=== PATIENT | male | born 1955 | race Caucasian/White ===

== ENCOUNTER 2017-01-31 11:50 | Emergency (ER) | payer OTHER ==
[~2017-01-31] VITALS: Ht 188 cm; Wt 155.0 kg
[~2017-01-31 11:50] MED LIST: HYDR-3533 PO
[2017-01-31 11:52] VITALS: BP 132/73; PULSE 95; RESP 20; TEMP 97.9; O2SAT 92
--- NOTE | 2017-01-31 12:15 | PD ---
HPI Chief Complaint: Skin Problem Time Seen by Provider: 12:14 Travel History International Travel<30 days: No Contact w/Intl Traveler<30days: No Traveled to known affect area: No History of Present Illness HPI Is a 61-year-old male with history of peripheral vascular disease, hypertension , diabetes, coronary artery disease, venous stasis dermatitis who presents for evaluation of weeping from right lower extremity venous stasis changes. He reports chronic clear colored weeping from his right lower extremity. He has a wound care nurse come by his house 3 times a week to help with dressing changes. Most recently he had his dressings changed on Saturday. Yesterday when the dressings were taken off he noted some green and yellow discharge which to him indicates an early infection. [facility]. He does endorse mildly increased pain to the right lower extremity with past 3 days as well. Pain is aggravated by palpation, movement. No fevers or chills. No other complaints. PFSH Past Medical History Hx Anticoagulant Therapy: Yes (warfarin) Arthritis: Yes (OA) Asthma: No Atrial Fibrillation: Yes Autoimmune Disease: No Blood Disorders: Yes (PT. HAS HISTORY OF BLOOD CLOTS.) Anxiety: No Depression: No Heart Rhythm Problems: Yes Cardiac Catheterization: Yes Cardiomyopathy: Yes Cardiovascular Problems: Yes High Cholesterol: Yes Chemotherapy: No Chest Pain: Yes Congestive Heart Failure: Yes COPD: Yes Cerebrovascular Accident: Yes (copd) Coronary Artery Disease: Yes Diabetes: Yes Patient Takes Glucophage: Yes Diminished Hearing: No Deep Vein Thrombosis: Yes (MULTIPLE) Endocrine: Yes Gastrointestinal Disorders: No GERD: No Glaucoma: No Genitourinary: No Headaches: Yes Hepatitis: No Hiatal Hernia: No Hypertension: Yes Immune Disorder: No Implanted Vascular Access Dvce: Yes (PORT RIGHT CHEST WALL) Kidney Stones: No Medical other: Yes Musculoskeletal: Yes (DEGENERATIVE DISC DISEASE) Neurologic: Yes (BRAIN SURGERY, ANEURYSM CLIPPED IN 1990, ESSENTIAL TREMORS) Psychiatric: No Reproductive: No Respiratory: Yes Integumentary: Yes (CELLULITIS) Migraines: Yes Myocardial Infarction: Yes (X 2) Radiation Therapy: No Renal Failure: No Seizures: Yes (last seizure 1989) Sleep Apnea: Yes Thyroid Disease: No Ulcer: No Past Surgical History Abdominal Surgery: Yes (APPENDECTOMY) AICD: No Appendectomy: Yes Arteriovenous Shunt: No Body Medical Devices: BRAIN CLIPS, INFUSAPORT TO RIGHT CHEST Cardiac Surgery: No Cholecystectomy: No Ear Surgery: No Endocrine Surgery: No Eye Surgery: No Genitourinary Surgery: No Gynecologic Surgery: No Insulin Pump: No Joint Replacement: No Neurologic Surgery: Yes (BRAIN ANURYSIM CLIPPED IN 1990.) Oral Surgery: No Pacemaker: No Thoracic Surgery: Yes (TENSION PNEUMOTHORAX-CHEST TUBE --RIGHT) Tonsillectomy: Yes (1956) Other Surgery: Yes (RIGHT ULNAR NERVE TRANSPOSITION 1990, HEMORRHOIDECTOMY, INFUSAPORT R-CHEST) Social History Alcohol Use: Yes Tobacco Use: Yes (1 ppd) Substance Use: No (unknown) Allergies-Medications (Allergen,Severity, Reaction): Coded Allergies: Betadine (Verified Allergy, Severe, 06/25/16) Contrast Media (Verified Allergy, Severe, SHOCK, 06/25/16) Iodine (Verified Allergy, Severe, 06/25/16) MRI PRECAUTION (Verified Allergy, Severe, ANEURSYM CLIPPING, 06/25/16) Reported Meds & Prescriptions Reported Meds & Active Scripts Active Ciprofloxacin (Ciprofloxacin HCl) 500 Mg Tab 500 Mg PO BID 10 Days Clindamycin (Clindamycin HCl) 300 Mg Cap 300 Mg PO TID 10 Days Reported Glipizide 10 Mg Tab 20 Mg PO BID Take 30 minutes before a meal Venlafaxine ER 24 HR (Venlafaxine HCl) 150 Mg Tab 300 Mg PO DAILY Vitamin D3 (Cholecalciferol) 1,000 Unit Tab 1,000 Units PO DAILY Diltiazem CD 24 HR 240 Mg Caper 240 Mg PO DAILY Potassium Chloride ER (Potassium Chloride) 10 Meq Cap 10 Meq PO DAILY Primidone 50 Mg Tab 50 Mg PO TID Pravastatin 20 Mg Tab 20 Mg PO HS Warfarin 5 Mg Tab 7.5 Mg PO MOWEFR Take 1&1/2 tabs (7.5mg) on Saturday,Saturday and Saturday Warfarin 5 Mg Tab 5 Mg PO SUTUTHSA Take 1 tablet (5mg) on Saturday,Saturday, and Saturday Folate (Folic Acid) 1 Mg Tab 1 Mg PO DAILY Metformin (Metformin HCl) 500 Mg Tab 1,000 Mg PO DAILY IN THE PM Metformin (Metformin HCl) 500 Mg Tab 1,500 Mg PO DAILY IN THE AM Spironolactone 25 Mg Tab 25 Mg PO DAILY Gabapentin 100 Mg Cap 100 Mg PO Q6HR Baclofen 10 Mg Tab 10 Mg PO TID Review of Systems Except as stated in HPI: all other systems reviewed are Neg Physical Exam Narrative GENERAL: Obese male in no acute distress. SKIN: Warm and dry. See medication of the right lower extremity reveals venous stasis changes, generalized tenderness to palpation, some seeping of yellow fluid from the anterior right coates. Minimal erythematous changes are noted. HEAD: Atraumatic. Normocephalic. EYES: Pupils equal and round. No scleral icterus. No injection or drainage. ENT: No nasal bleeding or discharge. Mucous membranes pink and moist. NECK: Trachea midline. No JVD. CARDIOVASCULAR: Regular rate and rhythm. No murmur appreciated. RESPIRATORY: No accessory muscle use. Clear to auscultation. Breath sounds equal bilaterally. GASTROINTESTINAL: Abdomen soft, non-tender, nondistended. Hepatic and splenic margins not palpable. MUSCULOSKELETAL: No obvious deformities. Skin as noted above with 1+ lower extremity edema. NEUROLOGICAL: Awake and alert. No obvious cranial nerve deficits. Motor grossly within normal limits. Normal speech. Data Data Last Documented VS Vital Signs Date Time Temp Pulse Resp B/P Pulse Ox O2 Delivery O2 Flow Rate FiO2 01/31/17 12:09 16 01/31/17 11:52 97.9 95 132/73 92 Orders Complete Blood Count With Diff (01/31/17 12:13) Basic Metabolic Panel (Bmp) (01/31/17 12:13) Lactic Acid (01/31/17 12:13) Blood Culture (01/31/17 12:13) Wound Culture And Gram Stain (01/31/17 12:13) Iv Access Insert/Monitor (01/31/17 12:13) Prothrombin Time / Inr (Pt) (01/31/17 12:15) Vancomycin Inj (Vancomycin Inj) (01/31/17 13:30) Piperacil-Tazo 3.375 Gm Premix (Zosyn 3. (01/31/17 13:30) Labs Laboratory Tests Test 01/31/17 12:40 White Blood Count 15.5 TH/MM3 Red Blood Count 4.10 MIL/MM3 Hemoglobin 10.8 GM/DL Hematocrit 33.9 % Mean Corpuscular Volume 82.7 FL Mean Corpuscular Hemoglobin 26.4 PG Mean Corpuscular Hemoglobin 31.9 % Concent Red Cell Distribution Width 17.5 % Platelet Count 373 TH/MM3 Mean Platelet Volume 7.7 FL Neutrophils (%) (Auto) 74.7 % Lymphocytes (%) (Auto) 15.3 % Monocytes (%) (Auto) 6.5 % Eosinophils (%) (Auto) 2.6 % Basophils (%) (Auto) 0.9 % Neutrophils # (Auto) 11.6 TH/MM3 Lymphocytes # (Auto) 2.4 TH/MM3 Monocytes # (Auto) 1.0 TH/MM3 Eosinophils # (Auto) 0.4 TH/MM3 Basophils # (Auto) 0.1 TH/MM3 CBC Comment DIFF FINAL Differential Comment Prothrombin Time 25.4 SEC Prothromb Time International 2.2 RATIO Ratio Sodium Level 134 MEQ/L Potassium Level 4.5 MEQ/L Chloride Level 99 MEQ/L Carbon Dioxide Level 27.8 MEQ/L Anion Gap 7 MEQ/L Blood Urea Nitrogen 14 MG/DL Creatinine 0.84 MG/DL Estimat Glomerular Filtration 92 ML/MIN Rate Random Glucose 95 MG/DL Lactic Acid Level 2.0 mmol/L Calcium Level 9.6 MG/DL MDM Medical Decision Making Medical Screen Exam Complete: Yes Emergency Medical Condition: Yes Medical Record Reviewed: Yes Differential Diagnosis Venous stasis dermatitis, early cellulitis, abscess, erysipelas, necrotizing fasciitis, osteomyelitis Narrative Course Physical examination reveals primarily chronic he continues changes to the right lower extremity with some degree of mild superimposed infection. A wound culture was performed. Plans for basic lab work, blood cultures. He will be given vancomycin and Zosyn here. Lab work has been reviewed. He does have some leukocytosis with WBC count of 15.5, 74% neutrophils. He does appear stable for outpatient therapy with close follow-up. Per chart review he has had issues with polymicrobial infections on the right lower extremity so he will require broad-spectrum antibiotics empirically pending culture results. He will be given clindamycin as well as ciprofloxacin for gram-negative coverage. Recommended close monitoring of INR, outpatient follow-up with his primary care physician in 4 days. He understands to return for evidence of worsening infection. He is stable for discharge. Diagnosis Primary Impression: Venous stasis dermatitis of right lower extremity Additional Impression: Cellulitis Qualified Code: L03.115 - Cellulitis of right lower extremity Additional Instructions: Medication as prescribed. Monitor INR while on antibiotics. Follow-up with primary care physician in 3-4 days for recheck. Return for new or worsening symptoms. Med/Other Pt SpecificInfo: Prescription(s) given Scripts Ciprofloxacin 500 Mg [id number] Mg PO BID 10 Days Ref 0 Prov:Louis Cabello MD 01/31/17 Clindamycin 300 Mg [id number] Mg PO TID 10 Days Ref 0 Prov:Louis Cabello MD 01/31/17 Disposition: 01 DISCHARGE HOME Condition: Stable Jose C Hayes January 31, 2017 12:15
[2017-01-31] MEDS ORDERED: VENL150T PO (12:38)
[2017-01-31] MEDS ORDERED: VITA100018 PO (12:38)
[2017-01-31] MEDS ORDERED: GABA100C4 PO (12:38)
[2017-01-31] MEDS ORDERED: FOLI1TAB4 PO (12:38)
[2017-01-31] MEDS ORDERED: PRAV20TA2 PO (12:38)
[2017-01-31] MEDS ORDERED: PRIM50TA5 PO (12:38)
[2017-01-31] MEDS ORDERED: GLIP10TA6 PO (12:38)
[2017-01-31] MEDS ORDERED: BACL10TA PO ×2 (12:38→14:20)
[2017-01-31] MEDS ORDERED: METF500T PO ×2 (12:38)
[2017-01-31] MEDS ORDERED: POTA10CA PO (12:38)
[2017-01-31] MEDS ORDERED: DILT-64 PO (12:38)
[2017-01-31] MEDS ORDERED: WARF-23 PO ×2 (12:38)
[2017-01-31] MEDS ORDERED: SPIR25TA PO (12:38)
[2017-01-31 13:01] LABS: AUTOMATED NEUTROPHIL # 11.6 TH/MM3 (1.8-7.7); BASOPHIL # 0.1 TH/MM3 (0-0.2); BASOPHIL % 0.9 % (0.0-2.0); EOSINOPHIL # 0.4 TH/MM3 (0-0.4); EOSINOPHIL % 2.6 % (0.0-4.0); HEMATOCRIT 33.9 % (39.0-51.0); HEMO FLAGS DIFF FINAL; LYMPH % 15.3 % (9.0-44.0); LYMPHOCYTE # 2.4 TH/MM3 (1.0-4.8); MEAN CELL VOLUME 82.7 FL (80.0-100.0); MEAN CORPUSCULAR HEMOGLOBIN 26.4 PG (27.0-34.0); MEAN CORPUSCULAR HGB CONC 31.9 % (32.0-36.0); MONO % 6.5 % (0.0-8.0); NEUT % 74.7 % (16.0-70.0); PLATELET COUNT 373 TH/MM3 (150-450); RED CELL DISTRIBUTION WIDTH 17.5 % (11.6-17.2); WHITE BLOOD COUNT 15.5 TH/MM3 (4.0-11.0)
[2017-01-31 13:10] LABS: INTERNATIONAL NORMALIZED RATIO 2.2 RATIO; PROTHROMBIN TIME - PATIENT 25.4 SEC (9.8-11.6)
[2017-01-31 13:27] LABS: BICARBONATE 27.8 MEQ/L (21.0-32.0); POTASSIUM 4.5 MEQ/L (3.5-5.1)
[2017-01-31] MEDS ORDERED: PIPERACIL-TAZO 3.375 GM PREMIX 50 ML IV ONE (13:30)
[2017-01-31] MEDS ORDERED: VANCOMYCIN INJ 1,000 MG in SODIUM CHLOR 0.9% 250 ML INJ 250 ML IV ONE (13:30)
[2017-01-31] MEDS ORDERED: CIPR500T2 PO (13:31)
[2017-01-31] MEDS ORDERED: CLIN1CAP6 PO (13:31)
[2017-01-31] MEDS ORDERED: INSU100V2 SQ (14:20)
[2017-01-31] MEDS ORDERED: LYRI100C PO (14:20)
[2017-01-31] MEDS ORDERED: ACETAMINOPHEN/CODEINE 300 MG/30 MG TAB PO ONE (15:30)
[2017-01-31 15:46] VITALS: BP 142/74
== END 2017-01-31 15:48 | disposition home or self-care (01) ==
LOC: NEPE 11:50
DX: L03.115 Cellulitis of right lower limb (principal); I87.2 Venous insufficiency (chronic) (peripheral); I10 Essential (primary) hypertension; E11.9 Type 2 diabetes mellitus without complications; I25.10 Atherosclerotic heart disease of native coronary artery without angina pectoris; I73.9 Peripheral vascular disease, unspecified; I48.91 Unspecified atrial fibrillation; I42.9 Cardiomyopathy, unspecified; E78.00 Pure hypercholesterolemia, unspecified; I50.9 Heart failure, unspecified; J44.9 Chronic obstructive pulmonary disease, unspecified; I25.2 Old myocardial infarction; G47.30 Sleep apnea, unspecified; F17.210 Nicotine dependence, cigarettes, uncomplicated; Z86.718 Personal history of other venous thrombosis and embolism; Z79.01 Long term (current) use of anticoagulants; B96.5 Pseudomonas (aeruginosa) (mallei) (pseudomallei) as the cause of diseases classified elsewhere; B96.4 Proteus (mirabilis) (morganii) as the cause of diseases classified elsewhere; B95.61 Methicillin susceptible Staphylococcus aureus infection as the cause of diseases classified elsewhere
CPT/HCPCS: 80048; 83605; 85025; 85610; 87040; 87070; 87077; 87186; 87205; 96365; 96367; 99283; J1642; J2543; J3370; J7050

== ENCOUNTER 2017-02-05 13:40 | Inpatient (IN) | payer OTHER, MEDICARE ==
[~2017-02-05] VITALS: Ht 188 cm; Wt 156.1 kg
[~2017-02-05 13:40] MED LIST changes: +BACL10TA PO; +CIPR500T2 PO; +CLIN1CAP6 PO; +DILT-64 PO; +FOLI1TAB4 PO; +GABA100C4 PO; +GLIP10TA6 PO; -HYDR-3533 PO; +INSU100V2 SQ; +LYRI100C PO; +METF500T PO; +POTA10CA PO; +PRAV20TA2 PO; +PRIM50TA5 PO; +SPIR25TA PO; +VENL150T PO; +VITA100018 PO; +WARF-23 PO
[2017-02-05 13:48] VITALS: BP 135/77; PULSE 96; TEMP 98.4; O2SAT 96
--- NOTE | 2017-02-05 15:08 | PD ---
HPI Chief Complaint: Skin Problem Time Seen by Provider: 15:08 Travel History International Travel<30 days: No Contact w/Intl Traveler<30days: No Traveled to known affect area: No History of Present Illness HPI 61-year-old male presents to the emergency department sent by the [facility] for IV antibiotics. Patient was seen on Saturday, 3 days ago for infection to the right lower leg. Patient was discharged prescription for clindamycin and ciprofloxacin. He states he is taking these as prescribed, but symptoms are worsening. 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 Patient states his symptoms worsened on . He states that since then, the right lower extremity has become increasingly edematous, or are light drainage and more painful. He denies any fevers. He has no other complaints at this time. PFSH Past Medical History Hx Anticoagulant Therapy: Yes (COUMADIN) Arthritis: Yes (OA) Asthma: No Atrial Fibrillation: Yes Autoimmune Disease: No Blood Disorders: Yes (PT. HAS HISTORY OF BLOOD CLOTS.) Anxiety: No Depression: No Heart Rhythm Problems: Yes Cardiac Catheterization: Yes Cardiomyopathy: Yes Cardiovascular Problems: Yes ([place] X 2) High Cholesterol: Yes Chemotherapy: No Chest Pain: Yes Congestive Heart Failure: Yes COPD: Yes Cerebrovascular Accident: Yes Coronary Artery Disease: Yes Diabetes: Yes Diminished Hearing: No Deep Vein Thrombosis: Yes (MULTIPLE) Endocrine: Yes Gastrointestinal Disorders: No GERD: No Glaucoma: No Genitourinary: No Headaches: Yes Hepatitis: No Hiatal Hernia: No Hypertension: Yes Immune Disorder: No Implanted Vascular Access Dvce: Yes (PORT RIGHT CHEST WALL) Kidney Stones: No Musculoskeletal: Yes (DEGENERATIVE DISC DISEASE) Neurologic: Yes (BRAIN SURGERY, ANEURYSM CLIPPED IN 1990, ESSENTIAL TREMORS) Psychiatric: No Reproductive: No Respiratory: Yes (COPD) Integumentary: Yes (CELLULITIS) Migraines: Yes Myocardial Infarction: Yes (X 2) Radiation Therapy: No Renal Failure: No Seizures: Yes (last seizure 1989) Sleep Apnea: Yes Thyroid Disease: No Ulcer: No Past Surgical History Abdominal Surgery: Yes (APPENDECTOMY) AICD: No Appendectomy: Yes Arteriovenous Shunt: No Body Medical Devices: BRAIN CLIPS, INFUSAPORT TO RIGHT CHEST Cardiac Surgery: No Cholecystectomy: No Ear Surgery: No Endocrine Surgery: No Eye Surgery: No Genitourinary Surgery: No Gynecologic Surgery: No Insulin Pump: No Joint Replacement: No Neurologic Surgery: Yes (BRAIN ANURYSIM CLIPPED IN 1990.) Oral Surgery: No Pacemaker: No Thoracic Surgery: Yes (TENSION PNEUMOTHORAX-CHEST TUBE --RIGHT) Tonsillectomy: Yes (1956) Other Surgery: Yes (RIGHT ULNAR NERVE TRANSPOSITION 1990, HEMORRHOIDECTOMY, INFUSAPORT R-CHEST) Social History Alcohol Use: Yes Tobacco Use: Yes (1 ppd) Substance Use: No (unknown) Allergies-Medications (Allergen,Severity, Reaction): Coded Allergies: Betadine (Verified Allergy, Severe, 02/05/17) Contrast Media (Verified Allergy, Severe, SHOCK, 02/05/17) Iodine (Verified Allergy, Severe, 02/05/17) MRI PRECAUTION (Verified Allergy, Severe, ANEURSYM CLIPPING, 02/05/17) Reported Meds & Prescriptions Reported Meds & Active Scripts Active Ciprofloxacin (Ciprofloxacin HCl) 500 Mg Tab 500 Mg PO BID 10 Days Clindamycin (Clindamycin HCl) 300 Mg Cap 300 Mg PO TID 10 Days Reported Baclofen 10 Mg Tab 10 Mg PO QID PRN Lyrica (Pregabalin) 100 Mg Cap 100 Mg PO TID Humulin R Inj (Insulin Human Regular) 1,000 Unit/10 Ml Vial 40 Units SQ ACHS Max dose at bedtime:( )units; sugars < 70,(0)units; sugars 150-199,(5)units; sugars 200-249,(10)units; sugars 250-299,(15)units; sugars 300-349,(20)units; sugars more than 349,(25)units. Glipizide 10 Mg Tab 20 Mg PO BID Take 30 minutes before a meal Venlafaxine ER 24 HR (Venlafaxine HCl) 150 Mg Tab 300 Mg PO DAILY Vitamin D3 (Cholecalciferol) 1,000 Unit Tab 1,000 Units PO DAILY Diltiazem CD 24 HR 240 Mg Caper 240 Mg PO DAILY Potassium Chloride ER (Potassium Chloride) 10 Meq Cap 10 Meq PO DAILY Primidone 50 Mg Tab 50 Mg PO TID Pravastatin 20 Mg Tab 20 Mg PO HS Warfarin 5 Mg Tab 7.5 Mg PO MOWEFR Take 1&1/2 tabs (7.5mg) on Saturday,Saturday and Saturday Warfarin 5 Mg Tab 5 Mg PO SUTUTHSA Take 1 tablet (5mg) on Saturday,Saturday, and Saturday Folate (Folic Acid) 1 Mg Tab 1 Mg PO DAILY Metformin (Metformin HCl) 500 Mg Tab 1,000 Mg PO DAILY IN THE PM Metformin (Metformin HCl) 500 Mg Tab 1,500 Mg PO DAILY IN THE AM Spironolactone 25 Mg Tab 25 Mg PO DAILY Gabapentin 100 Mg Cap 100 Mg PO Q6HR Baclofen 10 Mg Tab 10 Mg PO TID Review of Systems Except as stated in HPI: all other systems reviewed are Neg Physical Exam Narrative GENERAL: Well-nourished, well-developed obese male patient, afebrile. SKIN: Focused skin assessment warm/dry. Patient has what appears to be chronic swelling of the right lower extremity with foul smelling odor and drainage with erythema that extends from the toes care home up the calf. HEAD: Normocephalic. Atraumatic EYES: No scleral icterus. No injection or drainage. NECK: Supple, trachea midline. No JVD or lymphadenopathy. CARDIOVASCULAR: Regular rate and rhythm without murmurs, gallops, or rubs. Right posterior tibial pulse was found with Doppler. Unable to locate right pedal pulse due to pain. RESPIRATORY: Breath sounds equal bilaterally. No accessory muscle use. Lungs sounds are clear to auscultation. GASTROINTESTINAL: Abdomen soft, non-tender, nondistended. MUSCULOSKELETAL: No cyanosis, or edema. Patient is status post amputation to the left lower extremity. BACK: Nontender without obvious deformity. No CVA tenderness. Data Data Last Documented VS Vital Signs Date Time Temp Pulse Resp B/P Pulse Ox O2 Delivery O2 Flow Rate FiO2 02/05/17 15:01 80 22 02/05/17 13:48 98.4 135/77 96 Orders Complete Blood Count With Diff (02/05/17 14:58) Basic Metabolic Panel (Bmp) (02/05/17 14:58) Prothrombin Time / Inr (Pt) (02/05/17 14:58) Act Partial Throm Time (Ptt) (02/05/17 14:58) Blood Culture (02/05/17 14:58) Foot, Complete (Bsh0ctd) (02/05/17 ) Tibia/Fibula (Ap/Lat) (02/05/17 ) Gentamicin Inj (Gentamicin Inj) (02/05/17 15:15) Lactic Acid Sepsis Protocol (02/05/17 15:23) Admit Order (Ed Use Only) (02/05/17 16:56) Admit To Inpatient (02/05/17 ) Vital Signs (Adult) Q4H (02/05/17 16:57) Activity Oob Ad Asiya (02/05/17 16:57) Diet 1800 Ada Cons Carb (02/05/17 Dinner) Sodium Chloride 0.9% Flush (Ns Flush) (02/05/17 17:00) Sodium Chloride 0.9% Flush (Ns Flush) (02/05/17 21:00) Acetaminophen (Tylenol) (02/05/17 17:00) Ondansetron Inj (Zofran Inj) (02/05/17 17:00) Basic Metabolic Panel (Bmp) (02/06/17 06:00) Complete Blood Count With Diff (02/06/17 06:00) Naloxone Inj (Narcan Inj) (02/05/17 17:00) Inpatient Certification (02/05/17 ) Bedside Glucose CURT.AC&HS (02/05/17 16:57) Blood Glucose Goal (Criteria) (02/05/17 16:57) Hypoglycemia 70 Mg/Dl Or < (02/05/17 16:57) Notify Dr: Other (02/05/17 16:57) Dextrose 50% In Luis Carlos (Vial) Inj (D50w (Vi (02/05/17 17:00) Glucagon Inj (Glucagon Inj) (02/05/17 17:00) Insulin Aspart Supplemtl Scale (Novolog (02/05/17 21:00) Consult Infectious Disease (02/05/17 ) Labs Laboratory Tests Test 02/05/17 15:46 White Blood Count 12.3 TH/MM3 Red Blood Count 3.89 MIL/MM3 Hemoglobin 10.2 GM/DL Hematocrit 31.9 % Mean Corpuscular Volume 81.8 FL Mean Corpuscular Hemoglobin 26.3 PG Mean Corpuscular Hemoglobin 32.1 % Concent Red Cell Distribution Width 17.8 % Platelet Count 343 TH/MM3 Mean Platelet Volume 8.0 FL Neutrophils (%) (Auto) 71.0 % Lymphocytes (%) (Auto) 18.5 % Monocytes (%) (Auto) 6.0 % Eosinophils (%) (Auto) 3.0 % Basophils (%) (Auto) 1.5 % Neutrophils # (Auto) 8.7 TH/MM3 Lymphocytes # (Auto) 2.3 TH/MM3 Monocytes # (Auto) 0.7 TH/MM3 Eosinophils # (Auto) 0.4 TH/MM3 Basophils # (Auto) 0.2 TH/MM3 CBC Comment DIFF FINAL Differential Comment Prothrombin Time 24.5 SEC Prothromb Time International 2.1 RATIO Ratio Activated Partial 68.2 SEC Thromboplast Time Sodium Level 135 MEQ/L Potassium Level 4.0 MEQ/L Chloride Level 99 MEQ/L Carbon Dioxide Level 30.6 MEQ/L Anion Gap 5 MEQ/L Blood Urea Nitrogen 12 MG/DL Creatinine 0.78 MG/DL Estimat Glomerular Filtration 101 ML/MIN Rate Random Glucose 123 MG/DL Lactic Acid Level 1.6 mmol/L Calcium Level 8.9 MG/DL [facility] Medical Decision Making Medical Screen Exam Complete: Yes Emergency Medical Condition: Yes Medical Record Reviewed: Yes Interpretation(s) Last Impressions Tibia/Fibula X-Ray 02/05/17 0000 Signed Impressions: Service Date/Time: Sunday, February 05, 2017 15:19 - CONCLUSION: Diffuse subcutaneous edema and soft tissue swelling. No acute osseous abnormality is identified. Jorge Alberto Bazzi MD Foot X-Ray 02/05/17 0000 Signed Impressions: Service Date/Time: Sunday, February 05, 2017 15:13 - CONCLUSION: Severe relatively diffuse soft tissue swelling of the foot similar to the prior study. No acute osseous abnormality is identified. Jorge Alberto Bazzi MD Differential Diagnosis Venous stasis dermatitis versus cellulitis versus abscess versus osteomyelitis Narrative Course 61-year-old male presents to the emergency department for worsening right lower leg infection, currently on clindamycin and ciprofloxacin with worsening symptoms. CBC, BMP, PTT, PTT/INR, lactic acid are ordered and pending. X-ray of the right foot and right tibia/fibula are ordered and pending. I reviewed the sensitivity of the culture results from the wound culture taken on Saturday which shows that it is sensitive to gentamicin. I contacted the pharmacy for dosing. Pharmacy states that ideal body weight should be used and the dosage is 330 mg. Order is placed. CBC shows leukocytosis 12.3, neutrophilia 71.0. BMP shows no acute abnormality. Lactic acid is 1.6. PTT is 68.2. PT/INR is 24.5/2.1. X-ray of the right foot shows no acute osseous abnormality. X-ray of the right tibia/ fibula shows no acute osseous abnormality. [facility] is paged for admission. Dr. Gonzalez accepted admission. Diagnosis Primary Impression: Cellulitis Qualified Code: L03.115 - Cellulitis of right lower extremity Additional Impression: Venous stasis dermatitis of right lower extremity Admitting Information Admitting Physician Requests: Admit Bernadette Cid February 05, 2017 15:08
[2017-02-05] MEDS ORDERED: SODIUM CHLORIDE 0.9% IV ONE (15:15)
[2017-02-05] MEDS ORDERED: GENTAMICIN IV ONE (15:15)
--- NOTE | 2017-02-05 15:38 | RADRPT ---
EXAM DATE/TIME: 02/05/2017 15:13 [facility] COMPARISON: FOOT RIGHT COMPLETE ([id number]), August 16, 2016, 21:27. INDICATIONS : Pain in right foot. MEDICAL HISTORY : Chronic obstructive pulmonary disease. Stroke. Diabetes SURGICAL HISTORY : Amputation of left lower leg ENCOUNTER: Initial ACUITY: 1 day PAIN SCORE: 0/10 LOCATION: Right foot FINDINGS: 4 views of the right foot demonstrate no fracture or dislocation. Lisfranc joint appears intact. Ther e is severe relatively diffuse soft tissue swelling of the foot. No radiopaque foreign body is seen. CONCLUSION: Severe relatively diffuse soft tissue swelling of the foot similar to the prior study. No acute osseo us abnormality is identified. Jorge Alberto Bazzi MD on February 05, 2017 at 15:35 Board Certified Radiologist. This report was verified electronically.
--- NOTE | 2017-02-05 15:39 | RADRPT ---
EXAM DATE/TIME: 02/05/2017 15:19 [facility] COMPARISON: TIBIA/FIBULA RIGHT (AP/LAT), May 12, 2016, 16:58. INDICATIONS : Lower right leg pain. MEDICAL HISTORY : Stroke. Chronic obstructive pulmonary disease. Diabetes. SURGICAL HISTORY : None. ENCOUNTER: Initial ACUITY: 1 day PAIN SCORE: 0/10 LOCATION: Right tib fib FINDINGS: 4 views of the right leg demonstrate no fracture or dislocation. Mineralization is normal. There is d iffuse soft tissue swelling and subcutaneous edema. Osteoarthritis is present at the knee joint. No r adiopaque foreign body is seen. CONCLUSION: Diffuse subcutaneous edema and soft tissue swelling. No acute osseous abnormality is identified. Jorge Alberto Bazzi MD on February 05, 2017 at 15:37 Board Certified Radiologist. This report was verified electronically.
[2017-02-05 16:15] LABS: AUTOMATED NEUTROPHIL # 8.7 TH/MM3 (1.8-7.7); BASOPHIL # 0.2 TH/MM3 (0-0.2); BASOPHIL % 1.5 % (0.0-2.0); EOSINOPHIL # 0.4 TH/MM3 (0-0.4); HEMATOCRIT 31.9 % (39.0-51.0); HEMO FLAGS DIFF FINAL; LYMPH % 18.5 % (9.0-44.0); LYMPHOCYTE # 2.3 TH/MM3 (1.0-4.8); MEAN CELL VOLUME 81.8 FL (80.0-100.0); MEAN CORPUSCULAR HEMOGLOBIN 26.3 PG (27.0-34.0); MEAN CORPUSCULAR HGB CONC 32.1 % (32.0-36.0); PLATELET COUNT 343 TH/MM3 (150-450); RED BLOOD COUNT 3.89 MIL/MM3 (4.50-5.90); RED CELL DISTRIBUTION WIDTH 17.8 % (11.6-17.2); WHITE BLOOD COUNT 12.3 TH/MM3 (4.0-11.0)
[2017-02-05 16:25] LABS: APTT (PATIENT) 68.2 SEC (24.3-30.1); INTERNATIONAL NORMALIZED RATIO 2.1 RATIO; PROTHROMBIN TIME - PATIENT 24.5 SEC (9.8-11.6)
[2017-02-05 16:36] LABS: BICARBONATE 30.6 MEQ/L (21.0-32.0)
[2017-02-05] MEDS ORDERED: DEXTROSE 50% IN WATER 50 ML VIAL(D50) IV PRN (17:00)
[2017-02-05] MEDS ORDERED: NALOXONE HCL 0.4 MG/ML AMP IV PRN (17:00)
[2017-02-05] MEDS ORDERED: ACETAMINOPHEN 325 MG TAB PO PRN (17:00)
[2017-02-05] MEDS ORDERED: GLUCAGON 1 MG/ML VIAL OTHER PRN (17:00)
[2017-02-05] MEDS ORDERED: ONDANSETRON HCL 4 MG/2 ML VIAL IV ONE (17:30)
[2017-02-05] MEDS ORDERED: MORPHINE SULFATE 4 MG/ML INJ IV PUSH ONE (17:30)
--- NOTE | 2017-02-05 18:29 | HHI.HP ---
[facility] Admission Diagnosis right lower extremity cellulitis, failed outpatient therapy Diagnoses: Chief Complaint: Right leg infection Travel History International Travel<30 Days: No Contact w/Intl Traveler <30 Da: No Traveled to Known Affected Are: No Sepsis Criteria SIRS Criteria (2 or more): Heart rate over 90, RR > 20 or PaCO2 < 32, WBC > 37075, < 4000 or > 10% bands Sepsis Criteria (SIRS+source): Infect source susp/known Criteria Outcome: Meets sepsis criteria History of Present Illness Written by Lawrence Velazco, acting as scribe for Dr. Gonzalez on 02/05/17 at 18:18. 61-year-old male with a past medical history of PAD, HTN, DM, HLD, CAD, CVA who presented for a right leg infection. Last the patient began having redness of his right lower leg. He went to the ED on Saturday and was prescribed antibiotics for clindamycin and ciprofloxacin. The patient reports that the infection has continued to worsen. He has skin sloughing and yellow drainage. He reports severe pain and swelling in his foot. He denies any fevers or chills. 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 He states that due to persistent right leg swelling, oral antibiotics usually do not work for him and he has had to be on home IV antibiotics in the past. He reports they checked his right leg pulses with the Doppler today. Review of Systems Except as stated in HPI: all other systems reviewed are Neg Past Family Social History Past Medical History History obtained from the patient in the EMR PAD Neuropathy Hypertension Hyperlipidemia Diabetes mellitus Heart attack 2 Stroke 3 History of brain aneurysm status post clipping History of DVT on chronic anticoagulation Agent [place] exposure Depression Past Surgical History Aneurysm clipping in 1990 Left AKA Cholecystectomy Appendectomy Tonsillectomy Hemorrhoidectomy Port placement Reported Medications Reported Meds & Active Scripts Active Ciprofloxacin (Ciprofloxacin HCl) 500 Mg Tab 500 Mg PO BID 10 Days Clindamycin (Clindamycin HCl) 300 Mg Cap 300 Mg PO TID 10 Days Reported Lyrica (Pregabalin) 100 Mg Cap 100 Mg PO TID Humulin R Inj (Insulin Human Regular) 1,000 Unit/10 Ml Vial 40 Units SQ HS Max dose at bedtime:( )units; sugars < 70,(0)units; sugars 150-199,(5)units; sugars 200-249,(10)units; sugars 250-299,(15)units; sugars 300-349,(20)units; sugars more than 349,(25)units. Glipizide 10 Mg Tab 20 Mg PO BID Take 30 minutes before a meal Venlafaxine ER 24 HR (Venlafaxine HCl) 150 Mg Tab 300 Mg PO DAILY Vitamin D3 (Cholecalciferol) 1,000 Unit Tab 1,000 Units PO DAILY Diltiazem CD 24 HR 240 Mg Caper 240 Mg PO DAILY Potassium Chloride ER (Potassium Chloride) 10 Meq Cap 10 Meq PO DAILY Primidone 50 Mg Tab 50 Mg PO TID Pravastatin 20 Mg Tab 20 Mg PO HS Warfarin 5 Mg Tab 7.5 Mg PO MOWEFR Take 1&1/2 tabs (7.5mg) on Saturday,Saturday and Saturday Warfarin 5 Mg Tab 5 Mg PO SUTUTHSA Take 1 tablet (5mg) on Saturday,Saturday, and Saturday Folate (Folic Acid) 1 Mg Tab 1 Mg PO DAILY Metformin (Metformin HCl) 500 Mg Tab 1,000 Mg PO DAILY IN THE PM Metformin (Metformin HCl) 500 Mg Tab 1,500 Mg PO DAILY IN THE AM Spironolactone 25 Mg Tab 25 Mg PO DAILY Gabapentin 100 Mg Cap 100 Mg PO Q6HR Baclofen 10 Mg Tab 10 Mg PO TID Allergies: Coded Allergies: Betadine (Verified Allergy, Severe, 02/05/17) Contrast Media (Verified Allergy, Severe, SHOCK, 02/05/17) Iodine (Verified Allergy, Severe, 02/05/17) MRI PRECAUTION (Verified Allergy, Severe, ANEURSYM CLIPPING, 02/05/17) Active Ordered Medications Current Medications Medications (Trade) Dose Ordered Sig/Carrie Route Start Time Stop Time Status Last Admin (NS Flush) 2 ml UNSCH PRN IV FLUSH 02/05/17 17:00 (NS Flush) 2 ml BID IV FLUSH 02/05/17 21:00 (Tylenol) 650 mg Q4H PRN PO 02/05/17 17:00 (Zofran Inj) 4 mg Q6H PRN IVP 02/05/17 17:00 (Narcan Inj) 0.4 mg UNSCH PRN IV 02/05/17 17:00 (D50w (Vial) Inj) 50 ml UNSCH PRN IV 02/05/17 17:00 (Glucagon Inj) 1 mg UNSCH PRN OTHER 02/05/17 17:00 Family History Adopted, family history unknown Social History Continues to smoke, currently less than one pack per day. Has smoked since age 11 Denies any alcohol or drug use Physical Exam Vital Signs Vital Signs Date Time Temp Pulse Resp B/P Pulse Ox O2 Delivery O2 Flow Rate FiO2 02/05/17 15:01 80 22 02/05/17 13:48 98.4 96 135/77 96 Physical Exam GENERAL: Well-developed well-nourished. Morbidly obese. In no acute distress. SKIN: Venous stasis skin changes of the right lower leg. Yellowish drainage and sloughing of the right lower leg. Maceration of the skin of the right lower leg. Swelling, tenderness, and erythema of the dorsum of the foot. HEENT: Normocephalic. Pupils equal and round. Mucous membranes pink and moist. CARDIOVASCULAR: Regular rate and rhythm. No murmur appreciated. RESPIRATORY: No accessory muscle use. Clear to auscultation. Breath sounds equal bilaterally. GASTROINTESTINAL: Abdomen soft, non-tender, nondistended. Bowel sounds x4. MUSCULOSKELETAL: Right lower extremity as above. Left AKA. NEUROLOGICAL: Awake and alert. No focal neurological deficits. Moves upper and lower extremities spontaneously. Normal speech. PSYCHIATRIC: Appropriate mood and affect; insight and judgment normal. Laboratory Laboratory Tests Test 02/05/17 15:46 White Blood Count 12.3 Red Blood Count 3.89 Hemoglobin 10.2 Hematocrit 31.9 Mean Corpuscular Volume 81.8 Mean Corpuscular Hemoglobin 26.3 Mean Corpuscular Hemoglobin 32.1 Concent Red Cell Distribution Width 17.8 Platelet Count 343 Mean Platelet Volume 8.0 Neutrophils (%) (Auto) 71.0 Lymphocytes (%) (Auto) 18.5 Monocytes (%) (Auto) 6.0 Eosinophils (%) (Auto) 3.0 Basophils (%) (Auto) 1.5 Neutrophils # (Auto) 8.7 Lymphocytes # (Auto) 2.3 Monocytes # (Auto) 0.7 Eosinophils # (Auto) 0.4 Basophils # (Auto) 0.2 CBC Comment DIFF FINAL Differential Comment Prothrombin Time 24.5 Prothromb Time International 2.1 Ratio Activated Partial 68.2 Thromboplast Time Sodium Level 135 Potassium Level 4.0 Chloride Level 99 Carbon Dioxide Level 30.6 Anion Gap 5 Blood Urea Nitrogen 12 Creatinine 0.78 Estimat Glomerular Filtration 101 Rate Random Glucose 123 Lactic Acid Level 1.6 Calcium Level 8.9 Date/Time Procedure Status Source Growth 02/05/17 17:50 Aerobic Blood Culture Received Blood Peripheral Pending 02/05/17 17:50 Anaerobic Blood Culture Received Blood Peripheral Pending Result Diagram: 02/05/17 1546 02/05/17 1546 Imaging Last Impressions Tibia/Fibula X-Ray 02/05/17 0000 Signed Impressions: Service Date/Time: Sunday, February 05, 2017 15:19 - CONCLUSION: Diffuse subcutaneous edema and soft tissue swelling. No acute osseous abnormality is identified. Jorge Alberto Bazzi MD Foot X-Ray 02/05/17 0000 Signed Impressions: Service Date/Time: Sunday, February 05, 2017 15:13 - CONCLUSION: Severe relatively diffuse soft tissue swelling of the foot similar to the prior study. No acute osseous abnormality is identified. Jorge Alberto Bazzi MD Assessment and Plan Assessment and Plan 61-year-old male with a past medical history of PAD, HTN, DM, HLD, CAD, CVA who presented for a right leg infection Right lower extremity acute cellulitis overlying chronic venous stasis. Sepsis. Failed outpatient antibiotic therapy. Reviewed: Heart rate 96. Respiratory rate 22. WBC 12.3. Afebrile. Lactic acid 1.6. Right lower extremity X-rays with edema and soft tissue swelling. Wound culture from 01/31 was polymicrobial with Pseudomonas, Proteus mirabilis, and MSSA. -Patient received IV gentamicin in the ED. Will start Vancomycin and Zosyn. -Follow up blood cultures -Consult ID -Doppler documented in the ED but may need further vascular workup. Diabetes mellitus: Monitor Accu-Cheks. Cover with SSI. History of DVT on chronic anticoagulation: On Coumadin with therapeutic INR. Continue Coumadin. Continue chronic medications per the med rec as indicated. This note was transcribed by saji [Juan A Bravo]. I, Dr. Joyce Gonzalez personally performed the history, physical exam, and medical decision making; and confirmed the accuracy of the information in the transcribed note. Authenticated by Dr. Joyce Gonzalez on 02/05/17 at 19:26. Discussed Condition With Patient, ED staff Lawrence Velazco February 05, 2017 18:28 Joyce Gonzalez MD February 05, 2017 19:26
[2017-02-05 19:06] VITALS: BP 141/74; PULSE 93; RESP 18; O2SAT 95
[2017-02-05] MEDS ORDERED: Vancomycin Consult Pharmacy 1 EA OTHER SCH (19:30)
[2017-02-05] MEDS ORDERED: VANCOMYCIN INJ 1,250 MG in SODIUM CHLOR 0.9% 250 ML INJ 250 ML IV SCH (19:30)
[2017-02-05] MEDS: INSULIN ASPART SUPPLEMENTAL SCALE SQ SCH (21:00)
[2017-02-05] MEDS: SODIUM CHLORIDE 0.9% FLUSH 10 ML FLUSH IV FLUSH SCH (21:00)
[2017-02-05] MEDS: PIPERACIL-TAZO 3.375 GM PREMIX 50 ML IV SCH ×2 (21:26→21:30)
[2017-02-05] MEDS: WARFARIN SOD 5 MG TAB PO SCH (21:26)
[2017-02-05 21:29] VITALS: BP 128/59; PULSE 80; RESP 16; O2SAT 94
[2017-02-05] MEDS: VANCOMYCIN INJ 2,000 MG in SODIUM CHLORID 0.9% 500 ML INJ 500 ML IV SCH (22:00)
[2017-02-05] MEDS: GABAPENTIN 100 MG CAP PO SCH (23:50)
[2017-02-05] MEDS: PRAVASTATIN SOD 20 MG TAB PO SCH (23:50)
[2017-02-05] MEDS: MORPHINE SULFATE 4 MG/ML INJ IV PUSH PRN (23:58)
[2017-02-06] VITALS: BP 131/61; PULSE 93; RESP 20; TEMP 96.3; O2SAT 95
[2017-02-06] MEDS: oxyCODONE/ACETAMINOPHEN 7.5 MG/325 MG TAB PO PRN ×3 (01:15→21:56)
[2017-02-06] MEDS: MORPHINE SULFATE 4 MG/ML INJ IV PUSH PRN ×4 (03:08→17:16)
[2017-02-06 04:00] VITALS: BP 141/73; PULSE 100; RESP 20; TEMP 96.9; O2SAT 92
[2017-02-06] MEDS: ONDANSETRON HCL 4 MG/2 ML VIAL IVP PRN ×2 (06:38)
[2017-02-06] MEDS: GABAPENTIN 100 MG CAP PO SCH ×3 (06:39→17:11)
[2017-02-06] MEDS: INSULIN ASPART SUPPLEMENTAL SCALE SQ SCH ×4 (06:47→21:00)
[2017-02-06 07:51] LABS: AUTOMATED NEUTROPHIL # 9.3 TH/MM3 (1.8-7.7); BASOPHIL # 0.1 TH/MM3 (0-0.2); BASOPHIL % 0.6 % (0.0-2.0); EOSINOPHIL # 0.3 TH/MM3 (0-0.4); EOSINOPHIL % 2.7 % (0.0-4.0); HEMATOCRIT 32.1 % (39.0-51.0); HEMO FLAGS DIFF FINAL; LYMPH % 16.3 % (9.0-44.0); MEAN CELL VOLUME 82.2 FL (80.0-100.0); MEAN CORPUSCULAR HEMOGLOBIN 26.4 PG (27.0-34.0); MEAN CORPUSCULAR HGB CONC 32.1 % (32.0-36.0); MONO % 6.9 % (0.0-8.0); NEUT % 73.5 % (16.0-70.0); PLATELET COUNT 320 TH/MM3 (150-450); RED BLOOD COUNT 3.91 MIL/MM3 (4.50-5.90); RED CELL DISTRIBUTION WIDTH 17.7 % (11.6-17.2); WHITE BLOOD COUNT 12.6 TH/MM3 (4.0-11.0)
[2017-02-06 07:56] LABS: BICARBONATE 32.8 MEQ/L (21.0-32.0); POTASSIUM 4.1 MEQ/L (3.5-5.1)
[2017-02-06 08:00] VITALS: BP 149/80; PULSE 105; RESP 16; TEMP 97.7; O2SAT 83
[2017-02-06] MEDS: VANCOMYCIN INJ 2,000 MG in SODIUM CHLORID 0.9% 500 ML INJ 500 ML IV SCH ×2 (09:03→22:00)
[2017-02-06] MEDS: DILTIAZEM-CD 240 MG CAP ER PO SCH (09:04)
[2017-02-06] MEDS: SPIRONOLACTONE 25 MG TAB PO SCH (09:04)
[2017-02-06] MEDS: FOLIC ACID 1 MG TAB PO SCH (09:04)
[2017-02-06] MEDS: CHOLECALCIFEROL (VIT D3) 1000 UNIT TAB PO SCH (09:04)
[2017-02-06] MEDS: POTASSIUM CHLORIDE 10 MEQ CAP PO SCH (09:04)
[2017-02-06] MEDS: VENLAFAXINE HCL XR 75 MG CAP PO SCH (09:04)
[2017-02-06] MEDS: BACLOFEN 10 MG TAB PO SCH ×3 (09:04→17:11)
[2017-02-06] MEDS: PRIMIDONE 50 MG TAB PO SCH ×3 (09:05→17:11)
[2017-02-06] MEDS: PREGABALIN 100 MG CAP PO SCH ×3 (09:05→17:11)
[2017-02-06] MEDS: SODIUM CHLORIDE 0.9% FLUSH 10 ML FLUSH IV FLUSH SCH ×2 (09:05→21:56)
[2017-02-06] MEDS: PIPERACIL-TAZO 3.375 GM PREMIX 50 ML IV SCH (11:59)
[2017-02-06] MEDS: SODIUM CHLORIDE 0.9% FLUSH 10 ML FLUSH IV FLUSH PRN (11:59)
[2017-02-06 12:00] VITALS: BP 125/64; PULSE 95; RESP 16; TEMP 96.5; O2SAT 93
--- NOTE | 2017-02-06 12:13 | PD.ID.CON ---
History of Present Illness Service ID Consult Requested By Dr Nina Reason for Consult LLE cellulitis Primary Care Physician [facility] Diagnoses: History of Present Illness 61 yo morbidly obese laura gamez with h/o contralateral AKA, wheel chair bound present with redns,, pain of his chronically swollen RLE. He was takin g oral abx for 1 week or so without improvement He denies fever, chills nightsweats On admission he has no fever, no leukocytosis and no lactic acidemia Review of Systems Cardiovascular: COMPLAINS OF: Lower Extremity Edema Neurologic: COMPLAINS OF: Abnormal gait, Poor Balance Except as stated in HPI: all other systems reviewed are Neg Past Family Social History Allergies: Coded Allergies: Betadine (Verified Allergy, Severe, 02/05/17) Contrast Media (Verified Allergy, Severe, SHOCK, 02/05/17) Iodine (Verified Allergy, Severe, 02/05/17) MRI PRECAUTION (Verified Allergy, Severe, ANEURSYM CLIPPING, 02/05/17) Past Medical History History obtained from the patient in the EMR PAD Neuropathy Hypertension Hyperlipidemia Diabetes mellitus Heart attack 2 Stroke 3 History of brain aneurysm status post clipping History of DVT on chronic anticoagulation Agent [place] exposure Depression Past Surgical History Aneurysm clipping in 1990 Left AKA Cholecystectomy Appendectomy Tonsillectomy Hemorrhoidectomy Port placement Active Ordered Medications Medications where reviewed in EMR Antibiotics Include: zosyn vancomycin Family History adopted Social History + Tobacco. 1 ppd since 11 yrs No ETOH. No Illicit Drugs. Physical Exam Vital Signs Vital Signs Date Time Temp Pulse Resp B/P Pulse Ox O2 Delivery O2 Flow Rate FiO2 02/06/17 08:00 97.7 105 16 149/80 83 02/06/17 06:51 18 02/06/17 04:00 96.9 100 20 141/73 92 02/06/17 03:19 18 02/06/17 00:00 96.3 93 20 131/61 95 02/05/17 22:15 80 98 02/05/17 21:29 80 16 128/59 94 Room Air 02/05/17 19:06 93 18 141/74 95 Room Air 02/05/17 18:56 18 02/05/17 15:01 80 22 02/05/17 13:48 98.4 96 135/77 96 Physical Exam CONSTITUTIONAL/GENERAL: This is an morbidly obese patient, in no apparent distress. TUBES/LINES/DRAINS: PORT in place R chest - no skin changes around SKIN: No jaundice, rashes, or lesions. Skin temperature appropriate. Not diaphoretic. HEAD: Atraumatic. Normocephalic. EYES: Pupils equal and round and reactive. Extraocular motions intact. No scleral icterus. No injection or drainage. Fundi not examined. ENT: Hearing grossly normal. Nose without bleeding or purulent drainage. Oral mucosae dry without visible erythema, exudates, masses, or lesions. Poor dentition NECK: Trachea midline. Supple, nontender. CARDIOVASCULAR: Regular rate and rhythm without murmurs, gallops, or rubs. No JVD. Peripheral pulses symmetric. RESPIRATORY/CHEST: Symmetric, unlabored respirations. Clear to auscultation. Breath sounds equal bilaterally. No wheezes, rales, or rhonchi. GASTROINTESTINAL: Abdomen soft, obese non-tender, moderately distended. No hepato-splenomegaly, or palpable masses. No guarding. Bowel sounds present. GENITOURINARY: Without palpable bladder distension. MUSCULOSKELETAL: Extremities without clubbing, cyanosis, L AKA - well healed, no edema RLE with 4+ edema from toes to the up to the knee Scaly dry skin + erythema, RLE very tender to palpation especially swollen, macerated toes warm to touch No ulcerations on heel of foot, the re is superficial maceration in [address] web NEUROLOGICAL: Awake and alert. Motor and sensory grossly within normal limits. Follows commands. Normal speech Moves all extremities. PSYCHIATRIC: No obvious anxiety/depression. no apparent hallucinations or other psychotic thought process. Laboratory Laboratory Tests Test 02/05/17 02/06/17 02/06/17 15:46 06:30 07:38 White Blood Count 12.3 12.6 Red Blood Count 3.89 3.91 Hemoglobin 10.2 10.3 Hematocrit 31.9 32.1 Mean Corpuscular Volume 81.8 82.2 Mean Corpuscular Hemoglobin 26.3 26.4 Mean Corpuscular Hemoglobin 32.1 32.1 Concent Red Cell Distribution Width 17.8 17.7 Platelet Count 343 320 Mean Platelet Volume 8.0 7.6 Neutrophils (%) (Auto) 71.0 73.5 Lymphocytes (%) (Auto) 18.5 16.3 Monocytes (%) (Auto) 6.0 6.9 Eosinophils (%) (Auto) 3.0 2.7 Basophils (%) (Auto) 1.5 0.6 Neutrophils # (Auto) 8.7 9.3 Lymphocytes # (Auto) 2.3 2.0 Monocytes # (Auto) 0.7 0.9 Eosinophils # (Auto) 0.4 0.3 Basophils # (Auto) 0.2 0.1 CBC Comment DIFF FINAL DIFF FINAL Differential Comment Prothrombin Time 24.5 Prothromb Time International 2.1 Ratio Activated Partial 68.2 Thromboplast Time Sodium Level 135 135 Potassium Level 4.0 4.1 Chloride Level 99 97 Carbon Dioxide Level 30.6 32.8 Anion Gap 5 5 Blood Urea Nitrogen 12 11 Creatinine 0.78 0.87 Estimat Glomerular Filtration 101 89 Rate Random Glucose 123 141 Lactic Acid Level 1.6 Calcium Level 8.9 8.6 Date/Time Procedure Status Source Growth 02/05/17 17:50 Aerobic Blood Culture - Preliminary Resulted Blood Peripheral NO GROWTH IN 1 DAY 02/05/17 17:50 Anaerobic Blood Culture - Preliminary Resulted Blood Peripheral NO GROWTH IN 1 DAY Result Diagram: 02/06/17 0738 02/06/17 0630 Imaging Last Impressions Tibia/Fibula X-Ray 02/05/17 0000 Signed Impressions: Service Date/Time: Sunday, February 05, 2017 15:19 - CONCLUSION: Diffuse subcutaneous edema and soft tissue swelling. No acute osseous abnormality is identified. Jorge Alberto Bazzi MD Foot X-Ray 02/05/17 0000 Signed Impressions: Service Date/Time: Sunday, February 05, 2017 15:13 - CONCLUSION: Severe relatively diffuse soft tissue swelling of the foot similar to the prior study. No acute osseous abnormality is identified. Jorge Alberto Bazzi MD Assessment and Plan Assessment and Plan Morbid obesity CHronic venostasis Cellulitis, recurrent RLE DM sp L AKA 2/2 diaberic complications - cont vancomycin - keep RLE evelated -dc zosyn - p need to be refirred to venostasis clinic upon dc Discussed Condition With RN pt Lavonne Robins MD February 06, 2017 12:13
--- NOTE | 2017-02-06 13:00 | HHI.PR ---
Subjective Remarks Patient seen in follow-up for right lower extremity cellulitis He reports is feeling okay. Has not noticed any change. Afebrile. Objective Vitals Vital Signs Date Time Temp Pulse Resp B/P Pulse Ox O2 Delivery O2 Flow Rate FiO2 02/06/17 12:00 96.5 95 16 125/64 93 02/06/17 08:00 97.7 105 16 149/80 83 02/06/17 06:51 18 02/06/17 04:00 96.9 100 20 141/73 92 02/06/17 03:19 18 02/06/17 00:00 96.3 93 20 131/61 95 02/05/17 22:15 80 98 02/05/17 21:29 80 16 128/59 94 Room Air 02/05/17 19:06 93 18 141/74 95 Room Air 02/05/17 18:56 18 02/05/17 15:01 80 22 02/05/17 13:48 98.4 96 135/77 96 I/O 02/05/17 02/05/17 02/05/17 02/06/17 02/06/17 02/06/17 07:00 15:00 23:00 07:00 15:00 23:00 Intake Total 360 ml Output Total 400 ml 200 ml Balance -400 ml 160 ml Intake Oral 360 ml Output Urine Total 400 ml 200 ml Result Diagram: 02/06/17 0738 02/06/17 0630 Imaging Last Impressions Tibia/Fibula X-Ray 02/05/17 0000 Signed Impressions: Service Date/Time: Sunday, February 05, 2017 15:19 - CONCLUSION: Diffuse subcutaneous edema and soft tissue swelling. No acute osseous abnormality is identified. Jorge Alberto Bazzi MD Foot X-Ray 02/05/17 0000 Signed Impressions: Service Date/Time: Sunday, February 05, 2017 15:13 - CONCLUSION: Severe relatively diffuse soft tissue swelling of the foot similar to the prior study. No acute osseous abnormality is identified. Jorge Alberto Bazzi MD Objective Remarks GENERAL: Morbidly obese male. Previous amputation of the left lower extremity CARDIOVASCULAR: Normal rate and regular rhythm without murmurs, gallops, or rubs. RESPIRATORY: Good respiratory efforts. Breath sounds equal and clear to auscultation bilaterally. GASTROINTESTINAL: Abdomen soft, non-tender, non-distended. Normal active bowel sounds MUSCULOSKELETAL: Right lower extremity from below the knee down to the top of the right foot, skin is macerated and there is extensive erythema and sloughing off with some drainage. The toes are sausagelike. NEURO: Alert & Oriented x4 to person, place, time, situation. PSYCH: Appropriate mood and affect. A/P Assessment and Plan 61-year-old male with a past medical history of PAD, HTN, DM, HLD, CAD, CVA who presented for a right leg infection Right lower extremity acute cellulitis overlying chronic venous stasis. Sepsis. Failed outpatient antibiotic therapy. Reviewed: Heart rate 96. Respiratory rate 22. WBC 12.3. Afebrile. Lactic acid 1.6. Right lower extremity X-rays with edema and soft tissue swelling. Wound culture from 01/31 was polymicrobial with Pseudomonas, Proteus mirabilis, and MSSA. -Infectious disease following. Zosyn discontinued. Continue vancomycin -Follow up blood cultures - Agree with ID, patient will need follow-up with wound care and venous stasis clinic. Consult wound care physician for assistance and outpatient follow-up recommendations.. Diabetes mellitus: Monitor Accu-Cheks. Cover with SSI. History of DVT on chronic anticoagulation: On Coumadin. Follow INR. Continue chronic medications per the med rec as indicated. Joyce Gonzalez MD February 06, 2017 13:00
[2017-02-06 16:00] VITALS: BP 116/70; PULSE 89; RESP 16; TEMP 95.4; O2SAT 91
[2017-02-06] MEDS: WARFARIN SOD 7.5 MG TAB PO SCH (16:02)
[2017-02-06 20:00] VITALS: BP 128/95; PULSE 75; RESP 18; TEMP 96.2; O2SAT 95
[2017-02-06] MEDS: PRAVASTATIN SOD 20 MG TAB PO SCH (21:55)
[2017-02-07] VITALS (7 sets, daily range): BP systolic 116–139; BP diastolic 58–88; PULSE 72–85; RESP 15–20; TEMP 95.2–97; O2SAT 86–99
[2017-02-07] MEDS: GABAPENTIN 100 MG CAP PO SCH ×4 (00:09→18:04)
[2017-02-07] MEDS: MORPHINE SULFATE 4 MG/ML INJ IV PUSH PRN ×4 (01:31→18:05)
[2017-02-07] MEDS ORDERED: RESP: ALBUTEROL 2.5 MG/IPRATROPIUM 0.5 MG NEB (PRN) NEB (02:45)
--- NOTE | 2017-02-07 02:58 | RADRPT ---
EXAM DATE/TIME: 02/07/2017 02:36 [facility] COMPARISON: CHEST SINGLE AP, June 29, 2016, 6:12. INDICATIONS : Shortness of breath. MEDICAL HISTORY : Chronic obstructive pulmonary disease. Diabetes mellitus type II. Stroke. SURGICAL HISTORY : None. ENCOUNTER: Initial ACUITY: 1 day PAIN SCORE: 0/10 LOCATION: Bilateral chest FINDINGS: A single view of the chest demonstrates the lungs to be symmetrically aerated without evidence of mas s, infiltrate or effusion. The cardiomediastinal contours are unremarkable. Osseous structures are intact. Right-sided [id number] catheter CONCLUSION: Normal examination with a right-sided [id number] catheter in good position. Rikki Corbin MD on February 07, 2017 at 2:56 Board Certified Radiologist. This report was verified electronically.
[2017-02-07] MEDS ORDERED: ACETAMIN 325 MG/BUTALBITAL 50 MG/CAFFEINE 40 MG TAB PO ONE (03:30)
[2017-02-07] MEDS: INSULIN ASPART SUPPLEMENTAL SCALE SQ SCH ×4 (06:50→20:41)
[2017-02-07] MEDS: FOLIC ACID 1 MG TAB PO SCH (08:13)
[2017-02-07] MEDS: PREGABALIN 100 MG CAP PO SCH ×3 (08:13→18:04)
[2017-02-07] MEDS: DILTIAZEM-CD 240 MG CAP ER PO SCH (08:13)
[2017-02-07] MEDS: SPIRONOLACTONE 25 MG TAB PO SCH (08:13)
[2017-02-07] MEDS: POTASSIUM CHLORIDE 10 MEQ CAP PO SCH (08:13)
[2017-02-07] MEDS: BACLOFEN 10 MG TAB PO SCH ×3 (08:13→18:05)
[2017-02-07] MEDS: CHOLECALCIFEROL (VIT D3) 1000 UNIT TAB PO SCH (08:13)
[2017-02-07] MEDS: PRIMIDONE 50 MG TAB PO SCH ×3 (08:13→18:05)
[2017-02-07] MEDS: VENLAFAXINE HCL XR 75 MG CAP PO SCH (08:13)
[2017-02-07] MEDS: SODIUM CHLORIDE 0.9% FLUSH 10 ML FLUSH IV FLUSH SCH ×2 (08:22→20:39)
[2017-02-07] MEDS: SODIUM CHLORIDE 0.9% FLUSH 10 ML FLUSH IV FLUSH PRN ×3 (08:47→18:05)
[2017-02-07] MEDS ORDERED: PHARMACY ORDERED LAB ONE (09:45)
[2017-02-07] MEDS: VANCOMYCIN INJ 2,000 MG in SODIUM CHLORID 0.9% 500 ML INJ 500 ML IV SCH (11:25)
--- NOTE | 2017-02-07 13:00 | PD.WOU.CON ---
Patient Intake Chief Complaint Right lower extremity venous insufficiency with ulceration Consult Requested by Dr. Gonzalez Reason for Consult Evaluation of edema and ulcerations and treatment [facility] of Present Illness Patient is a 61-year-old morbidly obese diabetic male with history of amputation of the left lower extremity. Patient smokes cigarettes daily. He has severe venous insufficiency of the right lower extremity with ulcerations and drainage. [facility] and states that they did not apply any dressings. He drinks large amounts of fluid per day. He sits with his leg in a dependent position most of the day. Coded Allergies: Betadine (Verified Allergy, Severe, 02/05/17) Contrast Media (Verified Allergy, Severe, SHOCK, 02/05/17) Iodine (Verified Allergy, Severe, 02/05/17) MRI PRECAUTION (Verified Allergy, Severe, ANEURSYM CLIPPING, 02/05/17) Preferred Language to Discuss: Sami Barriers to Learning: Physical Teaching Method: Discussion Vital Signs Date Time Temp Pulse Resp B/P Pulse Ox O2 Delivery O2 Flow Rate FiO2 02/07/17 12:00 95.7 72 15 122/60 96 02/07/17 11:37 96 Nasal Cannula 3.00 02/07/17 08:00 95.2 79 15 139/72 96 02/07/17 04:00 96.5 80 20 126/75 99 02/07/17 02:10 97 Simple Mask 6.00 02/07/17 02:05 86 02/07/17 00:00 96.3 76 20 119/62 95 02/06/17 20:00 96.2 75 18 128/95 95 02/06/17 16:00 95.4 89 16 116/70 91 Pain scale used: 0-10 numeric scale Pain score: 5 Medications Current Medications Gentamicin Sulfate/Sodium Chloride (Gentamicin Inj/ NS Inj) 108.25 ml @ 100 mls / hr ONCE ONCE IV Last administered on 02/05/17 17:31; Start 02/05/17 at 15: 15; Stop 02/05/17 at 16:19; Status DC Sodium Chloride (NS Flush) 2 ml UNSCH PRN IV FLUSH FLUSH AFTER USING IV ACCESS Last administered on 02/07/17 08:47; Start 02/05/17 at 17:00 Sodium Chloride (NS Flush) 2 ml BID IV FLUSH Last administered on 02/07/17 08: 22; Start 02/05/17 at 21:00 Acetaminophen (Tylenol) 650 mg Q4H PRN PO TEMP > 100.4, headache Last administered on 02/07/17 02:50; Start 02/05/17 at 17:00 Ondansetron HCl (Zofran Inj) 4 mg Q6H PRN IVP NAUSEA OR VOMITING Last administered on 02/06/17 06:38; Start 02/05/17 at 17:00 Naloxone HCl (Narcan Inj) 0.4 mg UNSCH PRN IV SEE LABEL COMMENTS; Start at 17:00 Dextrose (D50w (Vial) Inj) 50 ml UNSCH PRN IV HYPOGLYCEMIA-SEE COMMENTS; Start 02/05/17 at 17:00 Glucagon (Glucagon Inj) 1 mg UNSCH PRN OTHER HYPOGLYCEMIA-SEE COMMENTS; Start 02/05/17 at 17:00 Insulin Aspart (NovoLOG SUPPLEMENTAL SCALE) 1 ACHS SLIDING SCALE SQ ; Start at 21:00 Ondansetron HCl (Zofran Inj) 4 mg ONCE ONCE IV Last administered on 02/05/17 17:31; Start 02/05/17 at 17:30; Stop 02/05/17 at 17:31; Status DC Morphine Sulfate 4 mg 4 mg ONCE ONCE IV PUSH Last administered on 02/05/17 17 :30; Start 02/05/17 at 17:30; Stop 02/05/17 at 17:31; Status DC Vancomycin HCl 1250 mg/Sodium Chloride 262.5 ml @ 262.5 mls/ hr Q12H IV ; Start 02/05/17 at 19:30; Status UNV Piperacillin Sod/ Tazobactam Sod 50 ml @ 100 mls/hr Q8H IV Last administered on 02/06/17 11:59; Start 02/05/17 at 20:00; Stop 02/06/17 at 12:15; Status DC Pharmacy Profile Note (Vancomycin Consult Pharmacy) 0 ml @ 0 mls/hr UNSCH OTHER ; Start 02/05/17 at 19:30 Baclofen (Lioresal) 10 mg TID PO Last administered on 02/07/17 08:13; Start at 09:00 Cholecalciferol (Vitamin D3) 1,000 units DAILY PO Last administered on 08:13; Start 02/06/17 at 09:00 Diltiazem HCl (Cardizem Cd) 240 mg DAILY PO Last administered on 02/07/17 08: 13; Start 02/06/17 at 09:00 Folic Acid (Folate) 1 mg DAILY PO Last administered on 02/07/17 08:13; Start 02/06/17 at 09:00 Gabapentin (Neurontin) 100 mg Q6HR PO Last administered on 02/07/17 05:47; Start 02/06/17 at 00:00 Potassium Chloride (KCl) 10 meq DAILY PO Last administered on 02/07/17 08:13; Start 02/06/17 at 09:00 Pravastatin Sodium (Pravachol) 20 mg HS PO Last administered on 02/06/17 21:55 ; Start 02/05/17 at 21:00 Pregabalin (Lyrica) 100 mg TID PO Last administered on 02/07/17 08:13; Start 02/06/17 at 09:00 Primidone (Mysoline) 50 mg TID PO Last administered on 02/07/17 08:13; Start 02/06/17 at 09:00 Spironolactone (Aldactone) 25 mg DAILY PO Last administered on 02/07/17 08:13 ; Start 02/06/17 at 09:00 Venlafaxine HCl (Effexor Xr) 300 mg DAILY PO Last administered on 02/07/17 08: 13; Start 02/06/17 at 09:00 Warfarin Sodium (Coumadin) 5 mg SuTuThSa@16 PO Last administered on 02/05/17 21:26; Start 02/05/17 at 19:30 Warfarin Sodium (Coumadin) 7.5 mg MoWeFr@16 PO Last administered on 02/06/17 16:02; Start 02/06/17 at 16:00 Oxycodone/ Acetaminophen (Percocet 7.5-325 Mg) 1 tab Q6H PRN PO PAIN GREATER THAN 5 Last administered on 02/06/17 21:56; Start 02/05/17 at 19:30 Morphine Sulfate 2 mg 2 mg Q3H PRN IV PUSH BREAKTHROUGH PAIN Last administered on 02/07/17 08:47; Start 02/05/17 at 19:30 Vancomycin HCl/ Sodium Chloride (Vancomycin Inj/ NS 500 ml Inj) 520 ml @ 250 mls/hr Q12H IV Last administered on 02/07/17 11:25; Start 02/05/17 at 22:00; Stop 02/07/17 at 11:42; Status DC Miscellaneous Information SPECIFIC LAB TO BE DRAWN:[facility]... ONCE ONCE .XX Last administered on 02/07/17 10:20; Start 02/07/17 at 09:45; Stop 02/07/17 at 09:46 ; Status DC Albuterol/ Ipratropium (Duoneb Neb) 1 ampule Q4HR NEB PRN NEB SOB/WHEEZING Last administered on 02/07/17 02:54; Start 02/07/17 at 02:45 Acetaminophen/ Butalbital/ Caffeine 1 tab 1 tab ONCE ONCE PO Last administered on 02/07/17 03:57; Start 02/07/17 at 03:30; Stop 02/07/17 at 03:32 ; Status DC Vancomycin HCl/ Sodium Chloride (Vancomycin Inj/ NS 500 ml Inj) 520 ml @ 250 mls/hr Q24H IV ; Start 02/08/17 at 11:00 Miscellaneous Information SPECIFIC LAB TO BE DRAWN:VANCOMYCIN TROUGH DATE TO... ONCE ONCE .XX ; Start 02/10/17 at 10:45; Stop 02/10/17 at 10:46 Past, Family & Social History Past Medical History Endocrine: REPORTS HX OF: Diabetes mellitus Respiratory: REPORTS HX OF: COPD Cardiovascular: REPORTS HX OF: Heart failure, Hypertension Past Surgical History Musculoskeletal: REPORTS HX OF: Other musculoskeletal srg (above-knee amputation left lower extremity) Review of Systems Cardiovascular: COMPLAINS OF: Hx CHF / chest pain, Hx hypertension, Uses O2 use at home Integumentary: COMPLAINS OF: Rash Neurological: COMPLAINS OF: Numbness/tingling, Difficulty with balance Wound Assessment Vascular Assessment R Dorsails Pedis: Doppler R Posterior Tibial: Doppler Sensation of Left Extremity: Diminished Sensation of Right Extremity: Diminished Extremities Evaluation: Edema Right Wound Information - Wound One Wound Location: multiple open areas of the right lower extremity Wound Type: Venous Disease Classification: FT- full thickness Photo Taken: No Exudate: Moderate Exudate Type: Serosanguineous Debridement: No Fibrin Amount: Mild Granulation Tissue Color: Pale / Alonso Granulation Tissue Texture: Spongy Exposed: No exposed bone, muscle, tendon Eschar: No Odor: No Periwound Appearance: FINDINGS: Maceration Dressing Notes: Optifoam Gentle AG Lab and Radiology Results Laboratory Laboratory Tests Test 02/05/17 02/06/17 15:46 07:38 White Blood Count 12.3 TH/MM3 12.6 TH/MM3 Red Blood Count 3.89 MIL/MM3 3.91 MIL/MM3 Hemoglobin 10.2 GM/DL 10.3 GM/DL Hematocrit 31.9 % 32.1 % Mean Corpuscular Volume 81.8 FL 82.2 FL Mean Corpuscular Hemoglobin 26.3 PG 26.4 PG Mean Corpuscular Hemoglobin 32.1 % 32.1 % Concent Red Cell Distribution Width 17.8 % 17.7 % Platelet Count 343 TH/MM3 320 TH/MM3 Mean Platelet Volume 8.0 FL 7.6 FL Neutrophils (%) (Auto) 71.0 % 73.5 % Lymphocytes (%) (Auto) 18.5 % 16.3 % Monocytes (%) (Auto) 6.0 % 6.9 % Eosinophils (%) (Auto) 3.0 % 2.7 % Basophils (%) (Auto) 1.5 % 0.6 % Neutrophils # (Auto) 8.7 TH/MM3 9.3 TH/MM3 Lymphocytes # (Auto) 2.3 TH/MM3 2.0 TH/MM3 Monocytes # (Auto) 0.7 TH/MM3 0.9 TH/MM3 Eosinophils # (Auto) 0.4 TH/MM3 0.3 TH/MM3 Basophils # (Auto) 0.2 TH/MM3 0.1 TH/MM3 CBC Comment DIFF FINAL DIFF FINAL Differential Comment Laboratory Tests Test 02/05/17 02/06/17 15:46 06:30 Sodium Level 135 MEQ/L 135 MEQ/L Potassium Level 4.0 MEQ/L 4.1 MEQ/L Chloride Level 99 MEQ/L 97 MEQ/L Carbon Dioxide Level 30.6 MEQ/L 32.8 MEQ/L Anion Gap 5 MEQ/L 5 MEQ/L Blood Urea Nitrogen 12 MG/DL 11 MG/DL Creatinine 0.78 MG/DL 0.87 MG/DL Estimat Glomerular Filtration 101 ML/MIN 89 ML/MIN Rate Random Glucose 123 MG/DL 141 MG/DL Lactic Acid Level 1.6 mmol/L Calcium Level 8.9 MG/DL 8.6 MG/DL Microbiology Date/Time Procedure Status Source Growth 02/05/17 15:45 Aerobic Blood Culture - Preliminary Resulted Blood Peripheral NO GROWTH IN 2 DAYS 02/05/17 15:45 Anaerobic Blood Culture - Preliminary Resulted Blood Peripheral NO GROWTH IN 2 DAYS 02/05/17 17:50 Aerobic Blood Culture - Preliminary Resulted Blood Peripheral NO GROWTH IN 2 DAYS 02/05/17 17:50 Anaerobic Blood Culture - Preliminary Resulted Blood Peripheral NO GROWTH IN 2 DAYS Radiology Last Impressions Chest X-Ray 02/07/17 0000 Signed Impressions: Service Date/Time: January 02:36 - CONCLUSION: Normal examination with a right-sided Luaskt-f-Bhwe catheter in good position. Rikki Corbin MD Tibia/Fibula X-Ray 02/05/17 0000 Signed Impressions: Service Date/Time: Sunday, February 05, 2017 15:19 - CONCLUSION: Diffuse subcutaneous edema and soft tissue swelling. No acute osseous abnormality is identified. Jorge Alberto Bazzi MD Foot X-Ray 02/05/17 0000 Signed Impressions: Service Date/Time: Sunday, February 05, 2017 15:13 - CONCLUSION: Severe relatively diffuse soft tissue swelling of the foot similar to the prior study. No acute osseous abnormality is identified. Jorge Alberto Bazzi MD Assessment/Plan Problem List: (1) Acquired lymphedema Status: Chronic (2) Obesity (BMI 30-39.9) Status: Chronic (3) Tobacco abuse Status: Chronic (4) COPD (chronic obstructive pulmonary disease) Status: Chronic (5) Diabetes mellitus type 2, uncontrolled Status: Chronic (6) Morbidly obese Status: Chronic Additional Plans & Procedures PLAN: Discussed with patient that he needs to keep his leg elevated at all times. Patient needs to limit his fluid intake. Patient needs to stop smoking. Discussed risk of amputation if he does not do the above. Ordered Optifoam Gentle AG dressings to right leg wounds with Manuelito bandage for compression. We' ll follow as needed. Patient needs to go to a lymphedema clinic upon discharge Problem Qualifiers (1) COPD (chronic obstructive pulmonary disease): Qualified Code: J44.9 - Chronic obstructive pulmonary disease, unspecified COPD type (2) Diabetes mellitus type 2, uncontrolled: Qualified Code: E11.51 - Uncontrolled type 2 diabetes mellitus with diabetic peripheral angiopathy without gangrene, with long-term current use of insulin (3) Morbidly obese: Qualified Code: E66.01 - Morbid obesity due to excess calories Florin Zheng DPM February 07, 2017 13:00
--- NOTE | 2017-02-07 14:43 | HHI.PR ---
Subjective Remarks Patient reports he is feeling okay today. He believes the redness is slightly improved. There is less weeping of the right lower extremity. He is afebrile. No chills. Objective Vitals Vital Signs Date Time Temp Pulse Resp B/P Pulse Ox O2 Delivery O2 Flow Rate FiO2 02/07/17 12:00 95.7 72 15 122/60 96 02/07/17 11:37 96 Nasal Cannula 3.00 02/07/17 08:00 95.2 79 15 139/72 96 02/07/17 04:00 96.5 80 20 126/75 99 02/07/17 02:10 97 Simple Mask 6.00 02/07/17 02:05 86 02/07/17 00:00 96.3 76 20 119/62 95 02/06/17 20:00 96.2 75 18 128/95 95 02/06/17 16:00 95.4 89 16 116/70 91 I/O 02/06/17 02/06/17 02/06/17 02/07/17 02/07/17 02/07/17 07:00 15:00 23:00 07:00 15:00 23:00 Intake Total 360 ml 240 ml 60 ml Output Total 200 ml 650 ml 400 ml Balance 160 ml -650 ml -160 ml 60 ml Intake Oral 360 ml 240 ml 60 ml Output Urine Total 200 ml 650 ml 400 ml # Voids 3 1 0 # Bowel Movements 0 0 0 Result Diagram: 02/06/17 0738 02/06/17 0630 Objective Remarks GENERAL: Morbidly obese male. Previous amputation of the left lower extremity CARDIOVASCULAR: Normal rate and regular rhythm without murmurs, gallops, or rubs. RESPIRATORY: Good respiratory efforts. Breath sounds equal and clear to auscultation bilaterally. GASTROINTESTINAL: Abdomen soft, non-tender, non-distended. Normal active bowel sounds MUSCULOSKELETAL: Right lower extremity from below the knee down to the top of the right foot, skin is macerated and sloughing off with some drainage. The toes are sausagelike. NEURO: Alert & Oriented x4 to person, place, time, situation. PSYCH: Appropriate mood and affect. A/P Assessment and Plan 61-year-old male with a past medical history of PAD, HTN, DM, HLD, CAD, CVA who presented for a right leg infection Right lower extremity acute cellulitis overlying chronic venous stasis. Sepsis. Failed outpatient antibiotic therapy. On admission Heart rate 96. Respiratory rate 22. WBC 12.3. Afebrile. Lactic acid 1.6. Right lower extremity X-rays with edema and soft tissue swelling. Wound culture from 01/31 was polymicrobial with Pseudomonas, Proteus mirabilis, and MSSA. - Infectious disease following. Zosyn discontinued. Continue vancomycin - Follow up blood cultures - Agree with ID, patient will need follow-up with wound care and venous stasis clinic. Discussed with ID, plan to discharge on home IV antibiotics tomorrow. - Appreciate wound care physician, Dr. Zheng recommendations. Patient will need follow-up by the lymphedema clinic. [facility] I advised them to follow up on that after discharge. Diabetes mellitus: Monitor Accu-Cheks. Cover with SSI. History of DVT on chronic anticoagulation: On Coumadin. Follow INR. Continue chronic medications per the med rec as indicated. Discharge Planning Probable discharge tomorrow with home health and IV antibiotics if he continues to improve. Joyce Gonzalez MD February 07, 2017 14:43
[2017-02-07] MEDS: WARFARIN SOD 5 MG TAB PO SCH (18:04)
[2017-02-07] MEDS: PRAVASTATIN SOD 20 MG TAB PO SCH (20:38)
[2017-02-07] MEDS: oxyCODONE/ACETAMINOPHEN 7.5 MG/325 MG TAB PO PRN (20:38)
[2017-02-08] VITALS: BP 124/59; PULSE 88; RESP 20; TEMP 96.2; O2SAT 92
[2017-02-08] MEDS: GABAPENTIN 100 MG CAP PO SCH ×5 (00:22→23:37)
[2017-02-08 04:00] VITALS: BP 114/56; PULSE 84; RESP 20; TEMP 97.1; O2SAT 94
[2017-02-08 06:01] LABS: HEMATOCRIT 28.1 % (39.0-51.0); MEAN CELL VOLUME 83.3 FL (80.0-100.0); MEAN CORPUSCULAR HEMOGLOBIN 26.3 PG (27.0-34.0); MEAN CORPUSCULAR HGB CONC 31.6 % (32.0-36.0); PLATELET COUNT 270 TH/MM3 (150-450); RED BLOOD COUNT 3.37 MIL/MM3 (4.50-5.90); RED CELL DISTRIBUTION WIDTH 17.3 % (11.6-17.2); REVIEW FLAG FINAL; WHITE BLOOD COUNT 9.8 TH/MM3 (4.0-11.0)
[2017-02-08] MEDS: oxyCODONE/ACETAMINOPHEN 7.5 MG/325 MG TAB PO PRN ×2 (06:08→17:03)
[2017-02-08] MEDS: INSULIN ASPART SUPPLEMENTAL SCALE SQ SCH ×4 (06:10→21:00)
[2017-02-08 06:24] LABS: BICARBONATE 33.6 MEQ/L (21.0-32.0); POTASSIUM 4.2 MEQ/L (3.5-5.1)
[2017-02-08 08:28] VITALS: BP 142/63; PULSE 87; RESP 18; TEMP 97
[2017-02-08] MEDS: BACLOFEN 10 MG TAB PO SCH ×3 (09:00→17:04)
[2017-02-08] MEDS: POTASSIUM CHLORIDE 10 MEQ CAP PO SCH (09:03)
[2017-02-08] MEDS: FOLIC ACID 1 MG TAB PO SCH (09:03)
[2017-02-08] MEDS: SODIUM CHLORIDE 0.9% FLUSH 10 ML FLUSH IV FLUSH SCH ×2 (09:03→20:41)
[2017-02-08] MEDS: CHOLECALCIFEROL (VIT D3) 1000 UNIT TAB PO SCH (09:03)
[2017-02-08] MEDS: SPIRONOLACTONE 25 MG TAB PO SCH (09:03)
[2017-02-08] MEDS: VENLAFAXINE HCL XR 75 MG CAP PO SCH (09:03)
[2017-02-08] MEDS: PREGABALIN 100 MG CAP PO SCH ×3 (09:03→17:03)
[2017-02-08] MEDS: PRIMIDONE 50 MG TAB PO SCH ×3 (09:03→17:04)
[2017-02-08] MEDS: DILTIAZEM-CD 240 MG CAP ER PO SCH (09:03)
[2017-02-08] MEDS: MORPHINE SULFATE 4 MG/ML INJ IV PUSH PRN ×2 (09:31→20:39)
[2017-02-08] MEDS: VANCOMYCIN INJ 2,000 MG in SODIUM CHLORID 0.9% 500 ML INJ 500 ML IV SCH (11:00)
[2017-02-08 12:00] VITALS: BP 124/66; PULSE 86; RESP 18; TEMP 96.5; O2SAT 90
--- NOTE | 2017-02-08 13:30 | HHI.FF ---
Face to Face Verification Diagnosis: (1) Cellulitis (2) Venous stasis dermatitis of right lower extremity (3) Acquired lymphedema (4) Morbidly obese (5) Wound infection Physical Therapy Order: Evaluate and Treat, Improve ambulation, Strength and gait training Home Health Nursing Order: Medical education Wound care and dressing changes (Optifoam Gentle AG dressings to right leg wounds with Manuelito bandage for compression.) I have seen patient Jorge Alberto Contreras on 02/08/17. My clinical findings support the need for the requested home health care services because: Ltd mobility - disease progression Limited ability to care for self Need for psychosocial assistance Infection w/ risk of complications I certify that my clinical findings support that this patient is homebound because: Need for psychosocial assistance Joyce Gonzalez MD February 08, 2017 13:30
--- NOTE | 2017-02-08 13:35 | HHI.PR ---
Subjective Remarks Patient reports that he is doing OK. 09/19 blood cultures pos for gram pos cocci. No fevers or chills. Leg erythema and pain improved. Objective Vitals Vital Signs Date Time Temp Pulse Resp B/P Pulse Ox O2 Delivery O2 Flow Rate FiO2 02/08/17 13:26 02/08/17 12:00 96.5 86 18 124/66 90 02/08/17 10:04 02/08/17 08:28 97.0 87 18 142/63 02/08/17 07:36 Nasal Cannula 2.00 02/08/17 04:10 99 Nasal Cannula 2.00 02/08/17 04:00 97.1 84 20 114/56 94 02/08/17 00:00 96.2 88 20 124/59 92 02/07/17 20:41 98 Nasal Cannula 2.00 02/07/17 20:00 97.0 85 20 116/88 93 02/07/17 17:40 96.1 78 16 120/58 96 I/O 02/07/17 02/07/17 02/07/17 02/08/17 02/08/17 02/08/17 07:00 15:00 23:00 07:00 15:00 23:00 Intake Total 60 ml 480 ml 240 ml Output Total 325 ml 400 ml Balance 60 ml 155 ml -160 ml Intake Oral 60 ml 480 ml 240 ml Output Urine Total 325 ml 400 ml # Voids 0 0 1 # Bowel Movements 0 0 0 Result Diagram: 02/08/17 0540 02/08/17 0540 Objective Remarks GENERAL: Morbidly obese male. Previous amputation of the left lower extremity CARDIOVASCULAR: Normal rate and regular rhythm without murmurs, gallops, or rubs. RESPIRATORY: Good respiratory efforts. Breath sounds equal and clear to auscultation bilaterally. GASTROINTESTINAL: Abdomen soft, non-tender, non-distended. Normal active bowel sounds MUSCULOSKELETAL: Right lower extremity from below the knee down to the top of the right foot, skin is macerated and sloughing off with some drainage. The toes are sausagelike. NEURO: Alert & Oriented x4 to person, place, time, situation. PSYCH: Appropriate mood and affect. A/P Assessment and Plan 61-year-old male with a past medical history of PAD, HTN, DM, HLD, CAD, CVA who presented for a right leg infection Right lower extremity acute cellulitis overlying chronic venous stasis. Sepsis. Failed outpatient antibiotic therapy. On admission Heart rate 96. Respiratory rate 22. WBC 12.3. Afebrile. Lactic acid 1.6. Right lower extremity X-rays with edema and soft tissue swelling. Wound culture from 01/31 was polymicrobial with Pseudomonas, Proteus mirabilis, and MSSA. - Infectious disease following. Zosyn discontinued. Continue vancomycin - Follow up blood cultures. 09/19 so far pos. - Agree with ID, patient will need follow-up with wound care and venous stasis clinic. Discussed with ID, continue to follow cultures. - Appreciate wound care physician, Dr. Zheng recommendations. Patient will need follow-up by the lymphedema clinic. He [facility] I advised them to follow up on that after discharge. Diabetes mellitus: Monitor Accu-Cheks. Cover with SSI. History of DVT on chronic anticoagulation: On Coumadin. Follow INR. Continue chronic medications per the med rec as indicated. Discharge Planning Patient staying for more IV antibiotics. Blood cultures positive. Continue to follow cultures. Joyce Gonzalez MD February 08, 2017 13:35
--- NOTE | 2017-02-08 13:37 | HHI.IDPN ---
Subjective Subjective Remarks not feeling well afebrile blood clx growing GPC Antibiotics vancomycin Allergies: Coded Allergies: Betadine (Verified Allergy, Severe, 02/05/17) Contrast Media (Verified Allergy, Severe, SHOCK, 02/05/17) Iodine (Verified Allergy, Severe, 02/05/17) MRI PRECAUTION (Verified Allergy, Severe, ANEURSYM CLIPPING, 02/05/17) Objective . Vital Signs Date Time Temp Pulse Resp B/P Pulse Ox O2 Delivery O2 Flow Rate FiO2 02/08/17 13:26 02/08/17 12:00 96.5 86 18 124/66 90 02/08/17 10:04 02/08/17 08:28 97.0 87 18 142/63 02/08/17 07:36 Nasal Cannula 2.00 02/08/17 04:10 99 Nasal Cannula 2.00 02/08/17 04:00 97.1 84 20 114/56 94 02/08/17 00:00 96.2 88 20 124/59 92 02/07/17 20:41 98 Nasal Cannula 2.00 02/07/17 20:00 97.0 85 20 116/88 93 02/07/17 17:40 96.1 78 16 120/58 96 02/07/17 02/07/17 02/08/17 15:00 23:00 07:00 Intake Total 480 ml 240 ml Output Total 325 ml 400 ml Balance 155 ml -160 ml Intake Oral 480 ml 240 ml Output Urine Total 325 ml 400 ml # Voids 0 1 # Bowel Movements 0 0 . Laboratory Tests Test 02/08/17 05:40 White Blood Count 9.8 TH/MM3 Red Blood Count 3.37 MIL/MM3 Hemoglobin 8.9 GM/DL Hematocrit 28.1 % Mean Corpuscular Volume 83.3 FL Mean Corpuscular Hemoglobin 26.3 PG Mean Corpuscular Hemoglobin 31.6 % Concent Red Cell Distribution Width 17.3 % Platelet Count 270 TH/MM3 Mean Platelet Volume 7.7 FL Laboratory Tests Test 02/08/17 05:40 Sodium Level 137 MEQ/L Potassium Level 4.2 MEQ/L Chloride Level 100 MEQ/L Carbon Dioxide Level 33.6 MEQ/L Anion Gap 3 MEQ/L Blood Urea Nitrogen 11 MG/DL Creatinine 0.65 MG/DL Estimat Glomerular Filtration 124 ML/MIN Rate Random Glucose 151 MG/DL Calcium Level 8.0 MG/DL Microbiology Date/Time Procedure Status Source Growth 02/05/17 15:45 Aerobic Blood Culture - Preliminary Resulted Blood Peripheral NO GROWTH IN 3 DAYS 02/05/17 15:45 Anaerobic Blood Culture - Preliminary Resulted Gram Positive Cocci 02/05/17 17:50 Aerobic Blood Culture - Preliminary Resulted Blood Peripheral NO GROWTH IN 3 DAYS 02/05/17 17:50 Anaerobic Blood Culture - Preliminary Resulted Blood Peripheral NO GROWTH IN 3 DAYS Imaging Last Impressions Chest X-Ray 02/07/17 0000 Signed Impressions: Service Date/Time: January 02:36 - CONCLUSION: Normal examination with a right-sided Ffyxak-[id number]-Pkfp catheter in good position. Rikki Corbin MD Tibia/Fibula X-Ray 02/05/17 0000 Signed Impressions: Service Date/Time: Sunday, February 05, 2017 15:19 - CONCLUSION: Diffuse subcutaneous edema and soft tissue swelling. No acute osseous abnormality is identified. Jorge Alberto Bazzi MD Foot X-Ray 02/05/17 0000 Signed Impressions: Service Date/Time: Sunday, February 05, 2017 15:13 - CONCLUSION: Severe relatively diffuse soft tissue swelling of the foot similar to the prior study. No acute osseous abnormality is identified. Jorge Alberto Bazzi MD Physical Exam CONSTITUTIONAL/GENERAL: This is an morbidly obese patient, in no apparent distress. PORT in place R chest - no skin changes around SKIN: No jaundice, rashes, or lesions. Skin temperature appropriate. Not diaphoretic. HEAD: Atraumatic. Normocephalic. EYES: Pupils equal and round and reactive. Extraocular motions intact. No scleral icterus. No injection or drainage. Fundi not examined. ENT: Hearing grossly normal. Nose without bleeding or purulent drainage. Oral mucosae dry without visible erythema, exudates, masses, or lesions. Poor dentition CARDIOVASCULAR: Regular rate and rhythm without murmurs, gallops, or rubs. No JVD. Peripheral pulses symmetric. RESPIRATORY/CHEST: Symmetric, unlabored respirations. Clear to auscultation. Breath sounds equal bilaterally. No wheezes, rales, or rhonchi. GASTROINTESTINAL: Abdomen soft, obese non-tender, moderately distended. No hepato-splenomegaly, or palpable masses. No guarding. Bowel sounds present. GENITOURINARY: Without palpable bladder distension. MUSCULOSKELETAL: Extremities without clubbing, cyanosis, L AKA RLE with dressing in place, visualised skin less edematous and less erythematous warm to touch less tender to touch NEUROLOGICAL: Awake and alert. 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
[2017-02-08] MEDS: WARFARIN SOD 7.5 MG TAB PO SCH (16:00)
[2017-02-08 16:17] VITALS: BP 134/63; PULSE 85; RESP 18; TEMP 96.4; O2SAT 94
[2017-02-08 20:30] VITALS: BP 137/68; PULSE 73; RESP 21; TEMP 97.9; O2SAT 96
[2017-02-08] MEDS: PRAVASTATIN SOD 20 MG TAB PO SCH (20:37)
[2017-02-09 00:30] VITALS: BP 130/62; PULSE 75; RESP 20; TEMP 98.8; O2SAT 95
[2017-02-09] MEDS: oxyCODONE/ACETAMINOPHEN 7.5 MG/325 MG TAB PO PRN ×3 (03:35→17:46)
[2017-02-09 05:00] VITALS: BP 149/70; PULSE 88; RESP 24; TEMP 97.3; O2SAT 94
[2017-02-09] MEDS: GABAPENTIN 100 MG CAP PO SCH ×4 (06:09→23:31)
[2017-02-09] MEDS: MORPHINE SULFATE 4 MG/ML INJ IV PUSH PRN ×4 (06:10→19:55)
[2017-02-09] MEDS: INSULIN ASPART SUPPLEMENTAL SCALE SQ SCH ×4 (07:00→21:00)
[2017-02-09 07:04] LABS: HEMATOCRIT 29.5 % (39.0-51.0); MEAN CELL VOLUME 82.8 FL (80.0-100.0); MEAN CORPUSCULAR HEMOGLOBIN 26.2 PG (27.0-34.0); MEAN CORPUSCULAR HGB CONC 31.7 % (32.0-36.0); PLATELET COUNT 288 TH/MM3 (150-450); RED BLOOD COUNT 3.56 MIL/MM3 (4.50-5.90); RED CELL DISTRIBUTION WIDTH 17.6 % (11.6-17.2); REVIEW FLAG FINAL; WHITE BLOOD COUNT 10.2 TH/MM3 (4.0-11.0)
[2017-02-09 07:50] LABS: BICARBONATE 33.7 MEQ/L (21.0-32.0); POTASSIUM 4.1 MEQ/L (3.5-5.1)
[2017-02-09 08:49] VITALS: BP 179/106; PULSE 97; RESP 20; TEMP 96.4; O2SAT 93
[2017-02-09] MEDS: POTASSIUM CHLORIDE 10 MEQ CAP PO SCH (09:38)
[2017-02-09] MEDS: SPIRONOLACTONE 25 MG TAB PO SCH (09:38)
[2017-02-09] MEDS: VENLAFAXINE HCL XR 75 MG CAP PO SCH (09:38)
[2017-02-09] MEDS: BACLOFEN 10 MG TAB PO SCH ×3 (09:38→17:45)
[2017-02-09] MEDS: PRIMIDONE 50 MG TAB PO SCH ×3 (09:38→17:45)
[2017-02-09] MEDS: FOLIC ACID 1 MG TAB PO SCH (09:38)
[2017-02-09] MEDS: PREGABALIN 100 MG CAP PO SCH ×3 (09:38→17:45)
[2017-02-09] MEDS: DILTIAZEM-CD 240 MG CAP ER PO SCH (09:38)
[2017-02-09] MEDS: CHOLECALCIFEROL (VIT D3) 1000 UNIT TAB PO SCH (09:38)
[2017-02-09] MEDS: SODIUM CHLORIDE 0.9% FLUSH 10 ML FLUSH IV FLUSH SCH ×2 (09:40→19:58)
[2017-02-09] MEDS: VANCOMYCIN INJ 2,000 MG in SODIUM CHLORID 0.9% 500 ML INJ 500 ML IV SCH (11:33)
[2017-02-09 12:08] VITALS: BP 119/59; PULSE 101; RESP 20; TEMP 97.8; O2SAT 92
--- NOTE | 2017-02-09 13:19 | HHI.PR ---
Subjective Remarks Patient reports is feeling okay today. No fevers or chills. He reports significant pain with dressing changes. Reports that right lower extremity erythema has significantly improved. There is still some drainage in the whole leg is painful. Objective Vitals Vital Signs Date Time Temp Pulse Resp B/P Pulse Ox O2 Delivery O2 Flow Rate FiO2 02/09/17 12:08 97.8 101 20 119/59 92 02/09/17 08:49 96.4 97 20 179/106 93 02/09/17 08:15 Nasal Cannula 2.00 02/09/17 05:00 97.3 88 24 149/70 94 02/09/17 00:30 98.8 75 20 130/62 95 02/08/17 21:30 Nasal Cannula 2.00 02/08/17 20:30 97.9 73 21 137/68 96 02/08/17 17:32 02/08/17 16:17 96.4 85 18 134/63 94 02/08/17 13:26 I/O 02/08/17 02/08/17 02/08/17 02/09/17 02/09/17 02/09/17 07:00 15:00 23:00 07:00 15:00 23:00 Intake Total 240 ml 360 ml 1000 ml 950 ml Output Total 400 ml 400 ml 500 ml 1500 ml 250 ml Balance -160 ml -40 ml 500 ml -550 ml -250 ml Intake Oral 240 ml 360 ml 1000 ml 950 ml Output Urine Total 400 ml 400 ml 500 ml 1500 ml 250 ml # Voids 1 # Bowel Movements 0 1 0 0 Result Diagram: 02/09/1762902/09/17629 Objective Remarks GENERAL: Morbidly obese male. Previous amputation of the left lower extremity CARDIOVASCULAR: Normal rate and regular rhythm without murmurs, gallops, or rubs. RESPIRATORY: Good respiratory efforts. Breath sounds equal and clear to auscultation bilaterally. GASTROINTESTINAL: Abdomen soft, non-tender, non-distended. Normal active bowel sounds MUSCULOSKELETAL: Right lower extremity from below the knee down to the top of the right foot is wrapped with a pressure dressing. The toes are sausagelike. NEURO: Alert & Oriented x4 to person, place, time, situation. PSYCH: Appropriate mood and affect. A/P Assessment and Plan 61-year-old male with a past medical history of PAD, HTN, DM, HLD, CAD, CVA who presented for a right leg infection Right lower extremity acute cellulitis overlying chronic venous stasis. Sepsis. Failed outpatient antibiotic therapy. On admission Heart rate 96. Respiratory rate 22. WBC 12.3. Afebrile. Lactic acid 1.6. Right lower extremity X-rays with edema and soft tissue swelling. Wound culture from 01/31 was polymicrobial with Pseudomonas, Proteus mirabilis, and MSSA. - Infectious disease following. Zosyn discontinued. Continue vancomycin - Follow up blood cultures. 09/19 so far pos. repeat blood cultures obtained. - Agree with ID, patient will need follow-up with wound care and venous stasis clinic. - Appreciate wound care physician, Dr. Zheng recommendations. Patient will need follow-up by the lymphedema clinic. [facility] I advised him to follow up on that after discharge. Diabetes mellitus: Monitor Accu-Cheks. Cover with SSI. History of DVT on chronic anticoagulation: On Coumadin. Follow INR. Continue chronic medications per the med rec as indicated. Discharge Planning Patient staying for more IV antibiotics. Blood cultures positive. Continue to follow cultures. Joyce Gonzalez MD February 09, 2017 13:19
[2017-02-09] MEDS: WARFARIN SOD 5 MG TAB PO SCH (15:54)
[2017-02-09 16:09] VITALS: BP 120/56; PULSE 77; RESP 19; TEMP 96.2; O2SAT 92
[2017-02-09] MEDS: PRAVASTATIN SOD 20 MG TAB PO SCH (19:54)
[2017-02-09 20:00] VITALS: BP_SYST 98; PULSE 74; RESP 24; TEMP 95.6; O2SAT 98
[2017-02-10] VITALS: BP 121/68; PULSE 86; RESP 28; TEMP 98.7; O2SAT 92
[2017-02-10] MEDS: oxyCODONE/ACETAMINOPHEN 7.5 MG/325 MG TAB PO PRN ×4 (01:39→21:33)
[2017-02-10] MEDS: MORPHINE SULFATE 4 MG/ML INJ IV PUSH PRN ×3 (02:40→11:50)
[2017-02-10 04:00] VITALS: BP 120/57; PULSE 72; RESP 26; TEMP 96.2; O2SAT 90
[2017-02-10] MEDS: GABAPENTIN 100 MG CAP PO SCH ×3 (06:05→17:39)
[2017-02-10] MEDS: INSULIN ASPART SUPPLEMENTAL SCALE SQ SCH ×4 (06:23→21:00)
[2017-02-10 06:38] LABS: HEMATOCRIT 30.3 % (39.0-51.0); MEAN CELL VOLUME 83.7 FL (80.0-100.0); MEAN CORPUSCULAR HEMOGLOBIN 25.9 PG (27.0-34.0); PLATELET COUNT 288 TH/MM3 (150-450); RED BLOOD COUNT 3.62 MIL/MM3 (4.50-5.90); RED CELL DISTRIBUTION WIDTH 17.3 % (11.6-17.2); REVIEW FLAG FINAL; WHITE BLOOD COUNT 11.2 TH/MM3 (4.0-11.0)
[2017-02-10 06:42] LABS: INTERNATIONAL NORMALIZED RATIO 4.7 RATIO; PROTHROMBIN TIME - PATIENT 55.4 SEC (9.8-11.6)
[2017-02-10 07:04] LABS: BICARBONATE 32.2 MEQ/L (21.0-32.0); POTASSIUM 4.2 MEQ/L (3.5-5.1)
[2017-02-10 08:07] VITALS: BP 150/70; PULSE 73; RESP 19; TEMP 95.8; O2SAT 93
[2017-02-10] MEDS: DILTIAZEM-CD 240 MG CAP ER PO SCH (08:41)
[2017-02-10] MEDS: BACLOFEN 10 MG TAB PO SCH ×3 (08:42→17:39)
[2017-02-10] MEDS: SODIUM CHLORIDE 0.9% FLUSH 10 ML FLUSH IV FLUSH SCH ×2 (08:42→21:33)
[2017-02-10] MEDS: VENLAFAXINE HCL XR 75 MG CAP PO SCH (08:42)
[2017-02-10] MEDS: PRIMIDONE 50 MG TAB PO SCH ×3 (08:42→17:39)
[2017-02-10] MEDS: CHOLECALCIFEROL (VIT D3) 1000 UNIT TAB PO SCH (08:42)
[2017-02-10] MEDS: POTASSIUM CHLORIDE 10 MEQ CAP PO SCH (08:42)
[2017-02-10] MEDS: SPIRONOLACTONE 25 MG TAB PO SCH (08:42)
[2017-02-10] MEDS: FOLIC ACID 1 MG TAB PO SCH (08:42)
[2017-02-10] MEDS: PREGABALIN 100 MG CAP PO SCH ×3 (08:42→17:39)
[2017-02-10] MEDS ORDERED: PHARMACY ORDERED LAB ONE (10:45)
--- NOTE | 2017-02-10 11:38 | HHI.PR ---
Subjective Remarks No acute events overnight. Afebrile, vital signs stable. Patient reports lower extremity pain, worse with dressing changes partially relieved by morphine. Patient denies nausea/vomiting/diarrhea. Denies constipation. INR today was 4.7, goal 2.5. Objective Vitals Vital Signs Date Time Temp Pulse Resp B/P Pulse Ox O2 Delivery O2 Flow Rate FiO2 02/10/17 08:55 93 Nasal Cannula 3.00 02/10/17 08:07 95.8 73 19 150/70 93 02/10/17 04:24 90 Nasal Cannula 3.00 02/10/17 04:00 96.2 72 26 120/57 90 02/10/17 03:00 Nasal Cannula 3.00 02/10/17 00:00 98.7 86 28 121/68 92 02/09/17 20:00 95.6 74 24 98/ 98 02/09/17 16:09 96.2 77 19 120/56 92 02/09/17 12:08 97.8 101 20 119/59 92 I/O 02/09/17 02/09/17 02/09/17 02/10/17 02/10/17 02/10/17 07:00 15:00 23:00 07:00 15:00 23:00 Intake Total 950 ml Output Total 1500 ml 250 ml 550 ml 200 ml Balance -550 ml -250 ml -550 ml -200 ml Intake Oral 950 ml Output Urine Total 1500 ml 250 ml 550 ml 200 ml # Bowel Movements 0 Result Diagram: 02/10/1761902/10/17 0620 Objective Remarks GENERAL: Morbidly obese male. Previous amputation of the left lower extremity CARDIOVASCULAR: Normal rate and regular rhythm without murmurs, gallops, or rubs. RESPIRATORY: Good respiratory efforts. Breath sounds equal and clear to auscultation bilaterally. GASTROINTESTINAL: Abdomen soft, non-tender, non-distended. Normal active bowel sounds MUSCULOSKELETAL: Right lower extremity from below the knee down to the top of the right foot is wrapped with a pressure dressing. The toes are sausagelike. NEURO: Alert & Oriented x4 to person, place, time, situation. PSYCH: Appropriate mood and affect. A/P Assessment and Plan 61-year-old male with a past medical history of PAD, HTN, DM, HLD, CAD, CVA who presented for a right leg infection Right lower extremity acute cellulitis overlying chronic venous stasis. Sepsis. Failed outpatient antibiotic therapy. On admission Heart rate 96. Respiratory rate 22. WBC 12.3. Afebrile. Lactic acid 1.6. Right lower extremity X-rays with edema and soft tissue swelling. Wound culture from 01/31 was polymicrobial with Pseudomonas, Proteus mirabilis, and MSSA. - Infectious disease following. Zosyn discontinued. Continue vancomycin - Follow up blood cultures. 09/19 so far pos. repeat blood cultures obtained, no growth 1 day. - Agree with ID, patient will need follow-up with wound care and venous stasis clinic. - Appreciate wound care physician, Dr. Zheng recommendations. Patient will need follow-up by the lymphedema clinic. He tells [facility] I advised him to follow up on that after discharge. Diabetes mellitus: Monitor Accu-Cheks. Cover with SSI. History of DVT on chronic anticoagulation: On Coumadin. INR today 4.7. Currently holding Coumadin. Repeat INR in the morning. Continue chronic medications per the med rec as indicated. Discharge Planning Patient staying for more IV antibiotics. Blood cultures positive. Continue to follow cultures. Samantha Raygoza MD R3 February 10, 2017 11:37
[2017-02-10] MEDS: VANCOMYCIN INJ 2,000 MG in SODIUM CHLORID 0.9% 500 ML INJ 500 ML IV SCH (11:51)
[2017-02-10 11:57] VITALS: BP 103/57; PULSE 93; RESP 20; TEMP 96.5; O2SAT 92
[2017-02-10 16:21] VITALS: BP 118/64; PULSE 77; RESP 20; TEMP 96.2; O2SAT 97
[2017-02-10 20:00] VITALS: BP 142/69; PULSE 87; RESP 24; TEMP 96.2; O2SAT 94
[2017-02-10] MEDS: PRAVASTATIN SOD 20 MG TAB PO SCH (21:33)
[2017-02-11] VITALS (7 sets, daily range): BP systolic 111–149; BP diastolic 45–74; PULSE 66–90; RESP 18–20; TEMP 95.2–96.8; O2SAT 60–97
[2017-02-11] MEDS: GABAPENTIN 100 MG CAP PO SCH ×4 (01:10→17:52)
[2017-02-11] MEDS: MORPHINE SULFATE 4 MG/ML INJ IV PUSH PRN ×3 (01:14→16:35)
[2017-02-11] MEDS: oxyCODONE/ACETAMINOPHEN 7.5 MG/325 MG TAB PO PRN ×3 (03:28→16:02)
[2017-02-11] MEDS: ONDANSETRON HCL 4 MG/2 ML VIAL IVP PRN (06:11)
[2017-02-11] MEDS: INSULIN ASPART SUPPLEMENTAL SCALE SQ SCH ×4 (07:00→20:19)
[2017-02-11] MEDS: PREGABALIN 100 MG CAP PO SCH ×3 (08:39→17:51)
[2017-02-11] MEDS: CHOLECALCIFEROL (VIT D3) 1000 UNIT TAB PO SCH (08:39)
[2017-02-11] MEDS: POTASSIUM CHLORIDE 10 MEQ CAP PO SCH (08:39)
[2017-02-11] MEDS: BACLOFEN 10 MG TAB PO SCH ×3 (08:39→17:51)
[2017-02-11] MEDS: VENLAFAXINE HCL XR 75 MG CAP PO SCH (08:39)
[2017-02-11] MEDS: DILTIAZEM-CD 240 MG CAP ER PO SCH (08:39)
[2017-02-11] MEDS: PRIMIDONE 50 MG TAB PO SCH ×3 (08:39→17:52)
[2017-02-11] MEDS: SODIUM CHLORIDE 0.9% FLUSH 10 ML FLUSH IV FLUSH SCH ×2 (08:39→20:19)
[2017-02-11] MEDS: SPIRONOLACTONE 25 MG TAB PO SCH (08:39)
[2017-02-11] MEDS: FOLIC ACID 1 MG TAB PO SCH (08:39)
[2017-02-11 08:46] LABS: AUTOMATED NEUTROPHIL # 7.4 TH/MM3 (1.8-7.7); BASOPHIL # 0.1 TH/MM3 (0-0.2); BASOPHIL % 0.8 % (0.0-2.0); EOSINOPHIL # 0.5 TH/MM3 (0-0.4); EOSINOPHIL % 4.3 % (0.0-4.0); HEMATOCRIT 30.6 % (39.0-51.0); HEMO FLAGS DIFF FINAL; LYMPHOCYTE # 2.5 TH/MM3 (1.0-4.8); MEAN CELL VOLUME 83.7 FL (80.0-100.0); MEAN CORPUSCULAR HEMOGLOBIN 26.3 PG (27.0-34.0); MEAN CORPUSCULAR HGB CONC 31.4 % (32.0-36.0); NEUT % 64.9 % (16.0-70.0); PLATELET COUNT 292 TH/MM3 (150-450); RED BLOOD COUNT 3.65 MIL/MM3 (4.50-5.90); RED CELL DISTRIBUTION WIDTH 17.9 % (11.6-17.2); WHITE BLOOD COUNT 11.4 TH/MM3 (4.0-11.0)
[2017-02-11 09:09] LABS: BICARBONATE 29.1 MEQ/L (21.0-32.0); POTASSIUM 3.9 MEQ/L (3.5-5.1)
[2017-02-11 10:11] LABS: PROTHROMBIN TIME - PATIENT 34.5 SEC (9.8-11.6)
[2017-02-11] MEDS: VANCOMYCIN INJ 1,800 MG in SODIUM CHLORID 0.9% 500 ML INJ 500 ML IV SCH (12:40)
--- NOTE | 2017-02-11 12:48 | HHI.PR ---
Subjective Remarks Follow-up for cellulitis Patient stated that he continues have pain but that's been the same. Patient had his wound dressing change in the morning today. He gets it changed daily. Patient stated that he wants to go home tomorrow. He remains afebrile he has no other complaints. Objective Vitals Vital Signs Date Time Temp Pulse Resp B/P Pulse Ox O2 Delivery O2 Flow Rate FiO2 02/11/17 08:52 Nasal Cannula 3.00 02/11/17 08:44 96.7 90 18 149/74 94 02/11/17 08:42 96.7 90 18 149/74 94 02/11/17 04:00 96.4 66 20 111/67 97 02/11/17 00:58 Nasal Cannula 3.00 02/11/17 00:00 96.8 84 18 111/45 96 02/10/17 20:00 96.2 87 24 142/69 94 02/10/17 16:21 96.2 77 20 118/64 97 I/O 02/10/17 02/10/17 02/10/17 02/11/17 02/11/17 02/11/17 07:00 15:00 23:00 07:00 15:00 23:00 Output Total 200 ml 600 ml 500 ml Balance -200 ml -600 ml -500 ml Output Urine Total 200 ml 600 ml 500 ml # Voids 2 # Bowel Movements 1 Result Diagram: 02/11/17 0645 02/11/17 0645 Objective Remarks GENERAL: Morbidly obese male. Previous amputation of the left lower extremity CARDIOVASCULAR: Normal rate and regular rhythm without murmurs, gallops, or rubs. RESPIRATORY: Good respiratory efforts. Breath sounds equal and clear to auscultation bilaterally. GASTROINTESTINAL: Abdomen soft, non-tender, non-distended. Normal active bowel sounds MUSCULOSKELETAL: Right lower extremity from below the knee down to the top of the right foot is wrapped with a pressure dressing. Positive for edema. NEURO: Alert & Oriented x4 to person, place, time, situation. PSYCH: Appropriate mood and affect. Medications and IVs Current Medications Gentamicin Sulfate/Sodium Chloride (Gentamicin Inj/ NS Inj) 108.25 ml @ 100 mls / hr ONCE ONCE IV Last administered on 02/05/17t 17:31; Start 02/05/17 at 15: 15; Stop 02/05/17 at 16:19; Status DC Sodium Chloride (NS Flush) 2 ml UNSCH PRN IV FLUSH FLUSH AFTER USING IV ACCESS Last administered on 02/07/17 18:05; Start 02/05/17 at 17:00 Sodium Chloride (NS Flush) 2 ml BID IV FLUSH Last administered on 02/11/17 08: 39; Start 02/05/17 at 21:00 Acetaminophen (Tylenol) 650 mg Q4H PRN PO TEMP > 100.4, headache Last administered on 02/07/17 02:50; Start 02/05/17 at 17:00 Ondansetron HCl (Zofran Inj) 4 mg Q6H PRN IVP NAUSEA OR VOMITING Last administered on 02/11/17 06:11; Start 02/05/17 at 17:00 Naloxone HCl (Narcan Inj) 0.4 mg UNSCH PRN IV SEE LABEL COMMENTS; Start at 17:00 Dextrose (D50w (Vial) Inj) 50 ml UNSCH PRN IV HYPOGLYCEMIA-SEE COMMENTS; Start 02/05/17 at 17:00 Glucagon (Glucagon Inj) 1 mg UNSCH PRN OTHER HYPOGLYCEMIA-SEE COMMENTS; Start 02/05/17 at 17:00 Insulin Aspart (NovoLOG SUPPLEMENTAL SCALE) 1 ACHS SLIDING SCALE SQ Last administered on 02/08/17 11:00; Start 02/05/17 at 21:00 Ondansetron HCl (Zofran Inj) 4 mg ONCE ONCE IV Last administered on 02/05/17 17:31; Start 02/05/17 at 17:30; Stop 02/05/17 at 17:31; Status DC Morphine Sulfate 4 mg 4 mg ONCE ONCE IV PUSH Last administered on 02/05/17 17 :30; Start 02/05/17 at 17:30; Stop 02/05/17 at 17:31; Status DC Vancomycin HCl 1250 mg/Sodium Chloride 262.5 ml @ 262.5 mls/ hr Q12H IV ; Start 02/05/17 at 19:30; Status UNV Piperacillin Sod/ Tazobactam Sod 50 ml @ 100 mls/hr Q8H IV Last administered on 02/06/17 11:59; Start 02/05/17 at 20:00; Stop 02/06/17 at 12:15; Status DC Pharmacy Profile Note (Vancomycin Consult Pharmacy) 0 ml @ 0 mls/hr UNSCH OTHER ; Start 02/05/17 at 19:30 Baclofen (Lioresal) 10 mg TID PO Last administered on 02/11/17 12:40; Start at 09:00 Cholecalciferol (Vitamin D3) 1,000 units DAILY PO Last administered on 08:39; Start 02/06/17 at 09:00 Diltiazem HCl (Cardizem Cd) 240 mg DAILY PO Last administered on 02/11/17 08: 39; Start 02/06/17 at 09:00 Folic Acid (Folate) 1 mg DAILY PO Last administered on 02/11/17 08:39; Start 02/06/17 at 09:00 Gabapentin (Neurontin) 100 mg Q6HR PO Last administered on 02/11/17 12:40; Start 02/06/17 at 00:00 Potassium Chloride (KCl) 10 meq DAILY PO Last administered on 02/11/17 08:39; Start 02/06/17 at 09:00 Pravastatin Sodium (Pravachol) 20 mg HS PO Last administered on 02/10/17 21:33 ; Start 02/05/17 at 21:00 Pregabalin (Lyrica) 100 mg TID PO Last administered on 02/11/17 12:40; Start 02/06/17 at 09:00 Primidone (Mysoline) 50 mg TID PO Last administered on 02/11/17 12:39; Start 02/06/17 at 09:00 Spironolactone (Aldactone) 25 mg DAILY PO Last administered on 02/11/17 08:39 ; Start 02/06/17 at 09:00 Venlafaxine HCl (Effexor Xr) 300 mg DAILY PO Last administered on 02/11/17 08: 39; Start 02/06/17 at 09:00 Warfarin Sodium (Coumadin) 5 mg SuTuThSa@16 PO Last administered on 02/09/17 15:54; Start 02/05/17 at 19:30; Status Hold Warfarin Sodium (Coumadin) 7.5 mg MoWeFr@16 PO Last administered on 02/08/17 16:00; Start 02/06/17 at 16:00; Status Hold Oxycodone/ Acetaminophen (Percocet 7.5-325 Mg) 1 tab Q6H PRN PO PAIN GREATER THAN 5 Last administered on 02/11/17 08:40; Start 02/05/17 at 19:30 Morphine Sulfate 2 mg 2 mg Q3H PRN IV PUSH BREAKTHROUGH PAIN Last administered on 02/11/17 01:14; Start 02/05/17 at 19:30 Vancomycin HCl/ Sodium Chloride (Vancomycin Inj/ NS 500 ml Inj) 520 ml @ 250 mls/hr Q12H IV Last administered on 02/07/17 11:25; Start 02/05/17 at 22:00; Stop 02/07/17 at 11:42; Status DC Miscellaneous Information SPECIFIC LAB TO BE DRAWN:[facility]... ONCE ONCE .XX Last administered on 02/07/17 10:20; Start 02/07/17 at 09:45; Stop 02/07/17 at 09:46 ; Status DC Albuterol/ Ipratropium (Duoneb Neb) 1 ampule Q4HR NEB PRN NEB SOB/WHEEZING Last administered on 02/07/17 02:54; Start 02/07/17 at 02:45 Acetaminophen/ Butalbital/ Caffeine 1 tab 1 tab ONCE ONCE PO Last administered on 02/07/17 03:57; Start 02/07/17 at 03:30; Stop 02/07/17 at 03:32 ; Status DC Vancomycin HCl/ Sodium Chloride (Vancomycin Inj/ NS 500 ml Inj) 520 ml @ 250 mls/hr Q24H IV Last administered on 02/10/17 11:51; Start 02/08/17 at 11:00; Stop 02/10/17 at 12:03; Status DC Miscellaneous Information SPECIFIC LAB TO BE DRAWN:VANCOMYCIN TROUGH DATE TO... ONCE ONCE .XX Last administered on 02/10/17 10:45; Start 02/10/17 at 10:45; Stop 02/10/17 at 10:46; Status DC Morphine Sulfate 4 mg 4 mg DAILY PRN IV PUSH DRESSING CHANGE Last administered on 02/11/17 06:39; Start 02/09/17 at 13:30 Vancomycin HCl/ Sodium Chloride (Vancomycin Inj/ NS 500 ml Inj) 518 ml @ 250 mls/hr Q24H IV Last administered on 5/29/17at 12:40; Start 02/11/17 at 12:00 A/P Assessment and Plan 61-year-old male with a past medical history of PAD, HTN, DM, HLD, CAD, CVA who presented for a right leg infection Right lower extremity acute cellulitis overlying chronic venous stasis. Sepsis. Failed outpatient antibiotic therapy. On admission Heart rate 96. Respiratory rate 22. WBC 12.3. Afebrile. Lactic acid 1.6. Right lower extremity X-rays with edema and soft tissue swelling. Wound culture from 01/31 was polymicrobial with Pseudomonas, Proteus mirabilis, and MSSA. - Infectious disease following. Zosyn discontinued. Continue vancomycin - Follow up blood cultures. 09/19 so far pos. repeat blood cultures obtained, no growth 1 day. - Agree with ID, patient will need follow-up with wound care and venous stasis clinic. - Appreciate wound care physician, Dr. Zheng recommendations. Patient will need follow-up by the lymphedema clinic. He tells [facility] patient stated he was follow-up after discharge. Diabetes mellitus: Monitor Accu-Cheks. Cover with SSI. History of DVT on chronic anticoagulation: On Coumadin. INR today 3.0. Most likely secondary to antibiotic and diet change. Patient stated that his INR usually control with his current regimen. Will restart Coumadin at 5 mg. Continue chronic medications per the med rec as indicated. Akanksha Person MD February 11, 2017 12:48
[2017-02-11] MEDS ORDERED: WARFARIN SOD 5 MG TAB PO ONE (16:00)
[2017-02-11] MEDS: SODIUM CHLORIDE 0.9% FLUSH 10 ML FLUSH IV FLUSH PRN (16:35)
[2017-02-11] MEDS: PRAVASTATIN SOD 20 MG TAB PO SCH (20:15)
[2017-02-12] VITALS: BP 143/74; PULSE 82; RESP 22; TEMP 98.7; O2SAT 93
[2017-02-12] MEDS: GABAPENTIN 100 MG CAP PO SCH ×4 (00:28→17:17)
[2017-02-12] MEDS: oxyCODONE/ACETAMINOPHEN 7.5 MG/325 MG TAB PO PRN ×3 (00:29→12:24)
[2017-02-12] MEDS: MORPHINE SULFATE 4 MG/ML INJ IV PUSH PRN ×3 (00:30→08:31)
[2017-02-12 04:00] VITALS: BP 100/56; PULSE 72; RESP 18; TEMP 97.6; O2SAT 93
[2017-02-12] MEDS: INSULIN ASPART SUPPLEMENTAL SCALE SQ SCH ×3 (06:26→17:20)
[2017-02-12 07:06] LABS: BICARBONATE 29.5 MEQ/L (21.0-32.0); POTASSIUM 4.4 MEQ/L (3.5-5.1)
[2017-02-12 08:00] VITALS: BP 120/64; PULSE 84; RESP 17; TEMP 97.1; O2SAT 89
[2017-02-12] MEDS: SODIUM CHLORIDE 0.9% FLUSH 10 ML FLUSH IV FLUSH SCH (09:00)
[2017-02-12] MEDS ORDERED: ALTEPLASE RECOMBINANT 2 MG VIAL INTRACATH ONE (09:00)
[2017-02-12] MEDS: VENLAFAXINE HCL XR 75 MG CAP PO SCH (09:16)
[2017-02-12] MEDS: SPIRONOLACTONE 25 MG TAB PO SCH (09:18)
[2017-02-12] MEDS: POTASSIUM CHLORIDE 10 MEQ CAP PO SCH (09:18)
[2017-02-12] MEDS: PREGABALIN 100 MG CAP PO SCH ×3 (09:18→17:16)
[2017-02-12] MEDS: DILTIAZEM-CD 240 MG CAP ER PO SCH (09:19)
[2017-02-12] MEDS: FOLIC ACID 1 MG TAB PO SCH (09:19)
[2017-02-12] MEDS: BACLOFEN 10 MG TAB PO SCH ×3 (09:19→17:17)
[2017-02-12] MEDS: PRIMIDONE 50 MG TAB PO SCH ×3 (09:19→17:17)
[2017-02-12] MEDS: CHOLECALCIFEROL (VIT D3) 1000 UNIT TAB PO SCH (09:20)
[2017-02-12] MEDS ORDERED: PERC5TAB12 PO (09:57)
[2017-02-12 12:00] VITALS: BP 145/62; PULSE 90; RESP 18; TEMP 98.3; O2SAT 90
[2017-02-12] MEDS: VANCOMYCIN INJ 1,800 MG in SODIUM CHLORID 0.9% 500 ML INJ 500 ML IV SCH (12:35)
[2017-02-12 13:23] LABS: INTERNATIONAL NORMALIZED RATIO 2.6 RATIO; PROTHROMBIN TIME - PATIENT 30.3 SEC (9.8-11.6)
--- NOTE | 2017-02-12 13:41 | HHI.IDPN ---
Subjective Subjective Remarks doing good afebrile blood clx growing Staph simulans 1/4 wants to go home RLE pain, swelling redness improving Antibiotics vancomycin Allergies: Coded Allergies: Betadine (Verified Allergy, Severe, 02/05/17) Contrast Media (Verified Allergy, Severe, SHOCK, 02/05/17) Iodine (Verified Allergy, Severe, 02/05/17) MRI PRECAUTION (Verified Allergy, Severe, ANEURSYM CLIPPING, 02/05/17) Objective . Vital Signs Date Time Temp Pulse Resp B/P Pulse Ox O2 Delivery O2 Flow Rate FiO2 02/12/17 12:00 98.3 90 18 145/62 90 02/12/17 08:00 97.1 84 17 120/64 89 02/12/17 04:00 97.6 72 18 100/56 93 02/12/17 00:00 98.7 82 22 143/74 93 02/11/17 20:20 Nasal Cannula 3.00 02/11/17 20:00 96.6 75 18 120/67 93 02/11/17 16:22 95.2 73 18 115/58 94 02/11/17 02/11/17 02/12/17 14:59 22:59 06:59 Output Total 500 ml 200 ml 200 ml Balance -500 ml -200 ml -200 ml Output Urine Total 500 ml 200 ml 200 ml # Bowel Movements 1 . Laboratory Tests Test 02/11/17 06:45 White Blood Count 11.4 TH/MM3 Red Blood Count 3.65 MIL/MM3 Hemoglobin 9.6 GM/DL Hematocrit 30.6 % Mean Corpuscular Volume 83.7 FL Mean Corpuscular Hemoglobin 26.3 PG Mean Corpuscular Hemoglobin 31.4 % Concent Red Cell Distribution Width 17.9 % Platelet Count 292 TH/MM3 Mean Platelet Volume 8.0 FL Neutrophils (%) (Auto) 64.9 % Lymphocytes (%) (Auto) 22.0 % Monocytes (%) (Auto) 8.0 % Eosinophils (%) (Auto) 4.3 % Basophils (%) (Auto) 0.8 % Neutrophils # (Auto) 7.4 TH/MM3 Lymphocytes # (Auto) 2.5 TH/MM3 Monocytes # (Auto) 0.9 TH/MM3 Eosinophils # (Auto) 0.5 TH/MM3 Basophils # (Auto) 0.1 TH/MM3 CBC Comment DIFF FINAL Differential Comment Laboratory Tests Test 02/11/17 02/12/17 06:45 06:18 Sodium Level 136 MEQ/L 137 MEQ/L Potassium Level 3.9 MEQ/L 4.4 MEQ/L Chloride Level 99 MEQ/L 101 MEQ/L Carbon Dioxide Level 29.1 MEQ/L 29.5 MEQ/L Anion Gap 8 MEQ/L 7 MEQ/L Blood Urea Nitrogen 10 MG/DL 11 MG/DL Creatinine 0.76 MG/DL 0.70 MG/DL Estimat Glomerular Filtration 104 ML/MIN 114 ML/MIN Rate Random Glucose 99 MG/DL 107 MG/DL Calcium Level 8.2 MG/DL 8.2 MG/DL Imaging Last Impressions Chest X-Ray 02/07/17 0000 Signed Impressions: Service Date/Time: January 02:36 - CONCLUSION: Normal examination with a right-sided [id number] catheter in good position. Rikki Corbin MD Tibia/Fibula X-Ray 02/05/17 0000 Signed Impressions: Service Date/Time: Sunday, February 05, 2017 15:19 - CONCLUSION: Diffuse subcutaneous edema and soft tissue swelling. No acute osseous abnormality is identified. Jorge Alberto Bazzi MD Foot X-Ray 02/05/17 0000 Signed Impressions: Service Date/Time: Sunday, February 05, 2017 15:13 - CONCLUSION: Severe relatively diffuse soft tissue swelling of the foot similar to the prior study. No acute osseous abnormality is identified. Jorge Alberto Bazzi MD Physical Exam CONSTITUTIONAL/GENERAL: This is an morbidly obese patient, in no apparent distress. PORT in place R chest - no skin changes around SKIN: No jaundice, rashes, or lesions. Skin temperature appropriate. Not diaphoretic. CARDIOVASCULAR: Regular rate and rhythm without murmurs, gallops, or rubs. No JVD. Peripheral pulses symmetric. RESPIRATORY/CHEST: Symmetric, unlabored respirations. Clear to auscultation. Breath sounds equal bilaterally. No wheezes, rales, or rhonchi. GASTROINTESTINAL: Abdomen soft, obese non-tender, moderately distended. Bowel sounds present. MUSCULOSKELETAL: Extremities without clubbing, cyanosis, L AKA RLE with much less edema and erythema discoloration is now brown rather than red not warm to touch minimally tender to touch NEUROLOGICAL: Awake and alert. 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
[2017-02-12] MEDS ORDERED: DOXY100C PO (14:01)
[2017-02-12] MEDS ORDERED: WARF-23 PO (14:01)
[2017-02-12] MEDS ORDERED: CEPH-459 PO (14:01)
--- NOTE | 2017-02-12 14:02 | HHI.DCPOC ---
Discharge Care Plan Diagnosis: (1) Venous stasis dermatitis of right lower extremity (2) Wound infection (3) Cellulitis (4) Diabetes mellitus type 2, uncontrolled Goals to Promote Your Health * To prevent worsening of your condition and complications * To maintain your health at the optimal level Directions to Meet Your Goals Take your medications as prescribed Follow your dietary instruction Follow activity as directed Keep your appointments as scheduled Take your immunizations and boosters as scheduled If your symptoms worsen call your PCP, if no PCP go to Urgent Care Center or Emergency Room Smoking is Dangerous to Your Health. Avoid second hand smoke Call the 24-hour hour crisis hotline for domestic abuse at Akanksha Person MD February 12, 2017 14:02
--- NOTE | 2017-02-12 14:06 | HHI.DS ---
Discharge Summary Admission Date February 05, 2017 at 16:58 Discharge Date: February 12, 2017 Admitting Diagnosis right lower extremity cellulitis, failed outpatient therapy (1) Cellulitis ICD Code: L03.90 Diagnosis: Principal (2) Venous stasis dermatitis of right lower extremity ICD Code: I87.2 Diagnosis: Principal Procedures See hospital course Brief History - From Admission 61-year-old male with a past medical history of PAD, HTN, DM, HLD, CAD, CVA who presented for a right leg infection. Last the patient began having redness of his right lower leg. He went to the ED on Saturday and was prescribed antibiotics for clindamycin and ciprofloxacin. The patient reports that the infection has continued to worsen. He has skin sloughing and yellow drainage. He reports severe pain and swelling in his foot. He denies any fevers or chills. 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 He states that due to persistent right leg swelling, oral antibiotics usually do not work for him and he has had to be on home IV antibiotics in the past. He reports they checked his right leg pulses with the Doppler today. CBC/BMP: 02/11/17 0645 02/12/17 0618 Significant Findings Laboratory Tests Test 02/10/17 02/10/17 02/11/17 02/11/17 06:20 11:05 06:45 09:30 White Blood Count 11.2 TH/MM3 11.4 TH/MM3 (4.0-11.0) (4.0-11.0) Red Blood Count 3.62 MIL/MM3 3.65 MIL/MM3 (4.50-5.90) (4.50-5.90) Hemoglobin 9.4 GM/DL 9.6 GM/DL (13.0-17.0) (13.0-17.0) Hematocrit 30.3 % 30.6 % (39.0-51.0) (39.0-51.0) Mean Corpuscular Hemoglobin 25.9 PG 26.3 PG (27.0-34.0) (27.0-34.0) Mean Corpuscular Hemoglobin 31.0 % 31.4 % Concent (32.0-36.0) (32.0-36.0) Red Cell Distribution Width 17.3 % 17.9 % (11.6-17.2) (11.6-17.2) Prothrombin Time 55.4 SEC 34.5 SEC (9.8-11.6) (9.8-11.6) Carbon Dioxide Level 32.2 MEQ/L (21.0-32.0) Random Glucose 107 MG/DL (74-106) Vancomycin Level Trough 15.7 MCG/ML (5.0-10.0) Eosinophils (%) (Auto) 4.3 % (0.0-4.0) Eosinophils # (Auto) 0.5 TH/MM3 (0-0.4) Calcium Level 8.2 MG/DL (8.5-10.1) Test 02/12/17 02/12/17 06:18 12:40 Random Glucose 107 MG/DL (74-106) Calcium Level 8.2 MG/DL (8.5-10.1) Prothrombin Time 30.3 SEC (9.8-11.6) Imaging Last Impressions Chest X-Ray 02/07/17 0000 Signed Impressions: Service Date/Time: January 02:36 - CONCLUSION: Normal examination with a right-sided Zlkiga-o-Psgk catheter in good position. Rikki Corbin MD Tibia/Fibula X-Ray 02/05/17 0000 Signed Impressions: Service Date/Time: Sunday, February 05, 2017 15:19 - CONCLUSION: Diffuse subcutaneous edema and soft tissue swelling. No acute osseous abnormality is identified. Jorge Alberto Bazzi MD Foot X-Ray 02/05/17 0000 Signed Impressions: Service Date/Time: Sunday, February 05, 2017 15:13 - CONCLUSION: Severe relatively diffuse soft tissue swelling of the foot similar to the prior study. No acute osseous abnormality is identified. Jorge Alberto Bazzi MD PE at Discharge GENERAL: Morbidly obese male. Previous amputation of the left lower extremity CARDIOVASCULAR: Normal rate and regular rhythm without murmurs, gallops, or rubs. RESPIRATORY: Good respiratory efforts. Breath sounds equal and clear to auscultation bilaterally. GASTROINTESTINAL: Abdomen soft, non-tender, non-distended. Normal active bowel sounds MUSCULOSKELETAL: Right lower extremity very edematous with erythema that has improved drastically per patient. No warmth to palpation. NEURO: Alert & Oriented x4 to person, place, time, situation. PSYCH: Appropriate mood and affect. Pt update on day of discharge Follow-up for cellulitis and lymphedema Patient stated that cellulitis has improved drastically. He stated that pain is better controlled. Patient is asking to go home. He remains afebrile. He has no other complaints. Patient stated that he can follow-up with the lymphedema clinic and has no concerns regards to that. He stated that he also has good follow-up in regards to his INR check. Hospital Course 61-year-old male with a past medical history of PAD, HTN, DM, HLD, CAD, CVA who presented for a right leg infection Right lower extremity acute cellulitis overlying chronic venous stasis. Sepsis. Failed outpatient antibiotic therapy. On admission Heart rate 96. Respiratory rate 22. WBC 12.3. Afebrile. Lactic acid 1.6. Right lower extremity X-rays with edema and soft tissue swelling. Wound culture from 01/31 was polymicrobial with Pseudomonas, Proteus mirabilis, and MSSA. - Infectious disease following. He was initially put on Zosyn and vancomycin but then Zosyn was discontinued. Continue vancomycin. - Follow up blood cultures. 09/19 so far pos. repeat blood cultures obtained, no growth. - Per ID, patient will need follow-up with wound care and venous stasis clinic. - Appreciate wound care physician, Dr. Zheng recommendations. Patient will need follow-up by the lymphedema clinic. -On the day of discharge patient was put on doxycycline and Keflex. Diabetes mellitus: Monitor Accu-Cheks. Cover with SSI. History of DVT on chronic anticoagulation: On Coumadin. INR was labile during hospital course. Per patient he was put on too much Coumadin in the hospital. Patient stated that he usually on 5 mg. On the day of discharge INR was 2.6. Patient follows at the [facility] regards to INR. Pt Condition on Discharge: Stable Discharge Disposition: Disch w/ Home Health Serv Discharge Time: > 30 minutes Discharge Instructions DIET: Follow Instructions for: Heart Healthy Diet, Diabetic Diet, Coumadin ( Warfarin) Diet Activities you can perform: Regular-No Restrictions Follow up Referrals: PCP Follow-up - 1 Week New Medications: Cephalexin (Keflex) 250 Mg Cap 500 MG PO Q6H Infection Days 7 Ref 0 CAP Doxycycline Hyclate (Doxycycline Hyclate) 100 Mg Cap 100 MG PO BID Infection Days 7 Ref 0 CAP Oxycodone-Acetaminophen (Percocet) 5-325 mg Tab 1-2 TAB PO Q6H PRN PAIN #30 Ref 0 TAB Warfarin (Warfarin) 5 Mg Tab 5 MG PO DAILY repeat INR in 1-2 days. Your doctor will adjust it accordingly. Blood Clot Prevention #30 Ref 0 TAB Continued Medications: Baclofen (Baclofen) 10 Mg Tab 10 MG PO TID Muscle Spasm Ref 0 TAB Cholecalciferol (Vitamin D3) 1,000 Unit Tab 1000 UNITS PO DAILY Nutritional Supplement #1 Ref 0 BOTTLE Diltiazem CD 24 HR (Diltiazem CD 24 HR) 240 Mg Caper 240 MG PO DAILY #30 Ref 0 CAP Folic Acid (Folate) 1 Mg Tab 1 MG PO DAILY Nutritional Supplement Ref 0 TAB Gabapentin (Gabapentin) 100 Mg Cap 100 MG PO Q6HR #90 Ref 0 CAP Glipizide (Glipizide) 10 Mg Tab 20 MG PO BID Take 30 minutes before a meal Blood Sugar Management #60 Ref 0 TAB Metformin (Metformin) 500 Mg Tab 1500 MG PO DAILY IN THE AM Blood Sugar Management #30 Ref 0 TAB Metformin (Metformin) 500 Mg Tab 1000 MG PO DAILY IN THE PM Blood Sugar Management #60 Ref 0 TAB Potassium Chloride ER (Potassium Chloride ER) 10 Meq Cap 10 MEQ PO DAILY Electrolyte Replacement #30 Ref 0 CAP Pravastatin (Pravastatin) 20 Mg Tab 20 MG PO HS Cholesterol Management #30 Ref 0 TAB Pregabalin (Lyrica) 100 Mg Cap 100 MG PO TID #90 Ref 0 CAP Primidone (Primidone) 50 Mg Tab 50 MG PO TID Control Seizures #60 Ref 0 TAB Spironolactone (Spironolactone) 25 Mg Tab 25 MG PO DAILY #30 Ref 0 TAB Venlafaxine ER 24 HR (Venlafaxine ER 24 HR) 150 Mg Tab 300 MG PO DAILY #30 Ref 0 TAB Discontinued Medications: Ciprofloxacin (Ciprofloxacin) 500 Mg Tab 500 MG PO BID Infection Days 10 Ref 0 TAB Clindamycin (Clindamycin) 300 Mg Cap 300 MG PO TID Infection Days 10 Ref 0 CAP Insulin Human Regular Inj (Humulin R Inj) 1,000 Unit/10 Ml Vial 40 UNITS SQ HS Max dose at bedtime:( )units; sugars < 70,(0)units; sugars 150- 199,(5)units; sugars 200-249,(10)units; sugars 250-299,(15)units; sugars 300-349 ,(20)units; sugars more than 349,(25)units. Blood Sugar Management #10 Ref 0 ML Warfarin (Warfarin) 5 Mg Tab 5 MG PO SUTUTHSA Take 1 tablet (5mg) on Saturday,Saturday, and Saturday Blood Clot Prevention #30 Ref 0 TAB Warfarin (Warfarin) 5 Mg Tab 7.5 MG PO MOWEFR Take 1&1/2 tabs (7.5mg) on Saturday,Saturday and Saturday Blood Clot Prevention #30 Ref 0 TAB Akanksha Person MD February 12, 2017 14:06
[2017-02-12 16:00] VITALS: BP 96/41; PULSE 80; RESP 18; TEMP 97.4; O2SAT 90
[2017-02-14] MEDS ORDERED: PHARMACY ORDERED LAB ONE (11:45)
== END 2017-02-12 19:21 | disposition home health service (06) | DRG 603 ==
LOC: NEPC 13:40 → NEDA 16:58 → N05A 22:23
PROVIDERS: ADMIT Family Medicine; ATTEND Family Medicine
DX: L03.115 Cellulitis of right lower limb (principal); I42.9 Cardiomyopathy, unspecified; I48.91 Unspecified atrial fibrillation; E66.01 Morbid (severe) obesity due to excess calories; I11.0 Hypertensive heart disease with heart failure; I50.9 Heart failure, unspecified; G25.0 Essential tremor; J44.9 Chronic obstructive pulmonary disease, unspecified; E11.9 Type 2 diabetes mellitus without complications; E78.5 Hyperlipidemia, unspecified; G47.30 Sleep apnea, unspecified; I25.10 Atherosclerotic heart disease of native coronary artery without angina pectoris; I25.2 Old myocardial infarction; I87.2 Venous insufficiency (chronic) (peripheral); I87.8 Other specified disorders of veins; L03.116 Cellulitis of left lower limb; F17.200 Nicotine dependence, unspecified, uncomplicated; Z79.01 Long term (current) use of anticoagulants; Z86.14 Personal history of Methicillin resistant Staphylococcus aureus infection; Z86.73 Personal history of transient ischemic attack (TIA), and cerebral infarction without residual deficits; Z89.612 Acquired absence of left leg above knee; Z99.3 Dependence on wheelchair
CPT/HCPCS: 71010; 73590; 73630; 80048; 80202; 82948; 83605; 85025; 85027; 85610; 85730; 86403; 87040; 87077; 87186; 87205; 94664; 99285; J1580; J1642; J1815; J2270; J2405; J2543; J2997; J3370; J7040

== ENCOUNTER 2017-03-26 22:44 | Inpatient (IN) | payer OTHER, MEDICARE ==
[~2017-03-26] VITALS: Ht 188 cm; Wt 157.3 kg
[~2017-03-26 22:44] MED LIST changes: +CEPH-459 PO; -CIPR500T2 PO; -CLIN1CAP6 PO; +DOXY100C PO; -INSU100V2 SQ; +PERC5TAB12 PO
[2017-03-26 22:46] VITALS: BP 141/78; PULSE 106; RESP 16; TEMP 98.7; O2SAT 97
--- NOTE | 2017-03-26 22:49 | PD ---
Physical Exam Date Seen by Provider: Mar 26, 2017 Time Seen by Provider: 22:48 Narrative 62 yo male here for right foot pain. per patient here for infection. Been worst for two days. Nothing makes it better. Foot and leg is swollen in triage. has gracie wrap on it. Pain is 6/10. No injuries. History of diabetes. No other complaints. Vitals are stable in triage. Awaiting Bed placement. Data Data Last Documented VS Vital Signs Date Time Temp Pulse Resp B/P Pulse Ox O2 Delivery O2 Flow Rate FiO2 03/26/17 22:46 98.7 106 16 141/78 97 Room Air [facility] Medical Record Reviewed: Yes Supervised Visit with HARRIET: No Shade Gayle Mar 26, 2017 22:49
--- NOTE | 2017-03-26 23:35 | PD ---
HPI Chief Complaint: Edema Time Seen by Provider: 23:27 Travel History International Travel<30 days: No Contact w/Intl Traveler<30days: No Traveled to known affect area: No History of Present Illness HPI The patient is a 62 year old male who presents to the [facility] emergency department with a history of right lower extremity pain, drainage, increased swelling and redness that began a few days ago. The patient reports that he has a history of recurrent cellulitis of the right leg related to edema and valvular abnormalities of the leg from prior DVTs. The patient additionally has a history of MRSA wound infections and is status post xtwbs-dut-lczv amputation of the left leg. The patient is followed by a wound care nurse at home. He reports that they come out daily to change his dressing. His dressing was last changed yesterday. He last completed a course of cephalexin and doxycycline as an outpatient 5 days ago. The patient is followed through the [facility] for his primary care. He denies going to a wound clinic. The patient denies having any fevers. He denies having any chills. Otherwise on review of systems, the patient denies any recent cough, congestion , neck pain, chest pain, shortness of breath, abdominal pain, vomiting, diarrhea , urinary symptoms, or neurologic symptoms. PFSH Past Medical History Narrative Medical The patient has a past medical history significant for venous insufficiency, peripheral arterial disease, hypertension, diabetes mellitus, hyperlipidemia, coronary artery disease, cerebrovascular accident, history of myocardial infarction 2, history of brain aneurysm status post clipping, history of a DVT , chronically on anticoagulation, agent orange exposure, depression, and history of MRSA infection of the left lower extremity status post amputation. The patient has recurrent cellulitis of the right lower extremity. The patient was most recently admitted with cellulitis in January 2017. The patient was evaluated by Dr. Garcia of the wound care center who recommended that he follow-up with the lymphedema clinic when he was discharged. Hx Anticoagulant Therapy: Yes (COUMADIN) Arthritis: Yes (OA) Asthma: No Atrial Fibrillation: Yes Autoimmune Disease: No Blood Disorders: Yes (PT. HAS HISTORY OF BLOOD CLOTS.) Anxiety: No Depression: No Heart Rhythm Problems: Yes Cancer: No ( ) Cardiac Catheterization: Yes Cardiomyopathy: Yes Cardiovascular Problems: Yes (LA X 2) High Cholesterol: Yes Chemotherapy: No Chest Pain: Yes (hx of on nitroglycerin tabs average two tabsx2 monthly) Congestive Heart Failure: Yes COPD: Yes Cerebrovascular Accident: Yes (TIA X3) Coronary Artery Disease: Yes Diabetes: Yes Diminished Hearing: No Deep Vein Thrombosis: Yes Endocrine: Yes Gastrointestinal Disorders: No GERD: No Glaucoma: No Genitourinary: No Headaches: Yes Hepatitis: No Hiatal Hernia: No Hypertension: Yes Immune Disorder: No Implanted Vascular Access Dvce: Yes (PORT RIGHT CHEST WALL) Kidney Stones: No Musculoskeletal: Yes (back and AKA left leg) Neurologic: Yes (BRAIN SURGERY, ANEURYSM CLIPPED IN 1990, ESSENTIAL TREMORS) Psychiatric: No Reproductive: No Respiratory: Yes (COPD) Integumentary: Yes (CELLULITIS) Migraines: Yes Myocardial Infarction: Yes (X 2) Radiation Therapy: No Renal Failure: No Seizures: No (use seizure meds for hand tremors) Sickle Cell Disease: No Sleep Apnea: Yes Thyroid Disease: No Ulcer: No Past Surgical History Narrative Surgical The patient's past surgical history is significant for an aneurysm clipping in 1990, left orpmi-poc-fcxe amputation, cholecystectomy, appendectomy, tonsillectomy, hemorrhoidectomy, Xgjkji-n-Hvpm placement. Abdominal Surgery: Yes (APPENDECTOMY 1954) AICD: No Appendectomy: Yes Arteriovenous Shunt: No Body Medical Devices: BRAIN CLIPS, INFUSAPORT TO RIGHT CHEST Cardiac Surgery: No Cholecystectomy: No Ear Surgery: No Endocrine Surgery: No Eye Surgery: No Genitourinary Surgery: No Gynecologic Surgery: No Insulin Pump: No Joint Replacement: No Neurologic Surgery: Yes (BRAIN ANURYSIM CLIPPED IN 1990.) Oral Surgery: No Pacemaker: No Thoracic Surgery: Yes (TENSION PNEUMOTHORAX-CHEST TUBE --RIGHT 71) Tonsillectomy: Yes (1956) Other Surgery: Yes (brain and back sx) Social History Alcohol Use: No Tobacco Use: Yes (1 ppd 3 hrs ago) Substance Use: No Allergies-Medications (Allergen,Severity, Reaction): Coded Allergies: Betadine (Verified Allergy, Severe, 03/26/17) Contrast Media (Verified Allergy, Severe, SHOCK, 03/26/17) Iodine (Verified Allergy, Severe, 03/26/17) MRI PRECAUTION (Verified Allergy, Severe, ANEURSYM CLIPPING, 03/26/17) Reported Meds & Prescriptions Reported Meds & Active Scripts Active Warfarin 5 Mg Tab 5 Mg PO DAILY repeat INR in 1-2 days. Your doctor will adjust it accordingly. Reported Lyrica (Pregabalin) 100 Mg Cap 100 Mg PO TID Glipizide 10 Mg Tab 20 Mg PO BID Take 30 minutes before a meal Venlafaxine ER 24 HR (Venlafaxine HCl) 150 Mg Tab 300 Mg PO DAILY Diltiazem CD 24 HR 240 Mg Caper 240 Mg PO DAILY Potassium Chloride ER (Potassium Chloride) 10 Meq Cap 10 Meq PO DAILY Primidone 50 Mg Tab 50 Mg PO TID Pravastatin 20 Mg Tab 20 Mg PO HS Metformin (Metformin HCl) 500 Mg Tab 1,000 Mg PO DAILY IN THE PM Metformin (Metformin HCl) 500 Mg Tab 1,500 Mg PO DAILY IN THE AM Spironolactone 25 Mg Tab 25 Mg PO DAILY Gabapentin 100 Mg Cap 100 Mg PO Q6HR Baclofen 10 Mg Tab 10 Mg PO TID Review of Systems Except as stated in HPI: all other systems reviewed are Neg General / Constitutional: No: Fever Eyes: No: Visual changes HENT: No: Headaches Cardiovascular: No: Chest Pain or Discomfort Respiratory: No: Shortness of Breath Gastrointestinal: No: Abdominal Pain Genitourinary: No: Dysuria Musculoskeletal: Positive: Myalgias, Limited ROM, Edema, Pain Skin: Positive Rash Neurologic: No: Weakness, Focal Abnormalities, Change in Mentation, Slurred Speech, Sensory Disturbance Psychiatric: No: Depression Endocrine: No: Polydipsia Hematologic/Lymphatic: No: Easy Bruising Physical Exam Narrative General: The patient is a well-developed well-nourished male in no acute distress. Head and Neck exam: Head is normocephalic atraumatic. Eyes: EOMI, pupils are equal round and reactive to light. Nose: Midline septum with pink mucous membranes Mouth: Dentition unremarkable. Moist mucus membranes. Posterior oropharynx is not erythematous. No tonsillar hypertrophy. Uvula midline. Airway patent. Neck: No palpable lymphadenopathy. No nuchal rigidity. No thyromegaly. Cardiovascular: Regular rate and rhythm without murmurs, gallops, or rubs. Lungs: Clear to auscultation bilaterally. No wheezes, rhonchi, or rales. Abdomen: Soft, with abdominal distention related to central obesity, without tenderness to palpation in all 4 quadrants of the abdomen. No guarding, rebound, or rigidity. Normal bowel sounds are audible. No tenderness on palpation of McBurney's point. Negative Rosalie sign. Extremities: The patient has a left lpvnx-jtw-arzq amputation that appears to have healed well. The patient's right lower extremity has a bandage in place. The patient' s toes are protruding from the bandage and they are erythematous and edematous with a yellow drainage noted. The patient's dressing was removed. The patient' s dressing will be replaced. The patient is noted to have skin ulceration involving the skin overlying the entire tib-fib area and dorsum of the foot. The patient reports tenderness on palpation. There is no palpable pulse, however his cap refill is less than 4 seconds. The patient has intact sensation over his foot. Back: No costovertebral angle tenderness to palpation. Neurologic Exam: Grossly nonfocal and at baseline. Skin Exam: No rash noted. Intact skin that is warm and dry. Data Data Last Documented VS Vital Signs Date Time Temp Pulse Resp B/P Pulse Ox O2 Delivery O2 Flow Rate FiO2 03/27/17 01:18 18 03/27/17 01:00 94 121/64 94 Nasal Cannula 2 03/26/17 22:46 98.7 Orders Electrocardiogram (03/27/17:14) Complete Blood Count With Diff (03/27/17:) Comprehensive Metabolic Panel (03/27/17:) Creatine Kinase (Cpk) (03/27/17:14) Ckmb (Isoenzyme) Profile (03/27/17:14) Troponin I (03/27/17:) B-Type Natriuretic Peptide (03/27/17:14) Prothrombin Time / Inr (Pt) (03/27/17:14) Act Partial Throm Time (Ptt) (03/27/17:14) Blood Culture (03/27/17:14) C-Reactive Protein (Crp) (03/27/17:14) Urinalysis - C+S If Indicated (03/27/17:) Magnesium (Mg) (03/27/17:14) Wound Culture And Gram Stain (03/27/17:) Chest, Single Ap (03/27/17:14) Iv Access Insert/Monitor (03/27/17:14) Ecg Monitoring (7/12/17 00:14) Oximetry (03/27/17 00:14) Lactic Acid Sepsis Protocol (03/27/17 00:14) Foot, Complete (Sto3xjf) (03/27/17 00:14) Piperacil-Tazo 3.375 Gm Premix (Zosyn 3. (03/27/17 00:30) Vancomycin Inj (Vancomycin Inj) (03/27/17 00:30) Morphine Inj (Morphine Inj) (03/27/17 00:30) Ondansetron Inj (Zofran Inj) (03/27/17 00:30) Morphine Inj (Morphine Inj) (03/27/17 00:22) Sodium Chlorid 0.9% 500 Ml Inj (Ns 500 M (03/27/17 01:30) Admit Order (Ed Use Only) (03/27/17 01:30) Labs Laboratory Tests Test 03/27/17 00:07 White Blood Count 12.4 TH/MM3 Red Blood Count 4.24 MIL/MM3 Hemoglobin 10.3 GM/DL Hematocrit 33.2 % Mean Corpuscular Volume 78.3 FL Mean Corpuscular Hemoglobin 24.4 PG Mean Corpuscular Hemoglobin 31.2 % Concent Red Cell Distribution Width 17.9 % Platelet Count 357 TH/MM3 Mean Platelet Volume 8.2 FL Neutrophils (%) (Auto) 70.4 % Lymphocytes (%) (Auto) 21.1 % Monocytes (%) (Auto) 5.3 % Eosinophils (%) (Auto) 2.3 % Basophils (%) (Auto) 0.9 % Neutrophils # (Auto) 8.7 TH/MM3 Lymphocytes # (Auto) 2.6 TH/MM3 Monocytes # (Auto) 0.7 TH/MM3 Eosinophils # (Auto) 0.3 TH/MM3 Basophils # (Auto) 0.1 TH/MM3 CBC Comment DIFF FINAL Differential Comment Prothrombin Time 33.5 SEC Prothromb Time International 2.9 RATIO Ratio Activated Partial 49.3 SEC Thromboplast Time Sodium Level 138 MEQ/L Potassium Level 3.6 MEQ/L Chloride Level 99 MEQ/L Carbon Dioxide Level 29.1 MEQ/L Anion Gap 10 MEQ/L Blood Urea Nitrogen 9 MG/DL Creatinine 0.86 MG/DL Estimat Glomerular Filtration 90 ML/MIN Rate Random Glucose 170 MG/DL Lactic Acid Level 2.6 mmol/L Calcium Level 8.8 MG/DL Magnesium Level 1.9 MG/DL Total Bilirubin 0.3 MG/DL Aspartate Amino Transf 12 U/L (AST/SGOT) Alanine Aminotransferase 10 U/L (ALT/SGPT) Alkaline Phosphatase 50 U/L Total Creatine Kinase 34 U/L Troponin I LESS THAN 0.02 NG/ML C-Reactive Protein 8.40 MG/DL B-Type Natriuretic Peptide 37 PG/ML Total Protein 8.4 GM/DL Albumin 2.3 GM/DL MDM Medical Decision Making Medical Screen Exam Complete: Yes Emergency Medical Condition: Yes Medical Record Reviewed: Yes Interpretation(s) Last Impressions Foot X-Ray 03/27/1713 Signed Impressions: Service Date/Time: Monday, March 27, 2017 00:12 - CONCLUSION: Nonspecific severe soft tissue swelling. No acute bony abnormality demonstrated. Jorge Alberto Richard MD Chest X-Ray 03/27/1713 Signed Impressions: Service Date/Time: Monday, March 27, 2017 00:20 - CONCLUSION: Trace consolidation and pleural fluid at each lung base. Jorge Alebrto Richard MD Differential Diagnosis Cellulitis, versus osteomyelitis, versus recurrent lymphedema, versus recurrent DVT Narrative Course During the course of the patients emergency department visit, the patients history, examination, and differential diagnosis were reviewed with the patient. The patient had IV access obtained and blood work sent for analysis. The patient was placed on a head of precision targeting with oximetry and blood pressure monitoring. An ECG will be done. The patient reports that he is on Coumadin and has been taking it regularly. He last had his INR checked 2 weeks ago and it was reportedly 2.6. The patient had an ECG done on arrival that shows a sinus rhythm heart rate of 94, nonspecific T-wave abnormalities, QRS duration is 95 ms, QTC [address] segment elevation. The patient was initially provided vancomycin 1 g IV, Zosyn 3.375 g IV, morphine 4 mg IV for pain, Zofran for mild grams IV for nausea. The patients laboratory studies were reviewed and remarkable for a white count of 12.4, hemoglobin 10.3, platelets 357 with neutrophils 70.4, CMP is remarkable for glucose of 178, AST 12, ALT 10, CPK 34, troponin I less than 0.02 , C-reactive protein 8.40, BNP 37, albumin 2.3, PTT 33.5, INR 2.9, PTT 49.3 Radiology studies were reviewed and remarkable for for a chest x-ray that showed a trace consolidation or pleural fluid at each lung base. Right foot x- ray reveals nonspecific severe soft tissue swelling, no acute bony abnormality demonstrated. The patient will be admitted to the hospital for failed outpatient management of right foot and leg infection. The patients results were discussed with the patient, including the plan of care. I explained that further testing and/ or monitoring is indicated based on the patients history, examination, and/ or laboratory findings. Therefore, I recommended admission for additional evaluation. The patient expressed understanding and was agreeable with this plan. The patient was admitted to the hospital in stable condition and sent to a bed under the care of [facility] Hospitalist service. Physician Communication Physician Communication The patient's case was discussed with Dr. Ruiz who did agree to admit the patient for further evaluation and treatment at this time. Diagnosis Primary Impression: Cellulitis of right leg Additional Impressions: Cellulitis of right foot Failure of outpatient treatment Admitting Information Admitting Physician Requests: it Farideh Tsai MD Mar 26, 2017 23:35
[2017-03-26 23:41] VITALS: BP 132/73; PULSE 99; RESP 20; O2SAT 96
[2017-03-27] VITALS (11 sets, daily range): BP systolic 120–147; BP diastolic 56–74; PULSE 89–99; RESP 18–23; TEMP 95.8–97.8; O2SAT 92–96
[2017-03-27] MEDS ORDERED: MORPHINE SULFATE 8 MG/ML INJ ONE ×2 (00:22→11:20)
[2017-03-27] MEDS ORDERED: PIPERACIL-TAZO 3.375 GM PREMIX 50 ML IV ONE (00:30)
[2017-03-27] MEDS ORDERED: MORPHINE SULFATE 4 MG/ML INJ IV PUSH ONE (00:30)
[2017-03-27] MEDS ORDERED: VANCOMYCIN INJ 1,000 MG in SODIUM CHLOR 0.9% 250 ML INJ 250 ML IV ONE (00:30)
[2017-03-27] MEDS ORDERED: ONDANSETRON HCL 4 MG/2 ML VIAL IV PUSH ONE (00:30)
--- NOTE | 2017-03-27 00:42 | RADRPT ---
EXAM DATE/TIME: 03/27/2017 00:20 [facility] COMPARISON: CHEST SINGLE AP, February 07, 2017, 2:36. INDICATIONS : Short of breath. MEDICAL HISTORY : Chronic obstructive pulmonary disease. Diabetes mellitus type II. Stroke. SURGICAL HISTORY : None. ENCOUNTER: Initial ACUITY: 1 day PAIN SCORE: 0/10 LOCATION: Bilateral chest FINDINGS: Mild consolidation and small effusions seen at each lung base. No pneumothorax. Heart size stable, wi thin normal limits. Right internal jugular Dysocl-t-Ezxx catheter are again seen, tip in the superior vena cava. CONCLUSION: Trace consolidation and pleural fluid at each lung base. Jorge Alberto Richard MD on March 27, 2017 at 0:39 Board Certified Radiologist. This report was verified electronically.
[2017-03-27 00:48] LABS: AUTOMATED NEUTROPHIL # 8.7 TH/MM3 (1.8-7.7); BASOPHIL # 0.1 TH/MM3 (0-0.2); BASOPHIL % 0.9 % (0.0-2.0); EOSINOPHIL # 0.3 TH/MM3 (0-0.4); EOSINOPHIL % 2.3 % (0.0-4.0); HEMATOCRIT 33.2 % (39.0-51.0); HEMO FLAGS DIFF FINAL; LYMPH % 21.1 % (9.0-44.0); LYMPHOCYTE # 2.6 TH/MM3 (1.0-4.8); MEAN CELL VOLUME 78.3 FL (80.0-100.0); MEAN CORPUSCULAR HEMOGLOBIN 24.4 PG (27.0-34.0); MEAN CORPUSCULAR HGB CONC 31.2 % (32.0-36.0); MONO % 5.3 % (0.0-8.0); NEUT % 70.4 % (16.0-70.0); PLATELET COUNT 357 TH/MM3 (150-450); RED BLOOD COUNT 4.24 MIL/MM3 (4.50-5.90); RED CELL DISTRIBUTION WIDTH 17.9 % (11.6-17.2); WHITE BLOOD COUNT 12.4 TH/MM3 (4.0-11.0)
--- NOTE | 2017-03-27 00:54 | RADRPT ---
EXAM DATE/TIME: 03/27/2017 00:12 [facility] COMPARISON: FOOT RIGHT COMPLETE ([id number]), February 05, 2017, 15:13. INDICATIONS : Right foot swelling, Possible infection. MEDICAL HISTORY : Diabetes mellitus type II. SURGICAL HISTORY : Right leg amputation ENCOUNTER: Initial ACUITY: 1 day PAIN SCORE: 10/10 LOCATION: Left foot FINDINGS: Diffuse soft tissue swelling again noted. No fracture, subluxation or bone destruction demonstrated. Incidentally seen is an os peroneum and there is also an enthesophyte of the Achilles insertion. CONCLUSION: Nonspecific severe soft tissue swelling. No acute bony abnormality demonstrated. Jorge Alberto Richard MD on March 27, 2017 at 0:51 Board Certified Radiologist. This report was verified electronically.
[2017-03-27 00:58] LABS: APTT (PATIENT) 49.3 SEC (24.3-30.1); INTERNATIONAL NORMALIZED RATIO 2.9 RATIO; PROTHROMBIN TIME - PATIENT 33.5 SEC (9.8-11.6)
[2017-03-27 01:15] LABS: ANION GAP 10 MEQ/L (5-15); AST (GOT) 12 U/L (15-37); BICARBONATE 29.1 MEQ/L (21.0-32.0); BLOOD UREA NITROGEN 9 MG/DL (7-18); CHLORIDE 99 MEQ/L (98-107); GLOMERULAR FILTRATION RATE 90 ML/MIN (>89); MAGNESIUM 1.9 MG/DL (1.5-2.5); POTASSIUM 3.6 MEQ/L (3.5-5.1); SODIUM (NA) 138 MEQ/L (136-145)
[2017-03-27 01:16] LABS: ALT (GPT) 10 U/L (12-78)
[2017-03-27 01:18] LABS: ALKALINE PHOSPHATASE 50 U/L (45-117); TOTAL BILIRUBIN ADULT 0.3 MG/DL (0.2-1.0)
[2017-03-27 01:20] LABS: CREATINE KINASE 34 U/L (39-308)
[2017-03-27] MEDS ORDERED: SODIUM CHLORID 0.9% 500 ML INJ 500 ML IV ONE (01:30)
[2017-03-27] MEDS ORDERED: DEXTROSE 50% IN WATER 50 ML VIAL(D50) IV PRN ×2 (01:45→08:15)
[2017-03-27] MEDS ORDERED: GLUCAGON 1 MG/ML VIAL OTHER PRN ×2 (01:45→08:15)
[2017-03-27] MEDS ORDERED: NALOXONE HCL 0.4 MG/ML AMP IV PRN (01:45)
[2017-03-27] MEDS ORDERED: SODIUM CHLORIDE 0.9% FLUSH 10 ML FLUSH IV FLUSH PRN (01:45)
[2017-03-27 02:40] LABS: LACTIC ACID GHOST NOT REPORTABLE
[2017-03-27] MEDS: MORPHINE SULFATE 8 MG/ML INJ IV PUSH PRN ×3 (02:48→11:24)
[2017-03-27] MEDS ORDERED: INSULIN ASPART SUPPLEMENTAL SCALE SQ SCH (07:00)
[2017-03-27] MEDS: SODIUM CHLORIDE 0.9% FLUSH 10 ML FLUSH IV FLUSH SCH ×2 (08:55→21:04)
[2017-03-27] MEDS: DILTIAZEM-CD 240 MG CAP ER PO SCH (09:38)
[2017-03-27] MEDS: POTASSIUM CHLORIDE 10 MEQ CAP PO SCH (09:38)
[2017-03-27] MEDS: VENLAFAXINE HCL XR 75 MG CAP PO SCH (10:00)
[2017-03-27] MEDS: SPIRONOLACTONE 25 MG TAB PO SCH (10:00)
[2017-03-27] MEDS: BACLOFEN 10 MG TAB PO SCH ×3 (10:01→18:49)
[2017-03-27] MEDS: PRIMIDONE 50 MG TAB PO SCH ×3 (10:01→18:50)
[2017-03-27] MEDS ORDERED: Vancomycin Consult Pharmacy 1 EA OTHER SCH (10:30)
--- NOTE | 2017-03-27 10:31 | HHI.HP ---
[facility] Admission Diagnosis Cellulitis right leg Diagnoses: Travel History International Travel<30 Days: No Contact w/Intl Traveler <30 Da: No Traveled to Known Affected Are: No Sepsis Criteria SIRS Criteria (2 or more): Heart rate over 90, WBC > 51392, < 4000 or > 10% bands Sepsis Criteria (SIRS+source): Infect source susp/known Severe Sepsis (+one): Lactate >2 History of Present Illness Mr. Aguero is a 62-year-old male. He has right lower extremity lymphedema. Left lower extremity has been amputated in the past secondary to osteomyelitis. Peripheral artery disease is present and places him at increased risk for infections in addition to his lymphedema. He says for the past 3 days he has had an acute worsening and increased redness and pain of his right lower extremity below the knee. She denies any fevers. Labs reveal leukocytosis and tachycardia is present; a lactic acid level of 2.6 on admit and obvious source of infection disqualifies him for severe sepsis criteria. No septic shock. No other complaints. Patient has no chest pain. At baseline he is wheelchair dependent. Review of Systems Constitutional: COMPLAINS OF: Fatigue, DENIES: Fever, Chills Endocrine: DENIES: Heat/cold intolerance, Polydipsia, Polyuria Eyes: DENIES: Blurred vision, Diplopia, Eye pain Ears, nose, mouth, throat: DENIES: Hearing loss, Vertigo, Throat pain Respiratory: DENIES: Cough, Wheezing, Sputum production Cardiovascular: DENIES: Chest pain, Palpitations, Syncope Gastrointestinal: DENIES: Abdominal pain, Black stools, Bloody stools Musculoskeletal: DENIES: Joint pain, Muscle aches, Stiffness Integumentary: COMPLAINS OF: Abnormal pigmentation Hematologic/lymphatic: DENIES: Bruising Immunologic/allergic: DENIES: Eczema Neurologic: DENIES: Abnormal gait, Headache Psychiatric: DENIES: Anxiety, Confusion Past Family Social History Past Medical History Peripheral artery disease Neuropathy Hypertension Hyperlipidemia Diabetes mellitus type 2 Old myocardial infarction 2 History of CVA 3 History of brain aneurysm History of DVT Agent [place] exposure Depression Past Surgical History Brain aneurysm clipping in 1990 Left AKA secondary to also mellitus Cholecystectomy Appendectomy Tonsillectomy Hemorrhoidectomy Port placement Reported Medications Reported Meds & Active Scripts Active Warfarin 5 Mg Tab 5 Mg PO DAILY repeat INR in 1-2 days. Your doctor will adjust it accordingly. Reported Lyrica (Pregabalin) 100 Mg Cap 100 Mg PO TID Glipizide 10 Mg Tab 20 Mg PO BID Take 30 minutes before a meal Venlafaxine ER 24 HR (Venlafaxine HCl) 150 Mg Tab 300 Mg PO DAILY Diltiazem CD 24 HR 240 Mg Caper 240 Mg PO DAILY Potassium Chloride ER (Potassium Chloride) 10 Meq Cap 10 Meq PO DAILY Primidone 50 Mg Tab 50 Mg PO TID Pravastatin 20 Mg Tab 20 Mg PO HS Metformin (Metformin HCl) 500 Mg Tab 1,000 Mg PO DAILY IN THE PM Metformin (Metformin HCl) 500 Mg Tab 1,500 Mg PO DAILY IN THE AM Spironolactone 25 Mg Tab 25 Mg PO DAILY Gabapentin 100 Mg Cap 100 Mg PO Q6HR Baclofen 10 Mg Tab 10 Mg PO TID Allergies: Coded Allergies: Betadine (Verified Allergy, Severe, 03/26/17) Contrast Media (Verified Allergy, Severe, SHOCK, 03/26/17) Iodine (Verified Allergy, Severe, 03/26/17) MRI PRECAUTION (Verified Allergy, Severe, ANEURSYM CLIPPING, 03/26/17) Active Ordered Medications Administered Medications Medications (Trade) Dose Ordered Sig/Carrie Route PRN Reason Start Time Stop Time Status Last Admin Dose Admin Morphine Sulfate (Morphine Inj) 2 mg Q3H PRN IV PUSH paiFLUSH AFTER USING IV ACn >5 03/27/17 01:45 03/27/17 05:01 Baclofen (Lioresal) 10 mg TID PO 03/27/17 10:00 03/27/17 10:01 Diltiazem HCl (Cardizem Cd) 240 mg DAILY PO 03/27/17 09:30 03/27/17 09:38 Potassium Chloride (KCl) 10 meq DAILY PO 03/27/17 09:30 03/27/17 09:38 Primidone (Mysoline) 50 mg TID PO 03/27/17 10:00 03/27/17 10:01 Spironolactone (Aldactone) 25 mg DAILY PO 03/27/17 10:00 03/27/17 10:00 Venlafaxine HCl (Effexor Xr) 300 mg DAILY PO 03/27/17 10:00 03/27/17 10:00 Family History Patient was adopted so no family history of present Social History No alcohol abuse No drug abuse Patient smokes less than half a pack per day for last 51 years Physical Exam Vital Signs Vital Signs Date Time Temp Pulse Resp B/P Pulse Ox O2 Delivery O2 Flow Rate FiO2 03/27/17 08:31 98 20 147/74 94 03/27/17 07:05 98 143/62 96 03/27/17 05:36 20 03/27/17 05:00 99 22 145/70 95 Nasal Cannula 2 03/27/17 01:48 95 Nasal Cannula 2 03/27/17 01:18 18 03/27/17 01:00 94 20 121/64 94 Nasal Cannula 2 03/27/17 00:40 23 92 Room Air 03/26/17 23:41 99 20 132/73 96 Room Air 03/26/17 22:46 98.7 106 16 141/78 97 Room Air Physical Exam GENERAL: NAD, A&Ox3, severe obesity HEAD: Normocephalic. NECK: Supple, trachea midline. No lymphadenopathy. EYES: No scleral icterus. No injection or drainage. CARDIOVASCULAR: Regular rate and rhythm without murmurs, gallops, or rubs. RESPIRATORY: Breath sounds equal bilaterally. No accessory muscle use. GASTROINTESTINAL: Abdomen soft, non-tender, nondistended. MUSCULOSKELETAL: No cyanosis, or edema. Left BKA (chronic). Right lower extremity lymphedema with erythema and warmth below the knee. SKIN: Warm and dry. NEURO: No focal neurological deficitis. Laboratory Laboratory Tests Test 03/27/17 03/27/17 00:07 02:43 White Blood Count 12.4 Red Blood Count 4.24 Hemoglobin 10.3 Hematocrit 33.2 Mean Corpuscular Volume 78.3 Mean Corpuscular Hemoglobin 24.4 Mean Corpuscular Hemoglobin 31.2 Concent Red Cell Distribution Width 17.9 Platelet Count 357 Mean Platelet Volume 8.2 Neutrophils (%) (Auto) 70.4 Lymphocytes (%) (Auto) 21.1 Monocytes (%) (Auto) 5.3 Eosinophils (%) (Auto) 2.3 Basophils (%) (Auto) 0.9 Neutrophils # (Auto) 8.7 Lymphocytes # (Auto) 2.6 Monocytes # (Auto) 0.7 Eosinophils # (Auto) 0.3 Basophils # (Auto) 0.1 CBC Comment DIFF FINAL Differential Comment Prothrombin Time 33.5 Prothromb Time International 2.9 Ratio Activated Partial 49.3 Thromboplast Time Sodium Level 138 Potassium Level 3.6 Chloride Level 99 Carbon Dioxide Level 29.1 Anion Gap 10 Blood Urea Nitrogen 9 Creatinine 0.86 Estimat Glomerular Filtration 90 Rate Random Glucose 170 Lactic Acid Level 2.6 1.4 Calcium Level 8.8 Magnesium Level 1.9 Total Bilirubin 0.3 Aspartate Amino Transf 12 (AST/SGOT) Alanine Aminotransferase 10 (ALT/SGPT) Alkaline Phosphatase 50 Total Creatine Kinase 34 Troponin I LESS THAN 0.02 C-Reactive Protein 8.40 B-Type Natriuretic Peptide 37 Total Protein 8.4 Albumin 2.3 Date/Time Procedure Status Source Growth 03/27/17 00:15 Aerobic Blood Culture Received Blood Peripheral Pending 03/27/17 00:15 Anaerobic Blood Culture Received Blood Peripheral Pending 03/27/17 00:07 Gram Stain Received Wound Foot Pending 03/27/17 00:07 Wound Culture Received Wound Foot Pending Result Diagram: 03/27/177 03/27/176 Imaging Last Impressions Foot X-Ray 03/27/1713 Signed Impressions: Service Date/Time: Monday, March 27, 2017 00:12 - CONCLUSION: Nonspecific severe soft tissue swelling. No acute bony abnormality demonstrated. Jorge Alberto Richard MD Chest X-Ray 03/27/1713 Signed Impressions: Service Date/Time: Monday, March 27, 2017 00:20 - CONCLUSION: Trace consolidation and pleural fluid at each lung base. Jorge Alberto Richard MD Septic Shock Reassessment Heart: Regular rate and rhythm Lungs: Clear Skin: Warm Peripheral Pulses: Bounding Right Radial Bounding Left Radial Capillary Refill: Sluggish Assessment and Plan Problem List: (1) Cellulitis of right leg ICD Code: L03.115 Status: Acute (2) Cellulitis of right foot ICD Code: L03.115 Status: Acute (3) Failure of outpatient treatment ICD Code: Z78.9 Status: Acute Assessment and Plan Assessment and plan 62-year-old male admitted secondary to cellulitis with outpatient treatment failure and chronic lymphedema Severe sepsis Clinically resolving based on most recent labs and vital signs No further IV hydration at this time as patient is at risk for fluid overload Follow clinically for any recurrence Continue to treat infection Cellulitis, right lower extremity Outpatient treatment failure Increased risk given peripheral artery disease and right lower extremity lymphedema Consult wound care Consult infectious disease Zosyn and vancomycin continued for now When necessary pain treatments When necessary IV Dilaudid with dressing changes Probiotics while on antibiotics Peripheral artery disease Right lower extremity lymphedema Contributory Continue dressing changes Monitor clinically Wound care nurse Neuropathy Continue gabapentin Hypertension Continue baseline treatments Follow blood pressure Currently stable Hyperlipidemia Continue statin Follow as an outpatient Diabetes mellitus type 2 Insulin sliding scale Diabetic diet Follow blood sugars History of Old myocardial infarction 2 History of CVA 3 History of brain aneurysm History of DVT History of Agent [place] exposure Depression No change in baseline treatments Physician Certification 2 Midnight Certification Type: Admission for Inpatient Services Order for Inpatient Services The services are ordered in accordance with Medicare regulations or non- Medicare payer requirements, as applicable. In the case of services not specified as inpatient-only, they are appropriately provided as inpatient services in accordance with the 2-midnight benchmark. Estimated LOS (days): 4 days is the estimated time the patient will need to remain in the hospital, assuming treatment plan goals are met and no additional complications. Post-Hospital Plan: Home Health Foster Johns MD Mar 27, 2017 10:31
--- NOTE | 2017-03-27 10:57 | EKG ---
Date Performed: 03/27/2017 Time Performed: 00:38:40 PTAGE: 62 years EKG: Sinus rhythm NONSPECIFIC T-WAVE ABNORMALITY BORDERLINE ECG PREVIOUS TRACING : 06/26/2016 04.04 Compared to prior tracing no significant change DOCTOR: Nuris Benoit Interpretating Date/Time 03/27/2017 10:55:53
[2017-03-27] MEDS: INSULIN ASPART SUPPLEMENTAL SCALE SQ SCH ×3 (11:03→21:00)
[2017-03-27] MEDS ORDERED: VANCOMYCIN INJ 1,000 MG in SODIUM CHLOR 0.9% 250 ML INJ 250 ML IV SCH (12:00)
[2017-03-27] MEDS ORDERED: PIPERACIL-TAZO 3.375 GM PREMIX 50 ML IV SCH (12:00)
--- NOTE | 2017-03-27 13:02 | PD.CONS ---
History of Present Illness Service Infectious disease Consult Requested By Dr. Johns Reason for Consult Evaluate patient with right lower extremity cellulitis [facility] Diagnoses: History of Present Illness Patient seen and examined. Records reviewed. Patient is a 62-year-old morbidly obese CM, presented to the hospital for further evaluation of increased drainage from his right lower extremity wounds, increasing pain and redness. Patient has chronic right lower extremity wounds, and has had problem with recurrent cellulitis. He was last here in January and at that time he was discharge on oral Keflex. Patient states that he goes to the wound care center at the [facility] at least every other week, and he has nurses coming to his house, and changing the dressing on his right lower extremity. He recently completed a course of Cipro from the [place] clinic for his right lower extremity wounds. Over the last 2-3 days, he has noted increase in drainage from his wounds, and he started noticing increased redness as well as increased pain. Patient is wheelchair bound, and does not really put any weight on his right lower extremity. He is status post left [id number] amputation. He denies any fever or chills. He has not had any complaints no cough or any sore throat. No GI or any urinary complaints. On presentation his white count was 12,000. He is afebrile. He had some mild tachycardia. Lactic acid is mildly elevated. He was admitted for possible sepsis with right lower extremity cellulitis. Infectious disease consultation has been requested to evaluate the patient. Review of Systems Constitutional: DENIES: Fever, Chills, Night Sweats Eyes: DENIES: Eye pain Ears, nose, mouth, throat: DENIES: Nasal discharge, Throat pain, Ear Pain, Running Nose Respiratory: COMPLAINS OF: Shortness of breath, DENIES: Cough, Sputum production Cardiovascular: COMPLAINS OF: Dyspnea on Exertion, Lower Extremity Edema, DENIES: Chest pain, Palpitations, Syncope Gastrointestinal: DENIES: Abdominal pain, Constipation, Diarrhea, Nausea, Vomiting, Difficulty Swallowing Genitourinary: DENIES: Hematuria, Dysuria Musculoskeletal: COMPLAINS OF: Joint Swelling Integumentary: DENIES: Rash Neurologic: DENIES: Headache, Seizures Psychiatric: DENIES: Confusion, Hallucinations Past Family Social History Allergies: Coded Allergies: Betadine (Verified Allergy, Severe, 03/26/17) Contrast Media (Verified Allergy, Severe, SHOCK, 03/26/17) Iodine (Verified Allergy, Severe, 03/26/17) MRI PRECAUTION (Verified Allergy, Severe, ANEURSYM CLIPPING, 03/26/17) Past Medical History PVD Neuropathy Morbid obesity Hypertension Hyperlipidemia Diabetes Previous [place] There is mention of previous stroke History of brain aneurysm status post clipping DVT Agent orange exposure Depression Past Surgical History Aneurysm clipping in 1990 Left AKA Cholecystectomy Appendectomy Tonsillectomy Hemorrhoidectomy Port placement Active Ordered Medications Baclofen Cardizem Neurontin Dilaudid Insulin Lactinex Percocet Zosyn Potassium Pravachol Mysoline Aldactone Vancomycin Fracture or Warfarin Family History Patient is adopted Social History Patient is , lives at home Smoker since age 11, 1 PPD Denies alcohol abuse No illicit drugs Physical Exam Vital Signs Vital Signs Date Time Temp Pulse Resp B/P Pulse Ox O2 Delivery O2 Flow Rate FiO2 03/27/17 11:58 99 18 137/60 93 Nasal Cannula 3 03/27/17 10:42 96 20 128/62 03/27/17 08:31 98 20 147/74 94 03/27/17 07:05 98 143/62 96 03/27/17 05:36 20 03/27/17 05:00 99 22 145/70 95 Nasal Cannula 2 03/27/17 01:48 95 Nasal Cannula 2 03/27/17 01:18 18 03/27/17 01:00 94 20 121/64 94 Nasal Cannula 2 03/27/17 00:40 23 92 Room Air 03/26/17 23:41 99 20 132/73 96 Room Air 03/26/17 22:46 98.7 106 16 141/78 97 Room Air Physical Exam GENERAL: Patient is a morbidly obese, well-developed CM, awake and alert, not in respiratory distress. SKIN: Warm and dry. No generalized rash, no ecchymoses and no evidence of embolic lesions. HEAD: Atraumatic. Normocephalic. No temporal wasting, or tenderness. EYES: Time conjunctiva. No petechia or hemorrhage. Pupils equal, round and reactive to light. Extraocular movements full and intact. No scleral icterus. No injection or drainage. EARS, NOSE AND THROAT: Nose without bleeding or purulent nasal discharge. No sinus tenderness. Mucous membranes pink and moist. No oral lesions noted. NECK: Trachea midline. Supple and not tender, no meningeal signs CARDIOVASCULAR: Regular rate and rhythm. No murmurs, rubs or gallops heard RESPIRATORY: Clear to auscultation. Breath sounds equal bilaterally. No rales , wheezing or rhonchi. Decreased BS at the bases. Port in R upper chest currently accessed, with no evidence of infection ABDOMEN: Soft, obese, non-tender, nondistended. Bowel sounds present and normoactive. No guarding. No rebound. No organomegaly. EXTREMITIES: He is SA/P L AKA, well healed stump. RLE: swollen, with ulcers anterior leg, and dorsum of foot, with some yellow slough, and redness around the wounds. Very swollen R foot, with yellow slough on his toes. No foul odor noted. Very tender to touch Warm, no cyanosis on toes NEUROLOGICAL: Awake and alert. Cranial nerves grossly intact. Motor grossly within normal limits. PSYCHIATRIC: Normal affect, calm and cooperative. LINE: No evidence of infection Laboratory Laboratory Tests Test 03/27/17 03/27/17 00:07 02:43 White Blood Count 12.4 Red Blood Count 4.24 Hemoglobin 10.3 Hematocrit 33.2 Mean Corpuscular Volume 78.3 Mean Corpuscular Hemoglobin 24.4 Mean Corpuscular Hemoglobin 31.2 Concent Red Cell Distribution Width 17.9 Platelet Count 357 Mean Platelet Volume 8.2 Neutrophils (%) (Auto) 70.4 Lymphocytes (%) (Auto) 21.1 Monocytes (%) (Auto) 5.3 Eosinophils (%) (Auto) 2.3 Basophils (%) (Auto) 0.9 Neutrophils # (Auto) 8.7 Lymphocytes # (Auto) 2.6 Monocytes # (Auto) 0.7 Eosinophils # (Auto) 0.3 Basophils # (Auto) 0.1 CBC Comment DIFF FINAL Differential Comment Prothrombin Time 33.5 Prothromb Time International 2.9 Ratio Activated Partial 49.3 Thromboplast Time Sodium Level 138 Potassium Level 3.6 Chloride Level 99 Carbon Dioxide Level 29.1 Anion Gap 10 Blood Urea Nitrogen 9 Creatinine 0.86 Estimat Glomerular Filtration 90 Rate Random Glucose 170 Lactic Acid Level 2.6 1.4 Calcium Level 8.8 Magnesium Level 1.9 Total Bilirubin 0.3 Aspartate Amino Transf 12 (AST/SGOT) Alanine Aminotransferase 10 (ALT/SGPT) Alkaline Phosphatase 50 Total Creatine Kinase 34 Troponin I LESS THAN 0.02 C-Reactive Protein 8.40 B-Type Natriuretic Peptide 37 Total Protein 8.4 Albumin 2.3 Date/Time Procedure Status Source Growth 03/27/17 00:15 Aerobic Blood Culture Received Blood Peripheral Pending 03/27/17 00:15 Anaerobic Blood Culture Received Blood Peripheral Pending 03/27/17 00:07 Gram Stain - Final Resulted Wound Foot 03/27/17 00:07 Wound Culture Resulted Wound Foot Pending Result Diagram: 03/27/17603/27/176 Imaging RADIOLOGY STUDIES/FILMS REVIEWED Foot X-Ray 03/27/1713 Signed Impressions: Service Date/Time: Monday, March 27, 2017 00:12 - CONCLUSION: Nonspecific severe soft tissue swelling. No acute bony abnormality demonstrated. Jorge Alberto Richard MD Chest X-Ray 03/27/1713 Signed Impressions: Service Date/Time: Monday, March 27, 2017 00:20 - CONCLUSION: Trace consolidation and pleural fluid at each lung base. Jorge Alberto Richard MD Assessment and Plan Assessment and Plan IMPRESSION Recurrent cellulitis RLE, patient with chronic LE edema, and stasis ulcers Obesity Known PVD Previous [place] RECOMMENDATION Wound care Will ask Matias Zheng to evaluate, ?debridement Change Zosyn to Cefepime - stasis ulcers can gave problem with PSAE = Cefepime has less salt load than Zosyn Continue vancomycin for GPC coverage Follow C/S and adjust Abx I will follow along with you Thank you for this consultation Discussed Condition With Discussed plan with patient Pippa Calloway MD Mar 27, 2017 13:02
[2017-03-27] MEDS: GABAPENTIN 100 MG CAP PO SCH ×2 (13:12→18:49)
[2017-03-27] MEDS: oxyCODONE/ACETAMINOPHEN 7.5 MG/325 MG TAB PO PRN ×2 (13:19→18:50)
[2017-03-27] MEDS: LACTOBACILLUS ACIDOPHILUS TAB PO SCH ×2 (13:38→18:49)
[2017-03-27] MEDS: VANCOMYCIN INJ 2,000 MG in SODIUM CHLORID 0.9% 500 ML INJ 500 ML IV SCH (13:40)
[2017-03-27] MEDS ORDERED: WARFARIN SOD 5 MG TAB PO SCH (16:00)
[2017-03-27] MEDS: CEFEPIME INJ 2,000 MG in SODIUM CHLORIDE 0.9% INJ 100 ML IV SCH (16:29)
[2017-03-27 21:02] LABS: MEAN CORPUSCULAR HGB CONC 29.8 % (32.0-36.0)
[2017-03-27] MEDS: PRAVASTATIN SOD 20 MG TAB PO SCH (21:04)
[2017-03-28] VITALS (9 sets, daily range): BP systolic 128–150; BP diastolic 63–81; PULSE 70–130; RESP 18–20; TEMP 95.6–98.4; O2SAT 89–96
[2017-03-28] MEDS: GABAPENTIN 100 MG CAP PO SCH ×4 (00:56→18:44)
[2017-03-28] MEDS: oxyCODONE/ACETAMINOPHEN 7.5 MG/325 MG TAB PO PRN ×3 (00:56→08:53)
[2017-03-28] MEDS: CEFEPIME INJ 2,000 MG in SODIUM CHLORIDE 0.9% INJ 100 ML IV SCH ×2 (00:57→13:22)
[2017-03-28] MEDS ORDERED: ONDANSETRON HCL 4 MG/2 ML VIAL IV PUSH PRN (01:30)
[2017-03-28 05:59] LABS: AUTOMATED NEUTROPHIL # 9.5 TH/MM3 (1.8-7.7); BASOPHIL # 0.2 TH/MM3 (0-0.2); BASOPHIL % 1.3 % (0.0-2.0); EOSINOPHIL # 0.2 TH/MM3 (0-0.4); HEMATOCRIT 31.3 % (39.0-51.0); HEMO FLAGS DIFF FINAL; LYMPH % 13.6 % (9.0-44.0); LYMPHOCYTE # 1.7 TH/MM3 (1.0-4.8); MEAN CORPUSCULAR HEMOGLOBIN 24.1 PG (27.0-34.0); MONO % 5.5 % (0.0-8.0); NEUT % 77.6 % (16.0-70.0); PLATELET COUNT 314 TH/MM3 (150-450); RED BLOOD COUNT 3.87 MIL/MM3 (4.50-5.90); RED CELL DISTRIBUTION WIDTH 18.3 % (11.6-17.2); WHITE BLOOD COUNT 12.2 TH/MM3 (4.0-11.0)
[2017-03-28 06:05] LABS: INTERNATIONAL NORMALIZED RATIO 3.9 RATIO; PROTHROMBIN TIME - PATIENT 46.2 SEC (9.8-11.6)
[2017-03-28] MEDS: INSULIN ASPART SUPPLEMENTAL SCALE SQ SCH ×4 (06:21→21:00)
[2017-03-28 06:27] LABS: BICARBONATE 31.2 MEQ/L (21.0-32.0); POTASSIUM 4.4 MEQ/L (3.5-5.1)
[2017-03-28] MEDS: PRIMIDONE 50 MG TAB PO SCH ×3 (08:51→18:43)
[2017-03-28] MEDS: BACLOFEN 10 MG TAB PO SCH ×3 (08:52→18:44)
[2017-03-28] MEDS: LACTOBACILLUS ACIDOPHILUS TAB PO SCH ×3 (08:52→18:43)
[2017-03-28] MEDS: VENLAFAXINE HCL XR 75 MG CAP PO SCH (08:52)
[2017-03-28] MEDS: POTASSIUM CHLORIDE 10 MEQ CAP PO SCH (08:52)
[2017-03-28] MEDS: SPIRONOLACTONE 25 MG TAB PO SCH (08:52)
[2017-03-28] MEDS: DILTIAZEM-CD 240 MG CAP ER PO SCH (08:52)
[2017-03-28] MEDS: SODIUM CHLORIDE 0.9% FLUSH 10 ML FLUSH IV FLUSH SCH ×2 (08:57→22:31)
[2017-03-28] MEDS ORDERED: ENOXAPARIN SODIUM 40 MG/0.4 ML SYRINGE SQ SCH (11:30)
--- NOTE | 2017-03-28 11:36 | HHI.PR ---
Subjective Remarks Slight improvement overnight. Patient has no new complaints. Current pain treatment is not holding his pain. Objective Vital Signs Date Time Temp Pulse Resp B/P Pulse Ox O2 Delivery O2 Flow Rate FiO2 03/28/17 08:00 96.6 95 19 128/63 93 03/28/17 04:00 95.6 89 20 146/73 90 03/28/17 02:39 91 03/28/17 00:00 97.0 130 18 132/81 95 03/27/17 20:00 97.7 92 20 134/73 93 03/27/17 16:07 95.8 89 20 120/63 95 03/27/17 13:14 97.8 98 18 133/56 96 Nasal Cannula 2 03/27/17 11:58 99 18 137/60 93 Nasal Cannula 3 I/O 03/27/17 03/27/17 03/27/17 03/28/17 03/28/17 03/28/17 07:00 15:00 23:00 07:00 15:00 23:00 Output Total 300 ml 650 ml Balance -300 ml -650 ml Output Urine Total 300 ml 650 ml Result Diagram: 03/28/17 0500 03/28/17 0500 Objective Remarks GENERAL: NAD, A&Ox3 HEAD: Normocephalic. NECK: Supple, trachea midline. No lymphadenopathy. EYES: No scleral icterus. No injection or drainage. CARDIOVASCULAR: Regular rate and rhythm without murmurs, gallops, or rubs. RESPIRATORY: Breath sounds equal bilaterally. No accessory muscle use. GASTROINTESTINAL: Abdomen soft, non-tender, nondistended. MUSCULOSKELETAL: No cyanosis, or edema. Left BKA (chronic). Right lower extremity is erythematous and bandaged with a missing nail on the first digit. SKIN: Warm and dry. NEURO: No focal neurological deficitis. A/P Problem List: (1) Failure of outpatient treatment ICD Code: Z78.9 (2) Cellulitis of right foot ICD Code: L03.115 (3) Cellulitis of right leg ICD Code: L03.115 (4) Venous stasis dermatitis of right lower extremity ICD Code: I87.2 (5) Cellulitis ICD Code: L03.90 (6) Wound infection ICD Code: T14.8 (7) Diabetes mellitus type 2, uncontrolled ICD Code: E11.9 (8) Morbidly obese ICD Code: E66.01 (9) Obesity (BMI 30-39.9) ICD Code: E66.9 (10) Tobacco abuse ICD Code: Z72.0 (11) Acquired lymphedema ICD Code: I89.0 (12) COPD (chronic obstructive pulmonary disease) ICD Code: J44.9 Assessment and Plan Assessment and plan 62-year-old male admitted secondary to cellulitis with outpatient treatment failure and chronic lymphedema. Slight improvement overnight. Antibiotics will need to be continued. Severe sepsis Sepsis resolved Follow clinically for any recurrence Continue to treat infection Cellulitis, right lower extremity Outpatient treatment failure Increased risk given peripheral artery disease and right lower extremity lymphedema Consult wound care Consult infectious disease Zosyn changed to cefepime Continue cefepime and vancomycin continued for now When necessary pain treatments When necessary IV Dilaudid with dressing changes Probiotics while on antibiotics Peripheral artery disease Right lower extremity lymphedema Contributory Continue dressing changes Monitor clinically Wound care nurse Neuropathy Continue gabapentin Hypertension Continue baseline treatments Follow blood pressure Currently stable Hyperlipidemia Continue statin Follow as an outpatient Diabetes mellitus type 2 Insulin sliding scale Diabetic diet Follow blood sugars History of Old myocardial infarction 2 History of CVA 3 History of brain aneurysm History of DVT History of Agent [place] exposure Depression No change in baseline treatments DVT prophylaxis Lovenox Discharge planning Infection must be under control prior to consideration of discharge Foster Johns MD Mar 28, 2017 11:36
--- NOTE | 2017-03-28 12:34 | PD.WOU.CON ---
Patient Intake Chief Complaint Right lower extremity ulcerations Consult Requested by Dr. Cano Reason for Consult Evaluation and treatment of right venous stasis wounds [facility] History of Present Illness Patient is a 62-year-old male who I know from prior admission. 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 He presents with venous insufficiency and venous stasis ulcerations and cellulitis of the right lower extremity. Patient drinks a large amounts of fluid. He continues to smoke. He has been seen at the wound center at the [facility] but has home nursing coming out to do his dressing changes. Coded Allergies: Betadine (Verified Allergy, Severe, 03/26/17) Contrast Media (Verified Allergy, Severe, SHOCK, 03/26/17) Iodine (Verified Allergy, Severe, 03/26/17) MRI PRECAUTION (Verified Allergy, Severe, ANEURSYM CLIPPING, 03/26/17) Preferred Language to Discuss: Occitan Barriers to Learning: None Teaching Method: Discussion Vital Signs Date Time Temp Pulse Resp B/P Pulse Ox O2 Delivery O2 Flow Rate FiO2 03/28/17 08:00 96.6 95 19 128/63 93 03/28/17 04:00 95.6 89 20 146/73 90 03/28/17 02:39 91 03/28/17 00:00 97.0 130 18 132/81 95 03/27/17 20:00 97.7 92 20 134/73 93 03/27/17 16:07 95.8 89 20 120/63 95 03/27/17 13:14 97.8 98 18 133/56 96 Nasal Cannula 2 Pain scale used: 0-10 numeric scale Pain score: 5 Medications Current Medications Piperacillin Sod/ Tazobactam Sod 50 ml @ 100 mls/hr ONCE ONCE IV Last administered on 03/27/17 00:39; Start 03/27/17 at 00:30; Stop 03/27/17 at 00:59 ; Status DC Vancomycin HCl/ Sodium Chloride (Vancomycin Inj/ NS 250 ml Inj) 250 ml @ 250 mls/hr ONCE ONCE IV Last administered on 03/27/17 01:18; Start 03/27/17 at 00 :30; Stop 03/27/17 at 01:29; Status DC Morphine Sulfate (Morphine Inj) 4 mg ONCE ONCE IV PUSH Last administered on 00:39; Start 03/27/17 at 00:30; Stop 03/27/17 at 00:31; Status DC Ondansetron HCl (Zofran Inj) 4 mg ONCE ONCE IV PUSH Last administered on 00:38; Start 03/27/17 at 00:30; Stop 03/27/17 at 00:31; Status DC Morphine Sulfate 8 mg 8 mg STK-MED ONCE .ROUTE ; Start 03/27/17 at 00:22; Stop 03/27/17 at 00:23; Status DC Sodium Chloride (NS 500 ml Inj) 500 ml @ 500 mls/hr BOLUS ONCE IV Last administered on 03/27/17 01:53; Start 03/27/17 at 01:30; Stop 03/27/17 at 02:29 ; Status DC Sodium Chloride (NS Flush) 2 ml UNSCH PRN IV FLUSH FLUSH AFTER USING IV ACCESS ; Start 03/27/17 at 01:45 Sodium Chloride (NS Flush) 2 ml BID IV FLUSH Last administered on 03/28/17 08: 57; Start 03/27/17 at 09:00 Naloxone HCl (Narcan Inj) 0.4 mg UNSCH PRN IV SEE LABEL COMMENTS; Start at 01:45 Morphine Sulfate (Morphine Inj) 2 mg Q3H PRN IV PUSH paiFLUSH AFTER USING IV ACn >5 Last administered on 03/27/17 05:01; Start 03/27/17 at 01:45; Stop 03/27 at 10:29; Status DC Dextrose (D50w (Vial) Inj) 50 ml UNSCH PRN IV HYPOGLYCEMIA-SEE COMMENTS; Start 03/27/17 at 01:45 Glucagon (Glucagon Inj) 1 mg UNSCH PRN OTHER HYPOGLYCEMIA-SEE COMMENTS; Start 03/27/17 at 01:45 Insulin Aspart (NovoLOG SUPPLEMENTAL SCALE) 1 ACHS SLIDING SCALE SQ ; Start 09/01 at 07:00; Stop 03/27/17 at 09:21; Status DC Baclofen (Lioresal) 10 mg TID PO Last administered on 03/28/17 08:52; Start at 10:00 Diltiazem HCl (Cardizem Cd) 240 mg DAILY PO Last administered on 03/28/17 08: 52; Start 03/27/17 at 09:30 Gabapentin (Neurontin) 100 mg Q6HR PO Last administered on 03/28/17 05:13; Start 03/27/17 at 12:00 Potassium Chloride (KCl) 10 meq DAILY PO Last administered on 03/28/17 08:52; Start 03/27/17 at 09:30 Pravastatin Sodium (Pravachol) 20 mg HS PO Last administered on 03/27/17 21:04 ; Start 03/27/17 at 21:00 Primidone (Mysoline) 50 mg TID PO Last administered on 03/28/17 08:51; Start 03/27/17 at 10:00 Spironolactone (Aldactone) 25 mg DAILY PO Last administered on 03/28/17 08:52 ; Start 03/27/17 at 10:00 Venlafaxine HCl (Effexor Xr) 300 mg DAILY PO Last administered on 03/28/17 08: 52; Start 03/27/17 at 10:00 Warfarin Sodium (Coumadin) 5 mg DAILY@1600 PO Last administered on 03/27/17 16 :36; Start 03/27/17 at 16:00; Status Hold Dextrose (D50w (Vial) Inj) 50 ml UNSCH PRN IV HYPOGLYCEMIA-SEE COMMENTS; Start 03/27/17 at 08:15; Status Cancel Glucagon (Glucagon Inj) 1 mg UNSCH PRN OTHER HYPOGLYCEMIA-SEE COMMENTS; Start 03/27/17 at 08:15; Status UNV Insulin Aspart (NovoLOG SUPPLEMENTAL SCALE) 1 ACHS SLIDING SCALE SQ ; Start 09/01 at 11:00 Oxycodone/ Acetaminophen (Percocet 7.5-325 Mg) 1 tab Q4H PRN PO Pain 4 to 10 Last administered on 03/28/17 08:53; Start 03/27/17 at 10:30; Stop 03/28/17 at 11:31; Status DC Hydromorphone HCl (Dilaudid Pf Inj) 1 mg DAILY PRN IV PUSH Prior to Dressing Change; Start 03/27/17 at 10:30 Lactobacillus Acidophilus 1 tab 1 tab TID PO Last administered on 03/28/17 08: 52; Start 03/27/17 at 13:00 Piperacillin Sod/ Tazobactam Sod 50 ml @ 100 mls/hr Q8H IV ; Start 03/27/17 at 12:00; Stop 03/27/17 at 12:47; Status DC Vancomycin HCl 1000 mg/Sodium Chloride 250 ml @ 250 mls/hr Q12H IV ; Start 09/01 at 12:00; Status UNV Pharmacy Profile Note (Vancomycin Consult Pharmacy) 0 ml @ 0 mls/hr UNSCH OTHER ; Start 03/27/17 at 10:30 Morphine Sulfate 8 mg 8 mg STK-MED ONCE .ROUTE ; Start 03/27/17 at 11:20; Stop 03/27/17 at 11:21; Status DC Vancomycin HCl/ Sodium Chloride (Vancomycin Inj/ NS 500 ml Inj) 520 ml @ 250 mls/hr Q24H IV Last administered on 03/27/17 13:40; Start 03/27/17 at 14:00 Miscellaneous Information SPECIFIC LAB TO BE DRAWN:VANCOMYCIN TROUGH DATE TO... ONCE ONCE .XX ; Start 03/30/17 at 13:45; Stop 03/30/17 at 13:46 Cefepime HCl/ Sodium Chloride (Maxipime Inj/NS Inj) 100 ml @ 200 mls/hr Q12H IV Last administered on 03/28/17 00:57; Start 03/27/17 at 14:00 Ondansetron HCl (Zofran Inj) 4 mg Q6H PRN IV PUSH nasuea Last administered on 01:42; Start 03/28/17 at 01:30 Oxycodone/ Acetaminophen (Percocet 10-325 Mg) 1 tab Q4H PRN PO Pain 4 to 10; Start 03/28/17 at 11:30 Enoxaparin Sodium (Lovenox Inj) 40 mg Q24H SQ ; Start 03/28/17 at 11:30; Status UNV Past, Family & Social History Past Medical History Endocrine: REPORTS HX OF: Diabetes mellitus Respiratory: REPORTS HX OF: COPD Cardiovascular: REPORTS HX OF: Heart failure, Hypertension Past Surgical History Musculoskeletal: REPORTS HX OF: Other musculoskeletal srg (above-knee amputation left lower extremity) Review of Systems Notes No changes since his previous visit Cardiovascular: COMPLAINS OF: Uses O2 use at home, Swelling legs / ankles Wound Assessment Vascular Assessment R Dorsails Pedis: Doppler R Posterior Tibial: Doppler Extremities Evaluation: Edema Right Wound Information - Wound One Wound Location: multiple open areas of the right lower extremity Wound Type: Venous Disease Classification: FT- full thickness Exudate: High Exudate Type: Yellow Debridement: No Fibrin Amount: Mild Granulation Tissue Color: None Granulation Tissue Texture: N/A Periwound Appearance: FINDINGS: Cellulitis Dressing Notes: Optifoam Gentle AG plus Manuelito bandage Lab and Radiology Results Laboratory Laboratory Tests Test 03/27/17 03/28/17 00:07 05:00 White Blood Count 12.4 TH/MM3 12.2 TH/MM3 Red Blood Count 4.24 MIL/MM3 3.87 MIL/MM3 Hemoglobin 10.3 GM/DL 9.3 GM/DL Hematocrit 33.2 % 31.3 % Mean Corpuscular Volume 78.3 FL 81.0 FL Mean Corpuscular Hemoglobin 24.4 PG 24.1 PG Mean Corpuscular Hemoglobin 31.2 % 29.8 % Concent Red Cell Distribution Width 17.9 % 18.3 % Platelet Count 357 TH/MM3 314 TH/MM3 Mean Platelet Volume 8.2 FL 7.8 FL Neutrophils (%) (Auto) 70.4 % 77.6 % Lymphocytes (%) (Auto) 21.1 % 13.6 % Monocytes (%) (Auto) 5.3 % 5.5 % Eosinophils (%) (Auto) 2.3 % 2.0 % Basophils (%) (Auto) 0.9 % 1.3 % Neutrophils # (Auto) 8.7 TH/MM3 9.5 TH/MM3 Lymphocytes # (Auto) 2.6 TH/MM3 1.7 TH/MM3 Monocytes # (Auto) 0.7 TH/MM3 0.7 TH/MM3 Eosinophils # (Auto) 0.3 TH/MM3 0.2 TH/MM3 Basophils # (Auto) 0.1 TH/MM3 0.2 TH/MM3 CBC Comment DIFF FINAL DIFF FINAL Differential Comment Laboratory Tests Test 03/27/17 03/27/17 03/28/17 00:07 02:43 05:00 Sodium Level 138 MEQ/L 137 MEQ/L Potassium Level 3.6 MEQ/L 4.4 MEQ/L Chloride Level 99 MEQ/L 102 MEQ/L Carbon Dioxide Level 29.1 MEQ/L 31.2 MEQ/L Anion Gap 10 MEQ/L 4 MEQ/L Blood Urea Nitrogen 9 MG/DL 10 MG/DL Creatinine 0.86 MG/DL 0.60 MG/DL Estimat Glomerular Filtration 90 ML/MIN 136 ML/MIN Rate Random Glucose 170 MG/DL 118 MG/DL Lactic Acid Level 2.6 mmol/L 1.4 mmol/L Calcium Level 8.8 MG/DL 8.3 MG/DL Magnesium Level 1.9 MG/DL Total Bilirubin 0.3 MG/DL Aspartate Amino Transf 12 U/L (AST/SGOT) Alanine Aminotransferase 10 U/L (ALT/SGPT) Alkaline Phosphatase 50 U/L Total Creatine Kinase 34 U/L Troponin I LESS THAN 0.02 NG/ML C-Reactive Protein 8.40 MG/DL B-Type Natriuretic Peptide 37 PG/ML Total Protein 8.4 GM/DL Albumin 2.3 GM/DL Microbiology Date/Time Procedure Status Source Growth 03/27/17 00:07 Aerobic Blood Culture - Preliminary Resulted Blood Peripheral NO GROWTH IN 1 DAY 03/27/17 00:07 Anaerobic Blood Culture - Preliminary Resulted Blood Peripheral NO GROWTH IN 1 DAY 03/27/17 00:07 Gram Stain - Final Resulted Wound Foot 03/27/17 00:07 Wound Culture - Preliminary Resulted Gram Negative Devan 03/27/17 00:15 Aerobic Blood Culture - Preliminary Resulted Blood Peripheral Staph Sp Coagulase Negative 03/27/17 00:15 Anaerobic Blood Culture - Preliminary Resulted Blood Peripheral NO GROWTH IN 1 DAY Radiology Last Impressions Foot X-Ray 03/27/1713 Signed Impressions: Service Date/Time: Monday, March 27, 2017 00:12 - CONCLUSION: Nonspecific severe soft tissue swelling. No acute bony abnormality demonstrated. Jorge Alberto Richard MD Chest X-Ray 03/27/1713 Signed Impressions: Service Date/Time: Monday, March 27, 2017 00:20 - CONCLUSION: Trace consolidation and pleural fluid at each lung base. Jorge Alberto Richard MD Assessment/Plan Problem List: (1) Infection associated with lymphedema Status: Acute (2) Cellulitis of right leg Status: Acute (3) Acquired lymphedema Status: Chronic (4) Tobacco abuse Status: Chronic (5) Morbidly obese Status: Chronic (6) Diabetes mellitus type 2, uncontrolled Status: Chronic Additional Plans & Procedures PLAN: Change his dressings to Optifoam gentle AG and Manuelito bandages daily. Discussed fluid management with the patient. He refuses to reduce his fluid intake. He really refuses to stop smoking. He refuses to get his blood sugars under good control. Patient can follow-up at the [place] [facility]. Problem Qualifiers (1) Diabetes mellitus type 2, uncontrolled: Qualified Code: E11.8 - Uncontrolled type 2 diabetes mellitus with complication , without long-term current use of insulin Florin Zheng DPM Mar 28, 2017 12:34
--- NOTE | 2017-03-28 12:48 | HHI.IDPN ---
Subjective Subjective Allergies: Coded Allergies: Betadine (Verified Allergy, Severe, 03/26/17) Contrast Media (Verified Allergy, Severe, SHOCK, 03/26/17) Iodine (Verified Allergy, Severe, 03/26/17) MRI PRECAUTION (Verified Allergy, Severe, ANEURSYM CLIPPING, 03/26/17) Objective . Pippa Calloway MD Mar 28, 2017 12:48 denies any fever or chills. He has not had any complaints no cough or any sore throat. No GI or any urinary complaints. Antibiotics PVD Neuropathy Morbid obesity Hypertension Hyperlipidemia Diabetes Previous [place] There is mention of previous stroke History of brain aneurysm status post clipping DVT Agent orange exposure Depression Past Surgical History Aneurysm clipping in 1990 Left AKA Cholecystectomy Appendectomy Tonsillectomy Hemorrhoidectomy Port placement Allergies: Coded Allergies: Betadine (Verified Allergy, Severe, 03/26/17) Contrast Media (Verified Allergy, Severe, SHOCK, 03/26/17) Iodine (Verified Allergy, Severe, 03/26/17) MRI PRECAUTION (Verified Allergy, Severe, ANEURSYM CLIPPING, 03/26/17) Objective . Vital Signs Date Time Temp Pulse Resp B/P Pulse Ox O2 Delivery O2 Flow Rate FiO2 03/28/17 08:00 96.6 95 19 128/63 93 03/28/17 04:00 95.6 89 20 146/73 90 03/28/17 02:39 91 03/28/17 00:00 97.0 130 18 132/81 95 03/27/17 20:00 97.7 92 20 134/73 93 03/27/17 16:07 95.8 89 20 120/63 95 03/27/17 13:14 97.8 98 18 133/56 96 Nasal Cannula 2 03/27/17 03/27/17 03/28/17 15:00 23:00 07:00 Output Total 300 ml 650 ml Balance -300 ml -650 ml Output Urine Total 300 ml 650 ml . Laboratory Tests Test 03/27/17 03/28/17 00:07 05:00 White Blood Count 12.4 TH/MM3 12.2 TH/MM3 Red Blood Count 4.24 MIL/MM3 3.87 MIL/MM3 Hemoglobin 10.3 GM/DL 9.3 GM/DL Hematocrit 33.2 % 31.3 % Mean Corpuscular Volume 78.3 FL 81.0 FL Mean Corpuscular Hemoglobin 24.4 PG 24.1 PG Mean Corpuscular Hemoglobin 31.2 % 29.8 % Concent Red Cell Distribution Width 17.9 % 18.3 % Platelet Count 357 TH/MM3 314 TH/MM3 Mean Platelet Volume 8.2 FL 7.8 FL Neutrophils (%) (Auto) 70.4 % 77.6 % Lymphocytes (%) (Auto) 21.1 % 13.6 % Monocytes (%) (Auto) 5.3 % 5.5 % Eosinophils (%) (Auto) 2.3 % 2.0 % Basophils (%) (Auto) 0.9 % 1.3 % Neutrophils # (Auto) 8.7 TH/MM3 9.5 TH/MM3 Lymphocytes # (Auto) 2.6 TH/MM3 1.7 TH/MM3 Monocytes # (Auto) 0.7 TH/MM3 0.7 TH/MM3 Eosinophils # (Auto) 0.3 TH/MM3 0.2 TH/MM3 Basophils # (Auto) 0.1 TH/MM3 0.2 TH/MM3 CBC Comment DIFF FINAL DIFF FINAL Differential Comment Laboratory Tests Test 03/27/17 03/27/17 03/28/17 00:07 02:43 05:00 Sodium Level 138 MEQ/L 137 MEQ/L Potassium Level 3.6 MEQ/L 4.4 MEQ/L Chloride Level 99 MEQ/L 102 MEQ/L Carbon Dioxide Level 29.1 MEQ/L 31.2 MEQ/L Anion Gap 10 MEQ/L 4 MEQ/L Blood Urea Nitrogen 9 MG/DL 10 MG/DL Creatinine 0.86 MG/DL 0.60 MG/DL Estimat Glomerular Filtration 90 ML/MIN 136 ML/MIN Rate Random Glucose 170 MG/DL 118 MG/DL Lactic Acid Level 2.6 mmol/L 1.4 mmol/L Calcium Level 8.8 MG/DL 8.3 MG/DL Magnesium Level 1.9 MG/DL Total Bilirubin 0.3 MG/DL Aspartate Amino Transf 12 U/L (AST/SGOT) Alanine Aminotransferase 10 U/L (ALT/SGPT) Alkaline Phosphatase 50 U/L Total Creatine Kinase 34 U/L Troponin I LESS THAN 0.02 NG/ML C-Reactive Protein 8.40 MG/DL B-Type Natriuretic Peptide 37 PG/ML Total Protein 8.4 GM/DL Albumin 2.3 GM/DL Microbiology Date/Time Procedure Status Source Growth 03/27/17 00:07 Aerobic Blood Culture - Preliminary Resulted Blood Peripheral NO GROWTH IN 1 DAY 03/27/17 00:07 Anaerobic Blood Culture - Preliminary Resulted Blood Peripheral NO GROWTH IN 1 DAY 03/27/17 00:07 Gram Stain - Final Resulted Wound Foot 03/27/17 00:07 Wound Culture - Preliminary Resulted Gram Negative Devan 03/27/17 00:15 Aerobic Blood Culture - Preliminary Resulted Blood Peripheral Staph Sp Coagulase Negative 03/27/17 00:15 Anaerobic Blood Culture - Preliminary Resulted Blood Peripheral NO GROWTH IN 1 DAY Pippa Calloway MD Mar 28, 2017 12:48
--- NOTE | 2017-03-28 12:59 | HHI.IDPN ---
Subjective Subjective Remarks Patient is a 62-year-old morbidly obese CM, presented to the hospital for further evaluation of increased drainage from his right lower extremity wounds, increasing pain and redness. Patient has chronic right lower extremity wounds, and has had problem with recurrent cellulitis. He was last here in January and at that time he was discharge on oral Keflex. Patient states that he goes to the wound care center at the [facility] at least every other week, and he has nurses coming to his house, and changing the dressing on his right lower extremity. He recently completed a course of Cipro from the [place] clinic for his right lower extremity wounds. Over the last 2-3 days, he has noted increase in drainage from his wounds, and he started noticing increased redness as well as increased pain. Patient is wheelchair bound, and does not really put any weight on his right lower extremity. He is status post left [id number] amputation. He denies any fever or chills. He has not had any complaints no cough or any sore throat. No GI or any urinary complaints. Notes reviewed D/W Dr Norm Montoya ok One with Coag Neg Staph Wound C/S with GNR Not very compliant with edema control, fluid intake, diet Antibiotics Cefepime Vancomycin Lines PIV Past Medical History PVD Neuropathy Morbid obesity Hypertension Hyperlipidemia Diabetes Previous [place] There is mention of previous stroke History of brain aneurysm status post clipping DVT Agent orange exposure Depression Past Surgical History Aneurysm clipping in 1990 Left AKA Cholecystectomy Appendectomy Tonsillectomy Hemorrhoidectomy Port placement Allergies: Coded Allergies: Betadine (Verified Allergy, Severe, 03/26/17) Contrast Media (Verified Allergy, Severe, SHOCK, 03/26/17) Iodine (Verified Allergy, Severe, 03/26/17) MRI PRECAUTION (Verified Allergy, Severe, ANEURSYM CLIPPING, 03/26/17) Objective . Vital Signs Date Time Temp Pulse Resp B/P Pulse Ox O2 Delivery O2 Flow Rate FiO2 03/28/17 08:00 96.6 95 19 128/63 93 03/28/17 04:00 95.6 89 20 146/73 90 03/28/17 02:39 91 03/28/17 00:00 97.0 130 18 132/81 95 03/27/17 20:00 97.7 92 20 134/73 93 03/27/17 16:07 95.8 89 20 120/63 95 7/12/17 13:14 97.8 98 18 133/56 96 Nasal Cannula 2 03/27/17 03/27/17 03/28/17 15:00 23:00 07:00 Output Total 300 ml 650 ml Balance -300 ml -650 ml Output Urine Total 300 ml 650 ml . Laboratory Tests Test 03/27/17 03/28/17 00:07 05:00 White Blood Count 12.4 TH/MM3 12.2 TH/MM3 Red Blood Count 4.24 MIL/MM3 3.87 MIL/MM3 Hemoglobin 10.3 GM/DL 9.3 GM/DL Hematocrit 33.2 % 31.3 % Mean Corpuscular Volume 78.3 FL 81.0 FL Mean Corpuscular Hemoglobin 24.4 PG 24.1 PG Mean Corpuscular Hemoglobin 31.2 % 29.8 % Concent Red Cell Distribution Width 17.9 % 18.3 % Platelet Count 357 TH/MM3 314 TH/MM3 Mean Platelet Volume 8.2 FL 7.8 FL Neutrophils (%) (Auto) 70.4 % 77.6 % Lymphocytes (%) (Auto) 21.1 % 13.6 % Monocytes (%) (Auto) 5.3 % 5.5 % Eosinophils (%) (Auto) 2.3 % 2.0 % Basophils (%) (Auto) 0.9 % 1.3 % Neutrophils # (Auto) 8.7 TH/MM3 9.5 TH/MM3 Lymphocytes # (Auto) 2.6 TH/MM3 1.7 TH/MM3 Monocytes # (Auto) 0.7 TH/MM3 0.7 TH/MM3 Eosinophils # (Auto) 0.3 TH/MM3 0.2 TH/MM3 Basophils # (Auto) 0.1 TH/MM3 0.2 TH/MM3 CBC Comment DIFF FINAL DIFF FINAL Differential Comment Laboratory Tests Test 03/27/17 03/27/17 03/28/17 00:07 02:43 05:00 Sodium Level 138 MEQ/L 137 MEQ/L Potassium Level 3.6 MEQ/L 4.4 MEQ/L Chloride Level 99 MEQ/L 102 MEQ/L Carbon Dioxide Level 29.1 MEQ/L 31.2 MEQ/L Anion Gap 10 MEQ/L 4 MEQ/L Blood Urea Nitrogen 9 MG/DL 10 MG/DL Creatinine 0.86 MG/DL 0.60 MG/DL Estimat Glomerular Filtration 90 ML/MIN 136 ML/MIN Rate Random Glucose 170 MG/DL 118 MG/DL Lactic Acid Level 2.6 mmol/L 1.4 mmol/L Calcium Level 8.8 MG/DL 8.3 MG/DL Magnesium Level 1.9 MG/DL Total Bilirubin 0.3 MG/DL Aspartate Amino Transf 12 U/L (AST/SGOT) Alanine Aminotransferase 10 U/L (ALT/SGPT) Alkaline Phosphatase 50 U/L Total Creatine Kinase 34 U/L Troponin I LESS THAN 0.02 NG/ML C-Reactive Protein 8.40 MG/DL B-Type Natriuretic Peptide 37 PG/ML Total Protein 8.4 GM/DL Albumin 2.3 GM/DL Microbiology Date/Time Procedure Status Source Growth 03/27/17 00:07 Aerobic Blood Culture - Preliminary Resulted Blood Peripheral NO GROWTH IN 1 DAY 03/27/17 00:07 Anaerobic Blood Culture - Preliminary Resulted Blood Peripheral NO GROWTH IN 1 DAY 03/27/17 00:07 Gram Stain - Final Resulted Wound Foot 03/27/17 00:07 Wound Culture - Preliminary Resulted Gram Negative Devan 03/27/17 00:15 Aerobic Blood Culture - Preliminary Resulted Blood Peripheral Staph Sp Coagulase Negative 03/27/17 00:15 Anaerobic Blood Culture - Preliminary Resulted Blood Peripheral NO GROWTH IN 1 DAY Imaging Last Impressions Foot X-Ray 03/27/1713 Signed Impressions: Service Date/Time: Monday, March 27, 2017 00:12 - CONCLUSION: Nonspecific severe soft tissue swelling. No acute bony abnormality demonstrated. Jorge Alberto Richard MD Chest X-Ray 03/27/1713 Signed Impressions: Service Date/Time: Monday, March 27, 2017 00:20 - CONCLUSION: Trace consolidation and pleural fluid at each lung base. Jorge Alberto Richard MD Physical Exam GENERAL: Patient is a morbidly obese, well-developed CM, awake and alert, not in respiratory distress. SKIN: Warm and dry. No generalized rash, no ecchymoses and no evidence of embolic lesions. HEAD: Atraumatic. Normocephalic. No temporal wasting, or tenderness. EYES: Brimley conjunctiva. No petechia or hemorrhage. Pupils equal, round and reactive to light. Extraocular movements full and intact. No scleral icterus. No injection or drainage. EARS, NOSE AND THROAT: Nose without bleeding or purulent nasal discharge. No sinus tenderness. Mucous membranes pink and moist. No oral lesions noted. NECK: Trachea midline. Supple and not tender, no meningeal signs CARDIOVASCULAR: Regular rate and rhythm. No murmurs, rubs or gallops heard RESPIRATORY: Clear to auscultation. Breath sounds equal bilaterally. No rales , wheezing or rhonchi. Decreased BS at the bases. Port in R upper chest currently accessed, with no evidence of infection ABDOMEN: Soft, obese, non-tender, nondistended. Bowel sounds present and normoactive. No guarding. No rebound. No organomegaly. EXTREMITIES: He is SA/P L AKA, well healed stump. RLE: swollen, with ulcers anterior leg, and dorsum of foot, with some yellow slough, and redness around the wounds. swollen R foot, with yellow slough on his toes. No foul odor noted. Very tender to touch. Warm, no cyanosis on toes NEUROLOGICAL: Non-focal. PSYCHIATRIC: Normal affect, calm and cooperative. LINE: No evidence of infection Assessment & Plan Remarks IMPRESSION Recurrent cellulitis RLE, patient with chronic LE edema, and stasis ulcers Obesity Known PVD Previous [place] One (+) BC with Coag Negg Staph, likely contaminant RECOMMENDATION Wound care Continue Cefepime Continue Vancomycin Follow C/S, and should be able to switch to oral Abx Edema control is a major problem with this patient I will follow along with you D/W Pippa Caicedo MD Mar 28, 2017 12:59
[2017-03-28] MEDS: HYDROmorphone HCL PF 1 MG/ML VIAL IV PUSH PRN (13:25)
[2017-03-28] MEDS: oxyCODONE/ACETAMINOPHEN 10 MG/325 MG TAB PO PRN ×2 (15:42→22:36)
[2017-03-28] MEDS: VANCOMYCIN INJ 2,000 MG in SODIUM CHLORID 0.9% 500 ML INJ 500 ML IV SCH (15:42)
[2017-03-28 21:08] LABS: MEAN CORPUSCULAR HGB CONC 29.4 % (32.0-36.0)
[2017-03-28] MEDS: PRAVASTATIN SOD 20 MG TAB PO SCH (22:30)
[2017-03-29] VITALS (8 sets, daily range): BP systolic 117–151; BP diastolic 53–78; PULSE 71–87; RESP 16–20; TEMP 95.4–96.5; O2SAT 90–96
[2017-03-29] MEDS: GABAPENTIN 100 MG CAP PO SCH ×4 (01:12→18:32)
[2017-03-29] MEDS: CEFEPIME INJ 2,000 MG in SODIUM CHLORIDE 0.9% INJ 100 ML IV SCH ×2 (01:13→16:11)
[2017-03-29] MEDS: oxyCODONE/ACETAMINOPHEN 10 MG/325 MG TAB PO PRN ×3 (02:18→20:41)
[2017-03-29] MEDS: INSULIN ASPART SUPPLEMENTAL SCALE SQ SCH ×4 (06:16→21:00)
[2017-03-29] MEDS: HYDROmorphone HCL PF 1 MG/ML VIAL IV PUSH PRN (06:20)
[2017-03-29] MEDS: SODIUM CHLORIDE 0.9% FLUSH 10 ML FLUSH IV FLUSH SCH ×2 (10:10→20:48)
[2017-03-29] MEDS: VENLAFAXINE HCL XR 75 MG CAP PO SCH (10:11)
[2017-03-29] MEDS: PRIMIDONE 50 MG TAB PO SCH ×3 (10:11→18:32)
[2017-03-29] MEDS: LACTOBACILLUS ACIDOPHILUS TAB PO SCH ×3 (10:11→18:32)
[2017-03-29] MEDS: BACLOFEN 10 MG TAB PO SCH ×3 (10:11→18:32)
[2017-03-29] MEDS: DILTIAZEM-CD 240 MG CAP ER PO SCH (10:11)
[2017-03-29] MEDS: POTASSIUM CHLORIDE 10 MEQ CAP PO SCH (10:12)
[2017-03-29] MEDS: SPIRONOLACTONE 25 MG TAB PO SCH (10:12)
[2017-03-29 12:57] LABS: HEMATOCRIT 31.1 % (39.0-51.0); MEAN CELL VOLUME 81.7 FL (80.0-100.0); PLATELET COUNT 309 TH/MM3 (150-450); RED CELL DISTRIBUTION WIDTH 18.5 % (11.6-17.2); REVIEW FLAG FINAL; WHITE BLOOD COUNT 11.5 TH/MM3 (4.0-11.0)
[2017-03-29 13:19] LABS: POTASSIUM 4.1 MEQ/L (3.5-5.1)
[2017-03-29] MEDS: VANCOMYCIN INJ 2,000 MG in SODIUM CHLORID 0.9% 500 ML INJ 500 ML IV SCH (14:00)
--- NOTE | 2017-03-29 14:11 | HHI.PR ---
Subjective Remarks Gradual improvement in cellulitis. Coumadin continues to be held due to hyper therapeutic INR. Patient has no new complaints today. He has been constipated. Objective Vital Signs Date Time Temp Pulse Resp B/P Pulse Ox O2 Delivery O2 Flow Rate FiO2 03/29/17 10:20 75 03/29/17 08:00 95.4 87 16 121/53 90 03/29/17 06:50 18 03/29/17 04:00 96.1 82 20 144/72 95 03/29/17 03:18 19 03/29/17 00:00 96.5 86 20 138/63 96 03/28/17 20:00 96.0 92 20 144/67 92 03/28/17 17:48 89 Nasal Cannula 4.00 03/28/17 16:00 96.8 86 20 143/72 89 I/O 03/28/17 03/28/17 03/28/17 03/29/17 03/29/17 03/29/17 06:59 14:59 22:59 06:59 14:59 22:59 Intake Total 360 ml 360 ml 120 ml Output Total 650 ml 200 ml 200 ml 200 ml Balance -650 ml 160 ml 160 ml -80 ml Intake Oral 360 ml 360 ml 120 ml Output Urine Total 650 ml 200 ml 200 ml 200 ml # Bowel Movements 0 0 Result Diagram: 03/29/17 1217 03/29/17 1217 Objective Remarks GENERAL: NAD, A&Ox3 HEAD: Normocephalic. NECK: Supple, trachea midline. No lymphadenopathy. EYES: No scleral icterus. No injection or drainage. CARDIOVASCULAR: Regular rate and rhythm without murmurs, gallops, or rubs. RESPIRATORY: Breath sounds equal bilaterally. No accessory muscle use. GASTROINTESTINAL: Abdomen soft, non-tender, nondistended. MUSCULOSKELETAL: No cyanosis, or edema. Left BKA (chronic). Right lower extremity is erythematous and bandaged with a missing nail on the first digit. SKIN: Warm and dry. NEURO: No focal neurological deficitis. A/P Problem List: (1) Failure of outpatient treatment ICD Code: Z78.9 (2) Cellulitis of right foot ICD Code: L03.115 (3) Cellulitis of right leg ICD Code: L03.115 (4) Venous stasis dermatitis of right lower extremity ICD Code: I87.2 (5) Cellulitis ICD Code: L03.90 (6) Wound infection ICD Code: T14.8 (7) Diabetes mellitus type 2, uncontrolled ICD Code: E11.9 (8) Morbidly obese ICD Code: E66.01 (9) Obesity (BMI 30-39.9) ICD Code: E66.9 (10) Tobacco abuse ICD Code: Z72.0 (11) Acquired lymphedema ICD Code: I89.0 (12) COPD (chronic obstructive pulmonary disease) ICD Code: J44.9 Assessment and Plan Assessment and plan 62-year-old male admitted secondary to cellulitis with outpatient treatment failure and chronic lymphedema. Continued improvement. Continue antibiotics. Follow INR and resume Coumadin at a lower dose when INR is in therapeutic range. Colace and milk of magnesia started for constipation. Severe sepsis Sepsis resolved Follow clinically for any recurrence Continue to treat infection Cellulitis, right lower extremity Outpatient treatment failure Increased risk given peripheral artery disease and right lower extremity lymphedema Consult wound care Consult infectious disease Zosyn changed to cefepime Continue cefepime and vancomycin continued for now When necessary pain treatments When necessary IV Dilaudid with dressing changes Probiotics while on antibiotics Constipation Colace Milk of magnesia Peripheral artery disease Right lower extremity lymphedema Contributory Continue dressing changes Monitor clinically Wound care nurse Neuropathy Continue gabapentin Hypertension Continue baseline treatments Follow blood pressure Currently stable Hyperlipidemia Continue statin Follow as an outpatient Diabetes mellitus type 2 Insulin sliding scale Diabetic diet Follow blood sugars History of Old myocardial infarction 2 History of CVA 3 History of brain aneurysm History of DVT History of Agent [place] exposure Depression No change in baseline treatments DVT prophylaxis Lovenox Discharge planning Infection must be under control prior to consideration of discharge Problem Qualifiers (1) Diabetes mellitus type 2, uncontrolled: Qualified Code: E11.8 - Uncontrolled type 2 diabetes mellitus with complication , without long-term current use of insulin Foster Johns MD Mar 29, 2017 14:11
[2017-03-29] MEDS ORDERED: MAGNESIUM HYDROXIDE SUSP 30 ML CUP PO PRN (14:30)
[2017-03-29 15:28] LABS: INTERNATIONAL NORMALIZED RATIO 4.8 RATIO; PROTHROMBIN TIME - PATIENT 57.3 SEC (9.8-11.6)
--- NOTE | 2017-03-29 16:09 | HHI.IDPN ---
Subjective Subjective Remarks Patient is a 62-year-old morbidly obese CM, presented to the hospital for further evaluation of increased drainage from his right lower extremity wounds, increasing pain and redness. Patient has chronic right lower extremity wounds, and has had problem with recurrent cellulitis. He was last here in January and at that time he was discharge on oral Keflex. Patient states that he goes to the wound care center at the [facility] at least every other week, and he has nurses coming to his house, and changing the dressing on his right lower extremity. He recently completed a course of Cipro from the [facility] for his right lower extremity wounds. Over the last 2-3 days, he has noted increase in drainage from his wounds, and he started noticing increased redness as well as increased pain. Patient is wheelchair bound, and does not really put any weight on his right lower extremity. He is status post left [id number] amputation. He denies any fever or chills. He has not had any complaints no cough or any sore throat. No GI or any urinary complaints. Notes reviewed Temps ok One BC with Coag Neg Staph Wound C/S with GNR and skin cadence Not very compliant with edema control, fluid intake, diet Antibiotics Cefepime Vancomycin Lines PIV Past Medical History PVD Neuropathy Morbid obesity Hypertension Hyperlipidemia Diabetes Previous DC There is mention of previous stroke History of brain aneurysm status post clipping DVT Agent orange exposure Depression Past Surgical History Aneurysm clipping in 1990 Left AKA Cholecystectomy Appendectomy Tonsillectomy Hemorrhoidectomy Port placement Allergies: Coded Allergies: Betadine (Verified Allergy, Severe, 03/26/17) Contrast Media (Verified Allergy, Severe, SHOCK, 03/26/17) Iodine (Verified Allergy, Severe, 03/26/17) MRI PRECAUTION (Verified Allergy, Severe, ANEURSYM CLIPPING, 03/26/17) Objective . Vital Signs Date Time Temp Pulse Resp B/P Pulse Ox O2 Delivery O2 Flow Rate FiO2 03/29/17 12:00 95.7 85 17 151/78 96 03/29/17 10:20 75 03/29/17 08:00 95.4 87 16 121/53 90 03/29/17 06:50 18 03/29/17 04:00 96.1 82 20 144/72 95 03/29/17 03:18 19 03/29/17 00:00 96.5 86 20 138/63 96 03/28/17 20:00 96.0 92 20 144/67 92 03/28/17 17:48 89 Nasal Cannula 4.00 03/28/17 03/28/17 03/29/17 14:59 22:59 06:59 Intake Total 360 ml 360 ml 120 ml Output Total 200 ml 200 ml 200 ml Balance 160 ml 160 ml -80 ml Intake Oral 360 ml 360 ml 120 ml Output Urine Total 200 ml 200 ml 200 ml # Bowel Movements 0 0 . Laboratory Tests Test 03/28/17 03/29/17 05:00 12:17 White Blood Count 12.2 TH/MM3 11.5 TH/MM3 Red Blood Count 3.87 MIL/MM3 3.80 MIL/MM3 Hemoglobin 9.3 GM/DL 9.1 GM/DL Hematocrit 31.3 % 31.1 % Mean Corpuscular Volume 81.0 FL 81.7 FL Mean Corpuscular Hemoglobin 24.1 PG 24.0 PG Mean Corpuscular Hemoglobin 29.8 % 29.4 % Concent Red Cell Distribution Width 18.3 % 18.5 % Platelet Count 314 TH/MM3 309 TH/MM3 Mean Platelet Volume 7.8 FL 7.9 FL Neutrophils (%) (Auto) 77.6 % Lymphocytes (%) (Auto) 13.6 % Monocytes (%) (Auto) 5.5 % Eosinophils (%) (Auto) 2.0 % Basophils (%) (Auto) 1.3 % Neutrophils # (Auto) 9.5 TH/MM3 Lymphocytes # (Auto) 1.7 TH/MM3 Monocytes # (Auto) 0.7 TH/MM3 Eosinophils # (Auto) 0.2 TH/MM3 Basophils # (Auto) 0.2 TH/MM3 CBC Comment DIFF FINAL Differential Comment Laboratory Tests Test 03/28/17 03/29/17 05:00 12:17 Sodium Level 137 MEQ/L 139 MEQ/L Potassium Level 4.4 MEQ/L 4.1 MEQ/L Chloride Level 102 MEQ/L 102 MEQ/L Carbon Dioxide Level 31.2 MEQ/L 31.0 MEQ/L Anion Gap 4 MEQ/L 6 MEQ/L Blood Urea Nitrogen 10 MG/DL 9 MG/DL Creatinine 0.60 MG/DL 0.53 MG/DL Estimat Glomerular Filtration 136 ML/MIN 157 ML/MIN Rate Random Glucose 118 MG/DL 105 MG/DL Calcium Level 8.3 MG/DL 8.7 MG/DL Microbiology Date/Time Procedure Status Source Growth 03/27/17 00:07 Aerobic Blood Culture - Preliminary Resulted Blood Peripheral NO GROWTH IN 2 DAYS 03/27/17 00:07 Anaerobic Blood Culture - Preliminary Resulted Blood Peripheral NO GROWTH IN 2 DAYS 03/27/17 00:07 Gram Stain - Final Resulted Wound Foot 03/27/17 00:07 Wound Culture - Preliminary Resulted Gram Negative Devan 03/27/17 00:15 Aerobic Blood Culture - Preliminary Resulted Blood Peripheral Staph Sp Coagulase Negative 03/27/17 00:15 Anaerobic Blood Culture - Preliminary Resulted Blood Peripheral NO GROWTH IN 2 DAYS Imaging Last Impressions Foot X-Ray 03/27/1713 Signed Impressions: Service Date/Time: Saturday, March 27, 2017 00:12 - CONCLUSION: Nonspecific severe soft tissue swelling. No acute bony abnormality demonstrated. Jorge Alberto Richard MD Chest X-Ray 03/27/1713 Signed Impressions: Service Date/Time: Saturday, March 27, 2017 00:20 - CONCLUSION: Trace consolidation and pleural fluid at each lung base. Jorge Alberto Richard MD Physical Exam GENERAL: awake and alert, not in respiratory distress. SKIN: Warm and dry. No generalized rash HEAD: Atraumatic. Normocephalic. No temporal wasting, or tenderness. EYES: [place] conjunctiva. No petechia or hemorrhage. Pupils equal, round and reactive to light. No scleral icterus. No injection or drainage. EARS, NOSE AND THROAT: Nose without bleeding or purulent nasal discharge. No sinus tenderness. Mucous membranes pink and moist. No oral lesions noted. NECK: Trachea midline. Supple and not tender, no meningeal signs CARDIOVASCULAR: Regular rate and rhythm. No murmurs, rubs or gallops heard RESPIRATORY: Clear to auscultation. Breath sounds equal bilaterally. No rales , wheezing or rhonchi. Decreased BS at the bases. Port in R upper chest currently accessed, with no evidence of infection ABDOMEN: Soft, obese, non-tender, nondistended. Bowel sounds present and normoactive. No guarding. No rebound. No organomegaly. EXTREMITIES: He is SA/P L AKA, well healed stump. RLE: with dry dressing. Redness looks better but still very swollen NEUROLOGICAL: Non-focal. PSYCHIATRIC: Normal affect, calm and cooperative. LINE: No evidence of infection Assessment & Plan Remarks IMPRESSION Recurrent cellulitis RLE, patient with chronic LE edema, and stasis ulcers Obesity Known PVD Previous [place] One (+) BC with Coag Negg Staph, likely contaminant RECOMMENDATION Wound care Continue Cefepime Stop Vancomycin Start Augmentin Follow C/S and decide on second Abx for the GNR If GNR sensitive to Augmentin, Keflex or Ceftin - then no need to give Clindamycin and just use either one of those 3 Abx on D/C Once C/S finalized, should be able to D/C this weekend 10 days oral Abx in D/C Edema control Wound care as per podiatry I will off this weekend Dr Robins available if with any question regarding the C/S results HEPAS can check culture and decide on oral Abx for D/C Pippa Calloway MD Mar 29, 2017 16:09
[2017-03-29] MEDS ORDERED: CLINDAMYCIN 150 MG CAP PO SCH (18:00)
[2017-03-29] MEDS: AMOXICILLIN/CLAVULANATE K 500 MG TAB PO SCH (18:32)
[2017-03-29] MEDS: DOCUSATE SODIUM 100 MG CAP PO SCH (20:40)
[2017-03-29] MEDS: PRAVASTATIN SOD 20 MG TAB PO SCH (20:41)
[2017-03-30] VITALS (7 sets, daily range): BP systolic 127–159; BP diastolic 59–74; PULSE 75–93; RESP 18–20; TEMP 95–97.7; O2SAT 92–97
[2017-03-30] MEDS: GABAPENTIN 100 MG CAP PO SCH ×4 (00:26→16:14)
[2017-03-30] MEDS: AMOXICILLIN/CLAVULANATE K 500 MG TAB PO SCH ×3 (00:26→16:14)
[2017-03-30] MEDS: CEFEPIME INJ 2,000 MG in SODIUM CHLORIDE 0.9% INJ 100 ML IV SCH ×2 (02:55→13:34)
[2017-03-30] MEDS: oxyCODONE/ACETAMINOPHEN 10 MG/325 MG TAB PO PRN ×2 (02:55→09:44)
[2017-03-30] MEDS: INSULIN ASPART SUPPLEMENTAL SCALE SQ SCH ×4 (07:00→21:00)
[2017-03-30 07:08] LABS: HEMATOCRIT 29.1 % (39.0-51.0); MEAN CELL VOLUME 80.5 FL (80.0-100.0); MEAN CORPUSCULAR HEMOGLOBIN 25.2 PG (27.0-34.0); MEAN CORPUSCULAR HGB CONC 31.3 % (32.0-36.0); PLATELET COUNT 300 TH/MM3 (150-450); RED BLOOD COUNT 3.61 MIL/MM3 (4.50-5.90); RED CELL DISTRIBUTION WIDTH 18.1 % (11.6-17.2); REVIEW FLAG FINAL
[2017-03-30 07:11] LABS: INTERNATIONAL NORMALIZED RATIO 4.6 RATIO; PROTHROMBIN TIME - PATIENT 54.2 SEC (9.8-11.6)
[2017-03-30 07:31] LABS: BICARBONATE 32.8 MEQ/L (21.0-32.0); POTASSIUM 3.9 MEQ/L (3.5-5.1)
[2017-03-30] MEDS: LACTOBACILLUS ACIDOPHILUS TAB PO SCH ×3 (09:35→16:14)
[2017-03-30] MEDS: DOCUSATE SODIUM 100 MG CAP PO SCH ×2 (09:35→21:00)
[2017-03-30] MEDS: POTASSIUM CHLORIDE 10 MEQ CAP PO SCH (09:35)
[2017-03-30] MEDS: SPIRONOLACTONE 25 MG TAB PO SCH (09:35)
[2017-03-30] MEDS: VENLAFAXINE HCL XR 75 MG CAP PO SCH (09:35)
[2017-03-30] MEDS: PRIMIDONE 50 MG TAB PO SCH ×3 (09:35→16:14)
[2017-03-30] MEDS: DILTIAZEM-CD 240 MG CAP ER PO SCH (09:35)
[2017-03-30] MEDS: SODIUM CHLORIDE 0.9% FLUSH 10 ML FLUSH IV FLUSH SCH ×2 (09:36→22:41)
[2017-03-30] MEDS: BACLOFEN 10 MG TAB PO SCH ×3 (09:36→16:14)
[2017-03-30] MEDS ORDERED: NYSTATIN 100,000 U/GM OINT 15 GM TUBE TOPICAL ONE (13:15)
[2017-03-30] MEDS ORDERED: PHARMACY ORDERED LAB ONE (13:45)
[2017-03-30] MEDS: HYDROmorphone HCL PF 1 MG/ML VIAL IV PUSH PRN (15:42)
--- NOTE | 2017-03-30 17:10 | HHI.PR ---
Subjective Remarks Pain remains at right lower extremity. She does have chronic pain in this extremity and foot, but present pain is worsened secondary to infection. Overall he is improving in regards to infection and has no new complaints today. Objective Vital Signs Date Time Temp Pulse Resp B/P Pulse Ox O2 Delivery O2 Flow Rate FiO2 03/30/17 16:00 96.6 75 19 137/60 95 03/30/17 12:00 97.7 93 18 127/59 94 03/30/17 11:00 89 03/30/17 08:00 97.7 91 18 141/69 92 03/30/17 04:00 95.0 89 20 159/74 95 03/30/17 00:00 95.1 76 20 129/74 93 03/29/17 22:14 72 03/29/17 20:00 95.4 80 20 124/77 92 I/O 03/29/17 03/29/17 03/29/17 03/30/17 03/30/17 03/30/17 07:00 15:00 23:00 07:00 15:00 23:00 Intake Total 120 ml 240 ml 120 ml 480 ml Output Total 200 ml 400 ml 200 ml 500 ml Balance -80 ml -160 ml -80 ml -20 ml Intake Oral 120 ml 240 ml 120 ml 480 ml Output Urine Total 200 ml 400 ml 200 ml 500 ml # Voids 2 # Bowel Movements 0 0 0 0 Result Diagram: 03/30/17 0600 03/30/17 0600 Objective Remarks GENERAL: NAD, A&Ox3 HEAD: Normocephalic. NECK: Supple, trachea midline. No lymphadenopathy. EYES: No scleral icterus. No injection or drainage. CARDIOVASCULAR: Regular rate and rhythm without murmurs, gallops, or rubs. RESPIRATORY: Breath sounds equal bilaterally. No accessory muscle use. GASTROINTESTINAL: Abdomen soft, non-tender, nondistended. MUSCULOSKELETAL: No cyanosis, or edema. Left BKA (chronic). Right lower extremity is erythematous and bandaged with a missing nail on the first digit. SKIN: Warm and dry. Erythema with Candidiasis present at inguinal folds and pectoral folds. NEURO: No focal neurological deficitis. A/P Problem List: (1) Failure of outpatient treatment ICD Code: Z78.9 (2) Cellulitis of right foot ICD Code: L03.115 (3) Cellulitis of right leg ICD Code: L03.115 (4) Venous stasis dermatitis of right lower extremity ICD Code: I87.2 (5) Cellulitis ICD Code: L03.90 (6) Wound infection ICD Code: T14.8 (7) Diabetes mellitus type 2, uncontrolled ICD Code: E11.9 (8) Morbidly obese ICD Code: E66.01 (9) Obesity (BMI 30-39.9) ICD Code: E66.9 (10) Tobacco abuse ICD Code: Z72.0 (11) Acquired lymphedema ICD Code: I89.0 (12) COPD (chronic obstructive pulmonary disease) ICD Code: J44.9 Assessment and Plan Assessment and plan 62-year-old male admitted secondary to cellulitis with outpatient treatment failure and chronic lymphedema. Improvement continues. INR has a slight downward trend. Coagulopathy related to infection, which is evidence that patient may have been trending toward sepsis, was a likely cause, but improvement is seen now. Follow CBC. Follow vital signs. Continue to treat infection. Nystatin started for candidiasis of fat folds chest and groin. Severe sepsis Sepsis resolved Follow clinically for any recurrence Continue to treat infection Cellulitis, right lower extremity Outpatient treatment failure Increased risk given peripheral artery disease and right lower extremity lymphedema Consult wound care Consult infectious disease Zosyn changed to cefepime Continue cefepime and vancomycin continued for now When necessary pain treatments When necessary IV Dilaudid with dressing changes Probiotics while on antibiotics Constipation Colace Milk of magnesia Peripheral artery disease Right lower extremity lymphedema Contributory Continue dressing changes Monitor clinically Wound care nurse Neuropathy Continue gabapentin Hypertension Continue baseline treatments Follow blood pressure Currently stable Hyperlipidemia Continue statin Follow as an outpatient Diabetes mellitus type 2 Insulin sliding scale Diabetic diet Follow blood sugars History of Old myocardial infarction 2 History of CVA 3 History of brain aneurysm History of DVT History of Agent [place] exposure Depression No change in baseline treatments DVT prophylaxis Lovenox Discharge planning Infection must be under control prior to consideration of discharge Problem Qualifiers (1) Diabetes mellitus type 2, uncontrolled: Qualified Code: E11.8 - Uncontrolled type 2 diabetes mellitus with complication , without long-term current use of insulin Foster Johns MD Mar 30, 2017 17:10
[2017-03-30] MEDS: PRAVASTATIN SOD 20 MG TAB PO SCH (22:40)
[2017-03-31] VITALS (7 sets, daily range): BP systolic 125–177; BP diastolic 65–85; PULSE 76–92; RESP 16–20; TEMP 96.1–97.8; O2SAT 91–97
[2017-03-31] MEDS: AMOXICILLIN/CLAVULANATE K 500 MG TAB PO SCH ×3 (00:59→16:59)
[2017-03-31] MEDS: NYSTATIN 100,000 U/GM OINT 15 GM TUBE TOPICAL SCH ×3 (00:59→20:58)
[2017-03-31] MEDS: CEFEPIME INJ 2,000 MG in SODIUM CHLORIDE 0.9% INJ 100 ML IV SCH ×2 (01:00→13:20)
[2017-03-31] MEDS: oxyCODONE/ACETAMINOPHEN 10 MG/325 MG TAB PO PRN ×4 (01:07→20:55)
[2017-03-31] MEDS: GABAPENTIN 100 MG CAP PO SCH ×4 (01:49→17:00)
[2017-03-31] MEDS: INSULIN ASPART SUPPLEMENTAL SCALE SQ SCH ×4 (06:31→20:56)
[2017-03-31 07:15] LABS: INTERNATIONAL NORMALIZED RATIO 4.1 RATIO; PROTHROMBIN TIME - PATIENT 47.9 SEC (9.8-11.6)
[2017-03-31] MEDS: POTASSIUM CHLORIDE 10 MEQ CAP PO SCH (08:03)
[2017-03-31] MEDS: DILTIAZEM-CD 240 MG CAP ER PO SCH (08:03)
[2017-03-31] MEDS: DOCUSATE SODIUM 100 MG CAP PO SCH ×2 (08:04→20:55)
[2017-03-31] MEDS: VENLAFAXINE HCL XR 75 MG CAP PO SCH (08:04)
[2017-03-31] MEDS: PRIMIDONE 50 MG TAB PO SCH ×3 (08:04→16:59)
[2017-03-31] MEDS: BACLOFEN 10 MG TAB PO SCH ×3 (08:04→17:00)
[2017-03-31] MEDS: LACTOBACILLUS ACIDOPHILUS TAB PO SCH ×3 (08:04→16:59)
[2017-03-31] MEDS: SPIRONOLACTONE 25 MG TAB PO SCH (08:04)
[2017-03-31] MEDS: SODIUM CHLORIDE 0.9% FLUSH 10 ML FLUSH IV FLUSH SCH ×2 (08:04→20:56)
--- NOTE | 2017-03-31 09:57 | HHI.PR ---
Subjective Remarks Infection continues to improve. Need to ensure patient's physical abilities are back to baseline prior to discharge. Wound cultures have finally resulted and will select one of recommendations of Augmentin, Keflex or Ceftin; by mouth at discharge. Based on physical therapy evaluation patient may be discharged in 1-2 days, evaluation pending. Goal is to have patient able to slide using a sliding board which was his prior baseline. Objective Vital Signs Date Time Temp Pulse Resp B/P Pulse Ox O2 Delivery O2 Flow Rate FiO2 03/31/17 08:00 96.7 81 18 145/85 96 03/31/17 07:00 76 03/31/17 04:00 96.1 82 18 177/83 96 03/31/17 00:00 97.8 92 20 158/71 97 03/30/17 20:00 95.8 87 20 138/71 97 03/30/17 16:00 96.6 75 19 137/60 95 03/30/17 12:00 97.7 93 18 127/59 94 03/30/17 11:00 89 I/O 03/30/17 03/30/17 03/30/17 03/31/17 03/31/17 03/31/17 07:00 15:00 23:00 07:00 15:00 23:00 Intake Total 120 ml 480 ml Output Total 200 ml 500 ml Balance -80 ml -20 ml Intake Oral 120 ml 480 ml Output Urine Total 200 ml 500 ml # Voids 5 # Bowel Movements 0 0 Result Diagram: 03/30/17 0600 03/30/17 0600 Objective Remarks GENERAL: NAD, A&Ox3 HEAD: Normocephalic. NECK: Supple, trachea midline. No lymphadenopathy. EYES: No scleral icterus. No injection or drainage. CARDIOVASCULAR: Regular rate and rhythm without murmurs, gallops, or rubs. RESPIRATORY: Breath sounds equal bilaterally. No accessory muscle use. GASTROINTESTINAL: Abdomen soft, non-tender, nondistended. MUSCULOSKELETAL: No cyanosis, or edema. Left BKA (chronic). Right lower extremity is erythematous and bandaged with a missing nail on the first digit. SKIN: Warm and dry. Erythema with Candidiasis present at inguinal folds and pectoral folds. NEURO: No focal neurological deficitis. A/P Problem List: (1) Failure of outpatient treatment ICD Code: Z78.9 (2) Cellulitis of right foot ICD Code: L03.115 (3) Cellulitis of right leg ICD Code: L03.115 (4) Venous stasis dermatitis of right lower extremity ICD Code: I87.2 (5) Cellulitis ICD Code: L03.90 (6) Wound infection ICD Code: T14.8 (7) Diabetes mellitus type 2, uncontrolled ICD Code: E11.9 (8) Morbidly obese ICD Code: E66.01 (9) Obesity (BMI 30-39.9) ICD Code: E66.9 (10) Tobacco abuse ICD Code: Z72.0 (11) Acquired lymphedema ICD Code: I89.0 (12) COPD (chronic obstructive pulmonary disease) ICD Code: J44.9 Assessment and Plan Assessment and plan 62-year-old male admitted secondary to cellulitis with outpatient treatment failure and chronic lymphedema. Wounds are improving. INR is decreasing. Physical ability must reach functional baseline to discharge. Continue cefepime and Augmentin. Severe sepsis Sepsis resolved Follow clinically for any recurrence Continue to treat infection Cellulitis, right lower extremity Outpatient treatment failure Increased risk given peripheral artery disease and right lower extremity lymphedema Consult wound care Infectious disease following. Continue cefepime and Augmentin Vancomycin discontinued yesterday. When necessary pain treatments When necessary IV Dilaudid with dressing changes Probiotics while on antibiotics Constipation Colace Milk of magnesia Peripheral artery disease Right lower extremity lymphedema Contributory Continue dressing changes Monitor clinically Wound care nurse Neuropathy Continue gabapentin Hypertension Continue baseline treatments Follow blood pressure Currently stable Hyperlipidemia Continue statin Follow as an outpatient Diabetes mellitus type 2 Insulin sliding scale Diabetic diet Follow blood sugars History of Old myocardial infarction 2 History of CVA 3 History of brain aneurysm History of DVT History of Agent [place] exposure Depression No change in baseline treatments DVT prophylaxis Lovenox Discharge planning Plan to discharge on by mouth antibiotics. Physical therapy evaluation and she is demonstrating ability to use sliding board is necessary prior to discharge. Problem Qualifiers (1) Diabetes mellitus type 2, uncontrolled: Qualified Code: E11.8 - Uncontrolled type 2 diabetes mellitus with complication , without long-term current use of insulin Foster Johns MD Mar 31, 2017 09:57
[2017-03-31] MEDS: HYDROmorphone HCL PF 1 MG/ML VIAL IV PUSH PRN (16:31)
[2017-03-31] MEDS: PRAVASTATIN SOD 20 MG TAB PO SCH (20:54)
[2017-04-01] VITALS: BP 122/70; PULSE 77; RESP 18; TEMP 96.3; O2SAT 93
[2017-04-01] MEDS: AMOXICILLIN/CLAVULANATE K 500 MG TAB PO SCH ×2 (00:50→10:01)
[2017-04-01] MEDS: GABAPENTIN 100 MG CAP PO SCH ×3 (00:51→11:18)
[2017-04-01] MEDS: CEFEPIME INJ 2,000 MG in SODIUM CHLORIDE 0.9% INJ 100 ML IV SCH ×2 (00:51→12:38)
[2017-04-01] MEDS: oxyCODONE/ACETAMINOPHEN 10 MG/325 MG TAB PO PRN ×3 (00:59→10:03)
[2017-04-01 04:00] VITALS: BP 149/75; PULSE 76; RESP 20; TEMP 96.6; O2SAT 93
[2017-04-01] MEDS: INSULIN ASPART SUPPLEMENTAL SCALE SQ SCH ×2 (05:39→11:00)
[2017-04-01 06:05] VITALS: PULSE 78
[2017-04-01 06:10] LABS: HEMATOCRIT 30.8 % (39.0-51.0); REVIEW FLAG FINAL
[2017-04-01 06:21] LABS: PROTHROMBIN TIME - PATIENT 35.3 SEC (9.8-11.6)
[2017-04-01 08:03] VITALS: BP 144/92; PULSE 74; RESP 20; TEMP 96.2; O2SAT 94
[2017-04-01] MEDS: DOCUSATE SODIUM 100 MG CAP PO SCH (09:00)
[2017-04-01] MEDS: NYSTATIN 100,000 U/GM OINT 15 GM TUBE TOPICAL SCH (09:00)
[2017-04-01] MEDS: VENLAFAXINE HCL XR 75 MG CAP PO SCH (10:00)
[2017-04-01] MEDS: DILTIAZEM-CD 240 MG CAP ER PO SCH (10:01)
[2017-04-01] MEDS: LACTOBACILLUS ACIDOPHILUS TAB PO SCH ×2 (10:01→12:38)
[2017-04-01] MEDS: BACLOFEN 10 MG TAB PO SCH ×2 (10:02→12:38)
[2017-04-01] MEDS: PRIMIDONE 50 MG TAB PO SCH ×2 (10:02→12:38)
[2017-04-01] MEDS: POTASSIUM CHLORIDE 10 MEQ CAP PO SCH (10:02)
[2017-04-01] MEDS: SPIRONOLACTONE 25 MG TAB PO SCH (10:03)
[2017-04-01] MEDS: SODIUM CHLORIDE 0.9% FLUSH 10 ML FLUSH IV FLUSH SCH (10:03)
[2017-04-01] MEDS ORDERED: COUM2TAB PO (11:20)
[2017-04-01] MEDS ORDERED: DILA2TAB2 PO (11:20)
[2017-04-01] MEDS ORDERED: AUGM875T3 PO (11:20)
[2017-04-01] MEDS ORDERED: NORC5TAB PO (11:20)
[2017-04-01] MEDS ORDERED: LACTTAB8 PO (11:20)
[2017-04-01] MEDS ORDERED: NYST100084 TOPICAL (11:20)
--- NOTE | 2017-04-01 11:22 | HHI.DS ---
Discharge Summary Admission Date Mar 27, 2017 at 01:36 Discharge Date: Apr 01, 2017 Admitting Diagnosis Cellulitis right leg (1) Cellulitis of right leg ICD Code: L03.115 (2) Cellulitis of right foot ICD Code: L03.115 Diagnosis: Principal (3) Failure of outpatient treatment ICD Code: Z78.9 Diagnosis: Principal Procedures None Brief History - From Admission Mr. Aguero is a 62-year-old male. He has right lower extremity lymphedema. Left lower extremity has been amputated in the past secondary to osteomyelitis. Peripheral artery disease is present and places him at increased risk for infections in addition to his lymphedema. He says for the past 3 days he has had an acute worsening and increased redness and pain of his right lower extremity below the knee. She denies any fevers. Labs reveal leukocytosis and tachycardia is present; a lactic acid level of 2.6 on admit and obvious source of infection disqualifies him for severe sepsis criteria. No septic shock. No other complaints. Patient has no chest pain. At baseline he is wheelchair dependent. CBC/BMP: 04/01/17 0540 03/30/17 0600 Significant Findings Laboratory Tests Test 03/29/17 03/29/17 03/30/17 03/31/17 12:06 12:17 06:00 06:50 Prothrombin Time 57.3 SEC 54.2 SEC 47.9 SEC (9.8-11.6) (9.8-11.6) (9.8-11.6) White Blood Count 11.5 TH/MM3 (4.0-11.0) Red Blood Count 3.80 MIL/MM3 3.61 MIL/MM3 (4.50-5.90) (4.50-5.90) Hemoglobin 9.1 GM/DL 9.1 GM/DL (13.0-17.0) (13.0-17.0) Hematocrit 31.1 % 29.1 % (39.0-51.0) (39.0-51.0) Mean Corpuscular Hemoglobin 24.0 PG 25.2 PG (27.0-34.0) (27.0-34.0) Mean Corpuscular Hemoglobin 29.4 % 31.3 % Concent (32.0-36.0) (32.0-36.0) Red Cell Distribution Width 18.5 % 18.1 % (11.6-17.2) (11.6-17.2) Creatinine 0.53 MG/DL 0.51 MG/DL (0.60-1.30) (0.60-1.30) Carbon Dioxide Level 32.8 MEQ/L (21.0-32.0) Calcium Level 8.2 MG/DL (8.5-10.1) Test 04/01/17 05:40 Hemoglobin 9.7 GM/DL (13.0-17.0) Hematocrit 30.8 % (39.0-51.0) Prothrombin Time 35.3 SEC (9.8-11.6) Hospital Course Mr. Schroeder is a 62-year-old male. He was admitted secondary to right leg cellulitis. He has a problem with lymphedema in his right leg and has problems with recurrent cellulitis at that leg. Outpatient measures failed to improve his condition so he came to the hospital for IV antibiotics. He was treated with IV vancomycin initially but this was converted to cefepime with good response to time. She has improvement in erythema and drainage at his first digit nail bed. Leg is approaching his baseline. No further signs of infection on blood work. Medically stable for discharge today. Cultures show that he sensitive to penicillin treatment so he is discharged on Augmentin for 10 more days. He will have home health with dressing changes daily. Pt Condition on Discharge: Stable Discharge Disposition: Disch w/ Home Health Serv Discharge Time: > 30 minutes Discharge Instructions DIET: Follow Instructions for: As Tolerated, No Restrictions Activities you can perform: Regular-No Restrictions, Partial Weight Bearing Follow up Referrals: PCP Follow-up - 1 Week New Medications: Amoxicillin-Clavulanate (Augmentin) 875-125 Mg Tab 1 TAB PO BID Infection #20 Ref 0 TAB Hydrocodone-Acetaminophen ([place]) 5-325 mg Tab 1 TAB PO Q6H PRN PAIN #40 Ref 0 TAB Hydromorphone (Dilaudid) 2 Mg Tab 2 MG PO DAILY PRN Dressing Change #20 Ref 0 TAB Lactobacillus Acidophilus (Lactobacillus Acidophilus) 1 Tab Tab 1 TAB PO TIDAC Nutritional Supplement #30 Ref 0 TAB Warfarin (Coumadin) 2 Mg Tab 2 MG PO DAILY Prevent Blood Clot #15 Ref 0 TAB Nystatin Topical (Nystatin Topical) 100,000 unit/gm Oint 1 APPLIC TOPICAL Q12HR Fungal Infection #1 TUBE Foster Johns MD Apr 01, 2017 11:22
--- NOTE | 2017-04-01 11:23 | HHI.FF ---
Face to Face Verification Diagnosis: (1) Venous stasis dermatitis of right lower extremity (2) Cellulitis Home Health Nursing Order: Wound care and dressing changes I have seen patient Jorge Alberto Contreras on 04/01/17. My clinical findings support the need for the requested home health care services because: Ltd mobility - disease progression Patient has SOB Deconditioned w/ increased weakness Limited ability to care for self High risk of falls Infection w/ risk of complications I certify that my clinical findings support that this patient is homebound because: Unsteady gait/balance Unsafe to leave home unassisted Rit-[id number]-[id number] bed/chair Unable to use public transportation Poor cardiac reserve Foster Johns MD Apr 01, 2017 11:23
[2017-04-01 11:54] VITALS: BP 157/88; PULSE 76; RESP 20; TEMP 97; O2SAT 93
== END 2017-04-01 14:59 | disposition home health service (06) | DRG 872 ==
LOC: NEPE 22:44 → NEDA 03-27 01:36 → NEDH 03-27 05:36 → N05A 03-27 14:10
PROVIDERS: ADMIT Hospitalist; ATTEND Hospitalist
DX: A41.9 Sepsis, unspecified organism (principal); E11.42 Type 2 diabetes mellitus with diabetic polyneuropathy; E11.65 Type 2 diabetes mellitus with hyperglycemia; L03.115 Cellulitis of right lower limb; B37.2 Candidiasis of skin and nail; Z89.612 Acquired absence of left leg above knee; I48.91 Unspecified atrial fibrillation; F17.210 Nicotine dependence, cigarettes, uncomplicated; Z68.41 Body mass index [BMI] 40.0-44.9, adult; G25.0 Essential tremor; R65.20 Severe sepsis without septic shock; J44.9 Chronic obstructive pulmonary disease, unspecified; E78.5 Hyperlipidemia, unspecified; G43.909 Migraine, unspecified, not intractable, without status migrainosus; L98.499 Non-pressure chronic ulcer of skin of other sites with unspecified severity; I73.9 Peripheral vascular disease, unspecified; I25.10 Atherosclerotic heart disease of native coronary artery without angina pectoris; E66.01 Morbid (severe) obesity due to excess calories; I89.0 Lymphedema, not elsewhere classified; I87.2 Venous insufficiency (chronic) (peripheral); K59.00 Constipation, unspecified; F32.9 Major depressive disorder, single episode, unspecified; I25.2 Old myocardial infarction; Z86.14 Personal history of Methicillin resistant Staphylococcus aureus infection; Z86.718 Personal history of other venous thrombosis and embolism; Z79.01 Long term (current) use of anticoagulants; Z79.84 Long term (current) use of oral hypoglycemic drugs; Z99.3 Dependence on wheelchair; Z86.73 Personal history of transient ischemic attack (TIA), and cerebral infarction without residual deficits
CPT/HCPCS: 71010; 73630; 80048; 80053; 82550; 82948; 83605; 83735; 83880; 84484; 85014; 85018; 85025; 85027; 85610; 85730; 86140; 87040; 87070; 87077; 87186; 87205; 93005; 96365; 96367; 96375; J0692; J1170; J2270; J2405; J2543; J3370; J7040; J7050

== ENCOUNTER 2017-04-29 07:06 | Inpatient (IN) | payer OTHER, MEDICARE ==
[~2017-04-29] VITALS: Ht 190.5 cm; Wt 142.1 kg
[2017-04-29] VITALS (9 sets, daily range): BP systolic 131–174; BP diastolic 59–83; PULSE 80–103; RESP 16–22; TEMP 97.4–98.3; O2SAT 96–100
[~2017-04-29 07:06] MED LIST changes: +AUGM875T3 PO; -CEPH-459 PO; +COUM2TAB PO; +DILA2TAB2 PO; -DOXY100C PO; -FOLI1TAB4 PO; +LACTTAB8 PO; +NORC5TAB PO; +NYST100084 TOPICAL; -PERC5TAB12 PO; -VITA100018 PO
--- NOTE | 2017-04-29 07:14 | PD ---
HPI Chief Complaint: near syncope Time Seen by Provider: 07:13 Travel History International Travel<30 days: No Contact w/Intl Traveler<30days: No Traveled to known affect area: No History of Present Illness HPI 62-year-old male was brought in by EMS after he got dizzy and slid out of his wheelchair. Patient is morbidly obese and left BKA and wheelchair-bound. He could not get back to the wheelchair and called the fire department. They found him debilitated and somewhat altered mental status. Blood sugar was stable on route and so was the vital signs except for his oxygen saturation. Upon arrival he was 88% on room air. As per my understanding patient does not require oxygen at home. He was not giving a good history and I had to ask questions repeatedly to get some answers. He did tell me that he was having some headache and his right leg was hurting. I did not get any history of him hitting his head when he fell. Patient is on Coumadin but the reason for that is unclear. He denied any previous history of DVT or PE. Patient denies of any chest pain. He has history of brain aneurysm that required clipping. Patient has multiple comorbidities. Patient also denies of being on any pain medication. However his home medication list shows Dilaudid 3 times a day. I' m unclear at this present time whether he is truly confused or not forthcoming with accurate history. [facility] Past Medical History Narrative Medical List of his past medical, surgical, social and family history is reviewed from the nursing note. Hx Anticoagulant Therapy: Yes (COUMADIN) Arthritis: Yes (OA) Asthma: No Atrial Fibrillation: Yes Autoimmune Disease: No Blood Disorders: Yes (PT. HAS HISTORY OF BLOOD CLOTS.) Anxiety: No Depression: No Heart Rhythm Problems: Yes Cardiac Catheterization: Yes Cardiomyopathy: Yes Cardiovascular Problems: Yes (DE X 2) High Cholesterol: Yes Chemotherapy: No Chest Pain: Yes (hx of on nitroglycerin tabs average two tabsx2 monthly) Congestive Heart Failure: Yes COPD: Yes Cerebrovascular Accident: Yes (TIA X3) Coronary Artery Disease: Yes Diabetes: Yes Diminished Hearing: No Deep Vein Thrombosis: Yes Endocrine: Yes Gastrointestinal Disorders: No GERD: No Glaucoma: No Genitourinary: No Headaches: Yes Hepatitis: No Hiatal Hernia: No Hypertension: Yes Immune Disorder: No Implanted Vascular Access Dvce: Yes (PORT RIGHT CHEST WALL) Kidney Stones: No Musculoskeletal: Yes (back and AKA left leg) Neurologic: Yes (BRAIN SURGERY, ANEURYSM CLIPPED IN 1990, ESSENTIAL TREMORS) Psychiatric: No Reproductive: No Respiratory: Yes (COPD) Integumentary: Yes (CELLULITIS, WOUND RN DAILY ) Migraines: Yes Myocardial Infarction: Yes (X 2) Radiation Therapy: No Renal Failure: No Sickle Cell Disease: No Sleep Apnea: Yes Thyroid Disease: No Ulcer: No Past Surgical History Abdominal Surgery: Yes (APPENDECTOMY 1954) AICD: No Appendectomy: Yes Arteriovenous Shunt: No Body Medical Devices: BRAIN CLIPS, INFUSAPORT TO RIGHT CHEST Cardiac Surgery: No Cholecystectomy: No Ear Surgery: No Endocrine Surgery: No Eye Surgery: No Genitourinary Surgery: No Gynecologic Surgery: No Insulin Pump: No Joint Replacement: No Neurologic Surgery: Yes (BRAIN ANURYSIM CLIPPED IN 1990.) Oral Surgery: No Pacemaker: No Thoracic Surgery: Yes (TENSION PNEUMOTHORAX-CHEST TUBE --RIGHT 71) Tonsillectomy: Yes (1956) Other Surgery: Yes (brain and back sx) Social History Alcohol Use: No Tobacco Use: Yes (1 ppd 3 hrs ago) Substance Use: No Allergies-Medications (Allergen,Severity, Reaction): Coded Allergies: MRI PRECAUTION (Verified Allergy, Severe, ANEURSYM CLIPPING, 03/26/17) diatrizoate meglumine (Unverified Allergy, Severe, SHOCK, 04/30/17) gadobenic acid (Unverified Allergy, Severe, SHOCK, 04/30/17) gadodiamide (Unverified Allergy, Severe, SHOCK, 04/30/17) gadoteridol (Unverified Allergy, Severe, SHOCK, 04/30/17) iodine (Unverified Allergy, Severe, 04/30/17) iodixanol (Unverified Allergy, Severe, SHOCK, 04/30/17) iohexol (Unverified Allergy, Severe, SHOCK, 04/30/17) potassium iodide (Unverified Allergy, Severe, 04/30/17) povidone-iodine (Unverified Allergy, Severe, 04/30/17) sodium iodide (Unverified Allergy, Severe, 04/30/17) sodium iodide (Unverified Allergy, Severe, 04/30/17) Comments List of his allergies reviewed from the nursing note. Reported Meds & Prescriptions Reported Meds & Active Scripts Active Nystatin Topical 100,000 unit/gm Oint 1 Applic TOPICAL Q12HR Dilaudid (Hydromorphone HCl) 2 Mg Tab 2 Mg PO DAILY PRN Gratis (Hydrocodone-Acetaminophen) 5-325 mg Tab 1 Tab PO Q6H PRN Coumadin (Warfarin) 2 Mg Tab 2 Mg PO DAILY Lactobacillus Acidophilus 1 Tab Tab 1 Tab PO TIDAC Augmentin (Amoxicillin-Clavulanate) 875-125 Mg Tab 1 Tab PO BID Warfarin 5 Mg Tab 5 Mg PO DAILY repeat INR in 1-2 days. Your doctor will adjust it accordingly. Reported Lyrica (Pregabalin) 100 Mg Cap 100 Mg PO TID Glipizide 10 Mg Tab 20 Mg PO BID Take 30 minutes before a meal Venlafaxine ER 24 HR (Venlafaxine HCl) 150 Mg Tab 300 Mg PO DAILY Potassium Chloride ER (Potassium Chloride) 10 Meq Cap 10 Meq PO DAILY Primidone 50 Mg Tab 50 Mg PO TID Pravastatin 20 Mg Tab 20 Mg PO HS Metformin (Metformin HCl) 500 Mg Tab 1,000 Mg PO DAILY IN THE PM Metformin (Metformin HCl) 500 Mg Tab 1,500 Mg PO DAILY IN THE AM Spironolactone 25 Mg Tab 25 Mg PO DAILY Gabapentin 100 Mg Cap 100 Mg PO Q6HR Baclofen 10 Mg Tab 10 Mg PO TID Narrative Medication List of his home medications reviewed from the nursing note. Review of Systems Except as stated in HPI: all other systems reviewed are Neg Physical Exam Narrative GENERAL: Confused, morbidly obese, moderate distress, disheveled and poor skin hygiene SKIN: Focused skin assessment warm/dry. Significant candidal infection underneath both breasts as well as groin area, extremely poor skin hygiene HEAD: Atraumatic. Normocephalic. EYES: Pupils equal and round. No scleral icterus. No injection or drainage. ENT: No nasal bleeding or discharge. Mucous membranes pink and moist. NECK: Trachea midline. No JVD. CARDIOVASCULAR: Regular rate and rhythm. No murmur appreciated. RESPIRATORY: No accessory muscle use. Clear to auscultation. Breath sounds equal bilaterally. GASTROINTESTINAL: Abdomen soft, non-tender, nondistended. Hepatic and splenic margins not palpable. MUSCULOSKELETAL: No obvious deformities. No clubbing. No cyanosis. No edema. Left leg BKA, right leg significantly edematous and wrapped in bandage. Significant lymphedema. NEUROLOGICAL: Awake and possibly confused. No obvious cranial nerve deficits. Motor grossly within normal limits. Normal speech. PSYCHIATRIC: Appropriate mood and affect; insight and judgment normal. Data Data Last Documented VS Vital Signs Date Time Temp Pulse Resp B/P Pulse Ox O2 Delivery O2 Flow Rate FiO2 04/29/17 09:36 93 16 138/71 100 Venturi Mask 6 04/29/17 07:24 98.3 Orders Electrocardiogram (04/29/17 07:21) Ammonia (04/29/17 07:21) Complete Blood Count With Diff (04/29/17 07:21) Comprehensive Metabolic Panel (04/29/17 07:21) Creatine Kinase (Cpk) (04/29/17 07:21) Prothrombin Time / Inr (Pt) (04/29/17 07:21) Troponin I (04/29/17 07:21) Thyroid Stimulating Hormone (04/29/17 07:21) Urinalysis - C+S If Indicated (04/29/17 07:21) Lactic Acid Sepsis Protocol (04/29/17 07:21) Arterial Blood Gas (Abg) (04/29/17 07:21) Blood Culture (04/29/17 07:21) Chest, Single Ap (04/29/17 07:21) Ct Brain W/O Iv Contrast(Rout) (04/29/17 07:21) Blood Glucose (04/29/17 07:21) Ecg Monitoring (04/29/17 07:21) Iv Access Insert/Monitor (04/29/17 07:21) Oximetry (04/29/17 07:21) Sodium Chloride 0.9% Flush (Ns Flush) (04/29/17 07:30) Drug Screen, Random Urine (04/29/17 07:21) Alcohol (Ethanol) (04/29/17 07:21) Tylenol (Acetaminophen) (04/29/17 07:21) Salicylates (Aspirin) (04/29/17 07:21) Vascular Access Team Consult/P PRN (04/29/17 08:00) Vascular Poc Ultrasound (04/29/17 ) Urinary Catheter Insert/Apply (04/29/17 08:01) Arterial Blood Gas (Abg) (04/29/17 ) Furosemide Inj (Lasix Inj) (04/29/17 09:00) Urine Culture (04/29/17 09:45) Admit Order (Ed Use Only) (04/29/17 10:26) Heparin Infusion CURT.Q1H (04/29/17 10:26) Heparin Inj (Heparin Inj) (04/29/17 10:30) Heparin Inj (Heparin Inj) (04/29/17 16:30) Heparin Inj (Heparin Inj) (04/29/17 16:30) Heparin-D5w Inj (Heparin-D5w Inj) (04/29/17 10:30) Act Partial Throm Time (Ptt) (04/29/17 10:26) Cbc No Diff, Includes Plts (05/02/17 06:00) Act Partial Throm Time (Ptt) (04/29/17 17:26) Occult Blood (Hemoccult) Stool (04/29/17 10:26) Labs Laboratory Tests Test 04/29/17 04/29/17 04/29/17 04/29/17 07:32 07:50 09:09 09:10 Sodium Level 138 MEQ/L Potassium Level 4.9 MEQ/L Chloride Level 104 MEQ/L Carbon Dioxide Level 24.9 MEQ/L Anion Gap 9 MEQ/L Blood Urea Nitrogen 12 MG/DL Creatinine 0.85 MG/DL Estimat Glomerular Filtration 91 ML/MIN Rate Random Glucose 174 MG/DL Calcium Level 8.3 MG/DL Total Bilirubin 0.4 MG/DL Aspartate Amino Transf 32 U/L (AST/SGOT) Alanine Aminotransferase 9 U/L (ALT/SGPT) Alkaline Phosphatase 51 U/L Total Creatine Kinase 84 U/L Troponin I LESS THAN 0.02 NG/ML Total Protein 8.4 GM/DL Albumin 2.3 GM/DL Thyroid Stimulating Hormone 2.840 uIU/ML 3rd Gen Acetaminophen Level LESS THAN 2.0 MCG/ML Ethyl Alcohol Level LESS THAN 3 MG/DL White Blood Count 13.4 TH/MM3 Red Blood Count 4.08 MIL/MM3 Hemoglobin 10.5 GM/DL Hematocrit 33.3 % Mean Corpuscular Volume 81.6 FL Mean Corpuscular Hemoglobin 25.8 PG Mean Corpuscular Hemoglobin 31.6 % Concent Red Cell Distribution Width 19.3 % Platelet Count 298 TH/MM3 Mean Platelet Volume 8.2 FL Neutrophils (%) (Auto) 72.8 % Lymphocytes (%) (Auto) 15.9 % Monocytes (%) (Auto) 5.6 % Eosinophils (%) (Auto) 4.9 % Basophils (%) (Auto) 0.8 % Neutrophils # (Auto) 9.8 TH/MM3 Lymphocytes # (Auto) 2.1 TH/MM3 Monocytes # (Auto) 0.7 TH/MM3 Eosinophils # (Auto) 0.7 TH/MM3 Basophils # (Auto) 0.1 TH/MM3 CBC Comment DIFF FINAL Differential Comment Blood Gas Puncture Site LT BRACHIAL LT BRACHIAL Blood Gas Patient Temperature 98.6 98.6 Blood Gas HCO3 28 mmol/L 29 mmol/L Blood Gas Base Excess 3.1 mmol/L 4.3 mmol/L Blood Gas Oxygen Saturation 89 % 93 % Arterial Blood pH 7.35 7.37 Arterial Blood Partial 53 mmHg 52 mmHg Pressure CO2 Arterial Blood Partial 76 mmHg 114 mmHG Pressure O2 Arterial Blood Oxygen Content 12.6 Vol % 13.1 Vol % Arterial Blood 5.9 % 4.9 % Carboxyhemoglobin Arterial Blood Methemoglobin 0.8 % 0.4 % Blood Gas Hemoglobin 10.0 G/DL 9.9 G/DL Oxygen Delivery Device NASAL CANNULA VENTI MASK Blood Gas Liter Flow 3 L/M 6 L/M Blood Gas Inspired Oxygen 32 % 50 % Prothrombin Time 13.7 SEC Prothromb Time International 1.2 RATIO Ratio Activated Partial 33.7 SEC Thromboplast Time Lactic Acid Level 1.7 mmol/L Ammonia 15 MCMOL/L Test 04/29/17 04/29/17 09:45 10:05 Urine Opiates Screen NEG Urine Barbiturates Screen POS Urine Amphetamines Screen NEG Urine Benzodiazepines Screen NEG Urine Cocaine Screen NEG Urine Cannabinoids Screen NEG Urine Color YELLOW Urine Turbidity CLEAR Urine pH 5.5 Urine Specific [place] 1.011 Urine Protein TRACE mg/dL Urine Glucose (UA) NEG mg/dL Urine Ketones NEG mg/dL Urine Occult Blood NEG Urine Nitrite NEG Urine Bilirubin NEG Urine Urobilinogen LESS THAN 2.0 MG/DL Urine Leukocyte Esterase MOD Urine RBC 1 /hpf Urine WBC 10 /hpf Urine Squamous Epithelial <1 /hpf Cells Urine Transitional Epithelial <1 /hpf Cells Urine Calcium Oxalate Crystals RARE /hpf Urine Bacteria OCC /hpf Urine Mucus FEW /lpf Microscopic Urinalysis Comment CATH-CULTURE IND Salicylates Level 3.1 MG/DL MDM Medical Decision Making Medical Screen Exam Complete: Yes Emergency Medical Condition: Yes Medical Record Reviewed: Yes Interpretation(s) Twelve-lead EKG was reviewed by me. Normal sinus rhythm, normal axis, tachycardia, nonspecific ST-T wave changes. Heart rate of 102 bpm. Differential Diagnosis Intracranial hemorrhage, pneumonia, congestive heart failure, COPD exacerbation , metabolic encephalopathy Narrative Course 9:25 AM chest x-ray suggestive of increased interstitial edema. Patient was given Lasix. Most of the blood test result is back. Patient has some leukocytosis. He is anemic. ABG suggestive of carboxyhemoglobinemia. Patient is a heavy smoker. However his symptoms do correlate with carboxyhemoglobinemia as well. I asked the respiratory therapist put him on high flow oxygen and a repeat blood gas was done. The repeat carboxyhemoglobin was little bit improved. Awaiting for the INR. If the INR is therapeutic chances of this being PE would be extremely unlikely. Patient unfortunately is allergic to the IV contrast. I have decided to admit him. CT of the head was within normal limits. Awaiting for the residents to call back. Critical Care Narrative Aggregate critical care time was 45 minutes. Time to perform other separately billable procedures was not included in the critical care time. My time did not include minutes spent treating any other patients simultaneously or on activities that did not directly contribute to the patient's treatment. The services I provided to this patient were to treat and/or prevent clinically significant deterioration that could result in: Altered mental status, hypoxia, carboxy hemoglobinemia I provided critical care services requiring my management, as noted below: Chart data review, documentation time, medication orders and management, vital sign assessments/reviewing monitor data, ordering and reviewing lab tests, ordering and interpreting/reviewing x-rays and diagnostic studies, care of the patient and discussion of the patient with the admitting physicians. 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
[2017-04-29] MEDS ORDERED: SODIUM CHLORIDE 0.9% FLUSH 5 ML FLUSH IV FLUSH PRN (07:30)
[2017-04-29 07:52] LABS: AUTOMATED NEUTROPHIL # 9.8 TH/MM3 (1.8-7.7); BASOPHIL # 0.1 TH/MM3 (0-0.2); BASOPHIL % 0.8 % (0.0-2.0); EOSINOPHIL # 0.7 TH/MM3 (0-0.4); EOSINOPHIL % 4.9 % (0.0-4.0); HEMATOCRIT 33.3 % (39.0-51.0); HEMO FLAGS DIFF FINAL; LYMPH % 15.9 % (9.0-44.0); LYMPHOCYTE # 2.1 TH/MM3 (1.0-4.8); MEAN CELL VOLUME 81.6 FL (80.0-100.0); MEAN CORPUSCULAR HEMOGLOBIN 25.8 PG (27.0-34.0); MEAN CORPUSCULAR HGB CONC 31.6 % (32.0-36.0); MONO % 5.6 % (0.0-8.0); NEUT % 72.8 % (16.0-70.0); PLATELET COUNT 298 TH/MM3 (150-450); RED BLOOD COUNT 4.08 MIL/MM3 (4.50-5.90); RED CELL DISTRIBUTION WIDTH 19.3 % (11.6-17.2); WHITE BLOOD COUNT 13.4 TH/MM3 (4.0-11.0)
[2017-04-29 08:09] LABS: BLOOD GAS BASE EXCESS 3.1 mmol/L (-2-2); BLOOD GAS CARBOXYHEMOGLOBIN 5.9 % (0-4); BLOOD GAS HCO3 28 mmol/L (22-26); BLOOD GAS METHEMOGLOBIN 0.8 % (0-2); BLOOD GAS O2 HGB SATURATION 89 % (90-100); BLOOD GAS OXYGEN CONTENT 12.6 Vol % (12.0-20.0); BLOOD GAS PCO2 53 mmHg (38-42); BLOOD GAS PO2 76 mmHg (61-120); CRITICAL VALUE YES; DRAW SITE LT BRACHIAL; FIO2 32 %; LITER FLOW 3 L/M; NUMBER OF ARTERIAL PUNCTURES 2; OXYGEN DEVICE NASAL CANNULA; STAT YES; TEMP CORR TO 98.6
[2017-04-29 08:10] LABS: ANION GAP 9 MEQ/L (5-15)
[2017-04-29 08:14] LABS: ALKALINE PHOSPHATASE 51 U/L (45-117); ALT (GPT) 9 U/L (12-78); AST (GOT) 32 U/L (15-37); BICARBONATE 24.9 MEQ/L (21.0-32.0); BLOOD UREA NITROGEN 12 MG/DL (7-18); CHLORIDE 104 MEQ/L (98-107); GLOMERULAR FILTRATION RATE 91 ML/MIN (>89); SODIUM (NA) 138 MEQ/L (136-145); TOTAL BILIRUBIN ADULT 0.4 MG/DL (0.2-1.0)
[2017-04-29 08:24] LABS: ACETAMINOPHEN LESS THAN 2.0 MCG/ML (10.0-30.0); ALCOHOL LESS THAN 3 MG/DL (0-5); CREATINE KINASE 84 U/L (39-308); POTASSIUM 4.9 MEQ/L (3.5-5.1)
--- NOTE | 2017-04-29 08:37 | RADRPT ---
EXAM DATE/TIME: 04/29/2017 07:55 [facility] COMPARISON: CT BRAIN W/O CONTRAST, June 26, 2016, 14:02. INDICATIONS : Altered mental status RADIATION DOSE: 55.69 CTDIvol (mGy) ; Patient motion MEDICAL HISTORY : Cardiovascular disease. Diabetes mellitus type 1. Chronic obstructive pulmonary disease. SURGICAL HISTORY : Appendectomy. ENCOUNTER: Initial ACUITY: 1 day PAIN SCALE: Non-responsive LOCATION: cranial TECHNIQUE: Multiple contiguous axial images were obtained of the head. Using automated exposure control and adj ustment of the mA and/or kV according to patient size, radiation dose was kept as low as reasonably a chievable to obtain optimal diagnostic quality images. DICOM format image data is available electro nically for review and comparison. FINDINGS: CEREBRUM: Evidence for previous aneurysm clipping and surgery is noted. The ventricles are normal for age. No evidence of midline shift, mass lesion, hemorrhage or acute infarction. No extra-axial fluid collec tions are seen. POSTERIOR FOSSA: The cerebellum and brainstem are intact. The 4th ventricle is midline. The cerebellopontine angle i s unremarkable. EXTRACRANIAL: The visualized portion of the orbits is intact. SKULL: The calvaria is intact. No evidence of skull fracture. CONCLUSION: Negative for an acute process. Abdulkadir Whitaker MD FACR on April 29, 2017 at 8:33 Board Certified Radiologist. This report was verified electronically.
--- NOTE | 2017-04-29 08:39 | RADRPT ---
EXAM DATE/TIME: 04/29/2017 08:07 [facility] COMPARISON: CHEST SINGLE AP, March 27, 2017, 0:20. INDICATIONS : Dyspnea. MEDICAL HISTORY : None. SURGICAL HISTORY : None. ENCOUNTER: Initial ACUITY: 1 day PAIN SCORE: Non-responsive. LOCATION: Bilateral chest FINDINGS: [id number] in good position. The heart is enlarged. Mild interstitial edema is present. There i s no consolidation, pleural effusion or pneumothorax. CONCLUSION: Mild interstitial edema. Abdulkadir Whitaker MD FACR on April 29, 2017 at 8:37 Board Certified Radiologist. This report was verified electronically.
[2017-04-29] MEDS ORDERED: FUROSEMIDE 40 MG/4 ML VIAL IV PUSH ONE (09:00)
[2017-04-29 09:31] LABS: BLOOD GAS BASE EXCESS 4.3 mmol/L (-2-2); BLOOD GAS CARBOXYHEMOGLOBIN 4.9 % (0-4); BLOOD GAS HCO3 29 mmol/L (22-26); BLOOD GAS METHEMOGLOBIN 0.4 % (0-2); BLOOD GAS O2 HGB SATURATION 93 % (90-100); BLOOD GAS OXYGEN CONTENT 13.1 Vol % (12.0-20.0); BLOOD GAS PCO2 52 mmHg (38-42); BLOOD GAS PO2 114 mmHG (61-120); BLOOD GAS TOTAL HGB 9.9 G/DL (12.0-16.0); CRITICAL VALUE YES; DRAW SITE LT BRACHIAL; FIO2 50 %; LITER FLOW 6 L/M; NUMBER OF ARTERIAL PUNCTURES 1; OXYGEN DEVICE VENTI MASK; STAT YES; TEMP CORR TO 98.6
[2017-04-29 09:40] LABS: INTERNATIONAL NORMALIZED RATIO 1.2 RATIO; PROTHROMBIN TIME - PATIENT 13.7 SEC (9.8-11.6)
[2017-04-29 10:12] LABS: BACTERIA, URINE OCC /hpf; BLOOD, URINE NEG (NEG); CALCIUM OXALATE CRYSTALS,URINE RARE /hpf; GLUCOSE,URINE NEG (NEG); KETONE, URINE NEG (NEG); MUCUS URINE FEW /lpf (OCC); NITRITE,URINE NEG (NEG); PH, URINE 5.5 (5.0-8.5); SQUAMOUS EPITHELIAL CELL URINE <1 /hpf (0-5); TRANSITIONAL EPI CELLS, URINE <1 /hpf; URINE COLOR YELLOW (YELLW/STRAW)
[2017-04-29 10:15] LABS: COMMENT (UR) CATH-CULTURE IND; CULTURE IF INDICATED CATH CULTURE IND
[2017-04-29] MEDS ORDERED: HEPARIN SODIUM - IV 10,000 UNITS/10 ML VIAL IV ONE (10:30)
[2017-04-29] MEDS ORDERED: LACTULOSE SYRUP 20 GM/30 ML CUP PO PRN (11:00)
[2017-04-29] MEDS ORDERED: BISACODYL 10 MG SUPP RECTAL PRN (11:00)
[2017-04-29] MEDS ORDERED: NALOXONE HCL 0.4 MG/ML AMP IV PRN (11:00)
[2017-04-29] MEDS ORDERED: ACETAMINOPHEN 325 MG TAB PO PRN (11:00)
[2017-04-29] MEDS ORDERED: SODIUM CHLORIDE 0.9% FLUSH 10 ML FLUSH IV FLUSH PRN (11:00)
[2017-04-29] MEDS ORDERED: SENNOSIDES 8.6 MG TAB PO PRN (11:00)
[2017-04-29] MEDS ORDERED: MAGNESIUM HYDROXIDE SUSP 30 ML CUP PO PRN (11:00)
[2017-04-29 11:36] LABS: APTT (PATIENT) 33.7 SEC (24.3-30.1)
[2017-04-29] MEDS ORDERED: DEXTROSE 50% IN WATER 50 ML VIAL(D50) IV PRN (11:45)
[2017-04-29] MEDS ORDERED: GLUCAGON 1 MG/ML VIAL OTHER PRN (11:45)
[2017-04-29] MEDS ORDERED: ACETAMINOPHEN/HYDROcodone 325 MG/5 MG TAB PO PRN (12:00)
[2017-04-29] MEDS ORDERED: LEVOFLOXACIN 750 MG PREMIX INJ 150 ML IV SCH (12:00)
--- NOTE | 2017-04-29 12:06 | HHI.HP ---
cc: [facility] HPI Service [facility] Hospitalists Primary Care Physician [facility] Admission Diagnosis hypoxia, CHF, carboxyhemoglobinemia, AMS Diagnoses: (1) Altered mental status Diagnosis: Principal (2) Hypoxia Diagnosis: Principal (3) Congestive heart failure Diagnosis: Secondary (4) Infection associated with lymphedema Diagnosis: Secondary (5) Venous stasis dermatitis of right lower extremity Diagnosis: Secondary (6) Obesity (BMI 30-39.9) Diagnosis: Principal (7) Diabetes mellitus type 2, uncontrolled Diagnosis: Principal (8) Wound infection Diagnosis: Principal (9) Tobacco abuse (10) Cellulitis Diagnosis: Principal (11) Cellulitis of right leg Diagnosis: Principal (12) Atrial fibrillation Diagnosis: Principal Chief Complaint: Dizziness AMS Travel History International Travel<30 Days: No Contact w/Intl Traveler <30 Da: No Traveled to Known Affected Are: No History of Present Illness This is a 62-year-old male with a past medical history significant for HTN, DM, HLD, CAD s/p previous ME, CVA, PAD, h/o DVT on chronic anticoagulation, history of brain aneurysm status post clipping and chronic RLE lymphedema with recurrent cellulitic infection who presents to [facility] ED after being brought in by EMS due to patient becoming dizzy, sliding out of his wheelchair and being unable to get himself back into the wheelchair. Patient appears sedated at present. He does arouse to voice but appears to fall back asleep easily and will only respond to some questions. Therefore history is obtained from discussion with the patient directly as well as review of the computerized medical record. Patient reports a sudden onset of dizziness causing him to slide out of his wheelchair. He denies hitting his head or losing consciousness. He contacted the fire department after he was unable to get himself back into the wheelchair. Patient is morbidly obese and has a history of a left AKA as well as chronic lymphedema in the right lower extremity. Patient denies any associated complaints of recent illness, cough, chest pain, palpitations, shortness of breath, nausea, vomiting or abdominal pain. Patient denies any complaints of hematuria, dysuria, hematochezia or diarrhea. Patient states that he felt fine yesterday without any complaints. Patient was just hospitalized in our facility last month for treatment for recurrent right leg cellulitis. Patient is unclear on the medications he takes home and does not know dosages. Per the ED note, patient's blood sugar was stable while on route with EMS. He was noted to have a oxygen saturation of 88 % on room air upon his arrival. Patient does not require the use of oxygen at home. In the ED, chest x-ray was suggestive of increased interstitial edema. Patient was given Lasix. He was also noted to have some leukocytosis. ABG was suggestive of carboxyhemoglobinemia. Patient was placed on a Ventimask and repeat ABG was somewhat improved. CT of the head was obtained and was within normal limits. INR was subtherapeutic at 1.2. VQ scan is pending. PATIENT IS CONFUSED AND NOT A GOOD HISTORIAN. HISTORY FROM ER, SOME FROM PATIENT , AND MOST FROM OLD RECORDS. [facility] Review of Systems Constitutional: COMPLAINS OF: Fatigue, Dizziness, DENIES: Diaphoretic episodes , Fever, Weight gain, Weight loss, Chills Endocrine: DENIES: Heat/cold intolerance, Polydipsia Eyes: DENIES: Blurred vision, Diplopia, Eye inflammation, Eye pain Ears, nose, mouth, throat: DENIES: Tinnitus, Hearing loss, Vertigo Respiratory: COMPLAINS OF: Cough, DENIES: Apneas, Snoring, Wheezing Cardiovascular: COMPLAINS OF: Syncope, DENIES: Chest pain, Palpitations, Dyspnea on Exertion Gastrointestinal: DENIES: Abdominal pain Musculoskeletal: DENIES: Joint pain, Muscle aches Neurologic: COMPLAINS OF: Abnormal gait, DENIES: Headache, Localized weakness , Paresthesias Psychiatric: COMPLAINS OF: Confusion Except as stated in HPI: all other systems reviewed are Neg Past Family Social History Past Medical History OA h/o osteomyelitis DM type 2 CAD h/o ME x 2 brain aneurysm CVA x 3 h/o DVT on chronic anticoagulation h/o MRSA infection chronic RLE lymphedema Recurrent cellulitis right lower extremity PAD s/p left leg amputation Depression Neuropathy History of agent orange exposure Past Surgical History brain aneurysm clipping 1990 Left AKA Cholecystectomy Appendectomy Tonsillectomy Hemorrhoidectomy Port placement Reported Medications Nystatin Topical 100,000 unit/gm Oint 1 Applic TOPICAL Q12HR Dilaudid (Hydromorphone HCl) 2 Mg Tab 2 Mg PO DAILY PRN Marion (Hydrocodone-Acetaminophen) 5-325 mg Tab 1 Tab PO Q6H PRN Coumadin (Warfarin) 2 Mg Tab 2 Mg PO DAILY Lactobacillus Acidophilus 1 Tab Tab 1 Tab PO TIDAC Augmentin (Amoxicillin-Clavulanate) 875-125 Mg Tab 1 Tab PO BID Warfarin 5 Mg Tab 5 Mg PO DAILY repeat INR in 1-2 days. Your doctor will adjust it accordingly. Lyrica (Pregabalin) 100 Mg Cap 100 Mg PO TID Glipizide 10 Mg Tab 20 Mg PO BID Take 30 minutes before a meal Venlafaxine ER 24 HR (Venlafaxine HCl) 150 Mg Tab 300 Mg PO DAILY Diltiazem CD 24 HR 240 Mg Caper 240 Mg PO DAILY Potassium Chloride ER (Potassium Chloride) 10 Meq Cap 10 Meq PO DAILY Primidone 50 Mg Tab 50 Mg PO TID Pravastatin 20 Mg Tab 20 Mg PO HS Metformin (Metformin HCl) 500 Mg Tab 1,000 Mg PO DAILY IN THE PM Metformin (Metformin HCl) 500 Mg Tab 1,500 Mg PO DAILY IN THE AM Spironolactone 25 Mg Tab 25 Mg PO DAILY Gabapentin 100 Mg Cap 100 Mg PO Q6HR Baclofen 10 Mg Tab 10 Mg PO TID Allergies: Coded Allergies: Betadine (Verified Allergy, Severe, 03/26/17) Contrast Media (Verified Allergy, Severe, SHOCK, 03/26/17) Iodine (Verified Allergy, Severe, 03/26/17) MRI PRECAUTION (Verified Allergy, Severe, ANEURSYM CLIPPING, 03/26/17) Active Ordered Medications Current Medications Medications (Trade) Dose Ordered Sig/Carrie Route Start Time Stop Time Status Last Admin (NS Flush) 2 ml UNSCH PRN IV FLUSH 04/29/17 07:30 (Heparin Inj) 5,000 units UNSCH PRN IV 04/29/17 16:30 Heparin Sodium (Porcine) 2500 units 2,500 units UNSCH PRN IV 04/29/17 16:30 (Heparin-D5W Inj) 250 ml @ 0 mls/hr TITRATE IV 04/29/17 10:30 (NS Flush) 2 ml UNSCH PRN IV FLUSH 04/29/17 11:00 (NS Flush) 2 ml BID IV FLUSH 04/29/17 21:00 (Tylenol) 650 mg Q4H PRN PO 04/29/17 11:00 (Zofran Inj) 4 mg Q6H PRN IVP 04/29/17 11:00 (Narcan Inj) 0.4 mg UNSCH PRN IV 04/29/17 11:00 (Albertina-Colace) 1 tab BID PO 04/29/17 21:00 (Milk Of Magnesia Liq) 30 ml Q12H PRN PO 04/29/17 11:00 UNV (Senokot) 17.2 mg Q12H PRN PO 04/29/17 11:00 UNV (Dulcolax Supp) 10 mg DAILY PRN RECTAL 04/29/17 11:00 UNV (Lactulose Liq) 30 ml DAILY PRN PO 04/29/17 11:00 UNV Family History Patient is adopted and does not know his biological family history Social History Patient has a history of tobacco use of half pack per day for the past 51 years. Denies any alcohol use or illicit drug use. Physical Exam Vital Signs Vital Signs Date Time Temp Pulse Resp B/P Pulse Ox O2 Delivery O2 Flow Rate FiO2 04/29/17 09:36 93 16 138/71 100 Venturi Mask 6 04/29/17 08:59 94 18 167/67 96 Nasal Cannula 2 04/29/17 07:24 98.3 99 Nasal Cannula 2 04/29/17 07:24 90 04/29/17 07:18 103 18 142/67 97 Physical Exam GENERAL: This is a well-nourished, well-developed morbidly obese patient. Sedated. Awakens to voice. SKIN: No rashes, ecchymoses or lesions. Cool and dry. HEAD: Atraumatic. Normocephalic. No temporal or scalp tenderness. EYES: Pupils equal round and reactive. Extraocular motions intact. No scleral icterus. No injection or drainage. ENT: Nose without bleeding or purulent drainage. Throat without erythema, tonsillar hypertrophy or exudate. Uvula midline. Airway patent. NECK: Trachea midline. No JVD or lymphadenopathy. Supple, nontender, no meningeal signs. CARDIOVASCULAR: Regular rate and rhythm without murmurs, gallops, or rubs. RESPIRATORY: Clear to auscultation but poor effort. Breath sounds equal bilaterally. No wheezes, rales, or rhonchi. GASTROINTESTINAL: Abdomen soft, non-tender, nondistended. No hepato-splenomegaly , or palpable masses. No guarding. MUSCULOSKELETAL: (+)lymphedema RLE. s/p left AKA. NEUROLOGICAL: Lethargic. Will follow some commands. Able to move all extremities. Normal speech. Laboratory Laboratory Tests Test 04/29/17 04/29/17 04/29/17 04/29/17 07:32 07:50 09:09 09:10 White Blood Count 13.4 Red Blood Count 4.08 Hemoglobin 10.5 Hematocrit 33.3 Mean Corpuscular Volume 81.6 Mean Corpuscular Hemoglobin 25.8 Mean Corpuscular Hemoglobin 31.6 Concent Red Cell Distribution Width 19.3 Platelet Count 298 Mean Platelet Volume 8.2 Neutrophils (%) (Auto) 72.8 Lymphocytes (%) (Auto) 15.9 Monocytes (%) (Auto) 5.6 Eosinophils (%) (Auto) 4.9 Basophils (%) (Auto) 0.8 Neutrophils # (Auto) 9.8 Lymphocytes # (Auto) 2.1 Monocytes # (Auto) 0.7 Eosinophils # (Auto) 0.7 Basophils # (Auto) 0.1 CBC Comment DIFF FINAL Differential Comment Sodium Level 138 Potassium Level 4.9 Chloride Level 104 Carbon Dioxide Level 24.9 Anion Gap 9 Blood Urea Nitrogen 12 Creatinine 0.85 Estimat Glomerular Filtration 91 Rate Random Glucose 174 Calcium Level 8.3 Total Bilirubin 0.4 Aspartate Amino Transf 32 (AST/SGOT) Alanine Aminotransferase 9 (ALT/SGPT) Alkaline Phosphatase 51 Total Creatine Kinase 84 Troponin I LESS THAN 0.02 Total Protein 8.4 Albumin 2.3 Thyroid Stimulating Hormone 2.840 3rd Gen Acetaminophen Level LESS THAN 2.0 Ethyl Alcohol Level LESS THAN 3 Blood Gas Puncture Site LT BRACHIAL LT BRACHIAL Blood Gas Patient Temperature 98.6 98.6 Blood Gas HCO3 28 29 Blood Gas Base Excess 3.1 4.3 Blood Gas Oxygen Saturation 89 93 Arterial Blood pH 7.35 7.37 Arterial Blood Partial 53 52 Pressure CO2 Arterial Blood Partial 76 114 Pressure O2 Arterial Blood Oxygen Content 12.6 13.1 Arterial Blood 5.9 4.9 Carboxyhemoglobin Arterial Blood Methemoglobin 0.8 0.4 Blood Gas Hemoglobin 10.0 9.9 Oxygen Delivery Device NASAL CANNULA VENTI MASK Blood Gas Liter Flow 3 6 Blood Gas Inspired Oxygen 32 50 Prothrombin Time 13.7 Prothromb Time International 1.2 Ratio Lactic Acid Level 1.7 Ammonia 15 Test 04/29/17 04/29/17 09:45 10:05 Urine Color YELLOW Urine Turbidity CLEAR Urine pH 5.5 Urine Specific [place] 1.011 Urine Protein TRACE Urine Glucose (UA) NEG Urine Ketones NEG Urine Occult Blood NEG Urine Nitrite NEG Urine Bilirubin NEG Urine Urobilinogen LESS THAN 2.0 Urine Leukocyte Esterase MOD Urine RBC 1 Urine WBC 10 Urine Squamous Epithelial <1 Cells Urine Transitional Epithelial <1 Cells Urine Calcium Oxalate Crystals RARE Urine Bacteria OCC Urine Mucus FEW Microscopic Urinalysis Comment CATH-CULTURE IND Urine Opiates Screen NEG Urine Barbiturates Screen POS Urine Amphetamines Screen NEG Urine Benzodiazepines Screen NEG Urine Cocaine Screen NEG Urine Cannabinoids Screen NEG Salicylates Level 3.1 Date/Time Procedure Status Source Growth 04/29/17 09:45 Urine Culture Received Urine Catheterized Urine Pending 04/29/17 09:20 Aerobic Blood Culture Received Blood Peripheral Pending 04/29/17 09:20 Anaerobic Blood Culture Received Blood Peripheral Pending Result Diagram: 04/29/17 0732 04/29/17731 Imaging Last Impressions Head CT 04/29/17720 Signed Impressions: Service Date/Time: Saturday, April 29, 2017 07:55 - CONCLUSION: Negative for an acute process. Abdulkadir Whitaker MD FACR Chest X-Ray 04/29/17720 Signed Impressions: Service Date/Time: Saturday, April 29, 2017 08:07 - CONCLUSION: Mild interstitial edema. Abdulkadir Whitaker MD FACR Assessment and Plan Problem List: (1) Noncompliance ICD Code: Z91.19 Status: Acute (2) Altered mental status ICD Code: R41.82 Status: Acute (3) Hypoxia ICD Code: R09.02 Status: Acute (4) Congestive heart failure ICD Code: I50.9 Status: Acute (5) Infection associated with lymphedema ICD Code: B99.9 Status: Acute (6) Obesity (BMI 30-39.9) ICD Code: E66.9 Status: Chronic (7) Venous stasis dermatitis of right lower extremity ICD Code: I87.2 Status: Acute (8) Diabetes mellitus type 2, uncontrolled ICD Code: E11.9 Status: Chronic (9) Wound infection ICD Code: T14.8 Status: Acute (10) Tobacco abuse ICD Code: Z72.0 Status: Chronic (11) Cellulitis ICD Code: L03.90 Status: Acute (12) Cellulitis of right leg ICD Code: L03.115 Status: Acute (13) COPD (chronic obstructive pulmonary disease) ICD Code: J44.9 Status: Chronic (14) History of MRSA infection ICD Code: Z86.14 Assessment and Plan 62-year-old male with a past medical history significant for HTN, DM , HLD, CAD s/p previous ME, CVA, PAD, h/o DVT on chronic anticoagulation, history of brain aneurysm status post clipping and chronic RLE lymphedema with recurrent cellulitic infection who presents to [facility] ED after being brought in by EMS due to patient becoming dizzy, sliding out of his wheelchair and being unable to get himself back into the wheelchair. He was noted to be hypoxic with a oxygen saturation of 88% on room air and ABGs showing carboxyhemoglobinemia. Acute hypoxic respiratory failure AMS/Hypoxic encephalopathy Carboxyhemoglobinemia ABG personally reviewed CT head personally reviewed and negative for acute process hold home opiates and baclofen Continue respiratory support with supplemental oxygen Suspect CHF exacerbation Chest x-ray personally reviewed shows interstitial edema Patient was given Lasix in the ED continue on home dose of Spironolactone 25mg daily Last echocardiogram in the system dated 06/26/16 shows a normal systolic function with EF of 55-60% and no WMA Will repeat echocardiogram obtain BNP level strict I&Os H/O DVT on chronic anticoagulation Subtherapeutic INR probable medication noncompliance INR 1.2. Patient placed on Heparin drip. Resume Coumadin 10MG PO DAILY NOW. Monitor INR. Pharmacy to dose. V/Q scan pending Leukocytosis UTI patient with indwelling rose catheter UA positive for moderate leukocytes, 10 WBCs, occ bacteria, culture indicated IV Zosyn and Vancomycin follow up on urine cx results monitor white count CAD h/o ME x 2 HTN HLD resume home dose of Diltiazem CD 240mg daily resume home dose of statin therapy monitor VS H/O CVA H/O brain aneurysm status post clipping Continue on home dose of primidone 50mg TID monitor for any seizure activity DM obtain HgbA1c level last A1c in the system 6.2 on 05/14/16 resume home dose of Metformin and Glipizide accuchek ISS diabetic diet COPD Ongoing tobaccoism Patient denies any recent illness or increased cough or sputum production smoking cessation/counseling Itzel monitor respiratory status Chronic RLE lymphedema Recent hospitalization for recurrent RLE cellulitis wound care consulted IV abx as stated above gracie wraps DVT prophylaxis patient is on Heparin drip Discussed with patient, nursing staff and Dr. Tarango The exam, history, and the medical decision-making described in the above note were completed with the assistance of the mid-level provider. I reviewed and agree with the findings presented. I attest that I had a [id number] encounter with the patient on the same day, and personally performed and documented my assessment and findings in the medical record. Code Status FULL CODE Discussed Condition With Case discussed with the patient, RN, ER physician, and PA Physician Certification 2 Midnight Certification Type: Admission for Inpatient Services Order for Inpatient Services The services are ordered in accordance with Medicare regulations or non- Medicare payer requirements, as applicable. In the case of services not specified as inpatient-only, they are appropriately provided as inpatient services in accordance with the 2-midnight benchmark. Estimated LOS (days): 5 5 days is the estimated time the patient will need to remain in the hospital, assuming treatment plan goals are met and no additional complications. Post-Hospital Plan: Not yet determined Problem Qualifiers (1) Altered mental status: Qualified Code: R41.0 - Disorientation (2) Congestive heart failure: Qualified Code: I50.9 - Congestive heart failure, unspecified congestive heart failure chronicity, unspecified congestive heart failure type Rachel Michaud Apr 29, 2017 12:06 Abdulkadir Tarango DO Apr 29, 2017 13:30 Rachel Michaud Apr 29, 2017 12:06 Abdulkadir Tarango DO Apr 29, 2017 13:30
[2017-04-29] MEDS: HEPARIN-D5W 25,000 U/250 ML 250 ML IV SCH (12:24)
[2017-04-29] MEDS: RESP: ALBUTEROL 2.5 MG/IPRATROPIUM 0.5 MG NEB (SCH) NEB (12:36)
[2017-04-29] MEDS: PREGABALIN 100 MG CAP PO SCH ×2 (13:12→21:38)
[2017-04-29] MEDS: GABAPENTIN 100 MG CAP PO SCH ×3 (13:12→23:55)
[2017-04-29] MEDS: PRIMIDONE 50 MG TAB PO SCH ×2 (13:12→18:00)
[2017-04-29] MEDS: DILTIAZEM-CD 240 MG CAP ER PO SCH (13:13)
[2017-04-29] MEDS: LACTOBACILLUS ACIDOPHILUS TAB PO SCH ×2 (13:13→17:17)
[2017-04-29] MEDS ORDERED: NS 1000P @30 MLS/HR (KVO) IV SCH (13:30)
[2017-04-29] MEDS ORDERED: VANCOMYCIN INJ 1,000 MG in SODIUM CHLOR 0.9% 250 ML INJ 250 ML IV SCH (13:45)
[2017-04-29] MEDS ORDERED: Vancomycin Consult Pharmacy 1 EA OTHER SCH (13:45)
[2017-04-29] MEDS: PIPERACIL-TAZO 4.5 GM PREMIX 100 ML IV SCH ×2 (13:57→21:39)
[2017-04-29] MEDS: VANCOMYCIN INJ 2,000 MG in SODIUM CHLORID 0.9% 500 ML INJ 500 ML IV SCH (14:44)
[2017-04-29] MEDS ORDERED: INSULIN ASPART SUPPLEMENTAL SCALE SQ SCH (16:00)
[2017-04-29] MEDS: INSULIN ASPART SUPPLEMENTAL SCALE SQ SCH ×2 (16:00→20:40)
[2017-04-29] MEDS ORDERED: HEPARIN SODIUM - IV 10,000 UNITS/10 ML VIAL IV PRN ×2 (16:30)
--- NOTE | 2017-04-29 16:45 | EKG ---
Date Performed: 04/29/2017 Time Performed: 07:26:45 PTAGE: 62 years EKG: SINUS TACHYCARDIA NONSPECIFIC T-WAVE ABNORMALITY ABNORMAL RHYTHM ECG PREVIOUS TRACING : 03/27/2017 00.38 Since previous tracing, no significant change noted DOCTOR: Jorge L Loera Interpretating Date/Time 04/29/2017 16:43:51
[2017-04-29] MEDS: WARFARIN SOD 10 MG TAB PO SCH (17:17)
[2017-04-29] MEDS: NYSTATIN 100,000 U/GM OINT 15 GM TUBE TOPICAL SCH (21:00)
[2017-04-29] MEDS: DOCUSATE SODIUM 50 MG/SENNA 8.6 MG TAB PO SCH (21:00)
[2017-04-29] MEDS: glipiZIDE 10 MG TAB PO SCH (21:37)
[2017-04-29] MEDS: SODIUM CHLORIDE 0.9% FLUSH 10 ML FLUSH IV FLUSH SCH (21:38)
[2017-04-29] MEDS: PRAVASTATIN SOD 20 MG TAB PO SCH (21:38)
[2017-04-29 22:51] LABS: APTT (PATIENT) 33.8 SEC (24.3-30.1)
[2017-04-30] VITALS (8 sets, daily range): BP systolic 112–139; BP diastolic 54–63; PULSE 87–102; RESP 18–20; TEMP 98–99.4; O2SAT 91–98
[2017-04-30] MEDS: VANCOMYCIN INJ 2,000 MG in SODIUM CHLORID 0.9% 500 ML INJ 500 ML IV SCH ×2 (03:00→15:00)
[2017-04-30 03:34] LABS: APTT (PATIENT) 61.9 SEC (24.3-30.1); INTERNATIONAL NORMALIZED RATIO 1.3 RATIO; PROTHROMBIN TIME - PATIENT 14.9 SEC (9.8-11.6)
[2017-04-30] MEDS: HEPARIN-D5W 25,000 U/250 ML 250 ML IV SCH ×2 (03:44→18:09)
[2017-04-30] MEDS: INSULIN ASPART SUPPLEMENTAL SCALE SQ SCH ×4 (06:06→21:00)
[2017-04-30] MEDS: PIPERACIL-TAZO 4.5 GM PREMIX 100 ML IV SCH ×3 (06:09→21:41)
[2017-04-30] MEDS: GABAPENTIN 100 MG CAP PO SCH ×3 (06:09→18:00)
[2017-04-30 07:52] LABS: AUTOMATED NEUTROPHIL # 9.5 TH/MM3 (1.8-7.7); BASOPHIL # 0.1 TH/MM3 (0-0.2); BASOPHIL % 0.9 % (0.0-2.0); EOSINOPHIL # 0.6 TH/MM3 (0-0.4); EOSINOPHIL % 4.6 % (0.0-4.0); HEMATOCRIT 28.6 % (39.0-51.0); HEMO FLAGS DIFF FINAL; LYMPH % 18.6 % (9.0-44.0); LYMPHOCYTE # 2.5 TH/MM3 (1.0-4.8); MEAN CELL VOLUME 79.6 FL (80.0-100.0); MEAN CORPUSCULAR HEMOGLOBIN 24.3 PG (27.0-34.0); MEAN CORPUSCULAR HGB CONC 30.5 % (32.0-36.0); MONO % 5.4 % (0.0-8.0); NEUT % 70.5 % (16.0-70.0); PLATELET COUNT 322 TH/MM3 (150-450); RED BLOOD COUNT 3.59 MIL/MM3 (4.50-5.90); RED CELL DISTRIBUTION WIDTH 19.1 % (11.6-17.2); WHITE BLOOD COUNT 13.5 TH/MM3 (4.0-11.0)
[2017-04-30] MEDS: LACTOBACILLUS ACIDOPHILUS TAB PO SCH ×3 (08:00→17:00)
[2017-04-30] MEDS: RESP: ALBUTEROL 2.5 MG/IPRATROPIUM 0.5 MG NEB (SCH) NEB ×3 (08:04→19:54)
[2017-04-30 08:08] LABS: ANION GAP 5 MEQ/L (5-15); AST (GOT) 9 U/L (15-37); BICARBONATE 32.3 MEQ/L (21.0-32.0); BLOOD UREA NITROGEN 10 MG/DL (7-18); CHLORIDE 102 MEQ/L (98-107); GLOMERULAR FILTRATION RATE 115 ML/MIN (>89); POTASSIUM 3.4 MEQ/L (3.5-5.1); SODIUM (NA) 139 MEQ/L (136-145)
[2017-04-30 08:14] LABS: ALKALINE PHOSPHATASE 43 U/L (45-117); ALT (GPT) 7 U/L (12-78); FREE T4 0.99 NG/DL (0.76-1.46); TOTAL BILIRUBIN ADULT 0.3 MG/DL (0.2-1.0)
[2017-04-30] MEDS: PREGABALIN 100 MG CAP PO SCH ×3 (08:44→18:00)
[2017-04-30] MEDS: DOCUSATE SODIUM 50 MG/SENNA 8.6 MG TAB PO SCH ×2 (08:44→21:39)
[2017-04-30] MEDS: glipiZIDE 10 MG TAB PO SCH ×2 (08:44→21:39)
[2017-04-30] MEDS: PRIMIDONE 50 MG TAB PO SCH ×3 (08:45→18:00)
[2017-04-30] MEDS: DILTIAZEM-CD 240 MG CAP ER PO SCH (08:45)
[2017-04-30] MEDS: VENLAFAXINE HCL XR 75 MG CAP PO SCH (08:45)
[2017-04-30] MEDS: SPIRONOLACTONE 25 MG TAB PO SCH (08:45)
[2017-04-30] MEDS: SODIUM CHLORIDE 0.9% FLUSH 10 ML FLUSH IV FLUSH SCH ×2 (08:53→21:47)
[2017-04-30] MEDS: NYSTATIN 100,000 U/GM OINT 15 GM TUBE TOPICAL SCH ×2 (09:00→21:00)
[2017-04-30 10:09] LABS: APTT (PATIENT) 80.2 SEC (24.3-30.1)
--- NOTE | 2017-04-30 10:57 | HHI.PR ---
Subjective Remarks Follow up respiratory failure, COPD. the patient reports significant pain in his right leg. Feels that his breathing is a little better than yesterday. Still with shortness of breath and cough. Objective Vitals Vital Signs Date Time Temp Pulse Resp B/P Pulse Ox O2 Delivery O2 Flow Rate FiO2 04/30/17 08:09 95 Nasal Cannula 4.00 04/30/17 08:00 99.4 94 18 114/58 95 04/30/17 04:00 Venturi Mask 6.00 04/30/17 04:00 98.7 101 20 136/63 95 04/30/17 00:00 Venturi Mask 6.00 04/30/17 00:00 98.0 95 18 139/60 92 04/29/17 20:00 Venturi Mask 6.00 04/29/17 20:00 80 04/29/17 20:00 97.8 83 20 131/59 100 04/29/17 16:00 97.4 100 22 156/80 100 04/29/17 14:21 92 16 134/64 99 Venturi Mask 04/29/17 12:10 97 16 174/83 100 Venturi Mask 6 04/29/17 11:36 86 16 141/63 100 Venturi Mask I/O 04/29/17 04/29/17 04/29/17 04/30/17 04/30/17 04/30/17 07:00 15:00 23:00 07:00 15:00 23:00 Intake Total 975 ml 513 ml Output Total 2750 ml 450 ml Balance -1775 ml 63 ml Intake Oral 240 ml 240 ml IV Total 735 ml 273 ml Output Urine Total 2750 ml 450 ml # Bowel Movements 0 0 Result Diagram: 04/30/1771604/30/17716 Imaging Last Impressions Head CT 04/29/17720 Signed Impressions: Service Date/Time: Saturday, April 29, 2017 07:55 - CONCLUSION: Negative for an acute process. Abdulkadir Whitaker MD FACR Chest X-Ray 04/29/17720 Signed Impressions: Service Date/Time: Saturday, April 29, 2017 08:07 - CONCLUSION: Mild interstitial edema. Abdulkadir Whitaker MD FACR Objective Remarks General: Morbidly obese male in no acute distress. Heart: Regular rate and rhythm. No murmur. Lungs: Mild scattered wheeze. Breathing is nonlabored. Abdomen: Soft, nontender, nondistended. Extremities: Status post left AKA. Right lower extremity with lymphedema, bandaged. Psych: Alert and oriented. Procedures None Urinary Catheter: Yes Assessment to: Remove Vascular Central Line Catheter: No A/P Problem List: (1) Noncompliance ICD Code: Z91.19 Status: Acute (2) Altered mental status ICD Code: R41.82 Status: Acute (3) Hypoxia ICD Code: R09.02 Status: Acute (4) Congestive heart failure ICD Code: I50.9 Status: Acute (5) Infection associated with lymphedema ICD Code: B99.9 Status: Acute (6) Obesity (BMI 30-39.9) ICD Code: E66.9 Status: Chronic (7) Venous stasis dermatitis of right lower extremity ICD Code: I87.2 Status: Acute (8) Diabetes mellitus type 2, uncontrolled ICD Code: E11.9 Status: Chronic (9) Wound infection ICD Code: T14.8 Status: Acute (10) Tobacco abuse ICD Code: Z72.0 Status: Chronic (11) Cellulitis ICD Code: L03.90 Status: Acute (12) Cellulitis of right leg ICD Code: L03.115 Status: Acute (13) COPD (chronic obstructive pulmonary disease) ICD Code: J44.9 Status: Chronic (14) History of MRSA infection ICD Code: Z86.14 Assessment and Plan 1. Acute hypoxic respiratory failure: Continue supplemental oxygen, bronchodilators. Weaned off mask to nasal cannula. 2. Hypoxic encephalopathy: Secondary to above. 3. Possible CHF: Echocardiogram pending. Monitor strict intake/output. CXR shows mild interstitial edema. Patient received Lasix in the ER. 4. DVT on chronic anticoagulation: INR subtherapeutic, likely secondary to medication noncompliance. Continue heparin drip. Continue Coumadin. 5. UTI: Continue antibiotics. Follow urine culture. 6. Coronary artery disease, hypertension, hyperlipidemia: Continue diltiazem, statin. 7. Diabetes mellitus: Hemoglobin A1c pending. Continue metformin, glipizide. Monitor Accu-Cheks and cover with sliding scale insulin. Diabetic diet. 8. COPD: Continue bronchodilators, supplemental oxygen. Add prednisone. 9. Chronic right lower extremity lymphedema: Wound care consult. 10. Recurrent right lower extremity cellulitis: Continue antibiotics (vancomycin , Zosyn). 11. Tobacco abuse: Patient has been counseled to quit smoking. Problem Qualifiers (1) Altered mental status: Qualified Code: R41.0 - Disorientation (2) Congestive heart failure: Qualified Code: I50.9 - Congestive heart failure, unspecified congestive heart failure chronicity, unspecified congestive heart failure type Brandon Sheth MD Apr 30, 2017 10:57
[2017-04-30 11:24] LABS: HEMOGLOBIN A1a 1.2 %; HEMOGLOBIN Ao 84.1 %; HEMOGLOBIN LA1C 1.8 %; HEMOGLOBIN P3 3.9 %
--- NOTE | 2017-04-30 11:43 | PD.WCN.NOT ---
Wound Consult Description: R lower leg and R dorsal foot wound Communicated with: RN Nelly [address] [place] [address] and Doctor Domenic Recommendation: Please cleanse RLE with normal saline and gauze pads and gently pat dry. Leave leg open to air and apply ultrasorb pad under RLE to absorb drainage and change as needed. Please elevate RLE with pillow to reduce edema Additional Information: Patient seen on for evaluation of RLE wound management. Removed Coban wrap, rolled gauze, ABD pads and mccarty gentle adhesive foam dressing in place to reveal Large partial thickness wound to R lower leg that measures ~20 cm x ~20 cm x ~<0.1cm. Wound bed is moist with areas of weeping macerated skin noted to periwound.Wound margins are poorly defined and jagged.Dorsal foot wound appears with macerated, peeling periwound skin and and small partial thickness skin loss in center Area measures ~5cm x ~5cm x<~0.1. Wound drainage is thin yellow and serous with mild odor. Entire RLE presents with hard non pitting edema and with dry scaly erythematous skin. Cleansed entire leg with normal saline and attemped to apply oil emulsion gauze, maxorb extra AG, and ABD pads in place. Patient complained of discomfort and burning with dressings application. Patient states, "It felt better just leaving it open to air." Left RLE open to air elevated on pillows and applied new ultrasorb pad under RLE for drainage. [facility] and weeping. L[facility] Burrell [facility] Apr 30, 2017 11:43
[2017-04-30] MEDS: oxyCODONE/ACETAMINOPHEN 5 MG/325 MG TAB PO PRN ×2 (12:48→19:13)
[2017-04-30] MEDS: predniSONE 10 MG TAB PO SCH ×2 (14:11→21:39)
[2017-04-30] MEDS: WARFARIN SOD 10 MG TAB PO SCH (17:08)
[2017-04-30] MEDS ORDERED: MORPHINE SULFATE 4 MG/ML INJ IV ONE (18:00)
[2017-04-30] MEDS: ONDANSETRON HCL 4 MG/2 ML VIAL IVP PRN (18:02)
--- NOTE | 2017-04-30 18:03 | ECHRPT ---
Indication: SHORTNESS OF BREATH CONCLUSIONS Very technically difficult study In limited views, ejection fraction appears relatively normal, appears to be around 55-60%. Doppler parameters are consistent with impaired left ventricular relaxtion (grade 1 diastolic dysfun ction). Trace mitral valve regurgitation. There is trace tricuspid valve regurgitation. BP: 141 / 63 HR: 86 Rhythm: Sinus MEASUREMENTS (Male / Female) Normal Values Technical Quality:Very technically difficult study 2D ECHO LV Diastolic Diameter PLAX 4.5 cm 4.2 - 5.9 / 3.9 - 5.3 cm LV Systolic Diameter PLAX 3.0 cm IVS Diastolic Thickness 1.0 cm 0.6 - 1.0 / 0.6 - 0.9 cm LVPW Diastolic Thickness 1.0 cm 0.6 - 1.0 / 0.6 - 0.9 cm LV Relative Wall Thickness 0.4 LVOT Diameter 2.0 cm Aortic Root Diameter 2.5 cm LA Systolic Diameter LX 2.9 cm 3.0 - 4.0 / 2.7 - 3.8 cm DOPPLER AV Peak Velocity 152.0 cm/s AV Peak Gradient 9.2 mmHg AV Mean Gradient 4.0 mmHg AV Velocity Time Integral 21.4 cm LVOT Peak Velocity 80.5 cm/s LVOT Peak Gradient 2.6 mmHg LVOT Velocity Time Integral 10.5 cm LVOT Cardiac Index 978.0 cm/minm AV Area Cont Eq vti 1.5 cm AV Area Cont Eq pk 1.7 cm Mitral E Point Velocity 80.5 cm/s Mitral A Point Velocity 103.0 cm/s Mitral E to A Ratio 0.8 LV E' Lateral Velocity 16.8 cm/s Mitral E to LV E' Lateral Ratio 4.8 LV E' Septal Velocity 11.3 cm/s Mitral E to LV E' Septal Ratio 7.1 PV Peak Velocity 58.7 cm/s PV Peak Gradient 1.4 mmHg FINDINGS LEFT VENTRICLE Normal left ventricular size. Wall thickness is normal. In limited views, ejection fraction appears relatively normal, appears to be around 55-60% No regional wall motion abnormalities are present. Doppler parameters are consistent with impaired left ventricular relaxtion (grade 1 diastolic dysfun ction). RIGHT VENTRICLE The right ventricular size is normal. LEFT ATRIUM The left atrial size is mildly dilated. RIGHT ATRIUM The right atrial size is mildly dilated. ATRIAL SEPTUM The interatrial septum not well visualized. AORTA The aortic root and proximal ascending aorta are normal in size on limited imaging. MITRAL VALVE Structurally normal mitral valve. Trace mitral valve regurgitation. No mitral valve stenosis. AORTIC VALVE The aortic valve is not well visualized, however, there is good movement seen from the valve. No aortic valve regurgitation. No aortic valve stenosis. TRICUSPID VALVE Structurally normal tricuspid valve. There is trace tricuspid valve regurgitation. Normal estimated pulmonary pressures. PULMONARY VALVE The pulmonary valve is not well visualized. VESSELS There is less than 50% respiratory change in dimension of the inferior vena cava (abnormal). The inferior vena cava (IVC) is normal in size. PERICARDIUM No pericardial effusion. Jairo Vargas DO (Electronically Signed) Final Date:30 April 2017 18:01
[2017-04-30 18:11] LABS: APTT (PATIENT) 86.5 SEC (24.3-30.1)
[2017-04-30] MEDS: PRAVASTATIN SOD 20 MG TAB PO SCH (21:39)
[2017-05-01] VITALS (10 sets, daily range): BP systolic 106–121; BP diastolic 54–65; PULSE 75–94; RESP 20; TEMP 97.5–97.7; O2SAT 93–97
[2017-05-01] MEDS: GABAPENTIN 100 MG CAP PO SCH ×4 (01:13→17:47)
[2017-05-01] MEDS: oxyCODONE/ACETAMINOPHEN 5 MG/325 MG TAB PO PRN ×2 (01:13→08:52)
[2017-05-01] MEDS ORDERED: PHARMACY ORDERED LAB ONE (02:45)
[2017-05-01] MEDS: VANCOMYCIN INJ 2,000 MG in SODIUM CHLORID 0.9% 500 ML INJ 500 ML IV SCH ×2 (03:00→15:00)
[2017-05-01] MEDS: PIPERACIL-TAZO 4.5 GM PREMIX 100 ML IV SCH ×3 (05:43→22:19)
[2017-05-01 06:15] LABS: BASOPHIL # 0.1 TH/MM3 (0-0.2); BASOPHIL % 0.7 % (0.0-2.0); EOSINOPHIL % 0.2 % (0.0-4.0); HEMATOCRIT 27.8 % (39.0-51.0); HEMO FLAGS DIFF FINAL; LYMPH % 12.2 % (9.0-44.0); LYMPHOCYTE # 1.5 TH/MM3 (1.0-4.8); MEAN CELL VOLUME 80.2 FL (80.0-100.0); MEAN CORPUSCULAR HEMOGLOBIN 24.1 PG (27.0-34.0); MEAN CORPUSCULAR HGB CONC 30.1 % (32.0-36.0); MONO % 5.1 % (0.0-8.0); NEUT % 81.8 % (16.0-70.0); PLATELET COUNT 319 TH/MM3 (150-450); RED BLOOD COUNT 3.46 MIL/MM3 (4.50-5.90); RED CELL DISTRIBUTION WIDTH 18.8 % (11.6-17.2); WHITE BLOOD COUNT 12.3 TH/MM3 (4.0-11.0)
[2017-05-01 06:24] LABS: PROTHROMBIN TIME - PATIENT 22.2 SEC (9.8-11.6)
[2017-05-01 06:30] LABS: BICARBONATE 33.3 MEQ/L (21.0-32.0)
[2017-05-01] MEDS: INSULIN ASPART SUPPLEMENTAL SCALE SQ SCH ×4 (07:00→21:00)
[2017-05-01] MEDS: RESP: ALBUTEROL 2.5 MG/IPRATROPIUM 0.5 MG NEB (SCH) NEB ×3 (08:44→19:22)
[2017-05-01] MEDS: VENLAFAXINE HCL XR 75 MG CAP PO SCH (08:52)
[2017-05-01] MEDS: glipiZIDE 10 MG TAB PO SCH ×2 (08:52→22:19)
[2017-05-01] MEDS: predniSONE 10 MG TAB PO SCH ×2 (08:52→22:19)
[2017-05-01] MEDS: LACTOBACILLUS ACIDOPHILUS TAB PO SCH ×3 (08:52→17:47)
[2017-05-01] MEDS: SPIRONOLACTONE 25 MG TAB PO SCH (08:52)
[2017-05-01] MEDS: PREGABALIN 100 MG CAP PO SCH ×3 (08:53→17:47)
[2017-05-01] MEDS: DILTIAZEM-CD 240 MG CAP ER PO SCH (08:53)
[2017-05-01] MEDS: PRIMIDONE 50 MG TAB PO SCH ×3 (08:53→17:47)
[2017-05-01] MEDS: SODIUM CHLORIDE 0.9% FLUSH 10 ML FLUSH IV FLUSH SCH ×2 (09:00→21:00)
[2017-05-01] MEDS: DOCUSATE SODIUM 50 MG/SENNA 8.6 MG TAB PO SCH ×2 (09:00→21:00)
[2017-05-01] MEDS: NYSTATIN 100,000 U/GM OINT 15 GM TUBE TOPICAL SCH ×2 (09:00→21:00)
[2017-05-01 10:11] LABS: APTT (PATIENT) 87.5 SEC (24.3-30.1)
[2017-05-01] MEDS: HEPARIN-D5W 25,000 U/250 ML 250 ML IV SCH (11:13)
--- NOTE | 2017-05-01 12:42 | PD.POD.CON ---
Patient Intake Chief Complaint Venous stasis ulceration right leg Consult Requested by Dr. Sheth. Reason for Consult Evaluation and treatment of venous stasis ulceration right leg Primary Care Physician [facility] History of Present Illness Patient is a 62-year-old morbidly obese diabetic male who has previously had a left above-knee amputation presented with shortness of breath and hypoxia secondary to CHF. Patient has an ulceration of the right lateral leg due to severe lymphedema. Patient is on a diuretic but drinks large amounts of fluid per day. Coded Allergies: MRI PRECAUTION (Verified Allergy, Severe, ANEURSYM CLIPPING, 03/26/17) diatrizoate meglumine (Unverified Allergy, Severe, SHOCK, 04/30/17) gadobenic acid (Unverified Allergy, Severe, SHOCK, 04/30/17) gadodiamide (Unverified Allergy, Severe, SHOCK, 04/30/17) gadoteridol (Unverified Allergy, Severe, SHOCK, 04/30/17) iodine (Unverified Allergy, Severe, 04/30/17) iodixanol (Unverified Allergy, Severe, SHOCK, 04/30/17) iohexol (Unverified Allergy, Severe, SHOCK, 04/30/17) potassium iodide (Unverified Allergy, Severe, 04/30/17) povidone-iodine (Unverified Allergy, Severe, 04/30/17) sodium iodide (Unverified Allergy, Severe, 04/30/17) sodium iodide (Unverified Allergy, Severe, 04/30/17) Preferred Language to Discuss: Macedonian Barriers to Learning: None Teaching Method: Discussion Vital Signs Date Time Temp Pulse Resp B/P Pulse Ox O2 Delivery O2 Flow Rate FiO2 05/01/17 08:48 94 Nasal Cannula 4.00 05/01/17 08:30 Nasal Cannula 4.00 Humidified 05/01/17 08:30 80 05/01/17 08:00 97.7 75 20 116/65 95 05/01/17 04:00 97.5 94 20 111/57 94 05/01/17 04:00 Nasal Cannula 4.00 05/01/17 00:00 97.7 80 20 121/60 93 05/01/17 00:00 Nasal Cannula 4.00 04/30/17 20:00 98.4 96 20 112/54 92 04/30/17 20:00 Nasal Cannula 4.00 04/30/17 19:54 97 Nasal Cannula 4.00 04/30/17 16:00 98.2 87 18 112/55 98 Pain scale used: 0-10 numeric scale Pain score: 8 Past, Family & Social History Past Medical History Endocrine: REPORTS HX OF: Diabetes mellitus Respiratory: REPORTS HX OF: COPD Cardiovascular: REPORTS HX OF: Coronary artery disease, Deep venous thrombosis , Heart failure, Hypertension, Myocardial infarction, Peripheral vascular dz Neurologic: REPORTS HX OF: Seizures, Stroke, Other neurologic history Past Surgical History Musculoskeletal: REPORTS HX OF: Other musculoskeletal srg (above-knee amputation left lower extremity) Review of Systems Cardiovascular: COMPLAINS OF: Hx CHF / chest pain, Uses O2 use at home, Swelling legs / ankles Respiratory: COMPLAINS OF: Difficulty breathing Integumentary: COMPLAINS OF: Rash Neurological: COMPLAINS OF: Numbness/tingling, Changes in sensation Psychiatric: COMPLAINS OF: Change in memory Exam-Podiatry Constitutional General appearance: comfortable Nutritional status: overweight (morbidly obese) Orientation: alert and oriented x3 Dermatological Exam Skin Temp - Right: Hot Skin Texture - Right: Thin, Shiny Skin Elasticity - Right: Abnormal Skin Tugor - Right: Abnormal Hair Growth - Right: Absent Pigmentation - Right: Within Normal Limits Present on right: Stasis Pigmentation Ulcers: Location/Measurements Serous draining ulceration right lateral leg Vascular/Lymphatic Exam R Dorsails Pedis: Doppler R Posterior Tibial: Doppler Present on right: Edema Neurologic Exam Details Deferred exam Muscle Strength Dorsiflexion (Right): Normal Plantarflexion (Right): Normal Inversion (Right): Normal Eversion (Right): Normal Digital (Right): Normal Foot Range of Motion Dorsiflexion (Right): Pain Plantarflexion (Right): Pain Inversion (Right): Pain Eversion (Right): Pain Digital (Right): Pain Wound Assessment Wound Information - Wound One Wound Location: multiple open areas of the right lower extremity Lab and Radiology Results Laboratory Laboratory Tests Test 04/30/17 05/01/17 07:17 05:50 White Blood Count 13.5 TH/MM3 12.3 TH/MM3 Red Blood Count 3.59 MIL/MM3 3.46 MIL/MM3 Hemoglobin 8.7 GM/DL 8.3 GM/DL Hematocrit 28.6 % 27.8 % Mean Corpuscular Volume 79.6 FL 80.2 FL Mean Corpuscular Hemoglobin 24.3 PG 24.1 PG Mean Corpuscular Hemoglobin 30.5 % 30.1 % Concent Red Cell Distribution Width 19.1 % 18.8 % Platelet Count 322 TH/MM3 319 TH/MM3 Mean Platelet Volume 7.7 FL 8.0 FL Neutrophils (%) (Auto) 70.5 % 81.8 % Lymphocytes (%) (Auto) 18.6 % 12.2 % Monocytes (%) (Auto) 5.4 % 5.1 % Eosinophils (%) (Auto) 4.6 % 0.2 % Basophils (%) (Auto) 0.9 % 0.7 % Neutrophils # (Auto) 9.5 TH/MM3 10.0 TH/MM3 Lymphocytes # (Auto) 2.5 TH/MM3 1.5 TH/MM3 Monocytes # (Auto) 0.7 TH/MM3 0.6 TH/MM3 Eosinophils # (Auto) 0.6 TH/MM3 0.0 TH/MM3 Basophils # (Auto) 0.1 TH/MM3 0.1 TH/MM3 CBC Comment DIFF FINAL DIFF FINAL Differential Comment Laboratory Tests Test 04/29/17 04/30/17 05/01/17 17:26 07:17 05:50 B-Type Natriuretic Peptide 62 PG/ML Sodium Level 139 MEQ/L 136 MEQ/L Potassium Level 3.4 MEQ/L 4.0 MEQ/L Chloride Level 102 MEQ/L 99 MEQ/L Carbon Dioxide Level 32.3 MEQ/L 33.3 MEQ/L Anion Gap 5 MEQ/L 4 MEQ/L Blood Urea Nitrogen 10 MG/DL 11 MG/DL Creatinine 0.69 MG/DL 0.74 MG/DL Estimat Glomerular Filtration 115 ML/MIN 106 ML/MIN Rate Random Glucose 93 MG/DL 135 MG/DL Hemoglobin A1c 6.4 % Calcium Level 7.7 MG/DL 8.0 MG/DL Phosphorus Level 2.8 MG/DL Magnesium Level 2.0 MG/DL Total Bilirubin 0.3 MG/DL Aspartate Amino Transf 9 U/L (AST/SGOT) Alanine Aminotransferase 7 U/L (ALT/SGPT) Alkaline Phosphatase 43 U/L Total Protein 6.9 GM/DL Albumin 1.9 GM/DL Free Thyroxine 0.99 NG/DL Thyroid Stimulating Hormone 0.437 uIU/ML 3rd Gen Microbiology Date/Time Procedure Status Source Growth 04/29/17 09:10 Aerobic Blood Culture - Preliminary Resulted Blood Peripheral NO GROWTH IN 2 DAYS 04/29/17 09:10 Anaerobic Blood Culture - Preliminary Resulted Blood Peripheral NO GROWTH IN 2 DAYS 04/29/17 09:20 Aerobic Blood Culture - Preliminary Resulted Blood Peripheral NO GROWTH IN 2 DAYS 04/29/17 09:20 Anaerobic Blood Culture - Preliminary Resulted Blood Peripheral NO GROWTH IN 2 DAYS 04/29/17 09:45 Urine Culture - Preliminary Resulted Urine Catheterized Urine Radiology Last Impressions Head CT 04/29/17720 Signed Impressions: Service Date/Time: Saturday, April 29, 2017 07:55 - CONCLUSION: Negative for an acute process. Abdulkadir Whitaker MD FACR Chest X-Ray 04/29/17720 Signed Impressions: Service Date/Time: Saturday, April 29, 2017 08:07 - CONCLUSION: Mild interstitial edema. Abdulkadir Whitaker MD FACR Assessment/Plan Problem List: (1) Mood disorder Status: Chronic (2) History of TIA (transient ischemic attack) Status: Chronic (3) Coronary artery disease Status: Chronic (4) Acquired lymphedema Status: Chronic (5) Morbidly obese Status: Chronic (6) Congestive heart failure Status: Acute (7) Wound infection Status: Acute (8) Diabetes mellitus type 2, uncontrolled Status: Chronic (9) Cellulitis of right leg Status: Acute (10) Obesity (BMI 30-39.9) Status: Chronic (11) Venous stasis dermatitis of right lower extremity Status: Acute (12) Infection associated with lymphedema Status: Acute Additional Plans & Procedures PLAN: Ordered Optiva gentle AG and light compression to the right lower extremity. Suggest limiting his fluid intake because of his lymphedema. Patient can follow -up at the [place] upon discharge. Problem Qualifiers (1) Coronary artery disease: Qualified Code: I25.119 - Coronary artery disease involving [place] heart with angina pectoris, unspecified vessel or lesion type (2) Congestive heart failure: Qualified Code: I50.9 - Congestive heart failure, unspecified congestive heart failure chronicity, unspecified congestive heart failure type (3) Diabetes mellitus type 2, uncontrolled: Qualified Code: E11.51 - Uncontrolled type 2 diabetes mellitus with diabetic peripheral angiopathy without gangrene, with long-term current use of insulin Florin Zheng DPM May 01, 2017 12:41
[2017-05-01] MEDS ORDERED: oxyCODONE/ACETAMINOPHEN 5 MG/325 MG TAB PO PRN (13:43)
--- NOTE | 2017-05-01 13:54 | HHI.PR ---
Subjective Remarks Follow up leg wound, dyspnea. Patient still with pain in the right lower leg. Was evaluated by podiatry. Pain medication not helping. Denies chest pain, dyspnea. Objective Vitals Vital Signs Date Time Temp Pulse Resp B/P Pulse Ox O2 Delivery O2 Flow Rate FiO2 05/01/17 08:48 94 Nasal Cannula 4.00 05/01/17 08:30 Nasal Cannula 4.00 Humidified 05/01/17 08:30 80 05/01/17 08:00 97.7 75 20 116/65 95 05/01/17 04:00 97.5 94 20 111/57 94 05/01/17 04:00 Nasal Cannula 4.00 05/01/17 00:00 97.7 80 20 121/60 93 05/01/17 00:00 Nasal Cannula 4.00 04/30/17 20:00 98.4 96 20 112/54 92 04/30/17 20:00 Nasal Cannula 4.00 04/30/17 19:54 97 Nasal Cannula 4.00 04/30/17 16:00 98.2 87 18 112/55 98 I/O 04/30/17 04/30/17 04/30/17 05/01/17 05/01/17 05/01/17 07:00 15:00 23:00 07:00 15:00 23:00 Intake Total 513 ml 960 ml 3463 ml 240 ml Output Total 450 ml 650 ml 300 ml 0 ml Balance 63 ml 310 ml 3163 ml 240 ml Intake Oral 240 ml 960 ml 360 ml 240 ml IV Total 273 ml 3103 ml Output Urine Total 450 ml 650 ml 300 ml 0 ml # Bowel Movements 0 0 0 0 Result Diagram: 05/01/17 0550 05/01/17 0550 Imaging Last Impressions Head CT 04/29/17720 Signed Impressions: Service Date/Time: Saturday, April 29, 2017 07:55 - CONCLUSION: Negative for an acute process. Abdulkadir Whitaker MD FACR Chest X-Ray 04/29/17720 Signed Impressions: Service Date/Time: Saturday, April 29, 2017 08:07 - CONCLUSION: Mild interstitial edema. Abdulkadir Whitaker MD FACR Objective Remarks General: Morbidly obese male in no acute distress. Heart: Regular rate and rhythm. No murmur. Lungs: Mild scattered wheeze. Breathing is nonlabored. Abdomen: Soft, nontender, nondistended. Extremities: Status post left AKA. Right lower extremity with lymphedema. Large ulcerated wound on right lower leg with serous drainage. Psych: Alert and oriented. Procedures None Urinary Catheter: No Vascular Central Line Catheter: No A/P Problem List: (1) Noncompliance ICD Code: Z91.19 Status: Acute (2) Altered mental status ICD Code: R41.82 Status: Acute (3) Hypoxia ICD Code: R09.02 Status: Acute (4) Congestive heart failure ICD Code: I50.9 Status: Acute (5) Infection associated with lymphedema ICD Code: B99.9 Status: Acute (6) Obesity (BMI 30-39.9) ICD Code: E66.9 Status: Chronic (7) Venous stasis dermatitis of right lower extremity ICD Code: I87.2 Status: Acute (8) Diabetes mellitus type 2, uncontrolled ICD Code: E11.9 Status: Chronic (9) Wound infection ICD Code: T14.8 Status: Acute (10) Tobacco abuse ICD Code: Z72.0 Status: Chronic (11) Cellulitis ICD Code: L03.90 Status: Acute (12) Cellulitis of right leg ICD Code: L03.115 Status: Acute (13) COPD (chronic obstructive pulmonary disease) ICD Code: J44.9 Status: Chronic (14) History of MRSA infection ICD Code: Z86.14 Assessment and Plan 1. Acute hypoxic respiratory failure: Continue supplemental oxygen, bronchodilators. Continue oxygen per nasal cannula. 2. Hypoxic encephalopathy: Secondary to above. Improved. 3. Possible CHF: Echocardiogram shows grade 1 diastolic dysfunction. Monitor strict intake/output. CXR shows mild interstitial edema. Continue lasix. 4. DVT on chronic anticoagulation: INR subtherapeutic, likely secondary to medication noncompliance. Continue heparin drip. Continue Coumadin. 5. UTI: Continue antibiotics. Follow urine culture. 6. Coronary artery disease, hypertension, hyperlipidemia: Continue diltiazem, statin. 7. Diabetes mellitus: Hemoglobin A1c pending. Continue metformin, glipizide. Monitor Accu-Cheks and cover with sliding scale insulin. Diabetic diet. 8. COPD: Continue bronchodilators, supplemental oxygen, prednisone. 9. Chronic right lower extremity lymphedema: Wound care consult. 10. Recurrent right lower extremity cellulitis: Continue antibiotics (vancomycin , Zosyn). 11. Tobacco abuse: Patient has been counseled to quit smoking. Problem Qualifiers (1) Altered mental status: Qualified Code: R41.0 - Disorientation (2) Congestive heart failure: Qualified Code: I50.9 - Congestive heart failure, unspecified congestive heart failure chronicity, unspecified congestive heart failure type (3) Diabetes mellitus type 2, uncontrolled: Qualified Code: E11.51 - Uncontrolled type 2 diabetes mellitus with diabetic peripheral angiopathy without gangrene, with long-term current use of insulin Brandon Sheth MD May 01, 2017 13:54
[2017-05-01] MEDS: oxyCODONE/ACETAMINOPHEN 10 MG/325 MG TAB PO PRN ×2 (14:59→18:59)
[2017-05-01] MEDS: FUROSEMIDE 20 MG/2 ML VIAL IV PUSH SCH (15:27)
[2017-05-01 16:40] LABS: APTT (PATIENT) 50.5 SEC (24.3-30.1)
[2017-05-01] MEDS: PRAVASTATIN SOD 20 MG TAB PO SCH (22:19)
[2017-05-01] MEDS: HYDROmorphone HCL PF 1 MG/ML VIAL IV PUSH PRN (23:31)
[2017-05-02] VITALS (9 sets, daily range): BP systolic 107–139; BP diastolic 55–65; PULSE 73–95; RESP 20–22; TEMP 97.4–97.8; O2SAT 93–96
[2017-05-02] MEDS: oxyCODONE/ACETAMINOPHEN 10 MG/325 MG TAB PO PRN ×6 (00:10→22:22)
[2017-05-02] MEDS: GABAPENTIN 100 MG CAP PO SCH ×5 (00:10→23:33)
[2017-05-02] MEDS: VANCOMYCIN INJ 2,000 MG in SODIUM CHLORID 0.9% 500 ML INJ 500 ML IV SCH ×2 (03:00→14:54)
[2017-05-02] MEDS: PIPERACIL-TAZO 4.5 GM PREMIX 100 ML IV SCH ×3 (06:00→22:21)
[2017-05-02 06:35] LABS: AUTOMATED NEUTROPHIL # 10.4 TH/MM3 (1.8-7.7); BASOPHIL # 0.2 TH/MM3 (0-0.2); BASOPHIL % 1.2 % (0.0-2.0); EOSINOPHIL # 0.3 TH/MM3 (0-0.4); HEMATOCRIT 28.7 % (39.0-51.0); HEMO FLAGS DIFF FINAL; LYMPH % 11.1 % (9.0-44.0); LYMPHOCYTE # 1.5 TH/MM3 (1.0-4.8); MEAN CELL VOLUME 81.4 FL (80.0-100.0); MEAN CORPUSCULAR HEMOGLOBIN 24.6 PG (27.0-34.0); MEAN CORPUSCULAR HGB CONC 30.2 % (32.0-36.0); MONO % 5.9 % (0.0-8.0); NEUT % 79.8 % (16.0-70.0); PLATELET COUNT 328 TH/MM3 (150-450); RED BLOOD COUNT 3.53 MIL/MM3 (4.50-5.90); RED CELL DISTRIBUTION WIDTH 18.9 % (11.6-17.2); WHITE BLOOD COUNT 13.1 TH/MM3 (4.0-11.0)
[2017-05-02 06:37] LABS: INTERNATIONAL NORMALIZED RATIO 2.2 RATIO; PROTHROMBIN TIME - PATIENT 25.6 SEC (9.8-11.6)
[2017-05-02 06:52] LABS: BICARBONATE 34.7 MEQ/L (21.0-32.0); POTASSIUM 4.3 MEQ/L (3.5-5.1)
[2017-05-02] MEDS: INSULIN ASPART SUPPLEMENTAL SCALE SQ SCH ×4 (07:00→21:00)
[2017-05-02] MEDS: RESP: ALBUTEROL 2.5 MG/IPRATROPIUM 0.5 MG NEB (SCH) NEB ×3 (08:57→20:27)
[2017-05-02] MEDS: DOCUSATE SODIUM 50 MG/SENNA 8.6 MG TAB PO SCH ×2 (09:00→20:25)
[2017-05-02] MEDS: NYSTATIN 100,000 U/GM OINT 15 GM TUBE TOPICAL SCH ×2 (09:00→21:00)
[2017-05-02] MEDS: FUROSEMIDE 20 MG/2 ML VIAL IV PUSH SCH (09:00)
[2017-05-02] MEDS: PREGABALIN 100 MG CAP PO SCH ×3 (09:32→17:00)
[2017-05-02] MEDS: SPIRONOLACTONE 25 MG TAB PO SCH (09:32)
[2017-05-02] MEDS: POTASSIUM CHLORIDE 10 MEQ CONTROLLED RELEASE TAB PO SCH (09:32)
[2017-05-02] MEDS: DILTIAZEM-CD 240 MG CAP ER PO SCH (09:32)
[2017-05-02] MEDS: LACTOBACILLUS ACIDOPHILUS TAB PO SCH ×3 (09:33→16:33)
[2017-05-02] MEDS: SODIUM CHLORIDE 0.9% FLUSH 10 ML FLUSH IV FLUSH SCH ×2 (09:33→21:00)
[2017-05-02] MEDS: VENLAFAXINE HCL XR 75 MG CAP PO SCH (09:34)
[2017-05-02] MEDS: predniSONE 10 MG TAB PO SCH ×2 (09:34→22:22)
[2017-05-02] MEDS: glipiZIDE 10 MG TAB PO SCH ×2 (09:35→22:21)
[2017-05-02] MEDS: PRIMIDONE 50 MG TAB PO SCH ×3 (09:35→17:00)
[2017-05-02] MEDS ORDERED: diphenhydrAMINE HCL 25 MG CAP PO PRN (16:15)
--- NOTE | 2017-05-02 16:17 | HHI.PR ---
Subjective Remarks Follow-up dyspnea/hypoxia, right lower extremity cellulitis. Patient still reporting pain in the leg. Feels that his breathing is improving. Still requiring supplemental oxygen. No chest pain. Objective Vitals Vital Signs Date Time Temp Pulse Resp B/P Pulse Ox O2 Delivery O2 Flow Rate FiO2 05/02/17 12:00 97.4 83 20 107/55 94 05/02/17 11:00 94 Nasal Cannula 4.00 Humidified 05/02/17 09:49 86 05/02/17 08:59 94 Nasal Cannula 4.00 05/02/17 08:00 97.4 94 20 112/64 94 05/02/17 04:00 97.8 95 20 126/60 93 05/02/17 00:00 97.8 93 20 139/65 95 05/01/17 22:30 Nasal Cannula 4.00 Humidified 05/01/17 20:01 84 05/01/17 20:00 97.7 85 20 106/54 96 05/01/17 19:28 97 Nasal Cannula 4.00 I/O 05/01/17 05/01/17 05/01/17 05/02/17 05/02/17 05/02/17 07:00 15:00 23:00 07:00 15:00 23:00 Intake Total 240 ml 480 ml 240 ml 240 ml Output Total 0 ml 500 ml 200 ml 1100 ml 575 ml Balance 240 ml -20 ml 40 ml -860 ml -575 ml Intake Oral 240 ml 480 ml 240 ml 240 ml Output Urine Total 0 ml 500 ml 200 ml 1100 ml 575 ml # Bowel Movements 0 0 Result Diagram: 05/02/1761605/02/17616 Imaging Last Impressions Head CT 04/29/17720 Signed Impressions: Service Date/Time: Saturday, April 29, 2017 07:55 - CONCLUSION: Negative for an acute process. Abdulkadir Whitaker MD FACR Chest X-Ray 04/29/17720 Signed Impressions: Service Date/Time: Saturday, April 29, 2017 08:07 - CONCLUSION: Mild interstitial edema. Abdulkadir Whitaker MD FACR Objective Remarks General: Morbidly obese male in no acute distress. Heart: Regular rate and rhythm. No murmur. Lungs: Mild scattered wheeze. Breathing is nonlabored. Abdomen: Soft, nontender, nondistended. Extremities: Status post left AKA. Right lower extremity with lymphedema. Manuelito bandage in place. Psych: Alert and oriented. Procedures None Urinary Catheter: No Vascular Central Line Catheter: No A/P Problem List: (1) Noncompliance ICD Code: Z91.19 Status: Acute (2) Altered mental status ICD Code: R41.82 Status: Acute (3) Hypoxia ICD Code: R09.02 Status: Acute (4) Congestive heart failure ICD Code: I50.9 Status: Acute (5) Infection associated with lymphedema ICD Code: B99.9 Status: Acute (6) Obesity (BMI 30-39.9) ICD Code: E66.9 Status: Chronic (7) Venous stasis dermatitis of right lower extremity ICD Code: I87.2 Status: Acute (8) Diabetes mellitus type 2, uncontrolled ICD Code: E11.9 Status: Chronic (9) Wound infection ICD Code: T14.8 Status: Acute (10) Tobacco abuse ICD Code: Z72.0 Status: Chronic (11) Cellulitis ICD Code: L03.90 Status: Acute (12) Cellulitis of right leg ICD Code: L03.115 Status: Acute (13) COPD (chronic obstructive pulmonary disease) ICD Code: J44.9 Status: Chronic (14) History of MRSA infection ICD Code: Z86.14 Assessment and Plan 1. Acute hypoxic respiratory failure: Continue supplemental oxygen, bronchodilators. Continue oxygen per nasal cannula. 2. Hypoxic encephalopathy: Secondary to above. Improved. 3. Possible CHF: Echocardiogram shows grade 1 diastolic dysfunction. Monitor strict intake/output. CXR shows mild interstitial edema. Continue lasix. 4. DVT on chronic anticoagulation: INR is now therapeutic. Discontinue heparin drip. Continue Coumadin. 5. UTI: Continue antibiotics. Follow urine culture. 6. Coronary artery disease, hypertension, hyperlipidemia: Continue diltiazem, statin. 7. Diabetes mellitus: Hemoglobin A1c is 6.4. Continue metformin, glipizide. Monitor Accu-Cheks and cover with sliding scale insulin. Diabetic diet. 8. COPD: Continue bronchodilators, supplemental oxygen, prednisone. 9. Chronic right lower extremity lymphedema: Continue wound care. Appreciate podiatry recommendations. 10. Recurrent right lower extremity cellulitis: Continue antibiotics (vancomycin , Zosyn). 11. Tobacco abuse: Patient has been counseled to quit smoking. Problem Qualifiers (1) Altered mental status: Qualified Code: R41.0 - Disorientation (2) Congestive heart failure: Qualified Code: I50.9 - Congestive heart failure, unspecified congestive heart failure chronicity, unspecified congestive heart failure type (3) Diabetes mellitus type 2, uncontrolled: Qualified Code: E11.51 - Uncontrolled type 2 diabetes mellitus with diabetic peripheral angiopathy without gangrene, with long-term current use of insulin Brandon Sheth MD May 02, 2017 16:17
[2017-05-02] MEDS: WARFARIN SOD 10 MG TAB PO SCH (16:33)
[2017-05-02] MEDS: PRAVASTATIN SOD 20 MG TAB PO SCH (22:21)
[2017-05-03] VITALS (8 sets, daily range): BP systolic 108–143; BP diastolic 58–95; PULSE 71–94; RESP 16–22; TEMP 97.5–97.8; O2SAT 92–95
[2017-05-03] MEDS: oxyCODONE/ACETAMINOPHEN 10 MG/325 MG TAB PO PRN ×4 (02:46→20:50)
[2017-05-03] MEDS: VANCOMYCIN INJ 2,000 MG in SODIUM CHLORID 0.9% 500 ML INJ 500 ML IV SCH ×2 (02:46→16:03)
[2017-05-03] MEDS: GABAPENTIN 100 MG CAP PO SCH ×4 (04:57→22:14)
[2017-05-03] MEDS: PIPERACIL-TAZO 4.5 GM PREMIX 100 ML IV SCH ×3 (04:58→20:51)
[2017-05-03 06:00] LABS: AUTOMATED NEUTROPHIL # 10.9 TH/MM3 (1.8-7.7); BASOPHIL # 0.1 TH/MM3 (0-0.2); BASOPHIL % 0.9 % (0.0-2.0); EOSINOPHIL # 0.3 TH/MM3 (0-0.4); HEMATOCRIT 28.6 % (39.0-51.0); HEMO FLAGS DIFF FINAL; LYMPH % 8.9 % (9.0-44.0); LYMPHOCYTE # 1.2 TH/MM3 (1.0-4.8); MEAN CELL VOLUME 81.2 FL (80.0-100.0); MEAN CORPUSCULAR HEMOGLOBIN 24.6 PG (27.0-34.0); MEAN CORPUSCULAR HGB CONC 30.3 % (32.0-36.0); NEUT % 81.2 % (16.0-70.0); PLATELET COUNT 307 TH/MM3 (150-450); RED BLOOD COUNT 3.52 MIL/MM3 (4.50-5.90); RED CELL DISTRIBUTION WIDTH 19.3 % (11.6-17.2); WHITE BLOOD COUNT 13.4 TH/MM3 (4.0-11.0)
[2017-05-03 06:07] LABS: APTT (PATIENT) 40.6 SEC (24.3-30.1)
[2017-05-03] MEDS: INSULIN ASPART SUPPLEMENTAL SCALE SQ SCH ×4 (06:28→20:54)
[2017-05-03] MEDS: RESP: ALBUTEROL 2.5 MG/IPRATROPIUM 0.5 MG NEB (SCH) NEB ×2 (07:30→13:33)
[2017-05-03] MEDS: NYSTATIN 100,000 U/GM OINT 15 GM TUBE TOPICAL SCH ×2 (09:00→20:56)
--- NOTE | 2017-05-03 09:04 | HHI.PR ---
Subjective Remarks Follow up hypoxia, cellulitis. Patient states that he wants to go home today. Denies dyspnea, chest pain. Leg is still painful, but not as severe today. Objective Vitals Vital Signs Date Time Temp Pulse Resp B/P Pulse Ox O2 Delivery O2 Flow Rate FiO2 05/03/17 07:33 93 Nasal Cannula 4.00 05/03/17 04:00 97.8 89 20 120/74 92 05/03/17 00:00 97.6 85 22 132/62 93 05/02/17 20:42 Nasal Cannula 4.00 Humidified 05/02/17 20:00 97.5 81 22 119/57 93 05/02/17 20:00 76 05/02/17 17:40 96 Nasal Cannula 4.00 05/02/17 16:00 97.7 73 20 107/55 95 05/02/17 12:00 97.4 83 20 107/55 94 05/02/17 11:00 94 Nasal Cannula 4.00 Humidified 05/02/17 09:49 86 05/02/17 08:59 94 Nasal Cannula 4.00 I/O 05/02/17 05/02/17 05/02/17 05/03/17 05/03/17 05/03/17 07:00 15:00 23:00 07:00 15:00 23:00 Intake Total 240 ml 480 ml 1500 ml 240 ml Output Total 1100 ml 1775 ml 800 ml 400 ml Balance -860 ml -1295 ml 700 ml -160 ml Intake Oral 240 ml 480 ml 950 ml 240 ml IV Total 550 ml Output Urine Total 1100 ml 1775 ml 800 ml 400 ml # Bowel Movements 0 0 Result Diagram: 05/03/17 0546 05/02/1717 Imaging Last Impressions Head CT 04/29/17720 Signed Impressions: Service Date/Time: Saturday, April 29, 2017 07:55 - CONCLUSION: Negative for an acute process. Abdulkadir Whitaker MD FACR Chest X-Ray 04/29/17720 Signed Impressions: Service Date/Time: Saturday, April 29, 2017 08:07 - CONCLUSION: Mild interstitial edema. Abdulkadir Whitaker MD FACR Objective Remarks General: Morbidly obese male in no acute distress. Heart: Regular rate and rhythm. No murmur. Lungs: Clear to auscultation bilaterally. Breathing is nonlabored. Abdomen: Soft, nontender, nondistended. Extremities: Status post left AKA. Right lower extremity with lymphedema. Manuelito bandage in place. Psych: Alert and oriented. Procedures None Urinary Catheter: No Vascular Central Line Catheter: No A/P Problem List: (1) Noncompliance ICD Code: Z91.19 Status: Acute (2) Altered mental status ICD Code: R41.82 Status: Acute (3) Hypoxia ICD Code: R09.02 Status: Acute (4) Congestive heart failure ICD Code: I50.9 Status: Acute (5) Infection associated with lymphedema ICD Code: B99.9 Status: Acute (6) Obesity (BMI 30-39.9) ICD Code: E66.9 Status: Chronic (7) Venous stasis dermatitis of right lower extremity ICD Code: I87.2 Status: Acute (8) Diabetes mellitus type 2, uncontrolled ICD Code: E11.9 Status: Chronic (9) Wound infection ICD Code: T14.8 Status: Acute (10) Tobacco abuse ICD Code: Z72.0 Status: Chronic (11) Cellulitis ICD Code: L03.90 Status: Acute (12) Cellulitis of right leg ICD Code: L03.115 Status: Acute (13) COPD (chronic obstructive pulmonary disease) ICD Code: J44.9 Status: Chronic (14) History of MRSA infection ICD Code: Z86.14 Assessment and Plan 1. Acute hypoxic respiratory failure: Continue supplemental oxygen, bronchodilators. Continue oxygen per nasal cannula. May need home oxygen. 2. Hypoxic encephalopathy: Secondary to above. Improved. 3. Possible CHF: Echocardiogram shows grade 1 diastolic dysfunction. Monitor strict intake/output. CXR shows mild interstitial edema. Continue lasix. 4. DVT on chronic anticoagulation: INR is now therapeutic. Continue Coumadin. 5. UTI: Continue antibiotics. Urine culture growing enterococcus. 6. Coronary artery disease, hypertension, hyperlipidemia: Continue diltiazem, statin. 7. Diabetes mellitus: Hemoglobin A1c is 6.4. Continue metformin, glipizide. Monitor Accu-Cheks and cover with sliding scale insulin. Diabetic diet. 8. COPD: Continue bronchodilators, supplemental oxygen, prednisone. 9. Chronic right lower extremity lymphedema: Continue wound care. Appreciate podiatry recommendations. 10. Recurrent right lower extremity cellulitis: Continue antibiotics (vancomycin , Zosyn). 11. Tobacco abuse: Patient has been counseled to quit smoking. Discharge Planning The patient wants to be discharged home. He is still requiring 4L of oxygen. Will try to wean oxygen as tolerated. Check home oxygen test. PT to evaluate. Patient needs to be able to transfer from bed to wheelchair prior to discharge. Problem Qualifiers (1) Altered mental status: Qualified Code: R41.0 - Disorientation (2) Congestive heart failure: Qualified Code: I50.9 - Congestive heart failure, unspecified congestive heart failure chronicity, unspecified congestive heart failure type (3) Diabetes mellitus type 2, uncontrolled: Qualified Code: E11.51 - Uncontrolled type 2 diabetes mellitus with diabetic peripheral angiopathy without gangrene, with long-term current use of insulin Brandon Sheth MD May 03, 2017 09:04
[2017-05-03] MEDS: DILTIAZEM-CD 240 MG CAP ER PO SCH (09:47)
[2017-05-03] MEDS: PREGABALIN 100 MG CAP PO SCH ×3 (09:47→16:03)
[2017-05-03] MEDS: LACTOBACILLUS ACIDOPHILUS TAB PO SCH ×3 (09:47→16:03)
[2017-05-03] MEDS: glipiZIDE 10 MG TAB PO SCH ×2 (09:47→20:49)
[2017-05-03] MEDS: POTASSIUM CHLORIDE 10 MEQ CONTROLLED RELEASE TAB PO SCH (09:47)
[2017-05-03] MEDS: predniSONE 10 MG TAB PO SCH ×2 (09:48→20:50)
[2017-05-03] MEDS: FUROSEMIDE 20 MG/2 ML VIAL IV PUSH SCH (09:48)
[2017-05-03] MEDS: SPIRONOLACTONE 25 MG TAB PO SCH (09:48)
[2017-05-03] MEDS: DOCUSATE SODIUM 50 MG/SENNA 8.6 MG TAB PO SCH ×2 (09:48→20:50)
[2017-05-03] MEDS: VENLAFAXINE HCL XR 75 MG CAP PO SCH (09:48)
[2017-05-03] MEDS: SODIUM CHLORIDE 0.9% FLUSH 10 ML FLUSH IV FLUSH SCH ×2 (09:49→20:55)
[2017-05-03] MEDS: PRIMIDONE 50 MG TAB PO SCH ×3 (09:49→16:03)
[2017-05-03] MEDS: WARFARIN SOD 10 MG TAB PO SCH (16:03)
[2017-05-03] MEDS: HYDROmorphone HCL PF 1 MG/ML VIAL IV PUSH PRN (17:00)
[2017-05-03] MEDS: PRAVASTATIN SOD 20 MG TAB PO SCH (20:50)
[2017-05-03] MEDS: ONDANSETRON HCL 4 MG/2 ML VIAL IVP PRN (22:13)
[2017-05-04] VITALS (10 sets, daily range): BP systolic 110–134; BP diastolic 58–65; PULSE 88–103; RESP 16–20; TEMP 97.3–98.5; O2SAT 91–96
[2017-05-04] MEDS: oxyCODONE/ACETAMINOPHEN 10 MG/325 MG TAB PO PRN ×6 (01:17→22:49)
[2017-05-04] MEDS ORDERED: PHARMACY ORDERED LAB ONE (02:45)
[2017-05-04] MEDS: VANCOMYCIN INJ 2,000 MG in SODIUM CHLORID 0.9% 500 ML INJ 500 ML IV SCH ×2 (03:00→03:17)
[2017-05-04 03:47] LABS: INTERNATIONAL NORMALIZED RATIO 2.4 RATIO
[2017-05-04 03:57] LABS: VANCOMYCIN TROUGH 29.3 MCG/ML (5.0-10.0)
[2017-05-04] MEDS: PIPERACIL-TAZO 4.5 GM PREMIX 100 ML IV SCH ×3 (05:25→20:38)
[2017-05-04] MEDS: GABAPENTIN 100 MG CAP PO SCH ×4 (05:28→23:25)
[2017-05-04] MEDS: INSULIN ASPART SUPPLEMENTAL SCALE SQ SCH ×4 (07:00→20:38)
--- NOTE | 2017-05-04 07:41 | RADRPT ---
EXAM DATE/TIME: 05/04/2017 07:05 [place] COMPARISON: CHEST SINGLE AP, April 29, 2017, 8:07. INDICATIONS : Hypoxia MEDICAL HISTORY : Chronic obstructive pulmonary disease. Diabetes mellitus type II. Stroke SURGICAL HISTORY : Above left knee amputation ENCOUNTER: Subsequent ACUITY: 1 week PAIN SCORE: 0/10 LOCATION: Bilateral chest FINDINGS: A single view of the chest demonstrates minimal interstitial prominence. without evidence of mass, in filtrate or effusion. Gthrfi-m-Wddn in good position and unchanged. The cardiomediastinal contours ar e unremark Right Mediport catheter unchanged.able. Osseous structures are intact. CONCLUSION: Minimal interstitial disease, slightly improved, otherwise normal chest. Florin Castro MD on May 04, 2017 at 7:38 Board Certified Radiologist. This report was verified electronically.
[2017-05-04 07:48] LABS: BLOOD GAS BASE EXCESS 10.8 mmol/L (-2-2); BLOOD GAS CARBOXYHEMOGLOBIN 1.6 % (0-4); BLOOD GAS HCO3 37 mmol/L (22-26); BLOOD GAS METHEMOGLOBIN 0.7 % (0-2); BLOOD GAS O2 HGB SATURATION 92 % (90-100); BLOOD GAS OXYGEN CONTENT 11.4 Vol % (12.0-20.0); BLOOD GAS PCO2 75 mmHg (38-42); BLOOD GAS PO2 75 mmHg (61-120); BLOOD GAS TOTAL HGB 8.8 G/DL (12.0-16.0); TEMP CORR TO 98.6
[2017-05-04 07:49] LABS: CRITICAL VALUE YES; DRAW SITE RT RADIAL; FIO2 35 %; LITER FLOW 6 L/M; NUMBER OF ARTERIAL PUNCTURES 1; OXYGEN DEVICE MASK; STAT YES; ULNAR PULSE PRESENT
[2017-05-04] MEDS: RESP: ALBUTEROL 2.5 MG/IPRATROPIUM 0.5 MG NEB (SCH) NEB ×4 (07:53→19:31)
--- NOTE | 2017-05-04 08:19 | HHI.PR ---
Subjective Remarks Patient with acute desaturation this morning. He was found sleeping with an oxygen saturation of 78%. He had removed his oxygen while sleeping. Respiratory was paged and placed a Ventimask with 6 L on the patient with improvement of his oxygen saturation to 94%. Patient has been afebrile. Seen and examined this morning, denies any shortness of breath or difficulty breathing. Chest x-ray within normal limits. ABG significant for a pH of 7.31 and a CO2 of 75. Oxygen saturation 92% on 6 L Ventimask. Objective Vitals Vital Signs Date Time Temp Pulse Resp B/P Pulse Ox O2 Delivery O2 Flow Rate FiO2 05/04/17 07:55 94 Venturi Mask 6.00 35 05/04/17 05:28 97.3 88 18 134/64 91 05/04/17 00:04 97.3 90 16 133/65 92 05/03/17 20:00 Nasal Cannula 4.00 05/03/17 19:54 97.5 83 16 117/58 93 05/03/17 16:00 97.8 71 20 108/58 93 05/03/17 12:00 97.6 94 18 110/67 92 05/03/17 12:00 Nasal Cannula 4.00 05/03/17 09:00 89 I/O 05/03/17 05/03/17 05/03/17 05/04/17 05/04/17 05/04/17 07:00 15:00 23:00 07:00 15:00 23:00 Intake Total 240 ml 820 ml 1200 ml 480 ml Output Total 400 ml 1750 ml 250 ml 2600 ml Balance -160 ml -930 ml 950 ml -2120 ml Intake Oral 240 ml 720 ml 1200 ml 480 ml IV Total 100 ml Output Urine Total 400 ml 1750 ml 250 ml 2600 ml # Bowel Movements 0 0 0 Result Diagram: 05/03/17 0546 05/04/17 0320 Objective Remarks General: Morbidly obese male in no acute distress. Heart: Regular rate and rhythm. No murmur. Lungs: Breathing is nonlabored. Bilateral expiratory wheezes. Fine crackles in the bases. Abdomen: Soft, nontender, nondistended. Extremities: Status post left AKA. Right lower extremity with lymphedema. Manuelito bandage in place. Psych: Alert and oriented. Procedures None A/P Problem List: (1) Noncompliance ICD Code: Z91.19 Status: Acute (2) Altered mental status ICD Code: R41.82 Status: Acute (3) Hypoxia ICD Code: R09.02 Status: Acute (4) Congestive heart failure ICD Code: I50.9 Status: Acute (5) Infection associated with lymphedema ICD Code: B99.9 Status: Acute (6) Obesity (BMI 30-39.9) ICD Code: E66.9 Status: Chronic (7) Venous stasis dermatitis of right lower extremity ICD Code: I87.2 Status: Acute (8) Diabetes mellitus type 2, uncontrolled ICD Code: E11.9 Status: Chronic (9) Wound infection ICD Code: T14.8 Status: Acute (10) Tobacco abuse ICD Code: Z72.0 Status: Chronic (11) Cellulitis ICD Code: L03.90 Status: Acute (12) Cellulitis of right leg ICD Code: L03.115 Status: Acute (13) COPD (chronic obstructive pulmonary disease) ICD Code: J44.9 Status: Chronic (14) History of MRSA infection ICD Code: Z86.14 Assessment and Plan 1. Acute hypoxic respiratory failure: Patient with repeat episode of hypoxia this am. CXR wnl. ABG significant for pH of 7.31 and CO2 of 75. Satting well on Ventimask. Start Duonebs as patient with significant wheezing. Continue O2. Patient will likely need O2 at home, walk test ordered. 2. Hypoxic encephalopathy: Secondary to above. Improved. 3. Possible CHF: Echocardiogram shows grade 1 diastolic dysfunction. Monitor strict intake/output. CXR shows mild interstitial edema. Continue lasix. 4. DVT on chronic anticoagulation: INR is now therapeutic. Continue Coumadin. 5. UTI: Continue antibiotics. Urine culture growing enterococcus. 6. Coronary artery disease, hypertension, hyperlipidemia: Continue diltiazem, statin. 7. Diabetes mellitus: Hemoglobin A1c is 6.4. Continue metformin, glipizide. Monitor Accu-Cheks and cover with sliding scale insulin. Diabetic diet. 8. COPD: Continue bronchodilators, supplemental oxygen, prednisone. 9. Chronic right lower extremity lymphedema: Continue wound care. Appreciate podiatry recommendations. 10. Recurrent right lower extremity cellulitis: Continue antibiotics (vancomycin , Zosyn). 11. Tobacco abuse: Patient has been counseled to quit smoking. Discharge Planning Pending improvement in respiratory status and transition to PO antibiotics. Unclear at this time. Problem Qualifiers (1) Altered mental status: Qualified Code: R41.0 - Disorientation (2) Congestive heart failure: Qualified Code: I50.9 - Congestive heart failure, unspecified congestive heart failure chronicity, unspecified congestive heart failure type (3) Diabetes mellitus type 2, uncontrolled: Qualified Code: E11.51 - Uncontrolled type 2 diabetes mellitus with diabetic peripheral angiopathy without gangrene, with long-term current use of insulin Samantha Raygoza MD R3 May 04, 2017 08:19
[2017-05-04] MEDS: VENLAFAXINE HCL XR 75 MG CAP PO SCH (08:30)
[2017-05-04] MEDS: glipiZIDE 10 MG TAB PO SCH ×2 (08:30→20:37)
[2017-05-04] MEDS: POTASSIUM CHLORIDE 10 MEQ CONTROLLED RELEASE TAB PO SCH (08:30)
[2017-05-04] MEDS: PREGABALIN 100 MG CAP PO SCH ×3 (08:30→17:30)
[2017-05-04] MEDS: SPIRONOLACTONE 25 MG TAB PO SCH (08:30)
[2017-05-04] MEDS: PRIMIDONE 50 MG TAB PO SCH ×3 (08:30→17:30)
[2017-05-04] MEDS: FUROSEMIDE 20 MG/2 ML VIAL IV PUSH SCH (08:30)
[2017-05-04] MEDS: DILTIAZEM-CD 240 MG CAP ER PO SCH (08:30)
[2017-05-04] MEDS: predniSONE 10 MG TAB PO SCH ×2 (08:30→20:38)
[2017-05-04] MEDS: SODIUM CHLORIDE 0.9% FLUSH 10 ML FLUSH IV FLUSH SCH ×2 (08:32→20:38)
[2017-05-04] MEDS: DOCUSATE SODIUM 50 MG/SENNA 8.6 MG TAB PO SCH ×2 (09:00→20:37)
[2017-05-04] MEDS: NYSTATIN 100,000 U/GM OINT 15 GM TUBE TOPICAL SCH ×2 (09:00→20:38)
[2017-05-04] MEDS: LACTOBACILLUS ACIDOPHILUS TAB PO SCH ×3 (09:23→16:07)
[2017-05-04] MEDS ORDERED: WARFARIN SOD 5 MG TAB PO SCH (16:00)
[2017-05-04] MEDS: HYDROmorphone HCL PF 1 MG/ML VIAL IV PUSH PRN (16:42)
[2017-05-04] MEDS: PRAVASTATIN SOD 20 MG TAB PO SCH (20:37)
[2017-05-05] VITALS (8 sets, daily range): BP systolic 107–134; BP diastolic 53–87; PULSE 74–94; RESP 18–19; TEMP 97.4–98.1; O2SAT 92–97
[2017-05-05] MEDS: LACTOBACILLUS ACIDOPHILUS TAB PO SCH ×3 (05:20→16:09)
[2017-05-05] MEDS: GABAPENTIN 100 MG CAP PO SCH ×3 (05:20→17:00)
[2017-05-05] MEDS: oxyCODONE/ACETAMINOPHEN 10 MG/325 MG TAB PO PRN ×5 (05:20→21:27)
[2017-05-05] MEDS: PIPERACIL-TAZO 4.5 GM PREMIX 100 ML IV SCH ×3 (05:29→21:32)
[2017-05-05 05:46] LABS: AUTOMATED NEUTROPHIL # 10.5 TH/MM3 (1.8-7.7); BASOPHIL # 0.1 TH/MM3 (0-0.2); BASOPHIL % 0.7 % (0.0-2.0); EOSINOPHIL # 0.1 TH/MM3 (0-0.4); EOSINOPHIL % 0.9 % (0.0-4.0); HEMATOCRIT 28.8 % (39.0-51.0); HEMO FLAGS DIFF FINAL; LYMPH % 13.9 % (9.0-44.0); LYMPHOCYTE # 1.9 TH/MM3 (1.0-4.8); MEAN CELL VOLUME 80.5 FL (80.0-100.0); MEAN CORPUSCULAR HEMOGLOBIN 24.3 PG (27.0-34.0); MEAN CORPUSCULAR HGB CONC 30.2 % (32.0-36.0); MONO % 5.6 % (0.0-8.0); NEUT % 78.9 % (16.0-70.0); PLATELET COUNT 316 TH/MM3 (150-450); RED BLOOD COUNT 3.58 MIL/MM3 (4.50-5.90); RED CELL DISTRIBUTION WIDTH 19.1 % (11.6-17.2); WHITE BLOOD COUNT 13.4 TH/MM3 (4.0-11.0)
[2017-05-05 05:53] LABS: PROTHROMBIN TIME - PATIENT 34.7 SEC (9.8-11.6)
[2017-05-05 06:21] LABS: BICARBONATE 40.6 MEQ/L (21.0-32.0); POTASSIUM 4.3 MEQ/L (3.5-5.1)
[2017-05-05] MEDS: INSULIN ASPART SUPPLEMENTAL SCALE SQ SCH ×4 (06:21→21:00)
[2017-05-05] MEDS: RESP: ALBUTEROL 2.5 MG/IPRATROPIUM 0.5 MG NEB (SCH) NEB ×4 (08:05→21:47)
[2017-05-05] MEDS: NYSTATIN 100,000 U/GM OINT 15 GM TUBE TOPICAL SCH ×2 (09:00→21:00)
[2017-05-05] MEDS: PREGABALIN 100 MG CAP PO SCH ×3 (09:30→17:00)
[2017-05-05] MEDS: VENLAFAXINE HCL XR 75 MG CAP PO SCH (09:30)
[2017-05-05] MEDS: POTASSIUM CHLORIDE 10 MEQ CONTROLLED RELEASE TAB PO SCH (09:30)
[2017-05-05] MEDS: DILTIAZEM-CD 240 MG CAP ER PO SCH (09:30)
[2017-05-05] MEDS: glipiZIDE 10 MG TAB PO SCH ×2 (09:30→21:29)
[2017-05-05] MEDS: SODIUM CHLORIDE 0.9% FLUSH 10 ML FLUSH IV FLUSH SCH ×2 (09:30→21:29)
[2017-05-05] MEDS: FUROSEMIDE 20 MG/2 ML VIAL IV PUSH SCH (09:30)
[2017-05-05] MEDS: predniSONE 10 MG TAB PO SCH ×2 (09:30→21:28)
[2017-05-05] MEDS: DOCUSATE SODIUM 50 MG/SENNA 8.6 MG TAB PO SCH ×2 (09:30→21:00)
[2017-05-05] MEDS: SPIRONOLACTONE 25 MG TAB PO SCH (09:30)
[2017-05-05] MEDS: PRIMIDONE 50 MG TAB PO SCH ×3 (09:30→16:59)
--- NOTE | 2017-05-05 13:11 | HHI.PR ---
Subjective Remarks No acute events overnight. Afebrile, vital signs stable. Patient continues to require 6 L via Venturi mask. He denies shortness of breath. Complains of persistent wheezing despite breathing treatments. Denies fever/chills. Objective Vitals Vital Signs Date Time Temp Pulse Resp B/P (MAP) Pulse Ox O2 Delivery O2 Flow Rate FiO2 05/05/17 07:25 Venturi Mask 6.00 35 05/05/17 04:00 98.0 78 18 134/68 (90) 92 05/05/17 04:00 Venturi Mask 6.00 35 05/05/17 00:00 97.8 84 18 124/87 (99) 94 05/05/17 00:00 Venturi Mask 6.00 35 05/04/17 20:06 103 05/04/17 20:00 Venturi Mask 6.00 35 05/04/17 20:00 98.5 94 20 121/58 (79) 93 05/04/17 19:34 93 Venturi Mask 6.00 35 05/04/17 16:00 97.7 91 20 125/61 (82) 96 I/O 05/04/17 05/04/17 05/04/17 05/05/17 05/05/17 05/05/17 07:00 15:00 23:00 07:00 15:00 23:00 Intake Total 480 ml 960 ml 460 ml 340 ml Output Total 2600 ml 2150 ml 1100 ml 300 ml Balance -2120 ml -1190 ml -640 ml 40 ml Intake Oral 480 ml 960 ml 360 ml 240 ml IV Total 100 ml 100 ml Output Urine Total 2600 ml 2150 ml 1100 ml 300 ml # Bowel Movements 0 0 0 0 Result Diagram: 05/05/1751905/05/17519 Objective Remarks General: Morbidly obese male in no acute distress. Heart: Regular rate and rhythm. No murmur. Lungs: Breathing is nonlabored. Bilateral expiratory wheezes. Fine crackles in the bases. Abdomen: Soft, nontender, nondistended. Extremities: Status post left AKA. Right lower extremity with lymphedema. Manuelito bandage in place. Psych: Alert and oriented. Procedures None A/P Problem List: (1) Noncompliance ICD Code: Z91.19 - Patient's noncompliance with other medical treatment and regimen Status: Acute (2) Altered mental status ICD Code: R41.82 - Altered mental status, unspecified Status: Acute (3) Hypoxia ICD Code: R09.02 - Hypoxemia Status: Acute (4) Congestive heart failure ICD Code: I50.9 - Heart failure, unspecified Status: Acute (5) Infection associated with lymphedema ICD Code: B99.9 - Infection associated with lymphedema; I89.0 - Lymphedema, not elsewhere classified Status: Acute (6) Obesity (BMI 30-39.9) ICD Code: E66.9 - Obesity (BMI 30-39.9) Status: Chronic (7) Venous stasis dermatitis of right lower extremity ICD Code: I87.2 - Venous stasis dermatitis of right lower extremity Status: Acute (8) Diabetes mellitus type 2, uncontrolled ICD Code: E11.9 - Diabetes mellitus type 2, uncontrolled Status: Chronic (9) Wound infection ICD Code: T14.8 - Other injury of unspecified body region; L08.9 - Local infection of the skin and subcutaneous tissue, unspecified Status: Acute (10) Tobacco abuse ICD Code: Z72.0 - Tobacco abuse Status: Chronic (11) Cellulitis ICD Code: L03.90 - Cellulitis Status: Acute (12) Cellulitis of right leg ICD Code: L03.115 - Cellulitis of right lower limb Status: Acute (13) COPD (chronic obstructive pulmonary disease) ICD Code: J44.9 - Chronic obstructive pulmonary disease, unspecified Status: Chronic (14) History of MRSA infection ICD Code: Z86.14 - Personal history of Methicillin resistant Staphylococcus aureus infection Assessment and Plan 1. Acute hypoxic respiratory failure: Patient with repeat episode of hypoxia yesterday. CXR wnl. ABG significant for pH of 7.31 and CO2 of 75. Satting well on Venturi mask 6 L. Continue Duonebs as patient with significant wheezing. Continue O2. Patient will need home O2 at time of discharge, walk test completed. Pulmonary consulted as patient's respiratory status is not improving. 2. Hypoxic encephalopathy: Secondary to above. Improved. 3. Possible CHF: Echocardiogram shows grade 1 diastolic dysfunction. Monitor strict intake/output. CXR shows mild interstitial edema. Continue lasix. 4. DVT on chronic anticoagulation: INR is now therapeutic. Continue Coumadin. 5. UTI: Continue antibiotics. Urine culture growing enterococcus. 6. Coronary artery disease, hypertension, hyperlipidemia: Continue diltiazem, statin. 7. Diabetes mellitus: Hemoglobin A1c is 6.4. Continue metformin, glipizide. Monitor Accu-Cheks and cover with sliding scale insulin. Diabetic diet. 8. COPD: Continue bronchodilators, supplemental oxygen, prednisone. 9. Chronic right lower extremity lymphedema: Continue wound care. Appreciate podiatry recommendations. 10. Recurrent right lower extremity cellulitis: Continue antibiotics (vancomycin , Zosyn). 11. Tobacco abuse: Patient has been counseled to quit smoking. Discharge Planning Pending improvement in respiratory status and transition to PO antibiotics. Unclear at this time. Problem Qualifiers (1) Altered mental status: (2) Congestive heart failure: (3) Diabetes mellitus type 2, uncontrolled: Samantha Raygoza MD R3 May 05, 2017 13:11
--- NOTE | 2017-05-05 15:52 | MB ---
cc: [place] [facility] M.D. DATE OF CONSULTATION: 05/05/2017. HISTORY OF PRESENT ILLNESS: Mr. Contreras is a 62-year-old white male with extensive prior medical history with multiple comorbidities including diabetes, hypertension, hyperlipidemia, coronary artery disease, previous RI and a stroke last June associated with respiratory failure, peripheral arterial disease and history of recurrent thromboembolism for which he is on chronic anticoagulation. He has also had an [id number] amputation on the left he says for infection, probably a combination of infection and peripheral artery disease and very severe chronic cellulitis and lymphedema on the right as well. He presented after being after falling when trying to get into his wheelchair at home. He was confused. Initially on presentation to the emergency room, his O2 sat was in the 80s. He was having difficulty breathing. He was confused. He was diuresed and now several days later things have improved. However, yesterday an arterial blood gas was performed as a follow-up since he presented with carboxyhemoglobinemia of 6% with a pO2 of 75 with a somewhat compensated pH at 7.3. Wheezing persisted and pulmonary is consulted for further evaluation. 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 [facility] He has had a sleep study within the last 3 years that he was told did not warrant him being on C-PAP but apparently was not normal. At home, he has an inhaler but he has not been on oxygen therapy previously. He denies purulent sputum or hemoptysis. He says he is feeling absolutely comfortable now, although he says he always gets worse when he is not up and about in his electric wheelchair and he is confined to bed basically here because of his size and the amputation. Additional studies during this hospitalization: White count was initially elevated at 13.58 and it is still 13.4, hemoglobin 8.7, platelet counts been in the 300,000 range. Blood gases as noted above. INR is 3. He is on chronic Coumadin. BUN is 19, creatinine of 0.7, blood sugars have been in the 130 range. His bicarb is 40. MEDICATIONS: Medications are reviewed. He is on: 1. Coumadin. 2. Albuterol and Atrovent nebulization. 3. Potassium. 4. Percocet. 5. PRN Dilaudid. 6. 10 milligrams of Prednisone twice a day. 7. Aldactone. 8. Effexor. 9. Glipizide. 10. Pravachol. 11. Sliding scale insulin. 12. Zosyn. 13. Lyrica. 14. Mysoline. 15. Cardizem. 16. Neurontin. 17. Lactinex. 18. PRN Tylenol. 19. Dulcolax. SOCIAL HISTORY He is and living with his who also has disability due to amputation. They currently live alone and manage their own affairs but his son and [id number] are planning on moving in soon because their problems have been more difficult to manage. ALLERGIES Multiple reviewed in the EMR. PAST SURGICAL HISTORY: Additional past surgical history: 1. He had an aneurysm clipping in 1990. 2. The left above-knee amputation. 3. Cholecystectomy. 4. Appendectomy. 5. Hemorrhoidectomy. 6. A previous port placement. 7. He has had several strokes in the past including the one last June associated with respiratory failure. 8. He has a history of MRSA skin infections with his cellulitis. PHYSICAL EXAMINATION: GENERAL: An obese white male lying in bed very comfortable on 4 liters of oxygen. VITAL SIGNS: Saturations are in the range of 90-94%. He is afebrile. His pulse is 98 and regular. Blood pressure is 120/60. HEAD, EYES, EARS, NOSE, THROAT: Sclerae anicteric. Mucous membranes are moist. NECK: Neck veins are not distended. CHEST: Currently no wheezing audible. No congestion. No rales. HEART: Soft systolic murmur. No audible S3. ABDOMEN: A very obese abdomen. EXTREMITIES: Above-knee amputation on the left. The right leg is wrapped but the foot is visible and there is extreme edema and dermatitis without erythema. Nail beds are pink. IMAGING STUDIES: Followup chest x-ray on 05/04 reveals minimal interstitial edema. DISCUSSION: Mr. Contreras has very significant comorbidities including heart disease, cerebrovascular disease, probable significant COPD. I suspect he has obstructive sleep apnea, although he has had testing several years ago which apparently did not warrant C-PAP and now has chronic respiratory failure. The blood gases on May 04 were poor but he actually looks very stable. I will repeat this again tomorrow on nasal cannula to see if these stabilized. Here in the hospital, I would suggest continuing his bronchodilators and oxygen and we might be able to reduce the prednisone dose a bit before he gets discharge but I suspect he is going to need oxygen indefinitely until we can get appropriate [facility] with the [facility]. I have also discussed with him the possibility that he needs a follow-up sleep study which he will discuss with the [facility] as well. I will follow him with you here in the hospital since he is stable but marginally compensated. Further diagnostic and/or therapeutic intervention will depend on his ongoing clinical course. R. MD TIARRA Lopez/GERALD /2:45 PM /3:38 PM
[2017-05-05 18:11] LABS: BLOOD GAS BASE EXCESS 14.6 mmol/L (-2-2); BLOOD GAS CARBOXYHEMOGLOBIN 1.6 % (0-4); BLOOD GAS HCO3 41 mmol/L (22-26); BLOOD GAS METHEMOGLOBIN 0.5 % (0-2); BLOOD GAS O2 HGB SATURATION 90 % (90-100); BLOOD GAS OXYGEN CONTENT 11.4 Vol % (12.0-20.0); BLOOD GAS PCO2 70 mmHg (38-42); BLOOD GAS PO2 66 mmHg (61-120); BLOOD GAS TOTAL HGB 8.9 G/DL (12.0-16.0); TEMP CORR TO 98.6
[2017-05-05 18:14] LABS: CRITICAL VALUE YES; DRAW SITE RT RADIAL; LITER FLOW 3 L/M; NUMBER OF ARTERIAL PUNCTURES 1; OXYGEN DEVICE NASAL CANNULA; STAT NO; ULNAR PULSE PRESENT
[2017-05-05] MEDS: PRAVASTATIN SOD 20 MG TAB PO SCH (21:27)
[2017-05-06] VITALS (9 sets, daily range): BP systolic 116–127; BP diastolic 56–66; PULSE 74–99; RESP 17–22; TEMP 97.2–98; O2SAT 93–95
[2017-05-06] MEDS: GABAPENTIN 100 MG CAP PO SCH ×4 (01:35→18:16)
[2017-05-06] MEDS: INSULIN ASPART SUPPLEMENTAL SCALE SQ SCH ×4 (06:17→21:00)
[2017-05-06] MEDS: PIPERACIL-TAZO 4.5 GM PREMIX 100 ML IV SCH ×3 (06:17→21:59)
[2017-05-06] MEDS: oxyCODONE/ACETAMINOPHEN 10 MG/325 MG TAB PO PRN ×4 (06:21→22:08)
[2017-05-06 07:14] LABS: AUTOMATED NEUTROPHIL # 9.6 TH/MM3 (1.8-7.7); BASOPHIL # 0.1 TH/MM3 (0-0.2); BASOPHIL % 0.7 % (0.0-2.0); EOSINOPHIL # 0.1 TH/MM3 (0-0.4); EOSINOPHIL % 0.9 % (0.0-4.0); HEMATOCRIT 29.2 % (39.0-51.0); HEMO FLAGS DIFF FINAL; LYMPH % 13.8 % (9.0-44.0); LYMPHOCYTE # 1.7 TH/MM3 (1.0-4.8); MEAN CELL VOLUME 80.1 FL (80.0-100.0); MEAN CORPUSCULAR HEMOGLOBIN 24.4 PG (27.0-34.0); MEAN CORPUSCULAR HGB CONC 30.5 % (32.0-36.0); MONO % 5.7 % (0.0-8.0); NEUT % 78.9 % (16.0-70.0); PLATELET COUNT 322 TH/MM3 (150-450); RED BLOOD COUNT 3.64 MIL/MM3 (4.50-5.90); RED CELL DISTRIBUTION WIDTH 19.2 % (11.6-17.2); WHITE BLOOD COUNT 12.2 TH/MM3 (4.0-11.0)
[2017-05-06 07:16] LABS: INTERNATIONAL NORMALIZED RATIO 2.4 RATIO; PROTHROMBIN TIME - PATIENT 27.4 SEC (9.8-11.6)
[2017-05-06 07:29] LABS: BICARBONATE 38.9 MEQ/L (21.0-32.0); POTASSIUM 4.1 MEQ/L (3.5-5.1)
[2017-05-06] MEDS: RESP: ALBUTEROL 2.5 MG/IPRATROPIUM 0.5 MG NEB (SCH) NEB ×4 (08:36→19:38)
[2017-05-06] MEDS: SPIRONOLACTONE 25 MG TAB PO SCH (08:50)
[2017-05-06] MEDS: VENLAFAXINE HCL XR 75 MG CAP PO SCH (08:50)
[2017-05-06] MEDS: predniSONE 10 MG TAB PO SCH ×2 (08:50→21:57)
[2017-05-06] MEDS: DOCUSATE SODIUM 50 MG/SENNA 8.6 MG TAB PO SCH ×2 (08:50→21:00)
[2017-05-06] MEDS: POTASSIUM CHLORIDE 10 MEQ CONTROLLED RELEASE TAB PO SCH (08:51)
[2017-05-06] MEDS: FUROSEMIDE 20 MG/2 ML VIAL IV PUSH SCH (08:51)
[2017-05-06] MEDS: glipiZIDE 10 MG TAB PO SCH ×2 (08:51→21:58)
[2017-05-06] MEDS: DILTIAZEM-CD 240 MG CAP ER PO SCH (08:51)
[2017-05-06] MEDS: SODIUM CHLORIDE 0.9% FLUSH 10 ML FLUSH IV FLUSH SCH ×2 (09:00→21:59)
[2017-05-06] MEDS: PREGABALIN 100 MG CAP PO SCH ×3 (09:08→18:16)
[2017-05-06] MEDS: LACTOBACILLUS ACIDOPHILUS TAB PO SCH ×3 (09:08→16:25)
[2017-05-06] MEDS: PRIMIDONE 50 MG TAB PO SCH ×3 (09:09→18:16)
[2017-05-06] MEDS: NYSTATIN 100,000 U/GM OINT 15 GM TUBE TOPICAL SCH ×2 (12:34→21:00)
[2017-05-06] MEDS: HYDROmorphone HCL PF 1 MG/ML VIAL IV PUSH PRN (12:39)
--- NOTE | 2017-05-06 15:10 | HHI.PR ---
Subjective Remarks Mr. Reyes is feeling better. He feels he is approaching baseline. He still oxygen dependent but would like to try to discharge home with oxygen if needed. Objective Vital Signs Date Time Temp Pulse Resp B/P (MAP) Pulse Ox O2 Delivery O2 Flow Rate FiO2 05/06/17 13:31 3.00 05/06/17 12:00 97.4 78 17 121/59 (79) 93 05/06/17 08:37 95 Nasal Cannula 3.00 05/06/17 08:00 98.0 74 17 126/60 (82) 94 05/06/17 07:50 99 05/06/17 04:00 97.2 88 22 116/56 (76) 94 05/06/17 00:00 97.3 88 18 123/59 (80) 95 05/05/17 21:49 92 Nasal Cannula 3.00 05/05/17 20:00 97.4 80 18 112/53 (72) 97 05/05/17 20:00 74 05/05/17 20:00 Nasal Cannula 3.00 05/05/17 16:04 98.1 89 19 116/55 (75) 94 I/O 05/05/17 05/05/17 05/05/17 05/06/17 05/06/17 05/06/17 07:00 15:00 23:00 07:00 15:00 23:00 Intake Total 340 ml 100 ml 960 ml 640 ml 100 ml Output Total 300 ml 850 ml 1650 ml Balance 40 ml 100 ml 110 ml -1010 ml 100 ml Intake Oral 240 ml 960 ml 640 ml IV Total 100 ml 100 ml 100 ml Output Urine Total 300 ml 850 ml 1650 ml # Bowel Movements 0 1 0 Result Diagram: 05/06/17 0650 05/06/17 0650 Objective Remarks GENERAL: NAD, A&Ox3 HEAD: Normocephalic. NECK: Supple, trachea midline. No lymphadenopathy. EYES: No scleral icterus. No injection or drainage. CARDIOVASCULAR: Regular rate and rhythm without murmurs, gallops, or rubs. RESPIRATORY: Breath sounds equal bilaterally. No accessory muscle use. GASTROINTESTINAL: Abdomen soft, non-tender, nondistended. MUSCULOSKELETAL: No cyanosis. Lymphedema at right leg. Left leg is amputated. SKIN: Warm and dry. NEURO: No focal neurological deficitis. A/P Problem List: (1) Smoker in home ICD Code: Z77.29 - Contact with and (suspected ) exposure to other hazardous substances Status: Acute (2) Congestive heart failure ICD Code: I50.9 - Heart failure, unspecified Status: Acute (3) History of TIA (transient ischemic attack) ICD Code: Z86.73 - History of TIA (transient ischemic attack) Status: Chronic (4) Morbidly obese ICD Code: E66.01 - Morbid (severe) obesity due to excess calories Status: Chronic (5) Mood disorder ICD Code: F39 - Mood disorder Status: Chronic (6) Acquired lymphedema ICD Code: I89.0 - Acquired lymphedema Status: Chronic (7) Coronary artery disease ICD Code: I25.10 - Coronary artery disease Status: Chronic (8) Venous stasis dermatitis of right lower extremity ICD Code: I87.2 - Venous stasis dermatitis of right lower extremity Status: Acute (9) Infection associated with lymphedema ICD Code: B99.9 - Infection associated with lymphedema; I89.0 - Lymphedema, not elsewhere classified Status: Acute (10) Obesity (BMI 30-39.9) ICD Code: E66.9 - Obesity (BMI 30-39.9) Status: Chronic (11) History of MRSA infection ICD Code: Z86.14 - Personal history of Methicillin resistant Staphylococcus aureus infection Assessment and Plan Assessment and Plan 62-year-old male admitted secondary to acute respiratory failure and CHF. Presently he is improving. He is hoping to discharge home. He will need to discharge with oxygen if he fails a walk test which has been ordered. Acute hypoxia Respiratory failure Chronic COPD Continue oxygen supplementation Plan for oxygen at home Pulmonology following Patient counseled to quit smoking Hypoxic encephalopathy Resolved Grade 1 diastolic heart failure Coronary artery disease Continue Lasix Presently stable Continue statin Hypertension Continue Cardizem Follow blood pressures Hyperlipidemia Continue statin UTI Continue antibiotics Diabetes mellitus type 2 Continue metformin and glipizide Diabetic diet Follow blood sugars Right lower extremity cellulitis Right lower extremity lymphedema Continue vancomycin Continue Zosyn DVT prophylaxis Coumadin Follow INR Problem Qualifiers (1) Congestive heart failure: (2) Coronary artery disease: Foster Johns MD May 06, 2017 15:09
[2017-05-06] MEDS ORDERED: OXYGENDME NAS.CANULA (15:59)
[2017-05-06] MEDS: WARFARIN SOD 4 MG TAB PO SCH (16:25)
[2017-05-06] MEDS: PRAVASTATIN SOD 20 MG TAB PO SCH (21:58)
[2017-05-07] VITALS: BP 122/58; PULSE 91; RESP 20; TEMP 98; O2SAT 94
[2017-05-07] MEDS: GABAPENTIN 100 MG CAP PO SCH ×3 (00:04→12:13)
[2017-05-07] MEDS: oxyCODONE/ACETAMINOPHEN 10 MG/325 MG TAB PO PRN ×4 (02:31→16:37)
[2017-05-07 04:00] VITALS: BP 125/57; PULSE 70; RESP 20; TEMP 97.4; O2SAT 94
[2017-05-07] MEDS: PIPERACIL-TAZO 4.5 GM PREMIX 100 ML IV SCH ×2 (06:00→14:17)
[2017-05-07] MEDS: INSULIN ASPART SUPPLEMENTAL SCALE SQ SCH ×2 (06:02→11:00)
[2017-05-07 06:22] LABS: HEMATOCRIT 29.1 % (39.0-51.0); MEAN CORPUSCULAR HEMOGLOBIN 24.4 PG (27.0-34.0); MEAN CORPUSCULAR HGB CONC 30.5 % (32.0-36.0); PLATELET COUNT 328 TH/MM3 (150-450); RED BLOOD COUNT 3.63 MIL/MM3 (4.50-5.90); RED CELL DISTRIBUTION WIDTH 19.3 % (11.6-17.2); REVIEW FLAG FINAL; WHITE BLOOD COUNT 12.7 TH/MM3 (4.0-11.0)
[2017-05-07 07:14] LABS: INTERNATIONAL NORMALIZED RATIO 1.5 RATIO; PROTHROMBIN TIME - PATIENT 16.7 SEC (9.8-11.6)
[2017-05-07 07:25] LABS: BICARBONATE 38.4 MEQ/L (21.0-32.0); POTASSIUM 4.2 MEQ/L (3.5-5.1)
[2017-05-07 08:00] VITALS: BP 123/58; PULSE 66; RESP 18; TEMP 97.6; O2SAT 98
[2017-05-07] MEDS: SODIUM CHLORIDE 0.9% FLUSH 10 ML FLUSH IV FLUSH SCH (08:06)
[2017-05-07] MEDS: NYSTATIN 100,000 U/GM OINT 15 GM TUBE TOPICAL SCH (09:00)
[2017-05-07] MEDS: predniSONE 10 MG TAB PO SCH (09:07)
[2017-05-07] MEDS: DILTIAZEM-CD 240 MG CAP ER PO SCH (09:07)
[2017-05-07] MEDS: VENLAFAXINE HCL XR 75 MG CAP PO SCH (09:07)
[2017-05-07] MEDS: DOCUSATE SODIUM 50 MG/SENNA 8.6 MG TAB PO SCH (09:07)
[2017-05-07] MEDS: SPIRONOLACTONE 25 MG TAB PO SCH (09:07)
[2017-05-07] MEDS: POTASSIUM CHLORIDE 10 MEQ CONTROLLED RELEASE TAB PO SCH (09:07)
[2017-05-07] MEDS: LACTOBACILLUS ACIDOPHILUS TAB PO SCH ×3 (09:07→16:37)
[2017-05-07] MEDS: PREGABALIN 100 MG CAP PO SCH ×2 (09:07→12:13)
[2017-05-07] MEDS: PRIMIDONE 50 MG TAB PO SCH ×2 (09:07→12:13)
[2017-05-07] MEDS: glipiZIDE 10 MG TAB PO SCH (09:07)
[2017-05-07] MEDS: FUROSEMIDE 20 MG/2 ML VIAL IV PUSH SCH (09:08)
[2017-05-07] MEDS ORDERED: VANCOMYCIN INJ 2,000 MG in SODIUM CHLORID 0.9% 500 ML INJ 500 ML IV SCH (10:00)
[2017-05-07 11:53] VITALS: BP 132/61; PULSE 69; RESP 18; TEMP 97.5; O2SAT 94
[2017-05-07] MEDS: RESP: ALBUTEROL 2.5 MG/IPRATROPIUM 0.5 MG NEB (SCH) NEB ×2 (12:15→16:00)
--- NOTE | 2017-05-07 12:21 | HHI.FF ---
Face to Face Verification Diagnosis: (1) Hypoxia (2) Congestive heart failure (3) History of TIA (transient ischemic attack) (4) Morbidly obese (5) Acquired lymphedema (6) Coronary artery disease (7) Venous stasis dermatitis of right lower extremity (8) Obesity (BMI 30-39.9) (9) COPD (chronic obstructive pulmonary disease) Physical Therapy Order: Evaluate and Treat Occupational Therapy Order: Evaluate and Treat Home Health Nursing Order: Signs/symptoms of disease process Oxygen administration education Wound care and dressing changes I have seen patient Jorge Alberto Contreras on 05/07/17. My clinical findings support the need for the requested home health care services because: Patient has SOB Deconditioned w/ increased weakness Limited ability to care for self High risk of falls I certify that my clinical findings support that this patient is homebound because: Hx COPD- exertion dyspnea/weakness Unsteady gait/balance Unsafe to leave home unassisted Qdd-bryxrcypsm-kngdyqrl bed/chair Unable to use public transportation Poor cardiac reserve Foster Johns MD May 07, 2017 12:21
[2017-05-07] MEDS ORDERED: COUM4TAB PO (12:26)
[2017-05-07] MEDS ORDERED: PRED10 PO (12:26)
[2017-05-07] MEDS ORDERED: FURO1TAB62 PO (12:28)
[2017-05-07 14:10] VITALS: O2SAT 96
--- NOTE | 2017-05-07 14:51 | HHI.DS ---
Discharge Summary Admission Date Apr 29, 2017 at 10:35 Discharge Date: May 07, 2017 Admitting Diagnosis hypoxia, CHF, carboxyhemoglobinemia, AMS (1) Noncompliance ICD Code: Z91.19 - Patient's noncompliance with other medical treatment and regimen Diagnosis: Secondary Status: Acute (2) Altered mental status ICD Code: R41.82 - Altered mental status, unspecified Diagnosis: Principal Status: Acute (3) Hypoxia ICD Code: R09.02 - Hypoxemia Diagnosis: Principal Status: Acute (4) Congestive heart failure ICD Code: I50.9 - Heart failure, unspecified Diagnosis: Principal Status: Acute (5) Infection associated with lymphedema ICD Code: B99.9 - Infection associated with lymphedema; I89.0 - Lymphedema, not elsewhere classified Diagnosis: Secondary Status: Acute (6) Obesity (BMI 30-39.9) ICD Code: E66.9 - Obesity (BMI 30-39.9) Diagnosis: Secondary Status: Chronic (7) Venous stasis dermatitis of right lower extremity ICD Code: I87.2 - Venous stasis dermatitis of right lower extremity Diagnosis: Secondary Status: Acute (8) Diabetes mellitus type 2, uncontrolled ICD Code: E11.9 - Diabetes mellitus type 2, uncontrolled Diagnosis: Secondary Status: Chronic (9) Wound infection ICD Code: T14.8 - Other injury of unspecified body region; L08.9 - Local infection of the skin and subcutaneous tissue, unspecified Diagnosis: Principal Status: Acute (10) Tobacco abuse ICD Code: Z72.0 - Tobacco abuse Status: Chronic (11) Cellulitis ICD Code: L03.90 - Cellulitis Diagnosis: Principal Status: Acute (12) Cellulitis of right leg ICD Code: L03.115 - Cellulitis of right lower limb Diagnosis: Principal Status: Acute (13) COPD (chronic obstructive pulmonary disease) ICD Code: J44.9 - Chronic obstructive pulmonary disease, unspecified Diagnosis: Principal Status: Chronic (14) History of MRSA infection ICD Code: Z86.14 - Personal history of Methicillin resistant Staphylococcus aureus infection Diagnosis: Secondary Procedures None Brief History - From Admission This is a 62-year-old male with a past medical history significant for HTN, DM, HLD, CAD s/p previous MT, CVA, PAD, h/o DVT on chronic anticoagulation, history of brain aneurysm status post clipping and chronic RLE lymphedema with recurrent cellulitic infection who presents to [facility] ED after being brought in by EMS due to patient becoming dizzy, sliding out of his wheelchair and being unable to get himself back into the wheelchair. Patient appears sedated at present. He does arouse to voice but appears to fall back asleep easily and will only respond to some questions. Therefore history is obtained from discussion with the patient directly as well as review of the computerized medical record. Patient reports a sudden onset of dizziness causing him to slide out of his wheelchair. He denies hitting his head or losing consciousness. He contacted the fire department after he was unable to get himself back into the wheelchair. Patient is morbidly obese and has a history of a left AKA as well as chronic lymphedema in the right lower extremity. Patient denies any associated complaints of recent illness, cough, chest pain, palpitations, shortness of breath, nausea, vomiting or abdominal pain. Patient denies any complaints of hematuria, dysuria, hematochezia or diarrhea. Patient states that he felt fine yesterday without any complaints. Patient was just hospitalized in our facility last month for treatment for recurrent right leg cellulitis. Patient is unclear on the medications he takes home and does not know dosages. Per the ED note, patient's blood sugar was stable while on route with EMS. He was noted to have a oxygen saturation of 88 % on room air upon his arrival. Patient does not require the use of oxygen at home. In the ED, chest x-ray was suggestive of increased interstitial edema. Patient was given Lasix. He was also noted to have some leukocytosis. ABG was suggestive of carboxyhemoglobinemia. Patient was placed on a Ventimask and repeat ABG was somewhat improved. CT of the head was obtained and was within normal limits. INR was subtherapeutic at 1.2. VQ scan is pending. PATIENT IS CONFUSED AND NOT A GOOD HISTORIAN. HISTORY FROM ER, SOME FROM PATIENT , AND MOST FROM OLD RECORDS. [facility] ER AND [facility] CBC/BMP: 05/07/17 0600 05/07/17 0600 Significant Findings Laboratory Tests Test 05/04/17 16:11 05/05/17 05:20 05/05/17 17:45 05/06/17 06:50 White Blood Count 13.4 TH/MM3 (4.0-11.0) 12.2 TH/MM3 (4.0-11.0) Red Blood Count 3.58 MIL/MM3 (4.50-5.90) 3.64 MIL/MM3 (4.50-5.90) Hemoglobin 8.7 GM/DL (13.0-17.0) 8.9 GM/DL (13.0-17.0) Hematocrit 28.8 % (39.0-51.0) 29.2 % (39.0-51.0) Mean Corpuscular Hemoglobin 24.3 PG (27.0-34.0) 24.4 PG (27.0-34.0) Mean Corpuscular Hemoglobin Concent 30.2 % (32.0-36.0) 30.5 % (32.0-36.0) Red Cell Distribution Width 19.1 % (11.6-17.2) 19.2 % (11.6-17.2) Neutrophils (%) (Auto) 78.9 % (16.0-70.0) 78.9 % (16.0-70.0) Neutrophils # (Auto) 10.5 TH/MM3 (1.8-7.7) 9.6 TH/MM3 (1.8-7.7) Prothrombin Time 34.7 SEC (9.8-11.6) 27.4 SEC (9.8-11.6) Blood Urea Nitrogen 19 MG/DL (7-18) Random Glucose 120 MG/DL (74-106) 131 MG/DL (74-106) Chloride Level 96 MEQ/L (98-107) 95 MEQ/L (98-107) Carbon Dioxide Level 40.6 MEQ/L (21.0-32.0) 38.9 MEQ/L (21.0-32.0) Anion Gap 2 MEQ/L (5-15) Blood Gas HCO3 41 mmol/L (22-26) Blood Gas Base Excess 14.6 mmol/L (-2-2) Arterial Blood Partial Pressure CO2 70 mmHg (38-42) Arterial Blood Oxygen Content 11.4 Vol % (12.0-20.0) Blood Gas Hemoglobin 8.9 G/DL (12.0-16.0) Test 05/07/17 06:00 White Blood Count 12.7 TH/MM3 (4.0-11.0) Red Blood Count 3.63 MIL/MM3 (4.50-5.90) Hemoglobin 8.9 GM/DL (13.0-17.0) Hematocrit 29.1 % (39.0-51.0) Mean Corpuscular Hemoglobin 24.4 PG (27.0-34.0) Mean Corpuscular Hemoglobin Concent 30.5 % (32.0-36.0) Red Cell Distribution Width 19.3 % (11.6-17.2) Prothrombin Time 16.7 SEC (9.8-11.6) Blood Urea Nitrogen 21 MG/DL (7-18) Random Glucose 117 MG/DL (74-106) Chloride Level 96 MEQ/L (98-107) Carbon Dioxide Level 38.4 MEQ/L (21.0-32.0) PE at Discharge General: Morbidly obese male in no acute distress. Heart: Regular rate and rhythm. No murmur. Lungs: Breathing is nonlabored. Bilateral expiratory wheezes. Fine crackles in the bases. Abdomen: Soft, nontender, nondistended. Extremities: Status post left AKA. Right lower extremity with lymphedema. Manuelito bandage in place. Psych: Alert and oriented. Hospital Course Mr. Contreras is a 62 old male. He was admitted secondary to hypoxia. He has CHF with COPD at baseline and both of these conditions were contributory to his global status. He was positive for UTI and cellulitis also. Antibiotics were provided and have been given for greater than one week now. Further antibiotic treatments not necessary at this point. His hypoxia improved somewhat but has not resolved. It appears he has chronic hypoxia and will need oxygen at discharge. His baseline status is bedbound with abilities to move within bed and scoot into his mobile wheelchair. His left leg amputation and chronic lymphedema of his right leg. Medically stable for return home today with home health care. She will discharge home with oxygen. Other medication changes are addition of 20 mg per day of Lasix and completion of a prednisone taper with 5 days of 5 mg by mouth daily prednisone. Pt Condition on Discharge: Stable Discharge Disposition: Disch w/ Home Health Serv Discharge Time: > 30 minutes Discharge Instructions DIET: Follow Instructions for: Heart Healthy Diet Activities you can perform: Regular-No Restrictions Follow up Referrals: PCP Follow-up - 2 Weeks New Medications: Furosemide (Lasix) 20 Mg Tab 20 MG PO DAILY for edema, #30 TAB 0 Refills Oxygen (O2) (Oxygen (O2)) Device LITER TI.CANULA CONTINUOUS for Prevent Hypoxemia, #2 Oxygen Concentrator Portable Gaseous 2 L/min via Nasal Canula Continuous For 99 months Prednisone (Prednisone) 10 Mg Tab 5 MG PO DAILY for Inflammation, #5 TAB Warfarin (Coumadin) 4 Mg Tab 4 MG PO DAILY@1600 for Blood Clot Prevention, #30 TAB Continued Medications: Amoxicillin-Clavulanate (Augmentin) 875-125 Mg Tab 1 TAB PO BID for Infection, #20 TAB 0 Refills Baclofen (Baclofen) 10 Mg Tab 10 MG PO TID for Muscle Spasm, TAB 0 Refills Diltiazem CD 24 HR (Diltiazem CD 24 HR) 240 Mg Caper 240 MG PO DAILY, #30 CAP 0 Refills Gabapentin (Gabapentin) 100 Mg Cap 100 MG PO Q6HR, #90 CAP 0 Refills Glipizide (Glipizide) 10 Mg Tab 20 MG PO BID for Blood Sugar Management, #60 TAB 0 Refills Take 30 minutes before a meal Hydrocodone-Acetaminophen (Sterling) 5-325 mg Tab 1 TAB PO Q6H PRN for PAIN, #40 TAB 0 Refills Hydromorphone (Dilaudid) 2 Mg Tab 2 MG PO DAILY PRN for Dressing Change, #20 TAB 0 Refills Lactobacillus Acidophilus (Lactobacillus Acidophilus) 1 Tab Tab 1 TAB PO TIDAC for Nutritional Supplement, #30 TAB 0 Refills Metformin (Metformin) 500 Mg Tab 1500 MG PO DAILY IN THE AM for Blood Sugar Management, #30 TAB 0 Refills Metformin (Metformin) 500 Mg Tab 1000 MG PO DAILY IN THE PM for Blood Sugar Management, #60 TAB 0 Refills Nystatin Topical (Nystatin Topical) 100,000 unit/gm Oint 1 APPLIC TOPICAL Q12HR for Fungal Infection, #1 TUBE Potassium Chloride ER (Potassium Chloride ER) 10 Meq Cap 10 MEQ PO DAILY for Electrolyte Replacement, #30 CAP 0 Refills Pravastatin (Pravastatin) 20 Mg Tab 20 MG PO HS for Cholesterol Management, #30 TAB 0 Refills Pregabalin (Lyrica) 100 Mg Cap 100 MG PO TID, #90 CAP 0 Refills Primidone (Primidone) 50 Mg Tab 50 MG PO TID for Control Seizures, #60 TAB 0 Refills Spironolactone (Spironolactone) 25 Mg Tab 25 MG PO DAILY, #30 TAB 0 Refills Venlafaxine ER 24 HR (Venlafaxine ER 24 HR) 150 Mg Tab 300 MG PO DAILY, #30 TAB 0 Refills Discontinued Medications: Warfarin (Warfarin) 5 Mg Tab 5 MG PO DAILY for Blood Clot Prevention, #30 TAB 0 Refills repeat INR in 1-2 days. Your doctor will adjust it accordingly. Warfarin (Coumadin) 2 Mg Tab 2 MG PO DAILY for Prevent Blood Clot, #15 TAB 0 Refills Foster Johns MD May 07, 2017 14:51
[2017-05-07] MEDS: WARFARIN SOD 4 MG TAB PO SCH (16:37)
[2017-05-09] MEDS ORDERED: PHARMACY ORDERED LAB ONE (09:45)
== END 2017-05-07 16:55 | disposition home health service (06) | DRG 189 ==
LOC: NEPC 07:06 → NEDA 10:35 → N04A 15:46
PROVIDERS: ADMIT Hospitalist; ATTEND Hospitalist
DX: J96.21 Acute and chronic respiratory failure with hypoxia (principal); G93.1 Anoxic brain damage, not elsewhere classified; I67.1 Cerebral aneurysm, nonruptured; E11.40 Type 2 diabetes mellitus with diabetic neuropathy, unspecified; I11.0 Hypertensive heart disease with heart failure; E11.51 Type 2 diabetes mellitus with diabetic peripheral angiopathy without gangrene; E66.01 Morbid (severe) obesity due to excess calories; L03.115 Cellulitis of right lower limb; I50.32 Chronic diastolic (congestive) heart failure; I48.91 Unspecified atrial fibrillation; G25.0 Essential tremor; N39.0 Urinary tract infection, site not specified; T83.511A Infection and inflammatory reaction due to indwelling urethral catheter, initial encounter; E11.65 Type 2 diabetes mellitus with hyperglycemia; F17.210 Nicotine dependence, cigarettes, uncomplicated; G47.30 Sleep apnea, unspecified; I25.2 Old myocardial infarction; J44.9 Chronic obstructive pulmonary disease, unspecified; I25.10 Atherosclerotic heart disease of native coronary artery without angina pectoris; M19.90 Unspecified osteoarthritis, unspecified site; B95.2 Enterococcus as the cause of diseases classified elsewhere; I87.2 Venous insufficiency (chronic) (peripheral); E78.5 Hyperlipidemia, unspecified; I89.0 Lymphedema, not elsewhere classified; Y84.6 Urinary catheterization as the cause of abnormal reaction of the patient, or of later complication, without mention of misadventure at the time of the procedure; D64.9 Anemia, unspecified; F39 Unspecified mood [affective] disorder; G44.209 Tension-type headache, unspecified, not intractable; W05.0XXA Fall from non-moving wheelchair, initial encounter; Z91.14 Patient's other noncompliance with medication regimen; Z86.14 Personal history of Methicillin resistant Staphylococcus aureus infection; Z91.19 Patient's noncompliance with other medical treatment and regimen; Z99.3 Dependence on wheelchair; Z86.73 Personal history of transient ischemic attack (TIA), and cerebral infarction without residual deficits; Z79.84 Long term (current) use of oral hypoglycemic drugs; Z86.718 Personal history of other venous thrombosis and embolism; Z89.612 Acquired absence of left leg above knee; Z79.01 Long term (current) use of anticoagulants
CPT/HCPCS: 36600; 51702; 70450; 71010; 76937; 80048; 80053; 80202; 80307; 81001; 82140; 82550; 82565; 82805; 82948; 83036; 83605; 83735; 83880; 84100; 84439; 84443; 84484; 85025; 85027; 85379; 85610; 85730; 87040; 87077; 87086; 87186; 93005; 93306; 94150; 94620; 94640; 94664; 96374; J1170; J1644; J1815; J1940; J1956; J2270; J2405; J2543; J3370; J7030; J7040; J7512

== ENCOUNTER 2017-05-29 13:19 | Emergency (ER) | payer OTHER ==
[~2017-05-29] VITALS: Ht 188 cm; Wt 145.0 kg
[~2017-05-29 13:19] MED LIST changes: -COUM2TAB PO; +COUM4TAB PO; +FURO1TAB62 PO; +OXYGENDME NAS.CANULA; +PRED10 PO; -WARF-23 PO
[2017-05-29 13:23] VITALS: BP 133/69; PULSE 100; RESP 20; TEMP 98.3; O2SAT 95
--- NOTE | 2017-05-29 14:24 | PD ---
HPI Chief Complaint: Skin Problem Time Seen by Provider: 14:24 Travel History International Travel<30 days: No Contact w/Intl Traveler<30days: No Traveled to known affect area: No History of Present Illness HPI 62 YO M with PMH of DM, COPD, chronic wound RLE presents to the ED for evaluation of wound of RLE. The patient states that his home health nurse noted "a dark, foul smelling area" of the leg when changing the dressing today and recommended that he be evaluated at the ED. The patient denies fever, chills, N/ V. He states that he is in his normal state of health. He is followed by the [facility]. He states that he has follow up on Saturday. PFSH Past Medical History Hx Anticoagulant Therapy: Yes (warfarin) Arthritis: Yes (OA) Asthma: No Atrial Fibrillation: Yes Autoimmune Disease: No Blood Disorders: Yes (PT. HAS HISTORY OF BLOOD CLOTS.) Anxiety: No Depression: No Heart Rhythm Problems: Yes Cancer: No ( ) Cardiac Catheterization: Yes Cardiomyopathy: Yes Cardiovascular Problems: Yes High Cholesterol: Yes Chemotherapy: No Chest Pain: Yes (hx of on nitroglycerin tabs average two tabsx2 monthly) Congestive Heart Failure: Yes COPD: Yes Cerebrovascular Accident: Yes (TIA X3) Coronary Artery Disease: Yes Diabetes: Yes Diminished Hearing: No Deep Vein Thrombosis: Yes Endocrine: Yes Gastrointestinal Disorders: No GERD: No Glaucoma: No Genitourinary: No Headaches: Yes Hepatitis: No Hiatal Hernia: No Hypertension: Yes Immune Disorder: No Implanted Vascular Access Dvce: Yes (PORT RIGHT CHEST WALL) Kidney Stones: No Musculoskeletal: Yes (back and AKA left leg) Neurologic: Yes (BRAIN SURGERY, ANEURYSM CLIPPED IN 1990, ESSENTIAL TREMORS) Psychiatric: No Reproductive: No Respiratory: Yes (COPD) Integumentary: Yes (CELLULITIS, WOUND RN DAILY ) Migraines: Yes Myocardial Infarction: Yes (X 2) Radiation Therapy: No Renal Failure: No Sickle Cell Disease: No Sleep Apnea: Yes Thyroid Disease: No Ulcer: No Past Surgical History Abdominal Surgery: Yes (APPENDECTOMY 1954) AICD: No Appendectomy: Yes Arteriovenous Shunt: No Body Medical Devices: BRAIN CLIPS, INFUSAPORT TO RIGHT CHEST Cardiac Surgery: No Cholecystectomy: No Ear Surgery: No Endocrine Surgery: No Eye Surgery: No Genitourinary Surgery: No Gynecologic Surgery: No Insulin Pump: No Joint Replacement: No Neurologic Surgery: Yes (BRAIN ANURYSIM CLIPPED IN 1990.) Oral Surgery: No Pacemaker: No Thoracic Surgery: Yes (TENSION PNEUMOTHORAX-CHEST TUBE --RIGHT 71) Tonsillectomy: Yes (1956) Other Surgery: Yes (brain and back sx) Social History Alcohol Use: No Tobacco Use: Yes Substance Use: No Allergies-Medications (Allergen,Severity, Reaction): Coded Allergies: MRI PRECAUTION (Verified Allergy, Severe, ANEURSYM CLIPPING, 05/29/17) diatrizoate meglumine (Unverified Allergy, Severe, SHOCK, 05/29/17) gadobenic acid (Unverified Allergy, Severe, SHOCK, 05/29/17) gadodiamide (Unverified Allergy, Severe, SHOCK, 05/29/17) gadoteridol (Unverified Allergy, Severe, SHOCK, 05/29/17) iodine (Unverified Allergy, Severe, 05/29/17) iodixanol (Unverified Allergy, Severe, SHOCK, 05/29/17) iohexol (Unverified Allergy, Severe, SHOCK, 05/29/17) potassium iodide (Unverified Allergy, Severe, 05/29/17) povidone-iodine (Unverified Allergy, Severe, 05/29/17) sodium iodide (Unverified Allergy, Severe, 05/29/17) sodium iodide (Unverified Allergy, Severe, 05/29/17) Reported Meds & Prescriptions Reported Meds & Active Scripts Active Keflex (Cephalexin) 500 Mg Capsule 500 Mg PO QID 14 Days Lasix (Furosemide) 20 Mg Tab 20 Mg PO DAILY Oxygen (O2) Device Liter TI.CANULA CONTINUOUS Oxygen Concentrator Portable Gaseous 2 L/min via Nasal Canula Continuous For 99 months Nystatin Topical 100,000 unit/gm Oint 1 Applic TOPICAL Q12HR Reported Warfarin 5 Mg Tab 5 Mg PO DAILY Lyrica (Pregabalin) 100 Mg Cap 100 Mg PO TID Glipizide 10 Mg Tab 20 Mg PO BID Take 30 minutes before a meal Venlafaxine ER 24 HR (Venlafaxine HCl) 150 Mg Tab 300 Mg PO DAILY Diltiazem CD 24 HR 240 Mg Caper 240 Mg PO DAILY Potassium Chloride ER (Potassium Chloride) 10 Meq Cap 10 Meq PO DAILY Primidone 50 Mg Tab 50 Mg PO TID Pravastatin 20 Mg Tab 20 Mg PO HS Metformin (Metformin HCl) 500 Mg Tab 1,000 Mg PO DAILY IN THE PM Spironolactone 25 Mg Tab 25 Mg PO DAILY Gabapentin 100 Mg Cap 100 Mg PO Q6HR Baclofen 10 Mg Tab 10 Mg PO TID Review of Systems Except as stated in HPI: all other systems reviewed are Neg Physical Exam Narrative GENERAL: Well-nourished, well-developed obese, pleasant white male in no acute distress. SKIN: Focused skin assessment warm/dry. There is chronic wound that encompasses the entire circumferential area of the right lower extremity below the knee. There is a small area on the anterior aspect in the midline that is slightly darkened but overall the entire wound is well granulated and without bleeding, warmth, drainage. There is a palpable DP pulse and the patient is able to wiggle the toes. HEAD: Normocephalic. EYES: No scleral icterus. No injection or drainage. NECK: Supple, trachea midline. No JVD or lymphadenopathy. CARDIOVASCULAR: Regular rate and rhythm without murmurs, gallops, or rubs. RESPIRATORY: Breath sounds equal bilaterally. No accessory muscle use. GASTROINTESTINAL: Abdomen soft, non-tender, nondistended. MUSCULOSKELETAL: No cyanosis, or edema. Left AKA. BACK: Nontender without obvious deformity. No CVA tenderness. Data Data Last Documented VS Vital Signs Date Time Temp Pulse Resp B/P (MAP) Pulse Ox O2 Delivery O2 Flow Rate FiO2 05/29/17 16:00 92 20 147/57 (87) 93 Nasal Cannula 2.00 05/29/17 13:23 98.3 Orders Orders Complete Blood Count With Diff (05/29/17 14:40) Wound Care (05/29/17 14:40) Wound Culture And Gram Stain (05/29/17 14:48) Pad, Foam Basic, Optifoam 4x5 (05/29/17 14:48) Acetamin-Hydrocod 325-5 Mg (Nash 5-325 (05/29/17 15:15) Heparin Central Flush (Heparin Central F (05/29/17 16:30) Sodium Chloride 0.9% Flush (Ns Flush) (05/29/17 16:30) Heparin Central Flush (Heparin Central F (05/29/17 16:30) Labs Laboratory Tests Test 05/29/17 15:10 White Blood Count 12.3 TH/MM3 Red Blood Count 4.11 MIL/MM3 Hemoglobin 9.7 GM/DL Hematocrit 32.4 % Mean Corpuscular Volume 78.7 FL Mean Corpuscular Hemoglobin 23.6 PG Mean Corpuscular Hemoglobin Concent 30.0 % Red Cell Distribution Width 19.3 % Platelet Count 409 TH/MM3 Mean Platelet Volume 7.3 FL Neutrophils (%) (Auto) 66.4 % Lymphocytes (%) (Auto) 21.7 % Monocytes (%) (Auto) 6.3 % Eosinophils (%) (Auto) 4.8 % Basophils (%) (Auto) 0.8 % Neutrophils # (Auto) 8.2 TH/MM3 Lymphocytes # (Auto) 2.7 TH/MM3 Monocytes # (Auto) 0.8 TH/MM3 Eosinophils # (Auto) 0.6 TH/MM3 Basophils # (Auto) 0.1 TH/MM3 CBC Comment DIFF FINAL Differential Comment MDM Medical Decision Making Medical Screen Exam Complete: Yes Emergency Medical Condition: Yes Differential Diagnosis diabetic ulcer versus chronic wound versus wound check versus cellulitis versus less likely sepsis versus other Narrative Course 62 YO M with PMH of DM, COPD, chronic wound RLE presents to the ED for evaluation of wound of RLE. The patient states that his home health nurse noted "a dark, foul smelling area" of the leg when changing the dressing today and recommended that he be evaluated at the ED. The patient denies fever, chills, N/ V. He states that he is in his normal state of health. [facility] Vitals reviewed. Physical exam reveals a chronic appearing wound that encompasses the entire circumferential surface of the right lower extremity. This is all well granulated and without signs of infection. There is a 1 cm area on the anterior aspect that is little darker in color but there is definitely no warmth, discharge, bleeding. The patient has great palpable DP pulses. Lab work reveals a leukocytosis of 12 which is the patient's baseline according to chart review. We'll re-dress the wound, provide him with a prescription for Keflex, a single dose of pain medication in the ED and have [facility]. The patient is agreeable to this care plan. He is stable and discharged home. Diagnosis Primary Impression: Visit for wound check Referrals: Primary Care Physician [facility] Patient Instructions: Chronic Wound Care (DC), General Instructions Additional Instructions: Rest, hydrate. Return to normal, gentle activities as tolerated. Begin Keflex today, take all antibiotics as prescribed, even if symptoms resolve. [facility]. Return to the ED for any urgent or emergent medical condition. Scripts Cephalexin (Keflex) 500 Mg Capsule 500 MG PO QID for Infection for 14 Days, CAP 0 Refills Prov: Brea Reddy MD 05/29/17 Disposition: 01 DISCHARGE HOME Condition: Stable Neha López May 29, 2017 14:24
[2017-05-29] MEDS ORDERED: WARF-23 PO (14:48)
[2017-05-29 15:00] VITALS: O2SAT 98
[2017-05-29] MEDS ORDERED: ACETAMINOPHEN/HYDROcodone 325 MG/5 MG TAB PO ONE (15:15)
[2017-05-29 15:28] LABS: AUTOMATED NEUTROPHIL # 8.2 TH/MM3 (1.8-7.7); BASOPHIL # 0.1 TH/MM3 (0-0.2); BASOPHIL % 0.8 % (0.0-2.0); EOSINOPHIL # 0.6 TH/MM3 (0-0.4); EOSINOPHIL % 4.8 % (0.0-4.0); HEMATOCRIT 32.4 % (39.0-51.0); HEMO FLAGS DIFF FINAL; LYMPH % 21.7 % (9.0-44.0); LYMPHOCYTE # 2.7 TH/MM3 (1.0-4.8); MEAN CELL VOLUME 78.7 FL (80.0-100.0); MEAN CORPUSCULAR HEMOGLOBIN 23.6 PG (27.0-34.0); MONO % 6.3 % (0.0-8.0); NEUT % 66.4 % (16.0-70.0); PLATELET COUNT 409 TH/MM3 (150-450); RED BLOOD COUNT 4.11 MIL/MM3 (4.50-5.90); RED CELL DISTRIBUTION WIDTH 19.3 % (11.6-17.2); WHITE BLOOD COUNT 12.3 TH/MM3 (4.0-11.0)
[2017-05-29] MEDS ORDERED: CEPH-460 PO (15:34)
[2017-05-29 16:00] VITALS: BP 147/57; PULSE 92; RESP 20; O2SAT 93
[2017-05-29] MEDS ORDERED: SODIUM CHLORIDE 0.9% FLUSH 10 ML FLUSH IVF PRN (16:30)
== END 2017-05-29 17:17 | disposition home or self-care (01) ==
LOC: NEPC 13:19
DX: S81.801D Unspecified open wound, right lower leg, subsequent encounter (principal); B95.62 Methicillin resistant Staphylococcus aureus infection as the cause of diseases classified elsewhere; B96.5 Pseudomonas (aeruginosa) (mallei) (pseudomallei) as the cause of diseases classified elsewhere; B95.1 Streptococcus, group B, as the cause of diseases classified elsewhere; E11.9 Type 2 diabetes mellitus without complications; I10 Essential (primary) hypertension; E78.00 Pure hypercholesterolemia, unspecified; G47.30 Sleep apnea, unspecified; I25.2 Old myocardial infarction; X58.XXXD Exposure to other specified factors, subsequent encounter; Z72.0 Tobacco use; Z79.84 Long term (current) use of oral hypoglycemic drugs; Z79.01 Long term (current) use of anticoagulants; Z87.39 Personal history of other diseases of the musculoskeletal system and connective tissue; Z86.79 Personal history of other diseases of the circulatory system; Z87.09 Personal history of other diseases of the respiratory system; Z86.718 Personal history of other venous thrombosis and embolism; Z86.69 Personal history of other diseases of the nervous system and sense organs; Z87.2 Personal history of diseases of the skin and subcutaneous tissue
CPT/HCPCS: 85025; 86403; 87070; 87077; 87186; 87205; 99283; J1642

== ENCOUNTER 2017-06-02 17:07 | Emergency (ER) | payer OTHER ==
[~2017-06-02] VITALS: Ht 188 cm; Wt 150.0 kg
[~2017-06-02 17:07] MED LIST changes: -AUGM875T3 PO; +CEPH-460 PO; -COUM4TAB PO; -DILA2TAB2 PO; -LACTTAB8 PO; -NORC5TAB PO; -PRED10 PO; +WARF-23 PO
[2017-06-02 17:08] VITALS: BP 138/79; PULSE 104; RESP 15; TEMP 98.1; O2SAT 95
[2017-06-03] MEDS ORDERED: LEVA500T20 PO (12:16)
== END 2017-06-02 19:10 | disposition left against medical advice (07) ==
LOC: NED 17:07
DX: Z53.21 Procedure and treatment not carried out due to patient leaving prior to being seen by health care provider (principal)
CPT/HCPCS: 99281

== ENCOUNTER 2017-06-03 11:25 | Emergency (ER) | payer OTHER ==
[~2017-06-03] VITALS: Ht 188 cm; Wt 160.0 kg
[2017-06-03 11:27] VITALS: BP 139/66; PULSE 100; RESP 20; TEMP 98.5; O2SAT 95
[2017-06-03] MEDS ORDERED: DALBAVANCIN INJ 1,500 MG in DEXTROSE 5% IN WATE 500 ML INJ 500 ML IV STA ×2 (12:03)
--- NOTE | 2017-06-03 12:14 | PD ---
HPI Chief Complaint: Skin Problem Time Seen by Provider: 11:46 Travel History International Travel<30 days: No Contact w/Intl Traveler<30days: No Traveled to known affect area: No History of Present Illness HPI This is a 62-year-old male with history of lymphedema, chronic venous stasis dermatitis of the right lower extremity, atrial fibrillation, diabetes, COPD, presents for wound recheck. The patient was seen here on May 29 for evaluation of his right lower extremity chronic wounds. At that time the complaint was that there was a dark foul-smelling area that was draining. He was started on Keflex and wound culture was performed. Wound cultures grow out staph aureus MRSA, pseudomonas, group B beta strep. He was advised to return. The patient reports that the area in his right leg is been increasingly painful over the past few weeks, seems to be somewhat worse than when he was seen on May 29. No fevers or chills. he has an appt with wound care physician in 3 days and regular visits by wound care nurses at home. Deneis fevers, chills. he has been seen here several times in the past for evaluation of his RLE. No other complaints. PFSH Past Medical History Hx Anticoagulant Therapy: Yes Arthritis: Yes (OA) Asthma: No Atrial Fibrillation: Yes Autoimmune Disease: No Blood Disorders: Yes (PT. HAS HISTORY OF BLOOD CLOTS.) Anxiety: No Depression: No Heart Rhythm Problems: Yes Cardiac Catheterization: Yes Cardiomyopathy: Yes Cardiovascular Problems: Yes High Cholesterol: Yes Chemotherapy: No Chest Pain: Yes Congestive Heart Failure: Yes COPD: Yes Cerebrovascular Accident: Yes Coronary Artery Disease: Yes Diabetes: Yes Diminished Hearing: No Deep Vein Thrombosis: Yes Endocrine: Yes Gastrointestinal Disorders: No GERD: No Glaucoma: No Genitourinary: No Headaches: Yes Hepatitis: No Hiatal Hernia: No Hypertension: Yes Immune Disorder: No Implanted Vascular Access Dvce: Yes (PORT RIGHT CHEST WALL) Kidney Stones: No Musculoskeletal: Yes (back and AKA left leg) Neurologic: Yes (BRAIN SURGERY, ANEURYSM CLIPPED IN 1990, ESSENTIAL TREMORS) Psychiatric: No Reproductive: No Respiratory: Yes Integumentary: Yes (CELLULITIS, WOUND RN DAILY ) Migraines: Yes Myocardial Infarction: Yes (X 2) Radiation Therapy: No Renal Failure: No Sickle Cell Disease: No Sleep Apnea: Yes Thyroid Disease: No Ulcer: No Past Surgical History Abdominal Surgery: Yes (APPENDECTOMY 1955) AICD: No Appendectomy: Yes Arteriovenous Shunt: No Body Medical Devices: BRAIN CLIPS, INFUSAPORT TO RIGHT CHEST Cardiac Surgery: No Cholecystectomy: No Ear Surgery: No Endocrine Surgery: No Eye Surgery: No Genitourinary Surgery: No Gynecologic Surgery: No Insulin Pump: No Joint Replacement: No Neurologic Surgery: Yes (BRAIN ANURYSIM CLIPPED IN 1990.) Oral Surgery: No Pacemaker: No Thoracic Surgery: Yes (TENSION PNEUMOTHORAX-CHEST TUBE --RIGHT 71) Tonsillectomy: Yes (1956) Other Surgery: Yes (brain and back sx) Social History Alcohol Use: No Tobacco Use: Yes (4 cig a day) Substance Use: No Allergies-Medications (Allergen,Severity, Reaction): Coded Allergies: MRI PRECAUTION (Verified Allergy, Severe, ANEURSYM CLIPPING, 05/29/17) diatrizoate meglumine (Unverified Allergy, Severe, SHOCK, 05/29/17) gadobenic acid (Unverified Allergy, Severe, SHOCK, 05/29/17) gadodiamide (Unverified Allergy, Severe, SHOCK, 05/29/17) gadoteridol (Unverified Allergy, Severe, SHOCK, 05/29/17) iodine (Unverified Allergy, Severe, 05/29/17) iodixanol (Unverified Allergy, Severe, SHOCK, 05/29/17) iohexol (Unverified Allergy, Severe, SHOCK, 05/29/17) potassium iodide (Unverified Allergy, Severe, 05/29/17) povidone-iodine (Unverified Allergy, Severe, 05/29/17) sodium iodide (Unverified Allergy, Severe, 05/29/17) sodium iodide (Unverified Allergy, Severe, 05/29/17) Reported Meds & Prescriptions Reported Meds & Active Scripts Active Levaquin (Levofloxacin) 500 Mg Tablet 500 Mg PO DAILY 10 Days Keflex (Cephalexin) 500 Mg Capsule 500 Mg PO QID 14 Days Lasix (Furosemide) 20 Mg Tab 20 Mg PO DAILY Oxygen (O2) Device Liter TI.CANULA CONTINUOUS Oxygen Concentrator Portable Gaseous 2 L/min via Nasal Canula Continuous For 99 months Nystatin Topical 100,000 unit/gm Oint 1 Applic TOPICAL Q12HR Reported Warfarin 5 Mg Tab 5 Mg PO DAILY Lyrica (Pregabalin) 100 Mg Cap 100 Mg PO TID Glipizide 10 Mg Tab 20 Mg PO BID Take 30 minutes before a meal Venlafaxine ER 24 HR (Venlafaxine HCl) 150 Mg Tab 300 Mg PO DAILY Diltiazem CD 24 HR 240 Mg Caper 240 Mg PO DAILY Potassium Chloride ER (Potassium Chloride) 10 Meq Cap 10 Meq PO DAILY Primidone 50 Mg Tab 50 Mg PO TID Pravastatin 20 Mg Tab 20 Mg PO HS Metformin (Metformin HCl) 500 Mg Tab 1,000 Mg PO DAILY IN THE PM Spironolactone 25 Mg Tab 25 Mg PO DAILY Gabapentin 100 Mg Cap 100 Mg PO Q6HR Baclofen 10 Mg Tab 10 Mg PO TID Review of Systems Except as stated in HPI: all other systems reviewed are Neg Physical Exam Narrative GENERAL: Chronically ill-appearing male who is in no acute distress. SKIN: Warm and dry. Examination of the right leg reveals large area of chronic hypertrophic skin changes with some anterior skin excoriation, erythema, edema without induration, fluctuance or abnormal drainage. HEAD: Atraumatic. Normocephalic. EYES: Pupils equal and round. No scleral icterus. No injection or drainage. ENT: No nasal bleeding or discharge. Mucous membranes pink and moist. NECK: Trachea midline. No JVD. CARDIOVASCULAR: Regular rate and rhythm. No murmur appreciated. RESPIRATORY: No accessory muscle use. Clear to auscultation. Breath sounds equal bilaterally. GASTROINTESTINAL: Abdomen soft, non-tender, nondistended. Hepatic and splenic margins not palpable. MUSCULOSKELETAL: Right lower extremity edema as noted above. Left leg amputation noted. NEUROLOGICAL: Awake and alert. No obvious cranial nerve deficits. Motor grossly within normal limits. Normal speech. Data Data Last Documented VS Vital Signs Date Time Temp Pulse Resp B/P (MAP) Pulse Ox O2 Delivery O2 Flow Rate FiO2 06/03/17 11:27 98.5 100 20 139/66 (90) 95 Room Air Orders Orders Asp:No Reaction To [facility]/Vanc (Asp Crit (06/03/17 12:15) Asp: Does Not Meet Inpt Admit (Asp Crit: (06/03/17 12:15) Asp: Iv Antibiotics Admit Only (Asp Crit (06/03/17 12:15) Asp: Location Of [facility] Admin (Asp Crit: (06/03/17 12:15) [facility] Information ([facility] (06/03/17 12:15) Dal[facility]avancin Inj (Dalvance Inj) (06/03/17 12:03) [facility] Medical Decision Making Medical Screen Exam Complete: Yes Emergency Medical Condition: Yes Medical Record Reviewed: Yes Differential Diagnosis Venous stasis dermatitis, cellulitis, cellulitis failed outpatient therapy, sepsis, intertrigo, erysipelas, necrotizing fasciitis Narrative Course 62-year-old male with history of lymphedema, venous stasis dermatitis right lower extremity with frequent cellulitic infections presents for wound recheck after being called in regards to positive wound cultures for MRSA, pseudomonas, group B strep. He appears well and his right lower extremity examination is very similar to the appearance during his previous visits. The plan at this time would be to give the patient a dose of IV Dalvance for long-acting MRSA coverage and to discharge the patient with oral Levaquin for pseudomonas coverage. he will follow up with his wound care physician 3 days as scheduled. He is agreeable to this plan. He understands to return for evidence of worsening infection. The patient is also encouraged to monitor his INR very closely. He is getting his INR checked tomorrow and it was recommended that he have it checked again on Saturday of this week. Diagnosis Primary Impression: Cellulitis of right leg Additional Impression: Venous stasis dermatitis of right lower extremity Additional Instructions: Medications prescribed. As discussed, you received Dalvance, Which is a long acting antibiotic, in the emergency room. Monitor INR very closely as antibiotics can affect your INR drastically. Follow up close with primary care physician, wound care physician, return for any new or worsening symptoms. Med/Other Pt SpecificInfo: Prescription(s) given Scripts Levofloxacin (Levaquin) 500 Mg Tablet 500 MG PO DAILY for Infection for 10 Days, #10 TAB 0 Refills Prov: Lisa Cali MD 06/03/17 Disposition: 01 DISCHARGE HOME Condition: Stable Jose C Hayes Jun 03, 2017 12:08
[2017-06-03] MEDS ORDERED: MISCELLANEOUS PHARMACY INFORMATION XX ONE (12:15)
[2017-06-03] MEDS ORDERED: ASP: No known hypersensitivity to Vanco, Telavancin, Dalbavancin OTHER ONE (12:15)
[2017-06-03] MEDS ORDERED: ASP: Location of Dalbavancin administration OTHER ONE (12:15)
[2017-06-03] MEDS ORDERED: ASP: Only reason for admit - IV antibiotics OTHER ONE (12:15)
[2017-06-03] MEDS ORDERED: ASP: Does not meet inpatient admission criteria OTHER ONE (12:15)
[2017-06-03] MEDS ORDERED: LEVA500T20 PO (12:16)
[2017-06-03 15:02] VITALS: BP 142/71
== END 2017-06-03 15:09 | disposition home or self-care (01) ==
LOC: NEPC 11:25
DX: L03.115 Cellulitis of right lower limb (principal); I87.2 Venous insufficiency (chronic) (peripheral); B95.62 Methicillin resistant Staphylococcus aureus infection as the cause of diseases classified elsewhere; B96.5 Pseudomonas (aeruginosa) (mallei) (pseudomallei) as the cause of diseases classified elsewhere; B95.1 Streptococcus, group B, as the cause of diseases classified elsewhere; E11.9 Type 2 diabetes mellitus without complications; I10 Essential (primary) hypertension; E78.00 Pure hypercholesterolemia, unspecified; Z72.0 Tobacco use; Z79.01 Long term (current) use of anticoagulants; Z79.84 Long term (current) use of oral hypoglycemic drugs; Z89.612 Acquired absence of left leg above knee; Z86.79 Personal history of other diseases of the circulatory system; Z87.39 Personal history of other diseases of the musculoskeletal system and connective tissue; Z87.09 Personal history of other diseases of the respiratory system; Z86.718 Personal history of other venous thrombosis and embolism; Z86.69 Personal history of other diseases of the nervous system and sense organs
CPT/HCPCS: 96374; 99284; J0875; J1642; J7060

== ENCOUNTER 2017-06-19 22:18 | Inpatient (IN) | payer OTHER, MEDICARE ==
[~2017-06-19 22:18] MED LIST changes: +LEVA500T20 PO
[2017-06-19 22:20] VITALS: BP 152/65; PULSE 112; RESP 16; TEMP 98.1; O2SAT 96
[2017-06-19] MEDS ORDERED: SODIUM CHLOR 0.9% 1000 ML INJ 1,000 ML IV SCH (23:04)
[2017-06-19] MEDS ORDERED: SODIUM CHLORIDE 0.9% FLUSH 10 ML FLUSH IV FLUSH PRN (23:15)
[2017-06-19] MEDS ORDERED: ONDANSETRON HCL 4 MG/2 ML VIAL IVP ONE (23:15)
--- NOTE | 2017-06-19 23:15 | PD ---
HPI Chief Complaint: Pain: Acute or Chronic Time Seen by Provider: 22:56 Travel History International Travel<30 days: No Contact w/Intl Traveler<30days: No Traveled to known affect area: No History of Present Illness HPI Patient is a 62-year-old male with history of morbid obesity, diabetes, CHF, left-sided [id number] amputation, right lower extremity ulcerations with severe lymphedema, presents to emergency room for wound check. Patient reports that he was seen by his home health nurse today, reports that today, he was noted to have new ulcerations to the anterior right coates. Patient reports that he was treated for MRSA on June 03, 2017 previously, he was given IV Delvance on 06/03/17 as well as was sent home with levaquin on that day. Patient had cultures which were positive for MRSA as well as for pseudomonas on May 29, 2017, patient was given Dalvance for treatment of the MRSA and levaquin for treatment of pseudomonas aeruginosa. Patient reports that his leg ulcerations are getting worse today. Patient denies any fevers or chills, patient with no other complaints at this time. PFSH Past Medical History Hx Anticoagulant Therapy: Yes Arthritis: Yes (OA) Asthma: No Atrial Fibrillation: Yes Autoimmune Disease: No Blood Disorders: Yes (PT. HAS HISTORY OF BLOOD CLOTS.) Anxiety: No Depression: No Heart Rhythm Problems: Yes Cardiac Catheterization: Yes Cardiomyopathy: Yes Cardiovascular Problems: Yes High Cholesterol: Yes Chemotherapy: No Chest Pain: Yes Congestive Heart Failure: Yes COPD: Yes Cerebrovascular Accident: Yes Coronary Artery Disease: Yes Diabetes: Yes Patient Takes Glucophage: No Diminished Hearing: No Deep Vein Thrombosis: Yes Endocrine: Yes Gastrointestinal Disorders: No GERD: No Glaucoma: No Genitourinary: No Headaches: Yes Hepatitis: No Hiatal Hernia: No Heparin Induced Thrombocytopen: No Hypertension: Yes Immune Disorder: No Implanted Vascular Access Dvce: Yes (PORT RIGHT CHEST WALL) Kidney Stones: No Medical other: Yes Neurologic: Yes (BRAIN SURGERY, ANEURYSM CLIPPED IN 1990, ESSENTIAL TREMORS) Psychiatric: No Reproductive: No Respiratory: Yes Integumentary: Yes (CELLULITIS, WOUND RN DAILY ) Migraines: Yes Myocardial Infarction: Yes (X 2) Radiation Therapy: No Renal Failure: No Sickle Cell Disease: No Sleep Apnea: Yes Thyroid Disease: No Ulcer: No ?: Not Past Surgical History Abdominal Surgery: Yes (APPENDECTOMY 1954) AICD: No Appendectomy: Yes Arteriovenous Shunt: No Body Medical Devices: BRAIN CLIPS, INFUSAPORT TO RIGHT CHEST Cardiac Surgery: No Cholecystectomy: No Ear Surgery: No Endocrine Surgery: No Eye Surgery: No Genitourinary Surgery: No Gynecologic Surgery: No Insulin Pump: No Joint Replacement: No Neurologic Surgery: Yes (BRAIN ANURYSIM CLIPPED IN 1990.) Oral Surgery: No Pacemaker: No Thoracic Surgery: Yes (TENSION PNEUMOTHORAX-CHEST TUBE --RIGHT 71) Tonsillectomy: Yes (1956) Other Surgery: Yes (brain and back sx) Social History Alcohol Use: No Tobacco Use: Yes (4 cig a day) Substance Use: No Allergies-Medications (Allergen,Severity, Reaction): Coded Allergies: MRI PRECAUTION (Verified Allergy, Severe, ANEURSYM CLIPPING, 06/19/17) diatrizoate meglumine (Unverified Allergy, Severe, SHOCK, 06/19/17) gadobenic acid (Unverified Allergy, Severe, SHOCK, 06/19/17) gadodiamide (Unverified Allergy, Severe, SHOCK, 06/19/17) gadoteridol (Unverified Allergy, Severe, SHOCK, 06/19/17) iodine (Unverified Allergy, Severe, 06/19/17) iodixanol (Unverified Allergy, Severe, SHOCK, 06/19/17) iohexol (Unverified Allergy, Severe, SHOCK, 06/19/17) potassium iodide (Unverified Allergy, Severe, 06/19/17) povidone-iodine (Unverified Allergy, Severe, 06/19/17) sodium iodide (Unverified Allergy, Severe, 06/19/17) sodium iodide (Unverified Allergy, Severe, 06/19/17) Reported Meds & Prescriptions Reported Meds & Active Scripts Active Lasix (Furosemide) 20 Mg Tab 20 Mg PO DAILY Oxygen (O2) Device Liter TI.CANULA CONTINUOUS Oxygen Concentrator Portable Gaseous 2 L/min via Nasal Canula Continuous For 99 months Nystatin Topical 100,000 unit/gm Oint 1 Applic TOPICAL Q12HR Reported Warfarin 5 Mg Tab 5 Mg PO DAILY Lyrica (Pregabalin) 100 Mg Cap 100 Mg PO TID Glipizide 10 Mg Tab 20 Mg PO BID Take 30 minutes before a meal Venlafaxine ER 24 HR (Venlafaxine HCl) 150 Mg Tab 300 Mg PO DAILY Diltiazem CD 24 HR 240 Mg Caper 240 Mg PO DAILY Potassium Chloride ER (Potassium Chloride) 10 Meq Cap 10 Meq PO DAILY Primidone 50 Mg Tab 50 Mg PO TID Pravastatin 20 Mg Tab 20 Mg PO HS Metformin (Metformin HCl) 500 Mg Tab 1,000 Mg PO DAILY IN THE PM Spironolactone 25 Mg Tab 25 Mg PO DAILY Gabapentin 100 Mg Cap 100 Mg PO Q6HR Baclofen 10 Mg Tab 10 Mg PO TID Review of Systems General / Constitutional: No: Fever, Chills Eyes: No: Visual changes HENT: No: Headaches Cardiovascular: No: Chest Pain or Discomfort Respiratory: No: Shortness of Breath Gastrointestinal: No: Abdominal Pain Genitourinary: No: Dysuria Musculoskeletal: No: Pain Skin: No Rash Neurologic: No: Weakness Psychiatric: No: Depression Endocrine: No: Polydipsia Hematologic/Lymphatic: No: Easy Bruising Physical Exam Narrative GENERAL: mild distress SKIN: Focused skin assessment warm/dry. HEAD: Atraumatic. Normocephalic. EYES: Pupils equal and round. No scleral icterus. No injection or drainage. ENT: No nasal bleeding or discharge. Mucous membranes pink and moist. NECK: Trachea midline. No JVD. CARDIOVASCULAR: Tachycardia. No murmur appreciated. RESPIRATORY: No accessory muscle use. Clear to auscultation. Breath sounds equal bilaterally. GASTROINTESTINAL: Abdomen soft, non-tender, nondistended. Hepatic and splenic margins not palpable. MUSCULOSKELETAL: No obvious deformities. No clubbing. No cyanosis. left sided aka, right lower extremity +3 lymphedema with clear drainage NEUROLOGICAL: Awake and alert. No obvious cranial nerve deficits. Motor grossly within normal limits. Normal speech. PSYCHIATRIC: Appropriate mood and affect; insight and judgment normal. Data Data Last Documented VS Vital Signs Date Time Temp Pulse Resp B/P (MAP) Pulse Ox O2 Delivery O2 Flow Rate FiO2 06/20/17 00:07 99 18 158/72 (100) 99 Nasal Cannula 3.00 06/19/17 22:20 98.1 Orders Orders Basic Metabolic Panel (Bmp) (06/19/17 23:04) Complete Blood Count With Diff (06/19/17 23:04) Lactic Acid (06/19/17 23:04) Iv Access Insert/Monitor (06/19/17 23:04) Ecg Monitoring (06/19/17 23:04) Oximetry (06/19/17 23:04) Ondansetron Inj (Zofran Inj) (06/19/17 23:15) Sodium Chlor 0.9% 1000 Ml Inj (Ns 1000 M (06/19/17 23:04) Sodium Chloride 0.9% Flush (Ns Flush) (06/19/17 23:15) Blood Culture (06/19/17 23:09) Sodium Chlor 0.9% 1000 Ml Inj (Ns 1000 M (06/20/17 00:30) Vancomycin Inj (Vancomycin Inj) (06/20/17 00:30) Piperacil-Tazo 3.375 Gm Premix (Zosyn 3. (06/20/17 00:30) Morphine Inj (Morphine Inj) (06/20/17 01:15) Admit Order (Ed Use Only) (06/20/17 01:19) Labs Laboratory Tests Test 06/19/17 23:35 White Blood Count 14.1 TH/MM3 Red Blood Count 4.09 MIL/MM3 Hemoglobin 9.6 GM/DL Hematocrit 31.6 % Mean Corpuscular Volume 77.2 FL Mean Corpuscular Hemoglobin 23.5 PG Mean Corpuscular Hemoglobin Concent 30.4 % Red Cell Distribution Width 18.7 % Platelet Count 396 TH/MM3 Mean Platelet Volume 7.6 FL Neutrophils (%) (Auto) 70.5 % Lymphocytes (%) (Auto) 19.4 % Monocytes (%) (Auto) 5.3 % Eosinophils (%) (Auto) 3.5 % Basophils (%) (Auto) 1.3 % Neutrophils # (Auto) 9.9 TH/MM3 Lymphocytes # (Auto) 2.7 TH/MM3 Monocytes # (Auto) 0.7 TH/MM3 Eosinophils # (Auto) 0.5 TH/MM3 Basophils # (Auto) 0.2 TH/MM3 CBC Comment DIFF FINAL Differential Comment Blood Urea Nitrogen 12 MG/DL Creatinine 1.02 MG/DL Random Glucose 138 MG/DL Calcium Level 8.6 MG/DL Sodium Level 138 MEQ/L Potassium Level 3.8 MEQ/L Chloride Level 99 MEQ/L Carbon Dioxide Level 29.7 MEQ/L Anion Gap 9 MEQ/L Estimat Glomerular Filtration Rate 74 ML/MIN Lactic Acid Level 3.3 mmol/L MDM Medical Decision Making Medical Screen Exam Complete: Yes Emergency Medical Condition: Yes Medical Record Reviewed: Yes Interpretation(s) Vital Signs Date Time Temp Pulse Resp B/P (MAP) Pulse Ox O2 Delivery O2 Flow Rate FiO2 06/19/17 22:20 98.1 112 16 152/65 (94) 96 Room Air Differential Diagnosis Differential includes lymphedema, cellulitis, wound infection, acute on chronic ulcerations Narrative Course 62-year-old male who presents to emergency room with complaints of acute on chronic lymphedema to right lower extremity with infection. He is been on a course of treatment for MRSA as well as pseudomonas with Levaquin as well as Dalvance, reports that he has noticed new ulcerations to his anterior coates today and his home health care nurse became concerned. There is no obvious streaking on exam or drainage. Plan to obtain lab work including blood cultures. Will administer IVF and monitor patient Vital Signs Date Time Temp Pulse Resp B/P (MAP) Pulse Ox O2 Delivery O2 Flow Rate FiO2 06/19/17 23:37 18 06/19/17 22:20 98.1 112 16 152/65 (94) 96 Room Air CBC & BMP Diagram 06/19/17 23:35 Calcium Level 8.6 lactic acid 3.3 Patient has been pancultured, he has been given Zosyn as well as vancomycin. Will admit to medicine service Case reviewed with Dr. Ruiz who accepts pt to service Diagnosis Primary Impression: Cellulitis of right leg Admitting Information Admitting Physician Requests: Admit Samantha Patrick DO Jun 19, 2017 23:15
[2017-06-19 23:37] VITALS: RESP 18
[2017-06-19 23:45] LABS: AUTOMATED NEUTROPHIL # 9.9 TH/MM3 (1.8-7.7); BASOPHIL # 0.2 TH/MM3 (0-0.2); BASOPHIL % 1.3 % (0.0-2.0); EOSINOPHIL # 0.5 TH/MM3 (0-0.4); EOSINOPHIL % 3.5 % (0.0-4.0); HEMATOCRIT 31.6 % (39.0-51.0); HEMO FLAGS DIFF FINAL; LYMPH % 19.4 % (9.0-44.0); LYMPHOCYTE # 2.7 TH/MM3 (1.0-4.8); MEAN CELL VOLUME 77.2 FL (80.0-100.0); MEAN CORPUSCULAR HEMOGLOBIN 23.5 PG (27.0-34.0); MEAN CORPUSCULAR HGB CONC 30.4 % (32.0-36.0); MONO % 5.3 % (0.0-8.0); NEUT % 70.5 % (16.0-70.0); PLATELET COUNT 396 TH/MM3 (150-450); RED BLOOD COUNT 4.09 MIL/MM3 (4.50-5.90); RED CELL DISTRIBUTION WIDTH 18.7 % (11.6-17.2); WHITE BLOOD COUNT 14.1 TH/MM3 (4.0-11.0)
[2017-06-20] VITALS (22 sets, daily range): BP systolic 110–159; BP diastolic 65–76; PULSE 72–110; RESP 18–20; TEMP 97.1–97.9; O2SAT 93–99
[2017-06-20 00:12] LABS: BICARBONATE 29.7 MEQ/L (21.0-32.0); POTASSIUM 3.8 MEQ/L (3.5-5.1)
[2017-06-20] MEDS ORDERED: SODIUM CHLOR 0.9% 1000 ML INJ 1,000 ML IV ONE (00:30)
[2017-06-20] MEDS ORDERED: PIPERACIL-TAZO 3.375 GM PREMIX 50 ML IV ONE (00:30)
[2017-06-20] MEDS ORDERED: VANCOMYCIN INJ 2,250 MG in SODIUM CHLORID 0.9% 500 ML INJ 500 ML IV ONE (00:30)
[2017-06-20] MEDS ORDERED: MORPHINE SULFATE 2 MG/ML INJ IV PUSH ONE (01:15)
[2017-06-20] MEDS ORDERED: Vancomycin Consult Pharmacy 1 EA OTHER SCH (01:30)
[2017-06-20] MEDS ORDERED: NALOXONE HCL 0.4 MG/ML AMP IV PUSH PRN (01:30)
[2017-06-20] MEDS ORDERED: SODIUM CHLORIDE 0.9% FLUSH 10 ML FLUSH IV FLUSH PRN (01:30)
--- NOTE | 2017-06-20 03:39 | HHI.HP ---
[facility] Admission Diagnosis Cellulitis Diagnoses: (1) Cellulitis of right leg (2) Venous stasis dermatitis of right lower extremity Chief Complaint: Wound on right coates worsening Travel History International Travel<30 Days: No Contact w/Intl Traveler <30 Da: No Traveled to Known Affected Are: No History of Present Illness Written by Julissa Fernandes, acting as scribe for Dr. Ruiz on 06/20/17 at 03:39. "That black spot is starting to eat into the skin" Treated with Dalvance in ED 2 weeks ago Not taking any antibiotics currently. Progressively worsening right coates pain accompanied by nausea not relieved with Morphine 2 mg IV The patient states that he is concerned that he will lose right leg and he does not want to Denies chest pain, shortness of breath, dizziness, or vomiting Review of Systems Except as stated in HPI: all other systems reviewed are Neg Past Family Social History Past Medical History Diabetes Mellitus Chronic right leg lymphedema Recurrent cellulitis Recurrent DVTs Hyperlipidemia Atrial fibrillation Cardiomyopathy Congestive heart failure Coronary artery disease Multiple CVAs and TIAs Endocarditis Hypertension COPD Migraines Essential tremors Osteoarthritis Degenerative disc disease Denies PVD, seizures, thyroid problems, cancers . Past Surgical History Right subclavian port placement Left leg amputation Brain surgery with aneurysm clipping Fibrous tumor removed from back Knee surgery Elbow surgery Tonsillectomy Appendectomy . Reported Medications Reported Meds & Active Scripts Active Lasix (Furosemide) 20 Mg Tab 20 Mg PO DAILY Oxygen (O2) Device Liter TI.CANULA CONTINUOUS Oxygen Concentrator Portable Gaseous 2 L/min via Nasal Canula Continuous For 99 months Nystatin Topical 100,000 unit/gm Oint 1 Applic TOPICAL Q12HR Reported Warfarin 5 Mg Tab 5 Mg PO DAILY Lyrica (Pregabalin) 100 Mg Cap 100 Mg PO TID Glipizide 10 Mg Tab 20 Mg PO BID Take 30 minutes before a meal Venlafaxine ER 24 HR (Venlafaxine HCl) 150 Mg Tab 300 Mg PO DAILY Diltiazem CD 24 HR 240 Mg Caper 240 Mg PO DAILY Potassium Chloride ER (Potassium Chloride) 10 Meq Cap 10 Meq PO DAILY Primidone 50 Mg Tab 50 Mg PO TID Pravastatin 20 Mg Tab 20 Mg PO HS Metformin (Metformin HCl) 500 Mg Tab 1,000 Mg PO DAILY IN THE PM Spironolactone 25 Mg Tab 25 Mg PO DAILY Gabapentin 100 Mg Cap 100 Mg PO Q6HR Baclofen 10 Mg Tab 10 Mg PO TID . Allergies: Coded Allergies: MRI PRECAUTION (Verified Allergy, Severe, ANEURSYM CLIPPING, 06/19/17) diatrizoate meglumine (Unverified Allergy, Severe, SHOCK, 06/19/17) gadobenic acid (Unverified Allergy, Severe, SHOCK, 06/19/17) gadodiamide (Unverified Allergy, Severe, SHOCK, 06/19/17) gadoteridol (Unverified Allergy, Severe, SHOCK, 06/19/17) iodine (Unverified Allergy, Severe, 06/19/17) iodixanol (Unverified Allergy, Severe, SHOCK, 06/19/17) iohexol (Unverified Allergy, Severe, SHOCK, 06/19/17) potassium iodide (Unverified Allergy, Severe, 06/19/17) povidone-iodine (Unverified Allergy, Severe, 06/19/17) sodium iodide (Unverified Allergy, Severe, 06/19/17) sodium iodide (Unverified Allergy, Severe, 06/19/17) Active Ordered Medications Current Medications Ondansetron HCl (Zofran Inj) 4 mg ONCE ONCE IVP Last administered on 23:57; Start 06/19/17 at 23:15; Stop 06/19/17 at 23:16; Status DC Sodium Chloride 1,000 ml @ 1,000 mls/hr Q1H IV Last administered on 06/19/17 23:56; Start 06/19/17 at 23:04; Stop 06/20/17 at 00:03; Status DC Sodium Chloride (NS Flush) 2 ml UNSCH PRN IV FLUSH FLUSH AFTER USING IV ACCESS ; Start 06/19/17 at 23:15; Stop 06/20/17 at 01:27; Status DC Sodium Chloride 1,000 ml @ 999 mls/hr BOLUS ONCE IV Last administered on 06/20 01:03; Start 06/20/17 at 00:30; Stop 06/20/17 at 01:30; Status DC Vancomycin HCl 2250 mg/Sodium Chloride 522.5 ml @ 250 mls/hr ONCE ONCE IV Last administered on 06/20/17 01:54; Start 06/20/17 at 00:30; Stop 06/20/17 at 02:35; Status DC Piperacillin Sod/ Tazobactam Sod 50 ml @ 100 mls/hr ONCE ONCE IV Last administered on 06/20/17 01:03; Start 06/20/17 at 00:30; Stop 06/20/17 at 00:59 ; Status DC Morphine Sulfate (Morphine Inj) 2 mg ONCE ONCE IV PUSH Last administered on 01:28; Start 06/20/17 at 01:15; Stop 06/20/17 at 01:16; Status DC Sodium Chloride (NS Flush) 2 ml UNSCH PRN IV FLUSH FLUSH AFTER USING IV ACCESS ; Start 06/20/17 at 01:30 Sodium Chloride (NS Flush) 2 ml BID IV FLUSH ; Start 06/20/17 at 09:00 Naloxone HCl (Narcan Inj) 0.4 mg UNSCH PRN IV PUSH SEE LABEL COMMENTS; Start 06/20/17 at 01:30 Pharmacy Profile Note 0 ml @ 0 mls/hr UNSCH OTHER ; Start 06/20/17 at 01:30 Piperacillin Sod/ Tazobactam Sod 100 ml @ 200 mls/hr Q6H IV ; Start 06/20/17 at 08:00 . Family History Patient is adopted and does not know family history from ; his son has had multiple aneurysms treated by Dr. Sepulveda . Social History Tobacco: Smokes 4 cigarettes per day Alcohol: denies Illicit Drugs: denies . Physical Exam Vital Signs Vital Signs Date Time Temp Pulse Resp B/P (MAP) Pulse Ox O2 Delivery O2 Flow Rate FiO2 06/20/17 01:55 18 06/20/17 00:07 99 18 158/72 (100) 99 Nasal Cannula 3.00 06/19/17 23:37 18 06/19/17 22:20 98.1 112 16 152/65 (94) 96 Room Air Physical Exam GENERAL: This is an obese older male patient, in no apparent distress. SKIN: No rashes. Cool and dry. Right coates with wound draining clear, warm and red surrounding skin. Right leg with elephantiasis. HEAD: Atraumatic. Normocephalic. EYES: No scleral icterus. No injection or drainage. ENT: Nose without bleeding, purulent drainage. Airway patent. NECK: Trachea midline. No JVD. CARDIOVASCULAR: Regular rate and rhythm without murmurs, gallops, or rubs. Left AKA. RESPIRATORY: Clear to auscultation. Breath sounds equal bilaterally. No wheezes , rales, or rhonchi. GASTROINTESTINAL: Abdomen soft, non-tender, nondistended. No hepato-splenomegaly , or palpable masses. No guarding. MUSCULOSKELETAL: Extremities without clubbing, cyanosis. Right leg with elephantiasis. NEUROLOGICAL: Awake and alert. Motor and sensory grossly within normal limits. Normal speech. . Laboratory Laboratory Tests Test 06/19/17 23:35 White Blood Count 14.1 Red Blood Count 4.09 Hemoglobin 9.6 Hematocrit 31.6 Mean Corpuscular Volume 77.2 Mean Corpuscular Hemoglobin 23.5 Mean Corpuscular Hemoglobin Concent 30.4 Red Cell Distribution Width 18.7 Platelet Count 396 Mean Platelet Volume 7.6 Neutrophils (%) (Auto) 70.5 Lymphocytes (%) (Auto) 19.4 Monocytes (%) (Auto) 5.3 Eosinophils (%) (Auto) 3.5 Basophils (%) (Auto) 1.3 Neutrophils # (Auto) 9.9 Lymphocytes # (Auto) 2.7 Monocytes # (Auto) 0.7 Eosinophils # (Auto) 0.5 Basophils # (Auto) 0.2 CBC Comment DIFF FINAL Differential Comment Blood Urea Nitrogen 12 Creatinine 1.02 Random Glucose 138 Calcium Level 8.6 Sodium Level 138 Potassium Level 3.8 Chloride Level 99 Carbon Dioxide Level 29.7 Anion Gap 9 Estimat Glomerular Filtration Rate 74 Lactic Acid Level 3.3 Date/Time Source Procedure Growth Status 06/19/17 23:35 Blood Peripheral Aerobic Blood Culture Pending Received 06/19/17 23:35 Blood Peripheral Anaerobic Blood Culture Pending Received Result Diagram: 06/19/175 06/19/172334 Caprini VTE Risk Assessment Caprini VTE Risk Assessment: Mod/High Risk (score >= 2) Caprini Risk Assessment Model Point Value = 1 Point Value = 2 Point Value = 3 Point Value = 5 Age 41-60 Minor surgery BMI > 25 kg/m2 Swollen legs Varicose veins or History of unexplained or recurrent spontaneous Oral contraceptives or hormone replacement Sepsis (< 1 month) Serious lung disease, including pneumonia (< 1 month) Abnormal pulmonary function Acute myocardial infarction Congestive heart failure (< 1 month) History of inflammatory bowel disease Medical patient at bed rest Age 61-74 Arthroscopic surgery Major open surgery (> 45 min) Laparoscopic surgery (> 45 min) Malignancy Confined to bed (> 72 hours) Immobilizing plaster cast Central venous access Age >= 75 History of VTE Family history of VTE Factor V Leiden Prothrombin [id number] Lupus anticoagulant Anticardiolipin antibodies Elevated serum homocysteine Heparin-induced thrombocytopenia Other congenital or acquired thrombophilia Stroke (< 1 month) Elective arthroplasty Hip, pelvis, or leg fracture Acute spinal cord injury (< 1 month) Prophylaxis Regimen Total Risk Factor Score Risk Level Prophylaxis Regimen 0-1 Low Early ambulation 2 Moderate Order ONE of the following: *Sequential Compression Device (SCD) *Heparin 5000 units SQ BID 3-4 Higher Order ONE of the following medications: *Heparin 5000 units SQ TID *Enoxaparin/Lovenox 40 mg SQ daily (WT < 150 kg, CrCl > 30 mL/min) *Enoxaparin/Lovenox 30 mg SQ daily (WT < 150 kg, CrCl > 10-29 mL/min) *Enoxaparin/Lovenox 30 mg SQ BID (WT < 150 kg, CrCl > 30 mL/min) AND/OR *Sequential Compression Device (SCD) 5 or more Highest Order ONE of the following medications: *Heparin 5000 units SQ TID (Preferred with Epidurals) *Enoxaparin/Lovenox 40 mg SQ daily (WT < 150 kg, CrCl > 30 mL/min) *Enoxaparin/Lovenox 30 mg SQ daily (WT < 150 kg, CrCl > 10-29 mL/min) *Enoxaparin/Lovenox 30 mg SQ BID (WT < 150 kg, CrCl > 30 mL/min) AND *Sequential Compression Device (SCD) Assessment and Plan Problem List: (1) Cellulitis of right leg ICD Code: L03.115 - Cellulitis of right lower limb Status: Acute (2) Venous stasis dermatitis of right lower extremity ICD Code: I87.2 - Venous stasis dermatitis of right lower extremity Status: Acute (3) Type 2 diabetes mellitus ICD Code: E11.9 - Type 2 diabetes mellitus without complications Status: Chronic (4) History of DVT (deep vein thrombosis) ICD Code: Z86.718 - History of DVT (deep vein thrombosis) Status: Chronic (5) Coronary artery disease ICD Code: I25.10 - Coronary artery disease Status: Chronic (6) COPD (chronic obstructive pulmonary disease) ICD Code: J44.9 - Chronic obstructive pulmonary disease, unspecified Status: Chronic (7) Atrial fibrillation ICD Code: I48.91 - Atrial fibrillation Status: Chronic (8) Seizure disorder ICD Code: G40.909 - Seizure disorder Status: Chronic (9) Hyperlipidemia ICD Code: E78.5 - Hyperlipidemia, unspecified Status: Chronic Assessment and Plan 62 y/o male with progressively worsening right coates ulceration despite outpatient Dalvance therapy: Cellulitis Right lower extremity, failed outpatient Dalvance Lactic acidosis - 05/29/17 wound culture + for MRSA, pseudomonas (not sensitive to Vancomycin), and group b beta strep - Antibiotics: Vancomycin with pharmacy consult for therapeutic monitoring and dosing and Zosyn 4.5 gm q6h IV - Lactic Acid 3.3, WBC 14.1 with neutrophilia - repeat labs and continue to monitor - consult infectious disease - appreciate assistance - blood cultures pending - consult wound care nurse for assistance - Dilaudid 0.5 mg IV q4h Nausea secondary to pain - Zofran 4 mg IV q6h PRN n/v - Phenergan 12.5 mg IM q4h PRN n/v History of DVT - Continue warfarin with pharmacy consult for therapeutic dosing and monitoring Coronary artery disease - Continue home statin - Heart healthy diet - Continuous cardiac telemetry to monitor heart rate and any dysrhythmias COPD - Duo nebulizers every 4 hours when necessary shortness of breath/wheezing - Monitor oxygen saturations and provide supplemental oxygen if necessary Type 2 diabetes mellitus - Hold home metformin - Accu-Cheks before meals and at bedtime with medium dose NovoLog sliding scale coverage - Monitor blood glucose trends and adjust medications as indicated - Hypoglycemia protocol - ADA diet- 1800 kcal Atrial fibrillation - Continue Coumadin per pharmacy recommendations - Continue home Cardizem Seizure disorder - Continue home primidone Hyperlipidemia - Continue home pravastatin DVT prophylaxis - Coumadin per pharmacy for therapeutic monitoring and dosing This note was transcribed by saji [Julissa Fernandes]. I, Dr. Sofi Ruiz personally performed the history, physical exam, and medical decision making; and confirmed the accuracy of the information in the transcribed note. Authenticated by Dr. Sofi Ruiz on 06/20/17 at 03:39. Discussed Condition With Patient and ER physician . Physician Certification 2 Midnight Certification Type: Admission for Inpatient Services Order for Inpatient Services The services are ordered in accordance with Medicare regulations or non- Medicare payer requirements, as applicable. In the case of services not specified as inpatient-only, they are appropriately provided as inpatient services in accordance with the 2-midnight benchmark. Estimated LOS (days): 3 days is the estimated time the patient will need to remain in the hospital, assuming treatment plan goals are met and no additional complications. Post-Hospital Plan: Not yet determined Julissa Fernandes Jun 20, 2017 03:39 Sofi Ruiz MD Jun 26, 2017 03:52
[2017-06-20] MEDS ORDERED: PROMETHAZINE INJ 25 MG/ML VIAL IM PRN (04:00)
[2017-06-20] MEDS: ONDANSETRON HCL 4 MG/2 ML VIAL IV PUSH PRN ×2 (04:18→17:03)
[2017-06-20] MEDS ORDERED: GLUCAGON 1 MG/ML VIAL OTHER PRN (04:45)
[2017-06-20] MEDS ORDERED: RESP: ALBUTEROL 2.5 MG/IPRATROPIUM 0.5 MG NEB (PRN) NEB (04:45)
[2017-06-20] MEDS ORDERED: DEXTROSE 50% IN WATER 50 ML VIAL(D50) IV PUSH PRN (04:45)
[2017-06-20] MEDS ORDERED: DO NOT ADM ANY ANTICOAGULANT DRUGS OTHER PRN (04:45)
[2017-06-20] MEDS: HYDROmorphone HCL PF 1 MG/ML VIAL IV PUSH PRN ×4 (05:25→21:00)
[2017-06-20] MEDS: GABAPENTIN 100 MG CAP PO SCH ×3 (05:27→17:03)
[2017-06-20] MEDS ORDERED: WARFARIN SOD 5 MG TAB PO SCH (09:00)
[2017-06-20] MEDS: PIPERACIL-TAZO 4.5 GM PREMIX 100 ML IV SCH ×4 (09:00→20:56)
[2017-06-20] MEDS: PREGABALIN 100 MG CAP PO SCH ×3 (09:30→17:37)
[2017-06-20] MEDS: PRIMIDONE 50 MG TAB PO SCH ×3 (09:30→17:03)
[2017-06-20] MEDS: INSULIN ASPART SUPPLEMENTAL SCALE SQ SCH ×4 (09:49→20:58)
[2017-06-20] MEDS: SPIRONOLACTONE 25 MG TAB PO SCH (09:51)
[2017-06-20] MEDS: SODIUM CHLORIDE 0.9% FLUSH 10 ML FLUSH IV FLUSH SCH ×2 (09:51→20:58)
[2017-06-20] MEDS: FUROSEMIDE 20 MG TAB PO SCH (09:51)
[2017-06-20] MEDS: POTASSIUM CHLORIDE 10 MEQ CAP PO SCH (09:51)
[2017-06-20] MEDS: glipiZIDE 10 MG TAB PO SCH ×2 (09:52→17:37)
[2017-06-20] MEDS: DILTIAZEM-CD 240 MG CAP ER PO SCH (09:52)
[2017-06-20] MEDS: VENLAFAXINE HCL XR 75 MG CAP PO SCH (13:44)
[2017-06-20] MEDS ORDERED: GADODIAMIDE PF 287 MG/ML 20 ML VIAL (for RAD MRI) IVCONTRAST ONE (13:57)
--- NOTE | 2017-06-20 14:32 | RADRPT ---
EXAM DATE/TIME: 06/20/2017 12:42 [place] COMPARISON: CHEST SINGLE AP, May 04, 2017, 7:05. INDICATIONS : Patient has nonfuctioning right infusaport. MEDICAL HISTORY : 1. DM 2. recurrent cellulitis 3. chronic right leg lymphedema 4. recurrant DVTs 5. Hyperlipidemia 6. A fib 7. cardiomyopathy 8. CHF 9. COPD 10 CAD 11. CVA and TIAs SURGICAL HISTORY : 1. rt subclavian port placement 2. Lt leg amputation 3. brain anuerysm clipping 4. Knee surgery 5. elbow surgery 6. tonsillectomy 7. Appy ENCOUNTER: Initial ACUITY: 1 day PAIN SCORE: 6/10 LOCATION: Right foot FLUORO TIME: 2.2 minutes IMAGE SERIES: 3 CONTRAST: 10 cc Omniscan (gadodiamide) ACCESS: Right subclavian vein infusaport PROCEDURE : 1. Access of [id number]. 2. Port patency injection. The risks, benefits and alternatives to the procedure were explained and verbal and written consent w as obtained. The patient was placed supine. The port was prepped in sterile fashion. Full sterile t echnique was used, including cap, mask, sterile gloves and gown, and a large sterile sheet. Hand hyg iene and 2% chlorhexidine prep was utilized per protocol for cutaneous antisepsis with appropriate dr y time for site. The previously placed port was accessed and positive contrast was injected for evaluation. Injection demonstrates apparent flow of contrast around the proximal aspect of the port catheter tubing in the region of the subcutaneous tract with accumulation in the soft tissues of the low right neck. We do not witnessed any contrast flowing through the catheter lumen into the central venous system. CONCLUSION: I do not clearly see a disruption of the port catheter, however contrast spills into the subcutaneous tract around the proximal catheter tubing and into the tissues of the low neck. There may be a disco nnection or disruption at the tubing/reservoir interface. The port will need to be replaced. Jorge Alberto Guzman MD on June 20, 2017 at 14:27 Board Certified Radiologist. This report was verified electronically.
--- NOTE | 2017-06-20 16:44 | PD.ID.CON ---
History of Present Illness Service ID Consult Requested By NATALIE Garduno Reason for Consult cellulitis, o/p tx failure Primary Care Physician [facility] Diagnoses: History of Present Illness 62 yo morbidly obese male known to me from previous admission He has multiple med problems including DM, tobaccoism and sp L AKA 2/2 diabetes complications He presented 2 weeks ago with RLE cellulits in the settings of chronic lymphedema and was Rx'd with Dalvancin He stated that his smx (redness, swelling ) did not improve and he also developped more ulcerations on his R coates Clx obained during previous visit + MRSA, GAS and PSAE No fever, bu leukocytosis of 14 K and lactic acidemia of 3.5 Review of Systems Except as stated in HPI: all other systems reviewed are Neg Past Family Social History Allergies: Coded Allergies: MRI PRECAUTION (Verified Allergy, Severe, ANEURSYM CLIPPING, 06/19/17) diatrizoate meglumine (Unverified Allergy, Severe, SHOCK, 06/19/17) gadobenic acid (Unverified Allergy, Severe, SHOCK, 06/19/17) gadodiamide (Unverified Allergy, Severe, SHOCK, 06/19/17) gadoteridol (Unverified Allergy, Severe, SHOCK, 06/19/17) iodine (Unverified Allergy, Severe, 06/19/17) iodixanol (Unverified Allergy, Severe, SHOCK, 06/19/17) iohexol (Unverified Allergy, Severe, SHOCK, 06/19/17) potassium iodide (Unverified Allergy, Severe, 06/19/17) povidone-iodine (Unverified Allergy, Severe, 06/19/17) sodium iodide (Unverified Allergy, Severe, 06/19/17) sodium iodide (Unverified Allergy, Severe, 06/19/17) Past Medical History Diabetes Mellitus Chronic right leg lymphedema Recurrent cellulitis Recurrent DVTs Hyperlipidemia Atrial fibrillation Cardiomyopathy Congestive heart failure Coronary artery disease Multiple CVAs and TIAs Endocarditis Hypertension COPD Migraines Essential tremors Osteoarthritis Degenerative disc disease . Past Surgical History Right subclavian port placement Left leg amputation Brain surgery with aneurysm clipping Fibrous tumor removed from back Knee surgery Elbow surgery Tonsillectomy Appendectomy Active Ordered Medications Medications where reviewed in EMR Antibiotics Include: vancomycin zosyn Family History Patient is adopted and does not know family history from ancestors ; his son has had multiple aneurysms Social History Tobacco: Smokes 4 cigarettes per day Alcohol: denies Illicit Drugs: denies . Physical Exam Vital Signs Vital Signs Date Time Temp Pulse Resp B/P (MAP) Pulse Ox O2 Delivery O2 Flow Rate FiO2 06/20/17 14:07 88 06/20/17 12:00 100 06/20/17 11:15 98 18 143/76 (98) 97 06/20/17 11:08 96 06/20/17 10:00 92 06/20/17 09:00 110 06/20/17 08:45 97.1 93 20 159/74 (102) 93 06/20/17 08:40 96 06/20/17 07:57 06/20/17 06:11 93 18 135/67 (89) 98 Nasal Cannula 3.00 06/20/17 05:55 18 06/20/17 05:29 96 Nasal Cannula 3.00 06/20/17 03:45 97 18 142/66 (91) 98 Nasal Cannula 3.00 06/20/17 01:55 18 06/20/17 00:07 99 18 158/72 (100) 99 Nasal Cannula 3.00 06/19/17 23:37 18 06/19/17 22:20 98.1 112 16 152/65 (94) 96 Room Air Physical Exam CONSTITUTIONAL/GENERAL: This is a morbidly obese male, in no apparent distress. TUBES/LINES/DRAINS: PORT in place R chest SKIN: No jaundice, rashes, or lesions. Skin temperature appropriate. Not diaphoretic. HEAD: Atraumatic. Normocephalic. EYES: Pupils equal and round and reactive. Extraocular motions intact. No scleral icterus. No injection or drainage. Fundi not examined. ENT: Hearing grossly normal. Nose without bleeding or purulent drainage. oral mucosae without visible erythema, exudates, masses, or lesions. NECK: Trachea midline. Supple, nontender. No palpable thyroid enlargement or nodularity. CARDIOVASCULAR: Regular rate and rhythm without murmurs, gallops, or rubs. No JVD. Peripheral pulses symmetric. RESPIRATORY/CHEST: Symmetric, unlabored respirations. Clear to auscultation. Breath sounds equal bilaterally. No wheezes, rales, or rhonchi. GASTROINTESTINAL: Abdomen soft, non-tender, nondistended. No hepato-splenomegaly , or palpable masses. No guarding. Bowel sounds present. MUSCULOSKELETAL: Extremities without clubbing, cyanosis, Sp LLE AKA. RLE is with edema 3+, erythema involving coates, hoda to alpation, 2 superficial partial tickness clean ulcers on the coates No joint tenderness or effusion noted. No calf tenderness. No mottling or clubbing. LYMPHATICS: No palpable cervical or supraclavicular adenopathy. NEUROLOGICAL: Awake and alert. Motor and sensory grossly within normal limits. Follows commands. Clear speech. Moves all extremities. PSYCHIATRIC: No obvious anxiety/depression. no apparent hallucinations or other psychotic thought process. Laboratory Laboratory Tests Test 06/19/17 23:35 06/20/17 05:45 White Blood Count 14.1 Red Blood Count 4.09 Hemoglobin 9.6 Hematocrit 31.6 Mean Corpuscular Volume 77.2 Mean Corpuscular Hemoglobin 23.5 Mean Corpuscular Hemoglobin Concent 30.4 Red Cell Distribution Width 18.7 Platelet Count 396 Mean Platelet Volume 7.6 Neutrophils (%) (Auto) 70.5 Lymphocytes (%) (Auto) 19.4 Monocytes (%) (Auto) 5.3 Eosinophils (%) (Auto) 3.5 Basophils (%) (Auto) 1.3 Neutrophils # (Auto) 9.9 Lymphocytes # (Auto) 2.7 Monocytes # (Auto) 0.7 Eosinophils # (Auto) 0.5 Basophils # (Auto) 0.2 CBC Comment DIFF FINAL Differential Comment Blood Urea Nitrogen 12 Creatinine 1.02 Random Glucose 138 Calcium Level 8.6 Sodium Level 138 Potassium Level 3.8 Chloride Level 99 Carbon Dioxide Level 29.7 Anion Gap 9 Estimat Glomerular Filtration Rate 74 Lactic Acid Level 3.3 1.2 Date/Time Source Procedure Growth Status 06/19/17 23:35 Blood Peripheral Aerobic Blood Culture - Preliminary NO GROWTH IN 1 DAY Resulted 06/19/17 23:35 Blood Peripheral Anaerobic Blood Culture - Preliminary NO GROWTH IN 1 DAY Resulted Result Diagram: 06/19/17 2335 06/19/17 2335 Imaging Last Impressions Venous Access Device Injection 06/20/17 0000 Signed Impressions: Service Date/Time: June 12:42 - CONCLUSION: I do not clearly see a disruption of the port catheter, however contrast spills into the subcutaneous tract around the proximal catheter tubing and into the tissues of the low neck. There may be a disconnection or disruption at the tubing/ reservoir interface. The port will need to be replaced. Jorge Alberto Guzman MD Assessment and Plan Assessment and Plan CHronic venostasis RLE cellulits sp Dalvancin, failed - cont vancomycin CONT zosyn rechk clx keep RLE elevated anticipate transition to oral abx prior to dc Discussed Condition With RN pt Lavonne Robins MD Jun 20, 2017 16:44
[2017-06-20] MEDS: VANCOMYCIN INJ 1,500 MG in SODIUM CHLORID 0.9% 500 ML INJ 500 ML IV SCH (17:04)
--- NOTE | 2017-06-20 19:09 | HHI.PR ---
Addendum to Inpatient Note Additional Information Pt was seen around 1700 full note to follow Lavonne Robins MD Jun 20, 2017 19:09
[2017-06-20] MEDS: PRAVASTATIN SOD 20 MG TAB PO SCH (20:58)
[2017-06-21] VITALS (25 sets, daily range): BP systolic 128–152; BP diastolic 65–76; PULSE 76–100; TEMP 97.7–98.7; O2SAT 92–98
[2017-06-21] MEDS: GABAPENTIN 100 MG CAP PO SCH ×4 (00:36→18:46)
[2017-06-21] MEDS: HYDROmorphone HCL PF 1 MG/ML VIAL IV PUSH PRN ×3 (00:36→09:50)
[2017-06-21] MEDS: PIPERACIL-TAZO 4.5 GM PREMIX 100 ML IV SCH ×4 (03:51→20:40)
[2017-06-21] MEDS: VANCOMYCIN INJ 1,500 MG in SODIUM CHLORID 0.9% 500 ML INJ 500 ML IV SCH ×2 (03:51→13:25)
[2017-06-21] MEDS: INSULIN ASPART SUPPLEMENTAL SCALE SQ SCH ×4 (08:00→20:40)
[2017-06-21] MEDS: POTASSIUM CHLORIDE 10 MEQ CAP PO SCH (09:39)
[2017-06-21] MEDS: DILTIAZEM-CD 240 MG CAP ER PO SCH (09:39)
[2017-06-21] MEDS: SPIRONOLACTONE 25 MG TAB PO SCH (09:39)
[2017-06-21] MEDS: VENLAFAXINE HCL XR 75 MG CAP PO SCH (09:39)
[2017-06-21] MEDS: PREGABALIN 100 MG CAP PO SCH ×3 (09:39→18:46)
[2017-06-21] MEDS: PRIMIDONE 50 MG TAB PO SCH ×3 (09:39→18:46)
[2017-06-21] MEDS: SODIUM CHLORIDE 0.9% FLUSH 10 ML FLUSH IV FLUSH SCH ×2 (09:40→20:41)
[2017-06-21] MEDS: glipiZIDE 10 MG TAB PO SCH ×2 (10:14→18:46)
[2017-06-21] MEDS: FUROSEMIDE 20 MG TAB PO SCH (10:15)
--- NOTE | 2017-06-21 12:01 | PD.WCN.NOT ---
Wound Consult Description: Received consult for wound management of RLE Communicated with: ARCHANA Skelton [facility] and Call placed to Doctor Sayess Recommendation: Please cleanse wound to R coates with wound cleanser. Apply optifoam AG gentle over wound bed. May cut foam to fit over wound bed. Secure dressing with rolled gauze and tape. Change dressing daily or PRN if saturated or dislodged. Additional Information: Patient seen on [facility] for evaluation of RLE wound management. Patient assessed with Rachel ivory CRN and physician underwriter. Removed adhesive foam dressing in place on R lower coates area to reveal scattered venous stasis ulcer measured as one wound. Entire area measures ~8cm x ~2cm x~0.3cm Wound appears to have minimal serous drainage without odor. Wound margins are poorly defined and uneven. Wound bed presents with ~50% pink tissue and ~50% yellow exudate. Periwound is noted with dry erythema. Entire R lower extremity presents with hard non pitting edema, dry, peeling and hyperkeratotic skin. Previous wound culture of Leg from 05/29 is positive for MRSA. Cleansed wound with normal saline and left open to air. ARCHANA Skelton to apply dressing as recommended above when supplies obtained [facility] Jun 21, 2017 12:01
--- NOTE | 2017-06-21 13:42 | HHI.PR ---
Subjective Remarks The patient said that his pain was not completely controlled. He said he requires his port for most things and would be willing to have it replaced. He does not want to work with physical therapy at this time secondary to pain. Discussed with nursing. Objective Vitals Vital Signs Date Time Temp Pulse Resp B/P (MAP) Pulse Ox O2 Delivery O2 Flow Rate FiO2 06/21/17 08:00 98.3 87 142/73 (96) 97 06/21/17 06:00 94 06/21/17 05:00 86 06/21/17 04:24 97.7 79 152/75 (100) 96 06/21/17 04:00 78 06/21/17 03:00 76 06/21/17 02:00 80 06/21/17 01:00 76 06/21/17 00:00 84 06/20/17 23:19 97.8 76 110/65 (80) 97 06/20/17 23:00 90 06/20/17 22:00 82 06/20/17 21:00 72 06/20/17 20:00 78 06/20/17 19:00 78 06/20/17 18:00 82 06/20/17 17:00 80 06/20/17 16:00 84 06/20/17 15:00 82 06/20/17 15:00 97.9 77 20 114/70 (85) 97 06/20/17 14:07 88 I/O 06/20/17 06/20/17 06/20/17 06/21/17 06/21/17 06/21/17 07:00 15:00 23:00 07:00 15:00 23:00 Intake Total 2050 ml 1420 ml 600 ml Output Total 625 ml 400 ml Balance 2050 ml 795 ml 200 ml Intake Oral 720 ml IV Total 2050 ml 700 ml 600 ml Output Urine Total 625 ml 400 ml # Bowel Movements 0 Result Diagram: 06/19/17 2335 06/19/17 2335 Imaging Last Impressions Venous Access Device Injection 06/20/17 0000 Signed Impressions: Service Date/Time: June 12:42 - CONCLUSION: I do not clearly see a disruption of the port catheter, however contrast spills into the subcutaneous tract around the proximal catheter tubing and into the tissues of the low neck. There may be a disconnection or disruption at the tubing/ reservoir interface. The port will need to be replaced. Jorge Alberto Guzman MD Objective Remarks GENERAL: This is an obese male patient, in no apparent distress. SKIN: Right coates with erythema and induration. Right leg with elephantiasis. HEAD: Atraumatic. Normocephalic. EYES: No scleral icterus. No injection or drainage. ENT: Nose without bleeding, purulent drainage. Airway patent. NECK: Trachea midline. No JVD. CARDIOVASCULAR: Regular rate and rhythm without murmurs, gallops, or rubs. Left AKA. RESPIRATORY: Clear to auscultation. Breath sounds equal bilaterally. No wheezes , rales, or rhonchi. GASTROINTESTINAL: Abdomen soft, non-tender, nondistended. No hepato-splenomegaly , or palpable masses. No guarding. MUSCULOSKELETAL: Extremities without clubbing, cyanosis. Right leg with elephantiasis. NEUROLOGICAL: Awake and alert. Motor and sensory grossly within normal limits. Normal speech. PSYCH: Slightly flattened affect. Medications and IVs Current Medications Medications (Trade) Dose Ordered Sig/Carrie Route Start Time Stop Time Status Last Admin (NS Flush) 2 ml UNSCH PRN IV FLUSH 06/20/17 01:30 (NS Flush) 2 ml BID IV FLUSH 06/20/17 09:00 06/21/17 09:40 (Narcan Inj) 0.4 mg UNSCH PRN IV PUSH 06/20/17 01:30 Pharmacy Profile Note 0 ml @ 0 mls/hr UNSCH OTHER 06/20/17 01:30 Piperacillin Sod/ Tazobactam Sod 100 ml @ 200 mls/hr Q6H IV 06/20/17 08:00 06/21/17 09:39 (Zofran Inj) 4 mg Q6HR PRN IV PUSH 06/20/17 04:00 06/20/17 17:03 (Phenergan Inj) 12.5 mg Q4H PRN IM 06/20/17 04:00 Pharmacy Profile Note 0 ml @ 0 mls/hr UNSCH OTHER 06/20/17 04:30 (Cardizem Cd) 240 mg DAILY PO 06/20/17 09:00 06/21/17 09:39 (Lasix) 20 mg DAILY PO 06/20/17 09:00 06/21/17 10:15 (Neurontin) 100 mg Q6HR PO 06/20/17 06:00 06/21/17 05:22 (Glucotrol) 20 mg DAILY@0800,1700 PO 06/20/17 09:00 06/21/17 10:14 (KCl) 10 meq DAILY PO 06/20/17 09:00 06/21/17 09:39 (Pravachol) 20 mg HS PO 06/20/17 21:00 06/20/17 20:58 (Lyrica) 100 mg TID PO 06/20/17 09:00 06/21/17 09:39 (Mysoline) 50 mg TID PO 06/20/17 09:00 06/21/17 09:39 (Aldactone) 25 mg DAILY PO 06/20/17 09:00 06/21/17 09:39 (Effexor Xr) 300 mg DAILY PO 06/20/17 09:00 06/21/17 09:39 (Coumadin) 5 mg DAILY@1600 PO 06/20/17 09:00 Future Hold (D50w (Vial) Inj) 50 ml UNSCH PRN IV PUSH 06/20/17 04:45 (Glucagon Inj) 1 mg UNSCH PRN OTHER 06/20/17 04:45 (NovoLOG SUPPLEMENTAL SCALE) 1 ACHS SLIDING SCALE SQ 06/20/17 08:00 06/20/17 17:37 (Duoneb Neb) 1 ampule Q4HR NEB PRN NEB 06/20/17 04:45 Vancomycin HCl 1500 mg/Sodium Chloride 515 ml @ 250 mls/hr Q12H IV 06/20/17 14:00 06/21/17 03:51 Miscellaneous Information SPECIFIC LAB TO BE DRAWN:VANCOMY... ONCE ONCE .XX 06/21/17 13:45 06/21/17 13:46 (Dilaudid Pf Inj) 1 mg Q4H PRN IV PUSH 06/21/17 12:00 (Albertina-Colace) 1 tab BID PO 06/21/17 11:00 (Roxicodone) 5 mg Q4H PRN PO 06/21/17 10:15 (Roxicodone) 10 mg Q4H PRN PO 06/21/17 10:15 06/21/17 10:15 A/P Problem List: (1) Cellulitis of right leg ICD Code: L03.115 - Cellulitis of right lower limb Status: Acute (2) Venous stasis dermatitis of right lower extremity ICD Code: I87.2 - Venous stasis dermatitis of right lower extremity Status: Acute (3) Type 2 diabetes mellitus ICD Code: E11.9 - Type 2 diabetes mellitus without complications Status: Chronic (4) History of DVT (deep vein thrombosis) ICD Code: Z86.718 - History of DVT (deep vein thrombosis) Status: Chronic (5) Coronary artery disease ICD Code: I25.10 - Coronary artery disease Status: Chronic (6) COPD (chronic obstructive pulmonary disease) ICD Code: J44.9 - Chronic obstructive pulmonary disease, unspecified Status: Chronic (7) Atrial fibrillation ICD Code: I48.91 - Atrial fibrillation Status: Chronic (8) Seizure disorder ICD Code: G40.909 - Seizure disorder Status: Chronic (9) Hyperlipidemia ICD Code: E78.5 - Hyperlipidemia, unspecified Status: Chronic Assessment and Plan 62 y/o male with progressively worsening right coates ulceration despite outpatient Dalvance therapy: Cellulitis Right lower extremity, failed outpatient Dalvance Lactic acidosis - 05/29/17 wound culture + for MRSA, pseudomonas (not sensitive to Vancomycin), and group b beta strep - Antibiotics: Vancomycin with pharmacy consult for therapeutic monitoring and dosing and Zosyn 4.5 gm q6h IV - Lactic Acid 3.3, WBC 14.1 with neutrophilia - repeat labs and continue to monitor. Resolved. - consulted infectious disease - appreciate assistance. - blood cultures pending - consulted wound care nurse for assistance. Appreciate recommendations. - Pain control with a bowel regimen. Nausea Secondary to pain. - Zofran 4 mg IV q6h PRN n/v - Phenergan 12.5 mg IM q4h PRN n/v History of DVT On Coumadin. - Continue warfarin with pharmacy consult for therapeutic dosing and monitoring Coronary artery disease No chest pain at this time. - Continue home statin - Heart healthy diet - Continuous cardiac telemetry to monitor heart rate and any dysrhythmias COPD Breathing is stable. - Duo nebulizers every 4 hours when necessary shortness of breath/wheezing - Monitor oxygen saturations and provide supplemental oxygen if necessary Type 2 diabetes mellitus - Hold home metformin - Accu-Cheks before meals and at bedtime with medium dose NovoLog sliding scale coverage - Monitor blood glucose trends and adjust medications as indicated - Hypoglycemia protocol - ADA diet- 1800 kcal Atrial fibrillation - Continue Coumadin per pharmacy recommendations - Continue home Cardizem Seizure disorder - Continue home primidone Malfunctioning port Status post study by interventional radiology. - Port will need to be replaced once cleared by infectious disease. DVT prophylaxis - Coumadin per pharmacy for therapeutic monitoring and dosing Forrest Sherman DO Jun 21, 2017 13:42
[2017-06-21] MEDS ORDERED: PHARMACY ORDERED LAB ONE (13:45)
[2017-06-21] MEDS: DOCUSATE SODIUM 50 MG/SENNA 8.6 MG TAB PO SCH ×2 (13:48→20:40)
[2017-06-21] MEDS ORDERED: PILL SPLITTER OTHER PRN (14:00)
[2017-06-21] MEDS ORDERED: Vancomycin Consult Pharmacy 1 EA IV SCH (15:15)
[2017-06-21 17:29] LABS: AUTOMATED NEUTROPHIL # 6.9 TH/MM3 (1.8-7.7); BASOPHIL # 0.1 TH/MM3 (0-0.2); BASOPHIL % 1.2 % (0.0-2.0); EOSINOPHIL # 0.5 TH/MM3 (0-0.4); EOSINOPHIL % 5.3 % (0.0-4.0); HEMATOCRIT 30.1 % (39.0-51.0); HEMO FLAGS DIFF FINAL; LYMPH % 18.5 % (9.0-44.0); LYMPHOCYTE # 1.9 TH/MM3 (1.0-4.8); MEAN CELL VOLUME 78.3 FL (80.0-100.0); MEAN CORPUSCULAR HEMOGLOBIN 23.8 PG (27.0-34.0); MEAN CORPUSCULAR HGB CONC 30.5 % (32.0-36.0); PLATELET COUNT 383 TH/MM3 (150-450); RED BLOOD COUNT 3.85 MIL/MM3 (4.50-5.90); RED CELL DISTRIBUTION WIDTH 18.5 % (11.6-17.2); WHITE BLOOD COUNT 10.2 TH/MM3 (4.0-11.0)
[2017-06-21 17:34] LABS: INTERNATIONAL NORMALIZED RATIO 1.4 RATIO; PROTHROMBIN TIME - PATIENT 16.2 SEC (9.8-11.6)
[2017-06-21 17:40] LABS: ANION GAP 4 MEQ/L (5-15); BICARBONATE 31.8 MEQ/L (21.0-32.0); BLOOD UREA NITROGEN 8 MG/DL (7-18); CHLORIDE 99 MEQ/L (98-107); GLOMERULAR FILTRATION RATE 112 ML/MIN (>89); POTASSIUM 4.2 MEQ/L (3.5-5.1); SODIUM (NA) 135 MEQ/L (136-145)
[2017-06-21 18:07] LABS: FERRITIN 32 NG/ML (26-388); TRANSFERRIN IRON PROFILE 214 MG/DL (200-360)
[2017-06-21] MEDS: PRAVASTATIN SOD 20 MG TAB PO SCH (20:40)
[2017-06-21] MEDS: WARFARIN SOD 5 MG TAB PO SCH (20:40)
[2017-06-22] VITALS (21 sets, daily range): BP systolic 114–160; BP diastolic 60–75; PULSE 64–92; RESP 16–18; TEMP 96.3–98.3; O2SAT 91–98
[2017-06-22] MEDS: GABAPENTIN 100 MG CAP PO SCH ×4 (01:14→17:02)
[2017-06-22] MEDS: VANCOMYCIN INJ 1,500 MG in SODIUM CHLORID 0.9% 500 ML INJ 500 ML IV SCH ×2 (03:09→14:00)
[2017-06-22] MEDS: PIPERACIL-TAZO 4.5 GM PREMIX 100 ML IV SCH ×4 (03:09→20:49)
[2017-06-22 05:26] LABS: AUTOMATED NEUTROPHIL # 8.9 TH/MM3 (1.8-7.7); BASOPHIL # 0.1 TH/MM3 (0-0.2); BASOPHIL % 0.9 % (0.0-2.0); EOSINOPHIL # 0.5 TH/MM3 (0-0.4); EOSINOPHIL % 4.2 % (0.0-4.0); HEMO FLAGS DIFF FINAL; LYMPH % 13.4 % (9.0-44.0); LYMPHOCYTE # 1.6 TH/MM3 (1.0-4.8); MEAN CELL VOLUME 79.9 FL (80.0-100.0); MONO % 6.9 % (0.0-8.0); NEUT % 74.6 % (16.0-70.0); PLATELET COUNT 341 TH/MM3 (150-450); RED BLOOD COUNT 4.01 MIL/MM3 (4.50-5.90); RED CELL DISTRIBUTION WIDTH 19.3 % (11.6-17.2); WHITE BLOOD COUNT 11.9 TH/MM3 (4.0-11.0)
[2017-06-22 05:33] LABS: INTERNATIONAL NORMALIZED RATIO 1.4 RATIO; PROTHROMBIN TIME - PATIENT 15.9 SEC (9.8-11.6)
[2017-06-22] MEDS: ONDANSETRON HCL 4 MG/2 ML VIAL IV PUSH PRN ×2 (06:13→11:02)
[2017-06-22] MEDS: INSULIN ASPART SUPPLEMENTAL SCALE SQ SCH ×4 (08:00→21:28)
[2017-06-22] MEDS: SODIUM CHLORIDE 0.9% FLUSH 10 ML FLUSH IV FLUSH SCH ×2 (09:00→20:48)
[2017-06-22] MEDS: SPIRONOLACTONE 25 MG TAB PO SCH (09:04)
[2017-06-22] MEDS: FUROSEMIDE 20 MG TAB PO SCH (09:05)
[2017-06-22] MEDS: POTASSIUM CHLORIDE 10 MEQ CAP PO SCH (09:05)
[2017-06-22] MEDS: VENLAFAXINE HCL XR 75 MG CAP PO SCH (09:06)
[2017-06-22] MEDS: DOCUSATE SODIUM 50 MG/SENNA 8.6 MG TAB PO SCH ×2 (09:15→20:48)
[2017-06-22] MEDS: PREGABALIN 100 MG CAP PO SCH ×3 (09:15→17:01)
[2017-06-22] MEDS: DILTIAZEM-CD 240 MG CAP ER PO SCH (09:15)
[2017-06-22] MEDS: PRIMIDONE 50 MG TAB PO SCH ×3 (09:15→17:01)
[2017-06-22] MEDS: glipiZIDE 10 MG TAB PO SCH ×2 (09:21→17:02)
--- NOTE | 2017-06-22 14:55 | HHI.PR ---
Subjective Remarks The patient was tired. He says his pain was not completely controlled. He had no other acute complaints. Discussed with nursing. Objective Vitals Vital Signs Date Time Temp Pulse Resp B/P (MAP) Pulse Ox O2 Delivery O2 Flow Rate FiO2 06/22/17 14:07 73 06/22/17 13:00 75 06/22/17 12:00 85 06/22/17 11:00 85 06/22/17 11:00 98.3 68 18 114/64 (81) 91 06/22/17 10:00 92 06/22/17 09:00 84 06/22/17 08:00 90 06/22/17 07:15 97.0 88 18 137/70 (92) 92 06/22/17 07:15 87 06/22/17 06:02 90 06/22/17 05:01 86 06/22/17 04:00 84 06/22/17 03:33 97.9 87 160/75 (103) 98 06/22/17 03:00 87 06/22/17 02:00 86 06/22/17 01:00 92 06/22/17 00:00 84 06/21/17 23:00 98.7 84 137/76 (96) 98 06/21/17 23:00 84 06/21/17 22:00 84 06/21/17 21:00 88 06/21/17 21:00 98.1 100 140/69 (92) 92 06/21/17 20:00 96 06/21/17 19:00 87 06/21/17 18:00 97 06/21/17 17:00 95 06/21/17 16:00 98.4 96 128/65 (86) 97 06/21/17 16:00 87 06/21/17 15:00 82 I/O 06/21/17 06/21/17 06/21/17 06/22/17 06/22/17 06/22/17 07:00 15:00 23:00 07:00 15:00 23:00 Intake Total 600 ml 1060 ml 880 ml 500 ml Output Total 400 ml 775 ml 600 ml Balance 200 ml 285 ml 280 ml 500 ml Intake Oral 960 ml 480 ml IV Total 600 ml 100 ml 400 ml 500 ml Output Urine Total 400 ml 775 ml 600 ml Result Diagram: 06/22/17 0452 06/21/17 1713 Imaging Last Impressions Venous Access Device Injection 06/20/17 0000 Signed Impressions: Service Date/Time: June 12:42 - CONCLUSION: I do not clearly see a disruption of the port catheter, however contrast spills into the subcutaneous tract around the proximal catheter tubing and into the tissues of the low neck. There may be a disconnection or disruption at the tubing/ reservoir interface. The port will need to be replaced. Jorge Alberto Guzman MD Objective Remarks GENERAL: This is an obese male patient, in no apparent distress, tired. SKIN: Right coates with erythema and induration. Right leg with elephantiasis. HEAD: Atraumatic. Normocephalic. EYES: No scleral icterus. No injection or drainage. ENT: Nose without bleeding, purulent drainage. Airway patent. NECK: Trachea midline. No JVD. CARDIOVASCULAR: Regular rate and rhythm without murmurs, gallops, or rubs. Left AKA. RESPIRATORY: Clear to auscultation. Breath sounds equal bilaterally. No wheezes , rales, or rhonchi. GASTROINTESTINAL: Abdomen soft, non-tender, nondistended. No hepato-splenomegaly , or palpable masses. No guarding. MUSCULOSKELETAL: Extremities without clubbing, cyanosis. Right leg with elephantiasis. NEUROLOGICAL: Awake and alert. Motor and sensory grossly within normal limits. Normal speech. PSYCH: Slightly flattened affect. Medications and IVs Current Medications Medications (Trade) Dose Ordered Sig/Carrie Route Start Time Stop Time Status Last Admin (NS Flush) 2 ml UNSCH PRN IV FLUSH 06/20/17 01:30 (NS Flush) 2 ml BID IV FLUSH 06/20/17 09:00 06/21/17 20:41 (Narcan Inj) 0.4 mg UNSCH PRN IV PUSH 06/20/17 01:30 Pharmacy Profile Note 0 ml @ 0 mls/hr UNSCH OTHER 06/20/17 01:30 Piperacillin Sod/ Tazobactam Sod 100 ml @ 200 mls/hr Q6H IV 06/20/17 08:00 06/22/17 13:15 (Zofran Inj) 4 mg Q6HR PRN IV PUSH 06/20/17 04:00 06/22/17 11:02 (Phenergan Inj) 12.5 mg Q4H PRN IM 06/20/17 04:00 Pharmacy Profile Note 0 ml @ 0 mls/hr UNSCH OTHER 06/20/17 04:30 (Cardizem Cd) 240 mg DAILY PO 06/20/17 09:00 06/22/17 09:15 (Lasix) 20 mg DAILY PO 06/20/17 09:00 06/22/17 09:05 (Neurontin) 100 mg Q6HR PO 06/20/17 06:00 06/22/17 11:02 (Glucotrol) 20 mg DAILY@0800,1700 PO 06/20/17 09:00 06/22/17 09:21 (KCl) 10 meq DAILY PO 06/20/17 09:00 06/22/17 09:05 (Pravachol) 20 mg HS PO 06/20/17 21:00 06/21/17 20:40 (Lyrica) 100 mg TID PO 06/20/17 09:00 06/22/17 12:40 (Mysoline) 50 mg TID PO 06/20/17 09:00 06/22/17 12:40 (Aldactone) 25 mg DAILY PO 06/20/17 09:00 06/22/17 09:04 (Effexor Xr) 300 mg DAILY PO 06/20/17 09:00 06/22/17 09:06 (D50w (Vial) Inj) 50 ml UNSCH PRN IV PUSH 06/20/17 04:45 (Glucagon Inj) 1 mg UNSCH PRN OTHER 06/20/17 04:45 (NovoLOG SUPPLEMENTAL SCALE) 1 ACHS SLIDING SCALE SQ 06/20/17 08:00 06/21/17 20:40 (Duoneb Neb) 1 ampule Q4HR NEB PRN NEB 06/20/17 04:45 Vancomycin HCl 1500 mg/Sodium Chloride 515 ml @ 250 mls/hr Q12H IV 06/20/17 14:00 06/22/17 14:00 (Dilaudid Pf Inj) 1 mg Q4H PRN IV PUSH 06/21/17 12:00 (Albertina-Colace) 1 tab BID PO 06/21/17 11:00 06/22/17 09:15 (Roxicodone) 5 mg Q4H PRN PO 06/21/17 10:15 06/22/17 09:05 (Roxicodone) 15 mg Q4H PRN PO 06/21/17 14:15 06/21/17 20:44 (Pill Splitter) 1 ea UNSCH PRN OTHER 06/21/17 14:00 (Coumadin) 5 mg DAILY@1600 PO 06/21/17 21:00 06/21/17 20:40 (Coumadin) 1 mg ONCE@1600 ONCE PO 06/22/17 16:00 06/22/17 16:01 Miscellaneous Information SPECIFIC LAB TO BE DRAWN:VANCO TROUGH DATE TO BE DR... ONCE ONCE .XX 06/23/17 01:45 06/23/17 01:46 A/P Problem List: (1) Cellulitis of right leg ICD Code: L03.115 - Cellulitis of right lower limb Status: Acute (2) Venous stasis dermatitis of right lower extremity ICD Code: I87.2 - Venous stasis dermatitis of right lower extremity Status: Acute (3) Type 2 diabetes mellitus ICD Code: E11.9 - Type 2 diabetes mellitus without complications Status: Chronic (4) History of DVT (deep vein thrombosis) ICD Code: Z86.718 - History of DVT (deep vein thrombosis) Status: Chronic (5) Coronary artery disease ICD Code: I25.10 - Coronary artery disease Status: Chronic (6) COPD (chronic obstructive pulmonary disease) ICD Code: J44.9 - Chronic obstructive pulmonary disease, unspecified Status: Chronic (7) Atrial fibrillation ICD Code: I48.91 - Atrial fibrillation Status: Chronic (8) Seizure disorder ICD Code: G40.909 - Seizure disorder Status: Chronic (9) Hyperlipidemia ICD Code: E78.5 - Hyperlipidemia, unspecified Status: Chronic Assessment and Plan 62 y/o male with progressively worsening right coates ulceration despite outpatient Dalvance therapy: Cellulitis Right lower extremity, failed outpatient Dalvance Lactic acidosis - 05/29/17 wound culture + for MRSA, pseudomonas (not sensitive to Vancomycin), and group b beta strep - Antibiotics: Vancomycin with pharmacy consult for therapeutic monitoring and dosing and Zosyn 4.5 gm q6h IV - Lactic Acid 3.3, WBC 14.1 with neutrophilia - repeat labs and continue to monitor. Resolved. - consulted infectious disease - appreciate assistance. - blood cultures pending - consulted wound care nurse for assistance. Appreciate recommendations. - Pain control with a bowel regimen. Nausea Secondary to pain. Seems resolved. - Zofran 4 mg IV q6h PRN n/v - Phenergan 12.5 mg IM q4h PRN n/v History of DVT On Coumadin. - Continue warfarin with pharmacy consult for therapeutic dosing and monitoring Coronary artery disease No chest pain at this time. - Continue home statin - Heart healthy diet - Continuous cardiac telemetry to monitor heart rate and any dysrhythmias COPD Breathing is stable. - Duo nebulizers every 4 hours when necessary shortness of breath/wheezing. - Monitor oxygen saturations and provide supplemental oxygen if necessary. - get a baseline CXR. Type 2 diabetes mellitus - Hold home metformin - Accu-Cheks before meals and at bedtime with medium dose NovoLog sliding scale coverage - Monitor blood glucose trends and adjust medications as indicated - Hypoglycemia protocol - ADA diet- 1800 kcal Atrial fibrillation Rate controlled. - Continue Coumadin per pharmacy recommendations - Continue home Cardizem Malfunctioning port Status post study by interventional radiology. - Port will need to be replaced once cleared by infectious disease. DVT prophylaxis - Coumadin per pharmacy for therapeutic monitoring and dosing Discharge Planning Awaiting clinical improvement Forrest Sherman DO Jun 22, 2017 14:55
[2017-06-22] MEDS: WARFARIN SOD 5 MG TAB PO SCH (15:16)
[2017-06-22] MEDS ORDERED: WARFARIN SOD 1 MG TAB PO ONE (16:00)
--- NOTE | 2017-06-22 16:43 | RADRPT ---
EXAM DATE/TIME: 06/22/2017 16:12 [facility] COMPARISON: CHEST SINGLE AP, May 04, 2017, 7:05. INDICATIONS : Short of breath. COPD. MEDICAL HISTORY : Chronic obstructive pulmonary disease. SURGICAL HISTORY : None. ENCOUNTER: Subsequent ACUITY: 3 days PAIN SCORE: 5/10 LOCATION: Bilateral chest FINDINGS: Right chest port is stable in good position. There is mild vascular congestion and interstitial promi nence. Borderline heart size with grossly stable mediastinal contours. CONCLUSION: Possible mild cardiac decompensation Jorge Alberto Guzman MD on June 22, 2017 at 16:41 Board Certified Radiologist. This report was verified electronically.
[2017-06-22] MEDS: PRAVASTATIN SOD 20 MG TAB PO SCH (20:48)
[2017-06-23] VITALS (9 sets, daily range): BP systolic 118–140; BP diastolic 59–77; PULSE 82–88; RESP 16–18; TEMP 95.9–97.8; O2SAT 90–93
[2017-06-23] MEDS: GABAPENTIN 100 MG CAP PO SCH ×5 (00:10→23:28)
[2017-06-23] MEDS ORDERED: PHARMACY ORDERED LAB ONE (01:45)
[2017-06-23] MEDS: PIPERACIL-TAZO 4.5 GM PREMIX 100 ML IV SCH ×4 (02:00→21:24)
[2017-06-23] MEDS: VANCOMYCIN INJ 1,500 MG in SODIUM CHLORID 0.9% 500 ML INJ 500 ML IV SCH (02:00)
[2017-06-23 05:08] LABS: INTERNATIONAL NORMALIZED RATIO 1.8 RATIO; PROTHROMBIN TIME - PATIENT 20.6 SEC (9.8-11.6)
[2017-06-23 05:28] LABS: AUTOMATED NEUTROPHIL # 7.6 TH/MM3 (1.8-7.7); BASOPHIL # 0.1 TH/MM3 (0-0.2); BASOPHIL % 1.3 % (0.0-2.0); EOSINOPHIL # 0.4 TH/MM3 (0-0.4); EOSINOPHIL % 3.9 % (0.0-4.0); HEMATOCRIT 28.3 % (39.0-51.0); HEMO FLAGS DIFF FINAL; LYMPH % 15.2 % (9.0-44.0); LYMPHOCYTE # 1.6 TH/MM3 (1.0-4.8); MEAN CELL VOLUME 78.3 FL (80.0-100.0); MEAN CORPUSCULAR HEMOGLOBIN 24.1 PG (27.0-34.0); MEAN CORPUSCULAR HGB CONC 30.7 % (32.0-36.0); MONO % 6.7 % (0.0-8.0); NEUT % 72.9 % (16.0-70.0); PLATELET COUNT 356 TH/MM3 (150-450); RED BLOOD COUNT 3.61 MIL/MM3 (4.50-5.90); RED CELL DISTRIBUTION WIDTH 18.5 % (11.6-17.2); WHITE BLOOD COUNT 10.4 TH/MM3 (4.0-11.0)
[2017-06-23] MEDS: INSULIN ASPART SUPPLEMENTAL SCALE SQ SCH ×4 (08:00→20:06)
[2017-06-23] MEDS: VENLAFAXINE HCL XR 75 MG CAP PO SCH (08:23)
[2017-06-23] MEDS: SODIUM CHLORIDE 0.9% FLUSH 10 ML FLUSH IV FLUSH SCH ×2 (08:23→20:03)
[2017-06-23] MEDS: PREGABALIN 100 MG CAP PO SCH ×3 (08:25→16:31)
[2017-06-23] MEDS: PRIMIDONE 50 MG TAB PO SCH ×3 (08:25→16:31)
[2017-06-23] MEDS: SPIRONOLACTONE 25 MG TAB PO SCH (08:25)
[2017-06-23] MEDS: DILTIAZEM-CD 240 MG CAP ER PO SCH (08:25)
[2017-06-23] MEDS: FUROSEMIDE 20 MG TAB PO SCH (08:25)
[2017-06-23] MEDS: POTASSIUM CHLORIDE 10 MEQ CAP PO SCH (08:25)
[2017-06-23] MEDS: DOCUSATE SODIUM 50 MG/SENNA 8.6 MG TAB PO SCH ×2 (08:27→20:03)
[2017-06-23] MEDS: glipiZIDE 10 MG TAB PO SCH ×2 (08:45→16:31)
--- NOTE | 2017-06-23 10:46 | HHI.PR ---
Subjective Remarks The patient was resting comfortably in bed. He says he is generally on 2 or 3 L of oxygen at home. He says he is breathing without difficulty. He says his pain is controlled. He was interested in having his port exchanged. Discussed with nursing. Objective Vitals Vital Signs Date Time Temp Pulse Resp B/P (MAP) Pulse Ox O2 Delivery O2 Flow Rate FiO2 06/23/17 08:00 97.0 88 16 140/65 (90) 91 06/23/17 04:00 97.8 82 18 124/61 (82) 92 06/23/17 00:23 87 06/23/17 00:00 96.2 88 18 128/59 (82) 92 06/22/17 20:45 92 Nasal Cannula 4.00 06/22/17 20:00 96.3 86 18 133/60 (84) 92 06/22/17 18:00 64 06/22/17 17:00 80 06/22/17 16:00 81 06/22/17 15:00 75 06/22/17 15:00 97.7 79 16 129/73 (91) 91 06/22/17 14:07 73 06/22/17 13:00 75 06/22/17 12:00 85 06/22/17 11:00 85 06/22/17 11:00 98.3 68 18 114/64 (81) 91 I/O 06/22/17 06/22/17 06/22/17 06/23/17 06/23/17 06/23/17 07:00 15:00 23:00 07:00 15:00 23:00 Intake Total 880 ml 1000 ml 1230 ml 340 ml 600 ml Output Total 600 ml 1350 ml 400 ml Balance 280 ml 1000 ml -120 ml -60 ml 600 ml Intake Oral 480 ml 480 ml 240 ml IV Total 400 ml 1000 ml 750 ml 100 ml 600 ml Output Urine Total 600 ml 1350 ml 400 ml # Voids 1 # Bowel Movements 0 Result Diagram: 06/23/1743906/23/17439 Imaging Last Impressions Chest X-Ray 06/22/17 0000 Signed Impressions: Service Date/Time: Thursday, June 22, 2017 16:12 - CONCLUSION: Possible mild cardiac decompensation Jorge Alberto Guzman MD Venous Access Device Injection 06/20/17 0000 Signed Impressions: Service Date/Time: June 12:42 - CONCLUSION: I do not clearly see a disruption of the port catheter, however contrast spills into the subcutaneous tract around the proximal catheter tubing and into the tissues of the low neck. There may be a disconnection or disruption at the tubing/ reservoir interface. The port will need to be replaced. Jorge Alberto Guzman MD Objective Remarks GENERAL: This is an obese male patient, in no apparent distress. SKIN: Right coates with erythema and induration. Improving. Right leg with elephantiasis. HEAD: Atraumatic. Normocephalic. EYES: No scleral icterus. No injection or drainage. ENT: Nose without bleeding, purulent drainage. Airway patent. NECK: Trachea midline. No JVD. CARDIOVASCULAR: Regular rate and rhythm without murmurs, gallops, or rubs. Left AKA. RESPIRATORY: Clear to auscultation. Breath sounds equal bilaterally. No wheezes , rales, or rhonchi. GASTROINTESTINAL: Abdomen soft, non-tender, nondistended. No hepato-splenomegaly , or palpable masses. No guarding. MUSCULOSKELETAL: Extremities without clubbing, cyanosis. Right leg with elephantiasis. NEUROLOGICAL: Awake and alert. Motor and sensory grossly within normal limits. Normal speech. PSYCH: Slightly flattened affect. Medications and IVs Current Medications Medications (Trade) Dose Ordered Sig/Carrie Route Start Time Stop Time Status Last Admin (NS Flush) 2 ml UNSCH PRN IV FLUSH 06/20/17 01:30 (NS Flush) 2 ml BID IV FLUSH 06/20/17 09:00 06/23/17 08:23 (Narcan Inj) 0.4 mg UNSCH PRN IV PUSH 06/20/17 01:30 Pharmacy Profile Note 0 ml @ 0 mls/hr UNSCH OTHER 06/20/17 01:30 Piperacillin Sod/ Tazobactam Sod 100 ml @ 200 mls/hr Q6H IV 06/20/17 08:00 06/23/17 08:22 (Zofran Inj) 4 mg Q6HR PRN IV PUSH 06/20/17 04:00 06/22/17 11:02 (Phenergan Inj) 12.5 mg Q4H PRN IM 06/20/17 04:00 Pharmacy Profile Note 0 ml @ 0 mls/hr UNSCH OTHER 06/20/17 04:30 (Cardizem Cd) 240 mg DAILY PO 06/20/17 09:00 06/23/17 08:25 (Lasix) 20 mg DAILY PO 06/20/17 09:00 06/23/17 08:25 (Neurontin) 100 mg Q6HR PO 06/20/17 06:00 06/23/17 05:33 (Glucotrol) 20 mg DAILY@0800,1700 PO 06/20/17 09:00 06/23/17 08:45 (KCl) 10 meq DAILY PO 06/20/17 09:00 06/23/17 08:25 (Pravachol) 20 mg HS PO 06/20/17 21:00 06/22/17 20:48 (Lyrica) 100 mg TID PO 06/20/17 09:00 06/23/17 08:25 (Mysoline) 50 mg TID PO 06/20/17 09:00 06/23/17 08:25 (Aldactone) 25 mg DAILY PO 06/20/17 09:00 06/23/17 08:25 (Effexor Xr) 300 mg DAILY PO 06/20/17 09:00 06/23/17 08:23 (D50w (Vial) Inj) 50 ml UNSCH PRN IV PUSH 06/20/17 04:45 (Glucagon Inj) 1 mg UNSCH PRN OTHER 06/20/17 04:45 (NovoLOG SUPPLEMENTAL SCALE) 1 ACHS SLIDING SCALE SQ 06/20/17 08:00 06/22/17 21:28 (Duoneb Neb) 1 ampule Q4HR NEB PRN NEB 06/20/17 04:45 Vancomycin HCl 1500 mg/Sodium Chloride 515 ml @ 250 mls/hr Q12H IV 06/20/17 14:00 06/23/17 02:00 (Dilaudid Pf Inj) 1 mg Q4H PRN IV PUSH 06/21/17 12:00 (Albertina-Colace) 1 tab BID PO 06/21/17 11:00 06/22/17 09:15 (Roxicodone) 5 mg Q4H PRN PO 06/21/17 10:15 06/23/17 05:33 (Pill Splitter) 1 ea UNSCH PRN OTHER 06/21/17 14:00 (Coumadin) 5 mg DAILY@1600 PO 06/21/17 21:00 06/22/17 15:16 A/P Problem List: (1) Cellulitis of right leg ICD Code: L03.115 - Cellulitis of right lower limb Status: Acute (2) Venous stasis dermatitis of right lower extremity ICD Code: I87.2 - Venous stasis dermatitis of right lower extremity Status: Acute (3) Type 2 diabetes mellitus ICD Code: E11.9 - Type 2 diabetes mellitus without complications Status: Chronic (4) History of DVT (deep vein thrombosis) ICD Code: Z86.718 - History of DVT (deep vein thrombosis) Status: Chronic (5) Coronary artery disease ICD Code: I25.10 - Coronary artery disease Status: Chronic (6) COPD (chronic obstructive pulmonary disease) ICD Code: J44.9 - Chronic obstructive pulmonary disease, unspecified Status: Chronic (7) Atrial fibrillation ICD Code: I48.91 - Atrial fibrillation Status: Chronic (8) Seizure disorder ICD Code: G40.909 - Seizure disorder Status: Chronic (9) Hyperlipidemia ICD Code: E78.5 - Hyperlipidemia, unspecified Status: Chronic Assessment and Plan 62 y/o male with progressively worsening right coates ulceration despite outpatient Dalvance therapy: Cellulitis Right lower extremity, failed outpatient Dalvance Lactic acidosis - 05/29/17 wound culture + for MRSA, pseudomonas (not sensitive to Vancomycin), and group b beta strep - Antibiotics: Vancomycin with pharmacy consult for therapeutic monitoring and dosing and Zosyn 4.5 gm q6h IV - Lactic Acid 3.3, WBC 14.1 with neutrophilia - repeat labs and continue to monitor. Resolved. - consulted infectious disease - appreciate assistance. - blood cultures pending. NGTD. - consulted wound care nurse for assistance. Appreciate recommendations. - Pain control with a bowel regimen. Nausea Secondary to pain. Seems resolved. - Zofran 4 mg IV q6h PRN n/v - Phenergan 12.5 mg IM q4h PRN n/v History of DVT On Coumadin. - Continue warfarin with pharmacy consult for therapeutic dosing and monitoring. INR 1.8 06/23. Coronary artery disease No chest pain at this time. - Continue home statin - Heart healthy diet - Continuous cardiac telemetry to monitor heart rate and any dysrhythmias COPD Breathing is stable. On 4L NC. Normally on 2-3 L at home. CXR noted. - Duo nebulizers every 4 hours when necessary shortness of breath/wheezing. - Monitor oxygen saturations and provide supplemental oxygen if necessary. Type 2 diabetes mellitus Glucose well controlled. - Hold home metformin. - Accu-Cheks before meals and at bedtime with medium dose NovoLog sliding scale coverage. - Monitor blood glucose trends and adjust medications as indicated. - Hypoglycemia protocol. - ADA diet- 1800 kcal. Atrial fibrillation Rate controlled. - Continue Coumadin per pharmacy recommendations. - Continue home Cardizem. Malfunctioning port Status post study by interventional radiology. - Port will need to be replaced once cleared by infectious disease. Will try to schedule for 06/23. DVT prophylaxis - Coumadin per pharmacy for therapeutic monitoring and dosing Discharge Planning Awaiting clinical improvement Forrest Sherman DO Jun 23, 2017 10:46
[2017-06-23] MEDS: VANCOMYCIN 1,000 MG/NS 250 ML IV SCH ×2 (13:10)
[2017-06-23] MEDS: WARFARIN SOD 5 MG TAB PO SCH (16:00)
[2017-06-23] MEDS: PRAVASTATIN SOD 20 MG TAB PO SCH (20:03)
[2017-06-24] VITALS (8 sets, daily range): BP systolic 115–138; BP diastolic 62–73; PULSE 81–90; RESP 17–20; TEMP 96–97.6; O2SAT 92–95
[2017-06-24] MEDS: VANCOMYCIN 1,000 MG/NS 250 ML IV SCH ×4 (01:48→15:27)
[2017-06-24] MEDS: PIPERACIL-TAZO 4.5 GM PREMIX 100 ML IV SCH ×4 (01:48→19:45)
[2017-06-24] MEDS: GABAPENTIN 100 MG CAP PO SCH ×3 (06:16→18:09)
[2017-06-24 07:43] LABS: HEMATOCRIT 29.4 % (39.0-51.0); MEAN CELL VOLUME 78.5 FL (80.0-100.0); MEAN CORPUSCULAR HEMOGLOBIN 23.6 PG (27.0-34.0); MEAN CORPUSCULAR HGB CONC 30.1 % (32.0-36.0); PLATELET COUNT 348 TH/MM3 (150-450); RED BLOOD COUNT 3.74 MIL/MM3 (4.50-5.90); RED CELL DISTRIBUTION WIDTH 18.5 % (11.6-17.2); REVIEW FLAG FINAL; WHITE BLOOD COUNT 10.5 TH/MM3 (4.0-11.0)
[2017-06-24 07:47] LABS: INTERNATIONAL NORMALIZED RATIO 2.3 RATIO
[2017-06-24] MEDS: INSULIN ASPART SUPPLEMENTAL SCALE SQ SCH ×4 (08:00→19:53)
[2017-06-24 08:12] LABS: POTASSIUM 3.5 MEQ/L (3.5-5.1)
[2017-06-24] MEDS: DOCUSATE SODIUM 50 MG/SENNA 8.6 MG TAB PO SCH ×2 (09:00→19:44)
[2017-06-24] MEDS: SPIRONOLACTONE 25 MG TAB PO SCH (10:06)
[2017-06-24] MEDS: VENLAFAXINE HCL XR 75 MG CAP PO SCH (10:06)
[2017-06-24] MEDS: POTASSIUM CHLORIDE 10 MEQ CAP PO SCH (10:07)
[2017-06-24] MEDS: PREGABALIN 100 MG CAP PO SCH ×3 (10:07→18:13)
[2017-06-24] MEDS: FUROSEMIDE 20 MG TAB PO SCH (10:07)
[2017-06-24] MEDS: DILTIAZEM-CD 240 MG CAP ER PO SCH (10:07)
[2017-06-24] MEDS: PRIMIDONE 50 MG TAB PO SCH ×3 (10:08→18:09)
[2017-06-24] MEDS: SODIUM CHLORIDE 0.9% FLUSH 10 ML FLUSH IV FLUSH SCH ×2 (10:08→19:45)
[2017-06-24] MEDS: glipiZIDE 10 MG TAB PO SCH (10:37)
--- NOTE | 2017-06-24 12:07 | HHI.PR ---
Subjective Remarks The patient was ordering lunch. He said he couldn't go for the port placement because his INR was elevated. No other acute complaints. Objective Vitals Vital Signs Date Time Temp Pulse Resp B/P (MAP) Pulse Ox O2 Delivery O2 Flow Rate FiO2 06/24/17 10:00 82 06/24/17 10:00 Nasal Cannula 4.00 06/24/17 10:00 82 06/24/17 04:00 97.0 82 17 120/62 (81) 93 06/24/17 00:00 97.6 84 17 128/67 (87) 92 06/23/17 21:29 93 Nasal Cannula 4.00 06/23/17 20:01 91 Nasal Cannula 4.00 06/23/17 20:00 97.1 84 17 118/61 (80) 91 06/23/17 19:39 85 06/23/17 16:00 97.0 88 16 138/60 (86) 92 I/O 06/23/17 06/23/17 06/23/17 06/24/17 06/24/17 06/24/17 06:59 14:59 22:59 06:59 14:59 22:59 Intake Total 340 ml 950 ml 700 ml 350 ml Output Total 400 ml 600 ml 650 ml Balance -60 ml 350 ml 700 ml -300 ml Intake Oral 240 ml 600 ml 0 ml IV Total 100 ml 950 ml 100 ml 350 ml Output Urine Total 400 ml 600 ml 650 ml # Voids 1 5 # Bowel Movements 3 1 Result Diagram: 06/24/17 0718 06/24/17 0718 Imaging Last Impressions Chest X-Ray 06/22/17 0000 Signed Impressions: Service Date/Time: Thursday, June 22, 2017 16:12 - CONCLUSION: Possible mild cardiac decompensation Jorge Alberto Guzman MD Venous Access Device Injection 06/20/17 0000 Signed Impressions: Service Date/Time: June 12:42 - CONCLUSION: I do not clearly see a disruption of the port catheter, however contrast spills into the subcutaneous tract around the proximal catheter tubing and into the tissues of the low neck. There may be a disconnection or disruption at the tubing/ reservoir interface. The port will need to be replaced. Jorge Alberto Guzman MD Objective Remarks GENERAL: This is an obese male patient, in no apparent distress. SKIN: Right coates with erythema and induration. Improving. Right leg with elephantiasis. HEAD: Atraumatic. Normocephalic. EYES: No scleral icterus. No injection or drainage. ENT: Nose without bleeding, purulent drainage. Airway patent. NECK: Trachea midline. No JVD. CARDIOVASCULAR: Regular rate and rhythm without murmurs, gallops, or rubs. Left AKA. RESPIRATORY: Clear to auscultation. Breath sounds equal bilaterally. No wheezes , rales, or rhonchi. GASTROINTESTINAL: Abdomen soft, non-tender, nondistended. No hepato-splenomegaly , or palpable masses. No guarding. MUSCULOSKELETAL: Extremities without clubbing, cyanosis. Right leg with elephantiasis. Tender to palpation. NEUROLOGICAL: Awake and alert. Motor and sensory grossly within normal limits. Normal speech. PSYCH: Mood and affect appropriate. Medications and IVs Current Medications Medications (Trade) Dose Ordered Sig/Carrie Route Start Time Stop Time Status Last Admin (NS Flush) 2 ml UNSCH PRN IV FLUSH 06/20/17 01:30 (NS Flush) 2 ml BID IV FLUSH 06/20/17 09:00 06/24/17 10:08 (Narcan Inj) 0.4 mg UNSCH PRN IV PUSH 06/20/17 01:30 Pharmacy Profile Note 0 ml @ 0 mls/hr UNSCH OTHER 06/20/17 01:30 Piperacillin Sod/ Tazobactam Sod 100 ml @ 200 mls/hr Q6H IV 06/20/17 08:00 06/24/17 10:37 (Zofran Inj) 4 mg Q6HR PRN IV PUSH 06/20/17 04:00 06/22/17 11:02 (Phenergan Inj) 12.5 mg Q4H PRN IM 06/20/17 04:00 Pharmacy Profile Note 0 ml @ 0 mls/hr UNSCH OTHER 06/20/17 04:30 (Cardizem Cd) 240 mg DAILY PO 06/20/17 09:00 06/24/17 10:07 (Lasix) 20 mg DAILY PO 06/20/17 09:00 06/24/17 10:07 (Neurontin) 100 mg Q6HR PO 06/20/17 06:00 06/24/17 06:16 (Glucotrol) 20 mg DAILY@0800,1700 PO 06/20/17 09:00 06/24/17 10:37 (KCl) 10 meq DAILY PO 06/20/17 09:00 06/24/17 10:07 (Pravachol) 20 mg HS PO 06/20/17 21:00 06/23/17 20:03 (Lyrica) 100 mg TID PO 06/20/17 09:00 06/24/17 10:07 (Mysoline) 50 mg TID PO 06/20/17 09:00 06/24/17 10:08 (Aldactone) 25 mg DAILY PO 06/20/17 09:00 06/24/17 10:06 (Effexor Xr) 300 mg DAILY PO 06/20/17 09:00 06/24/17 10:06 (D50w (Vial) Inj) 50 ml UNSCH PRN IV PUSH 06/20/17 04:45 (Glucagon Inj) 1 mg UNSCH PRN OTHER 06/20/17 04:45 (NovoLOG SUPPLEMENTAL SCALE) 1 ACHS SLIDING SCALE SQ 06/20/17 08:00 06/22/17 21:28 (Duoneb Neb) 1 ampule Q4HR NEB PRN NEB 06/20/17 04:45 06/23/17 21:26 (Dilaudid Pf Inj) 1 mg Q4H PRN IV PUSH 06/21/17 12:00 (Albertina-Colace) 1 tab BID PO 06/21/17 11:00 06/22/17 09:15 (Roxicodone) 5 mg Q4H PRN PO 06/21/17 10:15 06/24/17 10:37 (Pill Splitter) 1 ea UNSCH PRN OTHER 06/21/17 14:00 06/24/17 10:07 Vancomycin HCl 1000 mg/Sodium Chloride 250 ml @ 250 mls/hr Q12H IV 06/23/17 14:00 06/24/17 01:48 Miscellaneous Information SPECIFIC LAB TO BE DRAWN:EPI TROUGH DATE TO BE DRCelia. ONCE ONCE .XX 06/25/17 01:45 06/25/17 01:46 (Coumadin) 4 mg DAILY@1600 PO 06/24/17 16:00 A/P Problem List: (1) Cellulitis of right leg ICD Code: L03.115 - Cellulitis of right lower limb Status: Acute (2) Venous stasis dermatitis of right lower extremity ICD Code: I87.2 - Venous stasis dermatitis of right lower extremity Status: Acute (3) Type 2 diabetes mellitus ICD Code: E11.9 - Type 2 diabetes mellitus without complications Status: Chronic (4) History of DVT (deep vein thrombosis) ICD Code: Z86.718 - History of DVT (deep vein thrombosis) Status: Chronic (5) Coronary artery disease ICD Code: I25.10 - Coronary artery disease Status: Chronic (6) COPD (chronic obstructive pulmonary disease) ICD Code: J44.9 - Chronic obstructive pulmonary disease, unspecified Status: Chronic (7) Atrial fibrillation ICD Code: I48.91 - Atrial fibrillation Status: Chronic (8) Seizure disorder ICD Code: G40.909 - Seizure disorder Status: Chronic (9) Hyperlipidemia ICD Code: E78.5 - Hyperlipidemia, unspecified Status: Chronic Assessment and Plan 62 y/o male with progressively worsening right coates ulceration despite outpatient Dalvance therapy: Cellulitis Right lower extremity, failed outpatient Dalvance Lactic acidosis - 05/29/17 wound culture + for MRSA, pseudomonas (not sensitive to Vancomycin), and group b beta strep - Antibiotics: Vancomycin with pharmacy consult for therapeutic monitoring and dosing and Zosyn 4.5 gm q6h IV - Lactic Acid 3.3, WBC 14.1 with neutrophilia - repeat labs and continue to monitor. Resolved. - consulted infectious disease - appreciate assistance. - blood cultures with no growth. - consulted wound care nurse for assistance. Appreciate recommendations. - Pain control with a bowel regimen. Nausea Secondary to pain. Seems resolved. - Zofran 4 mg IV q6h PRN n/v - Phenergan 12.5 mg IM q4h PRN n/v History of DVT On Coumadin. - hold Coumadin and start heparin gtt when INR < 2. Coronary artery disease No chest pain at this time. - Continue home statin - Heart healthy diet - Continuous cardiac telemetry to monitor heart rate and any dysrhythmias COPD Breathing is stable. On 4L NC. Normally on 2-3 L at home. CXR noted. - Duo nebulizers every 4 hours when necessary shortness of breath/wheezing. - Monitor oxygen saturations and provide supplemental oxygen if necessary. Type 2 diabetes mellitus Glucose well controlled. - Hold home metformin. - Accu-Cheks before meals and at bedtime with medium dose NovoLog sliding scale coverage. - Monitor blood glucose trends and adjust medications as indicated. - Hypoglycemia protocol. - ADA diet- 1800 kcal. Atrial fibrillation Rate controlled. - Continue home Cardizem. Malfunctioning port Status post study by interventional radiology. - Port will need to be replaced. Coumadin on hold. Follow INR. PPx: Coumadin on hold. INR over 2. Discharge Planning Awaiting port placement Forrest Sherman DO Jun 24, 2017 12:07
[2017-06-24] MEDS: LACTIC ACID (AMMONIUM LACTATE) 12% LOTION 225 GM BTL TOPICAL SCH ×2 (12:15→19:46)
[2017-06-24] MEDS ORDERED: WARFARIN SOD 4 MG TAB PO SCH (16:00)
--- NOTE | 2017-06-24 16:34 | HHI.PR ---
Addendum to Inpatient Note Additional Information pt seen around 1430 full note to follow Lavonne Lagunas RN, MD Jun 24, 2017 16:34
[2017-06-24] MEDS: PRAVASTATIN SOD 20 MG TAB PO SCH (19:44)
--- NOTE | 2017-06-24 23:41 | HHI.IDPN ---
Subjective Subjective Remarks pt seen around 1430 delayed entry Antibiotics vancomycin and zosyn Allergies: Coded Allergies: MRI PRECAUTION (Verified Allergy, Severe, ANEURSYM CLIPPING, 06/19/17) diatrizoate meglumine (Unverified Allergy, Severe, SHOCK, 06/19/17) gadobenic acid (Unverified Allergy, Severe, SHOCK, 06/19/17) gadodiamide (Unverified Allergy, Severe, SHOCK, 06/19/17) gadoteridol (Unverified Allergy, Severe, SHOCK, 06/19/17) iodine (Unverified Allergy, Severe, 06/19/17) iodixanol (Unverified Allergy, Severe, SHOCK, 06/19/17) iohexol (Unverified Allergy, Severe, SHOCK, 06/19/17) potassium iodide (Unverified Allergy, Severe, 06/19/17) povidone-iodine (Unverified Allergy, Severe, 06/19/17) sodium iodide (Unverified Allergy, Severe, 06/19/17) sodium iodide (Unverified Allergy, Severe, 06/19/17) Objective . Vital Signs Date Time Temp Pulse Resp B/P (MAP) Pulse Ox O2 Delivery O2 Flow Rate FiO2 06/24/17 20:53 20 06/24/17 20:00 96.3 81 20 138/64 (88) 95 06/24/17 19:48 Nasal Cannula 4.00 06/24/17 19:23 87 06/24/17 19:13 20 06/24/17 16:00 96.0 85 18 118/73 (88) 94 06/24/17 12:00 96.6 90 20 115/68 (84) 92 06/24/17 10:00 82 06/24/17 10:00 Nasal Cannula 4.00 06/24/17 10:00 82 06/24/17 08:00 97.2 83 20 116/72 (87) 92 06/24/17 04:00 97.0 82 17 120/62 (81) 93 06/24/17 00:00 97.6 84 17 128/67 (87) 92 06/24/17 06/24/17 06/25/17 14:59 22:59 06:59 Intake Total 100 ml 830 ml Output Total 750 ml Balance 100 ml 80 ml Intake Oral 480 ml IV Total 100 ml 350 ml Output Urine Total 750 ml # Bowel Movements 2 . Laboratory Tests Test 06/23/17 04:40 06/24/17 07:18 White Blood Count 10.4 TH/MM3 10.5 TH/MM3 Red Blood Count 3.61 MIL/MM3 3.74 MIL/MM3 Hemoglobin 8.7 GM/DL 8.8 GM/DL Hematocrit 28.3 % 29.4 % Mean Corpuscular Volume 78.3 FL 78.5 FL Mean Corpuscular Hemoglobin 24.1 PG 23.6 PG Mean Corpuscular Hemoglobin Concent 30.7 % 30.1 % Red Cell Distribution Width 18.5 % 18.5 % Platelet Count 356 TH/MM3 348 TH/MM3 Mean Platelet Volume 7.7 FL 7.5 FL Neutrophils (%) (Auto) 72.9 % Lymphocytes (%) (Auto) 15.2 % Monocytes (%) (Auto) 6.7 % Eosinophils (%) (Auto) 3.9 % Basophils (%) (Auto) 1.3 % Neutrophils # (Auto) 7.6 TH/MM3 Lymphocytes # (Auto) 1.6 TH/MM3 Monocytes # (Auto) 0.7 TH/MM3 Eosinophils # (Auto) 0.4 TH/MM3 Basophils # (Auto) 0.1 TH/MM3 CBC Comment DIFF FINAL Differential Comment Laboratory Tests Test 06/23/17 04:40 06/24/17 07:18 Creatinine 0.54 MG/DL 0.57 MG/DL Estimat Glomerular Filtration Rate 153 ML/MIN 144 ML/MIN Blood Urea Nitrogen 6 MG/DL Random Glucose 65 MG/DL Calcium Level 8.2 MG/DL Magnesium Level 2.0 MG/DL Sodium Level 139 MEQ/L Potassium Level 3.5 MEQ/L Chloride Level 98 MEQ/L Carbon Dioxide Level 36.0 MEQ/L Anion Gap 5 MEQ/L Imaging Last Impressions Chest X-Ray 06/22/17 0000 Signed Impressions: Service Date/Time: Thursday, June 22, 2017 16:12 - CONCLUSION: Possible mild cardiac decompensation Jorge Alberto Guzman MD Venous Access Device Injection 06/20/17 0000 Signed Impressions: Service Date/Time: June 12:42 - CONCLUSION: I do not clearly see a disruption of the port catheter, however contrast spills into the subcutaneous tract around the proximal catheter tubing and into the tissues of the low neck. There may be a disconnection or disruption at the tubing/ reservoir interface. The port will need to be replaced. Jorge Alberto Guzman MD Physical Exam CONSTITUTIONAL/GENERAL: This is a morbidly obese male, in no apparent distress. TUBES/LINES/DRAINS: PORT in place R chest - looks OK, apparently not functioning SKIN: No jaundice, rashes, or lesions. CARDIOVASCULAR: Regular rate and rhythm without murmurs, gallops, or rubs. No JVD. Peripheral pulses symmetric. RESPIRATORY/CHEST: Symmetric, unlabored respirations. Clear to auscultation. Breath sounds equal bilaterally. No wheezes, rales, or rhonchi. GASTROINTESTINAL: Abdomen soft, non-tender, nondistended. No hepato-splenomegaly , or palpable masses. No guarding. Bowel sounds present. MUSCULOSKELETAL: Extremities without clubbing, cyanosis, Sp LLE AKA. RLE is with significantly improved edema, resolved, erythema not tender to alpation, 2 superficial partial tickness clean ulcers on the coates - crusted No joint tenderness or effusion noted. No calf tenderness. No mottling or clubbing. NEUROLOGICAL: Awake and alert. Motor and sensory grossly within normal limits. Follows commands. Clear speech. Moves all extremities. PSYCHIATRIC: calm , cooperative Assessment & Plan Remarks CHronic venostasis RLE cellulits sp Dalvancin, failed Previously grew PSAE, GAS - dc vancomycin and zosyn - change to levaquine+ clndamycin - complete 10 -14 days of abx Lavonne Robins MD Jun 24, 2017 23:41
[2017-06-25] VITALS (10 sets, daily range): BP systolic 114–144; BP diastolic 59–81; PULSE 79–92; RESP 18–21; TEMP 96.6–97.9; O2SAT 92–95
[2017-06-25] MEDS: CLINDAMYCIN 150 MG CAP PO SCH ×4 (00:06→17:02)
[2017-06-25] MEDS: GABAPENTIN 100 MG CAP PO SCH ×4 (00:06→17:03)
[2017-06-25] MEDS ORDERED: PHARMACY ORDERED LAB ONE (01:45)
[2017-06-25] MEDS: INSULIN ASPART SUPPLEMENTAL SCALE SQ SCH ×4 (07:19→20:03)
[2017-06-25 07:46] LABS: INTERNATIONAL NORMALIZED RATIO 1.7 RATIO; PROTHROMBIN TIME - PATIENT 18.8 SEC (9.8-11.6)
[2017-06-25] MEDS ORDERED: HEPARIN-D5W 25,000 U/250 ML 250 ML IV PRN (10:30)
[2017-06-25] MEDS: DILTIAZEM-CD 240 MG CAP ER PO SCH (10:47)
[2017-06-25] MEDS: VENLAFAXINE HCL XR 75 MG CAP PO SCH (10:48)
[2017-06-25] MEDS: LEVOFLOXACIN 750 MG TAB PO SCH (10:48)
[2017-06-25] MEDS: POTASSIUM CHLORIDE 10 MEQ CAP PO SCH (10:48)
[2017-06-25] MEDS: SPIRONOLACTONE 25 MG TAB PO SCH (10:48)
[2017-06-25] MEDS: DOCUSATE SODIUM 50 MG/SENNA 8.6 MG TAB PO SCH ×2 (10:48→19:58)
[2017-06-25] MEDS: FUROSEMIDE 20 MG TAB PO SCH (10:49)
[2017-06-25] MEDS: SODIUM CHLORIDE 0.9% FLUSH 10 ML FLUSH IV FLUSH SCH ×2 (10:49→19:54)
[2017-06-25] MEDS: PREGABALIN 100 MG CAP PO SCH ×3 (10:49→17:02)
[2017-06-25] MEDS: LACTIC ACID (AMMONIUM LACTATE) 12% LOTION 225 GM BTL TOPICAL SCH ×2 (10:50→19:55)
[2017-06-25] MEDS: PRIMIDONE 50 MG TAB PO SCH ×3 (10:50→17:30)
--- NOTE | 2017-06-25 11:25 | HHI.FF ---
Face to Face Verification Diagnosis: (1) Port catheter in place (2) Type 2 diabetes mellitus (3) Atrial fibrillation (4) COPD (chronic obstructive pulmonary disease) (5) Venous stasis dermatitis of right lower extremity (6) Cellulitis of right leg Home Health Nursing Order: Medical education Signs/symptoms of disease process Diabetic education Medication education-adverse effect Wound care and dressing changes Nursing assessment with vital signs Instructions: Please cleanse wound to R coates with wound cleanser. Apply optifoam AG gentle over wound bed. May cut foam to fit over wound bed. Secure dressing with rolled gauze and tape. Change dressing daily or PRN if saturated or dislodged. I have seen patient Jorge Alberto Contreras on 06/25/17. My clinical findings support the need for the requested home health care services because: Ltd mobility - disease progression Patient has SOB Deconditioned w/ increased weakness Limited ability to care for self High risk of falls Infection w/ risk of complications Injectable med education/admin I certify that my clinical findings support that this patient is homebound because: Hx COPD- exertion dyspnea/weakness Unsteady gait/balance Unsafe to leave home unassisted Forrest Sherman DO Jun 25, 2017 11:25
--- NOTE | 2017-06-25 11:28 | HHI.PR ---
Subjective Remarks The patient was upset to learn that he would not have the port exchanged today. He had no other acute complaints. Discussed with nursing. Objective Vitals Vital Signs Date Time Temp Pulse Resp B/P (MAP) Pulse Ox O2 Delivery O2 Flow Rate FiO2 06/25/17 11:12 79 06/25/17 11:12 4.00 06/25/17 08:00 97.2 84 18 129/70 (89) 95 06/25/17 05:45 18 06/25/17 04:00 97.5 86 20 136/67 (90) 93 06/25/17 00:00 97.2 92 20 117/59 (78) 94 06/24/17 20:00 96.3 81 20 138/64 (88) 95 06/24/17 19:48 Nasal Cannula 4.00 06/24/17 19:23 87 06/24/17 19:13 20 06/24/17 16:00 96.0 85 18 118/73 (88) 94 06/24/17 12:00 96.6 90 20 115/68 (84) 92 I/O 06/24/17 06/24/17 06/24/17 06/25/17 06/25/17 06/25/17 07:00 15:00 23:00 07:00 15:00 23:00 Intake Total 350 ml 100 ml 830 ml 480 ml Output Total 650 ml 750 ml 625 ml Balance -300 ml 100 ml 80 ml -145 ml Intake Oral 0 ml 480 ml 480 ml IV Total 350 ml 100 ml 350 ml Output Urine Total 650 ml 750 ml 625 ml # Bowel Movements 1 2 1 Result Diagram: 06/24/17 0718 06/25/17 0641 Imaging Last Impressions Chest X-Ray 06/22/17 0000 Signed Impressions: Service Date/Time: Thursday, June 22, 2017 16:12 - CONCLUSION: Possible mild cardiac decompensation Jorge Alberto Guzman MD Venous Access Device Injection 06/20/17 0000 Signed Impressions: Service Date/Time: June 12:42 - CONCLUSION: I do not clearly see a disruption of the port catheter, however contrast spills into the subcutaneous tract around the proximal catheter tubing and into the tissues of the low neck. There may be a disconnection or disruption at the tubing/ reservoir interface. The port will need to be replaced. Jorge Alberto Guzman MD Objective Remarks GENERAL: This is an obese male patient, in no apparent distress. SKIN: Right coates with erythema and induration. Improving. Right leg with elephantiasis. HEAD: Atraumatic. Normocephalic. EYES: No scleral icterus. No injection or drainage. ENT: Nose without bleeding, purulent drainage. Airway patent. NECK: Trachea midline. No JVD. CARDIOVASCULAR: Regular rate and rhythm without murmurs, gallops, or rubs. Left AKA. RESPIRATORY: Clear to auscultation. Breath sounds equal bilaterally. No wheezes , rales, or rhonchi. GASTROINTESTINAL: Abdomen soft, non-tender, nondistended. No hepato-splenomegaly , or palpable masses. No guarding. MUSCULOSKELETAL: Extremities without clubbing, cyanosis. Right leg with elephantiasis. Tender to palpation. NEUROLOGICAL: Awake and alert. Motor and sensory grossly within normal limits. Normal speech. PSYCH: Mood and affect appropriate. Medications and IVs Current Medications Medications (Trade) Dose Ordered Sig/Carrie Route Start Time Stop Time Status Last Admin (NS Flush) 2 ml UNSCH PRN IV FLUSH 06/20/17 01:30 (NS Flush) 2 ml BID IV FLUSH 06/20/17 09:00 06/25/17 10:49 (Narcan Inj) 0.4 mg UNSCH PRN IV PUSH 06/20/17 01:30 (Zofran Inj) 4 mg Q6HR PRN IV PUSH 06/20/17 04:00 06/22/17 11:02 (Phenergan Inj) 12.5 mg Q4H PRN IM 06/20/17 04:00 Pharmacy Profile Note 0 ml @ 0 mls/hr UNSCH OTHER 06/20/17 04:30 (Cardizem Cd) 240 mg DAILY PO 06/20/17 09:00 06/25/17 10:47 (Lasix) 20 mg DAILY PO 06/20/17 09:00 06/25/17 10:49 (Neurontin) 100 mg Q6HR PO 06/20/17 06:00 06/25/17 05:59 (Glucotrol) 20 mg DAILY@0800,1700 PO 06/20/17 09:00 Future Hold 06/24/17 10:37 (KCl) 10 meq DAILY PO 06/20/17 09:00 06/25/17 10:48 (Pravachol) 20 mg HS PO 06/20/17 21:00 06/24/17 19:44 (Lyrica) 100 mg TID PO 06/20/17 09:00 06/25/17 10:49 (Mysoline) 50 mg TID PO 06/20/17 09:00 06/25/17 10:50 (Aldactone) 25 mg DAILY PO 06/20/17 09:00 06/25/17 10:48 (Effexor Xr) 300 mg DAILY PO 06/20/17 09:00 06/25/17 10:48 (D50w (Vial) Inj) 50 ml UNSCH PRN IV PUSH 06/20/17 04:45 (Glucagon Inj) 1 mg UNSCH PRN OTHER 06/20/17 04:45 (NovoLOG SUPPLEMENTAL SCALE) 1 ACHS SLIDING SCALE SQ 06/20/17 08:00 06/24/17 19:53 (Duoneb Neb) 1 ampule Q4HR NEB PRN NEB 06/20/17 04:45 06/23/17 21:26 (Dilaudid Pf Inj) 1 mg Q4H PRN IV PUSH 06/21/17 12:00 (Albertina-Colace) 1 tab BID PO 06/21/17 11:00 06/25/17 10:48 (Roxicodone) 5 mg Q4H PRN PO 06/21/17 10:15 06/25/17 10:46 (Pill Splitter) 1 ea UNSCH PRN OTHER 06/21/17 14:00 06/24/17 10:07 (Coumadin) 4 mg DAILY@1600 PO 06/24/17 16:00 Future Hold (Lac-Hydrin 12% Lotion) 1 applic BID TOPICAL 06/24/17 12:15 06/25/17 10:50 (Cleocin) 300 mg Q6H PO 06/25/17 00:00 06/25/17 06:00 (Levaquin) 750 mg DAILY PO 06/25/17 09:00 06/25/17 10:48 Heparin Sodium/ Dextrose 250 ml @ 10 mls/hr TITRATE PRN IV 06/25/17 10:30 A/P Problem List: (1) Cellulitis of right leg ICD Code: L03.115 - Cellulitis of right lower limb Status: Acute (2) Venous stasis dermatitis of right lower extremity ICD Code: I87.2 - Venous stasis dermatitis of right lower extremity Status: Acute (3) Type 2 diabetes mellitus ICD Code: E11.9 - Type 2 diabetes mellitus without complications Status: Chronic (4) History of DVT (deep vein thrombosis) ICD Code: Z86.718 - History of DVT (deep vein thrombosis) Status: Chronic (5) Coronary artery disease ICD Code: I25.10 - Coronary artery disease Status: Chronic (6) COPD (chronic obstructive pulmonary disease) ICD Code: J44.9 - Chronic obstructive pulmonary disease, unspecified Status: Chronic (7) Atrial fibrillation ICD Code: I48.91 - Atrial fibrillation Status: Chronic (8) Seizure disorder ICD Code: G40.909 - Seizure disorder Status: Chronic (9) Hyperlipidemia ICD Code: E78.5 - Hyperlipidemia, unspecified Status: Chronic Assessment and Plan 62 y/o male with progressively worsening right coates ulceration despite outpatient Dalvance therapy: Cellulitis Right lower extremity, failed outpatient Dalvance Lactic acidosis - 05/29/17 wound culture + for MRSA, pseudomonas (not sensitive to Vancomycin), and group b beta strep - Antibiotics: Vancomycin and Zosyn changed to Levaquin and clindamycin per ID to complete a 10-14 day course. - Lactic Acid 3.3, WBC 14.1 with neutrophilia - repeat labs and continue to monitor. Resolved. - consulted infectious disease - appreciate assistance. - blood cultures with no growth. - consulted wound care nurse for assistance. Appreciate recommendations. Will have home health care upon discharge. - Pain control with a bowel regimen. Nausea Secondary to pain. Seems resolved. - Zofran 4 mg IV q6h PRN n/v - Phenergan 12.5 mg IM q4h PRN n/v History of DVT On Coumadin. - hold Coumadin and start heparin gtt when INR < 2. Coronary artery disease No chest pain at this time. - Continue home statin - Heart healthy diet - Continuous cardiac telemetry to monitor heart rate and any dysrhythmias COPD Breathing is stable. On 4L NC. Normally on 2-3 L at home. CXR noted. - Duo nebulizers every 4 hours when necessary shortness of breath/wheezing. - Monitor oxygen saturations and provide supplemental oxygen if necessary. Type 2 diabetes mellitus Glucose well controlled. - Hold home metformin. - Accu-Cheks before meals and at bedtime with medium dose NovoLog sliding scale coverage. - Monitor blood glucose trends and adjust medications as indicated. - Hypoglycemia protocol. - ADA diet- 1800 kcal. Atrial fibrillation Rate controlled. - Continue home Cardizem. Malfunctioning port Status post study by interventional radiology. - Port will need to be replaced. Coumadin on hold. Follow INR. 1.7. IR would like to wait until 06/26 to perform exchange. PPx: Heparin gtt Discharge Planning Awaiting port placement 06/26 Forrest Sherman DO Jun 25, 2017 11:28
[2017-06-25] MEDS: ONDANSETRON HCL 4 MG/2 ML VIAL IV PUSH PRN ×2 (11:49→22:15)
[2017-06-25 13:56] LABS: APTT (PATIENT) 36.6 SEC (24.3-30.1); INTERNATIONAL NORMALIZED RATIO 1.6 RATIO; PROTHROMBIN TIME - PATIENT 18.6 SEC (9.8-11.6)
[2017-06-25] MEDS: PRAVASTATIN SOD 20 MG TAB PO SCH (19:54)
[2017-06-25] MEDS: HYDROmorphone HCL PF 1 MG/ML VIAL IV PUSH PRN (19:55)
[2017-06-25 21:37] LABS: INTERNATIONAL NORMALIZED RATIO 1.5 RATIO; PROTHROMBIN TIME - PATIENT 17.4 SEC (9.8-11.6)
[2017-06-26] VITALS (10 sets, daily range): BP systolic 117–151; BP diastolic 51–76; PULSE 72–87; RESP 16–22; TEMP 96.2–98.2; O2SAT 92–93
[2017-06-26] MEDS: GABAPENTIN 100 MG CAP PO SCH ×4 (00:10→17:09)
[2017-06-26] MEDS: CLINDAMYCIN 150 MG CAP PO SCH ×4 (00:11→17:10)
[2017-06-26] MEDS: HYDROmorphone HCL PF 1 MG/ML VIAL IV PUSH PRN ×2 (00:12→03:45)
[2017-06-26 04:44] LABS: APTT (PATIENT) 39.3 SEC (24.3-30.1); INTERNATIONAL NORMALIZED RATIO 1.5 RATIO; PROTHROMBIN TIME - PATIENT 16.7 SEC (9.8-11.6)
[2017-06-26 05:01] LABS: POTASSIUM 3.4 MEQ/L (3.5-5.1)
[2017-06-26] MEDS: INSULIN ASPART SUPPLEMENTAL SCALE SQ SCH ×3 (08:00→17:00)
[2017-06-26] MEDS: LEVOFLOXACIN 750 MG TAB PO SCH (09:38)
[2017-06-26] MEDS: SODIUM CHLORIDE 0.9% FLUSH 10 ML FLUSH IV FLUSH SCH (09:38)
[2017-06-26] MEDS: VENLAFAXINE HCL XR 75 MG CAP PO SCH (09:38)
[2017-06-26] MEDS: PRIMIDONE 50 MG TAB PO SCH ×3 (09:39→17:09)
[2017-06-26] MEDS: DOCUSATE SODIUM 50 MG/SENNA 8.6 MG TAB PO SCH (09:39)
[2017-06-26] MEDS: POTASSIUM CHLORIDE 10 MEQ CAP PO SCH (09:39)
[2017-06-26] MEDS: DILTIAZEM-CD 240 MG CAP ER PO SCH (09:39)
[2017-06-26] MEDS: FUROSEMIDE 20 MG TAB PO SCH (09:39)
[2017-06-26] MEDS: SPIRONOLACTONE 25 MG TAB PO SCH (09:39)
[2017-06-26] MEDS: PREGABALIN 100 MG CAP PO SCH ×3 (09:40→17:09)
[2017-06-26] MEDS: LACTIC ACID (AMMONIUM LACTATE) 12% LOTION 225 GM BTL TOPICAL SCH (09:40)
[2017-06-26] MEDS ORDERED: CLIN150 PO (10:17)
[2017-06-26] MEDS ORDERED: ENOX150I SQ (10:17)
[2017-06-26] MEDS ORDERED: LEVA750T9 PO (10:17)
[2017-06-26] MEDS ORDERED: OXYC-392 PO (10:17)
--- NOTE | 2017-06-26 10:19 | HHI.DCPOC ---
Discharge Care Plan Diagnosis: (1) Port catheter in place (2) Type 2 diabetes mellitus (3) COPD (chronic obstructive pulmonary disease) (4) Venous stasis dermatitis of right lower extremity (5) Cellulitis of right leg (6) History of TIA (transient ischemic attack) (7) Infection associated with lymphedema (8) CVA (cerebral infarction) Goals to Promote Your Health * To prevent worsening of your condition and complications * To maintain your health at the optimal level Directions to Meet Your Goals Take your medications as prescribed Follow your dietary instruction Follow activity as directed Keep your appointments as scheduled Take your immunizations and boosters as scheduled If your symptoms worsen call your PCP, if no PCP go to Urgent Care Center or Emergency Room Smoking is Dangerous to Your Health. Avoid second hand smoke Call the 24-hour hour crisis hotline for domestic abuse at Forrest Sherman DO Jun 26, 2017 10:19
--- NOTE | 2017-06-26 10:34 | HHI.DS ---
Discharge Summary Admission Date Jun 20, 2017 at 01:21 Discharge Date: Jun 26, 2017 Admitting Diagnosis Cellulitis (1) Cellulitis of right leg ICD Code: L03.115 - Cellulitis of right lower limb Diagnosis: Principal Status: Acute (2) Venous stasis dermatitis of right lower extremity ICD Code: I87.2 - Venous stasis dermatitis of right lower extremity Status: Acute (3) Type 2 diabetes mellitus ICD Code: E11.9 - Type 2 diabetes mellitus without complications Status: Chronic (4) History of DVT (deep vein thrombosis) ICD Code: Z86.718 - History of DVT (deep vein thrombosis) Status: Chronic (5) Coronary artery disease ICD Code: I25.10 - Coronary artery disease Status: Chronic (6) COPD (chronic obstructive pulmonary disease) ICD Code: J44.9 - Chronic obstructive pulmonary disease, unspecified Status: Chronic (7) Atrial fibrillation ICD Code: I48.91 - Atrial fibrillation Status: Chronic (8) Seizure disorder ICD Code: G40.909 - Seizure disorder Status: Chronic (9) Hyperlipidemia ICD Code: E78.5 - Hyperlipidemia, unspecified Status: Chronic Procedures Port was replaced Brief History - From Admission Written by Julissa Fernandes, acting as scribe for Dr. Ruiz on 06/20/17 at 03:39. "That black spot is starting to eat into the skin" Treated with Dalvance in ED 2 weeks ago Not taking any antibiotics currently. Progressively worsening right coates pain accompanied by nausea not relieved with Morphine 2 mg IV The patient states that he is concerned that he will lose right leg and he does not want to Denies chest pain, shortness of breath, dizziness, or vomiting CBC/BMP: 06/24/17 0718 06/26/17 0410 Significant Findings Laboratory Tests Test 06/24/17 07:18 06/25/17 06:41 06/25/17 13:27 06/25/17 20:10 Red Blood Count 3.74 MIL/MM3 (4.50-5.90) Hemoglobin 8.8 GM/DL (13.0-17.0) Hematocrit 29.4 % (39.0-51.0) Mean Corpuscular Volume 78.5 FL (80.0-100.0) Mean Corpuscular Hemoglobin 23.6 PG (27.0-34.0) Mean Corpuscular Hemoglobin Concent 30.1 % (32.0-36.0) Red Cell Distribution Width 18.5 % (11.6-17.2) Prothrombin Time 26.0 SEC (9.8-11.6) 18.8 SEC (9.8-11.6) 18.6 SEC (9.8-11.6) 17.4 SEC (9.8-11.6) Blood Urea Nitrogen 6 MG/DL (7-18) Creatinine 0.57 MG/DL (0.60-1.30) Random Glucose 65 MG/DL (74-106) Calcium Level 8.2 MG/DL (8.5-10.1) Carbon Dioxide Level 36.0 MEQ/L (21.0-32.0) Activated Partial Thromboplast Time 36.6 SEC (24.3-30.1) 36.0 SEC (24.3-30.1) Test 06/26/17 04:10 Prothrombin Time 16.7 SEC (9.8-11.6) Activated Partial Thromboplast Time 39.3 SEC (24.3-30.1) Potassium Level 3.4 MEQ/L (3.5-5.1) Carbon Dioxide Level 38.0 MEQ/L (21.0-32.0) Anion Gap 4 MEQ/L (5-15) Imaging Last Impressions Chest X-Ray 06/22/17 0000 Signed Impressions: Service Date/Time: Thursday, June 22, 2017 16:12 - CONCLUSION: Possible mild cardiac decompensation Jorge Alberto Guzman MD Venous Access Device Injection 06/20/17 0000 Signed Impressions: Service Date/Time: June 12:42 - CONCLUSION: I do not clearly see a disruption of the port catheter, however contrast spills into the subcutaneous tract around the proximal catheter tubing and into the tissues of the low neck. There may be a disconnection or disruption at the tubing/ reservoir interface. The port will need to be replaced. Jorge Alberto Guzman MD PE at Discharge GENERAL: This is an obese male patient, in no apparent distress. SKIN: Right coates with erythema and induration. Improving. Right leg with elephantiasis. HEAD: Atraumatic. Normocephalic. EYES: No scleral icterus. No injection or drainage. ENT: Nose without bleeding, purulent drainage. Airway patent. NECK: Trachea midline. No JVD. CARDIOVASCULAR: Regular rate and rhythm without murmurs, gallops, or rubs. Left AKA. RESPIRATORY: Clear to auscultation. Breath sounds equal bilaterally. No wheezes , rales, or rhonchi. GASTROINTESTINAL: Abdomen soft, non-tender, nondistended. No hepato-splenomegaly , or palpable masses. No guarding. MUSCULOSKELETAL: Extremities without clubbing, cyanosis. Right leg with elephantiasis. Tender to palpation. NEUROLOGICAL: Awake and alert. Motor and sensory grossly within normal limits. Normal speech. PSYCH: Mood and affect appropriate. Hospital Course Cellulitis of the right lower extremity The pt failed outpatient Dalvance therapy. 05/29/17 wound culture positive for MRSA, pseudomonas (not sensitive to Vancomycin) and group b beta strep. Antibiotics initially were vancomycin and Zosyn. Lactic acid level was 3.3, WBC 14.1 with neutrophilia. We consulted infectious disease. Blood cultures with no growth. We consulted wound care nurse for assistance, who recommended to cleanse wound to R coates with wound cleanser; Apply optifoam AG gentle over wound bed; May cut foam to fit over wound bed; Secure dressing with rolled gauze and tape; Change dressing daily or PRN if saturated or dislodged. The pt will have home health care upon discharge. He received pain control with a bowel regimen. Antibiotics were changed to Levaquin and clindamycin per ID to complete a course. Malfunctioning port Imaging per interventional radiology revealed a malfunctioning port. Port was ordered to be replaced. Coumadin was held and he was placed on a heparin gtt. INR 1.5 06/26, and the pt's port was replaced. History of DVT/ CVA On Coumadin. Coumadin was held for port placement. He was placed on a heparin gtt. Will resume Coumadin at the time of discharge along with a Lovenox bridge. COPD Breathing is stable. On 4L NC. Normally on 2-3 L NC at home. He received Duonebs as needed. Pt Condition on Discharge: Stable Discharge Disposition: Disch w/ Home Health Serv Discharge Time: > 30 minutes Discharge Instructions DIET: Follow Instructions for: Coumadin (Warfarin) Diet Activities you can perform: Weight Bearing as Sonny Follow up Referrals: PCP Follow-up - 3-5 Days New Orders: PT/INR - 06/27/17 PT/INR - 06/28/17 PT/INR - 06/29/17 PT/INR - 06/30/17 PT/INR - 07/01/17 New Medications: Enoxaparin Inj (Enoxaparin Inj) 150 Mg/Ml Syr 140 MG SQ BID for Blood Clot Prevention for 7 Days, SYRINGE 0 Refills Clindamycin (Cleocin) 150 Mg Cap 300 MG PO Q6H for Infection for 7 Days, #56 CAP Levofloxacin (Levaquin) 750 Mg Tablet 750 MG PO DAILY for Infection, #7 TAB Oxycodone (Oxycodone) 5 Mg Tab 5 MG PO Q6HR PRN for PAIN SCALE 1 TO 10, #14 TAB Continued Medications: Baclofen (Baclofen) 10 Mg Tab 10 MG PO TID for Muscle Spasm, TAB 0 Refills Diltiazem CD 24 HR (Diltiazem CD 24 HR) 240 Mg Caper 240 MG PO DAILY, #30 CAP 0 Refills Furosemide (Lasix) 20 Mg Tab 20 MG PO DAILY for edema, #30 TAB 0 Refills Gabapentin (Gabapentin) 100 Mg Cap 100 MG PO Q6HR, #90 CAP 0 Refills Glipizide (Glipizide) 10 Mg Tab 20 MG PO BID for Blood Sugar Management, #60 TAB 0 Refills Take 30 minutes before a meal Metformin (Metformin) 500 Mg Tab 1000 MG PO DAILY IN THE PM for Blood Sugar Management, #60 TAB 0 Refills Nystatin Topical (Nystatin Topical) 100,000 unit/gm Oint 1 APPLIC TOPICAL Q12HR for Fungal Infection, #1 TUBE Oxygen (O2) (Oxygen (O2)) Device LITER TI.CANULA CONTINUOUS for Prevent Hypoxemia, #2 Oxygen Concentrator Portable Gaseous 2 L/min via Nasal Canula Continuous For 99 months Potassium Chloride ER (Potassium Chloride ER) 10 Meq Cap 10 MEQ PO DAILY for Electrolyte Replacement, #30 CAP 0 Refills Pravastatin (Pravastatin) 20 Mg Tab 20 MG PO HS for Cholesterol Management, #30 TAB 0 Refills Pregabalin (Lyrica) 100 Mg Cap 100 MG PO TID, #90 CAP 0 Refills Primidone (Primidone) 50 Mg Tab 50 MG PO TID for Control Seizures, #60 TAB 0 Refills Spironolactone (Spironolactone) 25 Mg Tab 25 MG PO DAILY, #30 TAB 0 Refills Venlafaxine ER 24 HR (Venlafaxine ER 24 HR) 150 Mg Tab 300 MG PO DAILY, #30 TAB 0 Refills Warfarin (Warfarin) 5 Mg Tab 5 MG PO DAILY for Blood Clot Prevention, #30 TAB 0 Refills Forrest Sherman DO Jun 26, 2017 10:34
[2017-06-26] MEDS ORDERED: MIDAZOLAM HCL 5 MG/5 ML VIAL ONE (12:29)
--- NOTE | 2017-06-26 15:20 | RADRPT ---
EXAM DATE/TIME: 06/26/2017 00:00 [facility] COMPARISON: No previous studies available for comparison.8 INDICATIONS : Patient presents with cellulitis in need of left sided port placement for access and port removal on the right side. 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 SEDATION TIME: 60 minutes 1.) 5 mg midazolam (Versed) IV 2.) 225 mcg fentanyl (Sublimaze) IV Prophylactic antibiotics were administered with appropriate pre-procedure timing. Vancomycin within 2 hrs of procedure, Ancef (or alternative) within 1 hr of procedure. PROCEDURE : 1. Removal of [id number]. 2. Conscious sedation with continuous EKG and oximetry monitoring. The risk, benefits and potential complications of [id number] removal were discussed. Written conse nt was obtained. The patient was placed supine. The chest wall was prepped in sterile fashion. Full sterile techniqu e was used, including cap, mask, sterile gloves and gown, and a large sterile sheet. Hand hygiene an d 2% chlorhexidine and/or Betadine/alcohol prep was utilized per protocol for cutaneous antisepsis. The skin and subcutaneous tissues were infiltrated with local anesthetic solution. A small incision w as made, the subcutaneous pocket was opened. The port was dissected from the subcutaneous tissues and easily removed in one piece. The pocket incision was closed with subcuticular Vicryl suture. Steri -Strips were applied. Conscious sedation was performed with the prescribed dosages and duration as above in the presence of an independent trained radiology nurse to assist in the monitoring of the patient. EKG and oximetry remained stable throughout the procedure. The patient tolerated the procedure well and there were no complications. The patient was sent to post anesthesia recovery in stable condition. CONCLUSION: Uncomplicated port removal as above. Roger Mccord MD on June 26, 2017 at 15:18 Board Certified Radiologist. This report was verified electronically.
--- NOTE | 2017-06-26 15:28 | RADRPT ---
EXAM DATE/TIME: 06/26/2017 13:25 [facility] COMPARISON: No previous studies available for comparison. INDICATIONS : Patient presents with cellulitis in need of left sided port placement for access and port removal on the right side. 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 FLUORO TIME: 1.8 minutes IMAGE SERIES: 1 SEDATION TIME: 60 minutes ACCESS: Right internal jugular vein SEDATION: 1.) 5 mg midazolam (Versed) IV 2.) 225 mcg fentanyl (Sublimaze) IV Prophylactic antibiotics were administered with appropriate pre-procedure timing. Vancomycin within 2 hours of procedure, Ancef (or alternative) within 1 hour of procedure. DEVICE: 1. [address] [place] single lumen Smart port CT w/vortex PROCEDURE : 1. Continuous pulse oximetry and EKG monitoring. 2. Intravenous conscious sedation. 3. Ultrasound guidance for venous access. 4. Fluoroscopic guided implantable central venous port placement. The patient was placed supine. The neck was prepped in sterile fashion. Full sterile technique was u sed, including cap, mask, sterile gloves and gown, and a large sterile sheet. Hand hygiene and 2% ch lorhexidine Betadine was utilized per protocol for cutaneous antisepsis with appropriate dry time for site. Sterile gel and sterile probe cover were utilized for ultrasound guidance. The skin and sub cutaneous tissues were infiltrated with local anesthetic solution. Under direct ultrasound guidance, central venous access was accomplished in the targeted vessel. The ultrasound images depicting access guidance were stored and saved to PACS for permanent record. A s ubcutaneous pocket was created using blunt dissection. The port was introduced to the pocket. The c atheter tubing was fed through a subcutaneous tunnel to the venotomy site. The catheter tubing was c ut to a suitable length and then was introduced through a valved Peel-Away sheath and positioned with catheter tubing tip at the cavo-atrial junction level. The pocket incision was closed with subcutic ular Vicryl suture. Steri-Strips were applied. The port was flushed and locked with heparin solutio n per protocol. Sterile dressing was applied to the site. The patient tolerated the procedure well. Conscious sedation was performed with the prescribed dosages and duration as above in the presence of an independent trained radiology nurse to assist in the monitoring of the patient. EKG and oximetry remained stable throughout the procedure. The patient tolerated the procedure well and there were no complications. The patient was sent to post anesthesia recovery in stable condition. CONCLUSION: Uncomplicated ultrasound and fluoroscopic guided implanted central venous port catheter placement as described in detail above. An 8 Slovenian Power port was placed. Roger Mccord MD on June 26, 2017 at 15:27 Board Certified Radiologist. This report was verified electronically.
== END 2017-06-26 17:25 | disposition home health service (06) | DRG 580 ==
LOC: NEPC 22:18 → NEDA 06-20 01:21 → NEDH 06-20 06:44 → HCIN 06-20 08:14 → N07B 06-22 19:29
PROVIDERS: ADMIT Hospitalist; ATTEND Hospitalist
PROC: 0JPT0WZ Removal of Totally Implantable Vascular Access Device from Trunk Subcutaneous Tissue and Fascia, Open Approach (ICD-10-PCS; principal; 2017-06-26)
PROC: 0JH60WZ Insertion of Totally Implantable Vascular Access Device into Chest Subcutaneous Tissue and Fascia, Open Approach (ICD-10-PCS; 2017-06-26)
PROC: 02HV33Z Insertion of Infusion Device into Superior Vena Cava, Percutaneous Approach (ICD-10-PCS; 2017-06-26)
DX: L03.115 Cellulitis of right lower limb (principal); I42.9 Cardiomyopathy, unspecified; E11.622 Type 2 diabetes mellitus with other skin ulcer; I11.0 Hypertensive heart disease with heart failure; I50.9 Heart failure, unspecified; E66.01 Morbid (severe) obesity due to excess calories; I48.91 Unspecified atrial fibrillation; G25.0 Essential tremor; L97.819 Non-pressure chronic ulcer of other part of right lower leg with unspecified severity; Z99.81 Dependence on supplemental oxygen; J44.9 Chronic obstructive pulmonary disease, unspecified; Z89.612 Acquired absence of left leg above knee; E78.5 Hyperlipidemia, unspecified; F17.210 Nicotine dependence, cigarettes, uncomplicated; Z79.01 Long term (current) use of anticoagulants; I89.0 Lymphedema, not elsewhere classified; Z86.73 Personal history of transient ischemic attack (TIA), and cerebral infarction without residual deficits; M19.90 Unspecified osteoarthritis, unspecified site; Z86.718 Personal history of other venous thrombosis and embolism; I25.10 Atherosclerotic heart disease of native coronary artery without angina pectoris; I87.2 Venous insufficiency (chronic) (peripheral)
CPT/HCPCS: 36561; 36590; 36598; 71010; 76937; 77001; 80048; 80202; 82140; 82565; 82607; 82728; 82746; 82948; 83540; 83550; 83605; 83735; 84443; 85025; 85027; 85610; 85730; 87040; 94664; 96361; 96365; 96375; 99152; 99153; A9579; C1769; C1788; J1170; J1642; J1644; J1815; J2250; J2270; J2405; J2543; J3010; J3370; J7030; J7040; J7050

== ENCOUNTER 2017-11-01 07:26 | Inpatient (IN) | payer OTHER, MEDICARE ==
[2017-11-01] VITALS (9 sets, daily range): BP systolic 122–177; BP diastolic 58–106; PULSE 72–103; RESP 17–20; TEMP 95.8–97.3; O2SAT 91–99
[~2017-11-01] VITALS: Ht 188 cm; Wt 143.6 kg
[~2017-11-01 07:26] MED LIST changes: -CEPH-460 PO; +CLIN150 PO; -DILT-64 PO; +DILT240C44 PO; +ENOX150I SQ; -LEVA500T20 PO; +LEVA750T9 PO; +OXYC-392 PO
[2017-11-01] MEDS ORDERED: VANCOMYCIN INJ 1,000 MG in SODIUM CHLOR 0.9% 250 ML INJ 250 ML IV ONE (07:45)
[2017-11-01] MEDS ORDERED: methylPREDNISolone SOD SUCC 125 MG/2 ML VIAL IV PUSH ONE (07:45)
--- NOTE | 2017-11-01 07:48 | PD ---
HPI Chief Complaint: General Weakness Time Seen by Provider: 07:34 Travel History International Travel<30 days: No Contact w/Intl Traveler<30days: No Traveled to known affect area: No History of Present Illness HPI 62-year-old male with history of CHF, COPD on 2 L home O2, diabetes, left leg amputation, brought in by embolus from home for depressed mental status. According to EMS the patient's family reported that since 11 PM the patient has not been acting like himself. They report that he is awake and alert in a GCS of 15 on their arrival. Patient reports worsening right lower extremity pain and infection. He denies fevers. No chest pain or dyspnea. PFSH Past Medical History Hx Anticoagulant Therapy: Yes Arthritis: Yes (OA) Asthma: No Atrial Fibrillation: Yes Autoimmune Disease: No Blood Disorders: Yes (PT. HAS HISTORY OF BLOOD CLOTS.) Anxiety: No Depression: No Heart Rhythm Problems: Yes Cardiac Catheterization: Yes Cardiomyopathy: Yes Cardiovascular Problems: Yes ([place]) High Cholesterol: Yes Chemotherapy: No Chest Pain: Yes Congestive Heart Failure: Yes COPD: Yes Cerebrovascular Accident: Yes (TIA) Coronary Artery Disease: Yes Diabetes: Yes Diminished Hearing: No Deep Vein Thrombosis: Yes Endocrine: Yes Gastrointestinal Disorders: No GERD: No Glaucoma: No Genitourinary: No Headaches: Yes Hepatitis: No Hiatal Hernia: No Heparin Induced Thrombocytopen: No Hypertension: Yes Immune Disorder: No Implanted Vascular Access Dvce: Yes (PORT RIGHT CHEST WALL) Kidney Stones: No Neurologic: Yes (BRAIN SURGERY, ANEURYSM CLIPPED IN 1990, ESSENTIAL TREMORS) Psychiatric: No Reproductive: No Respiratory: Yes (COPD) Integumentary: Yes (CELLULITIS, WOUND RN DAILY ) Migraines: Yes Myocardial Infarction: Yes (X 2) Radiation Therapy: No Renal Failure: No Sickle Cell Disease: No Sleep Apnea: Yes Thyroid Disease: No Ulcer: No Past Surgical History Abdominal Surgery: Yes (APPENDECTOMY 1954) AICD: No Appendectomy: Yes Arteriovenous Shunt: No Body Medical Devices: BRAIN CLIPS, INFUSAPORT TO RIGHT CHEST Cardiac Surgery: No Cholecystectomy: No Ear Surgery: No Endocrine Surgery: No Eye Surgery: No Genitourinary Surgery: No Gynecologic Surgery: No Insulin Pump: No Joint Replacement: No Neurologic Surgery: Yes (BRAIN ANURYSIM CLIPPED IN 1990.) Oral Surgery: No Pacemaker: No Thoracic Surgery: Yes (TENSION PNEUMOTHORAX-CHEST TUBE --RIGHT 71) Tonsillectomy: Yes (1956) Other Surgery: Yes (brain and back sx) Social History Alcohol Use: No Tobacco Use: Yes (4 cig a day) Substance Use: No Allergies-Medications (Allergen,Severity, Reaction): Coded Allergies: MRI PRECAUTION (Verified Allergy, Severe, ANEURSYM CLIPPING, 06/19/17) diatrizoate meglumine (Unverified Allergy, Severe, SHOCK, 06/19/17) gadobenic acid (Unverified Allergy, Severe, SHOCK, 06/19/17) gadodiamide (Unverified Allergy, Severe, SHOCK, 06/19/17) gadoteridol (Unverified Allergy, Severe, SHOCK, 06/19/17) iodine (Unverified Allergy, Severe, 06/19/17) iodixanol (Unverified Allergy, Severe, SHOCK, 06/19/17) iohexol (Unverified Allergy, Severe, SHOCK, 06/19/17) potassium iodide (Unverified Allergy, Severe, 06/19/17) povidone-iodine (Unverified Allergy, Severe, 06/19/17) sodium iodide (Unverified Allergy, Severe, 06/19/17) sodium iodide (Unverified Allergy, Severe, 06/19/17) Reported Meds & Prescriptions Reported Meds & Active Scripts Active Oxygen (O2) Device Liter TI.CANULA CONTINUOUS Oxygen Concentrator Portable Gaseous 2 L/min via Nasal Canula Continuous For 99 months Reported Diphenhydramine (Diphenhydramine HCl) 25 Mg Cap 25 Mg PO HS PRN Folic Acid 0.8 Mg Tab 1,000 Mcg PO DAILY Aspirin 81 Mg Chew 81 Mg CHEW DAILY Ferrous Sulfate 325 Mg (65 Mg Iron) Tablet 325 Mg PO TIDPC Warfarin 5 Mg Tab 5 Mg PO DAILY Glipizide 10 Mg Tab 20 Mg PO BID Take 30 minutes before a meal Venlafaxine ER 24 HR (Venlafaxine HCl) 150 Mg Tab 300 Mg PO DAILY Diltiazem CD 24 HR 240 Mg Caper 240 Mg PO DAILY Primidone 50 Mg Tab 50 Mg PO TID Pravastatin 20 Mg Tab 20 Mg PO HS Metformin (Metformin HCl) 500 Mg Tab 1,000 Mg PO DAILY IN THE PM Spironolactone 25 Mg Tab 25 Mg PO DAILY Review of Systems Except as stated in HPI: all other systems reviewed are Neg Physical Exam Narrative GENERAL: Well-developed, well-nourished, overweight, awake, alert, no apparent distress. SKIN: Focused skin assessment warm/dry. Right lower extremity with significant edema with open wounds anteriorly with purulent drainage and surrounding warmth and erythema. There is no crepitus. No fluctuance. HEAD: Atraumatic. Normocephalic. EYES: Pupils equal and round. No scleral icterus. No injection or drainage. ENT: No nasal bleeding or discharge. Mucous membranes pink and moist. NECK: Trachea midline. No JVD. CARDIOVASCULAR: Regular rate and rhythm. No murmur appreciated. RESPIRATORY: No accessory muscle use. Mild inspiratory and expiratory wheezes bilaterally. No rales or rhonchi. Breath sounds equal bilaterally. GASTROINTESTINAL: Abdomen soft, non-tender, nondistended. Hepatic and splenic margins not palpable. MUSCULOSKELETAL: Left leg amputation. Right leg skin exam as above. NEUROLOGICAL: Awake and alert. No obvious cranial nerve deficits. Motor grossly within normal limits. Normal speech. PSYCHIATRIC: Appropriate mood and affect; insight and judgment normal. Data Data Last Documented VS Vital Signs Date Time Temp Pulse Resp B/P (MAP) Pulse Ox O2 Delivery O2 Flow Rate FiO2 11/01/17 10:00 87 17 156/72 (100) 97 Nasal Cannula 2.00 11/01/17 07:33 97.3 Orders Orders Sepsis Workup Initiated (11/01/17 ) Complete Blood Count With Diff (11/01/17 07:36) Comprehensive Metabolic Panel (11/01/17 07:36) Prothrombin Time / Inr (Pt) (11/01/17 07:36) Act Partial Throm Time (Ptt) (11/01/17 07:36) Lactic Acid Sepsis Protocol (11/01/17 07:36) Urinalysis - C+S If Indicated (11/01/17 07:36) Influenzae A/B Antigen (11/01/17 07:36) Blood Culture (11/01/17 07:36) Chest, Single Ap (11/01/17 07:36) Ecg Monitoring (11/01/17 07:36) Iv Access Insert/Monitor (11/01/17 07:36) Oximetry (11/01/17 07:36) Oxygen Administration (11/01/17 07:36) Ct Brain W/O Iv Contrast(Rout) (11/01/17 07:36) Methylprednisolone So Succ Inj (Solumedr (11/01/17 07:45) Albuterol-Ipratropium Neb (Duoneb Neb) (11/01/17 07:45) Vancomycin Inj (Vancomycin Inj) (11/01/17 07:45) Electrocardiogram (11/01/17 07:38) B-Type Natriuretic Peptide (11/01/17 07:38) Ckmb (Isoenzyme) Profile (11/01/17 07:38) Troponin I (11/01/17 07:38) Tibia/Fibula (Ap/Lat) (11/01/17 ) Arterial Blood Gas (Abg) (11/01/17 ) Urine Culture (11/01/17 09:25) Labs Laboratory Tests Test 11/01/17 07:50 11/01/17 09:00 11/01/17 09:25 White Blood Count 11.5 TH/MM3 Red Blood Count 3.81 MIL/MM3 Hemoglobin 9.4 GM/DL Hematocrit 29.7 % Mean Corpuscular Volume 77.9 FL Mean Corpuscular Hemoglobin 24.5 PG Mean Corpuscular Hemoglobin Concent 31.5 % Red Cell Distribution Width 17.9 % Platelet Count 359 TH/MM3 Mean Platelet Volume 7.8 FL Neutrophils (%) (Auto) 63.0 % Lymphocytes (%) (Auto) 24.7 % Monocytes (%) (Auto) 7.9 % Eosinophils (%) (Auto) 3.3 % Basophils (%) (Auto) 1.1 % Neutrophils # (Auto) 7.2 TH/MM3 Lymphocytes # (Auto) 2.8 TH/MM3 Monocytes # (Auto) 0.9 TH/MM3 Eosinophils # (Auto) 0.4 TH/MM3 Basophils # (Auto) 0.1 TH/MM3 CBC Comment DIFF FINAL Differential Comment Prothrombin Time 18.0 SEC Prothromb Time International Ratio 1.8 RATIO Activated Partial Thromboplast Time 34.1 SEC Blood Urea Nitrogen 13 MG/DL Creatinine 0.81 MG/DL Random Glucose 78 MG/DL Total Protein 8.4 GM/DL Albumin 2.7 GM/DL Calcium Level 8.5 MG/DL Alkaline Phosphatase 54 U/L Aspartate Amino Transf (AST/SGOT) 14 U/L Alanine Aminotransferase (ALT/SGPT) 7 U/L Total Bilirubin 0.3 MG/DL Sodium Level 136 MEQ/L Potassium Level 4.0 MEQ/L Chloride Level 101 MEQ/L Carbon Dioxide Level 29.0 MEQ/L Anion Gap 6 MEQ/L Estimat Glomerular Filtration Rate 96 ML/MIN Lactic Acid Level 1.1 mmol/L Total Creatine Kinase 76 U/L Troponin I LESS THAN 0.02 NG/ML B-Type Natriuretic Peptide 46 PG/ML Blood Gas Puncture Site RT RADIAL Blood Gas Patient Temperature 98.6 Blood Gas HCO3 29 mmol/L Blood Gas Base Excess 4.3 mmol/L Blood Gas Oxygen Saturation 93 % Arterial Blood pH 7.37 Arterial Blood Partial Pressure CO2 52 mmHg Arterial Blood Partial Pressure O2 92 mmHG Arterial Blood Oxygen Content 11.9 Vol % Arterial Blood Carboxyhemoglobin 4.4 % Arterial Blood Methemoglobin 0.7 % Blood Gas Hemoglobin 9.0 G/DL Oxygen Delivery Device NASAL CANNULA Blood Gas Liter Flow 3 L/M Urine Color YELLOW Urine Turbidity HAZY Urine pH 5.5 Urine Specific [place] 1.011 Urine Protein NEG mg/dL Urine Glucose (UA) NEG mg/dL Urine Ketones NEG mg/dL Urine Occult Blood TRACE Urine Nitrite POS Urine Bilirubin NEG Urine Urobilinogen LESS THAN 2.0 MG/DL Urine Leukocyte Esterase LARGE Urine RBC 6 /hpf Urine WBC /hpf Urine WBC Clumps RARE Urine Squamous Epithelial Cells 1 /hpf Urine Bacteria MANY /hpf Urine Mucus FEW /lpf Microscopic Urinalysis Comment CATH-CULTURE IND MDM Medical Decision Making Medical Screen Exam Complete: Yes Emergency Medical Condition: Yes Medical Record Reviewed: Yes Differential Diagnosis Cellulitis, necrotizing fasciitis, intracranial abnormality, metabolic abnormality, hypercarbia Narrative Course Initial vital signs show heart rate 77, blood pressure 135/72, pulse ox 97% on 2 L nasal cannula, oral temp of 97.3F. CBC: WBC 11.5, hemoglobin 9.4, hematocrit 29.7, platelets 359. This is the patient's baseline anemia. CMP is unremarkable. Lactic acid is 1.1. Cardiac enzymes are negative. BNP is 46. INR is 1.8. Influenza is negative. Chest x-ray: No acute abnormality. Stable compared to previous. CT head: CONCLUSION: 1. Stable postsurgical features of prior right cerebral aneurysm clipping. 2. Senescent changes with mild to moderate small vessel periventricular white matter demyelination. 3. No acute abnormality or significant interval change. Right leg x-ray: CONCLUSION: 1. Diffuse soft tissue swelling. 2. No acute bony abnormality. ABG on 2 L nasal cannula shows a PCO2 of 51.6, PO2 of 91.6. Upon arrival the patient was fully awake and alert. On reassessment the patient is somnolent, arousable only to deep painful stimulation. His airway is protected. He was given a dose of 1 g of IV vancomycin for his right lower extremity cellulitis. He will be admitted for further treatment and evaluation of right leg cellulitis and altered mental status. Case discussed with hospitalist Dr. Rutherford who will admit the patient to his service. Diagnosis Primary Impression: Cellulitis of right leg Additional Impression: Altered mental status Qualified Codes: R41.82 - Altered mental status, unspecified Admitting Information Admitting Physician Requests: it Guicho Fuentes MD Nov 01, 2017 07:48
--- NOTE | 2017-11-01 08:11 | RADRPT ---
EXAM DATE/TIME: 11/01/2017 07:55 [facility] COMPARISON: CHEST SINGLE AP, June 22, 2017, 16:12. INDICATIONS : Chest pain. MEDICAL HISTORY : Diabetes mellitus type II. Chronic obstructive pulmonary disease. Cardiovascular disease. SURGICAL HISTORY : Infusaport ENCOUNTER: Initial ACUITY: 1 day PAIN SCORE: 8/10 LOCATION: Bilateral chest FINDINGS: There is an [id number] in place in the left chest. The heart is normal in size. The lungs appear clear. No pneumothorax is present. The mediastinal cont ours are within normal limits. The appearance of the parenchyma similar to the previous dated 06/22/17 . The visualized bony structures demonstrate degenerative changes the acromioclavicular joints but are otherwise intact. CONCLUSION: 1. No acute abnormality identified. Stable compared to previous dated 06/22/17. Foster Whitaker MD on November 01, 2017 at 8:09 Board Certified Radiologist. This report was verified electronically.
[2017-11-01 08:12] LABS: AUTOMATED NEUTROPHIL # 7.2 TH/MM3 (1.8-7.7); BASOPHIL # 0.1 TH/MM3 (0-0.2); BASOPHIL % 1.1 % (0.0-2.0); EOSINOPHIL # 0.4 TH/MM3 (0-0.4); EOSINOPHIL % 3.3 % (0.0-4.0); HEMATOCRIT 29.7 % (39.0-51.0); HEMOGLOBIN 9.4 GM/DL (13.0-17.0); LYMPH % 24.7 % (9.0-44.0); LYMPHOCYTE # 2.8 TH/MM3 (1.0-4.8); MEAN CELL VOLUME 77.9 FL (80.0-100.0); MEAN CORPUSCULAR HEMOGLOBIN 24.5 PG (27.0-34.0); MEAN CORPUSCULAR HGB CONC 31.5 % (32.0-36.0); MEAN PLATELET VOLUME 7.8 FL (7.0-11.0); MONO % 7.9 % (0.0-8.0); MONOCYTE # 0.9 TH/MM3 (0-0.9); PLATELET COUNT 359 TH/MM3 (150-450); RED BLOOD COUNT 3.81 MIL/MM3 (4.50-5.90); RED CELL DISTRIBUTION WIDTH 17.9 % (11.6-17.2); WHITE BLOOD COUNT 11.5 TH/MM3 (4.0-11.0)
--- NOTE | 2017-11-01 08:12 | RADRPT ---
EXAM DATE/TIME: 11/01/2017 07:58 [facility] COMPARISON: CHEST SINGLE AP, November 01, 2017, 7:55. INDICATIONS : Cellulitis, pain, and swelling. MEDICAL HISTORY : Diabetes mellitus type II. Chronic obstructive pulmonary disease. Cardiovascular disease. SURGICAL HISTORY : None. ENCOUNTER: Initial ACUITY: 3 weeks PAIN SCORE: 8/10 LOCATION: Right tibia FINDINGS: There is moderate tricompartmental osteoarthritis of the right knee. The osseous structures are other smith grossly intact. There is no acute fracture. There is diffuse soft tissue swelling and edematous changes within the soft tissues. No retained fore ign body is seen. CONCLUSION: 1. Diffuse soft tissue swelling. 2. No acute bony abnormality. Foster Whitaker MD on November 01, 2017 at 8:10 Board Certified Radiologist. This report was verified electronically.
[2017-11-01 08:20] LABS: INTERNATIONAL NORMALIZED RATIO 1.8 RATIO
[2017-11-01 08:26] LABS: ALBUMIN 2.7 GM/DL (3.4-5.0); ALT (GPT) 7 U/L (12-78); AST (GOT) 14 U/L (15-37); BLOOD UREA NITROGEN 13 MG/DL (7-18); CALCIUM 8.5 MG/DL (8.5-10.1); CHLORIDE 101 MEQ/L (98-107); CREATININE 0.81 MG/DL (0.60-1.30); GLOMERULAR FILTRATION RATE 96 ML/MIN (>89); GLUCOSE,RANDOM 78 MG/DL (74-106); SODIUM (NA) 136 MEQ/L (136-145)
[2017-11-01 08:28] LABS: ALKALINE PHOSPHATASE 54 U/L (45-117); TOTAL BILIRUBIN ADULT 0.3 MG/DL (0.2-1.0); TOTAL PROTEIN 8.4 GM/DL (6.4-8.2)
[2017-11-01 08:29] LABS: TROPONIN I LESS THAN 0.02 NG/ML (0.02-0.05)
--- NOTE | 2017-11-01 09:01 | RADRPT ---
EXAM DATE/TIME: 11/01/2017 08:36 [facility] COMPARISON: CT BRAIN W/O CONTRAST, April 29, 2017, 7:55. INDICATIONS : Altered mental status. RADIATION DOSE: 43.45 CTDIvol (mGy) MEDICAL HISTORY : Cardiovascular disease. Hypertension. Aneurysm clip SURGICAL HISTORY : Craniotomy. ENCOUNTER: Initial ACUITY: 1 day PAIN SCALE: 0/10 LOCATION: cranial TECHNIQUE: Multiple contiguous axial images were obtained of the head. Using automated exposure control and adj ustment of the mA and/or kV according to patient size, radiation dose was kept as low as reasonably a chievable to obtain optimal diagnostic quality images. DICOM format image data is available electro nically for review and comparison. FINDINGS: CEREBRUM: Postsurgical features of prior right temporal craniotomy with right aneurysm clipping. Mild diffuse c erebral atrophy. Mild to moderate periventricular hypodensities. The ventricles are normal for age. No evidence of midline shift, mass lesion, hemorrhage or acute infarction. No extra-axial fluid blake ections are seen. POSTERIOR FOSSA: The cerebellum and brainstem are intact. The 4th ventricle is midline. The cerebellopontine angle i s unremarkable. EXTRACRANIAL: The visualized portion of the orbits is intact. SKULL: The calvaria is intact. No evidence of skull fracture. CONCLUSION: 1. Stable postsurgical features of prior right cerebral aneurysm clipping. 2. Senescent changes with mild to moderate small vessel periventricular white matter demyelination. 3. No acute abnormality or significant interval change. Benja Steele MD on November 01, 2017 at 8:56 Board Certified Radiologist. This report was verified electronically.
[2017-11-01] MEDS ORDERED: FERR325T18 PO (09:16)
[2017-11-01] MEDS ORDERED: ASPI-516 CHEW (09:16)
[2017-11-01] MEDS ORDERED: DIPH25CA PO (09:16)
[2017-11-01] MEDS ORDERED: FOLI800T PO (09:16)
[2017-11-01] MEDS: RESP: ALBUTEROL 2.5 MG/IPRATROPIUM 0.5 MG NEB (SCH) INH ×2 (09:20→09:21)
[2017-11-01 09:40] LABS: BACTERIA, URINE MANY /hpf; BILIRUBIN, URINE NEG (NEG); BLOOD, URINE TRACE (NEG); GLUCOSE,URINE NEG (NEG); KETONE, URINE NEG (NEG); MUCUS URINE FEW /lpf (OCC); NITRITE,URINE POS (NEG); PH, URINE 5.5 (5.0-8.5); SQUAMOUS EPITHELIAL CELL URINE 1 /hpf (0-5); URINE COLOR YELLOW (YELLW/STRAW); URINE LEUKOCYTE ESTERASE LARGE (NEG); WHITE BLOOD CELL CLUMPS RARE
[2017-11-01] MEDS ORDERED: SODIUM CHLORIDE 0.9% FLUSH 10 ML FLUSH IV FLUSH PRN (10:45)
[2017-11-01] MEDS ORDERED: ONDANSETRON HCL 4 MG/2 ML VIAL IVP PRN (10:45)
[2017-11-01] MEDS ORDERED: MAGNESIUM HYDROXIDE SUSP 30 ML CUP PO PRN (10:45)
[2017-11-01] MEDS ORDERED: Vancomycin Consult Pharmacy 1 EA OTHER SCH (10:45)
[2017-11-01] MEDS ORDERED: DEXTROSE 50% IN WATER 50 ML VIAL(D50) IV PUSH PRN (10:45)
[2017-11-01] MEDS ORDERED: GLUCAGON 1 MG/ML VIAL OTHER PRN (10:45)
[2017-11-01] MEDS ORDERED: NALOXONE HCL 0.4 MG/ML AMP IV PUSH PRN (10:45)
[2017-11-01] MEDS ORDERED: ACETAMINOPHEN 325 MG TAB PO PRN ×2 (10:45)
[2017-11-01] MEDS: CEFEPIME INJ 2,000 MG in SODIUM CHLORIDE 0.9% INJ 100 ML IV SCH ×2 (12:25→18:14)
[2017-11-01] MEDS: SODIUM CHLOR 0.9% 1000 ML INJ 1,000 ML IV SCH (12:25)
[2017-11-01] MEDS: INSULIN ASPART SUPPLEMENTAL SCALE SQ SCH ×3 (12:26→22:26)
[2017-11-01] MEDS ORDERED: HEPARIN SODIUM - SQ 10,000 UNITS/ML VIAL SQ SCH (13:00)
--- NOTE | 2017-11-01 14:29 | HHI.HP ---
HPI Service [facility] Admission Diagnosis Right leg cellulitis, AMS Diagnoses: (1) Cellulitis of right foot (2) Acute metabolic encephalopathy (3) UTI (urinary tract infection) Chief Complaint: I can't remember stuff and I am falling asleep Travel History International Travel<30 Days: No Contact w/Intl Traveler <30 Da: No Traveled to Known Affected Are: No History of Present Illness 62-year-old male with a past medical history significant for HTN, DM , HLD, CAD s/p previous ME, CVA, PAD, h/o DVT on chronic anticoagulation, history of brain aneurysm status post clipping and chronic RLE lymphedema with recurrent cellulitic infection was brought to the ED for evaluation of mentation change as observed by family members since 11PM last night. When patient presented initially to the ED, he was more somnolent and appeared to fall back asleep easily and will only respond to some questions. However during my exam, patient was more alert although he would occasionally fall back to sleep. He states he could not remember stuff. Head CT on arrival was unchanged from previous study. Patient had unremarkable labs except elevated WBC. ABG with mild CO2 narcosis which is stable for him. Patient is morbidly obese and has a history of a left AKA as well as chronic lymphedema in the right lower extremity. Patient denies any associated complaints of recent illness, cough, chest pain, palpitations, shortness of breath, nausea, vomiting or abdominal pain. His last hospitalization was for recurrent right leg cellulitis. Review of Systems Except as stated in HPI: all other systems reviewed are Neg Past Family Social History Past Medical History Diabetes Mellitus Chronic right leg lymphedema Recurrent cellulitis Recurrent DVTs Hyperlipidemia Atrial fibrillation Cardiomyopathy Congestive heart failure Coronary artery disease Multiple CVAs and TIAs Endocarditis Hypertension COPD Migraines Essential tremors Osteoarthritis Degenerative disc disease . Past Surgical History Right subclavian port placement Left leg amputation Brain surgery with aneurysm clipping Fibrous tumor removed from back Knee surgery Elbow surgery Tonsillectomy Appendectomy Reported Medications Diphenhydramine (Diphenhydramine HCl) 25 Mg Cap 25 Mg PO HS PRN Folic Acid 0.8 Mg Tab 1,000 Mcg PO DAILY Aspirin 81 Mg Chew 81 Mg CHEW DAILY Ferrous Sulfate 325 Mg (65 Mg Iron) Tablet 325 Mg PO TIDPC Warfarin 5 Mg Tab 5 Mg PO DAILY Glipizide 10 Mg Tab 20 Mg PO BID Take 30 minutes before a meal Venlafaxine ER 24 HR (Venlafaxine HCl) 150 Mg Tab 300 Mg PO DAILY Diltiazem CD 24 HR 240 Mg Caper 240 Mg PO DAILY Primidone 50 Mg Tab 50 Mg PO TID Pravastatin 20 Mg Tab 20 Mg PO HS Metformin (Metformin HCl) 500 Mg Tab 1,000 Mg PO DAILY IN THE PM Spironolactone 25 Mg Tab 25 Mg PO DAILY Allergies: Coded Allergies: MRI PRECAUTION (Verified Allergy, Severe, ANEURSYM CLIPPING, 06/19/17) diatrizoate meglumine (Unverified Allergy, Severe, SHOCK, 06/19/17) gadobenic acid (Unverified Allergy, Severe, SHOCK, 06/19/17) gadodiamide (Unverified Allergy, Severe, SHOCK, 06/19/17) gadoteridol (Unverified Allergy, Severe, SHOCK, 06/19/17) iodine (Unverified Allergy, Severe, 06/19/17) iodixanol (Unverified Allergy, Severe, SHOCK, 06/19/17) iohexol (Unverified Allergy, Severe, SHOCK, 06/19/17) potassium iodide (Unverified Allergy, Severe, 06/19/17) povidone-iodine (Unverified Allergy, Severe, 06/19/17) sodium iodide (Unverified Allergy, Severe, 06/19/17) sodium iodide (Unverified Allergy, Severe, 06/19/17) Family History Patient is adopted and does not know family history from ; his son has had multiple aneurysms treated by Dr. Sepulveda Social History Tobacco: Smokes 4 cigarettes per day Alcohol: denies Illicit Drugs: denies Physical Exam Vital Signs Vital Signs Date Time Temp Pulse Resp B/P (MAP) Pulse Ox O2 Delivery O2 Flow Rate FiO2 11/01/17 13:50 95.8 95 18 122/59 (80) 96 11/01/17 13:15 11/01/17 12:00 90 17 177/80 (112) 97 Nasal Cannula 2.00 11/01/17 11:00 86 17 173/106 (128) 97 Nasal Cannula 2.00 11/01/17 10:00 87 17 156/72 (100) 97 Nasal Cannula 2.00 11/01/17 09:24 96 Nasal Cannula 3.00 11/01/17 08:50 72 17 144/95 (111) 99 Nasal Cannula 2.00 11/01/17 07:45 98 Nasal Cannula 2.00 11/01/17 07:38 98 Nasal Cannula 11/01/17 07:33 97.3 77 18 135/72 (93) 97 Physical Exam GENERAL: This is a well-nourished, well-developed obese patient, in no apparent distress. SKIN: Right coates with erythema and induration. Right leg with elephantiasis. HEAD: Atraumatic. Normocephalic. No temporal or scalp tenderness. EYES: Pupils equal round and reactive. Extraocular motions intact. No scleral icterus. No injection or drainage. ENT: Nose without bleeding, purulent drainage or septal hematoma. Throat without erythema, tonsillar hypertrophy or exudate. Uvula midline. Airway patent. NECK: Trachea midline. No JVD or lymphadenopathy. Supple, nontender, no meningeal signs. CARDIOVASCULAR: Regular rate and rhythm without murmurs, gallops, or rubs. RESPIRATORY: Clear to auscultation. Breath sounds equal bilaterally. No wheezes , rales, or rhonchi. GASTROINTESTINAL: Abdomen soft, non-tender, nondistended. No hepato-splenomegaly , or palpable masses. No guarding. MUSCULOSKELETAL: Left AKA NEUROLOGICAL: Awake and alert. Cranial nerves II through XII intact. Motor and sensory grossly within normal limits. Five out of 5 muscle strength in all muscle groups. Normal speech. Laboratory Laboratory Tests Test 11/01/17 07:50 11/01/17 09:00 11/01/17 09:25 White Blood Count 11.5 Red Blood Count 3.81 Hemoglobin 9.4 Hematocrit 29.7 Mean Corpuscular Volume 77.9 Mean Corpuscular Hemoglobin 24.5 Mean Corpuscular Hemoglobin Concent 31.5 Red Cell Distribution Width 17.9 Platelet Count 359 Mean Platelet Volume 7.8 Neutrophils (%) (Auto) 63.0 Lymphocytes (%) (Auto) 24.7 Monocytes (%) (Auto) 7.9 Eosinophils (%) (Auto) 3.3 Basophils (%) (Auto) 1.1 Neutrophils # (Auto) 7.2 Lymphocytes # (Auto) 2.8 Monocytes # (Auto) 0.9 Eosinophils # (Auto) 0.4 Basophils # (Auto) 0.1 CBC Comment DIFF FINAL Differential Comment Prothrombin Time 18.0 Prothromb Time International Ratio 1.8 Activated Partial Thromboplast Time 34.1 Blood Urea Nitrogen 13 Creatinine 0.81 Random Glucose 78 Total Protein 8.4 Albumin 2.7 Calcium Level 8.5 Alkaline Phosphatase 54 Aspartate Amino Transf (AST/SGOT) 14 Alanine Aminotransferase (ALT/SGPT) 7 Total Bilirubin 0.3 Sodium Level 136 Potassium Level 4.0 Chloride Level 101 Carbon Dioxide Level 29.0 Anion Gap 6 Estimat Glomerular Filtration Rate 96 Lactic Acid Level 1.1 Total Creatine Kinase 76 Troponin I LESS THAN 0.02 B-Type Natriuretic Peptide 46 Blood Gas Puncture Site RT RADIAL Blood Gas Patient Temperature 98.6 Blood Gas HCO3 29 Blood Gas Base Excess 4.3 Blood Gas Oxygen Saturation 93 Arterial Blood pH 7.37 Arterial Blood Partial Pressure CO2 52 Arterial Blood Partial Pressure O2 92 Arterial Blood Oxygen Content 11.9 Arterial Blood Carboxyhemoglobin 4.4 Arterial Blood Methemoglobin 0.7 Blood Gas Hemoglobin 9.0 Oxygen Delivery Device NASAL CANNULA Blood Gas Liter Flow 3 Urine Color YELLOW Urine Turbidity HAZY Urine pH 5.5 Urine Specific [place] 1.011 Urine Protein NEG Urine Glucose (UA) NEG Urine Ketones NEG Urine Occult Blood TRACE Urine Nitrite POS Urine Bilirubin NEG Urine Urobilinogen LESS THAN 2.0 Urine Leukocyte Esterase LARGE Urine RBC 6 Urine WBC Urine WBC Clumps RARE Urine Squamous Epithelial Cells 1 Urine Bacteria MANY Urine Mucus FEW Microscopic Urinalysis Comment CATH-CULTURE IND Urine Opiates Screen NEG Urine Barbiturates Screen NEG Urine Amphetamines Screen NEG Urine Benzodiazepines Screen NEG Urine Cocaine Screen NEG Urine Cannabinoids Screen NEG Date/Time Source Procedure Growth Status 11/01/17 07:50 Blood Peripheral Aerobic Blood Culture Pending Received 11/01/17 07:50 Blood Peripheral Anaerobic Blood Culture Pending Received 11/01/17 08:50 Nasal Washing Influenza Types A,B Antigen (CHEO) - Final NEGATIVE FOR FLU A AND B ANTIGEN.... Complete 11/01/17 09:25 Urine Catheterized Urine Urine Culture Pending Received Result Diagram: 11/01/17 0750 11/01/17 0750 Imaging Last Impressions Head CT 11/01/17 0736 Signed Impressions: Service Date/Time: Wednesday, November 01, 2017 08:36 - CONCLUSION: 1. Stable postsurgical features of prior right cerebral aneurysm clipping. 2. Senescent changes with mild to moderate small vessel periventricular white matter demyelination. 3. No acute abnormality or significant interval change. Benja Steele MD Chest X-Ray 11/01/17 0736 Signed Impressions: Service Date/Time: Wednesday, November 01, 2017 07:55 - CONCLUSION: 1. No acute abnormality identified. Stable compared to previous dated 06/22/17. Foster Whitaker MD Tibia/Fibula X-Ray 11/01/17 0000 Signed Impressions: Service Date/Time: Wednesday, November 01, 2017 07:58 - CONCLUSION: 1. Diffuse soft tissue swelling. 2. No acute bony abnormality. Foster Whitaker MD Septic Shock Reassessment Septic shock perfusion: reassessment completed Caprini VTE Risk Assessment Caprini VTE Risk Assessment: Mod/High Risk (score >= 2) Caprini Risk Assessment Model Point Value = 1 Point Value = 2 Point Value = 3 Point Value = 5 Age 41-60 Minor surgery BMI > 25 kg/m2 Swollen legs Varicose veins or History of unexplained or recurrent spontaneous Oral contraceptives or hormone replacement Sepsis (< 1 month) Serious lung disease, including pneumonia (< 1 month) Abnormal pulmonary function Acute myocardial infarction Congestive heart failure (< 1 month) History of inflammatory bowel disease Medical patient at bed rest Age 61-74 Arthroscopic surgery Major open surgery (> 45 min) Laparoscopic surgery (> 45 min) Malignancy Confined to bed (> 72 hours) Immobilizing plaster cast Central venous access Age >= 75 History of VTE Family history of VTE Factor V Leiden Prothrombin [id number] Lupus anticoagulant Anticardiolipin antibodies Elevated serum homocysteine Heparin-induced thrombocytopenia Other congenital or acquired thrombophilia Stroke (< 1 month) Elective arthroplasty Hip, pelvis, or leg fracture Acute spinal cord injury (< 1 month) Prophylaxis Regimen Total Risk Factor Score Risk Level Prophylaxis Regimen 0-1 Low Early ambulation 2 Moderate Order ONE of the following: *Sequential Compression Device (SCD) *Heparin 5000 units SQ BID 3-4 Higher Order ONE of the following medications: *Heparin 5000 units SQ TID *Enoxaparin/Lovenox 40 mg SQ daily (WT < 150 kg, CrCl > 30 mL/min) *Enoxaparin/Lovenox 30 mg SQ daily (WT < 150 kg, CrCl > 10-29 mL/min) *Enoxaparin/Lovenox 30 mg SQ BID (WT < 150 kg, CrCl > 30 mL/min) AND/OR *Sequential Compression Device (SCD) 5 or more Highest Order ONE of the following medications: *Heparin 5000 units SQ TID (Preferred with Epidurals) *Enoxaparin/Lovenox 40 mg SQ daily (WT < 150 kg, CrCl > 30 mL/min) *Enoxaparin/Lovenox 30 mg SQ daily (WT < 150 kg, CrCl > 10-29 mL/min) *Enoxaparin/Lovenox 30 mg SQ BID (WT < 150 kg, CrCl > 30 mL/min) AND *Sequential Compression Device (SCD) Assessment and Plan Problem List: (1) Cellulitis of right foot ICD Code: L03.115 - Cellulitis of right lower limb Status: Acute (2) UTI (urinary tract infection) ICD Code: N39.0 - Urinary tract infection, site not specified (3) Acute metabolic encephalopathy ICD Code: G93.41 - Metabolic encephalopathy Assessment and Plan 62 year-old man with Recurrent Cellulitis Right lower extremity Currently on vancomycin and cefepime IV pending culture reports Consult infectious disease Consult wound care nurse for assistance Pain management accordingly Urine tract infection Currently on IV cefepime pending urine culture Metabolic encephalopathy Head CT noted and reviewed by me without any intracranial abnormalities Likely 2/2 above infectious processes, however we'll check ammonia level History of DVT Resume warfarin with pharmacy consult for therapeutic dosing and monitoring Coronary artery disease Continue home statin, ASA COPD Duo Neb PRN Type 2 diabetes mellitus Hold home metformin Accu-Cheks before meals and at bedtime with medium dose NovoLog sliding scale coverage Atrial fibrillation Resume Coumadin per pharmacy recommendations Resume home Cardizem Seizure disorder/Tremor Resume primidone Hyperlipidemia Resume pravastatin DVT prophylaxis - Coumadin Code Status Full code Discussed Condition With Patient, ED physician Physician Certification 2 Midnight Certification Type: Admission for Inpatient Services Order for Inpatient Services The services are ordered in accordance with Medicare regulations or non- Medicare payer requirements, as applicable. In the case of services not specified as inpatient-only, they are appropriately provided as inpatient services in accordance with the 2-midnight benchmark. Estimated LOS (days): 2 days is the estimated time the patient will need to remain in the hospital, assuming treatment plan goals are met and no additional complications. Post-Hospital Plan: Not yet determined Florin Rutherford MD Nov 01, 2017 14:29
[2017-11-01] MEDS: PRIMIDONE 50 MG TAB PO SCH (18:13)
[2017-11-01] MEDS: oxyCODONE/ACETAMINOPHEN 5 MG/325 MG TAB PO PRN ×2 (18:20→22:09)
--- NOTE | 2017-11-01 19:22 | PD.WCN.NOT ---
Wound Consult Description: Received consult from Doctor Rutherford for wound management of RLE Communicated with: ARCHANA Sam RN [address] [place] [address] Recommendation: Please keep RLE elevated and float heel. Please apply skin prep to R heel and apply hydrocolloid dressing in place to prevent pressure injury When patient tolerates, please apply shaving cream to RLE and cover with warm moist towel and leave in place for 5 minutes before rinsing leg with warm water and patting dry. Apply moisturizer to RLE and leave open to air. Repeat daily Additional Information: Patient seen on for evaluation of RLE wound management. RLE presents with hard non pitting edema. hemosiderin staining and erythema.Skin is dry, hyperkeratotic, and peeling with crusting. RLE presents Venous stasis like dermatitis.Patient's R heel is boggy and slightly erythematous, but blanchable from being in contact with the mattress. There are no open wounds noted to RLE at this time. Patient was turned to R side to reveal denuded erythematous intact skin that is blanchable to L posterior upper thigh, sacral and bilateral buttocks. Cleansed patient with incontinence wipes and applied Calazime barrier cream and left open to air. Patient was then repositioned . Spoke with patient regarding applying shaving cream to RLE at this time, Patient states, "I am in to much pain right now."Attempted to offload pressure from R heel, patient could not tolerate. ARCHANA Hess administered oral pain medication. RN will apply skin prep to R heel and then apply hydrocolloid dressing to prevent pressure injury. RN will attempt offload pressure from R heel when patient can tolerate leg being lifted. Loretta Burrell [facility] Nov 01, 2017 19:22
[2017-11-01] MEDS: SODIUM CHLORIDE 0.9% FLUSH 10 ML FLUSH IV FLUSH SCH (21:00)
[2017-11-01] MEDS: VANCOMYCIN 1 GM/200 ML PREMIX IV SCH (22:08)
[2017-11-01] MEDS: LACTOBACILLUS ACIDOPHILUS TAB PO SCH (22:09)
[2017-11-01] MEDS: PRAVASTATIN SOD 20 MG TAB PO SCH (22:09)
--- NOTE | 2017-11-01 23:37 | EKG ---
Date Performed: 11/01/2017 Time Performed: 08:07:09 PTAGE: 62 years EKG: Sinus rhythm WITH FIRST DEGREE AV BLOCK NONSPECIFIC T-WAVE ABNORMALITY ABNORMAL ECG PREVIOUS TRACING : 04/29/2017 07.26 Compared to prior tracing, rate slower DOCTOR: Nuris Benoit Interpretating Date/Time 11/01/2017 23:36:00
[2017-11-02] MEDS: oxyCODONE/ACETAMINOPHEN 5 MG/325 MG TAB PO PRN ×6 (02:35→23:03)
[2017-11-02] MEDS: CEFEPIME INJ 2,000 MG in SODIUM CHLORIDE 0.9% INJ 100 ML IV SCH ×3 (02:35→18:28)
[2017-11-02] MEDS: SODIUM CHLOR 0.9% 1000 ML INJ 1,000 ML IV SCH (02:42)
[2017-11-02 04:47] VITALS: O2SAT 95
[2017-11-02] MEDS: RESP: ALBUTEROL 2.5 MG/IPRATROPIUM 0.5 MG NEB (PRN) NEB ×3 (04:47→21:26)
[2017-11-02 06:40] LABS: AUTOMATED NEUTROPHIL # 8.7 TH/MM3 (1.8-7.7); BASOPHIL % 0.4 % (0.0-2.0); HEMOGLOBIN 8.5 GM/DL (13.0-17.0); LYMPH % 12.6 % (9.0-44.0); LYMPHOCYTE # 1.4 TH/MM3 (1.0-4.8); MEAN CORPUSCULAR HEMOGLOBIN 24.5 PG (27.0-34.0); MEAN CORPUSCULAR HGB CONC 31.4 % (32.0-36.0); MONO % 5.8 % (0.0-8.0); MONOCYTE # 0.6 TH/MM3 (0-0.9); NEUT % 81.2 % (16.0-70.0); PLATELET COUNT 341 TH/MM3 (150-450); RED BLOOD COUNT 3.47 MIL/MM3 (4.50-5.90); WHITE BLOOD COUNT 10.7 TH/MM3 (4.0-11.0)
[2017-11-02 06:50] LABS: INTERNATIONAL NORMALIZED RATIO 1.6 RATIO; PROTHROMBIN TIME - PATIENT 16.4 SEC (9.8-11.6)
[2017-11-02 06:56] LABS: ALBUMIN 2.3 GM/DL (3.4-5.0); AST (GOT) 10 U/L (15-37); BICARBONATE 30.1 MEQ/L (21.0-32.0); BLOOD UREA NITROGEN 17 MG/DL (7-18); CALCIUM 8.3 MG/DL (8.5-10.1); CHLORIDE 102 MEQ/L (98-107); GLOMERULAR FILTRATION RATE 114 ML/MIN (>89); GLUCOSE,RANDOM 128 MG/DL (74-106); SODIUM (NA) 135 MEQ/L (136-145)
[2017-11-02 06:59] LABS: ALKALINE PHOSPHATASE 46 U/L (45-117); ALT (GPT) 9 U/L (12-78); TOTAL BILIRUBIN ADULT 0.3 MG/DL (0.2-1.0); TOTAL PROTEIN 7.7 GM/DL (6.4-8.2)
[2017-11-02 08:00] VITALS: BP 106/58; PULSE 89; RESP 17; TEMP 96.4; O2SAT 93
[2017-11-02] MEDS: INSULIN ASPART SUPPLEMENTAL SCALE SQ SCH ×4 (08:00→21:10)
[2017-11-02] MEDS: LACTOBACILLUS ACIDOPHILUS TAB PO SCH ×2 (08:40→21:09)
[2017-11-02] MEDS: SODIUM CHLORIDE 0.9% FLUSH 10 ML FLUSH IV FLUSH SCH ×2 (08:41→21:09)
[2017-11-02] MEDS: ASPIRIN 81 MG CHEW TAB CHEW SCH (08:41)
[2017-11-02] MEDS: VANCOMYCIN 1 GM/200 ML PREMIX IV SCH (08:41)
[2017-11-02] MEDS: SPIRONOLACTONE 25 MG TAB PO SCH (08:41)
[2017-11-02] MEDS: PRIMIDONE 50 MG TAB PO SCH ×3 (08:42→18:27)
[2017-11-02] MEDS: DILTIAZEM-CD 240 MG CAP ER PO SCH (08:42)
[2017-11-02] MEDS ORDERED: VANCOMYCIN INJ 1,250 MG in SODIUM CHLOR 0.9% 250 ML INJ 250 ML IV SCH (09:00)
[2017-11-02] MEDS ORDERED: WARFARIN SOD 5 MG TAB PO SCH (09:00)
[2017-11-02 12:00] VITALS: BP 91/46; PULSE 80; RESP 18; TEMP 96.8; O2SAT 95
--- NOTE | 2017-11-02 13:09 | HHI.PR ---
Subjective Remarks Pt seen and examined. AFVSS. No acute events overnight. Reports severe pain on the lateral aspect of his right leg as well as left hip pain. Feels his RLE is less swollen than yesterday but the erythema is unchanged. States he is able to wiggle his toes. Tolerating PO without nausea or vomiting. Denies CP or SOB. Would like home Lyrica and Baclofen resumed. Objective Vitals Vital Signs Date Time Temp Pulse Resp B/P (MAP) Pulse Ox O2 Delivery O2 Flow Rate FiO2 11/02/17 12:00 96.8 80 18 91/46 (61) 95 11/02/17 08:00 96.4 89 17 106/58 (74) 93 11/02/17 04:47 95 Nasal Cannula 3.00 11/02/17 04:41 18 11/01/17 20:00 96.8 103 20 124/58 (80) 93 11/01/17 16:00 96.8 103 18 163/68 (99) 91 11/01/17 13:50 95.8 95 18 122/59 (80) 96 11/01/17 13:15 I/O 11/01/17 11/01/17 11/01/17 11/02/17 11/02/17 11/02/17 07:00 15:00 23:00 07:00 15:00 23:00 Intake Total 360 ml 350 ml Output Total 400 ml 400 ml Balance -40 ml -400 ml 350 ml Intake Oral 360 ml IV Total 350 ml Output Urine Total 400 ml 400 ml # Voids 1 # Bowel Movements 0 Result Diagram: 11/02/17 0540 11/02/[address] 11/01/17 0736 Signed Impressions: Service Date/Time: Wednesday, November 01, 2017 08:36 - CONCLUSION: 1. Stable postsurgical features of prior right cerebral aneurysm clipping. 2. Senescent changes with mild to moderate small vessel periventricular white matter demyelination. 3. No acute abnormality or significant interval change. Benja Steele MD Chest X-Ray 11/01/17 0736 Signed Impressions: Service Date/Time: Wednesday, November 01, 2017 07:55 - CONCLUSION: 1. No acute abnormality identified. Stable compared to previous dated 06/22/17. Foster Whitaker MD Tibia/Fibula X-Ray 11/01/17 0000 Signed Impressions: Service Date/Time: Wednesday, November 01, 2017 07:58 - CONCLUSION: 1. Diffuse soft tissue swelling. 2. No acute bony abnormality. Foster Whitaker MD Objective Remarks GENERAL: Obese male laying in bed in NAD. SKIN: Warm and dry. See further details under extremities. HEENT: Pupils equal and round. MMM. NECK: Large neck habitus that is nontender but difficult to appreciate any significant LAD or JVD. HEART: RRR no m/r/g. LUNGS: CTAB without wheezes or crackles. ABDOMEN: Soft, NT, ND. EXTREMITIES: Left AKA; stub clean and dry. RLE with significant edema, scaling, and erythema from his toes to just distal to his knee with serous fluid staining the dressing. NEURO: Awake and alert. Speech slightly dysarthric. A/P Problem List: (1) Cellulitis of right foot ICD Code: L03.115 - Cellulitis of right lower limb Status: Acute (2) UTI (urinary tract infection) ICD Code: N39.0 - Urinary tract infection, site not specified Assessment and Plan 62 year old male admitted for AMS and RLE cellulitis. Recurrent Cellulitis Right lower extremity Continue vancomycin and cefepime for now and deescalate once appropriate and pending reccs from ID Not meeting septic criteria Monitor cultures ID consulted Wound care assisting Pain control Elevate leg UTI Currently on IV cefepime pending final urine culture - Gram negative rods so far AMS Resolved. Likely 2/2 to above infectious processes Ammonia and metabolic panel WNL History of DVT Resume warfarin with pharmacy consult for therapeutic dosing and monitoring Coronary artery disease Continue home statin, ASA COPD Duo Neb PRN Type 2 diabetes mellitus Hold home metformin Accu-Cheks before meals and at bedtime with medium dose NovoLog sliding scale coverage Atrial fibrillation Rate controlled and in sinus rhythm Resume Coumadin Resume home Cardizem Essential tremor Resume primidone Hyperlipidemia Resume pravastatin Neuropathy Resume Lyrica and baclofen DVT prophylaxis On home Coumadin with pharmacy dosing FEN Diabetic diet D/C fluids since tolerating PO Monitor electrolytes Discharge Planning Anticipate D/C in 1-2 days pending cultures and ID recommendations Farideh Yuan MD Nov 02, 2017 13:09
[2017-11-02] MEDS: BACLOFEN 20 MG TAB PO SCH ×2 (14:42→21:09)
[2017-11-02 16:00] VITALS: BP 99/53; PULSE 85; RESP 18; TEMP 97.1; O2SAT 95
[2017-11-02 18:02] VITALS: O2SAT 95
--- NOTE | 2017-11-02 19:07 | PD.ID.CON ---
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 and has h/o recurrent cellulits of RLE He presented with swelling, pain redness of the RLE x 2 months On presentation afebrile, WBC bordeline elevated He also was diagnosed with UTI with innumerable WBC obn UA and bacteria Known to me Review of Systems Except as stated in HPI: all other systems reviewed are Neg Past Family Social History Allergies: Coded Allergies: MRI PRECAUTION (Verified Allergy, Severe, ANEURSYM CLIPPING, 06/19/17) diatrizoate meglumine (Unverified Allergy, Severe, SHOCK, 06/19/17) gadobenic acid (Unverified Allergy, Severe, SHOCK, 06/19/17) gadodiamide (Unverified Allergy, Severe, SHOCK, 06/19/17) gadoteridol (Unverified Allergy, Severe, SHOCK, 06/19/17) iodine (Unverified Allergy, Severe, 06/19/17) iodixanol (Unverified Allergy, Severe, SHOCK, 06/19/17) iohexol (Unverified Allergy, Severe, SHOCK, 06/19/17) potassium iodide (Unverified Allergy, Severe, 06/19/17) povidone-iodine (Unverified Allergy, Severe, 06/19/17) sodium iodide (Unverified Allergy, Severe, 06/19/17) sodium iodide (Unverified Allergy, Severe, 06/19/17) Past Medical History Diabetes Mellitus Chronic right leg lymphedema Recurrent cellulitis Recurrent DVTs Hyperlipidemia Atrial fibrillation Cardiomyopathy Congestive heart failure Coronary artery disease Multiple CVAs and TIAs Endocarditis Hypertension COPD Migraines Essential tremors Osteoarthritis Degenerative disc disease Past Surgical History Right subclavian port placement Left leg amputation Brain surgery with aneurysm clipping Fibrous tumor removed from back Knee surgery Elbow surgery Tonsillectomy Appendectomy Active Ordered Medications Medications where reviewed in EMR Antibiotics Include: cefepime vancomycin Family History Patient is adopted and does not know family history from ancestors ; his son has had multiple aneurysms Social History Tobacco: Smokes 4 cigarettes per day Alcohol: denies Illicit Drugs: denies . Physical Exam Vital Signs Vital Signs Date Time Temp Pulse Resp B/P (MAP) Pulse Ox O2 Delivery O2 Flow Rate FiO2 11/02/17 18:02 95 Nasal Cannula 3.00 11/02/17 16:00 97.1 85 18 99/53 (68) 95 11/02/17 12:00 96.8 80 18 91/46 (61) 95 11/02/17 08:00 96.4 89 17 106/58 (74) 93 11/02/17 04:47 95 Nasal Cannula 3.00 11/02/17 04:41 18 11/01/17 20:00 96.8 103 20 124/58 (80) 93 Physical Exam CONSTITUTIONAL/GENERAL: This is a morbidly obese male patient, in no apparent distress. TUBES/LINES/DRAINS: SKIN: No jaundice, rashes, or lesions. . Skin temperature appropriate. Not diaphoretic. HEAD: Atraumatic. Normocephalic. EYES: Pupils equal and round and reactive. Extraocular motions intact. No scleral icterus. No injection or drainage. Fundi not examined. ENT: Hearing grossly normal. Nose without bleeding or purulent drainage. Throat without visible erythema, exudates, masses, or lesions. NECK: Trachea midline. Supple, nontender. No palpable thyroid enlargement or nodularity. CARDIOVASCULAR: Regular rate and rhythm without murmurs, gallops, or rubs. No JVD. Peripheral pulses symmetric. RESPIRATORY/CHEST: Symmetric, unlabored respirations. Clear to auscultation. Breath sounds equal bilaterally. No wheezes, rales, or rhonchi. GASTROINTESTINAL: Abdomen soft, non-tender, nondistended. No hepato-splenomegaly , or palpable masses. No guarding. Bowel sounds present. GENITOURINARY: Without palpable bladder distension. MUSCULOSKELETAL: LLE s/p AKA - well healed RLE with chronic skin changes , icluding pachdermosis, hyperpigmentaiton and coarse tree bark fortune Very tender to palpation + erythematous medial mallelous alcer with small amount of serosang d/c No joint tenderness or effusion noted. No calf tenderness. No mottling or clubbing. LYMPHATICS: No palpable cervical or supraclavicular adenopathy. NEUROLOGICAL: Awake and alert. Motor and sensory grossly within normal limits. Follows commands. Clear speech. Moves all extremities. PSYCHIATRIC: No obvious anxiety/depression. no apparent hallucinations or other psychotic thought process. Laboratory Laboratory Tests Test 11/02/17 05:40 White Blood Count 10.7 Red Blood Count 3.47 Hemoglobin 8.5 Hematocrit 27.0 Mean Corpuscular Volume 78.0 Mean Corpuscular Hemoglobin 24.5 Mean Corpuscular Hemoglobin Concent 31.4 Red Cell Distribution Width 18.0 Platelet Count 341 Mean Platelet Volume 8.0 Neutrophils (%) (Auto) 81.2 Lymphocytes (%) (Auto) 12.6 Monocytes (%) (Auto) 5.8 Eosinophils (%) (Auto) 0.0 Basophils (%) (Auto) 0.4 Neutrophils # (Auto) 8.7 Lymphocytes # (Auto) 1.4 Monocytes # (Auto) 0.6 Eosinophils # (Auto) 0.0 Basophils # (Auto) 0.0 CBC Comment DIFF FINAL Differential Comment Prothrombin Time 16.4 Prothromb Time International Ratio 1.6 Blood Urea Nitrogen 17 Creatinine 0.70 Random Glucose 128 Total Protein 7.7 Albumin 2.3 Calcium Level 8.3 Alkaline Phosphatase 46 Aspartate Amino Transf (AST/SGOT) 10 Alanine Aminotransferase (ALT/SGPT) 9 Total Bilirubin 0.3 Sodium Level 135 Potassium Level 4.3 Chloride Level 102 Carbon Dioxide Level 30.1 Anion Gap 3 Estimat Glomerular Filtration Rate 114 Date/Time Source Procedure Growth Status 11/01/17 07:50 Blood Peripheral Aerobic Blood Culture - Preliminary NO GROWTH IN 1 DAY Resulted 11/01/17 07:50 Blood Peripheral Anaerobic Blood Culture - Preliminary NO GROWTH IN 1 DAY Resulted 11/01/17 08:50 Nasal Washing Influenza Types A,B Antigen (CHEO) - Final NEGATIVE FOR FLU A AND B ANTIGEN.... Complete 11/01/17 09:25 Urine Catheterized Urine Urine Culture - Preliminary Gram Negative Devan Resulted Result Diagram: 11/02/17 0540 11/02/17 0540 Imaging Last Impressions Head CT 11/01/17735 Signed Impressions: Service Date/Time: Wednesday, November 01, 2017 08:36 - CONCLUSION: 1. Stable postsurgical features of prior right cerebral aneurysm clipping. 2. Senescent changes with mild to moderate small vessel periventricular white matter demyelination. 3. No acute abnormality or significant interval change. Benja Steele MD Chest X-Ray 11/01/17735 Signed Impressions: Service Date/Time: Wednesday, November 01, 2017 07:55 - CONCLUSION: 1. No acute abnormality identified. Stable compared to previous dated 06/22/17. Foster Whitaker MD Tibia/Fibula X-Ray 11/01/17 0000 Signed Impressions: Service Date/Time: Wednesday, November 01, 2017 07:58 - CONCLUSION: 1. Diffuse soft tissue swelling. 2. No acute bony abnormality. Foster Whitaker MD Assessment and Plan Assessment and Plan Morbid obesity with chronic venostatis Celllulitis, recurrent vs chronic in nature UTI, GNB cont current abx further rec's to follow Lavonne Robins MD Nov 02, 2017 19:07
[2017-11-02 20:00] VITALS: BP 169/78; PULSE 75; RESP 22; TEMP 96.3; O2SAT 97
[2017-11-02] MEDS: PREGABALIN 100 MG CAP PO SCH (21:09)
[2017-11-02] MEDS: VANCOMYCIN INJ 1,000 MG in SODIUM CHLOR 0.9% 250 ML INJ 250 ML IV SCH (21:09)
[2017-11-02] MEDS: PRAVASTATIN SOD 20 MG TAB PO SCH (21:09)
[2017-11-03] VITALS: BP 141/65; PULSE 95; RESP 20; TEMP 96; O2SAT 95
[2017-11-03] MEDS: oxyCODONE/ACETAMINOPHEN 5 MG/325 MG TAB PO PRN ×5 (02:55→22:15)
[2017-11-03] MEDS: CEFEPIME INJ 2,000 MG in SODIUM CHLORIDE 0.9% INJ 100 ML IV SCH ×3 (02:55→17:31)
[2017-11-03] MEDS: BACLOFEN 20 MG TAB PO SCH ×3 (05:16→20:26)
[2017-11-03 05:49] LABS: AUTOMATED NEUTROPHIL # 9.9 TH/MM3 (1.8-7.7); BASOPHIL # 0.2 TH/MM3 (0-0.2); BASOPHIL % 1.2 % (0.0-2.0); EOSINOPHIL # 0.2 TH/MM3 (0-0.4); EOSINOPHIL % 1.2 % (0.0-4.0); HEMATOCRIT 28.7 % (39.0-51.0); HEMOGLOBIN 8.8 GM/DL (13.0-17.0); LYMPH % 16.7 % (9.0-44.0); LYMPHOCYTE # 2.2 TH/MM3 (1.0-4.8); MEAN CELL VOLUME 78.2 FL (80.0-100.0); MEAN CORPUSCULAR HGB CONC 30.7 % (32.0-36.0); MEAN PLATELET VOLUME 7.7 FL (7.0-11.0); MONO % 4.7 % (0.0-8.0); MONOCYTE # 0.6 TH/MM3 (0-0.9); NEUT % 76.2 % (16.0-70.0); PLATELET COUNT 335 TH/MM3 (150-450); RED BLOOD COUNT 3.67 MIL/MM3 (4.50-5.90); WHITE BLOOD COUNT 12.9 TH/MM3 (4.0-11.0)
[2017-11-03 06:03] LABS: INTERNATIONAL NORMALIZED RATIO 1.7 RATIO; PROTHROMBIN TIME - PATIENT 16.8 SEC (9.8-11.6)
[2017-11-03 06:21] LABS: BICARBONATE 30.1 MEQ/L (21.0-32.0); CREATININE 0.82 MG/DL (0.60-1.30)
[2017-11-03] MEDS: INSULIN ASPART SUPPLEMENTAL SCALE SQ SCH ×4 (07:58→20:26)
[2017-11-03 08:00] VITALS: BP 150/67; PULSE 95; RESP 18; TEMP 96.8; O2SAT 96
[2017-11-03] MEDS: PRIMIDONE 50 MG TAB PO SCH ×3 (08:00→17:30)
[2017-11-03] MEDS: DILTIAZEM-CD 240 MG CAP ER PO SCH (08:00)
[2017-11-03] MEDS: VANCOMYCIN INJ 1,000 MG in SODIUM CHLOR 0.9% 250 ML INJ 250 ML IV SCH ×2 (08:00→20:22)
[2017-11-03] MEDS: LACTOBACILLUS ACIDOPHILUS TAB PO SCH ×2 (08:00→20:23)
[2017-11-03] MEDS: ASPIRIN 81 MG CHEW TAB CHEW SCH (08:00)
[2017-11-03] MEDS: SPIRONOLACTONE 25 MG TAB PO SCH (08:01)
[2017-11-03] MEDS: PREGABALIN 100 MG CAP PO SCH ×2 (08:01→20:23)
[2017-11-03] MEDS: SODIUM CHLORIDE 0.9% FLUSH 10 ML FLUSH IV FLUSH SCH ×2 (08:01→20:22)
[2017-11-03] MEDS ORDERED: PHARMACY ORDERED LAB ONE (08:45)
--- NOTE | 2017-11-03 11:24 | HHI.PR ---
Subjective Remarks Pt seen and examined this morning. AFVSS. No acute events overnight. Main concern today is burning underneath his scrotum that started this morning. Denies itching or dysuria. Otherwise pain in RLE with infection stable. Breathing stable but endorses cough. Denies CP, N/V. Objective Vitals Vital Signs Date Time Temp Pulse Resp B/P (MAP) Pulse Ox O2 Delivery O2 Flow Rate FiO2 11/03/17 08:00 96.8 95 18 150/67 (94) 96 11/03/17 00:00 96.0 95 20 141/65 (90) 95 11/02/17 20:00 96.3 75 22 169/78 (108) 97 11/02/17 18:02 95 Nasal Cannula 3.00 11/02/17 16:00 97.1 85 18 99/53 (68) 95 11/02/17 12:00 96.8 80 18 91/46 (61) 95 I/O 11/02/17 11/02/17 11/02/17 11/03/17 11/03/17 11/03/17 07:00 15:00 23:00 07:00 15:00 23:00 Intake Total 350 ml 730 ml 460 ml Output Total 400 ml 600 ml 2250 ml Balance -400 ml 350 ml 130 ml -1790 ml Intake Oral 480 ml 360 ml IV Total 350 ml 250 ml 100 ml Output Urine Total 400 ml 600 ml 2250 ml # Bowel Movements 0 0 Result Diagram: 11/03/17 0530 11/03/17 0530 Objective Remarks GENERAL: Obese male laying in bed in [facility]. SKIN: Warm and dry. See further details under extremities. HEENT: Pupils equal and round. MMM. NECK: Large neck habitus that is nontender but difficult to appreciate any significant LAD or JVD. HEART: RRR no m/r/g. LUNGS: Clear with occasional scattered wheezing. ABDOMEN: Soft, NT, ND. : Erythema underneath scrotum and along crural folds. No open sores or lesions. EXTREMITIES: Left AKA; stub clean and dry. RLE with significant edema, scaling, and erythema from his toes to just distal to his knee with serous fluid staining the dressing. NEURO: Awake and alert. A/P Problem List: (1) Cellulitis of right foot ICD Code: L03.115 - Cellulitis of right lower limb Status: Acute (2) UTI (urinary tract infection) ICD Code: N39.0 - Urinary tract infection, site not specified (3) Tinea cruris ICD Code: B35.6 - Tinea cruris Assessment and Plan 62 year old male admitted for AMS and RLE cellulitis. AMS now resolved. Recurrent Cellulitis Right lower extremity ID consulted, on vanc and cefepime - recommend continuing current abx until further reccs Not meeting septic criteria Blood cultures with NG in 2 days Wound care assisting Pain control Elevate leg UTI E. coli on urine culture Continue IV cefepime per ID Tinea cruris Topical clotrimazole BID AMS Resolved. Likely 2/2 to above infectious processes Ammonia and metabolic panel WNL History of DVT Resume warfarin with pharmacy consult for therapeutic dosing and monitoring Coronary artery disease Continue home statin, ASA COPD Duo Neb PRN Type 2 diabetes mellitus Hold home metformin Accu-Cheks before meals and at bedtime with medium dose NovoLog sliding scale coverage Atrial fibrillation Rate controlled and in sinus rhythm Resume Coumadin Resume home Cardizem Essential tremor Resume primidone Hyperlipidemia Resume pravastatin Neuropathy Resume Lyrica and baclofen DVT prophylaxis On home Coumadin with pharmacy dosing FEN Diabetic diet Monitor electrolytes Discharge Planning Anticipate D/C in 1-2 days pending cultures and ID recommendations Farideh Yuan MD Nov 03, 2017 11:24
[2017-11-03 11:38] VITALS: O2SAT 96
[2017-11-03 12:00] VITALS: BP 148/69; PULSE 93; RESP 19; TEMP 97.4; O2SAT 96
[2017-11-03] MEDS ORDERED: WARFARIN SOD 1 MG TAB PO ONE (16:00)
[2017-11-03] MEDS ORDERED: WARFARIN SOD 5 MG TAB PO SCH (16:00)
[2017-11-03] MEDS: RESP: ALBUTEROL 2.5 MG/IPRATROPIUM 0.5 MG NEB (PRN) NEB (19:28)
[2017-11-03 19:31] VITALS: O2SAT 96
[2017-11-03 20:00] VITALS: BP 158/65; PULSE 82; RESP 20; TEMP 96.3; O2SAT 97
[2017-11-03] MEDS: PRAVASTATIN SOD 20 MG TAB PO SCH (20:23)
[2017-11-03] MEDS: CLOTRIMAZOLE 1% CREAM 15 GM TOPICAL SCH (21:00)
[2017-11-04] VITALS: BP 157/70; PULSE 80; RESP 20; TEMP 96.6; O2SAT 98
[2017-11-04] MEDS: CEFEPIME INJ 2,000 MG in SODIUM CHLORIDE 0.9% INJ 100 ML IV SCH ×2 (02:40→11:53)
[2017-11-04] MEDS: oxyCODONE/ACETAMINOPHEN 5 MG/325 MG TAB PO PRN ×4 (02:40→21:42)
[2017-11-04] MEDS: BACLOFEN 20 MG TAB PO SCH ×3 (05:02→21:42)
[2017-11-04 05:25] LABS: HEMATOCRIT 29.4 % (39.0-51.0); HEMOGLOBIN 9.2 GM/DL (13.0-17.0); MEAN CELL VOLUME 77.4 FL (80.0-100.0); MEAN CORPUSCULAR HEMOGLOBIN 24.1 PG (27.0-34.0); MEAN CORPUSCULAR HGB CONC 31.1 % (32.0-36.0); MEAN PLATELET VOLUME 7.7 FL (7.0-11.0); PLATELET COUNT 328 TH/MM3 (150-450); RED CELL DISTRIBUTION WIDTH 17.8 % (11.6-17.2); WHITE BLOOD COUNT 9.3 TH/MM3 (4.0-11.0)
[2017-11-04 05:33] LABS: INTERNATIONAL NORMALIZED RATIO 2.2 RATIO; PROTHROMBIN TIME - PATIENT 22.1 SEC (9.8-11.6)
[2017-11-04 08:00] VITALS: BP 157/69; PULSE 86; RESP 20; TEMP 97.3; O2SAT 95
[2017-11-04] MEDS: INSULIN ASPART SUPPLEMENTAL SCALE SQ SCH ×4 (08:00→21:00)
[2017-11-04] MEDS: ASPIRIN 81 MG CHEW TAB CHEW SCH (08:05)
[2017-11-04] MEDS: PREGABALIN 100 MG CAP PO SCH ×2 (08:05→21:41)
[2017-11-04] MEDS: PRIMIDONE 50 MG TAB PO SCH ×3 (08:05→17:28)
[2017-11-04] MEDS: SPIRONOLACTONE 25 MG TAB PO SCH (08:05)
[2017-11-04] MEDS: DILTIAZEM-CD 240 MG CAP ER PO SCH (08:05)
[2017-11-04] MEDS: LACTOBACILLUS ACIDOPHILUS TAB PO SCH ×2 (08:05→21:41)
[2017-11-04] MEDS: SODIUM CHLORIDE 0.9% FLUSH 10 ML FLUSH IV FLUSH SCH ×2 (08:06→21:42)
[2017-11-04] MEDS: VANCOMYCIN INJ 1,000 MG in SODIUM CHLOR 0.9% 250 ML INJ 250 ML IV SCH (08:07)
[2017-11-04] MEDS: CLOTRIMAZOLE 1% CREAM 15 GM TOPICAL SCH ×2 (08:09→21:44)
[2017-11-04] MEDS: RESP: ALBUTEROL 2.5 MG/IPRATROPIUM 0.5 MG NEB (PRN) NEB (08:33)
[2017-11-04 08:34] VITALS: O2SAT 95
--- NOTE | 2017-11-04 10:04 | HHI.PR ---
Subjective Remarks Pt seen and examined this morning. AFVSS. No acute events overnight. Reports today he is feeling better than prior days. Pain has improved and he requests a reduction of his Percocet. Tolerating PO without N/V. Denies CP or SOB. Burning under scrotum has improved with Clotrimazole. Objective Vitals Vital Signs Date Time Temp Pulse Resp B/P (MAP) Pulse Ox O2 Delivery O2 Flow Rate FiO2 11/04/17 08:34 95 Nasal Cannula 2.00 11/04/17 08:00 97.3 86 20 157/69 (98) 95 11/04/17 00:00 96.6 80 20 157/70 (99) 98 11/03/17 20:00 96.3 82 20 158/65 (96) 97 11/03/17 19:31 96 Nasal Cannula 3.00 11/03/17 12:00 97.4 93 19 148/69 (95) 96 11/03/17 11:38 96 Nasal Cannula 3.00 I/O 11/03/17 11/03/17 11/03/17 11/04/17 11/04/17 11/04/17 07:00 15:00 23:00 07:00 15:00 23:00 Intake Total 460 ml 350 ml 1070 ml 580 ml 240 ml Output Total 2250 ml 1600 ml 850 ml Balance -1790 ml 350 ml -530 ml -270 ml 240 ml Intake Oral 360 ml 720 ml 480 ml 240 ml IV Total 100 ml 350 ml 350 ml 100 ml Output Urine Total 2250 ml 1600 ml 850 ml # Bowel Movements 0 0 0 Result Diagram: 11/04/1715 11/03/17 0530 Objective Remarks GENERAL: Obese male laying in bed in [facility]. SKIN: Warm and dry. See further details under extremities. HEENT: Pupils equal and round. MMM. NECK: Large neck habitus that is nontender but difficult to appreciate any significant LAD or JVD. HEART: RRR no m/r/g. LUNGS: Clear with occasional scattered wheezing. ABDOMEN: Soft, NT, ND. EXTREMITIES: Left AKA; stub clean and dry. RLE with significant edema, scaling, and erythema from his toes to just distal to his knee with serous fluid staining the dressing. NEURO: Awake and alert. A/P Problem List: (1) Cellulitis of right foot ICD Code: L03.115 - Cellulitis of right lower limb Status: Acute (2) UTI (urinary tract infection) ICD Code: N39.0 - Urinary tract infection, site not specified (3) Tinea cruris ICD Code: B35.6 - Tinea cruris Assessment and Plan 62 year old male admitted for AMS and RLE cellulitis. AMS now resolved. Recurrent Cellulitis Right lower extremity ID consulted, on vanc and cefepime - recommend continuing current abx until further reccs Not meeting septic criteria Blood cultures with NG in 2 days Wound care assisting Pain control Elevate leg PT consulted UTI E. coli on urine culture Continue IV cefepime per ID Tinea cruris Topical clotrimazole BID AMS Resolved. Likely 2/2 to above infectious processes Ammonia and metabolic panel WNL History of DVT Resume warfarin with pharmacy consult for therapeutic dosing and monitoring Coronary artery disease Continue home statin, ASA COPD Duo Neb PRN Type 2 diabetes mellitus Hold home metformin Accu-Cheks before meals and at bedtime with medium dose NovoLog sliding scale coverage Atrial fibrillation Rate controlled and in sinus rhythm Resume Coumadin Resume home Cardizem Essential tremor Resume primidone Hyperlipidemia Resume pravastatin HTN BPs elevated Start Lisinopril 10 mg and can titrate Neuropathy Resume Lyrica and baclofen DVT prophylaxis On home Coumadin with pharmacy dosing FEN Diabetic diet Monitor electrolytes Discharge Planning Anticipate D/C in 1-2 days pending cultures and ID recommendations Farideh Yuan MD Nov 04, 2017 10:04
[2017-11-04] MEDS ORDERED: ACETAMINOPHEN/HYDROcodone 325 MG/5 MG TAB PO PRN (10:15)
[2017-11-04] MEDS: LISINOPRIL 10 MG TAB PO SCH (11:54)
[2017-11-04 12:00] VITALS: BP 124/60; PULSE 89; RESP 20; TEMP 97; O2SAT 96
[2017-11-04 16:00] VITALS: BP 121/60; PULSE 78; RESP 20; TEMP 96.9; O2SAT 96
[2017-11-04] MEDS ORDERED: WARFARIN SOD 4 MG TAB PO SCH (16:00)
--- NOTE | 2017-11-04 16:46 | HHI.IDPN ---
Subjective Subjective Remarks Pt is doing ok afebrile E.coli in urine culture Antibiotics cefepime vanco Allergies: Coded Allergies: MRI PRECAUTION (Verified Allergy, Severe, ANEURSYM CLIPPING, 06/19/17) diatrizoate meglumine (Unverified Allergy, Severe, SHOCK, 06/19/17) gadobenic acid (Unverified Allergy, Severe, SHOCK, 06/19/17) gadodiamide (Unverified Allergy, Severe, SHOCK, 06/19/17) gadoteridol (Unverified Allergy, Severe, SHOCK, 06/19/17) iodine (Unverified Allergy, Severe, 06/19/17) iodixanol (Unverified Allergy, Severe, SHOCK, 06/19/17) iohexol (Unverified Allergy, Severe, SHOCK, 06/19/17) potassium iodide (Unverified Allergy, Severe, 06/19/17) povidone-iodine (Unverified Allergy, Severe, 06/19/17) sodium iodide (Unverified Allergy, Severe, 06/19/17) sodium iodide (Unverified Allergy, Severe, 06/19/17) Objective . Vital Signs Date Time Temp Pulse Resp B/P (MAP) Pulse Ox O2 Delivery O2 Flow Rate FiO2 11/04/17 12:00 97.0 89 20 124/60 (81) 96 11/04/17 08:34 95 Nasal Cannula 2.00 11/04/17 08:00 97.3 86 20 157/69 (98) 95 11/04/17 00:00 96.6 80 20 157/70 (99) 98 11/03/17 20:00 96.3 82 20 158/65 (96) 97 11/03/17 19:31 96 Nasal Cannula 3.00 11/04/17 11/04/17 11/05/17 15:00 23:00 07:00 Intake Total 240 ml Balance 240 ml Intake Oral 240 ml . Laboratory Tests Test 11/03/17 05:30 11/04/17 05:15 White Blood Count 12.9 TH/MM3 9.3 TH/MM3 Red Blood Count 3.67 MIL/MM3 3.80 MIL/MM3 Hemoglobin 8.8 GM/DL 9.2 GM/DL Hematocrit 28.7 % 29.4 % Mean Corpuscular Volume 78.2 FL 77.4 FL Mean Corpuscular Hemoglobin 24.0 PG 24.1 PG Mean Corpuscular Hemoglobin Concent 30.7 % 31.1 % Red Cell Distribution Width 18.0 % 17.8 % Platelet Count 335 TH/MM3 328 TH/MM3 Mean Platelet Volume 7.7 FL 7.7 FL Neutrophils (%) (Auto) 76.2 % Lymphocytes (%) (Auto) 16.7 % Monocytes (%) (Auto) 4.7 % Eosinophils (%) (Auto) 1.2 % Basophils (%) (Auto) 1.2 % Neutrophils # (Auto) 9.9 TH/MM3 Lymphocytes # (Auto) 2.2 TH/MM3 Monocytes # (Auto) 0.6 TH/MM3 Eosinophils # (Auto) 0.2 TH/MM3 Basophils # (Auto) 0.2 TH/MM3 CBC Comment DIFF FINAL Differential Comment Laboratory Tests Test 11/03/17 05:30 Blood Urea Nitrogen 18 MG/DL Creatinine 0.82 MG/DL Random Glucose 101 MG/DL Calcium Level 8.0 MG/DL Sodium Level 138 MEQ/L Potassium Level 3.7 MEQ/L Chloride Level 102 MEQ/L Carbon Dioxide Level 30.1 MEQ/L Anion Gap 6 MEQ/L Estimat Glomerular Filtration Rate 95 ML/MIN Imaging Last Impressions Head CT 11/01/17 0736 Signed Impressions: Service Date/Time: Wednesday, November 01, 2017 08:36 - CONCLUSION: 1. Stable postsurgical features of prior right cerebral aneurysm clipping. 2. Senescent changes with mild to moderate small vessel periventricular white matter demyelination. 3. No acute abnormality or significant interval change. Benja Steele MD Chest X-Ray 11/01/17 0736 Signed Impressions: Service Date/Time: Wednesday, November 01, 2017 07:55 - CONCLUSION: 1. No acute abnormality identified. Stable compared to previous dated 06/22/17. Foster Whitaker MD Tibia/Fibula X-Ray 11/01/17 0000 Signed Impressions: Service Date/Time: Wednesday, November 01, 2017 07:58 - CONCLUSION: 1. Diffuse soft tissue swelling. 2. No acute bony abnormality. Foster Whitaker MD Physical Exam CONSTITUTIONAL/GENERAL: This is a morbidly obese male patient, in no apparent distress. TUBES/LINES/DRAINS: SKIN: No jaundice, rashes, or lesions. . Skin temperature appropriate. Not diaphoretic. CARDIOVASCULAR: Regular rate and rhythm without murmurs, gallops, or rubs. No JVD. Peripheral pulses symmetric. RESPIRATORY/CHEST: Symmetric, unlabored respirations. Clear to auscultation. Breath sounds equal bilaterally. No wheezes, rales, or rhonchi. GASTROINTESTINAL: Abdomen soft, non-tender, nondistended. No hepato-splenomegaly , or palpable masses. No guarding. Bowel sounds present. GENITOURINARY: Without palpable bladder distension. rose in place with clear yellow urine MUSCULOSKELETAL: LLE s/p AKA - well healed RLE with chronic skin changes , icluding pachdermosis, hyperpigmentaiton and coarse tree bark fortune Not tender to palpation erythema resolved edema siignificantly improved NEUROLOGICAL: Awake and alert. Motor and sensory grossly within normal limits. Follows commands. Clear speech. Moves all extremities. PSYCHIATRIC: No obvious anxiety/depression. no apparent hallucinations or other psychotic thought process. Assessment & Plan Remarks Assessment and Plan Assessment and Plan Morbid obesity with chronic venostatis Celllulitis, recurrent vs chronic in nature UTI, E.coli change abx to Augmentin and doxycyline and cont abx for 10 more days to cmplete 2 weeks Lavonne Robins MD Nov 04, 2017 16:46
[2017-11-04 20:23] VITALS: BP 124/60; PULSE 78; RESP 20; TEMP 96.2; O2SAT 91
[2017-11-04] MEDS: PRAVASTATIN SOD 20 MG TAB PO SCH (21:41)
[2017-11-04] MEDS: DOXYCYCLINE HYCLATE 100 MG CAP PO SCH (21:41)
[2017-11-04] MEDS: AMOXICILLIN/CLAVULANATE K 500 MG TAB PO SCH (21:59)
[2017-11-05] MEDS: RESP: ALBUTEROL 2.5 MG/IPRATROPIUM 0.5 MG NEB (PRN) NEB (01:19)
[2017-11-05 01:22] VITALS: O2SAT 96
[2017-11-05] MEDS ORDERED: diphenhydrAMINE HCL 50 MG/ML VIAL IV PUSH ONE (01:45)
[2017-11-05 01:49] VITALS: BP 140/65; PULSE 76; RESP 18; TEMP 96.8; O2SAT 92
[2017-11-05] MEDS: oxyCODONE/ACETAMINOPHEN 5 MG/325 MG TAB PO PRN ×5 (03:15→22:26)
[2017-11-05 04:00] VITALS: BP 113/65; PULSE 64; RESP 20; TEMP 97.2; O2SAT 98
[2017-11-05] MEDS: BACLOFEN 20 MG TAB PO SCH ×3 (05:14→20:52)
[2017-11-05] MEDS: AMOXICILLIN/CLAVULANATE K 500 MG TAB PO SCH ×2 (06:00→09:09)
[2017-11-05 06:12] LABS: PROTHROMBIN TIME - PATIENT 30.5 SEC (9.8-11.6)
[2017-11-05 08:00] VITALS: BP 145/64; PULSE 82; RESP 20; TEMP 97.3; O2SAT 95
[2017-11-05] MEDS: INSULIN ASPART SUPPLEMENTAL SCALE SQ SCH ×4 (08:00→22:28)
[2017-11-05] MEDS ORDERED: PHARMACY ORDERED LAB ONE (08:45)
[2017-11-05] MEDS: DOXYCYCLINE HYCLATE 100 MG CAP PO SCH (09:00)
[2017-11-05] MEDS: SODIUM CHLORIDE 0.9% FLUSH 10 ML FLUSH IV FLUSH SCH ×2 (09:00→20:53)
[2017-11-05] MEDS: PRIMIDONE 50 MG TAB PO SCH ×3 (09:02→18:12)
[2017-11-05] MEDS: PREGABALIN 100 MG CAP PO SCH ×2 (09:02→20:52)
[2017-11-05] MEDS: ASPIRIN 81 MG CHEW TAB CHEW SCH (09:02)
[2017-11-05] MEDS: LISINOPRIL 10 MG TAB PO SCH (09:02)
[2017-11-05] MEDS: LACTOBACILLUS ACIDOPHILUS TAB PO SCH ×2 (09:02→20:52)
[2017-11-05] MEDS: SPIRONOLACTONE 25 MG TAB PO SCH (09:02)
[2017-11-05] MEDS: DILTIAZEM-CD 240 MG CAP ER PO SCH (09:02)
[2017-11-05] MEDS: CLOTRIMAZOLE 1% CREAM 15 GM TOPICAL SCH ×2 (09:11→20:53)
[2017-11-05 12:00] VITALS: BP 154/67; PULSE 90; RESP 20; TEMP 97.5; O2SAT 95
[2017-11-05] MEDS ORDERED: Vancomycin Consult Pharmacy 1 EA OTHER PRN (12:15)
[2017-11-05] MEDS: VANCOMYCIN 1,000 MG/NS 250 ML IV SCH ×2 (13:23)
[2017-11-05] MEDS ORDERED: VANCOMYCIN 1 GM/200 ML PREMIX IV SCH (14:00)
[2017-11-05] MEDS ORDERED: LYRI100C PO (14:21)
[2017-11-05] MEDS ORDERED: DOXY100C PO (14:21)
[2017-11-05] MEDS ORDERED: AUGM875T3 PO (14:21)
[2017-11-05] MEDS ORDERED: COUM4TAB PO (14:21)
[2017-11-05] MEDS ORDERED: LISI10TA3 PO (14:21)
--- NOTE | 2017-11-05 14:23 | HHI.DCPOC ---
Discharge Care Plan Diagnosis: (1) Diabetic neuropathy (2) Tinea cruris (3) Acute metabolic encephalopathy (4) Cellulitis of right foot (5) UTI (urinary tract infection) (6) History of DVT (deep vein thrombosis) (7) History of TIA (transient ischemic attack) (8) Type 2 diabetes mellitus (9) Hyperlipemia (10) Hypertension Goals to Promote Your Health * To prevent worsening of your condition and complications * To maintain your health at the optimal level Directions to Meet Your Goals Take your medications as prescribed Follow your dietary instruction Follow activity as directed Keep your appointments as scheduled Take your immunizations and boosters as scheduled If your symptoms worsen call your PCP, if no PCP go to Urgent Care Center or Emergency Room Smoking is Dangerous to Your Health. Avoid second hand smoke Call the 24-hour hour crisis hotline for domestic abuse at Kavin Robles MD Nov 05, 2017 14:23
--- NOTE | 2017-11-05 14:49 | HHI.PR ---
Subjective Remarks Patient c/o pain in right lower extremity. Afebrile. Denies nausea, vomiting or abdominal pain. Objective Vitals Vital Signs Date Time Temp Pulse Resp B/P (MAP) Pulse Ox O2 Delivery O2 Flow Rate FiO2 11/05/17 12:00 97.5 90 20 154/67 (96) 95 11/05/17 08:00 97.3 82 20 145/64 (91) 95 11/05/17 04:00 97.2 64 20 113/65 (81) 98 11/05/17 01:49 96.8 76 18 140/65 (90) 92 11/05/17 01:22 96 Nasal Cannula 3.00 11/04/17 20:23 96.2 78 20 124/60 (81) 91 11/04/17 16:00 96.9 78 20 121/60 (80) 96 I/O 11/04/17 11/04/17 11/04/17 11/05/17 11/05/17 11/05/17 07:00 15:00 23:00 07:00 15:00 23:00 Intake Total 580 ml 240 ml 1250 ml 240 ml 240 ml Output Total 850 ml 1200 ml 1700 ml Balance -270 ml 240 ml 50 ml -1460 ml 240 ml Intake Oral 480 ml 240 ml 900 ml 240 ml 240 ml IV Total 100 ml 350 ml Output Urine Total 850 ml 1200 ml 1700 ml # Bowel Movements 0 0 Result Diagram: 11/04/17 0515 11/03/17 0530 Imaging Last Impressions Head CT 11/01/17 0736 Signed Impressions: Service Date/Time: Wednesday, November 01, 2017 08:36 - CONCLUSION: 1. Stable postsurgical features of prior right cerebral aneurysm clipping. 2. Senescent changes with mild to moderate small vessel periventricular white matter demyelination. 3. No acute abnormality or significant interval change. Benja Steele MD Chest X-Ray 11/01/17 0736 Signed Impressions: Service Date/Time: Wednesday, November 01, 2017 07:55 - CONCLUSION: 1. No acute abnormality identified. Stable compared to previous dated 06/22/17. Foster Whitaker MD Tibia/Fibula X-Ray 11/01/17 0000 Signed Impressions: Service Date/Time: Wednesday, November 01, 2017 07:58 - CONCLUSION: 1. Diffuse soft tissue swelling. 2. No acute bony abnormality. Foster Whitaker MD Objective Remarks GENERAL: Obese male laying in bed in NAD. SKIN: Warm and dry. See further details under extremities. HEENT: Pupils equal and round. MMM. NECK: Large neck habitus that is nontender but difficult to appreciate any significant LAD or JVD. HEART: RRR no m/r/g. LUNGS: Clear with occasional scattered wheezing. ABDOMEN: Soft, NT, ND. EXTREMITIES: Left AKA; stub clean and dry. RLE with improved edema and changes consistent with chronic edema. Erythema now much improved. NEURO: Awake and alert. Procedures none Medications and IVs Current Medications Medications (Trade) Dose Ordered Sig/Carrie Route Start Time Stop Time Status Last Admin (NS Flush) 2 ml UNSCH PRN IV FLUSH 11/01/17 10:45 (NS Flush) 2 ml BID IV FLUSH 11/01/17 21:00 11/05/17 09:00 (Tylenol) 650 mg Q4H PRN PO 11/01/17 10:45 (Zofran Inj) 4 mg Q6H PRN IVP 11/01/17 10:45 (Narcan Inj) 0.4 mg UNSCH PRN IV PUSH 11/01/17 10:45 (Milk Of Magnesia Liq) 30 ml Q12H PRN PO 11/01/17 10:45 (D50w (Vial) Inj) 50 ml UNSCH PRN IV PUSH 11/01/17 10:45 (Glucagon Inj) 1 mg UNSCH PRN OTHER 11/01/17 10:45 (NovoLOG SUPPLEMENTAL SCALE) 1 ACHS SLIDING SCALE SQ 11/01/17 12:00 11/02/17 21:10 Pharmacy Profile Note 0 ml @ 0 mls/hr UNSCH PRN OTHER 11/01/17 14:45 (Lactinex) 1 tab Q12HR PO 11/01/17 21:00 11/05/17 09:02 (Aspirin Chew) 81 mg DAILY CHEW 11/02/17 09:00 11/05/17 09:02 (Cardizem Cd) 240 mg DAILY PO 11/02/17 09:00 11/05/17 09:02 (Pravachol) 20 mg HS PO 11/01/17 21:00 11/04/17 21:41 (Mysoline) 50 mg TID PO 11/01/17 18:00 11/05/17 13:22 (Aldactone) 25 mg DAILY PO 11/02/17 09:00 11/05/17 09:02 (Duoneb Neb) 1 ampule Q2HR NEB PRN NEB 11/02/17 03:30 11/05/17 01:19 (Lioresal) 20 mg Q8HR PO 11/02/17 14:00 11/05/17 13:23 (Lyrica) 100 mg Q12HR PO 11/02/17 21:00 11/05/17 09:02 (Lotrimin 1% Cream) 1 applic Q12HR TOPICAL 11/03/17 13:44 11/05/17 09:11 (Coumadin) 4 mg DAILY@1600 PO 11/04/17 16:00 Future Hold 11/04/17 15:10 (Prinivil) 10 mg DAILY PO 11/04/17 10:00 11/05/17 09:02 (Percocet 5-325 Mg) 1 tab Q4H PRN PO 11/04/17 16:45 11/05/17 13:05 Pharmacy Profile Note 0 ml @ 0 mls/hr UNSCH PRN OTHER 11/05/17 12:15 Miscellaneous Information SPECIFIC LAB TO BE DRAWN:VANCOMYCIN TROUGH DATE TO... ONCE ONCE .XX 11/07/17 01:45 11/07/17 01:46 Vancomycin HCl 1000 mg/Sodium Chloride 250 ml @ 250 mls/hr Q12H IV 11/05/17 14:00 11/05/17 13:23 A/P Problem List: (1) Cellulitis of right foot ICD Code: L03.115 - Cellulitis of right lower limb Status: Acute (2) UTI (urinary tract infection) ICD Code: N39.0 - Urinary tract infection, site not specified (3) Tinea cruris ICD Code: B35.6 - Tinea cruris (4) Acute metabolic encephalopathy ICD Code: G93.41 - Metabolic encephalopathy Status: Resolved (5) Diabetic neuropathy ICD Code: E11.40 - Type 2 diabetes mellitus with diabetic neuropathy, unspecified Status: Chronic (6) Type 2 diabetes mellitus ICD Code: E11.9 - Type 2 diabetes mellitus without complications Status: Chronic (7) History of TIA (transient ischemic attack) ICD Code: Z86.73 - History of TIA (transient ischemic attack) Status: Chronic (8) Hyperlipemia ICD Code: E78.5 - Hyperlipemia Status: Chronic (9) Hypertension ICD Code: I10 - Hypertension Status: Chronic (10) History of DVT (deep vein thrombosis) ICD Code: Z86.718 - History of DVT (deep vein thrombosis) Status: Chronic Assessment and Plan 62 year old male admitted for AMS and RLE cellulitis. AMS now resolved. Recurrent Cellulitis Right lower extremity ID consulted, initially on vanc and cefepime Not meeting septic criteria Blood cultures with negative to date. Wound care consulted. Pain control with Percocet. Elevate leg PT consulted -recommend SNF placement however patient is refusing to go to rehab. 11/05 ID recommends switching IV antibiotics to oral Augmentin and doxycycline for 10 more days. UTI E. coli on urine culture Initially on IV cefepime. Urine cultures growing E. coli. Tinea cruris Topical clotrimazole BID Encephalopathy Patient presented without the mental status related to most likely metabolic encephalopathy secondary to infectious process as stated above. Encephalopathy resolved. Ammonia and metabolic panel WNL History of DVT Resume warfarin with pharmacy consult for therapeutic dosing and monitoring. 11/05 INR 3.0 -Coumadin dosing as per pharmacy. Coronary artery disease Continue home statin, ASA Stable. Patient denies chest pain COPD Duo Neb PRN Type 2 diabetes mellitus Hold home metformin Accu-Cheks before meals and at bedtime with medium dose NovoLog sliding scale coverage Blood sugars remain stable. Atrial fibrillation Rate controlled and in sinus rhythm Resume Coumadin Resume home Cardizem Essential tremor Continue primidone Hyperlipidemia Continue pravastatin HTN Blood pressure is elevated. Patient has been started on lisinopril 10 mg p.o. daily. Blood pressure much improved. Continue to monitor vital signs. Neuropathy Continue Lyrica and baclofen, seems stable. DVT prophylaxis On home Coumadin with pharmacy dosing FEN Diabetic diet Monitor electrolytes Discharge Planning Discussed the case with case assembler. Patient is medically cleared to be discharged however he states no one at home to care of him today, patient refusing to be discharged to rehab. Will discharge in a.m. Problem Qualifiers (1) Diabetic neuropathy: Qualified Codes: E11.42 - Type 2 diabetes mellitus with diabetic polyneuropathy (2) Hypertension: Qualified Codes: I10 - Essential (primary) hypertension Kavin Robles MD Nov 05, 2017 14:49
[2017-11-05 16:00] VITALS: BP 112/56; PULSE 80; RESP 20; TEMP 98.7; O2SAT 92
--- NOTE | 2017-11-05 16:03 | HHI.FF ---
Face to Face Verification Diagnosis: (1) History of DVT (deep vein thrombosis) (2) Hypertension (3) Hyperlipemia (4) Cellulitis of right leg (5) UTI (urinary tract infection) Physical Therapy Order: Improve ambulation, Strength and gait training Home Health Nursing Order: Wound care and dressing changes Nursing assessment with vital signs IV medication administration I have seen patient Jorge Alberto Contreras on 11/05/17. My clinical findings support the need for the requested home health care services because: Limited ability to care for self Need for psychosocial assistance High risk of falls Infection w/ risk of complications I certify that my clinical findings support that this patient is homebound because: Unsafe to leave home unassisted Qne-[id number]-lsospnor bed/chair Unable to use public transportation Kavin Robles MD Nov 05, 2017 16:02
--- NOTE | 2017-11-05 16:13 | HHI.IDPN ---
Subjective Subjective Remarks pt reported throat tightness aw oral abx (am/cla, doxycyline) That resolved No fever Doing ow OK Antibiotics augmentin doxy Allergies: Coded Allergies: MRI PRECAUTION (Verified Allergy, Severe, ANEURSYM CLIPPING, 06/19/17) diatrizoate meglumine (Unverified Allergy, Severe, SHOCK, 06/19/17) gadobenic acid (Unverified Allergy, Severe, SHOCK, 06/19/17) gadodiamide (Unverified Allergy, Severe, SHOCK, 06/19/17) gadoteridol (Unverified Allergy, Severe, SHOCK, 06/19/17) iodine (Unverified Allergy, Severe, 06/19/17) iodixanol (Unverified Allergy, Severe, SHOCK, 06/19/17) iohexol (Unverified Allergy, Severe, SHOCK, 06/19/17) potassium iodide (Unverified Allergy, Severe, 06/19/17) povidone-iodine (Unverified Allergy, Severe, 06/19/17) sodium iodide (Unverified Allergy, Severe, 06/19/17) sodium iodide (Unverified Allergy, Severe, 06/19/17) Objective . Vital Signs Date Time Temp Pulse Resp B/P (MAP) Pulse Ox O2 Delivery O2 Flow Rate FiO2 11/05/17 12:00 97.5 90 20 154/67 (96) 95 11/05/17 08:00 97.3 82 20 145/64 (91) 95 11/05/17 04:00 97.2 64 20 113/65 (81) 98 11/05/17 01:49 96.8 76 18 140/65 (90) 92 11/05/17 01:22 96 Nasal Cannula 3.00 11/04/17 20:23 96.2 78 20 124/60 (81) 91 11/05/17 11/05/17 11/06/17 15:00 23:00 07:00 Intake Total 240 ml Balance 240 ml Intake Oral 240 ml . Laboratory Tests Test 11/04/17 05:15 White Blood Count 9.3 TH/MM3 Red Blood Count 3.80 MIL/MM3 Hemoglobin 9.2 GM/DL Hematocrit 29.4 % Mean Corpuscular Volume 77.4 FL Mean Corpuscular Hemoglobin 24.1 PG Mean Corpuscular Hemoglobin Concent 31.1 % Red Cell Distribution Width 17.8 % Platelet Count 328 TH/MM3 Mean Platelet Volume 7.7 FL Imaging Last Impressions Head CT 11/01/17 0736 Signed Impressions: Service Date/Time: Wednesday, November 01, 2017 08:36 - CONCLUSION: 1. Stable postsurgical features of prior right cerebral aneurysm clipping. 2. Senescent changes with mild to moderate small vessel periventricular white matter demyelination. 3. No acute abnormality or significant interval change. Benja Steele MD Chest X-Ray 11/01/17 0736 Signed Impressions: Service Date/Time: Wednesday, November 01, 2017 07:55 - CONCLUSION: 1. No acute abnormality identified. Stable compared to previous dated 06/22/17. Foster Whitaker MD Tibia/Fibula X-Ray 11/01/17 0000 Signed Impressions: Service Date/Time: Wednesday, November 01, 2017 07:58 - CONCLUSION: 1. Diffuse soft tissue swelling. 2. No acute bony abnormality. Fsoter Whitakre MD Physical Exam CONSTITUTIONAL/GENERAL: This is a morbidly obese male patient, in no apparent distress. TUBES/LINES/DRAINS: SKIN: No jaundice, rashes, or lesions. . Skin temperature appropriate. Not diaphoretic. CARDIOVASCULAR: Regular rate and rhythm without murmurs, gallops, or rubs. No JVD. Peripheral pulses symmetric. RESPIRATORY/CHEST: Symmetric, unlabored respirations. Clear to auscultation. Breath sounds equal bilaterally. No wheezes, rales, or rhonchi. GASTROINTESTINAL: Abdomen soft, non-tender, nondistended. No hepato-splenomegaly , or palpable masses. No guarding. Bowel sounds present. GENITOURINARY: Without palpable bladder distension. rose in place with clear yellow urine MUSCULOSKELETAL: LLE s/p AKA - well healed RLE with chronic skin changes , icluding pachy dermosis, hyperpigmentaiton and coarse tree bark fortune Not tender to palpation erythema resolved edema siignificantly improved NEUROLOGICAL: Awake and alert. Motor and sensory grossly within normal limits. Follows commands. Clear speech. Moves all extremities. PSYCHIATRIC: No obvious anxiety/depression. no apparent hallucinations or other psychotic thought process. Assessment & Plan Remarks Assessment and Plan Assessment and Plan Morbid obesity with chronic venostatis Celllulitis, recurrent vs chronic in nature UTI, E.coli Reaction to am/clav vs doxycycline change abx to vanco, Rocephoine and cont abx for about 7 days to cmplete [address] Delta gardiner RN dw case mngr Lavonne Robins MD Nov 05, 2017 16:13
--- NOTE | 2017-11-05 16:15 | HHI.FF ---
Infusion Therapy Location of Infusion Therapy: Home [facility] Care IV Infusion Order Patient Information Patient Weight 143.6 kg Diagnosis: Coded Allergies: MRI PRECAUTION (Verified Allergy, Severe, ANEURSYM CLIPPING, 06/19/17) diatrizoate meglumine (Unverified Allergy, Severe, SHOCK, 06/19/17) gadobenic acid (Unverified Allergy, Severe, SHOCK, 06/19/17) gadodiamide (Unverified Allergy, Severe, SHOCK, 06/19/17) gadoteridol (Unverified Allergy, Severe, SHOCK, 06/19/17) iodine (Unverified Allergy, Severe, 06/19/17) iodixanol (Unverified Allergy, Severe, SHOCK, 06/19/17) iohexol (Unverified Allergy, Severe, SHOCK, 06/19/17) potassium iodide (Unverified Allergy, Severe, 06/19/17) povidone-iodine (Unverified Allergy, Severe, 06/19/17) sodium iodide (Unverified Allergy, Severe, 06/19/17) sodium iodide (Unverified Allergy, Severe, 06/19/17) Administer Medication Vancomycin 1 gram IV q 12 hours Start Treatment: Nov 06, 2017 Stop Treatment: Nov 13, 2017 Administer Medication Ceftriaxone 1 gram IV q 24 hours Start Treatment: Nov 06, 2017 Stop Treatment: Nov 13, 2017 Additional Information Venous access: Implanted Port Additional Instructions [x] Peripheral flush and dressing changes per protocol [x] Implanted port and central online trader: * Implanted port: 10 ml Normal Saline followed by 5 ml Heparin 100 units/ml Heparin flush after each use and monthly to maintain. [] May leave port accessed during therapy. [] May leave peripheral site accessed for duration of therapy. [x] If patient has SOB or respiratory distress, check oxygen saturation. If less than 90% or clinical signs of respiratory distress, administer oxygen at 2 L/min. via nasal cannula and notify physician. [x] Anaphylaxis/Reaction orders: * Stop infusion. * Keep IV line open with saline flush. * Notify physician. * Monitor vital signs every 15 minutes until symptoms resolve. * Check Oxygen saturation; Oxygen at 2 L/min. via nasal cannula if less than 90% or clinical signs of respiratory distress. * Administer diphenhydramine (Benadryl) 25 mg IV STAT, (unless patient has received as pre-med). May repeat once, if necessary. * Solu-Cortef 250 mg IVP over 30-60 seconds, use 100 mg vials for each dissolution. * Epinephrine (1mg/1 ml) 0.3 mg subcutaneously or IVP now with any signs of respiratory distress. * Check with physician for new additional pre-med orders if patient is re- challenged or re-treated. [x] May remove PICC line when treatment complete, after confirming with Physician. [x] If the patient is admitted to the hospital, the ED, or transferred via [facility] , complete transfer form including medication reconciliation order sheet. Laboratory Tests Weekly Labs: Creatinine, Vancomycin Trough Lavonne Robins MD Nov 05, 2017 16:15
[2017-11-05] MEDS: PRAVASTATIN SOD 20 MG TAB PO SCH (20:52)
[2017-11-06] VITALS: BP 127/58; PULSE 71; RESP 18; TEMP 96.3; O2SAT 93
[2017-11-06] MEDS: oxyCODONE/ACETAMINOPHEN 5 MG/325 MG TAB PO PRN ×3 (02:54→13:31)
[2017-11-06] MEDS: VANCOMYCIN 1,000 MG/NS 250 ML IV SCH ×4 (02:54→13:31)
[2017-11-06] MEDS: BACLOFEN 20 MG TAB PO SCH ×2 (05:09→13:31)
[2017-11-06 08:00] VITALS: BP 129/64; PULSE 68; RESP 18; TEMP 96.4; O2SAT 93
[2017-11-06] MEDS: INSULIN ASPART SUPPLEMENTAL SCALE SQ SCH ×3 (08:00→17:00)
[2017-11-06 08:38] LABS: INTERNATIONAL NORMALIZED RATIO 2.7 RATIO; PROTHROMBIN TIME - PATIENT 27.5 SEC (9.8-11.6)
[2017-11-06 08:55] LABS: CREATININE 0.59 MG/DL (0.60-1.30)
[2017-11-06] MEDS: SPIRONOLACTONE 25 MG TAB PO SCH (09:44)
[2017-11-06] MEDS: LACTOBACILLUS ACIDOPHILUS TAB PO SCH (09:44)
[2017-11-06] MEDS: PREGABALIN 100 MG CAP PO SCH (09:44)
[2017-11-06] MEDS: LISINOPRIL 10 MG TAB PO SCH (09:44)
[2017-11-06] MEDS: PRIMIDONE 50 MG TAB PO SCH ×2 (09:45→13:31)
[2017-11-06] MEDS: SODIUM CHLORIDE 0.9% FLUSH 10 ML FLUSH IV FLUSH SCH (09:45)
[2017-11-06] MEDS: ASPIRIN 81 MG CHEW TAB CHEW SCH (09:45)
[2017-11-06] MEDS: CLOTRIMAZOLE 1% CREAM 15 GM TOPICAL SCH (09:45)
[2017-11-06] MEDS: DILTIAZEM-CD 240 MG CAP ER PO SCH (09:45)
[2017-11-06 12:00] VITALS: BP 110/54; PULSE 68; RESP 17; TEMP 96.4; O2SAT 94
[2017-11-06] MEDS ORDERED: WARFARIN SOD 3 MG TAB PO SCH (16:00)
[2017-11-07] MEDS ORDERED: PHARMACY ORDERED LAB ONE (01:45)
--- NOTE | 2017-11-11 09:24 | HHI.DS ---
Discharge Summary Admission Date Nov 01, 2017 at 10:23 Discharge Date: Nov 06, 2017 Admitting Diagnosis Right leg cellulitis, AMS (1) Cellulitis of right foot ICD Code: L03.115 - Cellulitis of right lower limb Status: Acute (2) UTI (urinary tract infection) ICD Code: N39.0 - Urinary tract infection, site not specified (3) Tinea cruris ICD Code: B35.6 - Tinea cruris (4) Acute metabolic encephalopathy ICD Code: G93.41 - Metabolic encephalopathy Status: Resolved (5) Diabetic neuropathy ICD Code: E11.40 - Type 2 diabetes mellitus with diabetic neuropathy, unspecified Status: Chronic (6) Type 2 diabetes mellitus ICD Code: E11.9 - Type 2 diabetes mellitus without complications Status: Chronic (7) History of TIA (transient ischemic attack) ICD Code: Z86.73 - History of TIA (transient ischemic attack) Status: Chronic (8) Hyperlipemia ICD Code: E78.5 - Hyperlipemia Status: Chronic (9) Hypertension ICD Code: I10 - Hypertension Status: Chronic (10) History of DVT (deep vein thrombosis) ICD Code: Z86.718 - History of DVT (deep vein thrombosis) Status: Chronic Procedures none Brief History - From Admission 62-year-old male with a past medical history significant for HTN, DM , HLD, CAD s/p previous TX, CVA, PAD, h/o DVT on chronic anticoagulation, history of brain aneurysm status post clipping and chronic RLE lymphedema with recurrent cellulitic infection was brought to the ED for evaluation of mentation change as observed by family members since 11PM last night. When patient presented initially to the ED, he was more somnolent and appeared to fall back asleep easily and will only respond to some questions. However during my exam, patient was more alert although he would occasionally fall back to sleep. He states he could not remember stuff. Head CT on arrival was unchanged from previous study. Patient had unremarkable labs except elevated WBC. ABG with mild CO2 narcosis which is stable for him. Patient is morbidly obese and has a history of a left AKA as well as chronic lymphedema in the right lower extremity. Patient denies any associated complaints of recent illness, cough, chest pain, palpitations, shortness of breath, nausea, vomiting or abdominal pain. His last hospitalization was for recurrent right leg cellulitis. Imaging Last Impressions Head CT 11/01/17 0736 Signed Impressions: Service Date/Time: Wednesday, November 01, 2017 08:36 - CONCLUSION: 1. Stable postsurgical features of prior right cerebral aneurysm clipping. 2. Senescent changes with mild to moderate small vessel periventricular white matter demyelination. 3. No acute abnormality or significant interval change. Benja Steele MD Chest X-Ray 11/01/17 0736 Signed Impressions: Service Date/Time: Wednesday, November 01, 2017 07:55 - CONCLUSION: 1. No acute abnormality identified. Stable compared to previous dated 06/22/17. Foster Whitaker MD Tibia/Fibula X-Ray 11/01/17 0000 Signed Impressions: Service Date/Time: Wednesday, November 01, 2017 07:58 - CONCLUSION: 1. Diffuse soft tissue swelling. 2. No acute bony abnormality. Foster Whitaker MD PE at Discharge GENERAL: Obese male laying in bed in [facility]. SKIN: Warm and dry. See further details under extremities. HEENT: Pupils equal and round. MMM. NECK: Large neck habitus that is nontender but difficult to appreciate any significant LAD or JVD. HEART: RRR no m/r/g. LUNGS: Clear with occasional scattered wheezing. ABDOMEN: Soft, NT, ND. EXTREMITIES: Left AKA; stub clean and dry. RLE with improved edema and changes consistent with chronic edema. Erythema now much improved. NEURO: Awake and alert. Pt Condition on Discharge: Stable Discharge Disposition: Disch w/ Home Health Serv Discharge Time: > 30 minutes Discharge Instructions DIET: Follow Instructions for: Diabetic Diet Activities you can perform: See Additionl Instruction Other Activity Instructions: As per Pt instructions OOB with assistance only Follow up Referrals: Appointment for Follow Up with [facility]: [phone] [facility]/ with NURSE OPERATIONS INTERN: [phone] New Medications: Lisinopril (Lisinopril) 10 Mg Tab 10 MG PO DAILY for Blood Pressure Management, #30 TAB Pregabalin (Lyrica) 100 Mg Cap 100 MG PO Q12HR for neuropathy, #60 CAP Warfarin (Coumadin) 4 Mg Tab 4 MG PO DAILY@1600 for Blood Pressure Management, #30 TAB Start taking after INR falls below 3 Continued Medications: Aspirin (Aspirin) 81 Mg Chew 81 MG CHEW DAILY, TAB 0 Refills Diltiazem CD 24 HR (Diltiazem CD 24 HR) 240 Mg Caper 240 MG PO DAILY, #30 CAP 0 Refills Diphenhydramine (Diphenhydramine) 25 Mg Cap 25 MG PO HS PRN for INSOMNIA, CAP 0 Refills Ferrous Sulfate (Ferrous Sulfate) 325 Mg (65 Mg Iron) Tablet 325 MG PO TIDPC for Nutritional Supplement, #90 TAB 0 Refills Folic Acid (Folic Acid) 0.8 Mg Tab 1000 MCG PO DAILY for Nutritional Supplement, TAB 0 Refills Glipizide (Glipizide) 10 Mg Tab 20 MG PO BID for Blood Sugar Management, #60 TAB 0 Refills Take 30 minutes before a meal Metformin (Metformin) 500 Mg Tab 1000 MG PO DAILY IN THE PM for Blood Sugar Management, #60 TAB 0 Refills Oxygen (O2) (Oxygen (O2)) Device LITER TI.CANULA CONTINUOUS for Prevent Hypoxemia, #2 Oxygen Concentrator Portable Gaseous 2 L/min via Nasal Canula Continuous For 99 months Pravastatin (Pravastatin) 20 Mg Tab 20 MG PO HS for Cholesterol Management, #30 TAB 0 Refills Primidone (Primidone) 50 Mg Tab 50 MG PO TID for Control Seizures, #60 TAB 0 Refills Spironolactone (Spironolactone) 25 Mg Tab 25 MG PO DAILY, #30 TAB 0 Refills Venlafaxine ER 24 HR (Venlafaxine ER 24 HR) 150 Mg Tab 300 MG PO DAILY, #30 TAB 0 Refills Discontinued Medications: Warfarin (Warfarin) 5 Mg Tab 5 MG PO DAILY for Blood Clot Prevention, #30 TAB 0 Refills Kavin Robles MD Nov 11, 2017 09:24
== END 2017-11-06 17:42 | disposition home health service (06) | DRG 602 ==
LOC: NEPE 07:26 → NEDA 10:23 → N07B 13:22
PROVIDERS: ADMIT Hospitalist; ATTEND Hospitalist
DX: L03.115 Cellulitis of right lower limb (principal); G93.41 Metabolic encephalopathy; E11.40 Type 2 diabetes mellitus with diabetic neuropathy, unspecified; Z79.84 Long term (current) use of oral hypoglycemic drugs; I42.9 Cardiomyopathy, unspecified; I11.0 Hypertensive heart disease with heart failure; I50.9 Heart failure, unspecified; Z68.41 Body mass index [BMI] 40.0-44.9, adult; N39.0 Urinary tract infection, site not specified; B96.20 Unspecified Escherichia coli [E. coli] as the cause of diseases classified elsewhere; I48.91 Unspecified atrial fibrillation; Z79.01 Long term (current) use of anticoagulants; B35.6 Tinea cruris; G40.909 Epilepsy, unspecified, not intractable, without status epilepticus; I25.10 Atherosclerotic heart disease of native coronary artery without angina pectoris; I25.2 Old myocardial infarction; E78.5 Hyperlipidemia, unspecified; Z86.73 Personal history of transient ischemic attack (TIA), and cerebral infarction without residual deficits; Z86.718 Personal history of other venous thrombosis and embolism; I73.9 Peripheral vascular disease, unspecified; I89.0 Lymphedema, not elsewhere classified; Z89.612 Acquired absence of left leg above knee; E66.01 Morbid (severe) obesity due to excess calories; Z79.82 Long term (current) use of aspirin; F17.210 Nicotine dependence, cigarettes, uncomplicated; J44.9 Chronic obstructive pulmonary disease, unspecified; Z99.81 Dependence on supplemental oxygen; G25.0 Essential tremor
CPT/HCPCS: 36600; 70450; 71045; 73590; 80048; 80053; 80202; 80307; 81001; 82140; 82550; 82565; 82805; 82948; 83605; 83880; 84484; 85025; 85027; 85610; 85730; 87040; 87077; 87086; 87186; 87804; 93005; 94150; 94640; 94664; 96365; 96375; J0692; J1200; J1644; J1815; J2405; J2930; J3370; J7030; J7050

== ENCOUNTER 2017-11-08 17:36 | Inpatient (IN) | payer OTHER, MEDICARE ==
[2017-11-08] VITALS (10 sets, daily range): BP systolic 114–129; BP diastolic 56–79; PULSE 77–88; RESP 22–37; TEMP 98.1; O2SAT 89–100
[~2017-11-08] VITALS: Ht 188 cm; Wt 98.0 kg
[~2017-11-08 17:36] MED LIST changes: +ASPI-516 CHEW; -BACL10TA PO; -CLIN150 PO; +COUM4TAB PO; +DIPH25CA PO; -ENOX150I SQ; +FERR325T18 PO; +FOLI800T PO; -FURO1TAB62 PO; -GABA100C4 PO; -LEVA750T9 PO; +LISI10TA3 PO; -NYST100084 TOPICAL; -OXYC-392 PO; -POTA10CA PO; -WARF-23 PO
[2017-11-08 18:43] LABS: BASOPHIL # 0.1 TH/MM3 (0-0.2); EOSINOPHIL # 0.5 TH/MM3 (0-0.4); EOSINOPHIL % 3.7 % (0.0-4.0); HEMATOCRIT 29.1 % (39.0-51.0); HEMOGLOBIN 9.3 GM/DL (13.0-17.0); LYMPH % 22.4 % (9.0-44.0); LYMPHOCYTE # 2.8 TH/MM3 (1.0-4.8); MEAN CORPUSCULAR HEMOGLOBIN 24.7 PG (27.0-34.0); MEAN PLATELET VOLUME 7.8 FL (7.0-11.0); MONO % 7.9 % (0.0-8.0); PLATELET COUNT 353 TH/MM3 (150-450); RED BLOOD COUNT 3.78 MIL/MM3 (4.50-5.90); WHITE BLOOD COUNT 12.3 TH/MM3 (4.0-11.0)
--- NOTE | 2017-11-08 19:08 | PD ---
HPI Chief Complaint: Altered Mental Status Time Seen by Provider: 18:11 Travel History International Travel<30 days: No Contact w/Intl Traveler<30days: No Traveled to known affect area: No History of Present Illness HPI This is a 62-year-old male with a history of diabetes mellitus, COPD, chronic right lower extremity cellulitis, who presents today with complaints of feeling not herself. Patient states he feels as though he is drunk although has not been drinking any alcohol. He denies any fevers, chills. He denies any chest pain, chest pressure. Reports cough with white clear phlegm. The patient was just recently admitted to the hospital discharge 2 days ago. He reports still smoking cigarettes. He reports he smoked 3 cigarettes today. PFSH Past Medical History Hx Anticoagulant Therapy: Yes Arthritis: Yes (OA) Asthma: No Atrial Fibrillation: Yes Autoimmune Disease: No Blood Disorders: Yes (PT. HAS HISTORY OF BLOOD CLOTS.) Anxiety: No Depression: No Heart Rhythm Problems: Yes Cardiac Catheterization: Yes Cardiomyopathy: Yes Cardiovascular Problems: Yes (CT) High Cholesterol: Yes Chemotherapy: No Chest Pain: Yes Congestive Heart Failure: Yes COPD: Yes Cerebrovascular Accident: Yes (TIA) Coronary Artery Disease: Yes Diabetes: Yes Patient Takes Glucophage: Yes Diminished Hearing: No Deep Vein Thrombosis: Yes Endocrine: Yes Gastrointestinal Disorders: No GERD: No Glaucoma: No Genitourinary: No Headaches: Yes Hepatitis: No Hiatal Hernia: No Heparin Induced Thrombocytopen: No Hypertension: Yes Immune Disorder: No Implanted Vascular Access Dvce: Yes (LEFT CHEST ) Kidney Stones: No Medical other: Yes Neurologic: Yes (BRAIN SURGERY, ANEURYSM CLIPPED IN 1990, ESSENTIAL TREMORS) Psychiatric: No Reproductive: No Respiratory: Yes (COPD) Integumentary: Yes (CELLULITIS, WOUND RN DAILY ) Migraines: Yes Myocardial Infarction: Yes (X 2) Radiation Therapy: No Renal Failure: No Sickle Cell Disease: No Sleep Apnea: Yes Thyroid Disease: No Ulcer: No Tetanus Vaccination: > 5 Years Influenza Vaccination: No Past Surgical History Abdominal Surgery: Yes (APPENDECTOMY 1954) AICD: No Appendectomy: Yes Arteriovenous Shunt: No Body Medical Devices: BRAIN CLIPS, Cardiac Surgery: No Cholecystectomy: No Ear Surgery: No Endocrine Surgery: No Eye Surgery: No Genitourinary Surgery: No Gynecologic Surgery: No Insulin Pump: No Joint Replacement: No Neurologic Surgery: Yes (BRAIN ANURYSIM CLIPPED IN 1990.) Oral Surgery: No Pacemaker: No Thoracic Surgery: Yes (TENSION PNEUMOTHORAX-CHEST TUBE --RIGHT 71) Tonsillectomy: Yes (1956) Other Surgery: Yes (brain and back sx) Social History Alcohol Use: Yes (SMALL AMOUNT) Tobacco Use: Yes (4 cig a day) Substance Use: No Allergies-Medications (Allergen,Severity, Reaction): Coded Allergies: MRI PRECAUTION (Verified Allergy, Severe, ANEURSYM CLIPPING, 11/08/17) diatrizoate meglumine (Unverified Allergy, Severe, SHOCK, 11/08/17) gadobenic acid (Unverified Allergy, Severe, SHOCK, 11/08/17) gadodiamide (Unverified Allergy, Severe, SHOCK, 11/08/17) gadoteridol (Unverified Allergy, Severe, SHOCK, 11/08/17) iodine (Unverified Allergy, Severe, 11/08/17) iodixanol (Unverified Allergy, Severe, SHOCK, 11/08/17) iohexol (Unverified Allergy, Severe, SHOCK, 11/08/17) potassium iodide (Unverified Allergy, Severe, 11/08/17) povidone-iodine (Unverified Allergy, Severe, 11/08/17) sodium iodide (Unverified Allergy, Severe, 11/08/17) sodium iodide (Unverified Allergy, Severe, 11/08/17) Reported Meds & Prescriptions Reported Meds & Active Scripts Active Lyrica (Pregabalin) 100 Mg Cap 100 Mg PO Q12HR Lisinopril 10 Mg Tab 10 Mg PO DAILY Coumadin (Warfarin) 4 Mg Tab 4 Mg PO DAILY@1600 Start taking after INR falls below 3 Oxygen (O2) Device Liter TI.CANULA CONTINUOUS Oxygen Concentrator Portable Gaseous 2 L/min via Nasal Canula Continuous For 99 months Reported Diphenhydramine (Diphenhydramine HCl) 25 Mg Cap 25 Mg PO HS PRN Folic Acid 0.8 Mg Tab 1,000 Mcg PO DAILY Aspirin 81 Mg Chew 81 Mg CHEW DAILY Ferrous Sulfate 325 Mg (65 Mg Iron) Tablet 325 Mg PO TIDPC Glipizide 10 Mg Tab 20 Mg PO BID Take 30 minutes before a meal Venlafaxine ER 24 HR (Venlafaxine HCl) 150 Mg Tab 300 Mg PO DAILY Diltiazem CD 24 HR 240 Mg Caper 240 Mg PO DAILY Primidone 50 Mg Tab 50 Mg PO TID Pravastatin 20 Mg Tab 20 Mg PO HS Metformin (Metformin HCl) 500 Mg Tab 1,000 Mg PO DAILY IN THE PM Spironolactone 25 Mg Tab 25 Mg PO DAILY Review of Systems Except as stated in HPI: all other systems reviewed are Neg General / Constitutional: No: Fever, Chills HENT: Positive: Lightheadedness, No: Headaches, Neck Pain Cardiovascular: No: Chest Pain or Discomfort, Palpitations Respiratory: Positive: Cough, Shortness of Breath, Wheezing (Productive white phlegm) Gastrointestinal: No: Nausea, Vomiting, Abdominal Pain Genitourinary: No: Dysuria, Decreased Urinary Output Musculoskeletal: Positive: Edema, Pain (Chronic right lower extremity pain), Other Skin: Positive Dryness (Cellulitis of the right lower extremity right lower extremity), Positive Lesions Neurologic: Positive: Change in Mentation (Intoxicated sensation.), No: Weakness, Dizziness Physical Exam Narrative GENERAL: Well-developed well-nourished male in moderate respiratory discomfort. SKIN: Focused skin assessment warm/dry. HEAD: Atraumatic. Normocephalic. EYES: No scleral icterus. No injection or drainage. ENT: No nasal bleeding or discharge. Mucous membranes pink and moist. NECK: Trachea midline. Supple. CARDIOVASCULAR: Regular rate and rhythm. No murmur appreciated. RESPIRATORY: Expiratory wheezes heard bilateral bases. No rales appreciated. GASTROINTESTINAL: Abdomen soft, non-tender, nondistended. EXTREMITIES: Chronic venous stasis changes and chronic cellulitic changes of the right lower extremity with scaling of the skin. No drainage. Previous left lower extremity amputation NEUROLOGICAL: Awake and alert. No obvious cranial nerve deficits. Motor grossly within normal limits. Normal speech, no slurring. Patient reports he feels "drunk". Data Data Last Documented VS Vital Signs Date Time Temp Pulse Resp B/P (MAP) Pulse Ox O2 Delivery O2 Flow Rate FiO2 11/08/17 18:49 98 2.00 11/08/17 17:42 98.1 88 22 114/56 (75) Orders Orders Electrocardiogram (11/08/17 18:11) Complete Blood Count With Diff (11/08/17 18:11) Comprehensive Metabolic Panel (11/08/17 18:11) Ckmb (Isoenzyme) Profile (11/08/17 18:11) Troponin I (11/08/17 18:11) Arterial Blood Gas (Abg) (11/08/17 18:11) Lipase (11/08/17 18:11) Urinalysis - C+S If Indicated (11/08/17 18:11) Chest, Single Ap (11/08/17 18:11) Iv Access Insert/Monitor (11/08/17 18:11) Ecg Monitoring (11/08/17 18:11) Oximetry (11/08/17 18:11) Labs Laboratory Tests Test 11/08/17 18:15 11/08/17 18:34 White Blood Count 12.3 TH/MM3 Red Blood Count 3.78 MIL/MM3 Hemoglobin 9.3 GM/DL Hematocrit 29.1 % Mean Corpuscular Volume 77.0 FL Mean Corpuscular Hemoglobin 24.7 PG Mean Corpuscular Hemoglobin Concent 32.0 % Red Cell Distribution Width 19.0 % Platelet Count 353 TH/MM3 Mean Platelet Volume 7.8 FL Neutrophils (%) (Auto) 65.0 % Lymphocytes (%) (Auto) 22.4 % Monocytes (%) (Auto) 7.9 % Eosinophils (%) (Auto) 3.7 % Basophils (%) (Auto) 1.0 % Neutrophils # (Auto) 8.0 TH/MM3 Lymphocytes # (Auto) 2.8 TH/MM3 Monocytes # (Auto) 1.0 TH/MM3 Eosinophils # (Auto) 0.5 TH/MM3 Basophils # (Auto) 0.1 TH/MM3 CBC Comment DIFF FINAL Differential Comment MDM Medical Decision Making Medical Screen Exam Complete: Yes Emergency Medical Condition: Yes Differential Diagnosis COPD exacerbation versus pneumonia versus CHF Narrative Course 62-year-old male with history of COPD, diabetes mellitus, hypertension, chronic cellulitis of the right lower extremity, presents today with complaints of sensation of feeling drunk. Patient had a blood gas that showed a pH of 7.32, PCO2 of 62.9, PO2 of 96.4. The patient's last blood glass showed a PCO2 of 50. There is likely mental status changes secondary to the elevated PCO2. He has been placed on BiPAP. The patient will be signed out to Dr. Spencer as the rest of his labs are pending at this time. EKG shows no evidence of acute ST elevation or depression. The patient will likely need admission. Diagnosis Primary Impression: Altered sensorium Additional Impressions: Hypercapnia Cellulitis of right leg Hypertension Type 2 diabetes mellitus Smoker in home Morbidly obese History of DVT (deep vein thrombosis) Louis Cabello MD Nov 08, 2017 19:08
--- NOTE | 2017-11-08 19:09 | RADRPT ---
EXAM DATE/TIME: 11/08/2017 18:48 [facility] COMPARISON: CHEST SINGLE AP, November 01, 2017, 7:55. INDICATIONS : Shortness of breath MEDICAL HISTORY : Diabetes mellitus type II. Chronic obstructive pulmonary disease. Cardiovascular disease SURGICAL HISTORY : None. ENCOUNTER: Initial ACUITY: 1 day PAIN SCORE: 10/10 LOCATION: Bilateral chest FINDINGS: Stable left IJ [id number]. No new focal pleural or parenchymal opacities. Cardiomediastinal contou rs are stable. Remainder of exam is unchanged. CONCLUSION: 1. No acute abnormality or significant interval change. Benja Steele MD on November 08, 2017 at 19:07 Board Certified Radiologist. This report was verified electronically.
[2017-11-08 19:53] LABS: ALT (GPT) 10 U/L (12-78)
[2017-11-08 19:56] LABS: ALKALINE PHOSPHATASE 47 U/L (45-117); TOTAL BILIRUBIN ADULT 0.3 MG/DL (0.2-1.0); TOTAL PROTEIN 7.6 GM/DL (6.4-8.2); TROPONIN I LESS THAN 0.02 NG/ML (0.02-0.05)
[2017-11-08 19:58] LABS: ALBUMIN 2.7 GM/DL (3.4-5.0); AST (GOT) 19 U/L (15-37); BICARBONATE 33.3 MEQ/L (21.0-32.0); BLOOD UREA NITROGEN 13 MG/DL (7-18); CALCIUM 8.4 MG/DL (8.5-10.1); CHLORIDE 98 MEQ/L (98-107); CREATININE 0.79 MG/DL (0.60-1.30); GLOMERULAR FILTRATION RATE 99 ML/MIN (>89); GLUCOSE,RANDOM 57 MG/DL (74-106); SODIUM (NA) 134 MEQ/L (136-145)
[2017-11-08] MEDS ORDERED: BISACODYL 10 MG SUPP RECTAL PRN (20:30)
[2017-11-08] MEDS ORDERED: SODIUM CHLORIDE 0.9% FLUSH 10 ML FLUSH IV FLUSH PRN (20:30)
[2017-11-08] MEDS ORDERED: CHLORHEXIDINE GLUCONATE 2 % 1 PACK (2 CLOTHS) TOP PRN (20:30)
[2017-11-08] MEDS ORDERED: SENNOSIDES 8.6 MG TAB PO PRN (20:30)
[2017-11-08] MEDS ORDERED: MISCELLANEOUS NURSING INFORMATION XX SCH (20:30)
[2017-11-08] MEDS ORDERED: MAGNESIUM HYDROXIDE SUSP 30 ML CUP PO PRN (20:30)
[2017-11-08] MEDS ORDERED: TEMAZEPAM 15 MG CAP PO PRN (20:30)
[2017-11-08] MEDS ORDERED: RESP: ALBUTEROL 2.5 MG/IPRATROPIUM 0.5 MG NEB (PRN) INH (20:30)
[2017-11-08] MEDS ORDERED: LACTULOSE SYRUP 20 GM/30 ML CUP PO PRN (20:30)
[2017-11-08] MEDS ORDERED: diphenhydrAMINE HCL 25 MG CAP PO PRN (20:30)
--- NOTE | 2017-11-08 20:31 | HHI.HP ---
[facility] Service Critical Care Medicine Primary Care Physician [facility] Admission Diagnosis Diagnosis: Travel History International Travel<30 Days: No Contact w/Intl Traveler <30 Da: No Traveled to Known Affected Are: No History of Present Illness 62-year-old male with a history of diabetes mellitus, COPD, chronic right lower extremity cellulitis, presents today with complaints of feeling not well. Patient states he feels as though he is drunk although has not been drinking any alcohol. He denies any fevers, chills. He denies any chest pain, chest pressure. Reports cough with white clear phlegm. The patient was just recently admitted to the hospital discharge 2 days ago. He reports still smoking cigarettes. He reports he smoked 3 cigarettes today. In the emergency department he was placed on the BiPAP with significant improvement in mentation and oxygenation. Review of Systems ROS Unobtainable patient facemask BiPAP Past Family Social History Allergies: Coded Allergies: MRI PRECAUTION (Verified Allergy, Severe, ANEURSYM CLIPPING, 11/08/17) diatrizoate meglumine (Unverified Allergy, Severe, SHOCK, 11/08/17) gadobenic acid (Unverified Allergy, Severe, SHOCK, 11/08/17) gadodiamide (Unverified Allergy, Severe, SHOCK, 11/08/17) gadoteridol (Unverified Allergy, Severe, SHOCK, 11/08/17) iodine (Unverified Allergy, Severe, 11/08/17) iodixanol (Unverified Allergy, Severe, SHOCK, 11/08/17) iohexol (Unverified Allergy, Severe, SHOCK, 11/08/17) potassium iodide (Unverified Allergy, Severe, 11/08/17) povidone-iodine (Unverified Allergy, Severe, 11/08/17) sodium iodide (Unverified Allergy, Severe, 11/08/17) sodium iodide (Unverified Allergy, Severe, 11/08/17) Past Medical History Diabetes Mellitus Chronic right leg lymphedema Recurrent cellulitis Recurrent DVTs Hyperlipidemia Atrial fibrillation Cardiomyopathy Congestive heart failure Coronary artery disease Multiple CVAs and TIAs Endocarditis Hypertension COPD Migraines Essential tremors Osteoarthritis Degenerative disc disease Past Surgical History Right subclavian port placement Left leg amputation Brain surgery with aneurysm clipping Fibrous tumor removed from back Knee surgery Elbow surgery Tonsillectomy Appendectomy Reported Medications Reported Meds & Active Scripts Active Lyrica (Pregabalin) 100 Mg Cap 100 Mg PO Q12HR Lisinopril 10 Mg Tab 10 Mg PO DAILY Coumadin (Warfarin) 4 Mg Tab 4 Mg PO DAILY@1600 Start taking after INR falls below 3 Oxygen (O2) Device Liter TI.CANULA CONTINUOUS Oxygen Concentrator Portable Gaseous 2 L/min via Nasal Canula Continuous For 99 months Reported Diphenhydramine (Diphenhydramine HCl) 25 Mg Cap 25 Mg PO HS PRN Folic Acid 0.8 Mg Tab 1,000 Mcg PO DAILY Aspirin 81 Mg Chew 81 Mg CHEW DAILY Ferrous Sulfate 325 Mg (65 Mg Iron) Tablet 325 Mg PO TIDPC Glipizide 10 Mg Tab 20 Mg PO BID Take 30 minutes before a meal Venlafaxine ER 24 HR (Venlafaxine HCl) 150 Mg Tab 300 Mg PO DAILY Diltiazem CD 24 HR 240 Mg Caper 240 Mg PO DAILY Primidone 50 Mg Tab 50 Mg PO TID Pravastatin 20 Mg Tab 20 Mg PO HS Metformin (Metformin HCl) 500 Mg Tab 1,000 Mg PO DAILY IN THE PM Spironolactone 25 Mg Tab 25 Mg PO DAILY Active Ordered Medications Current Medications Medications (Trade) Dose Ordered Sig/Carrie Route PRN Reason Start Time Stop Time Status Last Admin Dose Admin Aspirin (Aspirin Chew) 81 mg DAILY CHEW 11/09/17 09:00 UNV Diltiazem HCl (Cardizem Cd) 240 mg DAILY PO 11/09/17 09:00 UNV Diphenhydramine HCl (Benadryl) 25 mg HS PRN PO INSOMNIA 11/08/17 20:30 UNV Ferrous Sulfate (Ferrous Sulfate) 325 mg TIDPC PO 11/09/17 09:30 UNV Folic Acid (Folate) 1 mg DAILY PO 11/09/17 09:00 UNV Glipizide (Glucotrol) 20 mg BID PO 11/08/17 21:00 UNV Lisinopril (Prinivil) 10 mg DAILY PO 11/09/17 09:00 UNV Pravastatin Sodium (Pravachol) 20 mg HS PO 11/08/17 21:00 UNV Pregabalin (Lyrica) 100 mg Q12HR PO 11/08/17 21:00 UNV Primidone (Mysoline) 50 mg TID PO 11/09/17 09:00 UNV Spironolactone (Aldactone) 25 mg DAILY PO 11/09/17 09:00 UNV Venlafaxine HCl (Effexor Xr) 300 mg DAILY PO 11/09/17 09:00 UNV Warfarin Sodium (Coumadin) 4 mg DAILY@1600 PO 11/09/17 16:00 UNV Sodium Chloride (NS Flush) 2 ml UNSCH PRN IV FLUSH FLUSH AFTER USING IV ACCESS 11/08/17 20:30 UNV Sodium Chloride (NS Flush) 2 ml BID IV FLUSH 11/08/17 21:00 UNV Acetaminophen (Tylenol) 650 mg Q6H PRN PO PAIN 1-10 AND/OR FEVER >101F 11/08/17 20:30 UNV Famotidine (Pepcid Inj) 20 mg Q12HR IV PUSH 11/08/17 21:00 UNV Temazepam (Restoril) 15 mg HS PRN PO INSOMNIA 11/08/17 20:30 UNV Albuterol/ Ipratropium (Duoneb Neb) 1 ampule Q4HR NEB INH 11/09/17 00:00 UNV Albuterol/ Ipratropium (Duoneb Neb) 1 ampule Q2HR NEB PRN INH WHEEZING 11/08/17 20:30 UNV Heparin Sodium (Porcine) (Heparin Inj) 5,000 units Q8H SQ 11/08/17 20:30 UNV Miscellaneous Information 1 Q361D XX 11/08/17 20:30 UNV Chlorhexidine Gluconate (Chlorhexidine 2% Cloth) 3 pack Taper DAILY@04 TOP 11/09/17 04:00 11/05/18 03:59 UNV Chlorhexidine Gluconate (Chlorhexidine 2% Cloth) 3 pack UNSCH PRN TOP HYGIENIC CARE 11/08/17 20:30 UNV Senna/Docusate Sodium (Albertina-Colace) 1 tab BID PO 11/08/17 21:00 UNV Magnesium Hydroxide (Milk Of Magnesia Liq) 30 ml Q12H PRN PO Mild constipation 11/08/17 20:30 UNV Sennosides (Senokot) 17.2 mg Q12H PRN PO Moderate constipation 11/08/17 20:30 UNV Bisacodyl (Dulcolax Supp) 10 mg DAILY PRN RECTAL SEVERE CONSITIPATION 11/08/17 20:30 UNV Lactulose (Lactulose Liq) 30 ml DAILY PRN PO SEVERE CONSITIPATION 11/08/17 20:30 UNV Methylprednisolone Sodium Succinate (SoluMEDROL INJ) 40 mg Q6HR IV PUSH 11/09/17 00:00 UNV Doxycycline Hyclate (Vibratab) 100 mg Q12HR PO 11/08/17 21:00 UNV Family History Patient is adopted and does not know family history from ; his son has had multiple aneurysms treated by Dr. Sepulveda Social History Tobacco: Smokes 4 cigarettes per day Alcohol: denies Illicit Drugs: denies Physical Exam Vital Signs Vital Signs Date Time Temp Pulse Resp B/P (MAP) Pulse Ox O2 Delivery O2 Flow Rate FiO2 11/08/17 20:00 77 22 123/71 (88) 95 BiPAP 45 11/08/17 19:54 CPAP 45 11/08/17 19:14 79 22 114/64 (81) 100 BiPAP 65 11/08/17 18:49 98 2.00 11/08/17 17:46 5.00 11/08/17 17:42 98.1 88 22 114/56 (75) 98 Physical Exam GENERAL: Morbidly obese male in moderate respiratory discomfort. SKIN: Focused skin assessment warm/dry. HEAD: Atraumatic. Normocephalic. EYES: No scleral icterus. No injection or drainage. ENT: No nasal bleeding or discharge. Mucous membranes pink and moist. NECK: Trachea midline. Supple. CARDIOVASCULAR: Regular rate and rhythm. No murmur appreciated. RESPIRATORY: Expiratory wheezes heard bilateral bases. No rales appreciated. GASTROINTESTINAL: Abdomen soft, non-tender, nondistended. EXTREMITIES: Chronic venous stasis changes and chronic cellulitic changes of the right lower extremity with scaling of the skin. No drainage. Previous left lower extremity amputation NEUROLOGICAL: Awake and alert. No obvious cranial nerve deficits. Motor grossly within normal limits. Normal speech, no slurring. Laboratory Laboratory Tests Test 11/08/17 18:15 11/08/17 18:34 11/08/17 19:12 White Blood Count 12.3 Red Blood Count 3.78 Hemoglobin 9.3 Hematocrit 29.1 Mean Corpuscular Volume 77.0 Mean Corpuscular Hemoglobin 24.7 Mean Corpuscular Hemoglobin Concent 32.0 Red Cell Distribution Width 19.0 Platelet Count 353 Mean Platelet Volume 7.8 Neutrophils (%) (Auto) 65.0 Lymphocytes (%) (Auto) 22.4 Monocytes (%) (Auto) 7.9 Eosinophils (%) (Auto) 3.7 Basophils (%) (Auto) 1.0 Neutrophils # (Auto) 8.0 Lymphocytes # (Auto) 2.8 Monocytes # (Auto) 1.0 Eosinophils # (Auto) 0.5 Basophils # (Auto) 0.1 CBC Comment DIFF FINAL Differential Comment Blood Urea Nitrogen 13 Creatinine 0.79 Random Glucose 57 Total Protein 7.6 Albumin 2.7 Calcium Level 8.4 Alkaline Phosphatase 47 Aspartate Amino Transf (AST/SGOT) 19 Alanine Aminotransferase (ALT/SGPT) 10 Total Bilirubin 0.3 Sodium Level 134 Potassium Level 4.4 Chloride Level 98 Carbon Dioxide Level 33.3 Anion Gap 3 Estimat Glomerular Filtration Rate 99 Total Creatine Kinase 50 Troponin I LESS THAN 0.02 Lipase 87 Result Diagram: 11/08/17181411/08/171911 Imaging Last 24 hours Impressions Chest X-Ray 11/08/171810 Signed Impressions: Service Date/Time: Wednesday, November 08, 2017 18:48 - CONCLUSION: 1. No acute abnormality or significant interval change. Benja Steele MD Septic Shock Reassessment Septic shock perfusion: reassessment completed Caprini VTE Risk Assessment Caprini VTE Risk Assessment: Mod/High Risk (score >= 2) Caprini Risk Assessment Model Point Value = 1 Point Value = 2 Point Value = 3 Point Value = 5 Age 41-60 Minor surgery BMI > 25 kg/m2 Swollen legs Varicose veins or History of unexplained or recurrent spontaneous Oral contraceptives or hormone replacement Sepsis (< 1 month) Serious lung disease, including pneumonia (< 1 month) Abnormal pulmonary function Acute myocardial infarction Congestive heart failure (< 1 month) History of inflammatory bowel disease Medical patient at bed rest Age 61-74 Arthroscopic surgery Major open surgery (> 45 min) Laparoscopic surgery (> 45 min) Malignancy Confined to bed (> 72 hours) Immobilizing plaster cast Central venous access Age >= 75 History of VTE Family history of VTE Factor V Leiden Prothrombin [id number] Lupus anticoagulant Anticardiolipin antibodies Elevated serum homocysteine Heparin-induced thrombocytopenia Other congenital or acquired thrombophilia Stroke (< 1 month) Elective arthroplasty Hip, pelvis, or leg fracture Acute spinal cord injury (< 1 month) Prophylaxis Regimen Total Risk Factor Score Risk Level Prophylaxis Regimen 0-1 Low Early ambulation 2 Moderate Order ONE of the following: *Sequential Compression Device (SCD) *Heparin 5000 units SQ BID 3-4 Higher Order ONE of the following medications: *Heparin 5000 units SQ TID *Enoxaparin/Lovenox 40 mg SQ daily (WT < 150 kg, CrCl > 30 mL/min) *Enoxaparin/Lovenox 30 mg SQ daily (WT < 150 kg, CrCl > 10-29 mL/min) *Enoxaparin/Lovenox 30 mg SQ BID (WT < 150 kg, CrCl > 30 mL/min) AND/OR *Sequential Compression Device (SCD) 5 or more Highest Order ONE of the following medications: *Heparin 5000 units SQ TID (Preferred with Epidurals) *Enoxaparin/Lovenox 40 mg SQ daily (WT < 150 kg, CrCl > 30 mL/min) *Enoxaparin/Lovenox 30 mg SQ daily (WT < 150 kg, CrCl > 10-29 mL/min) *Enoxaparin/Lovenox 30 mg SQ BID (WT < 150 kg, CrCl > 30 mL/min) AND *Sequential Compression Device (SCD) Assessment and Plan Assessment and Plan Respiratory failure - COPD exacerbation - Untreated JYOTSNA - BiPAP at bedtime and when necessary - DuoNeb scheduled and when necessary - IV steroids - Empiric antibiotic - Pulmonary consultation Chronic Cellulitis Right lower extremity - Monitor History of DVT - warfarin with pharmacy consult for therapeutic dosing and monitoring Coronary artery disease - Continue home statin, ASA Type 2 diabetes mellitus - Hold home metformin while in the ICU - Insulin sliding scale - Continue glipizide and ADA diet Atrial fibrillation - Continue Coumadin per pharmacy - Continue Cardizem Seizure disorder/Tremor - Resume primidone Hyperlipidemia - pravastatin DVT GI prophylaxis - Coumadin - Pepcid Critical Care: The total critical care time was 35 minutes. Time to perform other separately billable procedures was not included in the critical care time. Adrian Aburto MD Nov 08, 2017 20:31
[2017-11-08] MEDS: glipiZIDE 10 MG TAB PO SCH (21:00)
[2017-11-08] MEDS ORDERED: GLUCAGON 1 MG/ML VIAL OTHER PRN (22:00)
[2017-11-08] MEDS ORDERED: HEPARIN SODIUM - SQ 10,000 UNITS/ML VIAL SQ SCH (22:00)
[2017-11-08] MEDS ORDERED: DEXTROSE 50% IN WATER 50 ML VIAL(D50) IV PUSH PRN (22:00)
[2017-11-08] MEDS: CHLORHEXIDINE GLUCONATE 2 % 1 PACK (2 CLOTHS) TOP SCH (22:18)
[2017-11-08] MEDS: RESP: ALBUTEROL 2.5 MG/IPRATROPIUM 0.5 MG NEB (SCH) INH (22:47)
[2017-11-08] MEDS: methylPREDNISolone SOD SUCC 40 MG/1 ML VIAL IV PUSH SCH (22:51)
[2017-11-08] MEDS: DOCUSATE SODIUM 50 MG/SENNA 8.6 MG TAB PO SCH (22:51)
[2017-11-08] MEDS: FAMOTIDINE 20 MG/2 ML VIAL IV PUSH SCH (22:51)
[2017-11-08] MEDS: DOXYCYCLINE HYCLATE 100 MG TAB PO SCH (22:51)
[2017-11-08] MEDS: PREGABALIN 100 MG CAP PO SCH (22:51)
[2017-11-08] MEDS: PRAVASTATIN SOD 20 MG TAB PO SCH (22:51)
[2017-11-08] MEDS: SODIUM CHLORIDE 0.9% FLUSH 10 ML FLUSH IV FLUSH SCH (22:53)
--- NOTE | 2017-11-08 23:03 | EKG ---
Date Performed: 11/08/2017 Time Performed: 18:42:27 PTAGE: 62 years EKG: Sinus rhythm NONSPECIFIC T-WAVE ABNORMALITY BORDERLINE ECG PREVIOUS TRACING : 11/01/2017 08.07 No significant change from previous tracing noted. DOCTOR: Phil Moffett Interpretating Date/Time 11/08/2017 23:01:53
[2017-11-08 23:59] LABS: BACTERIA, URINE RARE /hpf; BILIRUBIN, URINE NEG (NEG); BLOOD, URINE NEG (NEG); GLUCOSE,URINE NEG (NEG); KETONE, URINE NEG (NEG); MUCUS URINE FEW /lpf (OCC); NITRITE,URINE NEG (NEG); SQUAMOUS EPITHELIAL CELL URINE 1 /hpf (0-5); URINE COLOR YELLOW (YELLW/STRAW); URINE LEUKOCYTE ESTERASE LARGE (NEG)
[2017-11-09] VITALS (12 sets, daily range): BP systolic 118–135; BP diastolic 66–81; PULSE 71–90; RESP 16–23; TEMP 97.3–98.4; O2SAT 93–100
[2017-11-09] MEDS: RESP: ALBUTEROL 2.5 MG/IPRATROPIUM 0.5 MG NEB (SCH) INH ×6 (03:15→23:23)
[2017-11-09 03:34] LABS: AUTOMATED NEUTROPHIL # 8.3 TH/MM3 (1.8-7.7); BASOPHIL # 0.1 TH/MM3 (0-0.2); BASOPHIL % 0.5 % (0.0-2.0); EOSINOPHIL # 0.1 TH/MM3 (0-0.4); EOSINOPHIL % 0.9 % (0.0-4.0); HEMOGLOBIN 9.1 GM/DL (13.0-17.0); LYMPH % 10.8 % (9.0-44.0); MEAN CELL VOLUME 77.2 FL (80.0-100.0); MEAN CORPUSCULAR HGB CONC 32.4 % (32.0-36.0); MEAN PLATELET VOLUME 7.8 FL (7.0-11.0); MONO % 2.2 % (0.0-8.0); MONOCYTE # 0.2 TH/MM3 (0-0.9); NEUT % 85.6 % (16.0-70.0); PLATELET COUNT 314 TH/MM3 (150-450); RED BLOOD COUNT 3.63 MIL/MM3 (4.50-5.90); RED CELL DISTRIBUTION WIDTH 18.2 % (11.6-17.2); WHITE BLOOD COUNT 9.7 TH/MM3 (4.0-11.0)
[2017-11-09 03:38] LABS: INTERNATIONAL NORMALIZED RATIO 2.3 RATIO; PROTHROMBIN TIME - PATIENT 23.3 SEC (9.8-11.6)
[2017-11-09 03:40] LABS: ALBUMIN 2.6 GM/DL (3.4-5.0); AST (GOT) 13 U/L (15-37); BICARBONATE 34.8 MEQ/L (21.0-32.0); BLOOD UREA NITROGEN 12 MG/DL (7-18); CALCIUM 8.3 MG/DL (8.5-10.1); CHLORIDE 99 MEQ/L (98-107); CREATININE 0.61 MG/DL (0.60-1.30); GLOMERULAR FILTRATION RATE 133 ML/MIN (>89); GLUCOSE,RANDOM 117 MG/DL (74-106); MAGNESIUM 2.1 MG/DL (1.5-2.5); SODIUM (NA) 136 MEQ/L (136-145)
[2017-11-09 03:46] LABS: ALKALINE PHOSPHATASE 44 U/L (45-117); ALT (GPT) 9 U/L (12-78); PHOSPHORUS 2.9 MG/DL (2.5-4.9); TOTAL BILIRUBIN ADULT 0.2 MG/DL (0.2-1.0); TOTAL PROTEIN 7.7 GM/DL (6.4-8.2); TROPONIN I LESS THAN 0.02 NG/ML (0.02-0.05)
--- NOTE | 2017-11-09 06:11 | RADRPT ---
EXAM DATE/TIME: 11/09/2017 04:29 [place] COMPARISON: CHEST SINGLE AP, November 08, 2017, 18:48. INDICATIONS : Shortness of breath, possible pulmonary disease. MEDICAL HISTORY : Diabetes mellitus type II. Chronic obstructive pulmonary disease. Cardiovascular disease. SURGICAL HISTORY : None. ENCOUNTER: Subsequent ACUITY: 2 days PAIN SCORE: 0/10 LOCATION: Bilateral chest FINDINGS: Mild patchy air space opacities persist without significant change, mostly the bases. No large effusi on. No pneumothorax. Heart size stable, upper limits of normal. Left internal jugular Urwyek-u-Ifes catheter with tip in the right atrium again noted. CONCLUSION: No significant change. Jorge Alberto Richard MD on November 09, 2017 at 6:10 Board Certified Radiologist. This report was verified electronically.
[2017-11-09] MEDS: methylPREDNISolone SOD SUCC 40 MG/1 ML VIAL IV PUSH SCH ×4 (06:32→23:18)
--- NOTE | 2017-11-09 07:33 | HHI.CCPN ---
Subjective Remarks/Hospital Course 62-year-old male with a history of diabetes mellitus, COPD, chronic right lower extremity cellulitis, presents today with complaints of feeling not well. Patient states he feels as though he is drunk although has not been drinking any alcohol. He denies any fevers, chills. He denies any chest pain, chest pressure. Reports cough with white clear phlegm. The patient was just recently admitted to the hospital discharge 2 days ago. He reports still smoking cigarettes. He reports he smoked 3 cigarettes today. In the emergency department he was placed on the BiPAP with significant improvement in mentation and oxygenation. 11/09: Remained off BiPAP overnight breathing comfortably good oxygen saturation on nasal cannula. Subjectively feels better. Chest x-ray no acute infiltrate Objective Vital Signs Date Time Temp Pulse Resp B/P (MAP) Pulse Ox O2 Delivery O2 Flow Rate FiO2 11/09/17 07:21 99 Nasal Cannula 4.00 11/09/17 06:00 80 11/09/17 04:00 98.4 16 132/68 (89) 11/08/17 21:00 45 Intake and Output 11/09/17 11/09/17 11/10/17 08:00 16:00 00:00 Intake Total 360 ml Output Total 800 ml Balance -440 ml Result Diagram: 11/09/17 0256 11/09/17 0256 Other Results Laboratory Tests Test 11/08/17 18:34 Blood Gas Puncture Site RT RADIAL Blood Gas Patient Temperature 98.6 Blood Gas HCO3 32 mmol/L (22-26) Blood Gas Base Excess 5.8 mmol/L (-2-2) Blood Gas Oxygen Saturation 94 % (90-100) Arterial Blood pH 7.32 (7.380-7.420) Arterial Blood Partial Pressure CO2 63 mmHg (38-42) Arterial Blood Partial Pressure O2 96 mmHG (61-120) Arterial Blood Oxygen Content 12.0 Vol % (12.0-20.0) Arterial Blood Carboxyhemoglobin 2.8 % (0-4) Arterial Blood Methemoglobin 0.5 % (0-2) Blood Gas Hemoglobin 9.0 G/DL (12.0-16.0) Oxygen Delivery Device NASAL CANNULA Blood Gas Liter Flow 4.5 L/M Imaging Last 24 hours Impressions Chest X-Ray 11/08/171810 Signed Impressions: Service Date/Time: Wednesday, November 08, 2017 18:48 - CONCLUSION: 1. No acute abnormality or significant interval change. Benja Steele MD Objective Remarks GENERAL: Morbidly obese male in no respiratory discomfort. SKIN: Focused skin assessment warm/dry. HEAD: Atraumatic. Normocephalic. EYES: No scleral icterus. No injection or drainage. ENT: No nasal bleeding or discharge. Mucous membranes pink and moist. NECK: Trachea midline. Supple. CARDIOVASCULAR: Regular rate and rhythm. No murmur appreciated. RESPIRATORY: Mild expiratory wheezes heard bilateral bases. No rales appreciated. GASTROINTESTINAL: Abdomen soft, non-tender, nondistended. EXTREMITIES: Chronic venous stasis changes and chronic cellulitic changes of the right lower extremity with scaling of the skin. Previous left lower extremity amputation NEUROLOGICAL: Awake and alert. No obvious cranial nerve deficits. Motor grossly within normal limits. Normal speech, no slurring. A/P Assessment and Plan Respiratory failure - COPD exacerbation - Untreated JYOTSNA - BiPAP at bedtime and when necessary - DuoNeb scheduled and when necessary - IV steroids - Empiric antibiotic - Pulmonary consultation Chronic Cellulitis Right lower extremity - Monitor History of DVT - warfarin with pharmacy consult for therapeutic dosing and monitoring Coronary artery disease - Continue home statin, ASA Type 2 diabetes mellitus - Hold home metformin while in the ICU - Insulin sliding scale - Continue glipizide and ADA diet Atrial fibrillation - Continue Coumadin per pharmacy - Continue Cardizem Seizure disorder/Tremor - Continue primidone Hyperlipidemia - pravastatin DVT GI prophylaxis - Coumadin - Pepcid Critical Care: Level 2 Transfer to Med Surg. Consult hospitalist to assume care to 11/10/17 Carolyne Azul MD Nov 09, 2017 07:33
[2017-11-09] MEDS: INSULIN ASPART SUPPLEMENTAL SCALE SQ SCH ×4 (08:00→23:14)
[2017-11-09] MEDS: ASPIRIN 81 MG CHEW TAB CHEW SCH (09:00)
[2017-11-09] MEDS: SODIUM CHLORIDE 0.9% FLUSH 10 ML FLUSH IV FLUSH SCH ×2 (09:00→23:11)
[2017-11-09] MEDS: FAMOTIDINE 20 MG/2 ML VIAL IV PUSH SCH ×2 (12:03→23:11)
[2017-11-09] MEDS: PRIMIDONE 50 MG TAB PO SCH ×3 (12:03→18:16)
[2017-11-09] MEDS: LISINOPRIL 10 MG TAB PO SCH (12:04)
[2017-11-09] MEDS: DILTIAZEM-CD 240 MG CAP ER PO SCH (12:04)
[2017-11-09] MEDS: DOCUSATE SODIUM 50 MG/SENNA 8.6 MG TAB PO SCH ×2 (12:04→21:00)
[2017-11-09] MEDS: SPIRONOLACTONE 25 MG TAB PO SCH (12:04)
[2017-11-09] MEDS: PREGABALIN 100 MG CAP PO SCH ×2 (12:04→23:09)
[2017-11-09] MEDS: FERROUS SULFATE 325 MG (65 MG ELEMENTAL IRON) TAB PO SCH ×3 (12:04→18:30)
[2017-11-09] MEDS: DOXYCYCLINE HYCLATE 100 MG TAB PO SCH ×2 (12:04→23:09)
[2017-11-09] MEDS: FOLIC ACID 1 MG TAB PO SCH (12:04)
[2017-11-09] MEDS: cefTRIAXone INJ 1,000 MG in SODIUM CHLORIDE 0.9% INJ 100 ML IV SCH (12:05)
--- NOTE | 2017-11-09 14:37 | MB ---
cc: VINAYAK ZAVALA M.D. DATE OF CONSULTATION: 11/09/2017. HISTORY OF PRESENT ILLNESS: The patient is a 62-year-old male with a past medical history of COPD, chronic right lower extremity cellulitis, DVT, atrial fibrillation on coumadin, diabetes mellitus, and obstructive sleep apnea. The patient presented to the [facility] Emergency Department with respiratory distress and an ABG was done on 4.5 liters nasal cannula, which showed acute hypercapnic respiratory acidosis with a pH of 7.32, CO2 63, pAO2 96, bicarb 32 and sats of 94%. Chest x-ray on arrival showed no acute abnormalities. The patient was placed on bronchodilators and IV steroids. He is on 3 liters oxygen at home for his COPD. The patient remains an active smoker, and used to smoke 2-1/2 packs of cigarettes per day for approximately 50 years; however he is down to four cigarettes a day. Overall he feels better. He is currently on 4 liters oxygen with saturation of 99%. Repeat chest x-ray this morning showed per mild patchy airspace opacities. PAST MEDICAL HISTORY: Past medical history significant for: 1. Diabetes mellitus. 2. COPD on three liters home oxygen. 3. Chronic right lower extremity lymphedema with recurrent cellulitis. 4. DVT. 5. Atrial fibrillation. 6. Hyperlipidemia. 7. Coronary artery disease. 8. History of CVAs. 9. Hypertension. 10. Osteoarthritis. 11. Degenerative disc disease. PAST SURGICAL HISTORY: 1. Previous right subclavian port placement. 2. Left leg amputation. 3. Previous tonsillectomy. 4. Appendectomy. 5. Fibrous tumor removed from the back. ALLERGIES: 1. IODINE. REPORTED MEDICATIONS: 1. Glipizide. 2. Ferrous sulfate. 3. Aspirin. 4. Folic acid. 5. Diltiazem. 6. Pravastatin. 7. Metformin. 8. Spironolactone. 9. Coumadin. FAMILY HISTORY: Noncontributory to the current present illness. REVIEW OF SYSTEMS: The review of systems is as per the history of present illness, and the rest of the review of systems is unremarkable. PHYSICAL EXAMINATION: GENERAL: A 62-year-old male lying in bed in no acute distress. VITAL SIGNS: 98.4, pulse of 96, blood pressure 137/66, saturation 97%. HEAD, EYES, EARS, NOSE, THROAT: Normocephalic and atraumatic. Pupils equal, round and reactive to light and accommodation. Extraocular muscles intact. Conjunctivae are pink. Nonicteric sclerae. Oral mucosa within normal limits. NECK: The neck is supple. No jugular venous distention, adenopathy or thyromegaly. Trachea in the midline. CARDIOVASCULAR: Regular rate and rhythm. Normal S1 and S2. No murmurs, rubs or gallops noted. PULMONARY: Bilateral equal air entry. No crackles. ABDOMEN: The abdomen is soft, nontender and no distention. Positive bowel sounds. EXTREMITIES: Chronic venous stasis changes and cellulitis changes of the right lower extremity with scaling of the skin. Previous left lower extremity amputation. NEUROLOGIC: No focal sensory deficit. LABORATORY DATA: Sodium 136, potassium 4.8, chloride 99, carbon dioxide 34, BUN 12, creatinine 0.6, glucose of 117. Troponin less than 0.02 x3. WBCs 9.7, hemoglobin 9.1, hematocrit 28, platelet count of 314,000. INR 2.3. PT 23.3. PTT 36.9. Urinalysis showed large leukocyte esterase, 17 WBCs. RADIOGRAPHIC STUDIES: Chest x-ray this morning showed mild patchy airspace opacities. IMPRESSION: 1. Acute on chronic hypercapnic respiratory failure. 2. COPD exacerbation. 3. Morbid obesity, likely underlying obstructive sleep apnea. 4. Cellulitis, right lower extremity. 5. Atrial fibrillation and DVT on Coumadin. 6. History of coronary artery disease. 7. Urinary tract infection. RECOMMENDATIONS: 1. Continue with oxygen and maintain saturations above 92%. 2. Bronchodilators in the form of DuoNeb q. 4 plus q. 2 PRN for shortness of breath. 3. In addition, will add Symbicort 160/4.5 plus q. 12 hours. 4. Noninvasive partial pressure ventilation PRN for respiratory distress and nocturnally at bedtime. 5. Will place on Rocephin for COPD exacerbation and urinary tract infection. 6. Will need pulmonary function tests as an outpatient to assess the severity of his obstructive lung disease. 7. The patient was counselled regarding smoking cessation. 8. He will also need a sleep study as an outpatient to rule out obstructive sleep apnea. 9. Continue with IV steroids. He was placed on Solu-Medrol 40 milligrams IV q. 6. 10. GI prophylaxis and DVT prophylaxis. He is on Coumadin with INR of 2.3 early this morning. Further recommendations will be based on the hospital course. Thank you for the consultation and for allowing us to assist with this patient's care. MD SOBIA Diallo/GERALD /11:01 AM /2:04 PM
[2017-11-09] MEDS ORDERED: ALTEPLASE RECOMBINANT 2 MG VIAL IV ONE (17:15)
[2017-11-09] MEDS: glipiZIDE 10 MG TAB PO SCH ×2 (18:16→21:00)
[2017-11-09] MEDS: VENLAFAXINE HCL XR 75 MG CAP PO SCH (18:17)
[2017-11-09] MEDS: WARFARIN SOD 4 MG TAB PO SCH (18:18)
[2017-11-09] MEDS: PRAVASTATIN SOD 20 MG TAB PO SCH (23:10)
[2017-11-09] MEDS: BUDESONIDE-FORMOTEROL 160/4.5 MCG INHALER INH SCH (23:56)
[2017-11-10] VITALS (14 sets, daily range): BP systolic 122–148; BP diastolic 59–71; PULSE 78–98; RESP 17–20; TEMP 97.3–98; O2SAT 96–99
[2017-11-10] MEDS: RESP: ALBUTEROL 2.5 MG/IPRATROPIUM 0.5 MG NEB (SCH) INH ×5 (03:00→19:38)
[2017-11-10] MEDS: CHLORHEXIDINE GLUCONATE 2 % 1 PACK (2 CLOTHS) TOP SCH (04:00)
[2017-11-10] MEDS: methylPREDNISolone SOD SUCC 40 MG/1 ML VIAL IV PUSH SCH ×2 (05:37→20:57)
[2017-11-10 07:12] LABS: PROTHROMBIN TIME - PATIENT 20.3 SEC (9.8-11.6)
[2017-11-10] MEDS: PRIMIDONE 50 MG TAB PO SCH ×3 (09:49→18:07)
[2017-11-10] MEDS: DILTIAZEM-CD 240 MG CAP ER PO SCH (09:49)
[2017-11-10] MEDS: PREGABALIN 100 MG CAP PO SCH ×2 (09:50→20:58)
[2017-11-10] MEDS: glipiZIDE 10 MG TAB PO SCH ×2 (09:50→20:59)
[2017-11-10] MEDS: VENLAFAXINE HCL XR 75 MG CAP PO SCH (09:50)
[2017-11-10] MEDS: FOLIC ACID 1 MG TAB PO SCH (09:50)
[2017-11-10] MEDS: SPIRONOLACTONE 25 MG TAB PO SCH (09:50)
[2017-11-10] MEDS: ASPIRIN 81 MG CHEW TAB CHEW SCH (09:50)
[2017-11-10] MEDS: LISINOPRIL 10 MG TAB PO SCH (09:50)
[2017-11-10] MEDS: DOXYCYCLINE HYCLATE 100 MG TAB PO SCH (09:50)
[2017-11-10] MEDS: DOCUSATE SODIUM 50 MG/SENNA 8.6 MG TAB PO SCH ×2 (09:50→20:58)
[2017-11-10] MEDS: FERROUS SULFATE 325 MG (65 MG ELEMENTAL IRON) TAB PO SCH ×3 (09:50→18:08)
[2017-11-10] MEDS: SODIUM CHLORIDE 0.9% FLUSH 10 ML FLUSH IV FLUSH SCH ×2 (09:51→20:56)
[2017-11-10] MEDS: FAMOTIDINE 20 MG/2 ML VIAL IV PUSH SCH ×2 (09:51→20:57)
[2017-11-10] MEDS: BUDESONIDE-FORMOTEROL 160/4.5 MCG INHALER INH SCH ×2 (09:52→20:57)
[2017-11-10] MEDS: INSULIN ASPART SUPPLEMENTAL SCALE SQ SCH ×4 (10:05→20:59)
--- NOTE | 2017-11-10 11:43 | HHI.PR ---
Subjective Remarks Juanito is on 4L oxygen with good sats. Afebrile. Feels he is back to his baseline. Objective Vital Signs Vital Signs Date Time Temp Pulse Resp B/P (MAP) Pulse Ox O2 Delivery O2 Flow Rate FiO2 11/10/17 09:09 97.7 94 20 138/68 (91) 96 11/10/17 08:17 98 Nasal Cannula 4.00 11/10/17 08:00 94 11/10/17 04:00 97.3 90 17 144/67 (92) 96 11/10/17 03:43 89 11/10/17 00:00 97.5 90 17 122/60 (80) 96 11/09/17 23:41 90 11/09/17 23:24 96 Nasal Cannula 4.00 11/09/17 20:49 89 11/09/17 20:00 97.3 86 17 131/66 (87) 93 11/09/17 20:00 Nasal Cannula 4.00 11/09/17 16:00 97.9 11/09/17 12:00 97.7 I/O 11/09/17 11/09/17 11/09/17 11/10/17 11/10/17 11/10/17 07:00 15:00 23:00 07:00 15:00 23:00 Intake Total 360 ml 750 ml 520 ml Output Total 800 ml 950 ml 625 ml Balance -440 ml -200 ml -105 ml Intake Oral 360 ml 750 ml 520 ml Output Urine Total 800 ml 950 ml 625 ml Result Diagram: 11/09/17 0256 11/09/17 0256 Other Results Last Impressions Chest X-Ray 11/09/17 0000 Signed Impressions: Service Date/Time: Thursday, November 09, 2017 04:29 - CONCLUSION: No significant change. Jorge Alberto Richard MD Objective Remarks GENERAL: Patient is 62 yo lying in bed in NAD SKIN: Warm and dry. HEAD: Normocephalic. EYES: No scleral icterus. No injection or drainage. NECK: Supple, trachea midline. No JVD or lymphadenopathy. CARDIOVASCULAR: Regular rate and rhythm without murmurs, gallops, or rubs. RESPIRATORY: Breath sounds equal bilaterally. No accessory muscle use. GASTROINTESTINAL: Abdomen soft, non-tender, nondistended. MUSCULOSKELETAL: No cyanosis, + edema. Neuro: Awake and alert A/P Assessment and Plan 1. Acute on chronic hypercapnic respiratory failure. 2. COPD exacerbation. 3. Morbid obesity, likely underlying obstructive sleep apnea. 4. Cellulitis, right lower extremity. 5. Atrial fibrillation and DVT on Coumadin. 6. History of coronary artery disease. 7. Urinary tract infection. Plan Continue with oxygen and maintain saturations above 92%. Bronchodilators (DuoNeb, Symbicort) taper steroids- Decrease Solumederol 40mg Q12 BIPAP PRN for respiratory distress Continue Rocephin for COPD exacerbation PFT as an outpatient to assess the severity of his obstructive lung disease. Patient was counselled regarding smoking cessation. Will need PSG as an outpatient to rule out obstructive sleep apnea. DVT prophylaxis-Coumadin with INR of 2.0 today Tonya Leung MD Nov 10, 2017 11:43
--- NOTE | 2017-11-10 12:30 | HHI.PR ---
Subjective Remarks feels better no wheezing minimal dry cough Objective Vitals Vital Signs Date Time Temp Pulse Resp B/P (MAP) Pulse Ox O2 Delivery O2 Flow Rate FiO2 11/10/17 11:39 99 Nasal Cannula 3.00 11/10/17 09:09 97.7 94 20 138/68 (91) 96 11/10/17 08:17 98 Nasal Cannula 4.00 11/10/17 08:00 94 11/10/17 04:00 97.3 90 17 144/67 (92) 96 11/10/17 03:43 89 11/10/17 00:00 97.5 90 17 122/60 (80) 96 11/09/17 23:41 90 11/09/17 23:24 96 Nasal Cannula 4.00 11/09/17 20:49 89 11/09/17 20:00 97.3 86 17 131/66 (87) 93 11/09/17 20:00 Nasal Cannula 4.00 11/09/17 16:00 97.9 I/O 11/09/17 11/09/17 11/09/17 11/10/17 11/10/17 11/10/17 07:00 15:00 23:00 07:00 15:00 23:00 Intake Total 360 ml 750 ml 520 ml Output Total 800 ml 950 ml 625 ml Balance -440 ml -200 ml -105 ml Intake Oral 360 ml 750 ml 520 ml Output Urine Total 800 ml 950 ml 625 ml Result Diagram: 11/09/17 0256 11/09/17 0256 Imaging Last Impressions Chest X-Ray 11/09/17 0000 Signed Impressions: Service Date/Time: Thursday, November 09, 2017 04:29 - CONCLUSION: No significant change. Jorge Alberto Richard MD Objective Remarks awake and alert oriented x 3 anicteric no nuchal rigidity lungs- no rales no wheezes port in place- chest wall- site no erythema regualr rhythm abdomen- flabby soft, nontendere extremities - Left AKA right- le- very dry skin open wounds tibial area with surrounding erythema moves all extremities spontaenously A/P Assessment and Plan 62 years old male Acute respiratory Failure- on top of chronic COPD- 02 dependent 2 LNCRespiratory failure - Untreated JYOTSNA - BiPAP at bedtime and when necessary - DuoNeb scheduled and when necessary - IV steroids- decrease t0 q 12 - Empiric antibiotic- on Ceftrixone - Pulmonary ff Chronic Cellulitis Right lower extremity= per patient was on home course of antibiotics - reveiw- records suypposed to be on Vancomycin 1 gm q 12 and IV rocephin till - will reorder Vanco History of DVT - warfarin with pharmacy consult for therapeutic dosing and monitoring Coronary artery disease - Continue home statin, ASA Type 2 diabetes mellitus - BS elevated 200s with solumedrol - restart his metformin - Insulin sliding scale - Continue glipizide and ADA diet Atrial fibrillation - Continue Coumadin per pharmacy - Continue Cardizem Seizure disorder/Tremor - Continue primidone Hyperlipidemia - pravastatin Deconditionin - restart his Baclofen -PT consult DVT GI prophylaxis - Coumadin - Pepcid PT/OT consult wound care team consult Osei De León MD Nov 10, 2017 12:30
[2017-11-10] MEDS: ACETAMINOPHEN 325 MG TAB PO PRN (12:32)
[2017-11-10] MEDS: cefTRIAXone INJ 1,000 MG in SODIUM CHLORIDE 0.9% INJ 100 ML IV SCH (12:33)
[2017-11-10] MEDS: VANCOMYCIN INJ 1,000 MG in SODIUM CHLOR 0.9% 250 ML INJ 250 ML IV SCH (13:57)
[2017-11-10] MEDS: BACLOFEN 10 MG TAB PO SCH ×2 (14:05→20:58)
[2017-11-10] MEDS: WARFARIN SOD 4 MG TAB PO SCH (18:07)
[2017-11-10] MEDS: PRAVASTATIN SOD 20 MG TAB PO SCH (20:58)
[2017-11-11] VITALS (7 sets, daily range): BP systolic 119–152; BP diastolic 63–70; PULSE 71–81; RESP 20–22; TEMP 97–98.1; O2SAT 97–99
[2017-11-11] MEDS: VANCOMYCIN INJ 1,000 MG in SODIUM CHLOR 0.9% 250 ML INJ 250 ML IV SCH ×2 (00:18→13:11)
[2017-11-11] MEDS: RESP: ALBUTEROL 2.5 MG/IPRATROPIUM 0.5 MG NEB (SCH) INH ×5 (02:38→15:48)
[2017-11-11] MEDS: BACLOFEN 10 MG TAB PO SCH ×2 (05:33→12:35)
[2017-11-11] MEDS: CHLORHEXIDINE GLUCONATE 2 % 1 PACK (2 CLOTHS) TOP SCH (05:34)
[2017-11-11 05:57] LABS: INTERNATIONAL NORMALIZED RATIO 1.7 RATIO; PROTHROMBIN TIME - PATIENT 17.2 SEC (9.8-11.6)
[2017-11-11] MEDS: ACETAMINOPHEN 325 MG TAB PO PRN (06:26)
[2017-11-11] MEDS: DILTIAZEM-CD 240 MG CAP ER PO SCH (08:29)
[2017-11-11] MEDS: PREGABALIN 100 MG CAP PO SCH (08:29)
[2017-11-11] MEDS: glipiZIDE 10 MG TAB PO SCH (08:29)
[2017-11-11] MEDS: FERROUS SULFATE 325 MG (65 MG ELEMENTAL IRON) TAB PO SCH ×3 (08:30→17:43)
[2017-11-11] MEDS: LISINOPRIL 10 MG TAB PO SCH (08:30)
[2017-11-11] MEDS: FAMOTIDINE 20 MG/2 ML VIAL IV PUSH SCH (08:30)
[2017-11-11] MEDS: ASPIRIN 81 MG CHEW TAB CHEW SCH (08:30)
[2017-11-11] MEDS: VENLAFAXINE HCL XR 75 MG CAP PO SCH (08:30)
[2017-11-11] MEDS: PRIMIDONE 50 MG TAB PO SCH ×3 (08:30→17:43)
[2017-11-11] MEDS: SPIRONOLACTONE 25 MG TAB PO SCH (08:30)
[2017-11-11] MEDS: FOLIC ACID 1 MG TAB PO SCH (08:30)
[2017-11-11] MEDS: DOCUSATE SODIUM 50 MG/SENNA 8.6 MG TAB PO SCH (08:31)
[2017-11-11] MEDS: methylPREDNISolone SOD SUCC 40 MG/1 ML VIAL IV PUSH SCH (08:31)
[2017-11-11] MEDS: INSULIN ASPART SUPPLEMENTAL SCALE SQ SCH ×3 (08:31→17:43)
[2017-11-11] MEDS: SODIUM CHLORIDE 0.9% FLUSH 10 ML FLUSH IV FLUSH SCH (08:31)
[2017-11-11] MEDS: BUDESONIDE-FORMOTEROL 160/4.5 MCG INHALER INH SCH (08:31)
[2017-11-11] MEDS: cefTRIAXone INJ 1,000 MG in SODIUM CHLORIDE 0.9% INJ 100 ML IV SCH (12:36)
--- NOTE | 2017-11-11 15:30 | HHI.PR ---
Subjective Remarks feels great no wheezing no fever wants to go home Objective Vitals Vital Signs Date Time Temp Pulse Resp B/P (MAP) Pulse Ox O2 Delivery O2 Flow Rate FiO2 11/11/17 12:00 97.8 80 20 146/63 (90) 97 11/11/17 08:00 97.4 80 20 141/65 (90) 99 11/11/17 07:39 98 Nasal Cannula 2.00 11/11/17 04:08 75 11/11/17 04:00 98.0 78 22 119/69 (86) 98 11/11/17 00:00 98.1 81 20 125/65 (85) 97 11/10/17 23:46 82 11/10/17 20:00 97.8 88 19 128/59 (82) 98 11/10/17 20:00 Nasal Cannula 3.00 11/10/17 19:42 78 11/10/17 19:38 96 Nasal Cannula 3.00 11/10/17 16:00 Nasal Cannula 3.00 11/10/17 16:00 86 I/O 11/10/17 11/10/17 11/10/17 11/11/17 11/11/17 11/11/17 07:00 15:00 23:00 07:00 15:00 23:00 Intake Total 520 ml 400 ml 900 ml Output Total 625 ml 500 ml 1200 ml Balance -105 ml -100 ml -300 ml Intake Oral 520 ml 400 ml 900 ml Output Urine Total 625 ml 500 ml 1200 ml # Bowel Movements 0 0 Result Diagram: 11/09/17 0256 11/09/17 0256 Imaging Last Impressions Chest X-Ray 11/09/17 0000 Signed Impressions: Service Date/Time: Thursday, November 09, 2017 04:29 - CONCLUSION: No significant change. Jorge Alberto Richard MD Objective Remarks awake and alert oriented x 3 anicteric no nuchal rigidity lungs- no rales no wheezes port in place- chest wall- site no erythema regualr rhythm abdomen- flabby soft, nontendere extremities - Left AKA right- le- very dry skin open wounds tibial area moves all extremities spontaenously A/P Assessment and Plan 62 years old male Acute respiratory Failure- on top of chronic COPD- 02 dependent 2 LNCRespiratory failure - Untreated JYOTSNA - BiPAP at bedtime and when necessary - DuoNeb scheduled and when necessary - IV steroids- decrease to q 12- change to po Prednsione- short coursetaper - on antibiotics - rocephin - Pulmonary ff Chronic Cellulitis Right lower extremity= per patient was on home course of antibiotics - reveiw- records continue on Vancomycin 1 gm q 12 and IV rocephin till 10/24 - d/w wound care nurse- shaving cream- instructed History of DVT - warfarin with pharmacy consult for therapeutic dosing and monitoring Coronary artery disease - Continue home statin, ASA Type 2 diabetes mellitus - BS elevated 200s with solumedrol - restart his metformin 1ooo mg bid - Insulin sliding scale - Continue glipizide and ADA diet - is very good and knowledgeable about this- she knows that steroids increase this Atrial fibrillation - Continue Coumadin per pharmacy - Continue Cardizem Seizure disorder/Tremor - Continue primidone Hyperlipidemia - pravastatin Deconditionin - restart his Baclofen -PT consult DVT GI prophylaxis - Coumadin - Pepcid PT/OT consult wound care team consult Osei De León MD Nov 11, 2017 15:30
--- NOTE | 2017-11-11 15:31 | HHI.FF ---
Face to Face Verification Diagnosis: (1) COPD (chronic obstructive pulmonary disease) (2) Wound infection (3) Diabetes mellitus type 2, uncontrolled Physical Therapy Order: Evaluate and Treat, Strength and gait training Occupational Therapy Order: Evaluate and Treat, Improve ADL, Gross motor coordination Home Health Nursing Order: Medical education Signs/symptoms of disease process Diabetic education Medication education-adverse effect Wound care and dressing changes Nursing assessment with vital signs I have seen patient Jorge Alberto Contreras on 11/11/17. My clinical findings support the need for the requested home health care services because: Ltd mobility - disease progression Limited ability to care for self High risk of falls Infection w/ risk of complications I certify that my clinical findings support that this patient is homebound because: Hx COPD- exertion dyspnea/weakness Need for psychosocial assistance Osei De León MD Nov 11, 2017 15:31
--- NOTE | 2017-11-11 15:35 | PD.WCN.NOT ---
Wound Consult Description: Wound consult ordered by for right lower extremity Communicated with: Maggie MAGAÑA [address] [place] [address], Recommendation: 1) Encourage patient to elevate right lower extremity 2) Perform shaving cream therapy to right lower extremity Daily x3 days then moisturize lower extremity. 3) Follow up with out patient wound center if worsens 4) Please do not apply compression patient has several DVTs Additional Information: Patient was seen on [address] [place] [address] today by underwriter mortgage loan for RLE.Patient alert and oriented x3 in bed with right lower extremity elevated on 2 pillows.Patient has above knee left amputation.Right lower extremity presents with mixed etiology of crusting,plaque dry skin from ~2 inches below knee to distal tibia.No open areas noted no odor or drainage present at this time.Patient states extremity is very tender to touch with shape stabs shooting down extremity.lower extremity is discolored with dark purple,red and pink areas.Patient has Hx of PVD,CHF and arterial disease.Patient is not a candidate for compression.Edema/ skin management recommended. Suzan Trevizo [facility] Nov 11, 2017 15:35
[2017-11-11] MEDS ORDERED: Budeson-Formot 160-4.5 Mcg Inh INH (15:37)
[2017-11-11] MEDS ORDERED: Albuterol-Ipratropium Neb INH (15:37)
[2017-11-11] MEDS ORDERED: COUM5TAB PO (15:37)
[2017-11-11] MEDS ORDERED: PRED5TAB PO (15:44)
--- NOTE | 2017-11-11 15:48 | HHI.DS ---
Discharge Summary Admission Date Nov 08, 2017 at 20:51 Discharge Date: Nov 11, 2017 Admitting Diagnosis (1) COPD (chronic obstructive pulmonary disease) ICD Code: J44.9 - Chronic obstructive pulmonary disease, unspecified Diagnosis: Principal Status: Chronic (2) History of DVT (deep vein thrombosis) ICD Code: Z86.718 - History of DVT (deep vein thrombosis) Diagnosis: Secondary Status: Chronic (3) Type 2 diabetes mellitus ICD Code: E11.9 - Type 2 diabetes mellitus without complications Diagnosis: Secondary Status: Chronic Procedures none Brief History - From Admission 62-year-old male with a history of diabetes mellitus, COPD, chronic right lower extremity cellulitis, presents today with complaints of feeling not well. Patient states he feels as though he is drunk although has not been drinking any alcohol. He denies any fevers, chills. He denies any chest pain, chest pressure. Reports cough with white clear phlegm. The patient was just recently admitted to the hospital discharge 2 days ago. He reports still smoking cigarettes. He reports he smoked 3 cigarettes today. In the emergency department he was placed on the BiPAP with significant improvement in mentation and oxygenation. CBC/BMP: 11/09/17 0256 11/09/17 0256 Significant Findings Laboratory Tests Test 11/08/17 18:15 11/08/17 18:34 11/08/17 19:12 11/08/17 21:05 White Blood Count 12.3 TH/MM3 (4.0-11.0) Red Blood Count 3.78 MIL/MM3 (4.50-5.90) Hemoglobin 9.3 GM/DL (13.0-17.0) Hematocrit 29.1 % (39.0-51.0) Mean Corpuscular Volume 77.0 FL (80.0-100.0) Mean Corpuscular Hemoglobin 24.7 PG (27.0-34.0) Red Cell Distribution Width 19.0 % (11.6-17.2) Neutrophils # (Auto) 8.0 TH/MM3 (1.8-7.7) Monocytes # (Auto) 1.0 TH/MM3 (0-0.9) Eosinophils # (Auto) 0.5 TH/MM3 (0-0.4) Blood Gas HCO3 32 mmol/L (22-26) Blood Gas Base Excess 5.8 mmol/L (-2-2) Arterial Blood pH 7.32 (7.380-7.420) Arterial Blood Partial Pressure CO2 63 mmHg (38-42) Blood Gas Hemoglobin 9.0 G/DL (12.0-16.0) Random Glucose 57 MG/DL (74-106) Albumin 2.7 GM/DL (3.4-5.0) Calcium Level 8.4 MG/DL (8.5-10.1) Alanine Aminotransferase (ALT/SGPT) 10 U/L (12-78) Sodium Level 134 MEQ/L (136-145) Carbon Dioxide Level 33.3 MEQ/L (21.0-32.0) Anion Gap 3 MEQ/L (5-15) Troponin I LESS THAN 0.02 NG/ML LESS THAN 0.02 NG/ML Test 11/08/17 22:15 11/08/17 23:25 11/09/17 02:56 11/10/17 05:30 Urine Protein 30 mg/dL (NEG-TRACE) Urine Leukocyte Esterase LARGE (NEG) Urine WBC 17 /hpf (0-5) Urine Bacteria RARE /hpf (NONE) Urine Mucus FEW /lpf (OCC) Red Blood Count 3.63 MIL/MM3 (4.50-5.90) Hemoglobin 9.1 GM/DL (13.0-17.0) Hematocrit 28.0 % (39.0-51.0) Mean Corpuscular Volume 77.2 FL (80.0-100.0) Mean Corpuscular Hemoglobin 25.0 PG (27.0-34.0) Red Cell Distribution Width 18.2 % (11.6-17.2) Neutrophils (%) (Auto) 85.6 % (16.0-70.0) Neutrophils # (Auto) 8.3 TH/MM3 (1.8-7.7) Prothrombin Time 23.3 SEC (9.8-11.6) 20.3 SEC (9.8-11.6) Activated Partial Thromboplast Time 36.9 SEC (24.3-30.1) Random Glucose 117 MG/DL (74-106) Albumin 2.6 GM/DL (3.4-5.0) Calcium Level 8.3 MG/DL (8.5-10.1) Alkaline Phosphatase 44 U/L (45-117) Aspartate Amino Transf (AST/SGOT) 13 U/L (15-37) Alanine Aminotransferase (ALT/SGPT) 9 U/L (12-78) Carbon Dioxide Level 34.8 MEQ/L (21.0-32.0) Anion Gap 2 MEQ/L (5-15) Troponin I LESS THAN 0.02 NG/ML Test 11/11/17 05:41 Prothrombin Time 17.2 SEC (9.8-11.6) Imaging Last Impressions Chest X-Ray 11/09/17 0000 Signed Impressions: Service Date/Time: Saturday, November 09, 2017 04:29 - CONCLUSION: No significant change. Jorge Alberto Richard MD PE at Discharge awake and alert oriented x 3 anicteric no nuchal rigidity lungs- no rales no wheezes port in place- chest wall- site no erythema regualr rhythm abdomen- flabby soft, nontendere extremities - Left AKA right- le- very dry skin open wounds tibial area moves all extremities spontaenously Pt update on day of discharge awake and alert, speehc clear very motivated spoke also with who is very proactive with his care advise ff up with PCP she will call Home health care tor esume care she also administer IV antibiotics Hospital Course 62 years old male Acute respiratory Failure- on top of chronic COPD- 02 dependent 2 LNCRespiratory failure - Untreated JYOTSNA - BiPAP at bedtime and when necessary - DuoNeb scheduled and when necessary - IV steroids- decrease to q 12- change to po Prednsione- short coursetaper - on antibiotics - rocephin - Pulmonary ff Chronic Cellulitis Right lower extremity= per patient was on home course of antibiotics - reveiw- records continue on Vancomycin 1 gm q 12 and IV rocephin till 10/24 - d/w wound care nurse- shaving cream- instructed History of DVT - warfarin with pharmacy consult for therapeutic dosing and monitoring Coronary artery disease - Continue home statin, ASA Type 2 diabetes mellitus - BS elevated 200s with solumedrol - restart his metformin 1ooo mg bid - Insulin sliding scale - Continue glipizide and ADA diet - is very good and knowledgeable about this- she knows that steroids increase this Atrial fibrillation - Continue Coumadin per pharmacy - Continue Cardizem Seizure disorder/Tremor - Continue primidone Hyperlipidemia - pravastatin Deconditionin - restart his Baclofen -PT consult DVT GI prophylaxis - Coumadin - Pepcid PT/OT daily Pt Condition on Discharge: Stable Discharge Disposition: Disch w/ Home Health Serv Discharge Time: > 30 minutes Discharge Instructions DIET: Follow Instructions for: Heart Healthy Diet, Diabetic Diet Speech Therapy-Diet Recommends: Regular Activities you can perform: Weight Bearing as Sonny Activities to Avoid: Strenuous Activity New Orders: PT/INR - 11/13/17 New Medications: Prednisone (Prednisone) 5 Mg Tab 5 MG PO BID for COPD, #23 TAB 0 Refills take 3 tabs bid x 2 days starting then 2 tabs bid x 2 dasy then 1 tab po daily x 3 days then DC Warfarin (Coumadin) 5 Mg Tab 5 MG PO DAILY@1600 for DVT for 30 Days, TAB 3 Refills [Albuterol-Ipratropium Neb] () 1 AMPULE NEBU 1 AMPULE INH Q6HR for COPD for 30 Days [Budeson-Formot 160-4.5 Mcg Inh] () 60 PUFF AERO 2 PUFF INH Q12HR for COPD for 30 Days, #1 Continued Medications: Aspirin (Aspirin) 81 Mg Chew 81 MG CHEW DAILY, TAB 0 Refills Diltiazem CD 24 HR (Diltiazem CD 24 HR) 240 Mg Caper 240 MG PO DAILY, #30 CAP 0 Refills Diphenhydramine (Diphenhydramine) 25 Mg Cap 25 MG PO HS PRN for INSOMNIA, CAP 0 Refills Ferrous Sulfate (Ferrous Sulfate) 325 Mg (65 Mg Iron) Tablet 325 MG PO TIDPC for Nutritional Supplement, #90 TAB 0 Refills Folic Acid (Folic Acid) 0.8 Mg Tab 1000 MCG PO DAILY for Nutritional Supplement, TAB 0 Refills Glipizide (Glipizide) 10 Mg Tab 20 MG PO BID for Blood Sugar Management, #60 TAB 0 Refills Take 30 minutes before a meal Lisinopril (Lisinopril) 10 Mg Tab 10 MG PO DAILY for Blood Pressure Management, #30 TAB Metformin (Metformin) 500 Mg Tab 1000 MG PO DAILY IN THE PM for Blood Sugar Management, #60 TAB 0 Refills Oxygen (O2) (Oxygen (O2)) Device LITER TI.CANULA CONTINUOUS for Prevent Hypoxemia, #2 Oxygen Concentrator Portable Gaseous 2 L/min via Nasal Canula Continuous For 99 months Pravastatin (Pravastatin) 20 Mg Tab 20 MG PO HS for Cholesterol Management, #30 TAB 0 Refills Pregabalin (Lyrica) 100 Mg Cap 100 MG PO Q12HR for neuropathy, #60 CAP Primidone (Primidone) 50 Mg Tab 50 MG PO TID for Control Seizures, #60 TAB 0 Refills Spironolactone (Spironolactone) 25 Mg Tab 25 MG PO DAILY, #30 TAB 0 Refills Venlafaxine ER 24 HR (Venlafaxine ER 24 HR) 150 Mg Tab 300 MG PO DAILY, #30 TAB 0 Refills Discontinued Medications: Warfarin (Coumadin) 4 Mg Tab 4 MG PO DAILY@1600 for Blood Pressure Management, #30 TAB Start taking after INR falls below 3 Osei De León MD Nov 11, 2017 15:48
[2017-11-11] MEDS ORDERED: PANT20 PO (15:55)
[2017-11-11] MEDS ORDERED: METF500 PO (16:00)
[2017-11-11] MEDS ORDERED: WARFARIN SOD 5 MG TAB PO SCH (16:00)
[2017-11-11] MEDS ORDERED: WARFARIN SOD 1 MG TAB PO ONE (16:00)
--- NOTE | 2017-11-11 16:34 | HHI.PR ---
Subjective Remarks alert no sob at rest on O2 NC Objective Vital Signs Date Time Temp Pulse Resp B/P (MAP) Pulse Ox O2 Delivery O2 Flow Rate FiO2 11/11/17 16:00 97.0 81 20 152/70 (97) 99 11/11/17 12:00 97.8 80 20 146/63 (90) 97 11/11/17 08:00 Nasal Cannula 4.00 11/11/17 08:00 97.4 80 20 141/65 (90) 99 11/11/17 08:00 81 11/11/17 07:39 98 Nasal Cannula 2.00 11/11/17 04:08 75 11/11/17 04:00 98.0 78 22 119/69 (86) 98 11/11/17 00:00 98.1 81 20 125/65 (85) 97 11/10/17 23:46 82 11/10/17 20:00 97.8 88 19 128/59 (82) 98 11/10/17 20:00 Nasal Cannula 3.00 11/10/17 19:42 78 11/10/17 19:38 96 Nasal Cannula 3.00 I/O 11/10/17 11/10/17 11/10/17 11/11/17 11/11/17 11/11/17 07:00 15:00 23:00 07:00 15:00 23:00 Intake Total 520 ml 400 ml 900 ml Output Total 625 ml 500 ml 1200 ml Balance -105 ml -100 ml -300 ml Intake Oral 520 ml 400 ml 900 ml Output Urine Total 625 ml 500 ml 1200 ml # Bowel Movements 0 0 Result Diagram: 11/09/17 0256 11/09/17 0256 Objective Remarks GENERAL: SKIN: Warm and dry. HEAD: Atraumatic. Normocephalic. EYES: Pupils equal and round. No scleral icterus. No injection or drainage. ENT: No nasal bleeding or discharge. Mucous membranes pink and moist. NECK: Trachea midline. No JVD. CARDIOVASCULAR: Regular rate and rhythm. RESPIRATORY: No accessory muscle use. Clear to auscultation. Breath sounds equal bilaterally. GASTROINTESTINAL: Abdomen soft, non-tender, nondistended. Hepatic and splenic margins not palpable. MUSCULOSKELETAL: Extremities without clubbing, cyanosis, or edema. No obvious deformities. NEUROLOGICAL: Awake and alert. No obvious cranial nerve deficits. Motor grossly within normal limits. Five out of 5 muscle strength in the arms and legs. Normal speech. PSYCHIATRIC: Appropriate mood and affect; insight and judgment normal. Assessment and Plan Assessment and Plan ASSRESPIRATORY FAILURE COPD AFIB OBESITY PLAN O2 BRONCHODILATOR THERAPY LOOSE WT INCREASE ACTIVITY Terese Gudino MD Nov 11, 2017 16:34
[2017-11-11] MEDS ORDERED: metFORMIN HCL 500 MG TAB PO SCH (18:00)
[2017-11-11] MEDS ORDERED: predniSONE 20 MG TAB PO SCH (21:00)
[2017-11-12] MEDS ORDERED: PANTOPRAZOLE SOD 40 MG DELAYED RELEASE TAB PO SCH (09:00)
== END 2017-11-11 20:21 | disposition home health service (06) | DRG 189 ==
LOC: NEPE 17:36 → NEDA 20:51 → HIMN 22:06 → N04A 11-09 18:49
PROVIDERS: ADMIT Hospitalist; ATTEND Hospitalist
PROC: 5A09357 Assistance with Respiratory Ventilation, Less than 24 Consecutive Hours, Continuous Positive Airway Pressure (ICD-10-PCS; principal; 2017-11-08)
DX: J96.22 Acute and chronic respiratory failure with hypercapnia (principal); E87.2 Acidosis; I42.9 Cardiomyopathy, unspecified; I11.0 Hypertensive heart disease with heart failure; E11.51 Type 2 diabetes mellitus with diabetic peripheral angiopathy without gangrene; L03.115 Cellulitis of right lower limb; I50.9 Heart failure, unspecified; I48.91 Unspecified atrial fibrillation; G25.0 Essential tremor; J44.1 Chronic obstructive pulmonary disease with (acute) exacerbation; N39.0 Urinary tract infection, site not specified; Z99.81 Dependence on supplemental oxygen; E66.01 Morbid (severe) obesity due to excess calories; G40.909 Epilepsy, unspecified, not intractable, without status epilepticus; I25.10 Atherosclerotic heart disease of native coronary artery without angina pectoris; E78.5 Hyperlipidemia, unspecified; F17.210 Nicotine dependence, cigarettes, uncomplicated; M19.90 Unspecified osteoarthritis, unspecified site; G47.33 Obstructive sleep apnea (adult) (pediatric); Z86.718 Personal history of other venous thrombosis and embolism; Z79.84 Long term (current) use of oral hypoglycemic drugs; Z79.01 Long term (current) use of anticoagulants; Z68.27 Body mass index [BMI] 27.0-27.9, adult; Z86.73 Personal history of transient ischemic attack (TIA), and cerebral infarction without residual deficits; I25.2 Old myocardial infarction; Z89.612 Acquired absence of left leg above knee
CPT/HCPCS: 36600; 71045; 80053; 81001; 82550; 82805; 82948; 83690; 83735; 84100; 84484; 85025; 85610; 85730; 87086; 87449; 87641; 93005; 94002; 94640; 94664; 99285; J0696; J1815; J2920; J2997; J3370; J7050

== ENCOUNTER 2017-12-26 07:20 | Emergency (ER) | payer OTHER ==
[~2017-12-26] VITALS: Ht 188 cm; Wt 148.0 kg
[~2017-12-26 07:20] MED LIST changes: +Albuterol-Ipratropium Neb INH; +Budeson-Formot 160-4.5 Mcg Inh INH; -COUM4TAB PO; +COUM5TAB PO; +METF500 PO; -METF500T PO; +PANT20 PO; +PRED5TAB PO
[2017-12-26 07:27] VITALS: BP 139/59; PULSE 122; RESP 28; O2SAT 98
[2017-12-26] MEDS ORDERED: RESP: ALBUTEROL 2.5 MG/IPRATROPIUM 0.5 MG NEB (SCH) INH ONE (07:30)
[2017-12-26] MEDS ORDERED: SODIUM CHLORIDE 0.9% FLUSH 10 ML FLUSH IVF PRN ×2 (07:30)
--- NOTE | 2017-12-26 07:40 | PD ---
HPI Chief Complaint: Respiratory Symptoms Time Seen by Provider: 07:29 Travel History International Travel<30 days: No Contact w/Intl Traveler<30days: No Traveled to known affect area: No History of Present Illness HPI 62 y/o male presents with cough after eating corn chips this morning at 6:30 AM. He has not been able to stop coughing since then and feels like something stuck in his throat. He states it is making him short of breath. He was given a breathing treatment in route. Quality is nonproductive. Severity is frequent. He denies specific modifying factors. History is difficult to obtain given frequency of cough and patient mainly nods his head and points to give history. PFSH Past Medical History Narrative Medical On review of record patient confirms Hx Anticoagulant Therapy: Yes Arthritis: Yes (OA) Asthma: No Atrial Fibrillation: Yes Autoimmune Disease: No Blood Disorders: Yes (PT. HAS HISTORY OF BLOOD CLOTS.) Anxiety: No Depression: No Heart Rhythm Problems: Yes Cardiac Catheterization: Yes Cardiomyopathy: Yes Cardiovascular Problems: Yes ([place]) High Cholesterol: Yes Chemotherapy: No Chest Pain: Yes Congestive Heart Failure: Yes COPD: Yes Cerebrovascular Accident: Yes (TIA) Coronary Artery Disease: Yes Diabetes: Yes Patient Takes Glucophage: Yes Diminished Hearing: No Deep Vein Thrombosis: Yes Endocrine: Yes Gastrointestinal Disorders: No GERD: No Glaucoma: No Genitourinary: No Headaches: Yes Hepatitis: No Hiatal Hernia: No Heparin Induced Thrombocytopen: No Hypertension: Yes Immune Disorder: No Implanted Vascular Access Dvce: Yes (LEFT CHEST ) Kidney Stones: No Medical other: Yes Neurologic: Yes (BRAIN SURGERY, ANEURYSM CLIPPED IN 1990, ESSENTIAL TREMORS) Psychiatric: No Reproductive: No Respiratory: Yes (COPD) Integumentary: Yes (CELLULITIS, WOUND RN DAILY ) Migraines: Yes Myocardial Infarction: Yes (X 2) Radiation Therapy: No Renal Failure: No Sickle Cell Disease: No Sleep Apnea: Yes Thyroid Disease: No Ulcer: No Influenza Vaccination: Yes Past Surgical History Narrative Surgical On review of records, patient confirms Abdominal Surgery: Yes (APPENDECTOMY 1954) AICD: No Appendectomy: Yes Arteriovenous Shunt: No Body Medical Devices: BRAIN CLIPS, Cardiac Surgery: No Cholecystectomy: No Ear Surgery: No Endocrine Surgery: No Eye Surgery: No Genitourinary Surgery: No Gynecologic Surgery: No Insulin Pump: No Joint Replacement: No Neurologic Surgery: Yes (BRAIN ANURYSIM CLIPPED IN 1990.) Oral Surgery: No Pacemaker: No Thoracic Surgery: Yes (TENSION PNEUMOTHORAX-CHEST TUBE --RIGHT 71) Tonsillectomy: Yes (1956) Other Surgery: Yes (brain and back sx) Social History Alcohol Use: Yes (SMALL AMOUNT) Tobacco Use: Yes (4 cig a day) Substance Use: No Allergies-Medications (Allergen,Severity, Reaction): Coded Allergies: MRI PRECAUTION (Verified Allergy, Severe, ANEURSYM CLIPPING, 11/08/17) diatrizoate meglumine (Unverified Allergy, Severe, SHOCK, 11/08/17) gadobenic acid (Unverified Allergy, Severe, SHOCK, 11/08/17) gadodiamide (Unverified Allergy, Severe, SHOCK, 11/08/17) gadoteridol (Unverified Allergy, Severe, SHOCK, 11/08/17) iodine (Unverified Allergy, Severe, 11/08/17) iodixanol (Unverified Allergy, Severe, SHOCK, 11/08/17) iohexol (Unverified Allergy, Severe, SHOCK, 11/08/17) potassium iodide (Unverified Allergy, Severe, 11/08/17) povidone-iodine (Unverified Allergy, Severe, 11/08/17) sodium iodide (Unverified Allergy, Severe, 11/08/17) sodium iodide (Unverified Allergy, Severe, 11/08/17) Reported Meds & Prescriptions Reported Meds & Active Scripts Active Glucophage (Metformin HCl) 500 Mg Tab 1,000 Mg PO BIDPC 30 Days Protonix (Pantoprazole Sodium) 20 Mg Tab 20 Mg PO DAILY Prednisone 5 Mg Tab 5 Mg PO BID take 3 tabs bid x 2 days starting then 2 tabs bid x 2 dasy then 1 tab po daily x 3 days then DC [Budeson-Formot 160-4.5 Mcg Inh] 60 PUFF Aero 2 Puff INH Q12HR 30 Days Coumadin (Warfarin) 5 Mg Tab 5 Mg PO DAILY@1600 30 Days [Albuterol-Ipratropium Neb] 1 AMPULE Nebu 1 Ampule INH Q6HR 30 Days Lyrica (Pregabalin) 100 Mg Cap 100 Mg PO Q12HR Lisinopril 10 Mg Tab 10 Mg PO DAILY Oxygen (O2) Device Liter TI.CANULA CONTINUOUS Oxygen Concentrator Portable Gaseous 2 L/min via Nasal Canula Continuous For 99 months Reported Diphenhydramine (Diphenhydramine HCl) 25 Mg Cap 25 Mg PO HS PRN Folic Acid 0.8 Mg Tab 1,000 Mcg PO DAILY Aspirin 81 Mg Chew 81 Mg CHEW DAILY Ferrous Sulfate 325 Mg (65 Mg Iron) Tablet 325 Mg PO TIDPC Glipizide 10 Mg Tab 20 Mg PO BID Take 30 minutes before a meal Venlafaxine ER 24 HR (Venlafaxine HCl) 150 Mg Tab 300 Mg PO DAILY Diltiazem CD 24 HR 240 Mg Caper 240 Mg PO DAILY Primidone 50 Mg Tab 50 Mg PO TID Pravastatin 20 Mg Tab 20 Mg PO HS Spironolactone 25 Mg Tab 25 Mg PO DAILY Review of Systems ROS Limitations: Other: (Cough) Except as stated in HPI: all other systems reviewed are Neg Physical Exam Exam Limitations: Other: (Cough) Narrative GENERAL: 62-year-old male with frequent cough noted SKIN: Focused skin assessment warm/dry. HEAD: Atraumatic. Normocephalic. EYES: Pupils equal and round. No scleral icterus. No injection or drainage. ENT: No nasal bleeding or discharge. Mucous membranes pink and moist. No foreign body noted to oropharynx, no erythema or swelling noted to oropharynx, uvula midline NECK: Trachea midline. CARDIOVASCULAR: Tachycardic rate and regular rhythm RESPIRATORY: No accessory muscle use. Expiratory wheezing bilaterally. GASTROINTESTINAL: Abdomen soft, non-tender NEUROLOGICAL: Awake. Moves extremities, clear speech with frequent cough Data Data Last Documented VS Vital Signs Date Time Temp Pulse Resp B/P (MAP) Pulse Ox O2 Delivery O2 Flow Rate FiO2 12/26/17 07:30 98 Room Air 12/26/17 07:27 122 28 139/59 (85) Orders Orders Electrocardiogram (12/26/17 07:29) Complete Blood Count With Diff (12/26/17:29) Comprehensive Metabolic Panel (12/26/17:29) Lactic Acid Sepsis Protocol (12/26/17:29) Blood Culture (12/26/17:29) Chest, Pa & Lat (12/26/17 07:29) Ecg Monitoring (12/26/17:29) Iv Access Insert/Monitor (12/26/17:29) Oximetry (12/26/17 07:29) Sodium Chloride 0.9% Flush (Ns Flush) (12/26/17 07:30) B-Type Natriuretic Peptide (12/26/17 07:29) Act Partial Throm Time (Ptt) (12/26/17 07:29) Prothrombin Time / Inr (Pt) (12/26/17 07:29) Magnesium (Mg) (12/26/17 07:29) Sodium Chloride 0.9% Flush (Ns Flush) (12/26/17 07:30) Albuterol-Ipratropium Neb (Duoneb Neb) (12/26/17 07:30) Ceftriaxone Inj (Rocephin Inj) (12/26/17 08:30) Azithromycin Inj (Zithromax Inj) (12/26/17 08:30) Ckmb (Isoenzyme) Profile (12/26/17 08:28) Troponin I (12/26/17 08:28) Sodium Chlorid 0.9% 500 Ml Inj (Ns 500 M (12/26/17 09:00) Methylprednisolone So Succ Inj (Solumedr (12/26/17 09:00) Lactic Acid (12/26/17 09:04) Admit Order (Ed Use Only) (12/26/17 09:06) ^ Other Nursing Orders (12/26/17 09:07) Labs Laboratory Tests Test 12/26/17 07:40 White Blood Count 14.6 TH/MM3 Red Blood Count 4.24 MIL/MM3 Hemoglobin 10.4 GM/DL Hematocrit 34.2 % Mean Corpuscular Volume 80.6 FL Mean Corpuscular Hemoglobin 24.6 PG Mean Corpuscular Hemoglobin Concent 30.6 % Red Cell Distribution Width 19.2 % Platelet Count 354 TH/MM3 Mean Platelet Volume 7.9 FL Neutrophils (%) (Auto) 70.4 % Lymphocytes (%) (Auto) 20.2 % Monocytes (%) (Auto) 6.4 % Eosinophils (%) (Auto) 2.0 % Basophils (%) (Auto) 1.0 % Neutrophils # (Auto) 10.3 TH/MM3 Lymphocytes # (Auto) 2.9 TH/MM3 Monocytes # (Auto) 0.9 TH/MM3 Eosinophils # (Auto) 0.3 TH/MM3 Basophils # (Auto) 0.1 TH/MM3 CBC Comment DIFF FINAL Differential Comment Prothrombin Time 18.7 SEC Prothromb Time International Ratio 1.8 RATIO Activated Partial Thromboplast Time 33.2 SEC Blood Urea Nitrogen 9 MG/DL Creatinine 0.97 MG/DL Random Glucose 173 MG/DL Total Protein 8.4 GM/DL Albumin 3.3 GM/DL Calcium Level 8.7 MG/DL Magnesium Level 2.2 MG/DL Alkaline Phosphatase 58 U/L Aspartate Amino Transf (AST/SGOT) 12 U/L Alanine Aminotransferase (ALT/SGPT) 11 U/L Total Bilirubin 0.2 MG/DL Sodium Level 135 MEQ/L Potassium Level 3.5 MEQ/L Chloride Level 99 MEQ/L Carbon Dioxide Level 24.4 MEQ/L Anion Gap 12 MEQ/L Estimat Glomerular Filtration Rate 78 ML/MIN Lactic Acid Level 6.4 mmol/L Total Creatine Kinase 54 U/L Troponin I LESS THAN 0.02 NG/ML B-Type Natriuretic Peptide 43 PG/ML MDM Medical Decision Making Medical Screen Exam Complete: Yes Emergency Medical Condition: Yes Medical Record Reviewed: Yes (Past history confirmed, recent history reviewed) Interpretation(s) CBC & BMP Diagram 12/26/17 07:40 Total Protein 8.4 H, Albumin 3.3 L, Calcium Level 8.7, Magnesium Level 2.2, Alkaline Phosphatase 58, Aspartate Amino Transf (AST/SGOT) 12 L, Alanine Aminotransferase (ALT/SGPT) 11 L, Total Bilirubin 0.2 Last 24 hours Impressions Chest X-Ray 12/26/17 0729 Signed Impressions: Service Date/Time: December 08:36 - CONCLUSION: Underinflated examination with atelectasis at the lung bases. No definite acute finding is identified. Jorge Alberto Bazzi MD Differential Diagnosis Aspiration, foreign body, COPD, URI, CHF Narrative Course We will check blood work, chest x-ray and dose with DuoNeb and reevaluate. Patient states that area of irritation in his throat and does not appear to be a food bolus impaction so we will hold glucagon and nitro at this time Patient has leukocytosis and tachycardia but no obvious source of infection. He has significantly elevated lactate at 6 so was given a dose of Rocephin and azithromycin but these are likely related to the significant choking episode patient has had that is been prolonged. Will place in observation for further monitoring. Physician Communication Physician Communication dr rosado agrees to observation Diagnosis Primary Impression: COPD (chronic obstructive pulmonary disease) Qualified Codes: J44.1 - Chronic obstructive pulmonary disease with (acute) exacerbation Additional Impressions: Lactic acidosis Leukocytosis Qualified Codes: D72.829 - Elevated white blood cell count, unspecified Choking episode Admitting Information Admitting Physician Requests: Observation Brea Reddy MD Dec 26, 2017 07:40
[2017-12-26 08:00] LABS: AUTOMATED NEUTROPHIL # 10.3 TH/MM3 (1.8-7.7); BASOPHIL # 0.1 TH/MM3 (0-0.2); EOSINOPHIL # 0.3 TH/MM3 (0-0.4); HEMATOCRIT 34.2 % (39.0-51.0); HEMOGLOBIN 10.4 GM/DL (13.0-17.0); LYMPH % 20.2 % (9.0-44.0); LYMPHOCYTE # 2.9 TH/MM3 (1.0-4.8); MEAN CELL VOLUME 80.6 FL (80.0-100.0); MEAN CORPUSCULAR HEMOGLOBIN 24.6 PG (27.0-34.0); MEAN CORPUSCULAR HGB CONC 30.6 % (32.0-36.0); MEAN PLATELET VOLUME 7.9 FL (7.0-11.0); MONO % 6.4 % (0.0-8.0); MONOCYTE # 0.9 TH/MM3 (0-0.9); NEUT % 70.4 % (16.0-70.0); PLATELET COUNT 354 TH/MM3 (150-450); RED BLOOD COUNT 4.24 MIL/MM3 (4.50-5.90); RED CELL DISTRIBUTION WIDTH 19.2 % (11.6-17.2); WHITE BLOOD COUNT 14.6 TH/MM3 (4.0-11.0)
[2017-12-26 08:02] LABS: INTERNATIONAL NORMALIZED RATIO 1.8 RATIO; PROTHROMBIN TIME - PATIENT 18.7 SEC (9.8-11.6)
[2017-12-26 08:16] LABS: ALBUMIN 3.3 GM/DL (3.4-5.0); ALT (GPT) 11 U/L (12-78); AST (GOT) 12 U/L (15-37); BICARBONATE 24.4 MEQ/L (21.0-32.0); BLOOD UREA NITROGEN 9 MG/DL (7-18); CALCIUM 8.7 MG/DL (8.5-10.1); CHLORIDE 99 MEQ/L (98-107); CREATININE 0.97 MG/DL (0.60-1.30); GLOMERULAR FILTRATION RATE 78 ML/MIN (>89); GLUCOSE,RANDOM 173 MG/DL (74-106); MAGNESIUM 2.2 MG/DL (1.5-2.5); SODIUM (NA) 135 MEQ/L (136-145)
[2017-12-26 08:19] LABS: ALKALINE PHOSPHATASE 58 U/L (45-117); TOTAL BILIRUBIN ADULT 0.2 MG/DL (0.2-1.0); TOTAL PROTEIN 8.4 GM/DL (6.4-8.2)
[2017-12-26 08:21] LABS: LACTIC ACID SEPSIS PROTOCOL 6.4 mmol/L (0.4-2.0)
[2017-12-26] MEDS ORDERED: cefTRIAXone INJ 1,000 MG in SODIUM CHLORIDE 0.9% INJ 100 ML IV ONE (08:30)
[2017-12-26] MEDS ORDERED: AZITHROMYCIN INJ 500 MG in SODIUM CHLOR 0.9% 250 ML INJ 250 ML IV ONE (08:30)
[2017-12-26 08:49] LABS: TROPONIN I LESS THAN 0.02 NG/ML (0.02-0.05)
--- NOTE | 2017-12-26 08:51 | RADRPT ---
EXAM DATE/TIME: 12/26/2017 08:36 [facility] COMPARISON: CHEST SINGLE AP, November 09, 2017, 4:29. CHEST PA & LAT, March 30, 2015, 12:57. INDICATIONS : Cough. Patient states choking on corn chip. MEDICAL HISTORY : Diabetes mellitus type II. Chronic obstructive pulmonary disease. Cardiovascular disease. SURGICAL HISTORY : None. ENCOUNTER: Subsequent ACUITY: 1 day PAIN SCORE: 0/10 LOCATION: Bilateral chest FINDINGS: Frontal and lateral views of the chest demonstrate a normal-sized cardiac silhouette. Left chest wall [id number] is present. Lungs are underinflated with atelectasis at the lung bases. No pleural eff usion or pneumothorax is identified. No definite airspace consolidation is seen. Bones and soft tissu es demonstrate no acute finding. CONCLUSION: Underinflated examination with atelectasis at the lung bases. No definite acute finding is identified . Jorge Alberto Bazzi MD on December 26, 2017 at 8:47 Board Certified Radiologist. This report was verified electronically.
[2017-12-26] MEDS ORDERED: methylPREDNISolone SOD SUCC 125 MG/2 ML VIAL IV PUSH ONE (09:00)
[2017-12-26] MEDS ORDERED: SODIUM CHLORID 0.9% 500 ML INJ 500 ML IV ONE (09:00)
[2017-12-26] MEDS ORDERED: NALOXONE HCL 0.4 MG/ML AMP IV PUSH PRN (09:15)
[2017-12-26] MEDS ORDERED: SODIUM CHLORIDE 0.9% FLUSH 10 ML FLUSH IV FLUSH PRN (09:15)
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
[2017-12-26 12:29] VITALS: BP 142/68
--- NOTE | 2017-12-26 20:43 | EKG ---
Date Performed: 12/26/2017 Time Performed: 07:47:38 PTAGE: 62 years EKG: SINUS TACHYCARDIA NONSPECIFIC T-WAVE ABNORMALITY Compared to previous tracing, sinus rate i s faster ABNORMAL RHYTHM ECG PREVIOUS TRACING : 11/08/2017 18.42 DOCTOR: Ashish Charles Interpretating Date/Time 12/26/2017 20:41:54
[2017-12-26] MEDS ORDERED: SODIUM CHLORIDE 0.9% FLUSH 10 ML FLUSH IV FLUSH SCH (21:00)
== END 2017-12-26 12:29 | disposition home or self-care (01) ==
LOC: NEPC 07:20 → NEDA 09:08 → UNDOADMOB 09:08 → NEPC 12:29
DX: J44.1 Chronic obstructive pulmonary disease with (acute) exacerbation (principal); E87.2 Acidosis; D72.829 Elevated white blood cell count, unspecified; R09.89 Other specified symptoms and signs involving the circulatory and respiratory systems; I11.0 Hypertensive heart disease with heart failure; E11.9 Type 2 diabetes mellitus without complications; E78.00 Pure hypercholesterolemia, unspecified; I50.32 Chronic diastolic (congestive) heart failure; I25.10 Atherosclerotic heart disease of native coronary artery without angina pectoris; I25.2 Old myocardial infarction; I48.91 Unspecified atrial fibrillation; F17.210 Nicotine dependence, cigarettes, uncomplicated; Z79.84 Long term (current) use of oral hypoglycemic drugs; Z79.01 Long term (current) use of anticoagulants; Z86.718 Personal history of other venous thrombosis and embolism; Z86.73 Personal history of transient ischemic attack (TIA), and cerebral infarction without residual deficits
CPT/HCPCS: 71046; 80053; 82550; 83605; 83735; 83880; 84484; 85025; 85610; 85730; 87040; 93005; 94664; 96365; 96368; 99284; J0456; J0696; J1642; J7050

== ENCOUNTER 2018-03-04 07:53 | Inpatient (IN) | payer OTHER, MEDICARE ==
[~2018-03-04] VITALS: Ht 182.9 cm; Wt 64.0 kg
[2018-03-04] VITALS (14 sets, daily range): BP systolic 131–199; BP diastolic 60–84; PULSE 72–105; RESP 11–16; TEMP 98.1–98.4; O2SAT 90–100
--- NOTE | 2018-03-04 08:28 | PD ---
HPI Chief Complaint: Altered Mental Status Time Seen by Provider: 08:05 Travel History International Travel<30 days: No Contact w/Intl Traveler<30days: No Traveled to known affect area: No History of Present Illness HPI This patient is brought in by ambulance. I am told that he was found this morning lying on the ground near the bed. Patient has significant altered mental status. He cannot provide any useful history or review of systems. He is very obtunded. PFSH Past Medical History Hx Anticoagulant Therapy: Yes Arthritis: Yes (OA) Asthma: No Atrial Fibrillation: Yes Autoimmune Disease: No Blood Disorders: Yes (PT. HAS HISTORY OF BLOOD CLOTS.) Anxiety: No Depression: No Heart Rhythm Problems: Yes Cardiac Catheterization: Yes Cardiomyopathy: Yes Cardiovascular Problems: Yes ([place]) High Cholesterol: Yes Chemotherapy: No Chest Pain: Yes Congestive Heart Failure: Yes COPD: Yes Cerebrovascular Accident: Yes (TIA) Coronary Artery Disease: Yes Diabetes: Yes Diminished Hearing: No Deep Vein Thrombosis: Yes Endocrine: Yes Gastrointestinal Disorders: No GERD: No Glaucoma: No Genitourinary: No Headaches: Yes Hepatitis: No Hiatal Hernia: No Heparin Induced Thrombocytopen: No Hypertension: Yes Immune Disorder: No Implanted Vascular Access Dvce: Yes (LEFT CHEST ) Kidney Stones: No Neurologic: Yes (BRAIN SURGERY, ANEURYSM CLIPPED IN 1990, ESSENTIAL TREMORS) Psychiatric: No Reproductive: No Respiratory: Yes (COPD) Integumentary: Yes (CELLULITIS, WOUND RN DAILY ) Migraines: Yes Myocardial Infarction: Yes (X 2) Radiation Therapy: No Renal Failure: No Sickle Cell Disease: No Sleep Apnea: Yes Thyroid Disease: No Ulcer: No Past Surgical History Abdominal Surgery: Yes (APPENDECTOMY 1954) AICD: No Appendectomy: Yes Arteriovenous Shunt: No Body Medical Devices: BRAIN CLIPS, Cardiac Surgery: No Cholecystectomy: No Ear Surgery: No Endocrine Surgery: No Eye Surgery: No Genitourinary Surgery: No Gynecologic Surgery: No Insulin Pump: No Joint Replacement: No Neurologic Surgery: Yes (BRAIN ANURYSIM CLIPPED IN 1990.) Oral Surgery: No Pacemaker: No Thoracic Surgery: Yes (TENSION PNEUMOTHORAX-CHEST TUBE --RIGHT 71) Tonsillectomy: Yes (1956) Other Surgery: Yes (brain and back sx) Social History Alcohol Use: Yes (SMALL AMOUNT) Tobacco Use: Yes (4 cig a day) Substance Use: No Allergies-Medications (Allergen,Severity, Reaction): Coded Allergies: MRI PRECAUTION (Verified Allergy, Severe, ANEURSYM CLIPPING, 03/04/18) diatrizoate meglumine (Unverified Allergy, Severe, SHOCK, 03/04/18) gadobenic acid (Unverified Allergy, Severe, SHOCK, 03/04/18) gadodiamide (Unverified Allergy, Severe, SHOCK, 03/04/18) gadoteridol (Unverified Allergy, Severe, SHOCK, 03/04/18) iodine (Unverified Allergy, Severe, 03/04/18) iodixanol (Unverified Allergy, Severe, SHOCK, 03/04/18) iohexol (Unverified Allergy, Severe, SHOCK, 03/04/18) potassium iodide (Unverified Allergy, Severe, 03/04/18) povidone-iodine (Unverified Allergy, Severe, 03/04/18) sodium iodide (Unverified Allergy, Severe, 03/04/18) sodium iodide (Unverified Allergy, Severe, 03/04/18) Reported Meds & Prescriptions Reported Meds & Active Scripts Active Glucophage (Metformin HCl) 500 Mg Tab 1,000 Mg PO BIDPC 30 Days Protonix (Pantoprazole Sodium) 20 Mg Tab 20 Mg PO DAILY Prednisone 5 Mg Tab 5 Mg PO BID take 3 tabs bid x 2 days starting then 2 tabs bid x 2 dasy then 1 tab po daily x 3 days then DC [Budeson-Formot 160-4.5 Mcg Inh] 60 PUFF Aero 2 Puff INH Q12HR 30 Days Coumadin (Warfarin) 5 Mg Tab 5 Mg PO DAILY@1600 30 Days [Albuterol-Ipratropium Neb] 1 AMPULE Nebu 1 Ampule INH Q6HR 30 Days Lyrica (Pregabalin) 100 Mg Cap 100 Mg PO Q12HR Lisinopril 10 Mg Tab 10 Mg PO DAILY Oxygen (O2) Device Liter TI.CANULA CONTINUOUS Oxygen Concentrator Portable Gaseous 2 L/min via Nasal Canula Continuous For 99 months Reported Diphenhydramine (Diphenhydramine HCl) 25 Mg Cap 25 Mg PO HS PRN Folic Acid 0.8 Mg Tab 1,000 Mcg PO DAILY Aspirin 81 Mg Chew 81 Mg CHEW DAILY Ferrous Sulfate 325 Mg (65 Mg Iron) Tablet 325 Mg PO TIDPC Glipizide 10 Mg Tab 20 Mg PO BID Take 30 minutes before a meal Venlafaxine ER 24 HR (Venlafaxine HCl) 150 Mg Tab 300 Mg PO DAILY Diltiazem CD 24 HR 240 Mg Caper 240 Mg PO DAILY Primidone 50 Mg Tab 50 Mg PO TID Pravastatin 20 Mg Tab 20 Mg PO HS Spironolactone 25 Mg Tab 25 Mg PO DAILY Review of Systems ROS Limitations: Altered Mental Status, Poor Historian Physical Exam Narrative GENERAL: Morbidly obese patient with altered mental status . SKIN: Focused skin assessment reveals no rash and nodules. Skin is Warm and dry. HEAD: Atraumatic. Normocephalic. EYES: Pupils equal and round. No scleral icterus. No injection or drainage. ENT: No nasal bleeding or discharge. Mucous membranes pink and moist. NECK: Trachea midline. No JVD. CARDIOVASCULAR: Regular rate and rhythm. No murmur appreciated. RESPIRATORY: No accessory muscle use. Clear to auscultation. Breath sounds equal bilaterally. GASTROINTESTINAL: Abdomen soft, non-tender, nondistended. Hepatic and splenic margins not palpable. MUSCULOSKELETAL: Has a left AKA. Stump looks good. Right leg is edematous and erythematous and crusted over and has yellow honey crusting . NEUROLOGICAL: Quite obtunded. He will arouse to loud voice but then dozes off. He does not answer questions or follow commands. Pretty much nonverbal. Impossible to test motor strength or sensation given his limited participation PSYCHIATRIC: Impossible to test mood and affect; insight and judgment poor. Data Data Last Documented VS Vital Signs Date Time Temp Pulse Resp B/P (MAP) Pulse Ox O2 Delivery O2 Flow Rate FiO2 03/04/18 11:57 81 16 137/61 (86) 100 Nasal Cannula 4.00 03/04/18 10:54 98.3 Orders Orders Electrocardiogram (03/04/18 08:16) Complete Blood Count With Diff (03/04/18 08:16) Comprehensive Metabolic Panel (03/04/18 08:16) Thyroid Stimulating Hormone (03/04/18 08:16) Urinalysis - C+S If Indicated (03/04/18 08:16) Arterial Blood Gas (Abg) (03/04/18 08:16) Blood Culture (03/04/18 08:16) Chest, Single Ap (03/04/18 08:16) Ct Brain W/O Iv Contrast(Rout) (03/04/18 08:16) Blood Glucose (03/04/18 08:16) Ecg Monitoring (03/04/18 08:16) Iv Access Insert/Monitor (03/04/18 08:16) Oximetry (03/04/18 08:16) Oxygen Administration (03/04/18 08:16) Urinary Catheter Insert/Apply (03/04/18 08:16) Sodium Chloride 0.9% Flush (Ns Flush) (03/04/18 08:30) Drug Screen, Random Urine (03/04/18 08:16) Alcohol (Ethanol) (03/04/18 08:16) Lactic Acid (03/04/18 08:16) Creatine Kinase (Cpk) (03/04/18 08:16) Urine Culture (03/04/18 09:10) Vancomycin Inj (Vancomycin Inj) (03/04/18 10:45) Prothrombin Time / Inr (Pt) (03/04/18 10:32) Labetalol Inj (Trandate Inj) (03/04/18 11:30) Labs Laboratory Tests Test 03/04/18 08:16 03/04/18 08:26 03/04/18 09:10 03/04/18 10:35 Blood Gas Puncture Site RT RADIAL Blood Gas Patient Temperature 98.6 Blood Gas HCO3 31 mmol/L Blood Gas Base Excess 6.0 mmol/L Blood Gas Oxygen Saturation 93 % Arterial Blood pH 7.39 Arterial Blood Partial Pressure CO2 52 mmHg Arterial Blood Partial Pressure O2 92 mmHG Arterial Blood Oxygen Content 13.8 Vol % Arterial Blood Carboxyhemoglobin 3.8 % Arterial Blood Methemoglobin 0.6 % Blood Gas Hemoglobin 10.5 G/DL Oxygen Delivery Device NASAL CANNULA Blood Gas Liter Flow 4 L/M White Blood Count 13.3 TH/MM3 Red Blood Count 4.42 MIL/MM3 Hemoglobin 10.5 GM/DL Hematocrit 34.8 % Mean Corpuscular Volume 78.7 FL Mean Corpuscular Hemoglobin 23.7 PG Mean Corpuscular Hemoglobin Concent 30.1 % Red Cell Distribution Width 17.9 % Platelet Count 292 TH/MM3 Mean Platelet Volume 8.2 FL Neutrophils (%) (Auto) 76.3 % Lymphocytes (%) (Auto) 14.1 % Monocytes (%) (Auto) 7.4 % Eosinophils (%) (Auto) 1.4 % Basophils (%) (Auto) 0.8 % Neutrophils # (Auto) 10.1 TH/MM3 Lymphocytes # (Auto) 1.9 TH/MM3 Monocytes # (Auto) 1.0 TH/MM3 Eosinophils # (Auto) 0.2 TH/MM3 Basophils # (Auto) 0.1 TH/MM3 CBC Comment DIFF FINAL Differential Comment Blood Urea Nitrogen 9 MG/DL Creatinine 0.98 MG/DL Random Glucose 184 MG/DL Total Protein 8.3 GM/DL Albumin 2.7 GM/DL Calcium Level 8.7 MG/DL Alkaline Phosphatase 55 U/L Aspartate Amino Transf (AST/SGOT) 15 U/L Alanine Aminotransferase (ALT/SGPT) 12 U/L Total Bilirubin 0.6 MG/DL Sodium Level 135 MEQ/L Potassium Level 3.8 MEQ/L Chloride Level 99 MEQ/L Carbon Dioxide Level 29.6 MEQ/L Anion Gap 6 MEQ/L Estimat Glomerular Filtration Rate 77 ML/MIN Lactic Acid Level 1.1 mmol/L Total Creatine Kinase 227 U/L Thyroid Stimulating Hormone 3rd Gen 1.010 uIU/ML Ethyl Alcohol Level LESS THAN 3 MG/DL Urine Color YELLOW Urine Turbidity HAZY Urine pH 7.0 Urine Specific [place] 1.004 Urine Protein NEG mg/dL Urine Glucose (UA) NEG mg/dL Urine Ketones NEG mg/dL Urine Occult Blood NEG Urine Nitrite POS Urine Bilirubin NEG Urine Urobilinogen LESS THAN 2 mg/dL Urine Leukocyte Esterase LARGE Urine RBC 1 /hpf Urine WBC 39 /hpf Urine Squamous Epithelial Cells 1 /hpf Urine Bacteria MANY /hpf Microscopic Urinalysis Comment CATH-CULTURE IND Urine Opiates Screen NEG Urine Barbiturates Screen NEG Urine Amphetamines Screen NEG Urine Benzodiazepines Screen NEG Urine Cocaine Screen NEG Urine Cannabinoids Screen NEG Prothrombin Time 11.9 SEC Prothromb Time International Ratio 1.2 [facility] Medical Decision Making Medical Screen Exam Complete: Yes Emergency Medical Condition: Yes Medical Record Reviewed: Yes Differential Diagnosis Hypercarbia, intracranial hemorrhage, electrolyte abnormality, cellulitis, sepsis Narrative Course I have reviewed the patient's electronic medical record. Patient has numerous chronic medical problems. He has COPD and diastolic dysfunction. He was last here December 2017 His port is accessed ABG shows hypercarbia at 52 but this is chronic. He is perfectly compensated with pH of 7.39 and all of his ABGs have at least this much CO2 on them. Patient wears oxygen at home. On nasal cannula he has saturations of 100 while sitting up. If he slouches down hours flat his saturations drop His mental status is poor. I have ordered extensive workup to evaluate I reviewed his chest x-ray which shows no pneumothorax Brain CT is negative Catheterized urine shows 39 white cells and will be cultured Temperature is 98.2 2 blood cultures obtained General lab studies reasonably normal Tox screen negative I was observed the patient here 5 hours and he still is quite altered and clearly not stable for outpatient follow-up Some degree of cellulitis suggested in his right leg and I gave her 1 g IV vancomycin Case reviewed with hospitalist who will admit Critical Care Narrative Aggregate critical care time was 40 minutes. Time to perform other separately billable procedures was not included in the critical care time. My time did not include minutes spent treating any other patients simultaneously or on activities that did not directly contribute to the patient's treatment. The services I provided to this patient were to treat and/or prevent clinically significant deterioration that could result in: Intracranial hemorrhage, brain stem herniation, respiratory failure, hypercarbia I provided critical care services requiring my management, as noted below: Chart data review, documentation time, medication orders and management, vital sign assessments/reviewing monitor data, ordering and reviewing lab tests, ordering and interpreting/reviewing x-rays and diagnostic studies, care of the patient and discussion of the patient with the admitting physicians. Diagnosis Primary Impression: Altered mental status Qualified Codes: R41.82 - Altered mental status, unspecified Additional Impressions: Cellulitis of right leg Obesity, morbid, BMI 40.0-49.9 Admitting Information Admitting Physician Requests: Brandon Calixto MD Mar 04, 2018 08:28
[2018-03-04] MEDS ORDERED: SODIUM CHLORIDE 0.9% FLUSH 10 ML FLUSH IV FLUSH PRN (08:30)
[2018-03-04 08:47] LABS: AUTOMATED NEUTROPHIL # 10.1 TH/MM3 (1.8-7.7); BASOPHIL # 0.1 TH/MM3 (0-0.2); BASOPHIL % 0.8 % (0.0-2.0); EOSINOPHIL # 0.2 TH/MM3 (0-0.4); EOSINOPHIL % 1.4 % (0.0-4.0); HEMATOCRIT 34.8 % (39.0-51.0); HEMOGLOBIN 10.5 GM/DL (13.0-17.0); LYMPH % 14.1 % (9.0-44.0); LYMPHOCYTE # 1.9 TH/MM3 (1.0-4.8); MEAN CELL VOLUME 78.7 FL (80.0-100.0); MEAN CORPUSCULAR HEMOGLOBIN 23.7 PG (27.0-34.0); MEAN CORPUSCULAR HGB CONC 30.1 % (32.0-36.0); MEAN PLATELET VOLUME 8.2 FL (7.0-11.0); MONO % 7.4 % (0.0-8.0); NEUT % 76.3 % (16.0-70.0); PLATELET COUNT 292 TH/MM3 (150-450); RED BLOOD COUNT 4.42 MIL/MM3 (4.50-5.90); RED CELL DISTRIBUTION WIDTH 17.9 % (11.6-17.2); WHITE BLOOD COUNT 13.3 TH/MM3 (4.0-11.0)
[2018-03-04 09:08] LABS: ALBUMIN 2.7 GM/DL (3.4-5.0); AST (GOT) 15 U/L (15-37); BICARBONATE 29.6 MEQ/L (21.0-32.0); BLOOD UREA NITROGEN 9 MG/DL (7-18); CALCIUM 8.7 MG/DL (8.5-10.1); CHLORIDE 99 MEQ/L (98-107); CREATININE 0.98 MG/DL (0.60-1.30); GLOMERULAR FILTRATION RATE 77 ML/MIN (>89); GLUCOSE,RANDOM 184 MG/DL (74-106); SODIUM (NA) 135 MEQ/L (136-145)
[2018-03-04 09:09] LABS: ALT (GPT) 12 U/L (12-78)
--- NOTE | 2018-03-04 09:16 | RADRPT ---
EXAM DATE: 03/04/2018 8:43 AM EDT AGE/SEX: 62 years / Male INDICATIONS: Short of breath after syncopal episode. CLINICAL DATA: This is the patient's initial encounter. Patient reports that signs and symptoms have been present for 1 day and indicates a pain score of Nonresponsive. MEDICAL/SURGICAL HISTORY: . Diabetes mellitus type II. Chronic obstructive pulmonary disease. C ardiovascular disease. None. [place] [facility] [place]. . FINDINGS: Portable AP view of the chest demonstrates a normal-sized cardiac silhouette. Left chest wall Infuse- a-Port is present. Lungs are underinflated with likely atelectasis at the lung bases. No pleural effu simona or pneumothorax is identified. The bones and soft tissues demonstrate no acute abnormality. CONCLUSION: Under inflation with mild bibasilar opacity which could represent atelectasis or mild consolidation. Atelectasis is favored given the appearance. Electronically signed by: Jorge Alberto Bazzi MD 03/04/2018 9:14 AM EDT
[2018-03-04 09:19] LABS: ALKALINE PHOSPHATASE 55 U/L (45-117); TOTAL BILIRUBIN ADULT 0.6 MG/DL (0.2-1.0); TOTAL PROTEIN 8.3 GM/DL (6.4-8.2)
[2018-03-04 09:43] LABS: BACTERIA, URINE MANY /hpf; BILIRUBIN, URINE NEG (NEG); BLOOD, URINE NEG (NEG); GLUCOSE,URINE NEG (NEG); KETONE, URINE NEG (NEG); NITRITE,URINE POS (NEG); SQUAMOUS EPITHELIAL CELL URINE 1 /hpf (0-5); URINE COLOR YELLOW (YELLW/STRAW); URINE LEUKOCYTE ESTERASE LARGE (NEG)
--- NOTE | 2018-03-04 09:54 | RADRPT ---
EXAM DATE: 03/04/2018 9:39 AM EDT AGE/SEX: 62 years / Male INDICATIONS: Altered mental status. CLINICAL DATA: This is the patient's initial encounter. Patient reports that signs and symptoms have been present for 1 day and indicates a pain score of Nonresponsive. MEDICAL/SURGICAL HISTORY: Cerebrovascular disease. Cardiovascular disease. Aneurysm, intracranial . Seizures. Craniotomy. Aneurysm clip. RADIATION DOSE: 63.64 CTDI (mGy) COMPARISON: [facility], CT BRAIN W/O CONTRAST, 11/01/2017. . TECHNIQUE: CT of the head without contrast. Using automated exposure control and adjustment of the mA and/or kV according to patient size, radiation dose was kept as low as reasonably achievable to ob tain optimal diagnostic quality images. DICOM format image data is available electronically for revi ew and comparison. FINDINGS: Cerebrum: The ventricles are normal for age. Stable mild bilateral cortical atrophy. No evidence of midline shift, mass lesion, hemorrhage or acute infarction. No extraaxial fluid collections are see n. Stable postsurgical changes in the right frontal temporal location for previous aneurysm clipping. Stable chronic white matter changes bilaterally. Posterior Fossa: The cerebellum and brainstem are intact. The 4th ventricle is midline. The cerebe llopontine angle is unremarkable. Extracranial: The visualized portion of the orbits is intact. Skull: No evidence of skull fracture. There is good alignment of the right-sided craniotomy flap. St able examination. No significant change compared to the prior study. CONCLUSION: 1. Stable CT scan of the brain compared to the prior examination. 2. No focal or acute intracranial hemorrhage. Electronically signed by: Santana Biswas MD 03/04/2018 9:53 AM EDT
[2018-03-04] MEDS ORDERED: VANCOMYCIN INJ 1,000 MG in SODIUM CHLOR 0.9% 250 ML INJ 250 ML IV ONE (10:45)
[2018-03-04 11:05] LABS: INTERNATIONAL NORMALIZED RATIO 1.2 RATIO; PROTHROMBIN TIME - PATIENT 11.9 SEC (9.8-11.6)
[2018-03-04] MEDS ORDERED: LABETALOL HCL 100 MG/20 ML VIAL IV PUSH ONE (11:30)
[2018-03-04] MEDS ORDERED: GLUCAGON 1 MG/ML VIAL OTHER PRN (13:30)
[2018-03-04] MEDS ORDERED: Vancomycin Consult Pharmacy 1 EA OTHER SCH (13:30)
[2018-03-04] MEDS ORDERED: DEXTROSE 50% IN WATER 50 ML VIAL(D50) IV PUSH PRN (13:30)
--- NOTE | 2018-03-04 13:34 | HHI.HP ---
[facility] Primary Care Physician Unknown Admission Diagnosis AMS,R leg cellulitis,morbid obesity Diagnoses: (1) Acute encephalopathy Diagnosis: Principal Chief Complaint: altered mental status Travel History International Travel<30 Days: No Contact w/Intl Traveler <30 Da: No Traveled to Known Affected Are: No History of Present Illness patient is a 62 y/o male with multiple comorbidities including Diabetes Mellitus ,Chronic right leg lymphedema ,Recurrent cellulitis,Recurrent DVTs, Hyperlipidemia,Atrial fibrillation,Cardiomyopathy,Congestive heart failure, Coronary artery disease,Multiple CVAs and TIAs,Endocarditis,Hypertension,COPD who was brought to ER with altered mental status. information is limited due to his mental status. however as per the ER physician, the patient was found on the floor near his bed. Review of Systems ROS Limitations: Altered Mental Status Past Family Social History Past Medical History Diabetes Mellitus Chronic right leg lymphedema Recurrent cellulitis Recurrent DVTs Hyperlipidemia Atrial fibrillation Cardiomyopathy Congestive heart failure Coronary artery disease Multiple CVAs and TIAs Endocarditis Hypertension COPD Migraines Essential tremors Osteoarthritis Degenerative disc disease Past Surgical History Right subclavian port placement Left leg amputation Brain surgery with aneurysm clipping Fibrous tumor removed from back Knee surgery Elbow surgery Tonsillectomy Appendectomy Past Surgical History Past Surgical History Right subclavian port placement Left leg amputation Brain surgery with aneurysm clipping Fibrous tumor removed from back Knee surgery Elbow surgery Tonsillectomy Appendectomy Reported Medications Glucophage (Metformin HCl) 500 Mg Tab 1,000 Mg PO BIDPC 30 Days Protonix (Pantoprazole Sodium) 20 Mg Tab 20 Mg PO DAILY Prednisone 5 Mg Tab 5 Mg PO BID take 3 tabs bid x 2 days starting then 2 tabs bid x 2 dasy then 1 tab po daily x 3 days then DC [Budeson-Formot 160-4.5 Mcg Inh] 60 PUFF Aero 2 Puff INH Q12HR 30 Days Coumadin (Warfarin) 5 Mg Tab 5 Mg PO DAILY@1600 30 Days [Albuterol-Ipratropium Neb] 1 AMPULE Nebu 1 Ampule INH Q6HR 30 Days Lyrica (Pregabalin) 100 Mg Cap 100 Mg PO Q12HR Lisinopril 10 Mg Tab 10 Mg PO DAILY Oxygen (O2) Device Liter TI.CANULA CONTINUOUS Oxygen Concentrator Portable Gaseous 2 L/min via Nasal Canula Continuous For 99 months Reported Diphenhydramine (Diphenhydramine HCl) 25 Mg Cap 25 Mg PO HS PRN Folic Acid 0.8 Mg Tab 1,000 Mcg PO DAILY Aspirin 81 Mg Chew 81 Mg CHEW DAILY Ferrous Sulfate 325 Mg (65 Mg Iron) Tablet 325 Mg PO TIDPC Glipizide 10 Mg Tab 20 Mg PO BID Take 30 minutes before a meal Venlafaxine ER 24 HR (Venlafaxine HCl) 150 Mg Tab 300 Mg PO DAILY Diltiazem CD 24 HR 240 Mg Caper 240 Mg PO DAILY Primidone 50 Mg Tab 50 Mg PO TID Pravastatin 20 Mg Tab 20 Mg PO HS Spironolactone 25 Mg Tab 25 Mg PO DAILY Allergies: Coded Allergies: MRI PRECAUTION (Verified Allergy, Severe, ANEURSYM CLIPPING, 03/04/18) diatrizoate meglumine (Unverified Allergy, Severe, SHOCK, 03/04/18) gadobenic acid (Unverified Allergy, Severe, SHOCK, 03/04/18) gadodiamide (Unverified Allergy, Severe, SHOCK, 03/04/18) gadoteridol (Unverified Allergy, Severe, SHOCK, 03/04/18) iodine (Unverified Allergy, Severe, 03/04/18) iodixanol (Unverified Allergy, Severe, SHOCK, 03/04/18) iohexol (Unverified Allergy, Severe, SHOCK, 03/04/18) potassium iodide (Unverified Allergy, Severe, 03/04/18) povidone-iodine (Unverified Allergy, Severe, 03/04/18) sodium iodide (Unverified Allergy, Severe, 03/04/18) sodium iodide (Unverified Allergy, Severe, 03/04/18) Active Ordered Medications Inpatient Medications Labetalol HCl (Trandate Inj) 20 mg ONCE ONCE IV PUSH Last administered on 03/04at 11:23; Start 03/04/18 at 11:30; Stop 03/04/18 at 11:31; Status DC Sodium Chloride (NS Flush) 2 ml UNSCH PRN IV FLUSH FLUSH AFTER USING IV ACCESS ; Start 03/04/18 at 08:30 Vancomycin HCl 1000 mg/Sodium Chloride 250 ml @ 250 mls/hr ONCE ONCE IV Last administered on 03/04/18at 10:46; Start 03/04/18 at 10:45; Stop 03/04/18 at 11:44 ; Status DC Family History could not be obtained. Social History could not be obtained. Physical Exam Vital Signs Vital Signs Date Time Temp Pulse Resp B/P (MAP) Pulse Ox O2 Delivery O2 Flow Rate FiO2 03/04/18 11:57 81 16 137/61 (86) 100 Nasal Cannula 4.00 03/04/18 10:54 98.3 105 14 199/84 (122) 100 Nasal Cannula 4.00 03/04/18 10:30 86 12 141/67 (91) 100 Nasal Cannula 4.00 03/04/18 08:45 97 Nasal Cannula 2.00 03/04/18 08:45 97 Nasal Cannula 3.00 03/04/18 08:01 97 12 140/68 (92) 90 Physical Exam GENERAL:obese male, lethargic. SKIN: erythema over the right leg. HEAD: Atraumatic. Normocephalic. No temporal or scalp tenderness. EYES: Pupils equal round and reactive. Extraocular motions intact. No scleral icterus. No injection or drainage. ENT: Nose without bleeding, purulent drainage or septal hematoma. Throat without erythema, tonsillar hypertrophy or exudate. Uvula midline. Airway patent. NECK: Trachea midline. No JVD or lymphadenopathy. Supple, nontender, no meningeal signs. CARDIOVASCULAR: Regular rate and rhythm without murmurs, gallops, or rubs. RESPIRATORY: Clear to auscultation. Breath sounds equal bilaterally. No wheezes , rales, or rhonchi. GASTROINTESTINAL: Abdomen soft, non-tender, nondistended. No hepato-splenomegaly , or palpable masses. No guarding. MUSCULOSKELETAL: s/p left AKA- with lymphedema/ erythema of the right leg. NEUROLOGICAL: lethargic- arousbale to calling his name. Laboratory Laboratory Tests Test 03/04/18 08:16 03/04/18 08:26 03/04/18 09:10 03/04/18 10:35 Blood Gas Puncture Site RT RADIAL Blood Gas Patient Temperature 98.6 Blood Gas HCO3 31 Blood Gas Base Excess 6.0 Blood Gas Oxygen Saturation 93 Arterial Blood pH 7.39 Arterial Blood Partial Pressure CO2 52 Arterial Blood Partial Pressure O2 92 Arterial Blood Oxygen Content 13.8 Arterial Blood Carboxyhemoglobin 3.8 Arterial Blood Methemoglobin 0.6 Blood Gas Hemoglobin 10.5 Oxygen Delivery Device NASAL CANNULA Blood Gas Liter Flow 4 White Blood Count 13.3 Red Blood Count 4.42 Hemoglobin 10.5 Hematocrit 34.8 Mean Corpuscular Volume 78.7 Mean Corpuscular Hemoglobin 23.7 Mean Corpuscular Hemoglobin Concent 30.1 Red Cell Distribution Width 17.9 Platelet Count 292 Mean Platelet Volume 8.2 Neutrophils (%) (Auto) 76.3 Lymphocytes (%) (Auto) 14.1 Monocytes (%) (Auto) 7.4 Eosinophils (%) (Auto) 1.4 Basophils (%) (Auto) 0.8 Neutrophils # (Auto) 10.1 Lymphocytes # (Auto) 1.9 Monocytes # (Auto) 1.0 Eosinophils # (Auto) 0.2 Basophils # (Auto) 0.1 CBC Comment DIFF FINAL Differential Comment Blood Urea Nitrogen 9 Creatinine 0.98 Random Glucose 184 Total Protein 8.3 Albumin 2.7 Calcium Level 8.7 Alkaline Phosphatase 55 Aspartate Amino Transf (AST/SGOT) 15 Alanine Aminotransferase (ALT/SGPT) 12 Total Bilirubin 0.6 Sodium Level 135 Potassium Level 3.8 Chloride Level 99 Carbon Dioxide Level 29.6 Anion Gap 6 Estimat Glomerular Filtration Rate 77 Lactic Acid Level 1.1 Total Creatine Kinase 227 Thyroid Stimulating Hormone 3rd Gen 1.010 Ethyl Alcohol Level LESS THAN 3 Urine Color YELLOW Urine Turbidity HAZY Urine pH 7.0 Urine Specific [place] 1.004 Urine Protein NEG Urine Glucose (UA) NEG Urine Ketones NEG Urine Occult Blood NEG Urine Nitrite POS Urine Bilirubin NEG Urine Urobilinogen LESS THAN 2 Urine Leukocyte Esterase LARGE Urine RBC 1 Urine WBC 39 Urine Squamous Epithelial Cells 1 Urine Bacteria MANY Microscopic Urinalysis Comment CATH-CULTURE IND Urine Opiates Screen NEG Urine Barbiturates Screen NEG Urine Amphetamines Screen NEG Urine Benzodiazepines Screen NEG Urine Cocaine Screen NEG Urine Cannabinoids Screen NEG Prothrombin Time 11.9 Prothromb Time International Ratio 1.2 Date/Time Source Procedure Growth Status 03/04/18 08:26 Blood Peripheral Aerobic Blood Culture Pending Received 03/04/18 08:26 Blood Peripheral Anaerobic Blood Culture Pending Received 03/04/18 09:10 Urine Catheterized Urine Urine Culture Pending Received Result Diagram: 03/04/18 0803/04/18825 Caprini VTE Risk Assessment Caprini VTE Risk Assessment: Mod/High Risk (score >= 2) Caprini Risk Assessment Model Point Value = 1 Point Value = 2 Point Value = 3 Point Value = 5 Age 41-60 Minor surgery BMI > 25 kg/m2 Swollen legs Varicose veins or History of unexplained or recurrent spontaneous Oral contraceptives or hormone replacement Sepsis (< 1 month) Serious lung disease, including pneumonia (< 1 month) Abnormal pulmonary function Acute myocardial infarction Congestive heart failure (< 1 month) History of inflammatory bowel disease Medical patient at bed rest Age 61-74 Arthroscopic surgery Major open surgery (> 45 min) Laparoscopic surgery (> 45 min) Malignancy Confined to bed (> 72 hours) Immobilizing plaster cast Central venous access Age >= 75 History of VTE Family history of VTE Factor V Leiden Prothrombin [id number] Lupus anticoagulant Anticardiolipin antibodies Elevated serum homocysteine Heparin-induced thrombocytopenia Other congenital or acquired thrombophilia Stroke (< 1 month) Elective arthroplasty Hip, pelvis, or leg fracture Acute spinal cord injury (< 1 month) Prophylaxis Regimen Total Risk Factor Score Risk Level Prophylaxis Regimen 0-1 Low Early ambulation 2 Moderate Order ONE of the following: *Sequential Compression Device (SCD) *Heparin 5000 units SQ BID 3-4 Higher Order ONE of the following medications: *Heparin 5000 units SQ TID *Enoxaparin/Lovenox 40 mg SQ daily (WT < 150 kg, CrCl > 30 mL/min) *Enoxaparin/Lovenox 30 mg SQ daily (WT < 150 kg, CrCl > 10-29 mL/min) *Enoxaparin/Lovenox 30 mg SQ BID (WT < 150 kg, CrCl > 30 mL/min) AND/OR *Sequential Compression Device (SCD) 5 or more Highest Order ONE of the following medications: *Heparin 5000 units SQ TID (Preferred with Epidurals) *Enoxaparin/Lovenox 40 mg SQ daily (WT < 150 kg, CrCl > 30 mL/min) *Enoxaparin/Lovenox 30 mg SQ daily (WT < 150 kg, CrCl > 10-29 mL/min) *Enoxaparin/Lovenox 30 mg SQ BID (WT < 150 kg, CrCl > 30 mL/min) AND *Sequential Compression Device (SCD) Assessment and Plan Assessment and Plan A/P - acute encephalopathy- possibly due to a combination of UTI and hypercapnia CT head stable with no acute abnormality. continue with broad-spectrum IV antibiotic till cultures resulted- start on BiPaP and monitor the response. resume neb treatment. keep NPO for now due to altered mental status. -chronic respiratory failure/ COPD; resume Symbicort- will add neb treatment- BiPaP as needed. - Diabetes Mellitus; hold oral hypoglycemics- start on accu-check with SSI. -Chronic right leg lymphedema /cellulitis- antibiotics as noted above. consult wound care. -Recurrent DVTs; continue Coumadin- pharmacy consulted for coumadin dosing. -Hyperlipidemia; resume statin -Atrial fibrillation; on Coumadin and Cardizem- -history of CAD/ CVA/ chronic diastolic CHF; continue aspirin, coumadin and statin -hypertension; resume home meds- continue to monitor. -DVT prophylaxis; on Coumadin. Discussed Condition With ER physician. Physician Certification 2 Midnight Certification Type: Admission for Inpatient Services Order for Inpatient Services The services are ordered in accordance with Medicare regulations or non- Medicare payer requirements, as applicable. In the case of services not specified as inpatient-only, they are appropriately provided as inpatient services in accordance with the 2-midnight benchmark. Estimated LOS (days): 2 days is the estimated time the patient will need to remain in the hospital, assuming treatment plan goals are met and no additional complications. Post-Hospital Plan: Not yet determined Zachery Flores MD Mar 04, 2018 13:34
[2018-03-04] MEDS: SODIUM CHLOR 0.9% 1000 ML INJ 1,000 ML IV SCH (15:03)
[2018-03-04] MEDS: RESP: ALBUTEROL 2.5 MG/IPRATROPIUM 0.5 MG NEB (PRN) NEB (15:15)
[2018-03-04] MEDS: PIPERACIL-TAZO 3.375 GM PREMIX 50 ML IV SCH (15:34)
[2018-03-04] MEDS: WARFARIN SOD 5 MG TAB PO SCH (16:42)
[2018-03-04] MEDS: INSULIN ASPART SUPPLEMENTAL SCALE SQ SCH ×2 (17:00→19:36)
--- NOTE | 2018-03-04 17:07 | EKG ---
Date Performed: 03/04/2018 Time Performed: 08:17:01 PTAGE: 62 years EKG: SINUS TACHYCARDIA WITH FIRST DEGREE AV BLOCK NONSPECIFIC T-WAVE ABNORMALITY ABNORMAL ECG PREVIOUS TRACING : 12/26/2017 07.47 Since the previous tracing, no significant change noted DOCTOR: Jorge L Loera Interpretating Date/Time 03/04/2018 17:02:54
[2018-03-04] MEDS: PRIMIDONE 50 MG TAB PO SCH (18:08)
--- NOTE | 2018-03-04 18:22 | PD.WCN.NOT ---
Wound Consult Description: Consult for WOUND MANAGEMENT of right leg/foot per Dr Flores Communicated with: ARCHANA Paredes Patient Recommendation: Leave right leg open to air and slightly elevated with an ultrasorb under neath leg for absorption of weeping venous stasis ulcerations with lymphedema. Apply Lac-Hydrin Daily to surrounding weeping areas of flaking dry skin. Shaving cream therapy once/twice weekly. Additional Information: Patient seen on [facility] for right leg wounds. Patient was sleeping upon arrival to room. Right lower extremity is visualized with yellow dried exudate with surrounding dark discoloration (hemosiderin staining) with slight erythema that is warm to touch. There is no active drainage noted. Left leg is not present. Shaving cream therapy completed on right lower extremity x2 in attempt to remove dried yellow exudate with patient sleeping. Patient noted with diffuse , scant, serous weeping to anterior/lateral lower right extremity once cleansed and pat dry. Mild odor noted after cleansing without active drainage. Right leg was left open to air for assessment. Small diffuse localized weeping areas visualized, too many to count covering an area of ~17cm x 13cm x <0.1cm. Patient woke at the end of the second shaving cream therapy and stated that he uses a cream at home for the scaling dry areas, however does not recall the name of the product. Patient stated that he cannot tolerate wraps/dressings. Recommend to elevate right lower extremity and apply Lac Hydrin daily to the periwounds with an ultrasorb placed under leg for absorption of weeping. Patient has chronic venous stasis with hemosiderin staining present and complains of pain from just below knees to toes with the exception of the heel. Patient does not tolerate elevation of leg and requests radio script writer to leave it alone and states he will elevate it with his bed controls after he receives pain medication. Rachel Kerns [facility] Mar 04, 2018 18:22
[2018-03-04] MEDS: PRAVASTATIN SOD 20 MG TAB PO SCH (21:27)
[2018-03-04] MEDS: ACETAMINOPHEN/HYDROcodone 325 MG/5 MG TAB PO PRN (21:27)
[2018-03-04] MEDS: BUDESONIDE-FORMOTEROL 160/4.5 MCG INHALER INH SCH (21:27)
[2018-03-04] MEDS: VANCOMYCIN 1,500 MG/NS 500 ML IV SCH ×2 (21:56)
[2018-03-05] VITALS (15 sets, daily range): BP systolic 109–189; BP diastolic 58–81; PULSE 69–92; RESP 9–22; TEMP 97.1–98.3; O2SAT 96–100
[2018-03-05] MEDS: PIPERACIL-TAZO 3.375 GM PREMIX 50 ML IV SCH ×3 (00:33→17:04)
[2018-03-05] MEDS: ACETAMINOPHEN/HYDROcodone 325 MG/5 MG TAB PO PRN (01:00)
[2018-03-05] MEDS: HYDROmorphone HCL PF 2 MG/ML VIAL IV PRN ×3 (02:57→20:49)
[2018-03-05] MEDS: SODIUM CHLOR 0.9% 1000 ML INJ 1,000 ML IV SCH (04:38)
[2018-03-05 05:18] LABS: AUTOMATED NEUTROPHIL # 8.8 TH/MM3 (1.8-7.7); BASOPHIL # 0.1 TH/MM3 (0-0.2); BASOPHIL % 1.2 % (0.0-2.0); EOSINOPHIL # 0.2 TH/MM3 (0-0.4); EOSINOPHIL % 1.9 % (0.0-4.0); LYMPH % 18.6 % (9.0-44.0); LYMPHOCYTE # 2.3 TH/MM3 (1.0-4.8); MEAN CELL VOLUME 78.9 FL (80.0-100.0); MEAN CORPUSCULAR HEMOGLOBIN 23.6 PG (27.0-34.0); MEAN PLATELET VOLUME 8.2 FL (7.0-11.0); MONO % 6.1 % (0.0-8.0); MONOCYTE # 0.7 TH/MM3 (0-0.9); NEUT % 72.2 % (16.0-70.0); PLATELET COUNT 268 TH/MM3 (150-450); RED BLOOD COUNT 3.81 MIL/MM3 (4.50-5.90); WHITE BLOOD COUNT 12.2 TH/MM3 (4.0-11.0)
[2018-03-05 05:24] LABS: MEAN CORPUSCULAR HGB CONC 29.9 % (32.0-36.0)
[2018-03-05] MEDS: RESP: ALBUTEROL 2.5 MG/IPRATROPIUM 0.5 MG NEB (PRN) NEB (05:50)
--- NOTE | 2018-03-05 07:55 | HHI.PR ---
Subjective Remarks in no acute distress. more alert today although still not oriented to place or time. denies pain. no fever. d/w the RN. Objective Vitals Vital Signs Date Time Temp Pulse Resp B/P (MAP) Pulse Ox O2 Delivery O2 Flow Rate FiO2 03/05/18 06:00 78 03/05/18 05:50 96 Nasal Cannula 2.00 03/05/18 04:00 70 03/05/18 04:00 97.1 70 9 109/58 (75) 100 03/05/18 02:00 75 03/05/18 00:00 69 03/05/18 00:00 97.6 69 11 130/63 (85) 100 03/04/18 22:00 78 03/04/18 21:44 99 Nasal Cannula 4.00 03/04/18 20:00 98.4 72 12 132/64 (86) 100 03/04/18 20:00 72 03/04/18 18:00 80 14 136/65 (88) 96 03/04/18 18:00 80 03/04/18 17:00 76 11 131/60 (83) 96 03/04/18 16:00 83 03/04/18 16:00 98.1 83 13 136/71 (92) 100 03/04/18 15:16 98 Nasal Cannula 2.00 03/04/18 15:14 03/04/18 14:35 76 16 147/79 (101) 100 BiPAP 03/04/18 13:53 96 40 03/04/18 11:57 81 16 137/61 (86) 100 Nasal Cannula 4.00 03/04/18 10:54 98.3 105 14 199/84 (122) 100 Nasal Cannula 4.00 03/04/18 10:30 86 12 141/67 (91) 100 Nasal Cannula 4.00 03/04/18 08:45 97 Nasal Cannula 2.00 03/04/18 08:45 97 Nasal Cannula 3.00 03/04/18 08:01 97 12 140/68 (92) 90 I/O 03/04/18 03/04/18 03/04/18 03/05/18 03/05/18 03/05/18 07:00 15:00 23:00 07:00 15:00 23:00 Intake Total 250 ml 266 ml 1763 ml Output Total 750 ml 375 ml Balance 250 ml -484 ml 1388 ml Intake IV Total 250 ml 266 ml 1763 ml Output Urine Total 750 ml 375 ml # Bowel Movements 0 Result Diagram: 03/05/18 0441 03/04/18 08 Imaging Last Impressions Head CT 03/04/18 0816 Signed Impressions: CONCLUSION: 1. Stable CT scan of the brain compared to the prior examination. 2. No focal or acute intracranial hemorrhage. Chest X-Ray 03/04/18815 Signed Impressions: CONCLUSION: Under inflation with mild bibasilar opacity which could represent atelectasis o r mild consolidation. Atelectasis is favored given the appearance. Objective Remarks GENERAL: in no apparent distress. CARDIOVASCULAR: Regular rate and regular rhythm without murmurs, gallops, or rubs. RESPIRATORY: Clear to auscultation. Breath sounds equal bilaterally. No wheezes , rales, or rhonchi. GASTROINTESTINAL: Abdomen soft, non-tender, nondistended. Normal, active bowel sounds MUSCULOSKELETAL:s/p left AKA with lymphedema of the right leg. NEURO: awake and more alert today- although still not oriented to place or time. A/P Problem List: (1) Acute encephalopathy ICD Code: G93.40 - Encephalopathy, unspecified Assessment and Plan - acute encephalopathy- more alert today but still not oriented to place or time. CT head stable with no acute abnormality. continue with broad-spectrum IV antibiotic till cultures resulted- refused BiPaP. resumed neb treatment. consult neurology. -chronic respiratory failure/ COPD; resumed Symbicort- continue neb treatment- - Diabetes Mellitus; hold oral hypoglycemics- start on accu-check with SSI. -Chronic right leg lymphedema /cellulitis- antibiotics as noted above. consulted wound care. -Recurrent DVTs; continue Coumadin- pharmacy consulted for coumadin dosing. -Hyperlipidemia; resumed statin -Atrial fibrillation; on Coumadin and Cardizem- INR today pending. -history of CAD/ CVA/ chronic diastolic CHF; continue aspirin, coumadin and statin -hypertension; resumed home meds- continue to monitor. -DVT prophylaxis; on Coumadin. transfer to telemetry within the next 24 hrs if stable. Zachery Flores MD Mar 05, 2018 07:55
[2018-03-05] MEDS: INSULIN ASPART SUPPLEMENTAL SCALE SQ SCH ×4 (08:00→21:11)
[2018-03-05] MEDS: VANCOMYCIN 1,500 MG/NS 500 ML IV SCH ×4 (08:00→22:10)
[2018-03-05] MEDS: PRIMIDONE 50 MG TAB PO SCH ×3 (08:23→17:05)
[2018-03-05] MEDS: PREGABALIN 100 MG CAP PO SCH ×2 (08:23→20:48)
[2018-03-05] MEDS: ASPIRIN 81 MG CHEW TAB CHEW SCH (08:23)
[2018-03-05] MEDS: PANTOPRAZOLE SOD 20 MG DELAYED RELEASE TAB PO SCH (08:23)
[2018-03-05] MEDS: DILTIAZEM-CD 240 MG CAP ER PO SCH (08:23)
[2018-03-05] MEDS: LISINOPRIL 10 MG TAB PO SCH (08:23)
[2018-03-05] MEDS: BUDESONIDE-FORMOTEROL 160/4.5 MCG INHALER INH SCH ×3 (08:24→20:48)
[2018-03-05] MEDS ORDERED: [UNRECOGNIZED DRUG - OTHER] INH SCH (09:00)
[2018-03-05] MEDS ORDERED: SYMBICORT INH SCH (09:00)
--- NOTE | 2018-03-05 10:10 | RADRPT ---
EXAM DATE: 03/05/2018 10:05 AM EDT AGE/SEX: 62 years / Male INDICATIONS: Right leg swelling. CLINICAL DATA: This is the patient's subsequent encounter. Patient reports that signs and symptoms h ave been present for 1 day and indicates a pain score of 7/10. MEDICAL/SURGICAL HISTORY: Congestive heart failure. Hypercholesterolemia. Hypertension. Glas ses.Brain aneurysm.TIA.Seizures. Myocardial infarction.Cardiomyopathy. Coronary artery disease.Periph eral vascular disease.Anticoagulant therapy.Atrial fibrillation.COPD.Deep vein thrombosis. Sleep apne a. Dyspnea.Arthritis.Diabetes. Tonsillectomy. Appendectomy. Brain surgery. Cardiac catheterization. Back surgery. COMPARISON: [facility] [place], LEG RIGHT VENOUS DOPPLER, 05/12/2016. . TECHNIQUE: Venous ultrasound of both lower extremities was performed from the inguinal ligament to t he proximal calf. Real-time, color Doppler and spectral tracing, compression and augmentation techni ques were used. FINDINGS: There is normal compressibility of the deep venous system from the inguinal region to the p roximal calf. No echogenic clot is seen in the lumen of the common femoral, femoral, popliteal, and posterior tibial veins. There is a normal response of the venous system to proximal and distal augme ntation and respiration. Incidental note of multiple enlarged inguinal nodes measuring up to 2.9 cm . CONCLUSION: 1. No sonographic evidence for right lower extremity DVT. 2. Nonspecific right inguinal adenopathy. Electronically signed by: Benja Steele MD 03/05/2018 10:08 AM EDT
--- NOTE | 2018-03-05 11:27 | PD.CONS ---
History of Present Illness Service Neurology Consult Requested By Dr. Flores Reason for Consult Altered Mental Status Primary Care Physician Unknown History of Present Illness 62 y/o male presented to ER with altered mental status. Was apparently found near his bed. He has difficulty giving history due to altered mental status. History also obtained from the chart. He denies any problems with memory baseline. He lives at home with his . Has hx of DM, CVA, TIA, A-fib, COPD , cerebral aneurysm with clipping. Unknown if any hz of seizure (Ashely Jose) Review of Systems Constitutional: Negative except HPI Eye: Negative Except HPI ENMT: Negative except HPI Respiratory: Negative except HPI Cardiovascular: Negative except HPI Gastrointestinal: Negative except HPI Ba/Lymph: Negative except HPI Musculoskeletal: Negative except HPI Neurologic: Negative except HPI, Confusion Psychiatric: Negative except HPI All other ROS: Unable to obtain (Ashely Jose) Past Family Social History Allergies: Coded Allergies: MRI PRECAUTION (Verified Allergy, Severe, ANEURSYM CLIPPING, 03/04/18) diatrizoate meglumine (Unverified Allergy, Severe, SHOCK, 03/04/18) gadobenic acid (Unverified Allergy, Severe, SHOCK, 03/04/18) gadodiamide (Unverified Allergy, Severe, SHOCK, 03/04/18) gadoteridol (Unverified Allergy, Severe, SHOCK, 03/04/18) iodine (Unverified Allergy, Severe, 03/04/18) iodixanol (Unverified Allergy, Severe, SHOCK, 03/04/18) iohexol (Unverified Allergy, Severe, SHOCK, 03/04/18) potassium iodide (Unverified Allergy, Severe, 03/04/18) povidone-iodine (Unverified Allergy, Severe, 03/04/18) sodium iodide (Unverified Allergy, Severe, 03/04/18) sodium iodide (Unverified Allergy, Severe, 03/04/18) Past Medical History Per the chart: Diabetes Mellitus Chronic right leg lymphedema Recurrent cellulitis Recurrent DVTs Hyperlipidemia Atrial fibrillation Cardiomyopathy Congestive heart failure Coronary artery disease Multiple CVAs and TIAs Endocarditis Hypertension COPD Migraines Essential tremors Osteoarthritis Degenerative disc disease Past Surgical History per the chart Right subclavian port placement Left leg amputation Brain surgery with aneurysm clipping Fibrous tumor removed from back Knee surgery Elbow surgery Tonsillectomy Appendectomy Active Ordered Medications Current Medications Medications (Trade) Dose Ordered Sig/Carrie Route Start Time Stop Time Status Last Admin (NS Flush) 2 ml UNSCH PRN IV FLUSH 03/04/18 08:30 (D50w (Vial) Inj) 50 ml UNSCH PRN IV PUSH 03/04/18 13:30 (Glucagon Inj) 1 mg UNSCH PRN OTHER 03/04/18 13:30 (NovoLOG SUPPLEMENTAL SCALE) 1 ACHS SLIDING SCALE SQ 03/04/18 17:00 03/05/18 08:00 Pharmacy Profile Note 0 ml @ 0 mls/hr UNSCH OTHER 03/04/18 13:30 Piperacillin Sod/ Tazobactam Sod 50 ml @ 100 mls/hr Q8H IV 03/04/18 16:00 03/05/18 08:22 (Aspirin Chew) 81 mg DAILY CHEW 03/05/18 09:00 03/05/18 08:23 (Cardizem Cd) 240 mg DAILY PO 03/05/18 09:00 03/05/18 08:23 (Prinivil) 10 mg DAILY PO 03/05/18 09:00 03/05/18 08:23 (Protonix) 20 mg DAILY PO 03/05/18 09:00 03/05/18 08:23 (Pravachol) 20 mg HS PO 03/04/18 21:00 03/04/18 21:27 (Lyrica) 100 mg Q12HR PO 03/05/18 09:00 03/05/18 08:23 (Mysoline) 50 mg TID PO 03/04/18 18:00 03/05/18 08:23 (Coumadin) 5 mg DAILY@1600 PO 03/04/18 16:00 03/04/18 16:42 (Duoneb Neb) 1 ampule Q2HR NEB PRN NEB 03/04/18 15:00 03/05/18 05:50 Sodium Chloride 1,000 ml @ 70 mls/hr [id number] IV 03/04/18 15:00 Future Hold 03/05/18 04:38 Pharmacy Profile Note 0 ml @ 0 mls/hr UNSCH OTHER 03/04/18 13:30 (Symbicort 160-4.5 Mcg Inh) 2 puff BID INH 03/04/18 21:00 03/05/18 08:27 Vancomycin HCl 1500 mg/Sodium Chloride 515 ml @ 257.5 mls/ hr Q12H IV 03/04/18 20:00 03/05/18 08:00 ([facility] Ordered Lab Info) SPECIFIC LAB TO BE ... ONCE ONCE .XX 03/05/18 19:45 03/05/18 19:46 ([place] 5-325 Mg) 1 tab Q4H PRN PO 03/04/18 21:30 03/05/18 01:00 (Dilaudid Pf Inj) 0.5 mg Q4H PRN IV 03/05/18 03:00 03/05/18 10:02 Family History unable to obtain Social History unable to obtain (Ashely Jose) Exam I&O / VS Vital Signs Date Time Temp Pulse Resp B/P (MAP) Pulse Ox O2 Delivery O2 Flow Rate FiO2 03/05/18 09:23 20 03/05/18 08:31 98 Nasal Cannula 2.00 03/05/18 06:00 78 03/05/18 05:50 96 Nasal Cannula 2.00 03/05/18 04:00 70 03/05/18 04:00 97.1 70 9 109/58 (75) 100 03/05/18 02:00 75 03/05/18 00:00 69 03/05/18 00:00 97.6 69 11 130/63 (85) 100 03/04/18 22:00 78 03/04/18 21:44 99 Nasal Cannula 4.00 03/04/18 20:00 98.4 72 12 132/64 (86) 100 03/04/18 20:00 72 03/04/18 18:00 80 14 136/65 (88) 96 03/04/18 18:00 80 03/04/18 17:00 76 11 131/60 (83) 96 03/04/18 16:00 83 03/04/18 16:00 98.1 83 13 136/71 (92) 100 03/04/18 15:16 98 Nasal Cannula 2.00 03/04/18 15:14 03/04/18 14:35 76 16 147/79 (101) 100 BiPAP 03/04/18 13:53 96 40 03/04/18 11:57 81 16 137/61 (86) 100 Nasal Cannula 4.00 General: No acute distress Eye: PERRL Respiratory: Non-labored respirations Cardiology: Regular Rhythm, Irregular Rhythm Neurologic: No focal defects Exam Comments alert to self and place, not to time DATE: 51, knows his , knows current president, he has difficulty following simple commands, EOM grossly intact, PERRL, no facial asymmetry, l bka, right lower extremity edema, no drift, moving upper extremities against gravity, mild tremor with f-n-f, sensory testing unreliable, tone normal, gait withheld (Ashely Jose) Review/Management Diagnosis/Plan: (1) Acute encephalopathy ICD Codes: G93.40 - Encephalopathy, unspecified Plan: CT unremarkable unsure if aneurysm clips are MRI compatible EEG pending labs for causes of memory loss UA +, culture pending blood culture pending on abx for cellulitis (2) Cellulitis of right leg ICD Codes: L03.115 - Cellulitis of right lower limb Status: Acute (3) Altered mental status ICD Codes: R41.82 - Altered mental status, unspecified Status: Acute (4) COPD (chronic obstructive pulmonary disease) ICD Codes: J44.9 - COPD (chronic obstructive pulmonary disease) Status: Chronic (5) Hypertension ICD Codes: I10 - Hypertension Status: Chronic (6) Atrial fibrillation ICD Codes: I48.91 - Atrial fibrillation Status: Chronic Plan: on Coumadin (Ashely Jose) Daily Summary MD note pt seen examined agree with PA labs pending eeg abx for per primary team (Fiona Randle MD) Problem Qualifiers (1) Altered mental status: Qualified Codes: R41.82 - Altered mental status, unspecified (2) COPD (chronic obstructive pulmonary disease): Qualified Codes: J44.9 - Chronic obstructive pulmonary disease, unspecified (3) Atrial fibrillation: Qualified Codes: I48.2 - Chronic atrial fibrillation Ashely Jose Mar 05, 2018 11:27 Fiona Randle MD Mar 05, 2018 14:12
[2018-03-05] MEDS: WARFARIN SOD 5 MG TAB PO SCH (17:04)
--- NOTE | 2018-03-05 17:35 | MG ---
cc: Daniel Lugo MD, PhD DATE OF STUDY: TEST NUMBER: [id number]. TECHNIQUE: A 17-channel EEG. DESCRIPTION: Background rhythm is generally slow in the delta frequency of 3-4 Hz. Amplitude is 20-40 microvolts. There are no lateralizing features identified. No epileptiform features are identified. Photic results in a poor driving response. INTERPRETATION: Abnormal study consistent with encephalopathy. Daniel Lugo MD, PhD MOR/JORDY , 04:33 PM , 04:40 PM
[2018-03-05] MEDS ORDERED: PHARMACY ORDERED LAB ONE (19:45)
[2018-03-05] MEDS: PRAVASTATIN SOD 20 MG TAB PO SCH (20:48)
[2018-03-05 22:32] LABS: FOLATE 18.4 NG/ML (3.1-17.5); VANCOMYCIN TROUGH 19.2 MCG/ML (5.0-10.0)
[2018-03-06] VITALS (14 sets, daily range): BP systolic 134–172; BP diastolic 62–86; PULSE 67–92; RESP 11–23; TEMP 97.4–98.3; O2SAT 92–98
[2018-03-06] MEDS ORDERED: ONDANSETRON ODT 4 MG TAB SL PRN (00:15)
[2018-03-06] MEDS ORDERED: HYDROmorphone HCL PF 2 MG/ML VIAL IV PUSH ONE (00:15)
[2018-03-06] MEDS: PIPERACIL-TAZO 3.375 GM PREMIX 50 ML IV SCH ×3 (00:40→14:55)
[2018-03-06] MEDS: HYDROmorphone HCL PF 2 MG/ML VIAL IV PRN ×4 (00:41→19:25)
[2018-03-06 03:48] LABS: INTERNATIONAL NORMALIZED RATIO 1.7 RATIO; PROTHROMBIN TIME - PATIENT 17.2 SEC (9.8-11.6)
--- NOTE | 2018-03-06 07:58 | HHI.PR ---
Subjective Remarks in no acute distress. is more alert today. has some pain to the right leg. no fever. d/w the RN and no acute issues over night. Objective Vitals Vital Signs Date Time Temp Pulse Resp B/P (MAP) Pulse Ox O2 Delivery O2 Flow Rate FiO2 03/06/18 06:00 76 03/06/18 04:00 97.4 74 11 168/76 (106) 98 03/06/18 04:00 74 03/06/18 02:00 82 03/06/18 00:00 74 03/06/18 00:00 97.5 74 18 154/71 (98) 98 03/05/18 22:00 71 03/05/18 20:58 97 Nasal Cannula 2.00 03/05/18 20:00 73 03/05/18 20:00 98.1 73 15 142/67 (92) 98 03/05/18 18:00 72 03/05/18 16:00 69 03/05/18 16:00 98.1 69 22 129/60 (83) 99 03/05/18 14:00 71 03/05/18 12:00 98.3 71 20 127/59 (81) 97 03/05/18 12:00 92 03/05/18 10:32 20 03/05/18 10:00 92 03/05/18 09:23 20 03/05/18 08:31 98 Nasal Cannula 2.00 03/05/18 08:00 82 03/05/18 08:00 98.0 82 18 189/81 (117) 96 I/O 03/05/18 03/05/18 03/05/18 03/06/18 03/06/18 03/06/18 07:00 15:00 23:00 07:00 15:00 23:00 Intake Total 1763 ml 565 ml 690 ml 616 ml Output Total 375 ml 800 ml 650 ml Balance 1388 ml 565 ml -110 ml -34 ml Intake Oral 640 ml IV Total 1763 ml 565 ml 50 ml 616 ml Output Urine Total 375 ml 800 ml 650 ml # Bowel Movements 0 0 Result Diagram: 03/05/18 0441 03/04/18 0826 Imaging Last Impressions Lower Extremity Ultrasound 03/05/18 0000 Signed Impressions: CONCLUSION: 1. No sonographic evidence for right lower extremity DVT. 2. Nonspecific right inguinal adenopathy. Head CT 03/04/18815 Signed Impressions: CONCLUSION: 1. Stable CT scan of the brain compared to the prior examination. 2. No focal or acute intracranial hemorrhage. Chest X-Ray 03/04/18815 Signed Impressions: CONCLUSION: Under inflation with mild bibasilar opacity which could represent atelectasis o r mild consolidation. Atelectasis is favored given the appearance. Objective Remarks GENERAL: in no apparent distress. CARDIOVASCULAR: Regular rate and regular rhythm without murmurs, gallops, or rubs. RESPIRATORY: Clear to auscultation. Breath sounds equal bilaterally. No wheezes , rales, or rhonchi. GASTROINTESTINAL: Abdomen soft, non-tender, nondistended. Normal, active bowel sounds MUSCULOSKELETAL:s/p left AKA with lymphedema of the right leg. NEURO: awake and more alert today- although still not oriented to place or time. Medications and IVs Inpatient Medications Acetaminophen/ Hydrocodone Bitart ([place] 5-325 Mg) 1 tab Q4H PRN PO pain>5 Last administered on 03/05/18at 01:00; Start 03/04/18 at 21:30 Albuterol/ Ipratropium (Duoneb Neb) 1 ampule Q2HR NEB PRN NEB SHORTNESS OF BREATH Last administered on 03/05/18at 05:50; Start 03/04/18 at 15:00 Aspirin (Aspirin Chew) 81 mg DAILY CHEW Last administered on 03/05/18at 08:23; Start 03/05/18 at 09:00 Budesonide/ Formoterol Fumarate (Symbicort 160-4.5 Mcg Inh) 2 puff BID INH Last administered on 03/05/18at 20:48; Start 03/04/18 at 21:00 Dextrose (D50w (Vial) Inj) 50 ml UNSCH PRN IV PUSH HYPOGLYCEMIA-SEE COMMENTS; Start 03/04/18 at 13:30 Diltiazem HCl (Cardizem Cd) 240 mg DAILY PO Last administered on 03/05/18at 08: 23; Start 03/05/18 at 09:00 Glucagon (Glucagon Inj) 1 mg UNSCH PRN OTHER HYPOGLYCEMIA-SEE COMMENTS; Start 03/04/18 at 13:30 Hydromorphone HCl (Dilaudid Pf Inj) 0.5 mg ONCE ONCE IV PUSH Last administered on 03/06/18 03:01; Start 03/06/18 at 00:15; Stop 03/06/18 at 00:16 ; Status DC Insulin Aspart (NovoLOG SUPPLEMENTAL SCALE) 1 ACHS SLIDING SCALE SQ Last administered on 03/05/18at 21:11; Start 03/04/18 at 17:00 Labetalol HCl (Trandate Inj) 20 mg ONCE ONCE IV PUSH Last administered on 03/04at 11:23; Start 03/04/18 at 11:30; Stop 03/04/18 at 11:31; Status DC Lisinopril (Prinivil) 10 mg DAILY PO Last administered on 03/05/18 08:23; Start 03/05/18 at 09:00 Miscellaneous Information ([facility] Ordered Lab Info) SPECIFIC LAB TO BE ... ONCE ONCE .XX Last administered on 03/05/18at 20:48; Start 03/05/18 at 19:45; Stop 03/05/18 at 19:46; Status DC Ondansetron HCl (Zofran Odt) 4 mg Q6H PRN SL nausea Last administered on at 00:41; Start 03/06/18 at 00:15 Pantoprazole Sodium (Protonix) 20 mg DAILY PO Last administered on 03/05/18at 08 :23; Start 03/05/18 at 09:00 Patient Medication Teaching (Coumadin Booklet) 1 ONCE ONCE OTHER Last administered on 03/04/18at 16:43; Start 03/04/18 at 15:00; Stop 03/04/18 at 15:01 ; Status DC Pharmacy Profile Note 0 ml @ 0 mls/hr UNSCH OTHER ; Start 03/04/18 at 13:30 Piperacillin Sod/ Tazobactam Sod 50 ml @ 100 mls/hr Q8H IV Last administered on 03/06/18at 00:40; Start 03/04/18 at 16:00 Pravastatin Sodium (Pravachol) 20 mg HS PO Last administered on 03/05/18at 20:48 ; Start 03/04/18 at 21:00 Pregabalin (Lyrica) 100 mg Q12HR PO Last administered on 03/05/18at 20:48; Start 03/05/18 at 09:00 Primidone (Mysoline) 50 mg TID PO Last administered on 03/05/18 17:05; Start 03/04/18 at 18:00 Sodium Chloride 1,000 ml @ 70 mls/hr [id number] IV Last administered on at 04:38; Start 03/04/18 at 15:00; Status Future Hold Sodium Chloride (NS Flush) 2 ml UNSCH PRN IV FLUSH FLUSH AFTER USING IV ACCESS ; Start 03/04/18 at 08:30 Vancomycin HCl 1000 mg/Sodium Chloride 250 ml @ 250 mls/hr ONCE ONCE IV Last administered on 03/04/18at 10:46; Start 03/04/18 at 10:45; Stop 03/04/18 at 11:44 ; Status DC Vancomycin HCl 1500 mg/Sodium Chloride 515 ml @ 257.5 mls/ hr Q12H IV Last administered on 03/05/18 22:10; Start 03/04/18 at 20:00 Warfarin Sodium (Coumadin) 5 mg DAILY@1600 PO Last administered on 03/05/18at 17 :04; Start 03/04/18 at 16:00 A/P Problem List: (1) Acute encephalopathy ICD Code: G93.40 - Encephalopathy, unspecified Assessment and Plan A/P - acute encephalopathy- improving. CT head stable with no acute abnormality. EEG with encephalopathy. neurology consult appreciated. -Chronic right leg lymphedema /cellulitis- continue IV antibiotics - consulted wound care. one bottle of blood cultures positive for staph coag negative; likely contamination. -chronic respiratory failure/ COPD; resumed Symbicort- continue neb treatment- - Diabetes Mellitus; hold oral hypoglycemics- start on accu-check with SSI. -UTI with gram negative Devan- continue antibiotics; will deescalate the antibiotic regimen when the culture is finalized. -Recurrent DVTs; continue Coumadin- INR trending up- pharmacy consulted for coumadin dosing. -Hyperlipidemia; resumed statin -Atrial fibrillation; on Coumadin and Cardizem- -history of CAD/ CVA/ chronic diastolic CHF; continue aspirin, coumadin and statin -hypertension; resumed home meds- continue to monitor. -DVT prophylaxis; on Coumadin. transfer to floor. consult PT. Zachery Flores MD Mar 06, 2018 07:58
[2018-03-06] MEDS ORDERED: ENALAPRILAT 1.25 MG/ML VIAL IV PUSH PRN (08:00)
[2018-03-06] MEDS: INSULIN ASPART SUPPLEMENTAL SCALE SQ SCH ×4 (08:00→21:23)
[2018-03-06] MEDS: PANTOPRAZOLE SOD 20 MG DELAYED RELEASE TAB PO SCH (08:15)
[2018-03-06] MEDS: DILTIAZEM-CD 240 MG CAP ER PO SCH (08:15)
[2018-03-06] MEDS: PREGABALIN 100 MG CAP PO SCH ×2 (08:15→21:23)
[2018-03-06] MEDS: VANCOMYCIN 1,500 MG/NS 500 ML IV SCH ×2 (08:15)
[2018-03-06] MEDS: ASPIRIN 81 MG CHEW TAB CHEW SCH (08:16)
[2018-03-06] MEDS: LISINOPRIL 10 MG TAB PO SCH (08:16)
[2018-03-06] MEDS: PRIMIDONE 50 MG TAB PO SCH ×3 (08:16→18:00)
[2018-03-06] MEDS: BUDESONIDE-FORMOTEROL 160/4.5 MCG INHALER INH SCH ×2 (08:17→21:22)
[2018-03-06] MEDS: WARFARIN SOD 4 MG TAB PO SCH (14:55)
[2018-03-06] MEDS: VANCOMYCIN INJ 1,250 MG in SODIUM CHLOR 0.9% 250 ML INJ 250 ML IV SCH (19:24)
[2018-03-06] MEDS: PRAVASTATIN SOD 20 MG TAB PO SCH (21:23)
[2018-03-07] VITALS (16 sets, daily range): BP systolic 124–195; BP diastolic 58–80; PULSE 72–88; RESP 9–20; TEMP 97.8–98.3; O2SAT 88–100
[2018-03-07] MEDS: PIPERACIL-TAZO 3.375 GM PREMIX 50 ML IV SCH ×3 (00:35→16:00)
[2018-03-07] MEDS: HYDROmorphone HCL PF 2 MG/ML VIAL IV PRN ×4 (00:55→20:33)
[2018-03-07 05:53] LABS: INTERNATIONAL NORMALIZED RATIO 2.5 RATIO; PROTHROMBIN TIME - PATIENT 25.2 SEC (9.8-11.6)
[2018-03-07] MEDS: INSULIN ASPART SUPPLEMENTAL SCALE SQ SCH ×4 (08:00→20:28)
--- NOTE | 2018-03-07 08:15 | HHI.PR ---
Subjective Remarks f/u; acute encephalopathy currently he's very lethargic- opens the eyes to calling his name. O2 sat dropped to 70's earlier this morning and now on six liters of oxygen via oxygen mask. remains afebrile. d/w the RN. Objective Vitals Vital Signs Date Time Temp Pulse Resp B/P (MAP) Pulse Ox O2 Delivery O2 Flow Rate FiO2 03/07/18 06:00 87 03/07/18 05:39 14 03/07/18 04:00 84 03/07/18 04:00 97.8 84 15 195/80 (118) 92 03/07/18 02:00 77 03/07/18 00:00 98.0 72 13 144/65 (91) 98 03/07/18 00:00 72 03/06/18 22:00 67 03/06/18 20:10 94 Nasal Cannula 3.00 03/06/18 20:00 67 03/06/18 20:00 97.8 67 23 145/67 (93) 96 03/06/18 18:00 72 03/06/18 16:00 98.3 74 16 134/62 (86) 92 03/06/18 16:00 74 03/06/18 14:00 75 03/06/18 12:00 98.0 78 18 141/65 (90) 97 03/06/18 12:00 78 03/06/18 10:00 92 03/06/18 09:00 94 Nasal Cannula 2.00 I/O 03/06/18 03/06/18 03/06/18 03/07/18 03/07/18 03/07/18 07:00 15:00 23:00 07:00 15:00 23:00 Intake Total 616 ml 350 ml 240 ml Output Total 650 ml 650 ml 525 ml Balance -34 ml -300 ml -285 ml Intake Oral 350 ml 240 ml IV Total 616 ml Output Urine Total 650 ml 650 ml 525 ml # Bowel Movements 0 0 0 Result Diagram: 03/05/18 0441 03/04/18 0826 Imaging Last Impressions Lower Extremity Ultrasound 03/05/18 0000 Signed Impressions: CONCLUSION: 1. No sonographic evidence for right lower extremity DVT. 2. Nonspecific right inguinal adenopathy. Head CT 03/04/18 0816 Signed Impressions: CONCLUSION: 1. Stable CT scan of the brain compared to the prior examination. 2. No focal or acute intracranial hemorrhage. Chest X-Ray 03/04/18 0816 Signed Impressions: CONCLUSION: Under inflation with mild bibasilar opacity which could represent atelectasis o r mild consolidation. Atelectasis is favored given the appearance. Objective Remarks GENERAL: in no apparent distress. CARDIOVASCULAR: Regular rate and regular rhythm without murmurs, gallops, or rubs. RESPIRATORY: Clear to auscultation. Breath sounds equal bilaterally. No wheezes , rales, or rhonchi. GASTROINTESTINAL: Abdomen soft, non-tender, nondistended. Normal, active bowel sounds MUSCULOSKELETAL:s/p left AKA with lymphedema of the right leg. NEURO: is lethargic- opens the eyes to calling his name. Medications and IVs Inpatient Medications Acetaminophen/ Hydrocodone Bitart ([place] 5-325 Mg) 1 tab Q4H PRN PO pain>5 Last administered on 03/05/18at 01:00; Start 03/04/18 at 21:30 Albuterol/ Ipratropium (Duoneb Neb) 1 ampule Q2HR NEB PRN NEB SHORTNESS OF BREATH Last administered on 03/05/18at 05:50; Start 03/04/18 at 15:00 Aspirin (Aspirin Chew) 81 mg DAILY CHEW Last administered on 03/06/18at 08:16; Start 03/05/18 at 09:00 Budesonide/ Formoterol Fumarate (Symbicort 160-4.5 Mcg Inh) 2 puff BID INH Last administered on 03/06/18at 21:22; Start 03/04/18 at 21:00 Dextrose (D50w (Vial) Inj) 50 ml UNSCH PRN IV PUSH HYPOGLYCEMIA-SEE COMMENTS; Start 03/04/18 at 13:30 Diltiazem HCl (Cardizem Cd) 240 mg DAILY PO Last administered on 03/06/18at 08: 15; Start 03/05/18 at 09:00 Enalaprilat (Vasotec Inj) 1.25 mg Q8H PRN IV PUSH SBP> OR = 180, DBP> OR = 100 Last administered on 03/07/18at 04:27; Start 03/06/18 at 08:00 Glucagon (Glucagon Inj) 1 mg UNSCH PRN OTHER HYPOGLYCEMIA-SEE COMMENTS; Start 03/04/18 at 13:30 Hydromorphone HCl (Dilaudid Pf Inj) 0.5 mg ONCE ONCE IV PUSH Last administered on 03/06/18at 03:01; Start 03/06/18 at 00:15; Stop 03/06/18 at 00:16 ; Status DC Insulin Aspart (NovoLOG SUPPLEMENTAL SCALE) 1 ACHS SLIDING SCALE SQ Last administered on 03/06/18at 21:23; Start 03/04/18 at 17:00 Labetalol HCl (Trandate Inj) 20 mg ONCE ONCE IV PUSH Last administered on 03/04at 11:23; Start 03/04/18 at 11:30; Stop 03/04/18 at 11:31; Status DC Lisinopril (Prinivil) 10 mg DAILY PO Last administered on 03/06/18at 08:16; Start 03/05/18 at 09:00 Miscellaneous Information ([facility] Ordered Lab Info) SPECIFIC LAB TO BE ... ONCE ONCE .XX ; Start 03/08/18 at 07:45; Stop 03/08/18 at 07:46 Ondansetron HCl (Zofran Odt) 4 mg Q6H PRN SL nausea Last administered on at 00:41; Start 03/06/18 at 00:15 Pantoprazole Sodium (Protonix) 20 mg DAILY PO Last administered on 03/06/18at 08 :15; Start 03/05/18 at 09:00 Patient Medication Teaching (Coumadin Booklet) 1 ONCE ONCE OTHER Last administered on 03/04/18at 16:43; Start 03/04/18 at 15:00; Stop 03/04/18 at 15:01 ; Status DC Pharmacy Profile Note 0 ml @ 0 mls/hr UNSCH OTHER ; Start 03/04/18 at 13:30 Piperacillin Sod/ Tazobactam Sod 50 ml @ 100 mls/hr Q8H IV Last administered on 03/07/18at 00:35; Start 03/04/18 at 16:00 Pravastatin Sodium (Pravachol) 20 mg HS PO Last administered on 03/06/18at 21:23 ; Start 03/04/18 at 21:00 Pregabalin (Lyrica) 100 mg Q12HR PO Last administered on 03/06/18at 21:23; Start 03/05/18 at 09:00 Primidone (Mysoline) 50 mg TID PO Last administered on 03/06/18at 18:00; Start 03/04/18 at 18:00 Sodium Chloride 1,000 ml @ 70 mls/hr [id number] IV Last administered on at 04:38; Start 03/04/18 at 15:00; Status Future Hold Sodium Chloride (NS Flush) 2 ml UNSCH PRN IV FLUSH FLUSH AFTER USING IV ACCESS ; Start 03/04/18 at 08:30 Vancomycin HCl 1000 mg/Sodium Chloride 250 ml @ 250 mls/hr ONCE ONCE IV Last administered on 03/04/18at 10:46; Start 03/04/18 at 10:45; Stop 03/04/18 at 11:44 ; Status DC Vancomycin HCl 1250 mg/Sodium Chloride 262.5 ml @ 250 mls/hr Q12H IV Last administered on 03/06/18at 19:24; Start 03/06/18 at 20:00 Vancomycin HCl 1500 mg/Sodium Chloride 515 ml @ 257.5 mls/ hr Q12H IV Last administered on 03/06/18at 08:15; Start 03/04/18 at 20:00; Stop 03/06/18 at 16:36 ; Status DC Warfarin Sodium (Coumadin) 4 mg DAILY@1600 PO Last administered on 03/06/18at 14 :55; Start 03/06/18 at 16:00 A/P Problem List: (1) Acute encephalopathy ICD Code: G93.40 - Encephalopathy, unspecified Assessment and Plan A/P - acute encephalopathy- now is more lethargic today. CT head stable with no acute abnormality. EEG with encephalopathy. neurology consult appreciated. will check stat ABG. -Chronic right leg lymphedema /cellulitis- continue IV antibiotics - consulted wound care. one bottle of blood cultures positive for staph coag negative; likely contamination. -acute on chronic respiratory failure/ COPD; resumed Symbicort- continue neb treatment- check ABG and CXR- will consider pulmonary evaluation-pending the work-up. - Diabetes Mellitus; hold oral hypoglycemics- started on accu-check with SSI. -UTI with e-coli- continue antibiotics; will deescalate the antibiotic regimen within the next 24 hrs. -Recurrent DVTs; continue Coumadin- INR therapeutic- pharmacy consulted for coumadin dosing. -Hyperlipidemia; resumed statin -Atrial fibrillation; on Coumadin and Cardizem- -history of CAD/ CVA/ chronic diastolic CHF; continue aspirin, coumadin and statin -hypertension; resumed home meds- continue to monitor. -DVT prophylaxis; on Coumadin. will cancel the transfer to floor due to worsening mental condition. consulted PT. Discharge Planning possible rehab pending clinical course. Zachery Flores MD Mar 07, 2018 08:15
--- NOTE | 2018-03-07 09:11 | RADRPT ---
EXAM DATE: 03/07/2018 8:43 AM EDT AGE/SEX: 62 years / Male INDICATIONS: Shortness of breath and nauseous. CLINICAL DATA: This is the patient's subsequent encounter. Patient reports that signs and symptoms h ave been present for 3 days and indicates a pain score of 0/10. MEDICAL/SURGICAL HISTORY: Congestive heart failure. Hypertension. Chronic obstructive pulmona ry disease. Myocardial infarction. AFIB. . Infusaport. COMPARISON: [facility] [place], CHEST SINGLE AP, 03/04/2018. . FINDINGS: [id number] in good position. Mild cardiomegaly. Minimal interstitial edema. Minimal parenchymal ch anges left base. The portion of the bony skeleton visualized is unremarkable. CONCLUSION: Mild failure New minimal parenchymal changes left base. Electronically signed by: Abdulkadir Whitaker MD 03/07/2018 9:10 AM EDT
[2018-03-07] MEDS: VANCOMYCIN INJ 1,250 MG in SODIUM CHLOR 0.9% 250 ML INJ 250 ML IV SCH ×2 (09:19→20:06)
[2018-03-07] MEDS: PANTOPRAZOLE SOD 20 MG DELAYED RELEASE TAB PO SCH (09:21)
[2018-03-07] MEDS: PREGABALIN 100 MG CAP PO SCH ×2 (09:21→20:05)
[2018-03-07] MEDS: PRIMIDONE 50 MG TAB PO SCH ×3 (09:21→17:59)
[2018-03-07] MEDS: LISINOPRIL 10 MG TAB PO SCH (09:22)
[2018-03-07] MEDS: ASPIRIN 81 MG CHEW TAB CHEW SCH (09:22)
[2018-03-07] MEDS: BUDESONIDE-FORMOTEROL 160/4.5 MCG INHALER INH SCH ×2 (09:25→20:06)
[2018-03-07] MEDS: methylPREDNISolone SOD SUCC 125 MG/2 ML VIAL IV PUSH SCH ×2 (09:48→17:55)
[2018-03-07] MEDS: DILTIAZEM-CD 240 MG CAP ER PO SCH (09:49)
[2018-03-07] MEDS: RESP: ALBUTEROL 2.5 MG/IPRATROPIUM 0.5 MG NEB (SCH) NEB ×4 (11:36→23:40)
[2018-03-07] MEDS: WARFARIN SOD 4 MG TAB PO SCH (17:56)
[2018-03-07] MEDS: ACETAMINOPHEN/HYDROcodone 325 MG/5 MG TAB PO PRN ×2 (17:56→18:56)
[2018-03-07] MEDS: PRAVASTATIN SOD 20 MG TAB PO SCH (20:05)
[2018-03-08] VITALS (13 sets, daily range): BP systolic 110–163; BP diastolic 59–88; PULSE 70–89; RESP 13–20; TEMP 97.7–98.9; O2SAT 93–98
[2018-03-08] MEDS: PIPERACIL-TAZO 3.375 GM PREMIX 50 ML IV SCH ×4 (00:12→23:51)
[2018-03-08] MEDS: ACETAMINOPHEN/HYDROcodone 325 MG/5 MG TAB PO PRN ×5 (00:16→23:14)
[2018-03-08] MEDS: methylPREDNISolone SOD SUCC 125 MG/2 ML VIAL IV PUSH SCH (02:23)
[2018-03-08] MEDS: HYDROmorphone HCL PF 2 MG/ML VIAL IV PRN ×3 (03:08→21:48)
[2018-03-08] MEDS: RESP: ALBUTEROL 2.5 MG/IPRATROPIUM 0.5 MG NEB (SCH) NEB ×5 (03:37→20:37)
[2018-03-08 04:05] LABS: INTERNATIONAL NORMALIZED RATIO 3.5 RATIO; PROTHROMBIN TIME - PATIENT 35.2 SEC (9.8-11.6)
[2018-03-08] MEDS ORDERED: PHARMACY ORDERED LAB ONE (07:45)
--- NOTE | 2018-03-08 07:53 | HHI.PR ---
Subjective Remarks in no acute distress. mental status has much improved; now is awake,alert and oriented. has some pain to the right leg. no fever. Objective Vitals Vital Signs Date Time Temp Pulse Resp B/P (MAP) Pulse Ox O2 Delivery O2 Flow Rate FiO2 03/08/18 07:20 19 03/08/18 06:00 76 03/08/18 04:00 77 03/08/18 04:00 98.0 77 16 137/61 (86) 93 03/08/18 03:38 19 03/08/18 02:00 80 03/08/18 00:00 82 03/08/18 00:00 98.5 82 13 132/63 (86) 97 03/07/18 22:00 78 03/07/18 21:03 20 03/07/18 20:20 96 Nasal Cannula 3.00 03/07/18 20:00 74 03/07/18 20:00 98.1 74 15 124/58 (80) 99 03/07/18 18:00 82 03/07/18 16:00 87 03/07/18 16:00 97.8 80 13 140/68 (92) 96 03/07/18 14:00 87 03/07/18 13:44 88 Nasal Cannula 3.00 03/07/18 12:00 87 03/07/18 12:00 98.3 84 9 157/72 (100) 100 03/07/18 11:35 97 Nasal Cannula 3.00 03/07/18 10:00 87 03/07/18 09:25 97 Simple Mask 7.00 03/07/18 08:00 87 03/07/18 08:00 98.0 88 20 178/79 (112) 97 I/O 03/07/18 03/07/18 03/07/18 03/08/18 03/08/18 03/08/18 07:00 15:00 23:00 07:00 15:00 23:00 Intake Total 240 ml 502.5 ml 410 ml Output Total 525 ml 800 ml 750 ml Balance -285 ml -297.5 ml -340 ml Intake Oral 240 ml 240 ml 360 ml IV Total 262.5 ml 50 ml Output Urine Total 525 ml 800 ml 750 ml # Bowel Movements 0 1 Result Diagram: 03/05/18 0441 03/04/18 0826 Imaging Last Impressions Chest X-Ray 03/07/18 0000 Signed Impressions: CONCLUSION: Mild failure New minimal parenchymal changes left base. Lower Extremity Ultrasound 03/05/18 0000 Signed Impressions: CONCLUSION: 1. No sonographic evidence for right lower extremity DVT. 2. Nonspecific right inguinal adenopathy. Head CT 03/04/18 0816 Signed Impressions: CONCLUSION: 1. Stable CT scan of the brain compared to the prior examination. 2. No focal or acute intracranial hemorrhage. Objective Remarks GENERAL: in no apparent distress. CARDIOVASCULAR: Regular rate and regular rhythm without murmurs, gallops, or rubs. RESPIRATORY: Clear to auscultation. Breath sounds equal bilaterally. No wheezes , rales, or rhonchi. GASTROINTESTINAL: Abdomen soft, non-tender, nondistended. Normal, active bowel sounds MUSCULOSKELETAL:s/p left AKA with lymphedema of the right leg. NEURO: mental status has much improved and now is awake, alert. Medications and IVs Inpatient Medications Acetaminophen/ Hydrocodone Bitart ([place] 5-325 Mg) 1 tab Q4H PRN PO pain>5 Last administered on 03/08/18at 06:20; Start 03/04/18 at 21:30 Albuterol/ Ipratropium (Duoneb Neb) 1 ampule Q4HR NEB NEB Last administered on 03/07/18 23:40; Start 03/07/18 at 12:00 Aspirin (Aspirin Chew) 81 mg DAILY CHEW Last administered on 03/07/18 09:22; Start 03/05/18 at 09:00 Budesonide/ Formoterol Fumarate (Symbicort 160-4.5 Mcg Inh) 2 puff BID INH Last administered on 03/07/18at 20:06; Start 03/04/18 at 21:00 Dextrose (D50w (Vial) Inj) 50 ml UNSCH PRN IV PUSH HYPOGLYCEMIA-SEE COMMENTS; Start 03/04/18 at 13:30 Diltiazem HCl (Cardizem Cd) 240 mg DAILY PO Last administered on 03/07/18at 09: 49; Start 03/05/18 at 09:00 Enalaprilat (Vasotec Inj) 1.25 mg Q8H PRN IV PUSH SBP> OR = 180, DBP> OR = 100 Last administered on 03/07/18at 04:27; Start 03/06/18 at 08:00 Glucagon (Glucagon Inj) 1 mg UNSCH PRN OTHER HYPOGLYCEMIA-SEE COMMENTS; Start 03/04/18 at 13:30 Hydromorphone HCl (Dilaudid Pf Inj) 0.5 mg ONCE ONCE IV PUSH Last administered on 03/06/18at 03:01; Start 03/06/18 at 00:15; Stop 03/06/18 at 00:16 ; Status DC Insulin Aspart (NovoLOG SUPPLEMENTAL SCALE) 1 ACHS SLIDING SCALE SQ Last administered on 03/07/18at 20:28; Start 03/04/18 at 17:00 Labetalol HCl (Trandate Inj) 20 mg ONCE ONCE IV PUSH Last administered on 03/04at 11:23; Start 03/04/18 at 11:30; Stop 03/04/18 at 11:31; Status DC Lisinopril (Prinivil) 10 mg DAILY PO Last administered on 03/07/18at 09:22; Start 03/05/18 at 09:00 Methylprednisolone Sodium Succinate (SoluMEDROL INJ) 60 mg Q8H IV PUSH Last administered on 03/08/18at 02:23; Start 03/07/18 at 10:00 Miscellaneous Information ([facility] Ordered Lab Info) SPECIFIC LAB TO BE ... ONCE ONCE .XX ; Start 03/08/18 at 07:45; Stop 03/08/18 at 07:46 Ondansetron HCl (Zofran Odt) 4 mg Q6H PRN SL nausea Last administered on at 00:41; Start 03/06/18 at 00:15 Pantoprazole Sodium (Protonix) 20 mg DAILY PO Last administered on 03/07/18at 09 :21; Start 03/05/18 at 09:00 Patient Medication Teaching (Coumadin Booklet) 1 ONCE ONCE OTHER Last administered on 03/04/18at 16:43; Start 03/04/18 at 15:00; Stop 03/04/18 at 15:01 ; Status DC Pharmacy Profile Note 0 ml @ 0 mls/hr UNSCH OTHER ; Start 03/04/18 at 13:30 Piperacillin Sod/ Tazobactam Sod 50 ml @ 100 mls/hr Q8H IV Last administered on 03/08/18at 00:12; Start 6/19/18 at 16:00 Pravastatin Sodium (Pravachol) 20 mg HS PO Last administered on 03/07/18at 20:05 ; Start 03/04/18 at 21:00 Pregabalin (Lyrica) 100 mg Q12HR PO Last administered on 03/07/18at 20:05; Start 03/05/18 at 09:00 Primidone (Mysoline) 50 mg TID PO Last administered on 03/07/18at 17:59; Start 03/04/18 at 18:00 Sodium Chloride 1,000 ml @ 70 mls/hr [id number] IV Last administered on at 04:38; Start 03/04/18 at 15:00; Status Future Hold Sodium Chloride (NS Flush) 2 ml UNSCH PRN IV FLUSH FLUSH AFTER USING IV ACCESS ; Start 03/04/18 at 08:30 Vancomycin HCl 1000 mg/Sodium Chloride 250 ml @ 250 mls/hr ONCE ONCE IV Last administered on 03/04/18at 10:46; Start 03/04/18 at 10:45; Stop 03/04/18 at 11:44 ; Status DC Vancomycin HCl 1250 mg/Sodium Chloride 262.5 ml @ 250 mls/hr Q12H IV Last administered on 03/07/18at 20:06; Start 03/06/18 at 20:00 Vancomycin HCl 1500 mg/Sodium Chloride 515 ml @ 257.5 mls/ hr Q12H IV Last administered on 03/06/18at 08:15; Start 03/04/18 at 20:00; Stop 03/06/18 at 16:36 ; Status DC Warfarin Sodium (Coumadin) 4 mg DAILY@1600 PO Last administered on 03/07/18at 17 :56; Start 03/06/18 at 16:00 A/P Problem List: (1) Acute encephalopathy ICD Code: G93.40 - Encephalopathy, unspecified Assessment and Plan A/P - acute encephalopathy- likely due to hypercapnia- now has much improved. CT head stable with no acute abnormality. EEG with encephalopathy. neurology consult appreciated. -Chronic right leg lymphedema /cellulitis- continue IV antibiotics - consulted wound care. one bottle of blood cultures positive for staph hominis; likely contamination. will deescalate the antibiotic regimen within the next 24 hrs- -acute on chronic respiratory failure/ COPD; resumed Symbicort- continue neb treatment- continue with IV steroids- pulmonary consulted. - Diabetes Mellitus; hold oral hypoglycemics- started on accu-check with SSI. -UTI with e-coli- continue antibiotics. -Recurrent DVTs; hold Coumadin today since INR is supra therapeutic- pharmacy consulted for coumadin dosing. -Hyperlipidemia; resumed statin -Atrial fibrillation; on Coumadin and Cardizem- -history of CAD/ CVA/ chronic diastolic CHF; continue aspirin, coumadin and statin -hypertension; resumed home meds- continue to monitor. -DVT prophylaxis; on Coumadin ( on hold today as noted above). will transfer to telemetry within the next 24 hrs if stable. consulted PT. Discharge Planning possible rehab pending clinical course. Zachery Flores MD Mar 08, 2018 07:53
[2018-03-08] MEDS: DILTIAZEM-CD 240 MG CAP ER PO SCH (07:59)
[2018-03-08] MEDS: VANCOMYCIN INJ 1,250 MG in SODIUM CHLOR 0.9% 250 ML INJ 250 ML IV SCH ×2 (07:59→23:14)
[2018-03-08] MEDS: PRIMIDONE 50 MG TAB PO SCH ×3 (07:59→17:14)
[2018-03-08] MEDS: ASPIRIN 81 MG CHEW TAB CHEW SCH (07:59)
[2018-03-08] MEDS: LISINOPRIL 10 MG TAB PO SCH (08:00)
[2018-03-08] MEDS: PREGABALIN 100 MG CAP PO SCH ×2 (08:00→21:48)
[2018-03-08] MEDS: PANTOPRAZOLE SOD 20 MG DELAYED RELEASE TAB PO SCH (08:00)
[2018-03-08] MEDS: BUDESONIDE-FORMOTEROL 160/4.5 MCG INHALER INH SCH ×2 (08:00→21:49)
[2018-03-08 08:39] LABS: BICARBONATE 33.2 MEQ/L (21.0-32.0); CALCIUM 8.6 MG/DL (8.5-10.1); CREATININE 0.83 MG/DL (0.60-1.30)
[2018-03-08 08:42] LABS: VANCOMYCIN TROUGH 17.3 MCG/ML (5.0-10.0)
[2018-03-08 08:53] LABS: AUTOMATED NEUTROPHIL # 4.3 TH/MM3 (1.8-7.7); BASOPHIL % 0.3 % (0.0-2.0); HEMATOCRIT 29.4 % (39.0-51.0); HEMOGLOBIN 8.9 GM/DL (13.0-17.0); LYMPH % 12.6 % (9.0-44.0); LYMPHOCYTE # 0.6 TH/MM3 (1.0-4.8); MEAN CELL VOLUME 78.6 FL (80.0-100.0); MEAN CORPUSCULAR HEMOGLOBIN 23.8 PG (27.0-34.0); MEAN CORPUSCULAR HGB CONC 30.3 % (32.0-36.0); MEAN PLATELET VOLUME 8.5 FL (7.0-11.0); MONO % 2.7 % (0.0-8.0); MONOCYTE # 0.1 TH/MM3 (0-0.9); NEUT % 84.4 % (16.0-70.0); PLATELET COUNT 279 TH/MM3 (150-450); RED BLOOD COUNT 3.74 MIL/MM3 (4.50-5.90); RED CELL DISTRIBUTION WIDTH 17.9 % (11.6-17.2); WHITE BLOOD COUNT 5.1 TH/MM3 (4.0-11.0)
[2018-03-08] MEDS: methylPREDNISolone SOD SUCC 40 MG/1 ML VIAL IV PUSH SCH ×2 (09:14→17:14)
[2018-03-08] MEDS: INSULIN ASPART SUPPLEMENTAL SCALE SQ SCH ×4 (09:14→21:51)
--- NOTE | 2018-03-08 17:01 | HHI.PR ---
Subjective Remarks ALERT TODAY NO SOB Objective Vital Signs Date Time Temp Pulse Resp B/P (MAP) Pulse Ox O2 Delivery O2 Flow Rate FiO2 03/08/18 16:00 83 03/08/18 16:00 98.1 83 18 143/65 (91) 98 03/08/18 14:00 70 03/08/18 14:00 98.1 83 18 143/65 (91) 98 03/08/18 14:00 83 03/08/18 12:00 83 03/08/18 12:00 98.1 83 18 143/65 (91) 98 03/08/18 10:00 85 03/08/18 10:00 98.1 83 18 143/65 (91) 98 03/08/18 10:00 83 03/08/18 08:00 98.1 83 18 143/65 (91) 98 03/08/18 08:00 83 03/08/18 07:47 93 Nasal Cannula 2.00 03/08/18 07:20 19 03/08/18 06:00 76 03/08/18 04:00 77 03/08/18 04:00 98.0 77 16 137/61 (86) 93 03/08/18 03:38 19 03/08/18 02:00 80 03/08/18 00:00 82 03/08/18 00:00 98.5 82 13 132/63 (86) 97 03/07/18 22:00 78 03/07/18 21:03 20 03/07/18 20:20 96 Nasal Cannula 3.00 03/07/18 20:00 74 03/07/18 20:00 98.1 74 15 124/58 (80) 99 03/07/18 18:00 82 I/O 03/07/18 03/07/18 03/07/18 03/08/18 03/08/18 03/08/18 07:00 15:00 23:00 07:00 15:00 23:00 Intake Total 240 ml 502.5 ml 410 ml 380 ml Output Total 525 ml 800 ml 750 ml Balance -285 ml -297.5 ml -340 ml 380 ml Intake Oral 240 ml 240 ml 360 ml 380 ml IV Total 262.5 ml 50 ml Output Urine Total 525 ml 800 ml 750 ml # Bowel Movements 0 1 Result Diagram: 03/08/18 0810 03/08/18 0745 Objective Remarks GENERAL: SKIN: Warm and dry. HEAD: Atraumatic. Normocephalic. EYES: Pupils equal and round. No scleral icterus. No injection or drainage. ENT: No nasal bleeding or discharge. Mucous membranes pink and moist. NECK: Trachea midline. No JVD. CARDIOVASCULAR: Regular rate and rhythm. RESPIRATORY: No accessory muscle use. Clear to auscultation. Breath sounds equal bilaterally. GASTROINTESTINAL: Abdomen soft, non-tender, nondistended. Hepatic and splenic margins not palpable. MUSCULOSKELETAL: Extremities without clubbing, cyanosis, or edema. No obvious deformities. LEFT AKA NEUROLOGICAL: Awake and alert. No obvious cranial nerve deficits. Motor grossly within normal limits. Five out of 5 muscle strength in the arms and legs. Normal speech. PSYCHIATRIC: Appropriate mood and affect; insight and judgment normal. Assessment and Plan Assessment and Plan IMPRESSION RESPIRATORY FAILURE JYOTSNA COPD OBESITY PLAN DECLINES PAP THERAPY BRONCHODILATORS O2 NEEDED BETO WT Terese Gudino MD Mar 08, 2018 17:01
[2018-03-08] MEDS: PRAVASTATIN SOD 20 MG TAB PO SCH (21:48)
[2018-03-09] VITALS (11 sets, daily range): BP systolic 103–128; BP diastolic 58–77; PULSE 71–101; RESP 18–20; TEMP 97.5–97.9; O2SAT 91–96
[2018-03-09] MEDS: RESP: ALBUTEROL 2.5 MG/IPRATROPIUM 0.5 MG NEB (SCH) NEB ×6 (00:06→21:08)
[2018-03-09] MEDS: HYDROmorphone HCL PF 2 MG/ML VIAL IV PRN ×3 (01:25→12:27)
[2018-03-09] MEDS: methylPREDNISolone SOD SUCC 40 MG/1 ML VIAL IV PUSH SCH ×3 (01:25→17:02)
[2018-03-09] MEDS: ACETAMINOPHEN/HYDROcodone 325 MG/5 MG TAB PO PRN ×3 (04:00→19:40)
[2018-03-09 08:20] LABS: PROTHROMBIN TIME - PATIENT 30.6 SEC (9.8-11.6)
[2018-03-09] MEDS: PIPERACIL-TAZO 3.375 GM PREMIX 50 ML IV SCH ×2 (08:52→17:03)
[2018-03-09] MEDS: PREGABALIN 100 MG CAP PO SCH ×2 (08:53→21:15)
[2018-03-09] MEDS: ASPIRIN 81 MG CHEW TAB CHEW SCH (08:53)
[2018-03-09] MEDS: PANTOPRAZOLE SOD 20 MG DELAYED RELEASE TAB PO SCH (08:53)
[2018-03-09] MEDS: BUDESONIDE-FORMOTEROL 160/4.5 MCG INHALER INH SCH ×2 (08:54→21:17)
[2018-03-09] MEDS: INSULIN ASPART SUPPLEMENTAL SCALE SQ SCH ×4 (08:55→21:00)
[2018-03-09] MEDS: DILTIAZEM-CD 240 MG CAP ER PO SCH (08:55)
[2018-03-09] MEDS: LISINOPRIL 10 MG TAB PO SCH (08:55)
[2018-03-09] MEDS: VANCOMYCIN INJ 1,250 MG in SODIUM CHLOR 0.9% 250 ML INJ 250 ML IV SCH ×2 (09:35→21:11)
[2018-03-09] MEDS: PRIMIDONE 50 MG TAB PO SCH ×3 (09:35→19:40)
--- NOTE | 2018-03-09 13:56 | HHI.PR ---
Subjective Remarks ALERT TODAY NO SOB Objective Vital Signs Date Time Temp Pulse Resp B/P (MAP) Pulse Ox O2 Delivery O2 Flow Rate FiO2 03/09/18 12:34 97.5 88 18 119/58 (78) 91 03/09/18 08:40 94 Nasal Cannula 2.00 03/09/18 08:00 97.6 88 19 117/59 (78) 93 03/09/18 07:49 91 03/09/18 04:00 97.7 86 20 124/61 (82) 93 03/09/18 00:00 97.9 101 20 113/62 (79) 94 03/08/18 20:38 96 Nasal Cannula 2.00 03/08/18 20:00 97.7 89 20 110/59 (76) 96 03/08/18 18:00 98.9 82 18 163/88 (113) 97 03/08/18 16:00 83 03/08/18 16:00 98.1 83 18 143/65 (91) 98 03/08/18 14:00 70 03/08/18 14:00 98.1 83 18 143/65 (91) 98 03/08/18 14:00 83 I/O 03/08/18 03/08/18 03/08/18 03/09/18 03/09/18 03/09/18 07:00 15:00 23:00 07:00 15:00 23:00 Intake Total 410 ml 380 ml 500 ml Output Total 750 ml 1150 ml Balance -340 ml 380 ml -650 ml Intake Oral 360 ml 380 ml 500 ml IV Total 50 ml Output Urine Total 750 ml 1150 ml # Bowel Movements 1 Result Diagram: 03/08/18 0810 03/08/18 0745 Objective Remarks GENERAL: SKIN: Warm and dry. HEAD: Atraumatic. Normocephalic. EYES: Pupils equal and round. No scleral icterus. No injection or drainage. ENT: No nasal bleeding or discharge. Mucous membranes pink and moist. NECK: Trachea midline. No JVD. CARDIOVASCULAR: Regular rate and rhythm. RESPIRATORY: No accessory muscle use. Clear to auscultation. Breath sounds equal bilaterally. GASTROINTESTINAL: Abdomen soft, non-tender, nondistended. Hepatic and splenic margins not palpable. MUSCULOSKELETAL: Extremities without clubbing, cyanosis, or edema. No obvious deformities. LEFT AKA NEUROLOGICAL: Awake and alert. No obvious cranial nerve deficits. Motor grossly within normal limits. Five out of 5 muscle strength in the arms and legs. Normal speech. PSYCHIATRIC: Appropriate mood and affect; insight and judgment normal. Assessment and Plan Assessment and Plan IMPRESSION RESPIRATORY FAILURE JYOTSNA COPD OBESITY PLAN DECLINES PAP THERAPY BRONCHODILATORS O2 NEEDED LOOSE WT Terese Gudino MD Mar 09, 2018 13:56
[2018-03-09] MEDS ORDERED: glipiZIDE 10 MG TAB PO SCH (14:00)
--- NOTE | 2018-03-09 14:03 | HHI.PR ---
Objective Vitals Vital Signs Date Time Temp Pulse Resp B/P (MAP) Pulse Ox O2 Delivery O2 Flow Rate FiO2 03/09/18 12:34 97.5 88 18 119/58 (78) 91 03/09/18 08:40 94 Nasal Cannula 2.00 03/09/18 08:00 97.6 88 19 117/59 (78) 93 03/09/18 07:49 91 03/09/18 04:00 97.7 86 20 124/61 (82) 93 03/09/18 00:00 97.9 101 20 113/62 (79) 94 03/08/18 20:38 96 Nasal Cannula 2.00 03/08/18 20:00 97.7 89 20 110/59 (76) 96 03/08/18 18:00 98.9 82 18 163/88 (113) 97 03/08/18 16:00 83 03/08/18 16:00 98.1 83 18 143/65 (91) 98 03/08/18 14:00 70 03/08/18 14:00 98.1 83 18 143/65 (91) 98 03/08/18 14:00 83 I/O 03/08/18 03/08/18 03/08/18 03/09/18 03/09/18 03/09/18 07:00 15:00 23:00 07:00 15:00 23:00 Intake Total 410 ml 380 ml 500 ml Output Total 750 ml 1150 ml Balance -340 ml 380 ml -650 ml Intake Oral 360 ml 380 ml 500 ml IV Total 50 ml Output Urine Total 750 ml 1150 ml # Bowel Movements 1 Result Diagram: 03/08/18 0810 03/08/18 0745 Imaging Last Impressions Chest X-Ray 03/07/18 0000 Signed Impressions: CONCLUSION: Mild failure New minimal parenchymal changes left base. Lower Extremity Ultrasound 03/05/18 0000 Signed Impressions: CONCLUSION: 1. No sonographic evidence for right lower extremity DVT. 2. Nonspecific right inguinal adenopathy. Head CT 03/04/18 0816 Signed Impressions: CONCLUSION: 1. Stable CT scan of the brain compared to the prior examination. 2. No focal or acute intracranial hemorrhage. Objective Remarks General: Morbidly obese male in no acute distress. Heart: Regular rate and rhythm. No murmur. Lungs: Clear to auscultation bilaterally. No wheezes, rales, or rhonchi. Breathing is nonlabored. Abdomen: Soft, nontender, nondistended. Extremities: Left AKA. Right lower extremity lymphedema. Psych: Alert and oriented. Neuro: Normal speech. No focal deficits noted. Procedures None Urinary Catheter: Yes Assessment to: Continue Barlow insert reason: Obstruction/Retention Vascular Central Line Catheter: Yes (Port) A/P Problem List: (1) Acute encephalopathy ICD Code: G93.40 - Encephalopathy, unspecified Assessment and Plan 1. Acute encephalopathy: Likely secondary to hypercapnia. Improved significantly. Head CT shows no acute abnormality. EEG showed encephalopathy. Appreciate neurology recommendations. 2. Chronic right lower extremity lymphedema, cellulitis: Continue IV antibiotics. Continue wound care. Consult infectious disease. 3. Bacteremia: 1 bottle positive for staph hominis. Likely contamination. 4. Acute on chronic respiratory failure, COPD exacerbation: Continue Symbicort. Continue nebulizer treatments. Continue IV steroids. Appreciate pulmonology recommendations. Patient is on 2 L of oxygen continuously at home. 5. Diabetes mellitus: Poorly controlled. Restart glipizide. Monitor Accu- Cheks and cover with sliding scale insulin. Increased to medium scale today. 6. Recurrent DVTs: INR supratherapeutic. Pharmacy to dose Coumadin. 7. Atrial fibrillation: Anticoagulation with Coumadin. Continue Cardizem. 8. Chronic diastolic congestive heart failure: Not in acute exacerbation. Continue home medications. 9. Hypertension: Continue home medications. 10. UTI: Multidrug resistant E. coli. Consult infectious disease. Brandon Sheth MD Mar 09, 2018 14:03
--- NOTE | 2018-03-09 15:20 | MB ---
cc: Terese Gudino MD DATE: 03/07/2018 REASON FOR CONSULTATION: Respiratory failure, sleep apnea. HISTORY OF PRESENT ILLNESS: Mr. Contreras is a 62-year-old, morbidly obese, male who was admitted with altered mental status. The patient has a known history of obstructive sleep apnea, noncompliant with CPAP, diabetes mellitus, previous CVA, TIA, chronic atrial fibrillation and a cerebral aneurysm with clipping. The patient's mental status has improved since he was hospitalized. Apparently, he was found confused on the floor at home. PAST MEDICAL HISTORY: Essentially as outlined above, notable for diabetes mellitus, previous stroke, TIA, COPD, clipped cerebral aneurysm, congestive heart failure, and chronic right leg lymphedema. MEDICATIONS AND ALLERGIES TO MEDICATIONS: Kindly review of admission records for detail. FAMILY HISTORY: Noncontributory. SOCIAL HISTORY: Remote smoking history. Not at present. Does not drink, does not use drugs. REVIEW OF SYSTEMS: A 12-point review of system is as per HPI and past history, otherwise negative. PHYSICAL EXAMINATION: GENERAL: The patient is alert. VITAL SIGNS: Temperature 98, pulse 80, respiration 16, blood pressure 130/60, oxygen saturation 96% on 2 L oxygen nasal cannula. HEENT: Unremarkable. Eyes without icterus. NECK: Without adenopathy, thyroid enlargement. CHEST: No dullness to percussion. Few rhonchi at the bases on auscultation. CARDIAC: Irregularity noted. ABDOMEN: Obese, lax, bowel sounds audible. EXTREMITIES: Left lower extremity lymphedema. Right lower extremity lymphedema. LABORATORY DATA: White count 12,000, hemoglobin 9, hematocrit 30. Sodium 135, potassium 3.8, BUN 9, creatinine 0.9. Arterial blood gas this a.m. on 1 liter nasal cannula, pH 7.30, pCO2 of 68, pO2 of 55. IMPRESSION: 1. Obstructive sleep apnea, noncompliant with therapy. 2. Chronic obstructive pulmonary disease. 3. Hypoxic and hypercapnic respiratory failure. 4. Morbid obesity. 5. Diabetes mellitus. 6. Congestive heart failure. PLAN: The patient's altered mental status for all likelihood is related to the significant hypercapnia. His pCO2 is quite elevated with a chronic respiratory acidosis and this is most obvious in the program manager hours, and that is probably why he was found on the floor at home and gets confused even in the hospital, especially in the morning hours. I have talked with his caregivers in detail and indeed, they agree that the patient, when he first wakes up in the morning, seems dazed and startled and confused and slowly clears up during the day. Unfortunately, the best treatment for respiratory failure associated hypercapnia is some form of ventilation. The patient absolutely refuses to have BiPAP therapy and obviously, tracheostomy or ventilatory support on long-term basis. Therefore, the only option would be bronchodilator therapy to optimize pulmonary function. Obtain pulmonary function when possible. Oxygen therapy as well would be given on as needed. Check baseline thyroid function studies and if indeed low, this needs to be addressed. The patient's outlook with his multiple medical problems is poor. Terese Gudino MD WWW/RONALDO , 04:59 PM , 05:31 PM
[2018-03-09] MEDS: glipiZIDE 10 MG TAB PO SCH (17:02)
[2018-03-09] MEDS: PRAVASTATIN SOD 20 MG TAB PO SCH (21:15)
[2018-03-10] VITALS (10 sets, daily range): BP systolic 100–144; BP diastolic 51–72; PULSE 68–94; RESP 18–20; TEMP 97.4–98.6; O2SAT 95–98
[2018-03-10] MEDS: PIPERACIL-TAZO 3.375 GM PREMIX 50 ML IV SCH ×2 (00:13→08:55)
[2018-03-10] MEDS: RESP: ALBUTEROL 2.5 MG/IPRATROPIUM 0.5 MG NEB (SCH) NEB ×6 (00:42→21:25)
[2018-03-10] MEDS: ACETAMINOPHEN/HYDROcodone 325 MG/5 MG TAB PO PRN ×4 (02:04→20:16)
[2018-03-10] MEDS: methylPREDNISolone SOD SUCC 40 MG/1 ML VIAL IV PUSH SCH ×3 (02:04→17:17)
[2018-03-10] MEDS: glipiZIDE 10 MG TAB PO SCH ×2 (06:48→16:33)
[2018-03-10] MEDS: VANCOMYCIN INJ 1,250 MG in SODIUM CHLOR 0.9% 250 ML INJ 250 ML IV SCH (08:55)
[2018-03-10] MEDS: DILTIAZEM-CD 240 MG CAP ER PO SCH (08:56)
[2018-03-10] MEDS: PRIMIDONE 50 MG TAB PO SCH ×3 (08:56→17:16)
[2018-03-10] MEDS: ASPIRIN 81 MG CHEW TAB CHEW SCH (08:57)
[2018-03-10] MEDS: PREGABALIN 100 MG CAP PO SCH ×2 (08:57→20:16)
[2018-03-10] MEDS: LISINOPRIL 10 MG TAB PO SCH (08:57)
[2018-03-10] MEDS: PANTOPRAZOLE SOD 20 MG DELAYED RELEASE TAB PO SCH (08:57)
[2018-03-10] MEDS: HYDROmorphone HCL PF 2 MG/ML VIAL IV PRN ×3 (09:07→20:17)
[2018-03-10] MEDS: INSULIN ASPART SUPPLEMENTAL SCALE SQ SCH ×4 (09:09→20:39)
[2018-03-10] MEDS: BUDESONIDE-FORMOTEROL 160/4.5 MCG INHALER INH SCH ×2 (09:11→20:17)
[2018-03-10] MEDS ORDERED: ALTEPLASE RECOMBINANT 2 MG VIAL INTRACATH ONE (11:00)
[2018-03-10] MEDS ORDERED: SODIUM CHLORIDE 0.9% FLUSH 10 ML FLUSH IV FLUSH PRN (11:00)
--- NOTE | 2018-03-10 11:06 | HHI.PR ---
Subjective Remarks Refusing for anybody touch his right lower leg. He states that his breathing is better. He states that he is on 2 L of oxygen chronically. He reports he refuses to go to rehab and prefers to go home. He does have electric wheelchair all the medical equipment needed at home. Objective Vitals Vital Signs Date Time Temp Pulse Resp B/P (MAP) Pulse Ox O2 Delivery O2 Flow Rate FiO2 03/10/18 08:12 98.1 94 18 120/57 (78) 96 03/10/18 07:44 95 Nasal Cannula 2.00 03/10/18 07:00 Nasal Cannula 2.00 03/10/18 04:38 98.0 75 20 144/72 (96) 95 03/10/18 02:58 Nasal Cannula 2.00 03/10/18 00:47 97.4 79 20 125/61 (82) 96 03/09/18 21:08 96 Nasal Cannula 2.00 03/09/18 20:50 97.8 87 18 128/77 (94) 95 03/09/18 16:00 97.6 71 18 103/72 (82) 94 03/09/18 12:34 97.5 88 18 119/58 (78) 91 03/09/18 12:00 82 I/O 03/09/18 03/09/18 03/09/18 03/10/18 03/10/18 03/10/18 07:00 15:00 23:00 07:00 15:00 23:00 Intake Total 500 ml 480 ml Output Total 1150 ml 700 ml 600 ml Balance -650 ml -220 ml -600 ml Intake Oral 500 ml 480 ml Output Urine Total 1150 ml 700 ml 600 ml Result Diagram: 03/08/18 0810 03/08/18 0745 Other Results Item Value Date Time Bedside Blood Glucose 290 mg/dl 03/10/18 0909 Bedside Blood Glucose 363 mg/dl 03/09/18 1749 Objective Remarks GENERAL: This is a well-nourished, obese, well-developed patient, in no apparent distress. CARDIOVASCULAR: Regular rate and rhythm without murmurs, gallops, or rubs. RESPIRATORY: Relatively clear to auscultation bilaterally GASTROINTESTINAL: Abdomen soft, non-tender, nondistended. Normal active bowel sounds, Abrlow in place MUSCULOSKELETAL: Chronic venous stasis dermatitis changes with peeling of the skin with 2+ edema NEURO: Alert & Oriented x3 to person, place, time. Moves all ext x4 Procedures None A/P Problem List: (1) Acute encephalopathy ICD Code: G93.40 - Encephalopathy, unspecified Assessment and Plan 1. Acute metabolic encephalopathy now resolved: Likely secondary to hypercapnia. Improved significantly. Head CT shows no acute abnormality. EEG showed encephalopathy. Appreciate neurology recommendations. 2. Chronic right lower extremity lymphedema, cellulitis: Continue IV antibiotics Zosyn and vancomycin. Patient is clinically improved, continue wound care. Patient refuses anybody touching his right lower leg and declined Lac-Hydrin lotion to the area as recommended. 3. Bacteremia: 1 bottle positive for staph hominis. Likely contamination. 4. Acute on chronic respiratory failure, COPD exacerbation: Continue Symbicort. Continue nebulizer treatments. Continue IV steroids and wean as tolerated. Appreciate pulmonology recommendations. Patient is on 2 L of oxygen continuously at home. Patient has refused CPAP 5. Diabetes mellitus type II: Poorly controlled. Restart glipizide. Monitor Accu-Cheks and cover with sliding scale insulin. Increased to medium scale today. Add Levemir to the regimen today 6. Recurrent DVTs: INR supratherapeutic yesterday 3.0. Pharmacy to dose Coumadin. INR currently pending 7. Atrial fibrillation: Anticoagulation with Coumadin. Continue Cardizem for rate control. 8. Chronic diastolic congestive heart failure: Not in acute exacerbation. Continue home medications. 9. Hypertension, chronic essential: Continue home medications. 10. UTI: Multidrug resistant E. coli. Currently on Zosyn Day # 8. Consider transitioning to PO Augmentin. Patient refuses to have Barlow catheter removed despite counseling and risks of recurrent infection. Consideration for discontinue Barlow catheter in the morning upon transitioning for discharge planning Discharge Planning Discharge to home with home health care when medically stable. Patient is refusing longterm facility placement. Janay Estrada MD Mar 10, 2018 11:06
--- NOTE | 2018-03-10 11:11 | HHI.FF ---
Face to Face Verification Diagnosis: (1) Acute and chronic respiratory failure (2) Acute encephalopathy Physical Therapy Order: Evaluate and Treat Home Health Nursing Order: Medical education Diabetic education I have seen patient Jorge Alberto Contreras on 03/10/18. My clinical findings support the need for the requested home health care services because: Ltd mobility - disease progression I certify that my clinical findings support that this patient is homebound because: Unsteady gait/balance Janay Estrada MD Mar 10, 2018 11:11
[2018-03-10] MEDS: INSULIN DETEMIR 100 UNITS/ML VIAL SQ SCH ×2 (11:32→20:39)
--- NOTE | 2018-03-10 13:29 | MB ---
cc: Tino Garcia MD DATE: 03/10/2018 REQUESTING PHYSICIAN: Dr. Sheth REASON: UTI with MDR Escherichia coli, cellulitis of the right lower extremity, blood culture growing Staph hominis. HISTORY OF PRESENT ILLNESS: This is a 62-year-old white male who was admitted to the hospital on 03/04/2018. The patient presented to the emergency department by ambulance after he was found lying on the floor near his bed. The patient was noted to have significant mental status change and he could not provide any meaningful information on admission. His temperature was normal and his white count was elevated at 15.3. He had abnormal urinalysis and urine culture was taken and it came back with multiresistant Escherichia coli. Blood cultures were also taken and one bottle came back with Staph hominis. He had no fever during the admission. The white blood cell count has improved and it came down to 5.1 on 03/08/2018. The patient currently has a Barlow catheter in place. He was noted to have erythema of the right lower extremity felt to be consistent with cellulitis. He notes that his right leg is very painful and wan and just slight touch leads to pain even touching his toes. The patient notes that he has a cough, but is not producing any sputum. A chest x-ray reports that he has an infiltrate in the left lung. PAST MEDICAL HISTORY: Recurrent cellulitis, hyperlipidemia, atrial fibrillation, cardiomyopathy, congestive heart failure, coronary artery disease, history of CVA, history of TIA, hypertension, COPD, migraines, osteoarthritis, diabetes mellitus, left leg [id number] amputation, aneurysm clipping, tonsillectomy, appendectomy, right leg wound culture with MRSA in 05/2017. ALLERGIES: DIATRIZOATE, MEGLUMINE, GADOBENIC ACID, GADODIAMIDE, GADOTERIDOL, IODINE, IODIXANOL, IOHEXOL, POTASSIUM IODIDE, POVIDONE IODIDE, SODIUM IODIDE. MEDICATIONS: 1. Piperacillin/tazobactam 2. Vancomycin. 3. Aspirin. 4. Prinivil. 5. Cardizem. 6. Protonix. 7. Lyrica. 8. Dilaudid p.r.n. 9. [place] 5 p.r.n. 10. Pravachol. 11. DuoNeb. SOCIAL HISTORY: The patient smokes 4 cigars a day. Positive alcohol use. No illicit drugs. FAMILY HISTORY: Noncontributory. REVIEW OF SYSTEMS: Significant for pain in the right leg and dry cough. Otherwise, negative on a 10-point review. PHYSICAL EXAMINATION: GENERAL: This is a moderately obese male who is in no acute distress. He is awake and alert and oriented. VITAL SIGNS: Blood pressure 125/59, respirations 18, heart rate 75. HEENT: Head is atraumatic. Extraocular movements grossly intact. Pupils reactive to light. No icterus. Oropharynx: Moist mucosa. No visible lesions. NECK: Supple. No adenopathy. LUNGS: Diminished breath sounds bilateral. No rhonchi. HEART: Regular S1, S2, without murmurs. ABDOMEN: Obese, soft, nontender. RECTAL: Not performed. EXTREMITIES: The right leg has minimal erythema. There is chronic changes of the tibia. Slight weeping anteriorly. The tissues of the toes and dorsum of the right foot has a granular changes. There is chronic enlargement of the tissues of the right leg and right foot. NEUROLOGIC: No gross focal findings. PSYCHIATRIC: The patient is calm and cooperative. LABORATORY DATA: WBC 5.1, platelets 279, hemoglobin 8.9. Creatinine 0.83, BUN 15, sodium 133. IMPRESSION: 1. Escherichia coli urinary tract infection, multidrug resistant. 2. Staphylococcus hominis positive blood culture, 1 of 4 bottles which I think is contamination. 3. Abnormal chest x-ray reported with new parenchymal changes at the left base. However, the patient does not appear to have pneumonia clinically. RECOMMENDATIONS: 1. Discontinue vancomycin. 2. Discontinue piperacillin/tazobactam. 3. Give ceftriaxone intravenously for 7 days. 4. Remove the Barlow catheter if possible. Thank you for this consultation. I will write the order for the ceftriaxone with end date. MD TIMOTHY Jacob/RONALDO , 12:53 PM , 01:28 PM
[2018-03-10 14:25] LABS: INTERNATIONAL NORMALIZED RATIO 2.1 RATIO; PROTHROMBIN TIME - PATIENT 21.6 SEC (9.8-11.6)
[2018-03-10 14:42] LABS: CREATININE 1.01 MG/DL (0.60-1.30)
[2018-03-10] MEDS: WARFARIN SOD 4 MG TAB PO SCH (16:33)
--- NOTE | 2018-03-10 17:20 | HHI.PR ---
Subjective Remarks ALERT TODAY NO SOB Objective Vital Signs Date Time Temp Pulse Resp B/P (MAP) Pulse Ox O2 Delivery O2 Flow Rate FiO2 03/10/18 16:26 97.6 68 20 100/51 (67) 95 03/10/18 12:04 98.6 75 18 125/59 (81) 98 03/10/18 12:00 74 03/10/18 08:12 98.1 94 18 120/57 (78) 96 03/10/18 08:00 70 03/10/18 07:44 95 Nasal Cannula 2.00 03/10/18 07:00 Nasal Cannula 2.00 03/10/18 04:38 98.0 75 20 144/72 (96) 95 03/10/18 02:58 Nasal Cannula 2.00 03/10/18 00:47 97.4 79 20 125/61 (82) 96 03/09/18 21:08 96 Nasal Cannula 2.00 03/09/18 20:50 97.8 87 18 128/77 (94) 95 I/O 03/09/18 03/09/18 03/09/18 03/10/18 03/10/18 03/10/18 07:00 15:00 23:00 07:00 15:00 23:00 Intake Total 500 ml 480 ml 312 ml Output Total 1150 ml 700 ml 600 ml Balance -650 ml -220 ml -600 ml 312 ml Intake Oral 500 ml 480 ml IV Total 312 ml Output Urine Total 1150 ml 700 ml 600 ml Result Diagram: 03/08/18 0810 03/10/18 1357 Objective Remarks GENERAL: SKIN: Warm and dry. HEAD: Atraumatic. Normocephalic. EYES: Pupils equal and round. No scleral icterus. No injection or drainage. ENT: No nasal bleeding or discharge. Mucous membranes pink and moist. NECK: Trachea midline. No JVD. CARDIOVASCULAR: Regular rate and rhythm. RESPIRATORY: No accessory muscle use. Clear to auscultation. Breath sounds equal bilaterally. GASTROINTESTINAL: Abdomen soft, non-tender, nondistended. Hepatic and splenic margins not palpable. MUSCULOSKELETAL: Extremities without clubbing, cyanosis, or edema. No obvious deformities. LEFT AKA NEUROLOGICAL: Awake and alert. No obvious cranial nerve deficits. Motor grossly within normal limits. Five out of 5 muscle strength in the arms and legs. Normal speech. PSYCHIATRIC: Appropriate mood and affect; insight and judgment normal. Assessment and Plan Assessment and Plan IMPRESSION RESPIRATORY FAILURE JYOTSNA COPD OBESITY PLAN DECLINES PAP THERAPY BRONCHODILATORS O2 NEEDED LOOSE WT HOME SOON Terese Gduino MD Mar 10, 2018 17:20
[2018-03-10 17:40] LABS: BACTERIA, URINE FEW /hpf; BILIRUBIN, URINE NEG (NEG); BLOOD, URINE LARGE (NEG); GLUCOSE,URINE >=500 mg/dL (NEG); KETONE, URINE NEG (NEG); MUCUS URINE FEW /lpf (OCC); NITRITE,URINE NEG (NEG); SQUAMOUS EPITHELIAL CELL URINE <1 /hpf (0-5); URINE COLOR YELLOW (YELLW/STRAW); URINE LEUKOCYTE ESTERASE SMALL (NEG)
[2018-03-10] MEDS: PRAVASTATIN SOD 20 MG TAB PO SCH (20:16)
[2018-03-11] MEDS: RESP: ALBUTEROL 2.5 MG/IPRATROPIUM 0.5 MG NEB (SCH) NEB ×5 (00:12→15:13)
[2018-03-11 00:40] VITALS: BP 125/65; PULSE 88; RESP 19; TEMP 97.6; O2SAT 95
[2018-03-11] MEDS: methylPREDNISolone SOD SUCC 40 MG/1 ML VIAL IV PUSH SCH (01:43)
[2018-03-11] MEDS: ACETAMINOPHEN/HYDROcodone 325 MG/5 MG TAB PO PRN ×3 (02:30→12:20)
[2018-03-11] MEDS: HYDROmorphone HCL PF 2 MG/ML VIAL IV PRN ×2 (02:30→09:50)
[2018-03-11 05:00] VITALS: BP 127/60; PULSE 75; RESP 19; TEMP 98; O2SAT 97
[2018-03-11] MEDS: glipiZIDE 10 MG TAB PO SCH (06:41)
[2018-03-11 07:56] VITALS: O2SAT 96
[2018-03-11 08:00] VITALS: BP 117/56; PULSE 71; PULSE 72; RESP 20; TEMP 98.1; O2SAT 95
[2018-03-11] MEDS: DILTIAZEM-CD 240 MG CAP ER PO SCH (08:14)
[2018-03-11] MEDS: PRIMIDONE 50 MG TAB PO SCH ×2 (08:14→12:20)
[2018-03-11] MEDS: PREGABALIN 100 MG CAP PO SCH (08:14)
[2018-03-11] MEDS: ASPIRIN 81 MG CHEW TAB CHEW SCH (08:15)
[2018-03-11] MEDS: LISINOPRIL 10 MG TAB PO SCH (08:15)
[2018-03-11] MEDS: PANTOPRAZOLE SOD 20 MG DELAYED RELEASE TAB PO SCH (08:15)
[2018-03-11] MEDS ORDERED: LEVEMIR SQ (08:58)
[2018-03-11] MEDS ORDERED: SODIUM CHLORIDE 0.9% FLUSH 10 ML FLUSH IV FLUSH SCH (09:00)
[2018-03-11] MEDS ORDERED: cefTRIAXone INJ 2,000 MG in SODIUM CHLORIDE 0.9% INJ 100 ML IV SCH (09:00)
[2018-03-11] MEDS ORDERED: PRED20 PO (09:00)
[2018-03-11] MEDS ORDERED: EPIN1INJ21 IV PUSH (09:10)
[2018-03-11] MEDS ORDERED: SOLU250I IV PUSH (09:10)
[2018-03-11] MEDS ORDERED: EPIN1INJ21 SQ (09:10)
[2018-03-11] MEDS ORDERED: CEFTINJ2 IV (09:15)
--- NOTE | 2018-03-11 09:18 | HHI.DS ---
Discharge Summary Admission Date Mar 04, 2018 at 13:19 Discharge Date: Mar 11, 2018 Admitting Diagnosis AMS,R leg cellulitis,morbid obesity (1) Acute encephalopathy ICD Code: G93.40 - Encephalopathy, unspecified Diagnosis: Principal Status: Acute (2) Cellulitis of right leg ICD Code: L03.115 - Cellulitis of right lower limb Diagnosis: Secondary Status: Acute (3) Acute and chronic respiratory failure ICD Code: J96.20 - Acute and chronic respiratory failure, unspecified whether with hypoxia or hypercapnia Diagnosis: Principal Status: Acute (4) Hypertension ICD Code: I10 - Hypertension Status: Chronic (5) E-coli UTI ICD Code: N39.0 - Urinary tract infection, site not specified; B96.20 - Unspecified Escherichia coli [E. coli] as the cause of diseases classified elsewhere Diagnosis: Secondary Procedures None Brief History - From Admission patient is a 62 y/o male with multiple comorbidities including Diabetes Mellitus ,Chronic right leg lymphedema ,Recurrent cellulitis,Recurrent DVTs, Hyperlipidemia,Atrial fibrillation,Cardiomyopathy,Congestive heart failure, Coronary artery disease,Multiple CVAs and TIAs,Endocarditis,Hypertension,COPD who was brought to ER with altered mental status. information is limited due to his mental status. however as per the ER physician, the patient was found on the floor near his bed. CBC/BMP: 03/08/18 0810 03/10/18 1357 Significant Findings Laboratory Tests Test 03/09/18 07:20 03/10/18 13:57 03/10/18 17:00 03/11/18 06:40 Prothrombin Time 30.6 SEC (9.8-11.6) 21.6 SEC (9.8-11.6) Estimat Glomerular Filtration Rate 74 ML/MIN (>89) Urine Turbidity HAZY (CLEAR) Urine Occult Blood LARGE (NEG) Urine Leukocyte Esterase SMALL (NEG) Urine RBC 93 /hpf (0-3) Urine WBC 54 /hpf (0-5) Urine Bacteria FEW /hpf (NONE) Urine Mucus FEW /lpf (OCC) PE at Discharge GENERAL: This is a well-nourished, obese, well-developed patient, in no apparent distress. CARDIOVASCULAR: Regular rate and rhythm without murmurs, gallops, or rubs. RESPIRATORY: Relatively clear to auscultation bilaterally GASTROINTESTINAL: Abdomen soft, non-tender, nondistended. Normal active bowel sounds, Barlow in place MUSCULOSKELETAL: Chronic venous stasis dermatitis changes with peeling of the skin with 2+ edema NEURO: Alert & Oriented x3 to person, place, time. Moves all ext x4 Pt update on day of discharge Patient states that [facility] will [facility]. Breathing doing well. Barlow was removed this morning. No other complaints at this time. Hospital Course These are the medical issues addressed during this hospitalization: 1. Acute metabolic encephalopathy now resolved: Likely secondary to hypercapnia. Improved significantly. Head CT shows no acute abnormality. EEG showed encephalopathy. Appreciate neurology recommendations. 2. Chronic right lower extremity lymphedema, cellulitis: Continue IV antibiotics Zosyn and vancomycin. Patient is clinically improved, continue wound care. Patient refuses anybody touching his right lower leg and declined Lac-Hydrin lotion to the area as recommended. 3. Bacteremia: 1 bottle positive for staph hominis. Likely contamination. 4. Acute on chronic respiratory failure, COPD exacerbation: Continue Symbicort. Continue nebulizer treatments. Continue IV steroids and wean as tolerated to p.o. prednisone taper upon discharge. Appreciate pulmonology, Dr. Sanchez's recommendations. Patient is on 2 L of oxygen continuously at home. Patient has refused CPAP during hospitalization. 5. Diabetes mellitus type II: Poorly controlled due to being on steroids. Restart glipizide. Monitor Accu-Cheks and cover with sliding scale insulin. Increased to medium scale today. Add Levemir to the regimen and increase to 30 units subcu twice daily 6. Recurrent DVTs: INR monitored by pharmacy to dose Coumadin. Resume home Coumadin dose 7. Atrial fibrillation: Anticoagulation with Coumadin. Continue Cardizem for rate control. 8. Chronic diastolic congestive heart failure: Not in acute exacerbation. Continue home medications. 9. Hypertension, chronic essential: Continue home medications. 10. UTI: Multidrug resistant E. coli. Given Zosyn 7 days and transition over to ceftriaxone 2 g IV for 7 more days per infectious disease, Dr. Garcia. Patient refuses to have Barlow catheter removed despite counseling and risks of recurrent infection during hospitalization on day of discharge finally consented to have Barlow catheter removed. At this time, patient has gained maximum benefit from hospitalization ready to be discharged to home with PICC line and 7 more days of ceftriaxone 2 g IV to complete antibiotic course. Pt Condition on Discharge: Good Discharge Disposition: Disch w/ Home Health Serv Discharge Time: <= 30 minutes Discharge Instructions DIET: Follow Instructions for: Heart Healthy Diet Activities you can perform: Regular-No Restrictions Follow up Referrals: PCP Follow-up - 1 Week New Medications: Insulin Detemir Inj (Levemir Inj) 1,000 unit/ 10 ML Vial 30 UNITS SQ BID for Blood Sugar Management, #30 VIAL 0 Refills Do not mix with any other Insulin. Prednisone (Prednisone) 20 Mg Tab 20 MG PO DIRECTED for Inflammation, #9 TAB 0 Refills 20 MG twice a day x 2 days, then 20 MG daily x 2 days, then 10 MG daily x 3 days Continued Medications: Aspirin (Aspirin) 81 Mg Chew 81 MG CHEW DAILY, TAB 0 Refills Diltiazem CD 24 HR (Diltiazem CD 24 HR) 240 Mg Caper 240 MG PO DAILY, #30 CAP 0 Refills Diphenhydramine (Diphenhydramine) 25 Mg Cap 25 MG PO HS PRN for INSOMNIA, CAP 0 Refills Ferrous Sulfate (Ferrous Sulfate) 325 Mg (65 Mg Iron) Tablet 325 MG PO TIDPC for Nutritional Supplement, #90 TAB 0 Refills Folic Acid (Folic Acid) 0.8 Mg Tab 1000 MCG PO DAILY for Nutritional Supplement, TAB 0 Refills Glipizide (Glipizide) 10 Mg Tab 20 MG PO BID for Blood Sugar Management, #60 TAB 0 Refills Take 30 minutes before a meal Lisinopril (Lisinopril) 10 Mg Tab 10 MG PO DAILY for Blood Pressure Management, #30 TAB Metformin (Glucophage) 500 Mg Tab 1000 MG PO BIDPC for DM for 30 Days, TAB Pantoprazole (Protonix) 20 Mg Tab 20 MG PO DAILY for Reflux, #14 TAB 0 Refills Pravastatin (Pravastatin) 20 Mg Tab 20 MG PO HS for Cholesterol Management, #30 TAB 0 Refills Pregabalin (Lyrica) 100 Mg Cap 100 MG PO Q12HR for neuropathy, #60 CAP Primidone (Primidone) 50 Mg Tab 50 MG PO TID for Control Seizures, #60 TAB 0 Refills Spironolactone (Spironolactone) 25 Mg Tab 25 MG PO DAILY, #30 TAB 0 Refills Venlafaxine ER 24 HR (Venlafaxine ER 24 HR) 150 Mg Tab 300 MG PO DAILY, #30 TAB 0 Refills Warfarin (Coumadin) 5 Mg Tab 5 MG PO DAILY@1600 for DVT for 30 Days, TAB 3 Refills [Albuterol-Ipratropium Neb] () 1 AMPULE NEBU 1 AMPULE INH Q6HR for COPD for 30 Days [Budeson-Formot 160-4.5 Mcg Inh] () 60 PUFF AERO 2 PUFF INH Q12HR for COPD for 30 Days, #1 Discontinued Medications: Prednisone (Prednisone) 5 Mg Tab 5 MG PO BID for COPD, #23 TAB 0 Refills take 3 tabs bid x 2 days starting then 2 tabs bid x 2 dasy then 1 tab po daily x 3 days then DC Janay Estrada MD Mar 11, 2018 09:18
[2018-03-11] MEDS ORDERED: predniSONE 20 MG TAB PO SCH (09:30)
--- NOTE | 2018-03-11 09:47 | HHI.FF ---
Face to Face Verification Diagnosis: (1) Acute and chronic respiratory failure (2) E-coli UTI (3) Acute encephalopathy Physical Therapy Order: Evaluate and Treat Home Health Nursing Order: Medical education Diabetic education IV medication administration I have seen patient Jorge Alberto Contreras on 03/11/18. My clinical findings support the need for the requested home health care services because: Ltd mobility - disease progression I certify that my clinical findings support that this patient is homebound because: Unsteady gait/balance Janay Estrada MD Mar 11, 2018 09:47
[2018-03-11] MEDS: INSULIN ASPART SUPPLEMENTAL SCALE SQ SCH (09:49)
[2018-03-11] MEDS: INSULIN DETEMIR 100 UNITS/ML VIAL SQ SCH (09:49)
[2018-03-11] MEDS: BUDESONIDE-FORMOTEROL 160/4.5 MCG INHALER INH SCH (09:53)
--- NOTE | 2018-03-11 10:05 | HHI.FF ---
Infusion Therapy Location of Infusion Therapy: Home Health Care IV Infusion Order Patient Information Patient Weight 64 kg Diagnosis: Diagnosis cellulitis RLE./E.Coli UTI. Coded Allergies: MRI PRECAUTION (Verified Allergy, Severe, ANEURSYM CLIPPING, 03/04/18) diatrizoate meglumine (Unverified Allergy, Severe, SHOCK, 03/04/18) gadobenic acid (Unverified Allergy, Severe, SHOCK, 03/04/18) gadodiamide (Unverified Allergy, Severe, SHOCK, 03/04/18) gadoteridol (Unverified Allergy, Severe, SHOCK, 03/04/18) iodine (Unverified Allergy, Severe, 03/04/18) iodixanol (Unverified Allergy, Severe, SHOCK, 03/04/18) iohexol (Unverified Allergy, Severe, SHOCK, 03/04/18) potassium iodide (Unverified Allergy, Severe, 03/04/18) povidone-iodine (Unverified Allergy, Severe, 03/04/18) sodium iodide (Unverified Allergy, Severe, 03/04/18) sodium iodide (Unverified Allergy, Severe, 03/04/18) Administer Medication Ceftriaxone 2 grams IV q 24 hours Stop Treatment: Mar 17, 2018 Additional Information Venous access: PICC Line Additional Instructions [x] Peripheral flush and dressing changes per protocol [x] Implanted port and central cupola liner: * Implanted port: 10 ml Normal Saline followed by 5 ml Heparin 100 units/ml Heparin flush after each use and monthly to maintain. [] May leave port accessed during therapy. [] May leave peripheral site accessed for duration of therapy. [x] If patient has SOB or respiratory distress, check oxygen saturation. If less than 90% or clinical signs of respiratory distress, administer oxygen at 2 L/min. via nasal cannula and notify physician. [x] Anaphylaxis/Reaction orders: * Stop infusion. * Keep IV line open with saline flush. * Notify physician. * Monitor vital signs every 15 minutes until symptoms resolve. * Check Oxygen saturation; Oxygen at 2 L/min. via nasal cannula if less than 90% or clinical signs of respiratory distress. * Administer diphenhydramine (Benadryl) 25 mg IV STAT, (unless patient has received as pre-med). May repeat once, if necessary. * Solu-Cortef 250 mg IVP over 30-60 seconds, use 100 mg vials for each dissolution. * Epinephrine (1mg/1 ml) 0.3 mg subcutaneously or IVP now with any signs of respiratory distress. * Check with physician for new additional pre-med orders if patient is re- challenged or re-treated. [x] May remove PICC line when treatment complete, after confirming with Physician. [x] If the patient is admitted to the hospital, the ED, or transferred via [facility] , complete transfer form including medication reconciliation order sheet. Laboratory Tests Additional Information Remove PICC LINE at end of therapy. Tino Garcia MD Mar 11, 2018 10:05
[2018-03-11 10:16] LABS: INTERNATIONAL NORMALIZED RATIO 1.7 RATIO; PROTHROMBIN TIME - PATIENT 17.2 SEC (9.8-11.6)
[2018-03-11 11:59] VITALS: BP 122/60; PULSE 78; RESP 20; TEMP 98.2; O2SAT 94
--- NOTE | 2018-03-11 12:37 | PQ ---
Physician Query Response Document PATIENT: SISSY SEQUEIRA : 1955 ADMIT DATE: 03/04/2018 1:19 PM DISCH DATE: RESPONDING PROVIDER #: [email or web address] QUERY TEXT: CDS Clarification Sepsis in the setting of Acute Encephalopathy 2ndary to UTI and cellulitis requiring treatment with IV Vancomycin, IV Zosyn, Neurology consult Other explanation of clinical findings. Unable to determine (no explanation for clinical findings). The patient's Clinical Indicators include: The medical record reflects the following clinical findings, treatment, and risk factors. * Clinical Indicators:WBC 13.3 HR 95-105 Cellulitis RLE, UTI-> E coli, Blood cultures -> 1 btl Aerobi c: Staphylococcus Hominis-Hominis * Risk Factors: Acute encephalopathy 2nd to UTI, Cellulitis RLE * Treatment:IV Vancomycin, IV Zosyn, Neurology consult Please clarify and document your clinical opinion in the progress notes and discharge summary includi ng the definitive and/or presumptive diagnosis (suspected or probable), related to the above clinical findings. Please include clinical findings supporting your diagnosis. Thank you, Nat Paez : CDS/RN ext. [phone] Query created by: Nat Paez on 03/07/2018 10:01 AM RESPONSE TEXT: Sepsis due to cellulitis. Electronically signed by: Zachery Flores MD 03/11/2018 12:33 PM
[2018-03-17] MEDS ORDERED: cefTRIAXone INJ 2,000 MG in SODIUM CHLORIDE 0.9% INJ 100 ML IV SCH (13:00)
== END 2018-03-11 15:38 | disposition home health service (06) | DRG 871 ==
LOC: NEPC 07:53 → NEDA 13:19 → HIME 14:45 → N05B 03-08 17:44
PROVIDERS: ADMIT Family Medicine; ATTEND Family Medicine
DX: A41.9 Sepsis, unspecified organism (principal); G93.41 Metabolic encephalopathy; J96.21 Acute and chronic respiratory failure with hypoxia; E87.2 Acidosis; I11.0 Hypertensive heart disease with heart failure; Z68.41 Body mass index [BMI] 40.0-44.9, adult; I42.9 Cardiomyopathy, unspecified; I50.32 Chronic diastolic (congestive) heart failure; J96.22 Acute and chronic respiratory failure with hypercapnia; J44.1 Chronic obstructive pulmonary disease with (acute) exacerbation; L03.115 Cellulitis of right lower limb; N39.0 Urinary tract infection, site not specified; E11.65 Type 2 diabetes mellitus with hyperglycemia; E66.01 Morbid (severe) obesity due to excess calories; B96.20 Unspecified Escherichia coli [E. coli] as the cause of diseases classified elsewhere; E78.5 Hyperlipidemia, unspecified; F17.290 Nicotine dependence, other tobacco product, uncomplicated; G47.33 Obstructive sleep apnea (adult) (pediatric); I25.10 Atherosclerotic heart disease of native coronary artery without angina pectoris; I48.2 Chronic atrial fibrillation; I87.8 Other specified disorders of veins; I89.0 Lymphedema, not elsewhere classified; M19.90 Unspecified osteoarthritis, unspecified site; R41.3 Other amnesia; R79.1 Abnormal coagulation profile; Z16.24 Resistance to multiple antibiotics; Z79.01 Long term (current) use of anticoagulants; Z86.718 Personal history of other venous thrombosis and embolism; Z91.19 Patient's noncompliance with other medical treatment and regimen; Z99.81 Dependence on supplemental oxygen; Z89.612 Acquired absence of left leg above knee; Z79.84 Long term (current) use of oral hypoglycemic drugs; Z86.73 Personal history of transient ischemic attack (TIA), and cerebral infarction without residual deficits; I25.2 Old myocardial infarction
CPT/HCPCS: 36600; 51702; 70450; 71045; 80048; 80053; 80202; 80307; 81001; 82140; 82550; 82565; 82607; 82746; 82805; 82948; 83605; 84425; 84443; 85025; 85610; 87040; 87077; 87086; 87186; 87205; 87641; 93005; 93971; 94002; 94640; 94664; 95819; 96365; 96366; 96375; J0696; J1170; J1815; J2543; J2920; J2930; J2997; J3370; J7030; J7040; J7050; J7512

== ENCOUNTER 2018-04-13 12:53 | Observation (INO) ==
--- NOTE | 2018-04-13 13:08 | ED ---
HPI General Chief Complaint: Altered Mental Status Stated Complaint: Medical Time Seen by Provider: 04/13/18 12:57 Source: EMS and old records reviewed Mode of arrival: EMS Limitations: altered mental status History of Present Illness HPI narrative: The patient is 63-year-old male with multiple medical problems including lymphadenitis as well as left BKA was brought in by EMS for altered mental status appearing the patient is supposed to be on home O2 but he was seen on his motorized wheelchair without it causing off and being less responsive than usual. MD complaint: altered mental status Timing confirmed by: family member Related Data Home Medications Medication Instructions Recorded Confirmed aspirin [Aspir-Low] 81 mg PO DAILY 03/16/18 03/16/18 ceftriaxone 2 g IV Q24H 03/16/18 03/16/18 diltiazem HCl 240 mg PO DAILY 03/16/18 03/16/18 diphenhydramine HCl 50 mg PO BID PRN 03/16/18 03/16/18 duloxetine 30 mg PO TID 03/16/18 03/16/18 ferrous sulfate 324 mg PO TID 03/16/18 03/16/18 folic acid 1 mg PO DAILY 03/16/18 03/16/18 glipizide 10 mg PO BID 03/16/18 03/16/18 metformin 500 mg PO BID 03/16/18 03/16/18 omeprazole 20 mg PO DAILY 03/16/18 03/16/18 pravastatin 40 mg PO DAILY 03/16/18 03/16/18 spironolactone 25 mg PO DAILY 03/16/18 03/16/18 warfarin 5 mg PO [id number] 03/16/18 03/16/18 warfarin 7.5 mg PO MOFR 03/16/18 03/16/18 Previous Rx's Medication Instructions Recorded warfarin [Coumadin] See Label Instructions .ROUTE 03/16/18 .COMPLEX #30 tab Allergies Allergy/AdvReac Type Severity Reaction Status Date / Time diatrizoate meglumine Allergy Severe SHOCK Verified 04/13/18 12:59 gadobenic acid Allergy Severe SHOCK Verified 04/13/18 12:59 gadodiamide Allergy Severe SHOCK Verified 04/13/18 12:59 gadoteridol Allergy Severe SHOCK Verified 04/13/18 12:59 iodine Allergy Severe Difficulty Verified 04/13/18 12:59 Breathing iodixanol Allergy Severe SHOCK Verified 04/13/18 12:59 iohexol Allergy Severe SHOCK Verified 04/13/18 12:59 potassium iodide Allergy Severe Difficulty Verified 04/13/18 12:59 Breathing povidone-iodine Allergy Severe Difficulty Verified 04/13/18 12:59 Breathing sodium iodide Allergy Severe Difficulty Verified 04/13/18 12:59 Breathing sodium iodide Allergy Severe Difficulty Verified 04/13/18 12:59 Breathing MRI PRECAUTION Allergy Severe ANEURSYM Uncoded 04/13/18 12:59 [facility] Medical History Medical History Complete below knee amputation of left lower extremity (Acute) Depression (Acute) Hypertension (Acute) Stroke (Acute) Myocardial infarct (Acute) Hyperlipidemia (Acute) DVT (deep venous thrombosis) (Acute) Diabetes (Acute) Social History Social History Substance History: Unable to Obtain Second Hand Smoke Exposure: No Smoking Status: Unknown if ever smoked Tobacco Type: Cigarettes How Often Do You Have a Drink Containing Alcohol: Unable to Obtain Recent Travel in [facility] within the Last 8 Weeks: No Recent Out of Country Travel within the Last 8 Weeks: No Immunization History Tetanus Immunization: Unable to Assess Hx Influenza Vaccine This Season: Unable to Assess Exam Narrative Exam Narrative: GENERAL:Confused awake response to questions after being prompted several times SKIN: Right lower extremity with lymphedema changes. Dry scaly. No signs of cellulitis at this time. HEAD: Atraumatic. Normocephalic. EYES: Pupils equal and round. No scleral icterus. No injection or drainage. ENT: No nasal bleeding or discharge. Mucous membranes pink and moist. NECK: Trachea midline. No JVD. CARDIOVASCULAR: Regular rate and rhythm. No murmur appreciated. RESPIRATORY: Shallow breathing with coarse sounds bilaterally suggestive fluid overload. Shallow breathing. GASTROINTESTINAL: Abdomen soft, non-tender, nondistended. Hepatic and splenic margins not palpable. MUSCULOSKELETAL: No obvious deformities. No clubbing. No cyanosis. No edema. NEUROLOGICAL: Awake . No obvious cranial nerve deficits. Motor grossly within normal limits. Normal speech. PSYCHIATRIC: Appropriate mood and affect; insight and judgment normal. Course Hospital Course: Was admitted for further treatment.Patient with hypoxemia and hypercapnia likely 1 of the reasons of his mental status. No leukocytosis or lactic acidosis however he does have a urinary tract infection for which she received antibiotics. Was placed on BiPAP for several hours marked improvement of his mentation and on reevaluation was alert and oriented feeling much better. CT head unremarkable. Initial Documented Vital Signs Temperature 97.7 F 04/13/18 12:56 Pulse Rate 78 04/13/18 12:56 Respiratory Rate 16 04/13/18 12:56 Blood Pressure 149/65 H 04/13/18 12:56 Last Documented Vital Signs Temperature 98.6 F 04/13/18 18:00 Pulse Rate 78 04/13/18 18:00 Respiratory Rate 18 04/13/18 18:00 Blood Pressure 172/70 H 04/13/18 18:00 Pulse Oximetry 100 04/13/18 18:00 Medical Decision Making MDM Narrative Medical decision making narrative: Patient with toxic metabolic encephalopathy multifactorial likely secondary to his urinary tract infection as well as hypoxemia with hypercapnia. Improve markedly with fluids oxygenation and IV antibiotics. Will be admitted for further evaluation. Lab Data Lab results reviewed: Yes I reviewed the patient's lab results. Result diagrams: 04/13/18 13:10 04/13/18 13:10 Lab Results 04/13/18 04/13/18 04/13/18 Range/Units 13:10 13:10 13:10 WBC 10.1 (4.0-11.0) th/mm3 RBC 4.48 L (4.50-5.90) mil/mm3 Hgb 10.9 L (13.0-17.0) gm/dL Hct 35.0 L (39.0-51.0) % MCV 78.2 L (80.0-100.0) fL MCH 24.3 L (27.0-34.0) pg MCHC 31.0 L (32.0-36.0) % RDW 19.7 H (11.6-17.2) % Plt Count 286 (150-450) th/mm3 MPV 8.2 (7.0-11.0) fL Neut % (Auto) 69.6 (16.0-70.0) % Lymph % (Auto) 20.9 (9.0-44.0) % Kings % (Auto) 6.3 (0.0-8.0) % Eos % (Auto) 1.9 (0.0-4.0) % Baso % (Auto) 1.3 (0.0-2.0) % Neut # (Auto) 7.0 (1.8-7.7) th/mm3 Lymph # (Auto) 2.1 (1.0-4.8) th/mm3 Kings # (Auto) 0.6 (0.0-0.9) th/mm3 Eos # (Auto) 0.2 (0.0-0.4) th/mm3 Baso # (Auto) 0.1 (0.0-0.2) th/mm3 WBC Differential . Differential Comment Auto diff final PT 11.8 H (9.8-11.6) sec INR 1.2 Ratio APTT 28.0 (24.3-30.1) sec Puncture Site Patient Temperature O2 Saturation (90-100) % ABG pH (7.380-7.420) ABG pCO2 (38-42) mmHg ABG pO2 (61-120) mmHg ABG HCO3 (22-26) mmol/L ABG O2 Content (12.0-20.0) Vol % ABG Base Excess (-2-2) mmol/L ABG Methemoglobin (0-2) % Allan Test Hemoglobin (12.0-16.0) G/DL Carboxyhemoglobin (0-4) % O2 Delivery Device Vent Setting Inspired O2 % Critical Value Sodium 139 (136-145) meq/L Potassium 4.2 (3.5-5.1) meq/L Chloride 102 (98-107) meq/L Carbon Dioxide 33.6 H (21.0-32.0) meq/L Anion Gap 3 L (5-15) meq/L BUN 12 (7-18) mg/dL Creatinine 0.97 (0.60-1.30) mg/dL Estimated GFR 78 L (>89) mL/min Random Glucose 153 H (74-106) mg/dL Lactic Acid (0.4-2.0) mmol/L Calcium 8.6 (8.5-10.1) mg/dL Total Bilirubin 0.5 (0.2-1.0) mg/dL AST 12 L (15-37) U/L ALT 11 L (12-78) U/L Alkaline Phosphatase 57 (45-117) U/L Troponin I Less than 0.02 L (0.02-0.05) ng/mL B-Natriuretic Peptide (0-100) pg/mL Total Protein 8.2 (6.4-8.2) g/dL Albumin 3.3 L (3.4-5.0) g/dL Urine Color (Yellw/Straw) Urine Clarity (Clear) Urine pH (5.0-8.5) Ur Specific [place] (1.002-1.035) Urine Protein (Neg-Trace) mg/dL Urine Glucose (UA) (Negative) mg/dL Urine Ketones (Negative) mg/dL Urine Occult Blood (Negative) Urine Nitrate (Negative) Urine Bilirubin (Negative) Urine Urobilinogen (Less than 2) mg/dL Ur Leukocyte Esterase (Negative) Urine RBC (0-3) /hpf Urine WBC (0-5) /hpf Ur Squamous Epith Cells (0-5) /hpf Hyaline Casts (0-3) /lpf Urine Mucus (Occasional) /lpf Micro UA Comment Urine Culture Comments 04/13/18 04/13/18 04/13/18 Range/Units 13:10 13:10 16:00 WBC (4.0-11.0) th/mm3 RBC (4.50-5.90) mil/mm3 Hgb (13.0-17.0) gm/dL Hct (39.0-51.0) % MCV (80.0-100.0) fL MCH (27.0-34.0) pg MCHC (32.0-36.0) % RDW (11.6-17.2) % Plt Count (150-450) th/mm3 MPV (7.0-11.0) fL Neut % (Auto) (16.0-70.0) % Lymph % (Auto) (9.0-44.0) % Kings % (Auto) (0.0-8.0) % Eos % (Auto) (0.0-4.0) % Baso % (Auto) (0.0-2.0) % Neut # (Auto) (1.8-7.7) th/mm3 Lymph # (Auto) (1.0-4.8) th/mm3 Kings # (Auto) (0.0-0.9) th/mm3 Eos # (Auto) (0.0-0.4) th/mm3 Baso # (Auto) (0.0-0.2) th/mm3 WBC Differential Differential Comment PT (9.8-11.6) sec INR Ratio APTT (24.3-30.1) sec Puncture Site Right radial Patient Temperature 98.6 O2 Saturation 91 (90-100) % ABG pH 7.38 (7.380-7.420) ABG pCO2 53 H* (38-42) mmHg ABG pO2 73 (61-120) mmHg ABG HCO3 31 H (22-26) mmol/L ABG O2 Content 13.8 (12.0-20.0) Vol % ABG Base Excess 5.7 H (-2-2) mmol/L ABG Methemoglobin 0.7 (0-2) % Allan Test Present Hemoglobin 10.7 L (12.0-16.0) G/DL Carboxyhemoglobin 1.8 (0-4) % O2 Delivery Device Bipap Vent Setting [id number] Inspired O2 35 % Critical Value Yes Sodium (136-145) meq/L Potassium (3.5-5.1) meq/L Chloride (98-107) meq/L Carbon Dioxide (21.0-32.0) meq/L Anion Gap (5-15) meq/L BUN (7-18) mg/dL Creatinine (0.60-1.30) mg/dL Estimated GFR (>89) mL/min Random Glucose (74-106) mg/dL Lactic Acid 1.0 (0.4-2.0) mmol/L Calcium (8.5-10.1) mg/dL Total Bilirubin (0.2-1.0) mg/dL AST (15-37) U/L ALT (12-78) U/L Alkaline Phosphatase (45-117) U/L Troponin I (0.02-0.05) ng/mL B-Natriuretic Peptide 23 (0-100) pg/mL Total Protein (6.4-8.2) g/dL Albumin (3.4-5.0) g/dL Urine Color (Yellw/Straw) Urine Clarity (Clear) Urine pH (5.0-8.5) Ur Specific [place] (1.002-1.035) Urine Protein (Neg-Trace) mg/dL Urine Glucose (UA) (Negative) mg/dL Urine Ketones (Negative) mg/dL Urine Occult Blood (Negative) Urine Nitrate (Negative) Urine Bilirubin (Negative) Urine Urobilinogen (Less than 2) mg/dL Ur Leukocyte Esterase (Negative) Urine RBC (0-3) /hpf Urine WBC (0-5) /hpf Ur Squamous Epith Cells (0-5) /hpf Hyaline Casts (0-3) /lpf Urine Mucus (Occasional) /lpf Micro UA Comment Urine Culture Comments 04/13/18 Range/Units 17:06 WBC (4.0-11.0) th/mm3 RBC (4.50-5.90) mil/mm3 Hgb (13.0-17.0) gm/dL Hct (39.0-51.0) % MCV (80.0-100.0) fL MCH (27.0-34.0) pg MCHC (32.0-36.0) % RDW (11.6-17.2) % Plt Count (150-450) th/mm3 MPV (7.0-11.0) fL Neut % (Auto) (16.0-70.0) % Lymph % (Auto) (9.0-44.0) % Kings % (Auto) (0.0-8.0) % Eos % (Auto) (0.0-4.0) % Baso % (Auto) (0.0-2.0) % Neut # (Auto) (1.8-7.7) th/mm3 Lymph # (Auto) (1.0-4.8) th/mm3 Kings # (Auto) (0.0-0.9) th/mm3 Eos # (Auto) (0.0-0.4) th/mm3 Baso # (Auto) (0.0-0.2) th/mm3 WBC Differential Differential Comment PT (9.8-11.6) sec INR Ratio APTT (24.3-30.1) sec Puncture Site Patient Temperature O2 Saturation (90-100) % ABG pH (7.380-7.420) ABG pCO2 (38-42) mmHg ABG pO2 (61-120) mmHg ABG HCO3 (22-26) mmol/L ABG O2 Content (12.0-20.0) Vol % ABG Base Excess (-2-2) mmol/L ABG Methemoglobin (0-2) % Allan Test Hemoglobin (12.0-16.0) G/DL Carboxyhemoglobin (0-4) % O2 Delivery Device Vent Setting Inspired O2 % Critical Value Sodium (136-145) meq/L Potassium (3.5-5.1) meq/L Chloride (98-107) meq/L Carbon Dioxide (21.0-32.0) meq/L Anion Gap (5-15) meq/L BUN (7-18) mg/dL Creatinine (0.60-1.30) mg/dL Estimated GFR (>89) mL/min Random Glucose (74-106) mg/dL Lactic Acid (0.4-2.0) mmol/L Calcium (8.5-10.1) mg/dL Total Bilirubin (0.2-1.0) mg/dL AST (15-37) U/L ALT (12-78) U/L Alkaline Phosphatase (45-117) U/L Troponin I (0.02-0.05) ng/mL B-Natriuretic Peptide (0-100) pg/mL Total Protein (6.4-8.2) g/dL Albumin (3.4-5.0) g/dL Urine Color Yellow (Yellw/Straw) Urine Clarity Hazy H (Clear) Urine pH 6.0 (5.0-8.5) Ur Specific [place] 1.024 (1.002-1.035) Urine Protein 30 H (Neg-Trace) mg/dL Urine Glucose (UA) Negative (Negative) mg/dL Urine Ketones Negative (Negative) mg/dL Urine Occult Blood Negative (Negative) Urine Nitrate Negative (Negative) Urine Bilirubin Negative (Negative) Urine Urobilinogen Less than 2 (Less than 2) mg/dL Ur Leukocyte Esterase Large H (Negative) Urine RBC 4 H (0-3) /hpf Urine WBC 50 H (0-5) /hpf Ur Squamous Epith Cells 3 (0-5) /hpf Hyaline Casts 7 (0-3) /lpf Urine Mucus Few H (Occasional) /lpf Micro UA Comment Culture indicated Urine Culture Comments Culture indicated Imaging Data Radiologist's impression: Chest X-Ray 04/13/18 12:57 CONCLUSION: No acute cardiopulmonary disease. Head CT 04/13/18 12:57 CONCLUSION: Slight chronic small vessel ischemic and atrophic changes. No appreciable change . ECG Data EKG Prior to Arrival: Yes Interpretation: EKG obtained on 1257 revealed normal sinus rhythm with ventricular rate of 76 bpm normal NM and QTc intervals nonspecific ST-T wave abnormalities no signs of acute ischemia Discharge Plan Discharge Disposition Patient Disposition: 30 Still Patient Discharge Condition Condition: Stable Discharge Details Diagnosis: Altered mental status, Respiratory failure with hypercapnia Physicians Team ED Provider: Jerel Barrios Primary Care Provider: UNKNOWN, Rxs /Orders / Referrals /Forms Prescriptions: No Action diphenhydramine HCl 50 mg Capsule 50 mg PO BID PRN (Reason: Allergy Symptoms) RF: 0 omeprazole 20 mg Capsule,Delayed Release(Dr/Ec) 20 mg PO DAILY RF: 0 duloxetine 30 mg Capsule,Delayed Release(Dr/Ec) 30 mg PO TID RF: 0 ferrous sulfate 324 mg (65 mg iron) Tablet,Delayed Release (Dr/Ec) 324 mg PO TID RF: 0 glipizide 10 mg Tablet 10 mg PO BID RF: 0 diltiazem HCl 240 mg Capsule,Extended Release 24 Hr 240 mg PO DAILY RF: 0 aspirin [Aspir-Low] 81 mg Tablet,Delayed Release (Dr/Ec) 81 mg PO DAILY RF: 0 pravastatin 40 mg Tablet 40 mg PO DAILY RF: 0 spironolactone 25 mg Tablet 25 mg PO DAILY RF: 0 folic acid 1 mg Tablet 1 mg PO DAILY RF: 0 metformin 500 mg Tablet Extended Release 24 Hr 500 mg PO BID RF: 0 ceftriaxone 2 gram Recon Soln 2 g IV Q24H RF: 0 warfarin 7.5 mg Tablet 7.5 mg PO MOFR RF: 0 warfarin 5 mg Tablet 5 mg PO [id number] RF: 0 warfarin [Coumadin] 6 mg tablet See Label Instructions .ROUTE .COMPLEX Qty: 30 RF: 0 Discharge Interventions Interventions: Vital Signs Last Done: 04/13/18 18:00 Status ED Status: With Doctor
[2018-04-13 13:31] LABS: Baso # (Auto) 0.1 th/mm3 (0.0-0.2); Baso % (Auto) 1.3 % (0.0-2.0); Eos # (Auto) 0.2 th/mm3 (0.0-0.4); Eos % (Auto) 1.9 % (0.0-4.0); Hemoglobin 10.9 gm/dL (13.0-17.0); Lymph # (Auto) 2.1 th/mm3 (1.0-4.8); Lymph % (Auto) 20.9 % (9.0-44.0); Mean Corpuscular Hemoglobin 24.3 pg (27.0-34.0); Mean Corpuscular Volume 78.2 fL (80.0-100.0); Mean Platelet Volume 8.2 fL (7.0-11.0); Mono # (Auto) 0.6 th/mm3 (0.0-0.9); Mono % (Auto) 6.3 % (0.0-8.0); Neut % (Auto) 69.6 % (16.0-70.0); Platelet Count 286 th/mm3 (150-450); Red Blood Count 4.48 mil/mm3 (4.50-5.90); Red Cell Distribution Width 19.7 % (11.6-17.2); White Blood Count 10.1 th/mm3 (4.0-11.0)
[2018-04-13 13:40] LABS: INR 1.2 Ratio; Prothrombin Time 11.8 sec (9.8-11.6)
[2018-04-13 13:47] LABS: Alanine Aminotransferase 11 U/L (12-78); Albumin 3.3 g/dL (3.4-5.0); Anion Gap 3 meq/L (5-15); Aspartate Aminotransferase 12 U/L (15-37); Blood Urea Nitrogen 12 mg/dL (7-18); Calcium 8.6 mg/dL (8.5-10.1); Carbon Dioxide 33.6 meq/L (21.0-32.0); Chloride 102 meq/L (98-107); Glomerular Filtration Rate 78 mL/min (>89); Glucose,Random 153 mg/dL (74-106); Potassium 4.2 meq/L (3.5-5.1); Sodium 139 meq/L (136-145)
[2018-04-13 13:50] LABS: Alkaline Phosphatase 57 U/L (45-117); Total Protein 8.2 g/dL (6.4-8.2)
--- NOTE | 2018-04-13 14:30 | XR ---
EXAM DATE: 04/13/2018 2:27 PM EDT AGE/SEX: 63 years / Male INDICATIONS: Shortness of breath. CLINICAL DATA: This is the patient's initial encounter. Patient reports that signs and symptoms have been present for 1 day and indicates a pain score of Nonresponsive. MEDICAL/SURGICAL HISTORY: Non-responsive. Deep venous thrombosis. Hypertension. Diabetes. Hyper lipidemia. Myocardial infarction. Stroke. Non-responsive. Left leg amputation. COMPARISON: [facility] [place], CHEST SINGLE AP, 03/07/2018. . FINDINGS: The lungs are clear without infiltrate, nodule, or mass. There is no appreciable pleural effusion for technique. Heart and mediastinum are unremarkable. Left IJ [place] is present wi th tip overlapping the expected region of the SVC. The examination is very limited due to underpenet ration. Minimal prominence of the interstitial markings in the right lung probably artifactual. CONCLUSION: No acute cardiopulmonary disease. Electronically signed by: Spencer Perez MD 04/13/2018 2:29 PM EDT
--- NOTE | 2018-04-13 15:48 | CT ---
EXAM DATE: 04/13/2018 3:45 PM EDT AGE/SEX: 63 years / Male INDICATIONS: Altered mental status CLINICAL DATA: This is the patient's initial encounter. Patient reports that signs and symptoms have been present for 1 day and indicates a pain score of 0/10. MEDICAL/SURGICAL HISTORY: Diabetes. Hypertension. Stroke. Myocardial infarction, Deep Vein throm bosis None. RADIATION DOSE: 70.75 CTDI (mGy) COMPARISON: [facility] [place], CT HEAD W/O CONTRAST, 03/16/2018. . TECHNIQUE: CT of the head without contrast. Using automated exposure control and adjustment of the mA and/or kV according to patient size, radiation dose was kept as low as reasonably achievable to ob tain optimal diagnostic quality images. DICOM format image data is available electronically for revi ew and comparison. FINDINGS: There is no evidence for intracranial hemorrhage, mass effect, mass lesions, or edema. The visualize d bony structures appear intact. Slight degree of brain atrophy is seen. Slight periventricular whit e matter changes are seen nonspecific mostly consistent with chronic small vessel ischemic changes. There are no signs of acute infarction for technique. There is evidence for prior aneurysm clipping o n the right side not significantly changed CONCLUSION: Slight chronic small vessel ischemic and atrophic changes. No appreciable change . Electronically signed by: Spencer Perez MD 04/13/2018 3:46 PM EDT
[2018-04-13 16:16] LABS: ABG Base Excess 5.7 mmol/L (-2-2); ABG PCO2 53 mmHg (38-42); ABG PO2 73 mmHg (61-120)
[2018-04-13 17:18] LABS: Bilirubin,Urine Negative (Negative); Clarity,Urine Hazy (Clear); Color,Urine Yellow (Yellw/Straw); Glucose,Urine (UA) Negative (Negative); Hyaline Casts,Urine 7 /lpf (0-3); Leukocyte Esterase,Urine Large (Negative); Mucus,Urine Few /lpf (Occasional); Nitrite,Urine Negative (Negative); Specific Gravity,Urine 1.024 (1.002-1.035); Squamous Epithelial Cell,Urine 3 /hpf (0-5)
[2018-04-13] MEDS ORDERED: Bisacodyl 10 MG Supp RECTAL PRN (19:51)
[2018-04-13] MEDS ORDERED: Acetaminophen 325 MG Tablet PO PRN (19:51)
[2018-04-13] MEDS ORDERED: Temazepam 15 MG Capsule PO PRN (19:51)
--- NOTE | 2018-04-13 19:53 | P.HPIM ---
History of Present Illness Primary Care Physician: UNKNOWN History of Present Illness: This is a 63-year-old male with PMH of Depression, HTN, Hyperlipidemia, h/o DVT on Coumadin, Left BKA, COPD, Tobacco Abuse and DM who was brought to the ER by EMS for AMS. Pt initially noted to be lethargic on arrival and placed on BIPAP transiently with improvement. Pt now AA&O and able to provide history. States he normally uses O2 at night, however fell asleep without it, this morning found him "slumped over" on the couch, minimally responsive. On arrival, BP 149 /65, HR 78, O2 sat 94% on 3L NC, Afebrile. ABG with pH 7.38, PCO2 53, PO2 73 at which time he was started on BIPAP, currently on 2L NC w/ O2 sat 94%. Admits to ongoing tobacco abuse, smokes 1/2ppd, down from 3ppd. CBC essentially unremarkable. INR 1.2. Chemistry essentially unremarkable except for GFR 78. Troponin negative. UA positive for UTI. CXR with no acute findings. CT Head negative. S/p Rocephin IV in ER. - Diagnosis (1) Encephalopathy (2) COPD (chronic obstructive pulmonary disease) (3) UTI (urinary tract infection) (4) HTN (hypertension) (5) DM (diabetes mellitus) (6) Chronic anticoagulation (7) Tobacco abuse Review of Systems All other systems reviewed negative except as stated in HPI PMFSH - History History Provided By: Pickler Helper / EMT - Medical History Medical History: Medical History (Last Reviewed 04/13/18 @ 19:33 by Jerel Barrios DO) Complete below knee amputation of left lower extremity (Acute) Depression (Acute) Hypertension (Acute) Stroke (Acute) Myocardial infarct (Acute) Hyperlipidemia (Acute) DVT (deep venous thrombosis) (Acute) Diabetes (Acute) - Tobacco History Second Hand Smoke Exposure: No Tobacco Use In Past 30 Days: No Smoking Status: Unknown if ever smoked Tobacco Type: Cigarettes - Alcohol History How Often Do You Have a Drink Containing Alcohol: Unable to Obtain - Substance Use History Substance History: Unable to Obtain - Travel History Recent Travel in the [place] Within the Last 8 Weeks: No Recent Travel Out of the Country Within the Last 8 Weeks: No - Immunization History Tetanus Immunization: Unable to Assess Hx Influenza Vaccine This Season: Unable to Assess Medications and Allergies Allergies Allergy/AdvReac Type Severity Reaction Status Date / Time diatrizoate meglumine Allergy Severe SHOCK Verified 04/13/18 12:59 gadobenic acid Allergy Severe SHOCK Verified 04/13/18 12:59 gadodiamide Allergy Severe SHOCK Verified 04/13/18 12:59 gadoteridol Allergy Severe SHOCK Verified 04/13/18 12:59 iodine Allergy Severe Difficulty Verified 04/13/18 12:59 Breathing iodixanol Allergy Severe SHOCK Verified 04/13/18 12:59 iohexol Allergy Severe SHOCK Verified 04/13/18 12:59 potassium iodide Allergy Severe Difficulty Verified 04/13/18 12:59 Breathing povidone-iodine Allergy Severe Difficulty Verified 04/13/18 12:59 Breathing sodium iodide Allergy Severe Difficulty Verified 04/13/18 12:59 Breathing sodium iodide Allergy Severe Difficulty Verified 04/13/18 12:59 Breathing MRI PRECAUTION Allergy Severe ANEURSYM Uncoded 04/13/18 12:59 CLIPPING Home Medications Medication Instructions Recorded Confirmed Type albuterol sulfate 0.63 mg INHALATION Q4H 04/13/18 04/13/18 History aspirin [Aspir-81] 81 mg PO DAILY 04/13/18 04/13/18 History diltiazem HCl 240 mg PO DAILY 04/13/18 04/13/18 History insulin glargine 30 unit SUB-Q DAILY 04/13/18 04/13/18 History lisinopril 10 mg PO DAILY 04/13/18 04/13/18 History pantoprazole [Protonix] 20 m PO DAILY 04/13/18 04/13/18 History pregabalin [Lyrica] 100 mg PO BID 04/13/18 04/13/18 History spironolactone 25 mg PO DAILY 04/13/18 04/13/18 History warfarin [Coumadin] 5 mg PO DAILY 04/13/18 04/13/18 History Exam Vital signs: Vital Signs 04/13/18 12:56 04/13/18 13:15 04/13/18 14:08 Temperature 97.7 F Pulse Rate 78 73 Respiratory Rate 16 12 Blood Pressure 149/65 H Pulse Oximetry 99 04/13/18 16:31 04/13/18 18:00 Temperature 98.9 F 98.6 F Pulse Rate 72 78 Respiratory Rate 18 18 Blood Pressure 152/67 H 172/70 H Pulse Oximetry 100 Intake & Output 04/13/18 04/13/18 04/14/18 06:59 18:59 06:59 Weight 145.15 kg Narrative: PE: GENERAL: Very pleasant middle-aged morbidly obese white male in no acute distress. HEENT: PERRLA, EOMI. No scleral icterus or conjunctival pallor. No lid lag or facial droop. CARDIOVASCULAR: Regular rate and rhythm. No obvious murmurs to auscultation. No chest tenderness to palpation. Left chest port in place for IV access. RESPIRATORY: No obvious rhonchi or wheezing. Clear to auscultation. Breath sounds equal bilaterally. GASTROINTESTINAL: Abdomen soft, non-tender, nondistended. BS normal. MUSCULOSKELETAL: Extremities without clubbing, cyanosis, or edema. No obvious deformities. NEUROLOGICAL: Awake, alert and oriented x4. No focal neurologic deficits. Moving both upper and lower extremities spontaneously. Results - Labs CBC & Chem 7: 04/13/18 13:10 04/13/18 13:10 Labs: Short CBC 04/13/18 Range/Units 13:10 WBC 10.1 (4.0-11.0) th/mm3 Hgb 10.9 L (13.0-17.0) gm/dL Hct 35.0 L (39.0-51.0) % Plt Count 286 (150-450) th/mm3 BMP 04/13/18 13:10 Sodium 139 Potassium 4.2 Chloride 102 Carbon Dioxide 33.6 H BUN 12 Creatinine 0.97 Calcium 8.6 Cardiac Enzymes 04/13/18 Range/Units 13:10 Troponin I Less than 0.02 L (0.02-0.05) ng/mL Liver Function 04/13/18 Range/Units 13:10 Total Bilirubin 0.5 (0.2-1.0) mg/dL AST 12 L (15-37) U/L ALT 11 L (12-78) U/L Alkaline Phosphatase 57 (45-117) U/L Albumin 3.3 L (3.4-5.0) g/dL Urine 04/13/18 Range/Units 17:06 Urine Color Yellow (Yellw/Straw) Urine Clarity Hazy H (Clear) Urine pH 6.0 (5.0-8.5) Ur Specific [place] 1.024 (1.002-1.035) Urine Protein 30 H (Neg-Trace) mg/dL Urine Glucose (UA) Negative (Negative) mg/dL - Imaging Impressions Chest X-Ray 04/13/18 12:57 CONCLUSION: No acute cardiopulmonary disease. Head CT 04/13/18 12:57 CONCLUSION: Slight chronic small vessel ischemic and atrophic changes. No appreciable change . Caprini VTE Risk Assessment Caprini VTE Risk Assessment: Moderate/High Risk (score >= 2) Caprini Risk Assessment Model: Point Value = 1 Point Value = 2 Point Value = 3 Point Value = 5 Age 41-60 Minor surgery BMI > 25 kg/m2 Swollen legs Varicose veins or History of unexplained or recurrent spontaneous Oral contraceptives or hormone replacement Sepsis (< 1 month) Serious lung disease, including pneumonia (< 1 month) Abnormal pulmonary function Acute myocardial infarction Congestive heart failure (< 1 month) History of inflammatory bowel disease Medical patient at bed rest Age 61-74 Arthroscopic surgery Major open surgery (> 45 min) Laparoscopic surgery (> 45 min) Malignancy Confined to bed (> 72 hours) Immobilizing plaster cast Central venous access Age >= 75 History of VTE Family history of VTE Factor V Leiden Prothrombin [id number] Lupus anticoagulant Anticardiolipin antibodies Elevated serum homocysteine Heparin-induced thrombocytopenia Other congenital or acquired thrombophilia Stroke (< 1 month) Elective arthroplasty Hip, pelvis, or leg fracture Acute spinal cord injury (< 1 month) Prophylaxis Regimen: Total Risk Factor Score Risk Level Prophylaxis Regimen 0-1 Low Early ambulation 2 Moderate Order ONE of the following: *Sequential Compression Device (SCD) *Heparin 5000 units SQ BID 3-4 Higher Order ONE of the following medications: *Heparin 5000 units SQ TID *Enoxaparin/Lovenox 40 mg SQ daily (WT < 150 kg, CrCl > 30 mL/min) *Enoxaparin/Lovenox 30 mg SQ daily (WT < 150 kg, CrCl > 10-29 mL/min) *Enoxaparin/Lovenox 30 mg SQ BID (WT < 150 kg, CrCl > 30 mL/min) AND/OR *Sequential Compression Device (SCD) 5 or more Highest Order ONE of the following medications: *Heparin 5000 units SQ TID (Preferred with Epidurals) *Enoxaparin/Lovenox 40 mg SQ daily (WT < 150 kg, CrCl > 30 mL/min) *Enoxaparin/Lovenox 30 mg SQ daily (WT < 150 kg, CrCl > 10-29 mL/min) *Enoxaparin/Lovenox 30 mg SQ BID (WT < 150 kg, CrCl > 30 mL/min) AND *Sequential Compression Device (SCD) Assessment and Plan - Assessment (1) Encephalopathy Code(s): G93.40 - Encephalopathy, unspecified Status: Acute (2) COPD (chronic obstructive pulmonary disease) Code(s): J44.9 - Chronic obstructive pulmonary disease, unspecified Status: Acute (3) UTI (urinary tract infection) Code(s): N39.0 - Urinary tract infection, site not specified Status: Acute (4) HTN (hypertension) Code(s): I10 - Essential (primary) hypertension Status: Acute (5) DM (diabetes mellitus) Code(s): E11.9 - Type 2 diabetes mellitus without complications Status: Acute (6) Chronic anticoagulation Code(s): Z79.01 - skilled nursing (current) use of anticoagulants Status: Acute (7) Tobacco abuse Code(s): Z72.0 - Tobacco use Status: Acute - Plan A/P: 1. Encephalopathy: Transient, now resolved. Likely secondary to combination of hypercapnia and acute UTI. CT Head w/ no acute findings, images reviewed. Currently AA&Ox4. 2. COPD: Chronic Respiratory Failure w/ Acute Exacerbation, +hypercapnia, pCO2 53, likely close to baseline however significant improvement on BIPAP, now on 2L NC. Monitor O2. DuoNeb prn, Symbicort. CXR w/ no acute findings, images reviewed. 3. UTI: U/a w/ UTI, follow up cultures, continue IV Abx, monitor I/o. 4. Chronic Anticoagulation: H/o DVT on Coumadin, INR 1.2, states he took Coumadin today, will recheck INR in am, resume Coumadin tomorrow. 5. HTN: Uncontrolled. BP 200's, will give Lopressor 5mg IV and Hydralazine 50mg PO x1, monitor BP, resume home meds. 6. DM: Sliding scale w/ Accu-Cheks. 7. Tobacco Abuse: Pt counselled. Smokes 1/2ppd, down from 3ppd. NicoDerm prn if needed. 8. DVT Prophylaxis: On Coumadin 9. Social work for d/c planning as needed 10. Case discussed w/ ER physician at length, labs/records/imaging reviewed by me
[2018-04-13] MEDS ORDERED: hydrALAZINE 50 MG Tablet PO ONE ×2 (20:06→20:30)
[2018-04-13] MEDS ORDERED: Metoprolol Inj 5 MG/5 ML Vial IV.PUSH ONE ×2 (20:07→20:30)
[2018-04-13] MEDS ORDERED: Dextrose 50% in Water 50 ML Vial IV.PUSH PRN (20:07)
[2018-04-13] MEDS: Sod Chloride 0.9% Inj 1,000 ML IV.CONT SCH (21:55)
[2018-04-13] MEDS: Senna/Docusate Sodium 8.6/50 MG Tablet PO SCH (21:57)
[2018-04-13] MEDS: Insulin NovoLOG Aspart Correctional Sugar Inj SQ SCH (22:44)
[2018-04-14] MEDS: Budesonide-Formoterol 160/4.5 MCG 6 GM Inhaler INH SCH ×3 (00:34→20:53)
[2018-04-14 06:23] LABS: Baso # (Auto) 0.1 th/mm3 (0.0-0.2); Eos # (Auto) 0.3 th/mm3 (0.0-0.4); Eos % (Auto) 2.4 % (0.0-4.0); Hematocrit 31.9 % (39.0-51.0); Hemoglobin 9.8 gm/dL (13.0-17.0); Lymph # (Auto) 2.2 th/mm3 (1.0-4.8); Lymph % (Auto) 18.6 % (9.0-44.0); Mean Corpuscular Hemoglobin 24.2 pg (27.0-34.0); Mean Corpuscular Volume 78.5 fL (80.0-100.0); Mean Platelet Volume 8.5 fL (7.0-11.0); Mono # (Auto) 0.7 th/mm3 (0.0-0.9); Mono % (Auto) 6.5 % (0.0-8.0); Neut # (Auto) 8.3 th/mm3 (1.8-7.7); Neut % (Auto) 71.5 % (16.0-70.0); Platelet Count 261 th/mm3 (150-450); Red Blood Count 4.06 mil/mm3 (4.50-5.90); Red Cell Distribution Width 19.3 % (11.6-17.2); White Blood Count 11.6 th/mm3 (4.0-11.0)
[2018-04-14 06:25] LABS: Mean Corpuscular HGB Conc 30.8 % (32.0-36.0)
[2018-04-14 06:32] LABS: INR 1.1 Ratio; Prothrombin Time 11.6 sec (9.8-11.6)
[2018-04-14 06:58] LABS: Alanine Aminotransferase 9 U/L (12-78); Albumin 2.8 g/dL (3.4-5.0); Anion Gap 5 meq/L (5-15); Aspartate Aminotransferase 11 U/L (15-37); Blood Urea Nitrogen 13 mg/dL (7-18); Calcium 8.3 mg/dL (8.5-10.1); Carbon Dioxide 32.4 meq/L (21.0-32.0); Chloride 103 meq/L (98-107); Glomerular Filtration Rate Greater Than 89 mL/min (>89); Glucose,Random 108 mg/dL (74-106); Potassium 3.8 meq/L (3.5-5.1); Sodium 140 meq/L (136-145)
[2018-04-14 07:00] LABS: Alkaline Phosphatase 50 U/L (45-117); Total Protein 6.9 g/dL (6.4-8.2)
[2018-04-14] MEDS: Insulin NovoLOG Aspart Correctional Sugar Inj SQ SCH ×4 (08:08→20:53)
[2018-04-14] MEDS ORDERED: Non-Formulary Drug (Diltiazem Hcl [Diltiazem Hcl] 240 MG) PO SCH (09:00)
--- NOTE | 2018-04-14 10:45 | P.PN ---
Subjective Interval history: Follow-up visit depression, HTN, HLD, morbidly obese, history of DVT, left AKA, COPD, DM, UTI. Patient seen and examined today. Reports right shoulder pain secondary to transfer to bed and pulling his shoulder. Reports urgency, mild dysuria. States he always had mild dysuria post left AKA. Denies worsening SOB / dyspnea. Denies chest pain, palpitations, headaches, dizziness. Denies fevers , chills, n/v/d. Physical Exam Vital signs: Vital Signs 04/13/18 12:56 04/13/18 13:15 04/13/18 14:08 Temperature 97.7 F Pulse Rate 78 73 Respiratory Rate 16 12 Blood Pressure 149/65 H Pulse Oximetry 99 04/13/18 16:31 04/13/18 18:00 04/13/18 19:53 Temperature 98.9 F 98.6 F Pulse Rate 72 78 78 Respiratory Rate 18 18 19 Blood Pressure 152/67 H 172/70 H 202/88 H Pulse Oximetry 100 98 04/13/18 21:41 04/14/18 00:00 04/14/18 01:00 Temperature 98 F Pulse Rate 82 83 Respiratory Rate 20 Blood Pressure 156/72 H 150/82 H Pulse Oximetry 95 95 04/14/18 03:49 04/14/18 05:21 04/14/18 07:52 Temperature 97.7 F Pulse Rate 81 Respiratory Rate 20 20 18 Blood Pressure 138/63 Pulse Oximetry 94 L Intake & Output 04/13/18 04/14/18 04/14/18 18:59 06:59 18:59 Intake Total 1100 / 1100 Balance 1100 / 1100 Weight 145.15 kg 145.15 kg Intake: IV 1100 / 1100 NS Inj 1,000 ML @ 100 mls/hr IV 1100 / 1100 .CONT .Q10H [facility] Rx#:[id number] Other: Date of Last Bowel Movement 04/13/18 Narrative: GENERAL: This is a well-nourished, well-developed patient, in no apparent distress. SKIN: Warm and dry. HEENT: Normocephalic. Pupils equal round and reactive. Nose without bleeding. Airway patent. NECK: Trachea midline. Supple. CARDIOVASCULAR: Regular rate and rhythm without murmurs, gallops, or rubs. RESPIRATORY: Clear to auscultation. Breath sounds equal bilaterally. No wheezes , rales, or rhonchi. GASTROINTESTINAL: Abdomen soft, non-tender, nondistended. Bowel Sounds normoactive x4. MUSCULOSKELETAL: Extremities without clubbing, cyanosis. Right lower extremity stasis dermatitis, +2 edema NEUROLOGICAL: Awake and alert. Oriented to time, place, person. Moves all extremities. Normal speech. Left hand tremors noted. Results - Labs CBC & Chem 7: 04/14/18 04:30 04/14/18 04:30 Laboratory Results - last 24 hr 04/13/18 04/13/18 04/13/18 13:10 13:10 13:10 WBC 10.1 RBC 4.48 L Hgb 10.9 L Hct 35.0 L MCV 78.2 L MCH 24.3 L MCHC 31.0 L RDW 19.7 H Plt Count 286 MPV 8.2 Neut % (Auto) 69.6 Lymph % (Auto) 20.9 [place] % (Auto) 6.3 Eos % (Auto) 1.9 Baso % (Auto) 1.3 Neut # (Auto) 7.0 Lymph # (Auto) 2.1 [place] # (Auto) 0.6 Eos # (Auto) 0.2 Baso # (Auto) 0.1 WBC Differential . Differential Comment Auto diff final PT 11.8 H INR 1.2 APTT 28.0 Puncture Site Patient Temperature O2 Saturation ABG pH ABG pCO2 ABG pO2 ABG HCO3 ABG O2 Content ABG Base Excess ABG Methemoglobin Allan Test Hemoglobin Carboxyhemoglobin O2 Delivery Device Vent Setting Inspired O2 Critical Value Sodium 139 Potassium 4.2 Chloride 102 Carbon Dioxide 33.6 H Anion Gap 3 L BUN 12 Creatinine 0.97 Estimated GFR 78 L POC Glucose Random Glucose 153 H Lactic Acid Calcium 8.6 Total Bilirubin 0.5 AST 12 L ALT 11 L Alkaline Phosphatase 57 Troponin I Less than 0.02 L B-Natriuretic Peptide Total Protein 8.2 Albumin 3.3 L Urine Color Urine Clarity Urine pH Ur Specific [place] Urine Protein Urine Glucose (UA) Urine Ketones Urine Occult Blood Urine Nitrate Urine Bilirubin Urine Urobilinogen Ur Leukocyte Esterase Urine RBC Urine WBC Ur Squamous Epith Cells Hyaline Casts Urine Mucus Micro UA Comment Urine Culture Comments 04/13/18 04/13/18 04/13/18 13:10 13:10 16:00 WBC RBC Hgb Hct MCV MCH MCHC RDW Plt Count MPV Neut % (Auto) Lymph % (Auto) [place] % (Auto) Eos % (Auto) Baso % (Auto) Neut # (Auto) Lymph # (Auto) [place] # (Auto) Eos # (Auto) Baso # (Auto) WBC Differential Differential Comment PT INR APTT Puncture Site Right radial Patient Temperature 98.6 O2 Saturation 91 ABG pH 7.38 ABG pCO2 53 H* ABG pO2 73 ABG HCO3 31 H ABG O2 Content 13.8 ABG Base Excess 5.7 H ABG Methemoglobin 0.7 Allan Test Present Hemoglobin 10.7 L Carboxyhemoglobin 1.8 O2 Delivery Device Bipap Vent Setting [id number] Inspired O2 35 Critical Value Yes Sodium Potassium Chloride Carbon Dioxide Anion Gap BUN Creatinine Estimated GFR POC Glucose Random Glucose Lactic Acid 1.0 Calcium Total Bilirubin AST ALT Alkaline Phosphatase Troponin I B-Natriuretic Peptide 23 Total Protein Albumin Urine Color Urine Clarity Urine pH Ur Specific [place] Urine Protein Urine Glucose (UA) Urine Ketones Urine Occult Blood Urine Nitrate Urine Bilirubin Urine Urobilinogen Ur Leukocyte Esterase Urine RBC Urine WBC Ur Squamous Epith Cells Hyaline Casts Urine Mucus Micro UA Comment Urine Culture Comments 04/13/18 04/13/18 04/14/18 17:06 22:32 04:30 WBC 11.6 H RBC 4.06 L Hgb 9.8 L Hct 31.9 L MCV 78.5 L MCH 24.2 L MCHC 30.8 L RDW 19.3 H Plt Count 261 MPV 8.5 Neut % (Auto) 71.5 H Lymph % (Auto) 18.6 [place] % (Auto) 6.5 Eos % (Auto) 2.4 Baso % (Auto) 1.0 Neut # (Auto) 8.3 H Lymph # (Auto) 2.2 [place] # (Auto) 0.7 Eos # (Auto) 0.3 Baso # (Auto) 0.1 WBC Differential . Differential Comment Auto diff final PT INR APTT Puncture Site Patient Temperature O2 Saturation ABG pH ABG pCO2 ABG pO2 ABG HCO3 ABG O2 Content ABG Base Excess ABG Methemoglobin Allan Test Hemoglobin Carboxyhemoglobin O2 Delivery Device Vent Setting Inspired O2 Critical Value Sodium Potassium Chloride Carbon Dioxide Anion Gap BUN Creatinine Estimated GFR POC Glucose 128 H Random Glucose Lactic Acid Calcium Total Bilirubin AST ALT Alkaline Phosphatase Troponin I B-Natriuretic Peptide Total Protein Albumin Urine Color Yellow Urine Clarity Hazy H Urine pH 6.0 Ur Specific [place] 1.024 Urine Protein 30 H Urine Glucose (UA) Negative Urine Ketones Negative Urine Occult Blood Negative Urine Nitrate Negative Urine Bilirubin Negative Urine Urobilinogen Less than 2 Ur Leukocyte Esterase Large H Urine RBC 4 H Urine WBC 50 H Ur Squamous Epith Cells 3 Hyaline Casts 7 Urine Mucus Few H Micro UA Comment Culture indicated Urine Culture Comments Culture indicated 04/14/18 04/14/18 04/14/18 04:30 04:30 09:06 WBC RBC Hgb Hct MCV MCH MCHC RDW Plt Count MPV Neut % (Auto) Lymph % (Auto) [place] % (Auto) Eos % (Auto) Baso % (Auto) Neut # (Auto) Lymph # (Auto) [place] # (Auto) Eos # (Auto) Baso # (Auto) WBC Differential Differential Comment PT 11.6 INR 1.1 APTT Puncture Site Patient Temperature O2 Saturation ABG pH ABG pCO2 ABG pO2 ABG HCO3 ABG O2 Content ABG Base Excess ABG Methemoglobin Allan Test Hemoglobin Carboxyhemoglobin O2 Delivery Device Vent Setting Inspired O2 Critical Value Sodium 140 Potassium 3.8 Chloride 103 Carbon Dioxide 32.4 H Anion Gap 5 BUN 13 Creatinine 0.75 Estimated GFR Greater than 89 POC Glucose 130 H Random Glucose 108 H Lactic Acid Calcium 8.3 L Total Bilirubin 0.6 AST 11 L ALT 9 L Alkaline Phosphatase 50 Troponin I B-Natriuretic Peptide Total Protein 6.9 D Albumin 2.8 L Urine Color Urine Clarity Urine pH Ur Specific [place] Urine Protein Urine Glucose (UA) Urine Ketones Urine Occult Blood Urine Nitrate Urine Bilirubin Urine Urobilinogen Ur Leukocyte Esterase Urine RBC Urine WBC Ur Squamous Epith Cells Hyaline Casts Urine Mucus Micro UA Comment Urine Culture Comments Microbiology 04/13/18 17:06 Clean Catch Urine Urine Culture - Final >100,000 cfu/mL mixed gram positive cadence (probable contaminantes) - Imaging Impressions Chest X-Ray 04/13/18 12:57 CONCLUSION: No acute cardiopulmonary disease. Head CT 04/13/18 12:57 CONCLUSION: Slight chronic small vessel ischemic and atrophic changes. No appreciable change . Assessment and Plan - Assessment (1) Encephalopathy Code(s): G93.40 - Encephalopathy, unspecified Status: Acute (2) COPD (chronic obstructive pulmonary disease) Code(s): J44.9 - Chronic obstructive pulmonary disease, unspecified Status: Acute (3) UTI (urinary tract infection) Code(s): N39.0 - Urinary tract infection, site not specified Status: Acute (4) HTN (hypertension) Code(s): I10 - Essential (primary) hypertension Status: Acute (5) DM (diabetes mellitus) Code(s): E11.9 - Type 2 diabetes mellitus without complications Status: Acute (6) Chronic anticoagulation Code(s): Z79.01 - terminal operator (current) use of anticoagulants Status: Acute (7) Tobacco abuse Code(s): Z72.0 - Tobacco use Status: Acute - Plan 63-year-old male with PMH of Depression, HTN, Hyperlipidemia, h/o DVT on Coumadin, Left BKA, COPD, Tobacco Abuse and DM who was brought to the ER by EMS for AMS Encephalopathy, Transient, now resolved. -Likely secondary to combination of hypercapnia and acute UTI. -CT Head w/ no acute findings, images reviewed. -Currently AA&Ox4. COPD, Chronic Respiratory Failure w/ Acute Exacerbation Continues to smoke -Positive hypercapnia, pCO2 53, likely close to baseline however significant improvement on BIPAP, now on 2L NC. -Monitor O2. DuoNeb prn, Symbicort -CXR w/ no acute findings, images reviewed. -Nicotine patch -Referral to outpatient pulmonology for sleep study may need BiPAP use Right shoulder pain -Toradol IV, baclofen 1 dose now. -XRay UTI, acute -U/a w/ UTI, -follow up cultures -continue IV Ceftriaxone for now Chronic Anticoagulation -H/o DVT on Coumadin, INR 1.2, states he took Coumadin prior to hospital admission -Monitor INR. -Pharmacy to assist HTN, Uncontrolled. -Resume home meds aspirin 81 mg, diltiazem 240 mg, lisinopril 10 mg daily, Spironolactone 25 mg daily started on metoprolol 25 mg twice daily -Monitor BP trend DM -Sliding scale w/ Accu-Cheks. Tobacco Abuse -Counselled. Smokes 1/2ppd, down from 3ppd. -NicoDerm prn if needed. DVT Prophylaxis Coumadin Code Status: Full Code Discussed Condition With: Patient, nursing Discharge Planning: Plan to DC home when clinically improved.
[2018-04-14] MEDS: dilTIAZem CD 240 MG Capsule PO SCH (14:42)
[2018-04-14] MEDS ORDERED: INSULIN GLARGINE 15 UNIT SQ SCH (18:00)
[2018-04-14] MEDS ORDERED: Warfarin Consult Pharmacy 1 EACH OTHER SCH (18:00)
[2018-04-14] MEDS ORDERED: INSULIN GLARGINE 30 UNIT SQ SCH (18:00)
[2018-04-14] MEDS: Ketorolac Inj 30 MG/ML (IVP) Vial IV.PUSH PRN (18:37)
[2018-04-14] MEDS: Senna/Docusate Sodium 8.6/50 MG Tablet PO SCH ×2 (20:10→20:53)
[2018-04-14] MEDS: Pantoprazole Sodium 20 MG DR Tablet PO SCH (20:10)
[2018-04-14] MEDS: Spironolactone 25 MG Tablet PO SCH (20:11)
[2018-04-14] MEDS: Lisinopril 10 MG Tablet PO SCH (20:11)
[2018-04-14] MEDS: Insulin Detemir Inj 1,000 UNIT/10 ML Vial SQ SCH (20:12)
--- NOTE | 2018-04-14 20:13 | XR ---
EXAM DATE: 04/14/2018 7:19 PM EDT AGE/SEX: 63 years / Male INDICATIONS: Right shoulder pain, no known injury. CLINICAL DATA: This is the patient's initial encounter. Patient reports that signs and symptoms have been present for 3 days and indicates a pain score of 5/10. MEDICAL/SURGICAL HISTORY: None. None. COMPARISON: No prior exams available for comparison. FINDINGS: Bony structures are intact and in normal alignment. Joints are intact without dislocation or signifi cant arthropathy. Osseous density is normal. Soft tissues are unremarkable. No radiopaque foreign bodies seen. CONCLUSION: No acute findings. Mild to moderate osteoarthritis of the right shoulder. Electronically signed by: Henok Armando MD 04/14/2018 8:12 PM EDT
[2018-04-14] MEDS: Sod Chloride 0.9% Inj 1,000 ML IV.CONT SCH ×2 (20:51)
[2018-04-14] MEDS: Metoprolol Tartrate 25 MG Tablet PO SCH (20:52)
--- NOTE | 2018-04-14 22:11 | ECG ---
Date Performed: 04/13/2018 Time Performed: 12:57:51 PTAGE: 63 years EKG: Sinus rhythm NORMAL ECG PREVIOUS TRACING : 03/04/2018 08.17 Since the previous tracing, no significant change noted DOCTOR: Giuseppe Hamilton Interpretating Date/Time 04/14/2018 22:09:55
[2018-04-15] MEDS: Ketorolac Inj 30 MG/ML (IVP) Vial IV.PUSH PRN (03:24)
[2018-04-15 07:25] LABS: Baso # (Auto) 0.1 th/mm3 (0.0-0.2); Baso % (Auto) 1.1 % (0.0-2.0); Eos # (Auto) 0.3 th/mm3 (0.0-0.4); Eos % (Auto) 3.2 % (0.0-4.0); Hematocrit 32.1 % (39.0-51.0); Hemoglobin 9.7 gm/dL (13.0-17.0); Lymph # (Auto) 1.7 th/mm3 (1.0-4.8); Lymph % (Auto) 19.6 % (9.0-44.0); Mean Corpuscular Hemoglobin 24.3 pg (27.0-34.0); Mean Corpuscular Volume 80.1 fL (80.0-100.0); Mean Platelet Volume 8.3 fL (7.0-11.0); Mono # (Auto) 0.6 th/mm3 (0.0-0.9); Mono % (Auto) 6.8 % (0.0-8.0); Neut % (Auto) 69.3 % (16.0-70.0); Platelet Count 250 th/mm3 (150-450); Red Blood Count 4.01 mil/mm3 (4.50-5.90); Red Cell Distribution Width 19.9 % (11.6-17.2); White Blood Count 8.6 th/mm3 (4.0-11.0)
[2018-04-15 07:30] LABS: Mean Corpuscular HGB Conc 30.3 % (32.0-36.0)
[2018-04-15 07:38] LABS: INR 1.2 Ratio; Prothrombin Time 12.1 sec (9.8-11.6)
[2018-04-15 08:02] LABS: Anion Gap 6 meq/L (5-15); Blood Urea Nitrogen 11 mg/dL (7-18); Carbon Dioxide 26.6 meq/L (21.0-32.0); Chloride 109 meq/L (98-107); Glomerular Filtration Rate Greater Than 89 mL/min (>89); Glucose,Random 93 mg/dL (74-106); Potassium 3.5 meq/L (3.5-5.1); Sodium 142 meq/L (136-145)
[2018-04-15 08:24] LABS: Total Protein 5.8 g/dL (6.4-8.2)
[2018-04-15] MEDS: Lisinopril 10 MG Tablet PO SCH (09:00)
[2018-04-15] MEDS: Sod Chloride 0.9% Inj 1,000 ML IV.CONT SCH (09:00)
[2018-04-15] MEDS: Pantoprazole Sodium 20 MG DR Tablet PO SCH (09:01)
[2018-04-15] MEDS: Metoprolol Tartrate 25 MG Tablet PO SCH ×2 (09:01→21:51)
[2018-04-15] MEDS: dilTIAZem CD 240 MG Capsule PO SCH (09:01)
[2018-04-15] MEDS: Senna/Docusate Sodium 8.6/50 MG Tablet PO SCH ×2 (09:02→21:57)
[2018-04-15] MEDS: Insulin NovoLOG Aspart Correctional Sugar Inj SQ SCH ×4 (09:05→21:57)
[2018-04-15] MEDS: Spironolactone 25 MG Tablet PO SCH (09:05)
[2018-04-15] MEDS: Insulin Detemir Inj 1,000 UNIT/10 ML Vial SQ SCH (09:05)
[2018-04-15] MEDS: Budesonide-Formoterol 160/4.5 MCG 6 GM Inhaler INH SCH ×2 (09:06→21:56)
--- NOTE | 2018-04-15 13:33 | P.PN ---
Subjective Interval history: Follow-up visit depression, HTN, HLD, morbidly obese, history of DVT, left AKA, COPD with exacerbation, DM, UTI, . Patient seen and examined today. Reports right shoulder pain continues, limited movement, tender to palpate. Shortness of breath improving. States that he uses O2 nasal cannula 4 L when he is laying in bed. States that he had sleep study done before about 3 years ago and did not qualify for any CPAP or BiPAP machine. States that his problem is that he keeps on falling asleep without his oxygen. Discussed with patient may need new sleep study. Denies chest pain, palpitations, headaches, dizziness. Denies fevers, chills, n/v/d. Denies dysuria. Physical Exam Vital signs: Vital Signs 04/14/18 15:53 04/14/18 20:00 04/15/18 00:00 Temperature 98.4 F 98.2 F Pulse Rate 72 72 65 Respiratory Rate 20 17 17 Blood Pressure 168/81 H 149/72 H 117/58 L Pulse Oximetry 94 L 96 94 L 04/15/18 03:15 04/15/18 05:52 04/15/18 08:00 Temperature 98.4 F 97.5 F L Pulse Rate 68 62 Respiratory Rate 17 21 14 Blood Pressure 112/68 131/63 Pulse Oximetry 96 95 04/15/18 12:00 Temperature 97.3 F L Pulse Rate 62 Respiratory Rate 16 Blood Pressure 125/58 L Pulse Oximetry 97 Intake & Output 04/14/18 04/15/18 04/15/18 18:59 06:59 18:59 Intake Total 1100 / 1100 Output Total 850 / 850 Balance 250 / 250 Intake: IV 1100 / 1100 NS Inj 1,000 ML @ 100 mls/hr IV 1000 / 1000 .CONT .Q10H JAMIE Rx#:[id number] Rocephin Inj 1,000 MG In NS Inj 100 / 100 100 ML @ 200 mls/hr IV.SIG Q24H JAMIE Rx#:[id number] Output: Urine 850 / 850 Other: # Voids 2 Narrative: GENERAL: This is a well-nourished, well-developed patient, in no apparent distress. SKIN: Warm and dry. HEENT: Normocephalic. Pupils equal round and reactive. Nose without bleeding. Airway patent. NECK: Trachea midline. Supple. CARDIOVASCULAR: Regular rate and rhythm without murmurs, gallops, or rubs. RESPIRATORY: Clear to auscultation. Breath sounds equal bilaterally. No wheezes , rales, or rhonchi. GASTROINTESTINAL: Abdomen soft, non-tender, nondistended. Bowel Sounds normoactive x4. MUSCULOSKELETAL: Extremities without clubbing, cyanosis. Right lower extremity stasis dermatitis, +2 edema NEUROLOGICAL: Awake and alert. Oriented to time, place, person. Moves all extremities. Normal speech. Left hand tremors noted. Results - Labs CBC & Chem 7: 04/15/18 06:35 04/15/18 06:35 Laboratory Results - last 24 hr 04/14/18 04/14/18 04/15/18 18:41 20:44 06:35 WBC RBC Hgb Hct MCV MCH MCHC RDW Plt Count MPV Neut % (Auto) Lymph % (Auto) Warren % (Auto) Eos % (Auto) Baso % (Auto) Neut # (Auto) Lymph # (Auto) Warren # (Auto) Eos # (Auto) Baso # (Auto) WBC Differential Differential Comment PT 12.1 H INR 1.2 Sodium Potassium Chloride Carbon Dioxide Anion Gap BUN Creatinine Estimated GFR POC Glucose 116 H 137 H Random Glucose Calcium Prot Corrected Calcium Total Protein 04/15/18 04/15/18 04/15/18 06:35 06:35 09:04 WBC 8.6 RBC 4.01 L Hgb 9.7 L Hct 32.1 L MCV 80.1 MCH 24.3 L MCHC 30.3 L RDW 19.9 H Plt Count 250 MPV 8.3 Neut % (Auto) 69.3 Lymph % (Auto) 19.6 Warren % (Auto) 6.8 Eos % (Auto) 3.2 Baso % (Auto) 1.1 Neut # (Auto) 6.0 Lymph # (Auto) 1.7 Warren # (Auto) 0.6 Eos # (Auto) 0.3 Baso # (Auto) 0.1 WBC Differential . Differential Comment Auto diff final PT INR Sodium 142 Potassium 3.5 Chloride 109 H Carbon Dioxide 26.6 Anion Gap 6 BUN 11 Creatinine 0.53 L Estimated GFR Greater than 89 POC Glucose 119 H Random Glucose 93 Calcium 7.0 L* D Prot Corrected Calcium 7.7 L Total Protein 5.8 L D Microbiology 04/13/18 13:05 Blood - Peripheral Aerobic Blood Culture - Preliminary No growth in 2 days 04/13/18 13:05 Blood - Peripheral Anaerobic Blood Culture - Preliminary No growth in 2 days 04/13/18 13:10 Blood - Peripheral Aerobic Blood Culture - Preliminary No growth in 2 days 04/13/18 13:10 Blood - Peripheral Anaerobic Blood Culture - Preliminary No growth in 2 days 04/13/18 17:06 Clean Catch Urine Urine Culture - Final >100,000 cfu/mL mixed gram positive cadence (probable contaminantes) - Imaging Impressions Shoulder X-Ray 04/14/18 00:00 CONCLUSION: No acute findings. Mild to moderate osteoarthritis of the right shoulder. - Procedures None Assessment and Plan - Assessment (1) Encephalopathy Code(s): G93.40 - Encephalopathy, unspecified Status: Acute (2) COPD (chronic obstructive pulmonary disease) Code(s): J44.9 - Chronic obstructive pulmonary disease, unspecified Status: Acute (3) UTI (urinary tract infection) Code(s): N39.0 - Urinary tract infection, site not specified Status: Acute (4) HTN (hypertension) Code(s): I10 - Essential (primary) hypertension Status: Acute (5) DM (diabetes mellitus) Code(s): E11.9 - Type 2 diabetes mellitus without complications Status: Acute (6) Chronic anticoagulation Code(s): Z79.01 - intermediate (current) use of anticoagulants Status: Acute (7) Tobacco abuse Code(s): Z72.0 - Tobacco use Status: Acute - Plan 63-year-old male with PMH of Depression, HTN, Hyperlipidemia, h/o DVT on Coumadin, Left BKA, COPD, Tobacco Abuse and DM who was brought to the ER by EMS for AMS Encephalopathy, Transient, now resolved. -Likely secondary to combination of hypercapnia and acute UTI. -CT Head w/ no acute findings, images reviewed. -Currently AA&Ox4. -Improved MS COPD, Chronic Respiratory Failure w/ Acute Exacerbation Continues to smoke -Positive hypercapnia, pCO2 53, likely close to baseline however significant improvement on BIPAP, now on 2L NC. -Monitor O2. DuoNeb prn, Symbicort -CXR w/ no acute findings, images reviewed. -Nicotine patch -Referral to outpatient pulmonology for sleep study may need BiPAP or CPAP use Right shoulder pain -Toradol IV, baclofen 1 dose given -XRay negative for fx, osteoarthritis -[place] for pain, ibuprofen 3 days will reevaluate tomorrow if ibuprofen continues to be needed. -Flexeril dose now. -Occupational therapy has seen the patient and recommends occupational therapy rehabilitation and outpatient. UTI, acute -U/a w/ UTI, -follow up cultures -continue IV Ceftriaxone for now Chronic Anticoagulation H/o DVT on Coumadin -Monitor INR. -Pharmacy to assist HTN, Uncontrolled. -Resume home meds aspirin 81 mg, diltiazem 240 mg, lisinopril 10 mg daily, Spironolactone 25 mg daily started on metoprolol 25 mg twice daily -Monitor BP trend -Improved DM -Sliding scale w/ Accu-Cheks. Tobacco Abuse -Counselled. Smokes 1/2ppd, down from 3ppd. -NicoDerm prn if needed. DVT Prophylaxis Coumadin Code Status: Full code Discussed Condition With: Patient, nursing Discharge Planning: Plan to DC home when clinically improved. Possibly tomorrow.
[2018-04-16 04:49] VITALS: O2SAT 94
[2018-04-16 06:34] LABS: INR 1.7 Ratio; Prothrombin Time 16.7 sec (9.8-11.6)
[2018-04-16 08:21] VITALS: BP 108/59; PULSE 59; RESP 16; TEMP 97.4
--- NOTE | 2018-04-16 09:29 | P.DS ---
Date of admission: 04/13/18 19:47 Primary care physician: UNKNOWN Attending physician on discharge: Li Carolina Anticipated date of discharge: 04/16/18 Brief History from admission: This is a 63-year-old male with PMH of Depression, HTN, Hyperlipidemia, h/o DVT on Coumadin, Left BKA, COPD, Tobacco Abuse and DM who was brought to the ER by EMS for AMS. Pt initially noted to be lethargic on arrival and placed on BIPAP transiently with improvement. Pt now AA&O and able to provide history. States he normally uses O2 at night, however fell asleep without it, this morning found him "slumped over" on the couch, minimally responsive. On arrival, BP 149 /65, HR 78, O2 sat 94% on 3L NC, Afebrile. ABG with pH 7.38, PCO2 53, PO2 73 at which time he was started on BIPAP, currently on 2L NC w/ O2 sat 94%. Admits to ongoing tobacco abuse, smokes 1/2ppd, down from 3ppd. CBC essentially unremarkable. INR 1.2. Chemistry essentially unremarkable except for GFR 78. Troponin negative. UA positive for UTI. CXR with no acute findings. CT Head negative. S/p Rocephin IV in ER. DS: Diagnosis - Discharge Diagnosis (1) Encephalopathy Status: Acute (2) COPD (chronic obstructive pulmonary disease) Status: Acute (3) UTI (urinary tract infection) Status: Acute (4) HTN (hypertension) Status: Acute (5) DM (diabetes mellitus) Status: Acute (6) Chronic anticoagulation Status: Acute (7) Tobacco abuse Status: Acute DS: Medications - Discharge Medications Prescriptions: budesonide-formoterol [Symbicort] 2 puff INH BID #1 inhaler hydrocodone-acetaminophen 1 tab PO Q4H PRN #18 tab PRN Reason: Acute Pain ibuprofen 800 mg PO Q8H 3 Days #9 tab metoprolol tartrate 25 mg PO BID #60 tab sennosides-docusate sodium [Senna Plus] 1 tab PO BID #20 tab DS: Summary Hospital Course: 63-year-old male with PMH of Depression, HTN, Hyperlipidemia, h/o DVT on Coumadin, Left BKA, COPD, Tobacco Abuse and DM who was brought to the ER by EMS for AMS. Encephalopathy, it was transient likely secondary to combination of hypercapnia and acute urinary tract infection. CT of the head without any acute findings. Currently ANO 4. With improved mentation. Patient has COPD with chronic respiratory failure with mild acute exacerbation. Patient continues to smoke. He was counseled. Initially came in positive for hypercapnia with PCO2 of 53 possibly baseline but with significant improvement when he was placed on BiPAP in the ED. He is on O2 nasal cannula. At home he is on 4 L nasal cannula titrated to 2 when he is doing activities are up and about in his wheelchair. His chest x-ray with no acute findings. He was offered nicotine patch. He needs a referral for outpatient pulmonology for possible sleep study may need BiPAP or CPAP. He came in also with a right shoulder pain. X-ray was negative for fracture positive for osteo-arthritis. He was given Trimble for pain and ibuprofen. He was also given Flexeril. With relief. He was seen by occupational therapy recommending occupational therapy at home in the outpatient setting. His acute urinary tract infection was treated with ceftriaxone. Follow-up culture showed mixed gram-positive cadence no other growth. He will not be sent home with any antibiotics. He is on chronic anticoagulation for history of DVT. He is on Coumadin. His INR has been monitored and latest INR is 1.7 he will continue with his current regimen at home. He has high blood pressure which has been uncontrolled on admission but he was restarted on his home medication with an addition of metoprolol 25 mg twice daily. Patient was on insulin sliding scale, and Levemir basal insulin during his hospitalization his sugars were within less than 150s. He can restart his home medication of insulin. Patient has met maximal benefits of hospitalization. Clinically stable for discharge. - Time Spent with Patient Total time spent providing and/or coordinating discharge services: Greater than 30 minutes - Quality: VTE Deep Vein Thrombosis/Pulmonary Embolism Present on Admission: No Exam Vital signs: Vital Signs 04/15/18 12:00 04/15/18 16:00 04/15/18 16:24 Temperature 97.3 F L 97.8 F Pulse Rate 62 68 Respiratory Rate 16 16 Blood Pressure 125/58 L 119/58 L Pulse Oximetry 97 92 L 04/15/18 20:00 04/15/18 23:26 04/16/18 00:00 Temperature 98.2 F 98.4 F Pulse Rate 67 60 Respiratory Rate 17 19 17 Blood Pressure 128/64 108/58 L Pulse Oximetry 93 L 93 L 04/16/18 04:00 04/16/18 08:00 Temperature 98.4 F 97.4 F L Pulse Rate 65 59 L Respiratory Rate 17 16 Blood Pressure 103/55 L 108/59 L Pulse Oximetry 94 L 94 L Intake & Output 04/15/18 04/16/18 04/16/18 18:59 06:59 18:59 Intake Total 400 / 400 Output Total 500 / 500 Balance -100 / -100 Intake: IV 100 / 100 Rocephin Inj 1,000 MG In NS Inj 100 / 100 100 ML @ 200 mls/hr IV.SIG Q24H JAMIE Rx#:[id number] Oral 300 / 300 Output: Urine 500 / 500 Other: # Voids 2 Date of Last Bowel Movement 04/13/18 04/14/18 Narrative: GENERAL: This is a well-nourished, well-developed patient, in no apparent distress. SKIN: Warm and dry. HEENT: Normocephalic. Pupils equal round and reactive. Nose without bleeding. Airway patent. NECK: Trachea midline. Supple. CARDIOVASCULAR: Regular rate and rhythm without murmurs, gallops, or rubs. RESPIRATORY: Clear to auscultation. Breath sounds equal bilaterally. No wheezes , rales, or rhonchi. GASTROINTESTINAL: Abdomen soft, non-tender, nondistended. Bowel Sounds normoactive x4. MUSCULOSKELETAL: Extremities without clubbing, cyanosis. Right lower extremity stasis dermatitis, +2 edema NEUROLOGICAL: Awake and alert. Oriented to time, place, person. Moves all extremities. Normal speech. Left hand tremors noted. Results Procedures completed during hospitalization: None Labs on day of discharge: Labs from last 24 hours 04/16/18 04/16/18 04/15/18 09:17 05:48 21:56 PT 16.7 H INR 1.7 POC Glucose 105 111 H 04/15/18 17:10 PT INR POC Glucose 151 H Preliminary micro results at discharge 04/13/18 13:05 Aerobic Blood Culture - Preliminary Blood - Peripheral No growth in 2 days Anaerobic Blood Culture - Preliminary No growth in 2 days 04/13/18 13:10 Aerobic Blood Culture - Preliminary Blood - Peripheral No growth in 2 days Anaerobic Blood Culture - Preliminary No growth in 2 days - Impressions ITS Impressions Chest X-Ray 04/13/18 12:57 CONCLUSION: No acute cardiopulmonary disease. Head CT 04/13/18 12:57 CONCLUSION: Slight chronic small vessel ischemic and atrophic changes. No appreciable change . Shoulder X-Ray 04/14/18 00:00 CONCLUSION: No acute findings. Mild to moderate osteoarthritis of the right shoulder. Discharge Plan - Discharge Disposition Patient Disposition: /Home Health Service - Discharge Condition Condition: Stable - Discharge Order Discharge Orders: Discharge Order (Routine); Ordered 04/16/18 Ordered By: Ben Siegel - Physicians Team Primary Care Provider: UNKNOWN, Attending Provider: Li Carolina
[2018-04-16] MEDS: Metoprolol Tartrate 25 MG Tablet PO SCH (09:30)
[2018-04-16] MEDS: Spironolactone 25 MG Tablet PO SCH (09:30)
[2018-04-16] MEDS: dilTIAZem CD 240 MG Capsule PO SCH (09:30)
[2018-04-16] MEDS: Pantoprazole Sodium 20 MG DR Tablet PO SCH (09:31)
[2018-04-16] MEDS: Insulin NovoLOG Aspart Correctional Sugar Inj SQ SCH (09:31)
[2018-04-16] MEDS: Senna/Docusate Sodium 8.6/50 MG Tablet PO SCH (09:31)
--- NOTE | 2018-04-16 09:31 | P.DCO ---
- Physical Therapy Order: Evaluate and treat - Occupational Therapy Order: Evaluate and treat - Home Health Nursing Order: Medical education, Signs/symptoms of disease process, Oxygen administration education, Medication education-adverse effect - Certification I have seen patient Jorge Alberto Contreras on 04/16/18. My clinical findings support the need for the requested home health care services because: Limited mobility due to disease progression, Patient has SOB, Deconditioned with increased weakness, Medication compliance is questionable, Infection with risk of complications I certify that my clinical findings support that this patient is homebound because: Hx COPD - exertion dyspnea/weakness, Unsteady gait/balance, Poor cardiac reserve
[2018-04-16] MEDS: Insulin Detemir Inj 1,000 UNIT/10 ML Vial SQ SCH (09:32)
[2018-04-16] MEDS ORDERED: Heparin Central Flush 100 UNIT/ML 5 ML Vial IV.FLUSH ONE (13:16)
== END 2018-04-16 13:57 | disposition home health service (06) ==
LOC: NEPC 12:53 → NEPHCDU 12:53 → NEDA 19:47 → INTOOBSV 19:47 → NEPHCDU 04-14 00:51
PROVIDERS: ADMIT Hospitalist; ATTEND Hospitalist

== ENCOUNTER 2018-04-17 11:19 | Observation (INO) ==
--- NOTE | 2018-04-17 11:54 | ED ---
HPI General Chief complaint: Overdose Stated complaint: Medicale Time Seen by Provider: 04/17/18 11:53 Source: patient Mode of arrival: EMS Limitations: no limitations History of Present Illness HPI narrative: 63-year-old male with history of diabetes, A. fib, on Coumadin, lymphedema, left AKA, COPD on 3 L nasal cannula at home, CAD, hypertension, presents emergency department for evaluation of altered mental status, possible overdose. Patient was found unresponsive by his . He was given Narcan when [facility] arrived and his pupils went from pinpoint to dilated. He was more arousable but still obtunded. Patient was seen and evaluated here last week for similar and was hypercarbic as well as hypoxic on arrival. Patient is a poor historian due to his obtunded notes. Related Data Home Medications Medication Instructions Recorded Confirmed albuterol sulfate 0.63 mg INHALATION Q4H 04/13/18 04/13/18 aspirin [Aspir-81] 81 mg PO DAILY 04/13/18 04/13/18 diltiazem HCl 240 mg PO DAILY 04/13/18 04/13/18 insulin glargine 30 unit SUB-Q DAILY 04/13/18 04/13/18 lisinopril 10 mg PO DAILY 04/13/18 04/13/18 pantoprazole [Protonix] 20 m PO DAILY 04/13/18 04/13/18 pregabalin [Lyrica] 100 mg PO BID 04/13/18 04/13/18 spironolactone 25 mg PO DAILY 04/13/18 04/13/18 warfarin [Coumadin] 5 mg PO DAILY 04/13/18 04/13/18 Previous Rx's Medication Instructions Recorded budesonide-formoterol [Symbicort] 2 puff INH BID #1 inhaler 04/15/18 hydrocodone-acetaminophen 1 tab PO Q4H PRN #18 tab 04/15/18 ibuprofen 800 mg PO Q8H 3 Days #9 tab 04/15/18 metoprolol tartrate 25 mg PO BID #60 tab 04/15/18 sennosides-docusate sodium [Senna 1 tab PO BID #20 tab 04/15/18 Plus] cyclobenzaprine 10 mg PO TID PRN #12 tab 04/16/18 Allergies Allergy/AdvReac Type Severity Reaction Status Date / Time diatrizoate meglumine Allergy Severe SHOCK Verified 04/17/18 11:34 gadobenic acid Allergy Severe SHOCK Verified 04/17/18 11:34 gadodiamide Allergy Severe SHOCK Verified 04/17/18 11:34 gadoteridol Allergy Severe SHOCK Verified 04/17/18 11:34 iodine Allergy Severe Difficulty Verified 04/17/18 11:34 Breathing iodixanol Allergy Severe SHOCK Verified 04/17/18 11:34 iohexol Allergy Severe SHOCK Verified 04/17/18 11:34 potassium iodide Allergy Severe Difficulty Verified 04/17/18 11:34 Breathing povidone-iodine Allergy Severe Difficulty Verified 04/17/18 11:34 Breathing sodium iodide Allergy Severe Difficulty Verified 04/17/18 11:34 Breathing sodium iodide Allergy Severe Difficulty Verified 04/17/18 11:34 Breathing MRI PRECAUTION Allergy Severe ANEURSYM Uncoded 04/13/18 12:59 CLIPPING Review of Systems Except as stated in HPI: all other systems reviewed are negative [facility] [place] Medical History Medical History Complete below knee amputation of left lower extremity (Acute) Depression (Acute) Hypertension (Acute) Stroke (Acute) Myocardial infarct (Acute) Hyperlipidemia (Acute) DVT (deep venous thrombosis) (Acute) Diabetes (Acute) Social History Social History Substance History: Unable to Obtain Second Hand Smoke Exposure: Yes Smoking Status: Current every day smoker Tobacco Type: Cigarettes How Often Do You Have a Drink Containing Alcohol: Unable to Obtain Recent Travel in [facility] within the Last 8 Weeks: No Recent Out of Country Travel within the Last 8 Weeks: No Immunization History Tetanus Immunization: Unable to Assess Hx Influenza Vaccine This Season: Unable to Assess Exam Narrative Exam Narrative: GENERAL: Obese obtunded male patient, lying in bed, arousable to deep sternal rub SKIN: Focused skin assessment warm/dry. HEAD: Atraumatic. Normocephalic. EYES: Pupils equal and round. No scleral icterus. No injection or drainage. ENT: No nasal bleeding or discharge. Mucous membranes pink and moist. NECK: Trachea midline. No JVD. CARDIOVASCULAR: Regular rate and rhythm. No murmur appreciated. RESPIRATORY: No accessory muscle use. Coarse with an expiratory wheeze, diminished to auscultation. Breath sounds equal bilaterally. GASTROINTESTINAL: Abdomen soft, non-tender, nondistended. Hepatic and splenic margins not palpable. MUSCULOSKELETAL: No obvious deformities. No clubbing. No cyanosis. No edema. Left AKA NEUROLOGICAL: Obtunded. Unable to assess cranial nerves. Patient does move his extremities spontaneously and purposefully. Slurred speech when he does answer my questions. Course Initial Documented Vital Signs Temperature 97.5 F L 04/17/18 11:41 Pulse Rate 67 04/17/18 11:41 Respiratory Rate 12 04/17/18 11:41 Blood Pressure 135/63 04/17/18 11:41 Pulse Oximetry 93 L 04/17/18 11:41 Last Documented Vital Signs Temperature 97.5 F L 04/17/18 11:41 Pulse Rate 67 04/17/18 11:41 Respiratory Rate 12 04/17/18 11:44 Blood Pressure 135/63 04/17/18 11:41 Pulse Oximetry 94 L 04/17/18 12:27 Medical Decision Making HARRIET Attestation HARRIET supervised visit: Yes [facility] Narrative Medical decision making narrative: 63-year-old male presents emergency department for evaluation of possible overdose. Patient does have history of COPD and had a recent visit for hypercarbia and hypoxia after an altered mental status visit. Patient presents today by [facility]. He was given Narcan prior to arrival. He is obtunded, arousable. Pupils are no longer pinpoint. There are equal and reactive. Patient does ask to use the bathroom. He does have slurred speech and moves his extremities purposefully. Lab work is ordered and reviewed P. Patient does test positive for opiates. He is given another dose of Narcan with some improvement. Patient's blood gases reviewed and consistent with previous. I discussed the patient my attending physician who agrees the patient would benefit from observation status. I have spoken with [facility]. They will accept the patient for this admission. Differential Diagnosis Differential Diagnosis: Overdose versus hypercarbia versus electrolyte abnormality versus intracranial etiology Medical Records Medical records reviewed: Yes I reviewed the patient's medical records. Lab Data Lab results reviewed: Yes I reviewed the patient's lab results. Result diagrams: 04/17/18 12:00 04/17/18 12:00 Lab Results 04/17/18 04/17/18 04/17/18 Range/Units 12:00 12:00 12:00 WBC 11.2 H (4.0-11.0) th/mm3 RBC 3.92 L (4.50-5.90) mil/mm3 Hgb 9.6 L (13.0-17.0) gm/dL Hct 31.5 L (39.0-51.0) % MCV 80.4 (80.0-100.0) fL MCH 24.6 L (27.0-34.0) pg MCHC 30.6 L (32.0-36.0) % RDW 20.4 H (11.6-17.2) % Plt Count 270 (150-450) th/mm3 MPV 8.7 (7.0-11.0) fL Prelim Diff (Auto) Slide review pending Neut % (Auto) 75.2 H (16.0-70.0) % Lymph % (Auto) 15.7 (9.0-44.0) % [place] % (Auto) 6.8 (0.0-8.0) % Eos % (Auto) 1.2 (0.0-4.0) % Baso % (Auto) 1.1 (0.0-2.0) % Neut # (Auto) 8.4 H (1.8-7.7) th/mm3 Lymph # (Auto) 1.7 (1.0-4.8) th/mm3 [place] # (Auto) 0.8 (0.0-0.9) th/mm3 Eos # (Auto) 0.1 (0.0-0.4) th/mm3 Baso # (Auto) 0.1 (0.0-0.2) th/mm3 WBC Differential . Diff Scan Auto diff confirmed Differential Comment . PT 15.7 H (9.8-11.6) sec INR 1.6 Ratio APTT 22.6 L (24.3-30.1) sec Puncture Site Patient Temperature O2 Saturation (90-100) % ABG pH (7.380-7.420) ABG pCO2 (38-42) mmHg ABG pO2 (61-120) mmHg ABG HCO3 (22-26) mmol/L ABG O2 Content (12.0-20.0) Vol % ABG Base Excess (-2-2) mmol/L ABG Methemoglobin (0-2) % Allan Test Hemoglobin (12.0-16.0) G/DL Carboxyhemoglobin (0-4) % Inspired O2 % Critical Value Sodium 138 (136-145) meq/L Potassium 3.7 (3.5-5.1) meq/L Chloride 102 (98-107) meq/L Carbon Dioxide 27.2 (21.0-32.0) meq/L Anion Gap 9 (5-15) meq/L BUN 13 (7-18) mg/dL Creatinine 0.95 (0.60-1.30) mg/dL Estimated GFR 80 L (>89) mL/min Random Glucose 141 H (74-106) mg/dL Lactic Acid (0.4-2.0) mmol/L Calcium 8.2 L (8.5-10.1) mg/dL Total Bilirubin 0.3 (0.2-1.0) mg/dL AST 10 L (15-37) U/L ALT 8 L (12-78) U/L Alkaline Phosphatase 45 (45-117) U/L Ammonia (11-32) mcmol/L Total Creatine Kinase 88 (39-308) U/L Troponin I Less than 0.02 L (0.02-0.05) ng/mL Total Protein 6.8 D (6.4-8.2) g/dL Albumin 2.7 L (3.4-5.0) g/dL Urine Color (Yellw/Straw) Urine Clarity (Clear) Urine pH (5.0-8.5) Ur Specific [place] (1.002-1.035) Urine Protein (Neg-Trace) mg/dL Urine Glucose (UA) (Negative) mg/dL Urine Ketones (Negative) mg/dL Urine Occult Blood (Negative) Urine Nitrate (Negative) Urine Bilirubin (Negative) Urine Urobilinogen (Less than 2) mg/dL Ur Leukocyte Esterase (Negative) Urine RBC (0-3) /hpf Urine WBC (0-5) /hpf Ur Squamous Epith Cells (0-5) /hpf Urine Bacteria (None) /hpf Hyaline Casts (0-3) /lpf Waxy Casts (None) /lpf Urine Mucus (Occasional) /lpf Micro UA Comment Urine Culture Comments Urine Opiates Screen (Neg) Acetaminophen (10.0-30.0) mcg/mL Ur Barbiturates Screen (Neg) Ur Amphetamines Screen (Neg) U Benzodiazepines Scrn (Neg) Urine Cocaine Screen (Neg) U Cannabinoids Screen (Neg) Serum Alcohol Less than 3 (0-5) mg/dL 04/17/18 04/17/18 04/17/18 Range/Units 12:00 12:04 12:15 WBC (4.0-11.0) th/mm3 RBC (4.50-5.90) mil/mm3 Hgb (13.0-17.0) gm/dL Hct (39.0-51.0) % MCV (80.0-100.0) fL MCH (27.0-34.0) pg MCHC (32.0-36.0) % RDW (11.6-17.2) % Plt Count (150-450) th/mm3 MPV (7.0-11.0) fL Prelim Diff (Auto) Neut % (Auto) (16.0-70.0) % Lymph % (Auto) (9.0-44.0) % [place] % (Auto) (0.0-8.0) % Eos % (Auto) (0.0-4.0) % Baso % (Auto) (0.0-2.0) % Neut # (Auto) (1.8-7.7) th/mm3 Lymph # (Auto) (1.0-4.8) th/mm3 [place] # (Auto) (0.0-0.9) th/mm3 Eos # (Auto) (0.0-0.4) th/mm3 Baso # (Auto) (0.0-0.2) th/mm3 WBC Differential Diff Scan Differential Comment PT (9.8-11.6) sec INR Ratio APTT (24.3-30.1) sec Puncture Site Right radial Patient Temperature 98.6 O2 Saturation 92 (90-100) % ABG pH 7.33 L (7.380-7.420) ABG pCO2 57 H* (38-42) mmHg ABG pO2 76 (61-120) mmHg ABG HCO3 30 H (22-26) mmol/L ABG O2 Content 13.4 (12.0-20.0) Vol % ABG Base Excess 4.0 H (-2-2) mmol/L ABG Methemoglobin 0.5 (0-2) % Allan Test Present Hemoglobin 10.3 L (12.0-16.0) G/DL Carboxyhemoglobin 1.7 (0-4) % Inspired O2 21 % Critical Value Yes Sodium (136-145) meq/L Potassium (3.5-5.1) meq/L Chloride (98-107) meq/L Carbon Dioxide (21.0-32.0) meq/L Anion Gap (5-15) meq/L BUN (7-18) mg/dL Creatinine (0.60-1.30) mg/dL Estimated GFR (>89) mL/min Random Glucose (74-106) mg/dL Lactic Acid 1.3 (0.4-2.0) mmol/L Calcium (8.5-10.1) mg/dL Total Bilirubin (0.2-1.0) mg/dL AST (15-37) U/L ALT (12-78) U/L Alkaline Phosphatase (45-117) U/L Ammonia (11-32) mcmol/L Total Creatine Kinase (39-308) U/L Troponin I (0.02-0.05) ng/mL Total Protein (6.4-8.2) g/dL Albumin (3.4-5.0) g/dL Urine Color (Yellw/Straw) Urine Clarity (Clear) Urine pH (5.0-8.5) Ur Specific [place] (1.002-1.035) Urine Protein (Neg-Trace) mg/dL Urine Glucose (UA) (Negative) mg/dL Urine Ketones (Negative) mg/dL Urine Occult Blood (Negative) Urine Nitrate (Negative) Urine Bilirubin (Negative) Urine Urobilinogen (Less than 2) mg/dL Ur Leukocyte Esterase (Negative) Urine RBC (0-3) /hpf Urine WBC (0-5) /hpf Ur Squamous Epith Cells (0-5) /hpf Urine Bacteria (None) /hpf Hyaline Casts (0-3) /lpf Waxy Casts (None) /lpf Urine Mucus (Occasional) /lpf Micro UA Comment Urine Culture Comments Urine Opiates Screen (Neg) Acetaminophen Less than 2.0 L (10.0-30.0) mcg/mL Ur Barbiturates Screen (Neg) Ur Amphetamines Screen (Neg) U Benzodiazepines Scrn (Neg) Urine Cocaine Screen (Neg) U Cannabinoids Screen (Neg) Serum Alcohol (0-5) mg/dL 04/17/18 04/17/18 04/17/18 Range/Units 12:15 12:15 12:15 WBC (4.0-11.0) th/mm3 RBC (4.50-5.90) mil/mm3 Hgb (13.0-17.0) gm/dL Hct (39.0-51.0) % MCV (80.0-100.0) fL MCH (27.0-34.0) pg MCHC (32.0-36.0) % RDW (11.6-17.2) % Plt Count (150-450) th/mm3 MPV (7.0-11.0) fL Prelim Diff (Auto) Neut % (Auto) (16.0-70.0) % Lymph % (Auto) (9.0-44.0) % [place] % (Auto) (0.0-8.0) % Eos % (Auto) (0.0-4.0) % Baso % (Auto) (0.0-2.0) % Neut # (Auto) (1.8-7.7) th/mm3 Lymph # (Auto) (1.0-4.8) th/mm3 [place] # (Auto) (0.0-0.9) th/mm3 Eos # (Auto) (0.0-0.4) th/mm3 Baso # (Auto) (0.0-0.2) th/mm3 WBC Differential Diff Scan Differential Comment PT (9.8-11.6) sec INR Ratio APTT (24.3-30.1) sec Puncture Site Patient Temperature O2 Saturation (90-100) % ABG pH (7.380-7.420) ABG pCO2 (38-42) mmHg ABG pO2 (61-120) mmHg ABG HCO3 (22-26) mmol/L ABG O2 Content (12.0-20.0) Vol % ABG Base Excess (-2-2) mmol/L ABG Methemoglobin (0-2) % Allan Test Hemoglobin (12.0-16.0) G/DL Carboxyhemoglobin (0-4) % Inspired O2 % Critical Value Sodium (136-145) meq/L Potassium (3.5-5.1) meq/L Chloride (98-107) meq/L Carbon Dioxide (21.0-32.0) meq/L Anion Gap (5-15) meq/L BUN (7-18) mg/dL Creatinine (0.60-1.30) mg/dL Estimated GFR (>89) mL/min Random Glucose (74-106) mg/dL Lactic Acid (0.4-2.0) mmol/L Calcium (8.5-10.1) mg/dL Total Bilirubin (0.2-1.0) mg/dL AST (15-37) U/L ALT (12-78) U/L Alkaline Phosphatase (45-117) U/L Ammonia 26 (11-32) mcmol/L Total Creatine Kinase (39-308) U/L Troponin I (0.02-0.05) ng/mL Total Protein (6.4-8.2) g/dL Albumin (3.4-5.0) g/dL Urine Color Yellow (Yellw/Straw) Urine Clarity Clear (Clear) Urine pH 5.0 (5.0-8.5) Ur Specific [place] 1.014 (1.002-1.035) Urine Protein Negative (Neg-Trace) mg/dL Urine Glucose (UA) Negative (Negative) mg/dL Urine Ketones Negative (Negative) mg/dL Urine Occult Blood Negative (Negative) Urine Nitrate Negative (Negative) Urine Bilirubin Negative (Negative) Urine Urobilinogen Less than 2 (Less than 2) mg/dL Ur Leukocyte Esterase Small H (Negative) Urine RBC 1 (0-3) /hpf Urine WBC 14 H (0-5) /hpf Ur Squamous Epith Cells 1 (0-5) /hpf Urine Bacteria Rare H (None) /hpf Hyaline Casts 1 (0-3) /lpf Waxy Casts 3 (None) /lpf Urine Mucus Few H (Occasional) /lpf Micro UA Comment Culture indicated Urine Culture Comments Culture indicated Urine Opiates Screen Pos H (Neg) Acetaminophen (10.0-30.0) mcg/mL Ur Barbiturates Screen Neg (Neg) Ur Amphetamines Screen Neg (Neg) U Benzodiazepines Scrn Neg (Neg) Urine Cocaine Screen Neg (Neg) U Cannabinoids Screen Neg (Neg) Serum Alcohol (0-5) mg/dL Imaging Data Attestation: I personally reviewed and interpreted this imaging study as follows : Radiologist's impression: Chest X-Ray 04/17/18 12:04 CONCLUSION: Cardiomegaly with mild prominence in interstitial likely related to pulmonary venous hypertension or mild edema. Head CT 04/17/18 12:04 CONCLUSION: 1. No acute abnormality seen. 2. 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 3. 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 4. Low-density in the cerebral white matter likely related to small vessel ischemic change. . Discharge Plan Discharge Disposition Patient Disposition: 30 Still Patient Discharge Condition Condition: Stable Discharge Details Diagnosis: Altered mental status, Drug overdose, COPD (chronic obstructive pulmonary disease), Hypercarbia Physicians Team ED Provider: Malcolm Marley ED Midlevel Provider: Haley Astorga Primary Care Provider: UNKNOWN, Rxs /Orders / Referrals /Forms Prescriptions: No Action albuterol sulfate 0.63 mg/3 mL Solution For Nebulization 0.63 mg INHALATION Q4H RF: 0 insulin glargine 100 unit/mL Solution 30 unit SUB-Q DAILY RF: 0 diltiazem HCl 240 mg Capsule,Extended Release 24 Hr 240 mg PO DAILY RF: 0 aspirin [Aspir-81] 81 mg Tablet,Delayed Release (Dr/Ec) 81 mg PO DAILY RF: 0 spironolactone 25 mg Tablet 25 mg PO DAILY RF: 0 pantoprazole [Protonix] 20 mg Tablet,Delayed Release (Dr/Ec) 20 m PO DAILY RF: 0 lisinopril 10 mg Tablet 10 mg PO DAILY RF: 0 warfarin [Coumadin] 5 mg Tablet 5 mg PO DAILY RF: 0 pregabalin [Lyrica] 100 mg Capsule 100 mg PO BID RF: 0 ibuprofen 800 mg Tablet 800 mg PO Q8H 3 Days Qty: 9 RF: 0 hydrocodone-acetaminophen 5-325 mg Tablet 1 tab PO Q4H PRN (Reason: Acute Pain) Qty: 18 RF: 0 sennosides-docusate sodium [Senna Plus] 8.6-50 mg Tablet 1 tab PO BID Qty: 20 RF: 0 metoprolol tartrate 25 mg Tablet 25 mg PO BID Qty: 60 RF: 0 budesonide-formoterol [Symbicort] 160-4.5 mcg/actuation Hfa Aerosol Inhaler 2 puff INH BID Qty: 1 RF: 0 cyclobenzaprine 10 mg Tablet 10 mg PO TID PRN (Reason: Muscle Spasm) Qty: 12 RF: 0 Discharge Interventions Interventions: Vital Signs Last Done: 04/17/18 11:41 Status ED Status: Admitted Observation Patient
[2018-04-17 12:41] LABS: ABG PCO2 57 mmHg (38-42); ABG PO2 76 mmHg (61-120)
[2018-04-17 12:44] LABS: Baso # (Auto) 0.1 th/mm3 (0.0-0.2); Baso % (Auto) 1.1 % (0.0-2.0); Eos # (Auto) 0.1 th/mm3 (0.0-0.4); Eos % (Auto) 1.2 % (0.0-4.0); Hematocrit 31.5 % (39.0-51.0); Hemoglobin 9.6 gm/dL (13.0-17.0); Lymph # (Auto) 1.7 th/mm3 (1.0-4.8); Lymph % (Auto) 15.7 % (9.0-44.0); Mean Corpuscular Hemoglobin 24.6 pg (27.0-34.0); Mean Corpuscular Volume 80.4 fL (80.0-100.0); Mean Platelet Volume 8.7 fL (7.0-11.0); Mono # (Auto) 0.8 th/mm3 (0.0-0.9); Mono % (Auto) 6.8 % (0.0-8.0); Neut # (Auto) 8.4 th/mm3 (1.8-7.7); Neut % (Auto) 75.2 % (16.0-70.0); Platelet Count 270 th/mm3 (150-450); Red Blood Count 3.92 mil/mm3 (4.50-5.90); Red Cell Distribution Width 20.4 % (11.6-17.2); White Blood Count 11.2 th/mm3 (4.0-11.0)
[2018-04-17 12:45] LABS: Mean Corpuscular HGB Conc 30.6 % (32.0-36.0)
[2018-04-17] MEDS ORDERED: Naloxone Inj 0.4 MG/ML Vial IV.PUSH ONE ×2 (12:49→16:10)
[2018-04-17 12:51] LABS: Amphetamine Screen,Urine Neg (Neg); Barbiturate Screen,Urine Neg (Neg); Cannabinoid Screen,Urine Neg (Neg); Cocaine Screen,Urine Neg (Neg)
[2018-04-17 12:52] LABS: Bacteria,Urine Rare /hpf; Bilirubin,Urine Negative (Negative); Clarity,Urine Clear (Clear); Color,Urine Yellow (Yellw/Straw); Glucose,Urine (UA) Negative (Negative); Hyaline Casts,Urine 1 /lpf (0-3); Leukocyte Esterase,Urine Small (Negative); Mucus,Urine Few /lpf (Occasional); Nitrite,Urine Negative (Negative); Specific Gravity,Urine 1.014 (1.002-1.035); Squamous Epithelial Cell,Urine 1 /hpf (0-5)
[2018-04-17 12:52] LABS: Activated Partial Thrombo Time 22.6 sec (24.3-30.1); INR 1.6 Ratio; Prothrombin Time 15.7 sec (9.8-11.6)
[2018-04-17 12:58] LABS: Opiate Screen,Urine Pos (Neg)
--- NOTE | 2018-04-17 12:59 | XR ---
EXAM DATE: 04/17/2018 12:32 PM EDT AGE/SEX: 63 years / Male INDICATIONS: Short of breath CLINICAL DATA: This is the patient's initial encounter. Patient reports that signs and symptoms have been present for 1 day and indicates a pain score of Nonresponsive. MEDICAL/SURGICAL HISTORY: Non-responsive. Deep venous thrombosis. Hypertension. Diabetes. Hype rlipidemia. Myocardial infarction. Stroke. Non-responsive. Left leg amputation. [place] [facility] [place] [facility] [place]. . FINDINGS: There is an [id number] in place from the left internal jugular approach. The heart size is enlarge d. There is some prominence of the interstitial markings and indistinctness of pulmonary vasculature. No focal consolidation is not seen. No effusion is seen. CONCLUSION: Cardiomegaly with mild prominence in interstitial likely related to pulmonary venous hypertension or mild edema. Electronically signed by: Jorge Alberto De León MD 04/17/2018 12:57 PM EDT
--- NOTE | 2018-04-17 13:05 | CT ---
EXAM DATE: 04/17/2018 12:55 PM EDT AGE/SEX: 63 years / Male INDICATIONS: Altered mental status. CLINICAL DATA: This is the patient's initial encounter. Patient reports that signs and symptoms have been present for 1 day and indicates a pain score of 0/10. MEDICAL/SURGICAL HISTORY: Diabetes. Hypertension. Cardiovascular disease. stroke . Below knee a mputation left leg RADIATION DOSE: 56.35 CTDI (mGy) COMPARISON: No prior exams available for comparison. TECHNIQUE: CT of the head without contrast. Using automated exposure control and adjustment of the mA and/or kV according to patient size, radiation dose was kept as low as reasonably achievable to ob tain optimal diagnostic quality images. DICOM format image data is available electronically for revi ew and comparison. FINDINGS: Cerebrum: There is an aneurysm clip seen in the right sylvian fissure region. The patient is status p ost right craniotomy. There are old lacunar infarcts at the right caudate head and anterior right bas al ganglia. There is decreased density in the periventricular white matter. The ventricles are normal for age. No evidence of midline shift, mass lesion, hemorrhage or acute infarction. No extraaxial fluid collections are seen. Posterior Fossa: The cerebellum and brainstem are intact. The 4th ventricle is midline. The cerebe llopontine angle is unremarkable. Extracranial: The visualized portion of the orbits is intact. Skull: The calvaria is intact. No evidence of skull fracture. CONCLUSION: 1. No acute abnormality seen. 2. 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 3. 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 4. Low-density in the cerebral white matter likely related to small vessel ischemic change. . Electronically signed by: Jorge Alberto De Lóen MD 04/17/2018 1:03 PM EDT
[2018-04-17 13:08] LABS: Alanine Aminotransferase 8 U/L (12-78); Albumin 2.7 g/dL (3.4-5.0); Alkaline Phosphatase 45 U/L (45-117); Anion Gap 9 meq/L (5-15); Aspartate Aminotransferase 10 U/L (15-37); Blood Urea Nitrogen 13 mg/dL (7-18); Calcium 8.2 mg/dL (8.5-10.1); Carbon Dioxide 27.2 meq/L (21.0-32.0); Chloride 102 meq/L (98-107); Glomerular Filtration Rate 80 mL/min (>89); Glucose,Random 141 mg/dL (74-106); Potassium 3.7 meq/L (3.5-5.1); Sodium 138 meq/L (136-145); Total Protein 6.8 g/dL (6.4-8.2)
[2018-04-17 13:14] LABS: Creatine Kinase 88 U/L (39-308)
--- NOTE | 2018-04-17 13:44 | ECG ---
Date Performed: 04/17/2018 Time Performed: 11:34:51 PTAGE: 63 years EKG: Sinus rhythm POSSIBLE RIGHT VENTRICULAR CONDUCTION DELAY BORDERLINE ECG Since the PREVIOUS TRACING , no significant change noted PREVIOUS TRACING DOCTOR: Bg Curiel Interpretating Date/Time 04/17/2018 13:43:21
--- NOTE | 2018-04-17 15:59 | P.HP ---
History of Present Illness Primary Care Physician: UNKNOWN History of Present Illness: 63-year-old white male being admitted for unresponsiveness suspected to be secondary to opiate overdose Patient was brought in by [facility] which was called by the patient's when she found him unresponsive at home today. 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 Head CT was performed in the emergency department which was negative. VS showed normotension, R varying from 12-17. Blood work overall appears to be unremarkable as well. Patient was given 1 dose of Narcan prior to arriving to ER as well as another dose in the ER. His pupils went from pinpoint to slightly dilated and the patient went from being unresponsive to heavy sternal rub to being responsive to moderate sternal rub. Currently is on nasal cannula and his blood gas appears to be at its chronic level with a PCO2 around the 50s. Chest x-ray which I apparently reviewed is negative for any acute findings. Patient is apparently on 2 L of nasal cannula at home. Unable to obtain FH nor SH directly from patient due to mental status. Review of Systems unobtainable due to mental status PMFSH - History History Provided By: Medical Record - Medical History Medical History: Medical History (Last Reviewed 04/17/18 @ 14:51 by NATALIE Medina) Complete below knee amputation of left lower extremity (Acute) Depression (Acute) Hypertension (Acute) Stroke (Acute) Myocardial infarct (Acute) Hyperlipidemia (Acute) DVT (deep venous thrombosis) (Acute) Diabetes (Acute) - Tobacco History Second Hand Smoke Exposure: Yes Tobacco Use In Past 30 Days: Yes Smoking Status: Current every day smoker Tobacco Type: Cigarettes - Alcohol History How Often Do You Have a Drink Containing Alcohol: Unable to Obtain - Substance Use History Substance History: Unable to Obtain - Travel History Recent Travel in the [place] Within the Last 8 Weeks: No Recent Travel Out of the Country Within the Last 8 Weeks: No - Immunization History Tetanus Immunization: Unable to Assess Hx Influenza Vaccine This Season: Unable to Assess Medications and Allergies Active Medications: Active Medications Budesonide/Formoterol Fumarate (Symbicort 160/4.5 Mcg Inh) 2 puff INH BID JAMIE Sodium Chloride (Ns Flush) 2 ml IV.FLUSH BID JAMIE Sodium Chloride (Ns Flush) 2 ml IV.FLUSH UNSCH PRN PRN Reason: FLUSH AFTER USING IV ACCESS Allergies Allergy/AdvReac Type Severity Reaction Status Date / Time diatrizoate meglumine Allergy Severe SHOCK Verified 04/17/18 11:34 gadobenic acid Allergy Severe SHOCK Verified 04/17/18 11:34 gadodiamide Allergy Severe SHOCK Verified 04/17/18 11:34 gadoteridol Allergy Severe SHOCK Verified 04/17/18 11:34 iodine Allergy Severe Difficulty Verified 04/17/18 11:34 Breathing iodixanol Allergy Severe SHOCK Verified 04/17/18 11:34 iohexol Allergy Severe SHOCK Verified 04/17/18 11:34 potassium iodide Allergy Severe Difficulty Verified 04/17/18 11:34 Breathing povidone-iodine Allergy Severe Difficulty Verified 04/17/18 11:34 Breathing sodium iodide Allergy Severe Difficulty Verified 04/17/18 11:34 Breathing sodium iodide Allergy Severe Difficulty Verified 04/17/18 11:34 Breathing MRI PRECAUTION Allergy Severe ANEURSYM Uncoded 04/13/18 12:59 CLIPPING Home Medications Medication Instructions Recorded Confirmed Type albuterol sulfate 0.63 mg INHALATION Q4H 04/13/18 04/17/18 History aspirin [Aspir-81] 81 mg PO DAILY 04/13/18 04/17/18 History diltiazem HCl 240 mg PO DAILY 04/13/18 04/17/18 History insulin glargine 30 unit SUB-Q DAILY 04/13/18 04/17/18 History lisinopril 10 mg PO DAILY 04/13/18 04/17/18 History pantoprazole [Protonix] 20 m PO DAILY 04/13/18 04/17/18 History spironolactone 25 mg PO DAILY 04/13/18 04/17/18 History warfarin [Coumadin] 5 mg PO DAILY 04/13/18 04/17/18 History Exam Vital signs: Vital Signs 04/17/18 11:41 04/17/18 11:44 04/17/18 12:27 Temperature 97.5 F L Pulse Rate 67 Respiratory Rate 12 12 Blood Pressure 135/63 Pulse Oximetry 93 L 94 L 04/17/18 13:00 04/17/18 14:00 04/17/18 15:00 Temperature Pulse Rate 82 62 68 Respiratory Rate 17 14 14 Blood Pressure 129/61 Pulse Oximetry 95 98 95 Intake & Output 04/16/18 04/17/18 04/17/18 18:59 06:59 18:59 Weight 136.078 kg Narrative: VS: afebrile GENERAL: Obese white male, lying in bed, sleeping SKIN: Warm and dry. EYES: Pupils equal and round which are reactive to light. No scleral icterus. No injection or drainage. ENT: No nasal bleeding or discharge. Does not cooperate and open his mouth oral examination CARDIOVASCULAR: Regular rate and rhythm. no murmurs RESPIRATORY: No accessory muscle use. Clear to auscultation. Breath sounds equal bilaterally. GASTROINTESTINAL: Abdomen soft, non-tender, nondistended. Extremities: No clubbing, cyanosis, or edema. left BKA MUSCULOSKELETAL: adequate muscle bulk and tone for age and habitus NEUROLOGICAL: Hypersomnolent. Wakes up upon deep palpation of his abdomen or a very deep sternal rub to which he responds" hi" and then goes back to being hypersomnolent and unresponsive. PSYCHIATRIC: unable to assess due to hypersomnolence Results - Labs CBC & Chem 7: 04/17/18 12:00 04/18/18 04:57 Labs: Laboratory Results - last 24 hr 04/17/18 04/17/18 04/17/18 12:00 12:00 12:00 WBC 11.2 H RBC 3.92 L Hgb 9.6 L Hct 31.5 L MCV 80.4 MCH 24.6 L MCHC 30.6 L RDW 20.4 H Plt Count 270 MPV 8.7 Prelim Diff (Auto) Slide review pending Neut % (Auto) 75.2 H Lymph % (Auto) 15.7 [place] % (Auto) 6.8 Eos % (Auto) 1.2 Baso % (Auto) 1.1 Neut # (Auto) 8.4 H Lymph # (Auto) 1.7 [place] # (Auto) 0.8 Eos # (Auto) 0.1 Baso # (Auto) 0.1 WBC Differential . Diff Scan Auto diff confirmed Differential Comment . PT 15.7 H INR 1.6 APTT 22.6 L Puncture Site Patient Temperature O2 Saturation ABG pH ABG pCO2 ABG pO2 ABG HCO3 ABG O2 Content ABG Base Excess ABG Methemoglobin Allan Test Hemoglobin Carboxyhemoglobin Inspired O2 Critical Value Sodium 138 Potassium 3.7 Chloride 102 Carbon Dioxide 27.2 Anion Gap 9 BUN 13 Creatinine 0.95 Estimated GFR 80 L Random Glucose 141 H Lactic Acid Calcium 8.2 L Total Bilirubin 0.3 AST 10 L ALT 8 L Alkaline Phosphatase 45 Ammonia Total Creatine Kinase 88 Troponin I Less than 0.02 L Total Protein 6.8 D Albumin 2.7 L Urine Color Urine Clarity Urine pH Ur Specific Walsh Urine Protein Urine Glucose (UA) Urine Ketones Urine Occult Blood Urine Nitrate Urine Bilirubin Urine Urobilinogen Ur Leukocyte Esterase Urine RBC Urine WBC Ur Squamous Epith Cells Urine Bacteria Hyaline Casts Waxy Casts Urine Mucus Micro UA Comment Urine Culture Comments Urine Opiates Screen Acetaminophen Ur Barbiturates Screen Ur Amphetamines Screen U Benzodiazepines Scrn Urine Cocaine Screen U Cannabinoids Screen Serum Alcohol Less than 3 04/17/18 04/17/18 04/17/18 12:00 12:04 12:15 WBC RBC Hgb Hct MCV MCH MCHC RDW Plt Count MPV Prelim Diff (Auto) Neut % (Auto) Lymph % (Auto) [place] % (Auto) Eos % (Auto) Baso % (Auto) Neut # (Auto) Lymph # (Auto) [place] # (Auto) Eos # (Auto) Baso # (Auto) WBC Differential Diff Scan Differential Comment PT INR APTT Puncture Site Right radial Patient Temperature 98.6 O2 Saturation 92 ABG pH 7.33 L ABG pCO2 57 H* ABG pO2 76 ABG HCO3 30 H ABG O2 Content 13.4 ABG Base Excess 4.0 H ABG Methemoglobin 0.5 Allan Test Present Hemoglobin 10.3 L Carboxyhemoglobin 1.7 Inspired O2 21 Critical Value Yes Sodium Potassium Chloride Carbon Dioxide Anion Gap BUN Creatinine Estimated GFR Random Glucose Lactic Acid 1.3 Calcium Total Bilirubin AST ALT Alkaline Phosphatase Ammonia Total Creatine Kinase Troponin I Total Protein Albumin Urine Color Urine Clarity Urine pH Ur Specific Walsh Urine Protein Urine Glucose (UA) Urine Ketones Urine Occult Blood Urine Nitrate Urine Bilirubin Urine Urobilinogen Ur Leukocyte Esterase Urine RBC Urine WBC Ur Squamous Epith Cells Urine Bacteria Hyaline Casts Waxy Casts Urine Mucus Micro UA Comment Urine Culture Comments Urine Opiates Screen Acetaminophen Less than 2.0 L Ur Barbiturates Screen Ur Amphetamines Screen U Benzodiazepines Scrn Urine Cocaine Screen U Cannabinoids Screen Serum Alcohol 04/17/18 04/17/18 04/17/18 12:15 12:15 12:15 WBC RBC Hgb Hct MCV MCH MCHC RDW Plt Count MPV Prelim Diff (Auto) Neut % (Auto) Lymph % (Auto) [place] % (Auto) Eos % (Auto) Baso % (Auto) Neut # (Auto) Lymph # (Auto) [place] # (Auto) Eos # (Auto) Baso # (Auto) WBC Differential Diff Scan Differential Comment PT INR APTT Puncture Site Patient Temperature O2 Saturation ABG pH ABG pCO2 ABG pO2 ABG HCO3 ABG O2 Content ABG Base Excess ABG Methemoglobin Allan Test Hemoglobin Carboxyhemoglobin Inspired O2 Critical Value Sodium Potassium Chloride Carbon Dioxide Anion Gap BUN Creatinine Estimated GFR Random Glucose Lactic Acid Calcium Total Bilirubin AST ALT Alkaline Phosphatase Ammonia 26 Total Creatine Kinase Troponin I Total Protein Albumin Urine Color Yellow Urine Clarity Clear Urine pH 5.0 Ur Specific Walsh 1.014 Urine Protein Negative Urine Glucose (UA) Negative Urine Ketones Negative Urine Occult Blood Negative Urine Nitrate Negative Urine Bilirubin Negative Urine Urobilinogen Less than 2 Ur Leukocyte Esterase Small H Urine RBC 1 Urine WBC 14 H Ur Squamous Epith Cells 1 Urine Bacteria Rare H Hyaline Casts 1 Waxy Casts 3 Urine Mucus Few H Micro UA Comment Culture indicated Urine Culture Comments Culture indicated Urine Opiates Screen Pos H Acetaminophen Ur Barbiturates Screen Neg Ur Amphetamines Screen Neg U Benzodiazepines Scrn Neg Urine Cocaine Screen Neg U Cannabinoids Screen Neg Serum Alcohol - Imaging Impressions Chest X-Ray 04/17/18 12:04 CONCLUSION: Cardiomegaly with mild prominence in interstitial likely related to pulmonary venous hypertension or mild edema. Head CT 04/17/18 12:04 CONCLUSION: 1. No acute abnormality seen. 2. 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 3. 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 4. Low-density in the cerebral white matter likely related to small vessel ischemic change. . Caprini VTE Risk Assessment Caprini VTE Risk Assessment: Moderate/High Risk (score >= 2) Caprini Risk Assessment Model: Point Value = 1 Point Value = 2 Point Value = 3 Point Value = 5 Age 41-60 Minor surgery BMI > 25 kg/m2 Swollen legs Varicose veins or History of unexplained or recurrent spontaneous Oral contraceptives or hormone replacement Sepsis (< 1 month) Serious lung disease, including pneumonia (< 1 month) Abnormal pulmonary function Acute myocardial infarction Congestive heart failure (< 1 month) History of inflammatory bowel disease Medical patient at bed rest Age 61-74 Arthroscopic surgery Major open surgery (> 45 min) Laparoscopic surgery (> 45 min) Malignancy Confined to bed (> 72 hours) Immobilizing plaster cast Central venous access Age >= 75 History of VTE Family history of VTE Factor V Leiden Prothrombin [id number] Lupus anticoagulant Anticardiolipin antibodies Elevated serum homocysteine Heparin-induced thrombocytopenia Other congenital or acquired thrombophilia Stroke (< 1 month) Elective arthroplasty Hip, pelvis, or leg fracture Acute spinal cord injury (< 1 month) Prophylaxis Regimen: Total Risk Factor Score Risk Level Prophylaxis Regimen 0-1 Low Early ambulation 2 Moderate Order ONE of the following: *Sequential Compression Device (SCD) *Heparin 5000 units SQ BID 3-4 Higher Order ONE of the following medications: *Heparin 5000 units SQ TID *Enoxaparin/Lovenox 40 mg SQ daily (WT < 150 kg, CrCl > 30 mL/min) *Enoxaparin/Lovenox 30 mg SQ daily (WT < 150 kg, CrCl > 10-29 mL/min) *Enoxaparin/Lovenox 30 mg SQ BID (WT < 150 kg, CrCl > 30 mL/min) AND/OR *Sequential Compression Device (SCD) 5 or more Highest Order ONE of the following medications: *Heparin 5000 units SQ TID (Preferred with Epidurals) *Enoxaparin/Lovenox 40 mg SQ daily (WT < 150 kg, CrCl > 30 mL/min) *Enoxaparin/Lovenox 30 mg SQ daily (WT < 150 kg, CrCl > 10-29 mL/min) *Enoxaparin/Lovenox 30 mg SQ BID (WT < 150 kg, CrCl > 30 mL/min) AND *Sequential Compression Device (SCD) Assessment and Plan - Plan 63-year-old patient being admitted for unresponsiveness. Unresponsiveness Appears to be secondary to opiate overdose given the response to Narcan Keep on telemetry, will need bedside through nursing swallow Hold all opiates, pregabilin, and home flexeril -Will give another dose of Narcan Head CT is negative -EKG and CXR which I independently reviewed are negative for any acute signs of ischemia or infarction or infiltrates respectively -We will consult psychiatry since this is the patient's second time of being admitted to the hospital suspected to be secondary to a opiate overdose within 72 hours. -if no improvement in somnolence, proceed w/ neuro workup -Given the patient most recently had a negative urine culture, his current urine specimen is likely going to show the same thing. I will not start antibiotics at this time. -cbc and bmp neg, BMP in AM if no improvement by then COPD chronic resp failure -Continue home Symbicort and duo nebs, chest x-ray negative -O2 supplementation right shoulder OA May use NSAIDs when the patient wakes up, otherwise refrain from all opiates History of DVT We will bridge with Lovenox for now given his subtherapeutic INR and continue with warfarin once patient is able to wake up and tolerate p.o. intake Hypertension/chronic stable dCHF Continue home medicines of aspirin, diltiazem, lisinopril, spironolactone, and metoprolol once patient is able to wake up and tolerate p.o. intake Otherwise as needed Vasotec Diabetes -SS w/ accuchekcs lovenox, warfarin
[2018-04-17] MEDS: Enoxaparin Inj 100 MG/ML Syringe SQ SCH (21:03)
[2018-04-17] MEDS: Budesonide-Formoterol 160/4.5 MCG 6 GM Inhaler INH SCH (22:38)
[2018-04-18 05:40] LABS: Anion Gap 6 meq/L (5-15); Blood Urea Nitrogen 9 mg/dL (7-18); Calcium 8.4 mg/dL (8.5-10.1); Carbon Dioxide 33.3 meq/L (21.0-32.0); Chloride 106 meq/L (98-107); Glomerular Filtration Rate Greater Than 89 mL/min (>89); Glucose,Random 102 mg/dL (74-106); Potassium 3.5 meq/L (3.5-5.1); Sodium 145 meq/L (136-145)
--- NOTE | 2018-04-18 09:23 | P.PN ---
Subjective Interval history: Follow-up visit questionable overdose of narcotics, altered mental status, COPD , hypercapnic respiratory failure. Patient seen and examined today. Awake and alert. On O2 nasal cannula. Continues to complain of right shoulder pain, and neuropathic pain on his leg. Denies SOB/ dyspnea. Denies chest pain, palpitations, headaches, dizziness. Denies fevers, chills, n/v/d. Denies dysuria. Physical Exam Vital signs: Vital Signs 04/17/18 11:41 04/17/18 11:44 04/17/18 12:27 Temperature 97.5 F L Pulse Rate 67 Respiratory Rate 12 12 Blood Pressure 135/63 Pulse Oximetry 93 L 94 L 04/17/18 13:00 04/17/18 14:00 04/17/18 15:00 Temperature Pulse Rate 82 62 68 Respiratory Rate 17 14 14 Blood Pressure 129/61 Pulse Oximetry 95 98 95 04/17/18 16:00 04/17/18 19:35 04/17/18 20:00 Temperature 98.3 F Pulse Rate 61 84 83 Respiratory Rate 14 15 Blood Pressure 111/54 L 160/72 H 125/59 L Pulse Oximetry 100 94 L 04/18/18 00:01 04/18/18 08:46 04/18/18 08:56 Temperature Pulse Rate 74 78 Respiratory Rate Blood Pressure 128/60 Pulse Oximetry 95 Intake & Output 04/17/18 04/18/18 04/18/18 18:59 06:59 18:59 Weight 136.078 kg 147.418 kg Other: Weight On Admission 147.418 kg Narrative: GENERAL: This is a well-nourished, well-developed patient, in no apparent distress. SKIN: Warm and dry. HEENT: Normocephalic. Pupils equal round and reactive. Nose without bleeding. Airway patent. NECK: Trachea midline. Supple. CARDIOVASCULAR: Regular rate and rhythm without murmurs, gallops, or rubs. RESPIRATORY: Clear to auscultation. Breath sounds equal bilaterally. No wheezes , rales, or rhonchi. GASTROINTESTINAL: Abdomen soft, non-tender, nondistended. Bowel Sounds normoactive x4. MUSCULOSKELETAL: Extremities without clubbing, cyanosis. Right lower extremity stasis dermatitis, +2 edema NEUROLOGICAL: Awake and alert. Oriented to time, place, person. Moves all extremities. Normal speech. Left hand tremors noted. Results - Labs CBC & Chem 7: 04/17/18 12:00 04/18/18 04:57 Laboratory Results - last 24 hr 04/17/18 04/17/18 04/17/18 12:00 12:00 12:00 WBC 11.2 H RBC 3.92 L Hgb 9.6 L Hct 31.5 L MCV 80.4 MCH 24.6 L MCHC 30.6 L RDW 20.4 H Plt Count 270 MPV 8.7 Prelim Diff (Auto) Slide review pending Neut % (Auto) 75.2 H Lymph % (Auto) 15.7 [place] % (Auto) 6.8 Eos % (Auto) 1.2 Baso % (Auto) 1.1 Neut # (Auto) 8.4 H Lymph # (Auto) 1.7 [place] # (Auto) 0.8 Eos # (Auto) 0.1 Baso # (Auto) 0.1 WBC Differential . Diff Scan Auto diff confirmed Differential Comment . PT 15.7 H INR 1.6 APTT 22.6 L Puncture Site Patient Temperature O2 Saturation ABG pH ABG pCO2 ABG pO2 ABG HCO3 ABG O2 Content ABG Base Excess ABG Methemoglobin Allan Test Hemoglobin Carboxyhemoglobin Inspired O2 Critical Value Sodium 138 Potassium 3.7 Chloride 102 Carbon Dioxide 27.2 Anion Gap 9 BUN 13 Creatinine 0.95 Estimated GFR 80 L POC Glucose Random Glucose 141 H Lactic Acid Calcium 8.2 L Magnesium Total Bilirubin 0.3 AST 10 L ALT 8 L Alkaline Phosphatase 45 Ammonia Total Creatine Kinase 88 Troponin I Less than 0.02 L Total Protein 6.8 D Albumin 2.7 L Urine Color Urine Clarity Urine pH Ur Specific [place] Urine Protein Urine Glucose (UA) Urine Ketones Urine Occult Blood Urine Nitrate Urine Bilirubin Urine Urobilinogen Ur Leukocyte Esterase Urine RBC Urine WBC Ur Squamous Epith Cells Urine Bacteria Hyaline Casts Waxy Casts Urine Mucus Micro UA Comment Urine Culture Comments Urine Opiates Screen Acetaminophen Ur Barbiturates Screen Ur Amphetamines Screen U Benzodiazepines Scrn Urine Cocaine Screen U Cannabinoids Screen Serum Alcohol Less than 3 04/17/18 04/17/18 04/17/18 12:00 12:04 12:15 WBC RBC Hgb Hct MCV MCH MCHC RDW Plt Count MPV Prelim Diff (Auto) Neut % (Auto) Lymph % (Auto) [place] % (Auto) Eos % (Auto) Baso % (Auto) Neut # (Auto) Lymph # (Auto) [place] # (Auto) Eos # (Auto) Baso # (Auto) WBC Differential Diff Scan Differential Comment PT INR APTT Puncture Site Right radial Patient Temperature 98.6 O2 Saturation 92 ABG pH 7.33 L ABG pCO2 57 H* ABG pO2 76 ABG HCO3 30 H ABG O2 Content 13.4 ABG Base Excess 4.0 H ABG Methemoglobin 0.5 Allan Test Present Hemoglobin 10.3 L Carboxyhemoglobin 1.7 Inspired O2 21 Critical Value Yes Sodium Potassium Chloride Carbon Dioxide Anion Gap BUN Creatinine Estimated GFR POC Glucose Random Glucose Lactic Acid 1.3 Calcium Magnesium Total Bilirubin AST ALT Alkaline Phosphatase Ammonia Total Creatine Kinase Troponin I Total Protein Albumin Urine Color Urine Clarity Urine pH Ur Specific [place] Urine Protein Urine Glucose (UA) Urine Ketones Urine Occult Blood Urine Nitrate Urine Bilirubin Urine Urobilinogen Ur Leukocyte Esterase Urine RBC Urine WBC Ur Squamous Epith Cells Urine Bacteria Hyaline Casts Waxy Casts Urine Mucus Micro UA Comment Urine Culture Comments Urine Opiates Screen Acetaminophen Less than 2.0 L Ur Barbiturates Screen Ur Amphetamines Screen U Benzodiazepines Scrn Urine Cocaine Screen U Cannabinoids Screen Serum Alcohol 04/17/18 04/17/18 04/17/18 12:15 12:15 12:15 WBC RBC Hgb Hct MCV MCH MCHC RDW Plt Count MPV Prelim Diff (Auto) Neut % (Auto) Lymph % (Auto) [place] % (Auto) Eos % (Auto) Baso % (Auto) Neut # (Auto) Lymph # (Auto) [place] # (Auto) Eos # (Auto) Baso # (Auto) WBC Differential Diff Scan Differential Comment PT INR APTT Puncture Site Patient Temperature O2 Saturation ABG pH ABG pCO2 ABG pO2 ABG HCO3 ABG O2 Content ABG Base Excess ABG Methemoglobin Allan Test Hemoglobin Carboxyhemoglobin Inspired O2 Critical Value Sodium Potassium Chloride Carbon Dioxide Anion Gap BUN Creatinine Estimated GFR POC Glucose Random Glucose Lactic Acid Calcium Magnesium Total Bilirubin AST ALT Alkaline Phosphatase Ammonia 26 Total Creatine Kinase Troponin I Total Protein Albumin Urine Color Yellow Urine Clarity Clear Urine pH 5.0 Ur Specific [place] 1.014 Urine Protein Negative Urine Glucose (UA) Negative Urine Ketones Negative Urine Occult Blood Negative Urine Nitrate Negative Urine Bilirubin Negative Urine Urobilinogen Less than 2 Ur Leukocyte Esterase Small H Urine RBC 1 Urine WBC 14 H Ur Squamous Epith Cells 1 Urine Bacteria Rare H Hyaline Casts 1 Waxy Casts 3 Urine Mucus Few H Micro UA Comment Culture indicated Urine Culture Comments Culture indicated Urine Opiates Screen Pos H Acetaminophen Ur Barbiturates Screen Neg Ur Amphetamines Screen Neg U Benzodiazepines Scrn Neg Urine Cocaine Screen Neg U Cannabinoids Screen Neg Serum Alcohol 04/17/18 04/17/18 04/18/18 17:00 22:47 04:57 WBC RBC Hgb Hct MCV MCH MCHC RDW Plt Count MPV Prelim Diff (Auto) Neut % (Auto) Lymph % (Auto) [place] % (Auto) Eos % (Auto) Baso % (Auto) Neut # (Auto) Lymph # (Auto) [place] # (Auto) Eos # (Auto) Baso # (Auto) WBC Differential Diff Scan Differential Comment PT INR APTT Puncture Site Patient Temperature O2 Saturation ABG pH ABG pCO2 ABG pO2 ABG HCO3 ABG O2 Content ABG Base Excess ABG Methemoglobin Allan Test Hemoglobin Carboxyhemoglobin Inspired O2 Critical Value Sodium 145 Potassium 3.5 Chloride 106 Carbon Dioxide 33.3 H Anion Gap 6 BUN 9 Creatinine 0.70 Estimated GFR Greater than 89 POC Glucose 112 H 127 H Random Glucose 102 Lactic Acid Calcium 8.4 L Magnesium 2.0 Total Bilirubin AST ALT Alkaline Phosphatase Ammonia Total Creatine Kinase Troponin I Total Protein Albumin Urine Color Urine Clarity Urine pH Ur Specific [place] Urine Protein Urine Glucose (UA) Urine Ketones Urine Occult Blood Urine Nitrate Urine Bilirubin Urine Urobilinogen Ur Leukocyte Esterase Urine RBC Urine WBC Ur Squamous Epith Cells Urine Bacteria Hyaline Casts Waxy Casts Urine Mucus Micro UA Comment Urine Culture Comments Urine Opiates Screen Acetaminophen Ur Barbiturates Screen Ur Amphetamines Screen U Benzodiazepines Scrn Urine Cocaine Screen U Cannabinoids Screen Serum Alcohol 04/18/18 08:49 WBC RBC Hgb Hct MCV MCH MCHC RDW Plt Count MPV Prelim Diff (Auto) Neut % (Auto) Lymph % (Auto) [place] % (Auto) Eos % (Auto) Baso % (Auto) Neut # (Auto) Lymph # (Auto) [place] # (Auto) Eos # (Auto) Baso # (Auto) WBC Differential Diff Scan Differential Comment PT INR APTT Puncture Site Patient Temperature O2 Saturation ABG pH ABG pCO2 ABG pO2 ABG HCO3 ABG O2 Content ABG Base Excess ABG Methemoglobin Allan Test Hemoglobin Carboxyhemoglobin Inspired O2 Critical Value Sodium Potassium Chloride Carbon Dioxide Anion Gap BUN Creatinine Estimated GFR POC Glucose 117 H Random Glucose Lactic Acid Calcium Magnesium Total Bilirubin AST ALT Alkaline Phosphatase Ammonia Total Creatine Kinase Troponin I Total Protein Albumin Urine Color Urine Clarity Urine pH Ur Specific [place] Urine Protein Urine Glucose (UA) Urine Ketones Urine Occult Blood Urine Nitrate Urine Bilirubin Urine Urobilinogen Ur Leukocyte Esterase Urine RBC Urine WBC Ur Squamous Epith Cells Urine Bacteria Hyaline Casts Waxy Casts Urine Mucus Micro UA Comment Urine Culture Comments Urine Opiates Screen Acetaminophen Ur Barbiturates Screen Ur Amphetamines Screen U Benzodiazepines Scrn Urine Cocaine Screen U Cannabinoids Screen Serum Alcohol - Imaging Impressions Chest X-Ray 04/17/18 12:04 CONCLUSION: Cardiomegaly with mild prominence in interstitial likely related to pulmonary venous hypertension or mild edema. Head CT 04/17/18 12:04 CONCLUSION: 1. No acute abnormality seen. 2. 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 3. 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 4. Low-density in the cerebral white matter likely related to small vessel ischemic change. . Assessment and Plan - Assessment (1) Respiratory failure with hypercapnia Code(s): J96.92 - Respiratory failure, unspecified with hypercapnia Status: Acute (2) Encephalopathy Code(s): G93.40 - Encephalopathy, unspecified Status: Acute (3) HTN (hypertension) Code(s): I10 - Essential (primary) hypertension Status: Acute (4) COPD (chronic obstructive pulmonary disease) Code(s): J44.9 - Chronic obstructive pulmonary disease, unspecified Status: Acute (5) DM (diabetes mellitus) Code(s): E11.9 - Type 2 diabetes mellitus without complications Status: Acute - Plan 63-year-old white male being admitted for unresponsiveness suspected to be secondary to opiate overdose Encephalopathy, toxic, medication induced -CT Head w/ no acute findings -Currently AA&Ox4. -Improved MS -Patient states that he was prescribed with opiates when he got discharge, however this medication has not been refilled nor he has taken any opiates. Patient states that he can call my pharmacist and you can call my to verify the information but I did not take any narcotic medication. Spoke with Bharath and verified with her, patient is on Lyrica according to he has pregabalin 100 mg every 6 hours as needed and also add baclofen ordered at home. Discussed with that this must be the contributing factor for the patient to become unresponsive retaining CO2. Verified with [facility] pharmacy the patient did not refill any medication. As per the medication has not been refilled but was dropped off at [facility] pharmacy. 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 We are going to lower dose of Lyrica for the patient and will hold off on the baclofen instead we are going to use lidocaine and Aspercreme for the patient and will continue occupational therapy when he goes home. is agreeable with the plan. Also discussed with plan for sleep study, BiPAP or CPAP use. Will refer to outpatient electronic sales and service technician Dr. Corado . COPD, Chronic Respiratory Failure w/ Acute Exacerbation Continues to smoke -Positive hypercapnia, pCO2 57, likely close to baseline however significant improvement on NC. -Monitor O2. DuoNeb prn, Symbicort -CXR showed cardiomegaly with mild prominence and interstitial likely related to pulmonary venous hypertension or mild edema. -Nicotine patch -Referral to outpatient pulmonology for sleep study may need BiPAP or CPAP use Right shoulder pain Neuropathic pain, leg -Occupational Therapy while in the hospital. Will continue in the outpatient home health care. -Lidocaine patch, Aspercreme -May able to take Tylenol alternating with ibuprofen for pain -Lyrica 25mg TID Abnormal UA -Treated for urinary tract infection with mixed gram cadence previously. Will hold off on antibiotics until cultures come back. Chronic Anticoagulation H/o DVT on Coumadin -Monitor INR. -Pharmacy to assist HTN, Uncontrolled. -Resume home meds aspirin 81 mg, diltiazem 240 mg, lisinopril 10 mg daily, Spironolactone 25 mg daily started on metoprolol 25 mg twice daily -Monitor BP trend -Improved DM -Sliding scale w/ Accu-Cheks. Tobacco Abuse -Counselled. Smokes 1/2ppd, down from 3ppd. -NicoDerm prn if needed. DVT Prophylaxis Coumadin Code Status: Full code Discussed Condition With: Patient, nursing Discharge Planning: Plan to DC home with home health care this afternoon if continues to improve (1) Respiratory failure with hypercapnia Qualifiers: Chronicity: acute on chronic Qualified Code(s): J96.22 - Acute and chronic respiratory failure with hypercapnia (4) COPD (chronic obstructive pulmonary disease) Qualifiers: COPD type: unspecified COPD Qualified Code(s): J44.9 - Chronic obstructive pulmonary disease, unspecified
[2018-04-18] MEDS: Budesonide-Formoterol 160/4.5 MCG 6 GM Inhaler INH SCH ×2 (09:34→20:16)
[2018-04-18] MEDS: Senna/Docusate Sodium 8.6/50 MG Tablet PO SCH ×2 (09:36→22:18)
[2018-04-18] MEDS: Metoprolol Tartrate 25 MG Tablet PO SCH ×2 (09:36→20:17)
[2018-04-18] MEDS: Spironolactone 25 MG Tablet PO SCH (09:36)
[2018-04-18] MEDS: Pantoprazole Sodium 20 MG DR Tablet PO SCH (09:37)
[2018-04-18] MEDS: Enoxaparin Inj 100 MG/ML Syringe SQ SCH ×2 (09:37→20:17)
[2018-04-18] MEDS: Insulin Detemir Inj 1,000 UNIT/10 ML Vial SQ SCH (09:37)
[2018-04-18] MEDS: dilTIAZem CD 240 MG Capsule PO SCH (09:38)
[2018-04-18] MEDS: Lisinopril 10 MG Tablet PO SCH (09:38)
[2018-04-18] MEDS: Nystatin 100,000 UNITS/GM Powder 15 GM Bottle TOPICAL SCH ×2 (09:39→20:16)
[2018-04-18] MEDS: Lidocaine 5% Patch T-DERMAL SCH (09:42)
--- NOTE | 2018-04-18 11:40 | P.DCO ---
- Diagnosis (2) Respiratory failure with hypercapnia - Physical Therapy Order: Evaluate and treat - Occupational Therapy Order: Evaluate and treat - Home Health Nursing Order: Medical education, Signs/symptoms of disease process, Oxygen administration education, Medication education-adverse effect, Nursing assessment with vital signs - Certification I have seen patient Jorge Alberto Contreras on 04/18/18. My clinical findings support the need for the requested home health care services because: Limited mobility due to disease progression, Patient has SOB, Deconditioned with increased weakness, Medication compliance is questionable, Limited ability to care for self, Impaired cognition/judgement I certify that my clinical findings support that this patient is homebound because: Impaired cognitive ability/safety, Hx COPD - exertion dyspnea/weakness, Unsteady gait/balance, Unsafe to leave home unassisted, Unable to use public transportation (2) Respiratory failure with hypercapnia Qualifiers: Chronicity: acute on chronic Qualified Code(s): J96.22 - Acute and chronic respiratory failure with hypercapnia
[2018-04-18] MEDS: Pregabalin 25 MG Capsule PO SCH ×2 (12:31→18:36)
[2018-04-19] MEDS ORDERED: Meloxicam 15 MG Tablet PO PRN (08:52)
--- NOTE | 2018-04-19 09:02 | P.PNIM ---
Subjective Interval history: Follow-up visit questionable overdose of narcotics, altered mental status, COPD , hypercapnic respiratory failure. The patient is awake, alert, and fully coherent and conversant today. He reports his PCP recently increase his Lyrica dose from 50 mg to 100 and this is what caused to him to be confused. He has COPD and is on 3 L of O2 at home, currently on 3 L and satting well. He does not ambulate at baseline and uses electric wheelchair. He was told 2 years ago that he did not need his CPAP at that time, but may need one in the future if symptoms worsen. He complains of chronic shoulder pain, agreeable to anti- inflammatories for now. He complains of nausea, but has been tolerating oral intake with no vomiting or diarrhea. Physical Exam Vital signs: Vital Signs 04/18/18 08:56 04/18/18 10:13 04/18/18 10:51 Temperature Pulse Rate 78 88 75 Respiratory Rate 18 Blood Pressure 128/60 Pulse Oximetry 04/18/18 12:05 04/18/18 12:07 04/18/18 16:03 Temperature 98.6 F 97.9 F 97.8 F Pulse Rate 72 70 76 Respiratory Rate 18 20 20 Blood Pressure 128/60 132/70 Pulse Oximetry 98 04/18/18 16:09 04/18/18 19:52 04/18/18 20:00 Temperature 98.9 F Pulse Rate 71 73 78 Respiratory Rate 18 16 17 Blood Pressure 111/68 Pulse Oximetry 96 95 04/19/18 03:34 04/19/18 08:00 Temperature 97.5 F L Pulse Rate 75 70 Respiratory Rate 8 L 22 Blood Pressure 176/81 H Pulse Oximetry 96 Intake & Output 04/18/18 04/19/18 04/19/18 18:59 06:59 18:59 Other: # Voids 5 Date of Last Bowel Movement 04/18/18 # Bowel Movements 1 Narrative: GENERAL: Well-developed well-nourished. Morbidly obese. In no acute distress. SKIN: Warm and dry. No lesions noted. HEENT: Normocephalic. Pupils equal and round. Mucous membranes pink and moist. CARDIOVASCULAR: Regular rate and rhythm. No murmur appreciated. RESPIRATORY: No accessory muscle use. Clear to auscultation. Breath sounds equal bilaterally. GASTROINTESTINAL: Abdomen soft, non-tender, nondistended. Bowel sounds x4. MUSCULOSKELETAL: Left BKA. No clubbing or cyanosis. No edema. NEUROLOGICAL: Awake and alert. No focal neurological deficits. Moves upper and lower extremities spontaneously. Normal speech. PSYCHIATRIC: Appropriate mood and affect; insight and judgment normal. Results - Labs CBC & Chem 7: 04/17/18 12:00 04/18/18 04:57 Laboratory Results - last 24 hr 04/18/18 04/18/18 04/19/18 08:49 21:11 08:32 POC Glucose 117 H 147 H 130 H Microbiology 04/17/18 12:15 Clean Catch Urine Urine Culture - Preliminary No growth in 24 hours Assessment and Plan - Plan 63-year-old white male being admitted for unresponsiveness suspected to be secondary to medication overdose/misuse Encephalopathy, possibly toxic due to medication misuse, possibly metabolic due to hypercapnia -CT Head w/ no acute findings -Currently AA&Ox4. -Improved MS -Lyrica decreased to 25 mg 3 times daily here and tolerating well -Would avoid home cyclobenzaprine and hydrocodone -Strongly encouraged close outpatient follow-up with PCP for pain control and repeat sleep study, patient verbalizes understanding COPD, Chronic Respiratory Failure Continues to smoke Possible obesity hypoventilation syndrome exacerbated by narcotics -Positive hypercapnia, pCO2 57, likely close to baseline however significant improvement on NC. -Continue home O2 at 3 L. -DuoNeb prn, Symbicort -CXR showed cardiomegaly with mild prominence and interstitial likely related to pulmonary venous hypertension or mild edema. -Nicotine patch -[facility], avoid sedating medications until follow-up -Avoid all sedating medication Right shoulder pain Neuropathic pain, leg Chronic conditions -Will continue in the outpatient with home health care PT/OT. -Lidocaine patch, Aspercreme -Tylenol as needed -Lyrica 25mg TID -We will add short course of meloxicam, however with avoid long-term use in combination with blood thinners Abnormal UA -Treated for urinary tract infection with mixed gram cadence previously. - Urine culture with no growth 24 hours. Chronic Anticoagulation H/o DVT on Coumadin -Monitor INR. -Pharmacy to assist Discussed Condition With: Patient, RN, Dr. Carolina Discharge Planning: Discharge home today with [facility]. Case management consulted for assistance.
[2018-04-19] MEDS: Lisinopril 10 MG Tablet PO SCH (09:13)
[2018-04-19] MEDS: Insulin Detemir Inj 1,000 UNIT/10 ML Vial SQ SCH (09:13)
[2018-04-19] MEDS: dilTIAZem CD 240 MG Capsule PO SCH (09:13)
[2018-04-19] MEDS: Spironolactone 25 MG Tablet PO SCH (09:14)
[2018-04-19] MEDS: Nystatin 100,000 UNITS/GM Powder 15 GM Bottle TOPICAL SCH (09:14)
[2018-04-19] MEDS: Metoprolol Tartrate 25 MG Tablet PO SCH (09:14)
[2018-04-19] MEDS: Pantoprazole Sodium 20 MG DR Tablet PO SCH (09:14)
[2018-04-19] MEDS: Senna/Docusate Sodium 8.6/50 MG Tablet PO SCH (09:15)
[2018-04-19] MEDS: Enoxaparin Inj 100 MG/ML Syringe SQ SCH (09:15)
[2018-04-19] MEDS: Lidocaine 5% Patch T-DERMAL SCH ×2 (09:15→09:25)
[2018-04-19] MEDS: Budesonide-Formoterol 160/4.5 MCG 6 GM Inhaler INH SCH (09:16)
[2018-04-19] MEDS: Pregabalin 25 MG Capsule PO SCH (09:17)
[2018-04-22 17:52] VITALS: PULSE 67
[2018-04-22 17:55] VITALS: RESP 16
[2018-04-22 18:01] VITALS: BP 176/81; TEMP 97.5
[2018-04-22 18:19] VITALS: O2SAT 97
== END 2018-04-19 12:03 | disposition home health service (06) ==
LOC: NEPGCP 11:19 → NEDA 11:19 → NEPE 11:19 → NEDA 19:30 → NEPGCP 19:56
PROVIDERS: ADMIT Hospitalist; ATTEND Hospitalist

== ENCOUNTER 2018-08-15 09:10 | Observation (INO) ==
[2018-08-15] MEDS ORDERED: Naloxone Inj 0.4 MG/ML Vial IV.PUSH ONE (09:36)
--- NOTE | 2018-08-15 09:44 | ED ---
HPI General Chief complaint: Abdominal Pain Stated complaint: Abd Pain Complaint Time Seen by Provider: 08/15/18 09:16 Source: patient Mode of arrival: ambulatory Limitations: no limitations History of Present Illness HPI narrative: 63yo M with PMH of COPD, h/o DVT on coumadin, neuropathic leg pain here with complaints of not feeling well and epigastric pain this morning. Pt falls asleep but is arousable with sternal rub. He did not admit to any drugs but he keeps falling sleep during the exam and history and is lethargic. Blood glucose normal. Denies any fever, chest pain, sob, focal weakness or numbness. Related Data Home Medications Medication Instructions Recorded Confirmed albuterol sulfate 0.63 mg INHALATION Q4H 04/13/18 08/15/18 lisinopril 5 mg PO DAILY 04/13/18 08/15/18 spironolactone 25 mg PO DAILY 04/13/18 08/15/18 diclofenac sodium [Voltaren] 2 g TOPICAL PRN PRN 08/15/18 08/15/18 diltiazem HCl [Cardizem CD] 240 mg PO DAILY 08/15/18 08/15/18 ferrous sulfate 324 mg PO DAILY 08/15/18 08/15/18 folic acid 1 mg PO DAILY 08/15/18 08/15/18 glipizide 10 mg PO BID 08/15/18 08/15/18 insulin glargine [Lantus U-100 40 unit SUBCUT DAILY 08/15/18 08/15/18 Insulin] lidocaine 1 applic TOPICAL DAILY PRN 08/15/18 08/15/18 metformin 500 mg PO BID 08/15/18 08/15/18 omeprazole 20 mg PO DAILY 08/15/18 08/15/18 pravastatin 60 mg PO DAILY 08/15/18 08/15/18 warfarin 5 mg PO 4XW 08/15/18 08/15/18 warfarin 10 mg PO 3XW 08/15/18 08/15/18 Previous Rx's Medication Instructions Recorded sulfamethoxazole-trimethoprim 1 tab PO Q12H #14 tab 08/16/18 [Bactrim DS] Allergies Allergy/AdvReac Type Severity Reaction Status Date / Time diatrizoate meglumine Allergy Severe SHOCK Verified 04/17/18 11:34 gadobenic acid Allergy Severe SHOCK Verified 04/17/18 11:34 gadodiamide Allergy Severe SHOCK Verified 04/17/18 11:34 gadoteridol Allergy Severe SHOCK Verified 04/17/18 11:34 iodine Allergy Severe Difficulty Verified 04/17/18 11:34 Breathing iodixanol Allergy Severe SHOCK Verified 04/17/18 11:34 iohexol Allergy Severe SHOCK Verified 04/17/18 11:34 potassium iodide Allergy Severe Difficulty Verified 04/17/18 11:34 Breathing povidone-iodine Allergy Severe Difficulty Verified 04/17/18 11:34 Breathing sodium iodide Allergy Severe Difficulty Verified 04/17/18 11:34 Breathing sodium iodide Allergy Severe Difficulty Verified 04/17/18 11:34 Breathing Sulfa (Sulfonamide Allergy Gastrointestinal Verified 06/05/18 17:26 Antibiotics) Upset MRI PRECAUTION Allergy Severe ANEURSYM Uncoded 04/13/18 12:59 CLIPPING Review of Systems ROS: all other systems reviewed are negative [facility] Family History Family History Other Family history of acute myocardial infarction Social History Social History Substance History: Active Abuse Second Hand Smoke Exposure: Yes Smoking Status: Current every day smoker Tobacco Type: Cigarettes How Often Do You Have a Drink Containing Alcohol: Never Recent Travel in [facility] within the Last 8 Weeks: No Recent Out of Country Travel within the Last 8 Weeks: No Immunization History Tetanus Immunization: Unable to Assess Exam Narrative Exam Narrative: GENERAL: 63yo M not in distress. SKIN: Focused skin assessment warm/dry. HEAD: Atraumatic. Normocephalic. EYES: Pupils equal and round at 4mm bilaterally. ENT: No nasal bleeding or discharge. Mucous membranes pink and moist. NECK: Trachea midline. No JVD. CARDIOVASCULAR: Regular rate and rhythm. No murmur appreciated. RESPIRATORY: No accessory muscle use. Clear to auscultation. Breath sounds equal bilaterally. O2 sat 91% on RA. GASTROINTESTINAL: Abdomen soft, mild ttp epigastric. No rebound tenderness or guarding. MUSCULOSKELETAL: Left AKA. NEUROLOGICAL: Lethargic. No obvious cranial nerve deficits. Motor grossly within normal limits. Course Initial Documented Vital Signs Temperature 97.9 F 08/15/18 09:17 Pulse Rate 85 08/15/18 09:17 Respiratory Rate 18 08/15/18 09:17 Blood Pressure 135/68 11/30/18 09:17 Pulse Oximetry 95 08/15/18 09:17 Last Documented Vital Signs Temperature 98 F 08/16/18 16:00 Pulse Rate 72 08/16/18 16:00 Respiratory Rate 20 08/16/18 16:00 Blood Pressure 140/68 08/16/18 16:00 Pulse Oximetry 93 L 08/16/18 14:45 Medical Decision Making MDM Narrative Medical decision making narrative: 63yo M here with c/o abdominal pain and not feeling well. However, pt is lethargic on exam and needed deep sternum rub to wake up. Labs reviewed, no leukocytosis. H/H low at 11.2/35.6 but this is baseline. BUN/creatinine elevated at 20/1.59. Creatinine is about double baseline. Ammonia is normal. Troponin negative. TSH normal. Pt given narcan since he is so lethargic but did not change. O2 sat about 91% on RA so given 2L NC. ABG obtained to evaluate for hypercapnia but CO2 is only slightly elevated at 47. pH is 7.35. CT brain showed no acute intracranial findings. CXR negative. CT a/p showed radiodense debris or stone in gallbladder. Stable noncontrast CT of abdomen and pelvis. Lipase and LFTs unremarkable. UA showed WBC 12. Large leukocyte. Occasional bacteria. Will treat. Alcohol is 3, will send tox screen. Pt was admitted in 04/2018 for encephalopathy possibly secondary to medication misuse or hypercapnia. This seems similar, discussed with Dr. Souza and accepted to his service. Medical Screen Exam Complete: Yes Emergency Medical Condition: Yes Differential Diagnosis Differential Diagnosis: Drug overdose vs. delirium vs. dementia vs. pneumonia vs. pancreatitis vs. colitis Lab Data Result diagrams: 08/16/18 07:40 08/16/18 07:40 Lab Results 08/15/18 08/15/18 08/15/18 Range/Units 09:22 09:48 09:48 WBC 9.4 (4.0-11.0) th/mm3 RBC 4.33 L (4.50-5.90) mil/mm3 Hgb 11.2 L (13.0-17.0) gm/dL Hct 35.6 L (39.0-51.0) % MCV 82.2 (80.0-100.0) fL MCH 25.8 L (27.0-34.0) pg MCHC 31.4 L (32.0-36.0) % RDW 20.2 H (11.6-17.2) % Plt Count 264 (150-450) th/mm3 MPV 8.6 (7.0-11.0) fL Neut % (Auto) 78.3 H (16.0-70.0) % Lymph % (Auto) 13.9 (9.0-44.0) % [place] % (Auto) 6.5 (0.0-8.0) % Eos % (Auto) 0.6 (0.0-4.0) % Baso % (Auto) 0.7 (0.0-2.0) % Neut # (Auto) 7.3 (1.8-7.7) th/mm3 Lymph # (Auto) 1.3 (1.0-4.8) th/mm3 [place] # (Auto) 0.6 (0.0-0.9) th/mm3 Eos # (Auto) 0.1 (0.0-0.4) th/mm3 Baso # (Auto) 0.1 (0.0-0.2) th/mm3 WBC Differential . Differential Comment Auto diff final PT (9.8-11.6) sec INR Ratio APTT (23.4-31.7) sec Puncture Site Patient Temperature O2 Saturation (90-100) % ABG pH (7.380-7.420) ABG pCO2 (38-42) mmHg ABG pO2 (61-120) mmHg ABG HCO3 (22-26) mmol/L ABG O2 Content (12.0-20.0) Vol % ABG Base Excess (-2-2) mmol/L ABG Methemoglobin (0-2) % Allan Test Hemoglobin (12.0-16.0) G/DL Carboxyhemoglobin (0-4) % O2 Delivery Device Liter Flow L/M Critical Value Sodium 136 (136-145) meq/L Potassium 3.8 (3.5-5.1) meq/L Chloride 105 (98-107) meq/L Carbon Dioxide 24.9 (21.0-32.0) meq/L Anion Gap 6 (5-15) meq/L BUN 20 H (7-18) mg/dL Creatinine 1.59 H (0.60-1.30) mg/dL Estimated GFR 44 L (>89) mL/min POC Glucose 159 H (68-110) mg/dl Random Glucose 161 H (74-106) mg/dL Calcium 8.8 (8.5-10.1) mg/dL Magnesium 2.0 (1.5-2.5) mg/dL Total Bilirubin 0.5 (0.2-1.0) mg/dL AST 12 L (15-37) U/L ALT 10 L (12-78) U/L Alkaline Phosphatase 55 (45-117) U/L Ammonia (11-32) mcmol/L Total Creatine Kinase (39-308) U/L Troponin I Less than 0.02 L (0.02-0.05) ng/mL Total Protein 8.2 (6.4-8.2) g/dL Albumin 3.2 L (3.4-5.0) g/dL Lipase 90 (73-393) U/L TSH 1.960 (0.358-3.740) uIU/mL Urine Color (Yellw/Straw) Urine Clarity (Clear) Urine pH (5.0-8.5) Ur Specific Golden (1.002-1.035) Urine Protein (Neg-Trace) mg/dL Urine Glucose (UA) (Negative) mg/dL Urine Ketones (Negative) mg/dL Urine Occult Blood (Negative) Urine Nitrate (Negative) Urine Bilirubin (Negative) Urine Urobilinogen (Less than 2) mg/dL Ur Leukocyte Esterase (Negative) Urine RBC (0-3) /hpf Urine WBC (0-5) /hpf Ur Squamous Epith Cells (0-5) /hpf Urine Bacteria (None) /hpf Urine Mucus (Occasional) /lpf Micro UA Comment Ur Microscopic Review Urine Culture Comments Urine Opiates Screen (Neg) Ur Barbiturates Screen (Neg) Ur Amphetamines Screen (Neg) U Benzodiazepines Scrn (Neg) Urine Cocaine Screen (Neg) U Cannabinoids Screen (Neg) Serum Alcohol 3 (0-5) mg/dL 08/15/18 08/15/18 08/15/18 Range/Units 09:48 11:02 11:09 WBC (4.0-11.0) th/mm3 RBC (4.50-5.90) mil/mm3 Hgb (13.0-17.0) gm/dL Hct (39.0-51.0) % MCV (80.0-100.0) fL MCH (27.0-34.0) pg MCHC (32.0-36.0) % RDW (11.6-17.2) % Plt Count (150-450) th/mm3 MPV (7.0-11.0) fL Neut % (Auto) (16.0-70.0) % Lymph % (Auto) (9.0-44.0) % [place] % (Auto) (0.0-8.0) % Eos % (Auto) (0.0-4.0) % Baso % (Auto) (0.0-2.0) % Neut # (Auto) (1.8-7.7) th/mm3 Lymph # (Auto) (1.0-4.8) th/mm3 [place] # (Auto) (0.0-0.9) th/mm3 Eos # (Auto) (0.0-0.4) th/mm3 Baso # (Auto) (0.0-0.2) th/mm3 WBC Differential Differential Comment PT (9.8-11.6) sec INR Ratio APTT (23.4-31.7) sec Puncture Site Patient Temperature O2 Saturation (90-100) % ABG pH (7.380-7.420) ABG pCO2 (38-42) mmHg ABG pO2 (61-120) mmHg ABG HCO3 (22-26) mmol/L ABG O2 Content (12.0-20.0) Vol % ABG Base Excess (-2-2) mmol/L ABG Methemoglobin (0-2) % Allan Test Hemoglobin (12.0-16.0) G/DL Carboxyhemoglobin (0-4) % O2 Delivery Device Liter Flow L/M Critical Value Sodium (136-145) meq/L Potassium (3.5-5.1) meq/L Chloride (98-107) meq/L Carbon Dioxide (21.0-32.0) meq/L Anion Gap (5-15) meq/L BUN (7-18) mg/dL Creatinine (0.60-1.30) mg/dL Estimated GFR (>89) mL/min POC Glucose (68-110) mg/dl Random Glucose (74-106) mg/dL Calcium (8.5-10.1) mg/dL Magnesium (1.5-2.5) mg/dL Total Bilirubin (0.2-1.0) mg/dL AST (15-37) U/L ALT (12-78) U/L Alkaline Phosphatase (45-117) U/L Ammonia 20 (11-32) mcmol/L Total Creatine Kinase 48 (39-308) U/L Troponin I (0.02-0.05) ng/mL Total Protein (6.4-8.2) g/dL Albumin (3.4-5.0) g/dL Lipase (73-393) U/L TSH (0.358-3.740) uIU/mL Urine Color Becky (Yellw/Straw) Urine Clarity Hazy H (Clear) Urine pH 5.0 (5.0-8.5) Ur Specific Golden 1.027 (1.002-1.035) Urine Protein 30 H (Neg-Trace) mg/dL Urine Glucose (UA) Negative (Negative) mg/dL Urine Ketones Negative (Negative) mg/dL Urine Occult Blood Negative (Negative) Urine Nitrate Positive H (Negative) Urine Bilirubin Negative (Negative) Urine Urobilinogen Less than 2 (Less than 2) mg/dL Ur Leukocyte Esterase Large H (Negative) Urine RBC 2 (0-3) /hpf Urine WBC 12 H (0-5) /hpf Ur Squamous Epith Cells <1 (0-5) /hpf Urine Bacteria Occasional H (None) /hpf Urine Mucus Few H (Occasional) /lpf Micro UA Comment Cath-culture ind Ur Microscopic Review Not Reportable Urine Culture Comments Cath-cult indicated Urine Opiates Screen (Neg) Ur Barbiturates Screen (Neg) Ur Amphetamines Screen (Neg) U Benzodiazepines Scrn (Neg) Urine Cocaine Screen (Neg) U Cannabinoids Screen (Neg) Serum Alcohol (0-5) mg/dL 08/15/18 08/15/18 08/15/18 Range/Units 11:09 11:13 12:30 WBC (4.0-11.0) th/mm3 RBC (4.50-5.90) mil/mm3 Hgb (13.0-17.0) gm/dL Hct (39.0-51.0) % MCV (80.0-100.0) fL MCH (27.0-34.0) pg MCHC (32.0-36.0) % RDW (11.6-17.2) % Plt Count (150-450) th/mm3 MPV (7.0-11.0) fL Neut % (Auto) (16.0-70.0) % Lymph % (Auto) (9.0-44.0) % [place] % (Auto) (0.0-8.0) % Eos % (Auto) (0.0-4.0) % Baso % (Auto) (0.0-2.0) % Neut # (Auto) (1.8-7.7) th/mm3 Lymph # (Auto) (1.0-4.8) th/mm3 [place] # (Auto) (0.0-0.9) th/mm3 Eos # (Auto) (0.0-0.4) th/mm3 Baso # (Auto) (0.0-0.2) th/mm3 WBC Differential Differential Comment PT 11.8 H (9.8-11.6) sec INR 1.2 Ratio APTT 31.9 H (23.4-31.7) sec Puncture Site Right radial Patient Temperature 98.6 O2 Saturation 92 (90-100) % ABG pH 7.35 L (7.380-7.420) ABG pCO2 47 H (38-42) mmHg ABG pO2 84 (61-120) mmHg ABG HCO3 26 (22-26) mmol/L ABG O2 Content 14.1 (12.0-20.0) Vol % ABG Base Excess 0.6 (-2-2) mmol/L ABG Methemoglobin 0.6 (0-2) % Allan Test Present Hemoglobin 10.8 L (12.0-16.0) G/DL Carboxyhemoglobin 3.2 (0-4) % O2 Delivery Device Nasal cannula Liter Flow 2.00 L/M Critical Value No Sodium (136-145) meq/L Potassium (3.5-5.1) meq/L Chloride (98-107) meq/L Carbon Dioxide (21.0-32.0) meq/L Anion Gap (5-15) meq/L BUN (7-18) mg/dL Creatinine (0.60-1.30) mg/dL Estimated GFR (>89) mL/min POC Glucose (68-110) mg/dl Random Glucose (74-106) mg/dL Calcium (8.5-10.1) mg/dL Magnesium (1.5-2.5) mg/dL Total Bilirubin (0.2-1.0) mg/dL AST (15-37) U/L ALT (12-78) U/L Alkaline Phosphatase (45-117) U/L Ammonia (11-32) mcmol/L Total Creatine Kinase (39-308) U/L Troponin I (0.02-0.05) ng/mL Total Protein (6.4-8.2) g/dL Albumin (3.4-5.0) g/dL Lipase (73-393) U/L TSH (0.358-3.740) uIU/mL Urine Color (Yellw/Straw) Urine Clarity (Clear) Urine pH (5.0-8.5) Ur Specific Golden (1.002-1.035) Urine Protein (Neg-Trace) mg/dL Urine Glucose (UA) (Negative) mg/dL Urine Ketones (Negative) mg/dL Urine Occult Blood (Negative) Urine Nitrate (Negative) Urine Bilirubin (Negative) Urine Urobilinogen (Less than 2) mg/dL Ur Leukocyte Esterase (Negative) Urine RBC (0-3) /hpf Urine WBC (0-5) /hpf Ur Squamous Epith Cells (0-5) /hpf Urine Bacteria (None) /hpf Urine Mucus (Occasional) /lpf Micro UA Comment Ur Microscopic Review Urine Culture Comments Urine Opiates Screen Neg (Neg) Ur Barbiturates Screen Neg (Neg) Ur Amphetamines Screen Neg (Neg) U Benzodiazepines Scrn Neg (Neg) Urine Cocaine Screen Neg (Neg) U Cannabinoids Screen Pos H (Neg) Serum Alcohol (0-5) mg/dL 08/15/18 08/15/18 08/16/18 Range/Units 18:10 21:50 07:40 WBC 7.5 (4.0-11.0) th/mm3 RBC 4.00 L (4.50-5.90) mil/mm3 Hgb 10.1 L (13.0-17.0) gm/dL Hct 32.6 L (39.0-51.0) % MCV 81.6 (80.0-100.0) fL MCH 25.2 L (27.0-34.0) pg MCHC 30.8 L (32.0-36.0) % RDW 20.3 H (11.6-17.2) % Plt Count 242 (150-450) th/mm3 MPV 8.3 (7.0-11.0) fL Neut % (Auto) 64.5 (16.0-70.0) % Lymph % (Auto) 23.7 (9.0-44.0) % [place] % (Auto) 7.9 (0.0-8.0) % Eos % (Auto) 2.4 (0.0-4.0) % Baso % (Auto) 1.5 (0.0-2.0) % Neut # (Auto) 4.8 (1.8-7.7) th/mm3 Lymph # (Auto) 1.8 (1.0-4.8) th/mm3 [place] # (Auto) 0.6 (0.0-0.9) th/mm3 Eos # (Auto) 0.2 (0.0-0.4) th/mm3 Baso # (Auto) 0.1 (0.0-0.2) th/mm3 WBC Differential . Differential Comment Auto diff final PT (9.8-11.6) sec INR Ratio APTT (23.4-31.7) sec Puncture Site Patient Temperature O2 Saturation (90-100) % ABG pH (7.380-7.420) ABG pCO2 (38-42) mmHg ABG pO2 (61-120) mmHg ABG HCO3 (22-26) mmol/L ABG O2 Content (12.0-20.0) Vol % ABG Base Excess (-2-2) mmol/L ABG Methemoglobin (0-2) % Allan Test Hemoglobin (12.0-16.0) G/DL Carboxyhemoglobin (0-4) % O2 Delivery Device Liter Flow L/M Critical Value Sodium (136-145) meq/L Potassium (3.5-5.1) meq/L Chloride (98-107) meq/L Carbon Dioxide (21.0-32.0) meq/L Anion Gap (5-15) meq/L BUN (7-18) mg/dL Creatinine (0.60-1.30) mg/dL Estimated GFR (>89) mL/min POC Glucose 116 H 112 H (68-110) mg/dl Random Glucose (74-106) mg/dL Calcium (8.5-10.1) mg/dL Magnesium (1.5-2.5) mg/dL Total Bilirubin (0.2-1.0) mg/dL AST (15-37) U/L ALT (12-78) U/L Alkaline Phosphatase (45-117) U/L Ammonia (11-32) mcmol/L Total Creatine Kinase (39-308) U/L Troponin I (0.02-0.05) ng/mL Total Protein (6.4-8.2) g/dL Albumin (3.4-5.0) g/dL Lipase (73-393) U/L TSH (0.358-3.740) uIU/mL Urine Color (Yellw/Straw) Urine Clarity (Clear) Urine pH (5.0-8.5) Ur Specific Golden (1.002-1.035) Urine Protein (Neg-Trace) mg/dL Urine Glucose (UA) (Negative) mg/dL Urine Ketones (Negative) mg/dL Urine Occult Blood (Negative) Urine Nitrate (Negative) Urine Bilirubin (Negative) Urine Urobilinogen (Less than 2) mg/dL Ur Leukocyte Esterase (Negative) Urine RBC (0-3) /hpf Urine WBC (0-5) /hpf Ur Squamous Epith Cells (0-5) /hpf Urine Bacteria (None) /hpf Urine Mucus (Occasional) /lpf Micro UA Comment Ur Microscopic Review Urine Culture Comments Urine Opiates Screen (Neg) Ur Barbiturates Screen (Neg) Ur Amphetamines Screen (Neg) U Benzodiazepines Scrn (Neg) Urine Cocaine Screen (Neg) U Cannabinoids Screen (Neg) Serum Alcohol (0-5) mg/dL 08/16/18 08/16/18 08/16/18 Range/Units 07:40 07:40 12:38 WBC (4.0-11.0) th/mm3 RBC (4.50-5.90) mil/mm3 Hgb (13.0-17.0) gm/dL Hct (39.0-51.0) % MCV (80.0-100.0) fL MCH (27.0-34.0) pg MCHC (32.0-36.0) % RDW (11.6-17.2) % Plt Count (150-450) th/mm3 MPV (7.0-11.0) fL Neut % (Auto) (16.0-70.0) % Lymph % (Auto) (9.0-44.0) % [place] % (Auto) (0.0-8.0) % Eos % (Auto) (0.0-4.0) % Baso % (Auto) (0.0-2.0) % Neut # (Auto) (1.8-7.7) th/mm3 Lymph # (Auto) (1.0-4.8) th/mm3 [place] # (Auto) (0.0-0.9) th/mm3 Eos # (Auto) (0.0-0.4) th/mm3 Baso # (Auto) (0.0-0.2) th/mm3 WBC Differential Differential Comment PT 12.7 H (9.8-11.6) sec INR 1.3 Ratio APTT (23.4-31.7) sec Puncture Site Patient Temperature O2 Saturation (90-100) % ABG pH (7.380-7.420) ABG pCO2 (38-42) mmHg ABG pO2 (61-120) mmHg ABG HCO3 (22-26) mmol/L ABG O2 Content (12.0-20.0) Vol % ABG Base Excess (-2-2) mmol/L ABG Methemoglobin (0-2) % Allan Test Hemoglobin (12.0-16.0) G/DL Carboxyhemoglobin (0-4) % O2 Delivery Device Liter Flow L/M Critical Value Sodium 140 (136-145) meq/L Potassium 3.8 (3.5-5.1) meq/L Chloride 106 (98-107) meq/L Carbon Dioxide 29.0 (21.0-32.0) meq/L Anion Gap 5 (5-15) meq/L BUN 15 (7-18) mg/dL Creatinine 0.74 (0.60-1.30) mg/dL Estimated GFR Greater than 89 (>89) mL/min POC Glucose 144 H (68-110) mg/dl Random Glucose 102 (74-106) mg/dL Calcium 8.4 L (8.5-10.1) mg/dL Magnesium (1.5-2.5) mg/dL Total Bilirubin (0.2-1.0) mg/dL AST (15-37) U/L ALT (12-78) U/L Alkaline Phosphatase (45-117) U/L Ammonia (11-32) mcmol/L Total Creatine Kinase (39-308) U/L Troponin I (0.02-0.05) ng/mL Total Protein (6.4-8.2) g/dL Albumin (3.4-5.0) g/dL Lipase (73-393) U/L TSH (0.358-3.740) uIU/mL Urine Color (Yellw/Straw) Urine Clarity (Clear) Urine pH (5.0-8.5) Ur Specific Golden (1.002-1.035) Urine Protein (Neg-Trace) mg/dL Urine Glucose (UA) (Negative) mg/dL Urine Ketones (Negative) mg/dL Urine Occult Blood (Negative) Urine Nitrate (Negative) Urine Bilirubin (Negative) Urine Urobilinogen (Less than 2) mg/dL Ur Leukocyte Esterase (Negative) Urine RBC (0-3) /hpf Urine WBC (0-5) /hpf Ur Squamous Epith Cells (0-5) /hpf Urine Bacteria (None) /hpf Urine Mucus (Occasional) /lpf Micro UA Comment Ur Microscopic Review Urine Culture Comments Urine Opiates Screen (Neg) Ur Barbiturates Screen (Neg) Ur Amphetamines Screen (Neg) U Benzodiazepines Scrn (Neg) Urine Cocaine Screen (Neg) U Cannabinoids Screen (Neg) Serum Alcohol (0-5) mg/dL Imaging Data Radiologist's impression: Abdomen/Pelvis CT 08/15/18 09:32 CONCLUSION: 1. Radiodense debris or stones in the gallbladder. 2. Stable noncontrast CT appearance of the abdomen and pelvis. Chest X-Ray 08/15/18 09:32 CONCLUSION: No focal lung disease Head CT 08/15/18 09:37 CONCLUSION: No acute intracranial findings . ECG Data EKG Prior to Arrival: No Attestation: I personally reviewed and interpreted this ECG as follows: Interpretation: NSR 80bpm. Normal axis. IN interval 160ms. No significant ST elevation or depression. TWI V5, V6. Discharge Plan Discharge Disposition Patient Disposition: 30 Still Patient Discharge Condition Condition: Stable Discharge Order Discharge Orders: Discharge Order (Routine); Ordered 08/16/18 Ordered By: Farideh Yuan Discharge Details Anticipated Discharge Date: 08/16/18 Diagnosis: Altered mental status Physicians Team ED Provider: Keren Calderon Primary Care Provider: UNKNOWN, Attending Provider: Farideh Yuan Other Providers: [employer] Status ED Status: Left Department Discharge Information Discharge Date/Time: 08/15/18 14:15
--- NOTE | 2018-08-15 10:04 | XR ---
EXAM DATE: 08/15/2018 10:00 AM EST AGE/SEX: 63 years / Male INDICATIONS: Unresponsive CLINICAL DATA: This is the patient's initial encounter. Patient reports that signs and symptoms have been present for 1 day and indicates a pain score of Nonresponsive. MEDICAL/SURGICAL HISTORY: Non-responsive. Non-responsive. COMPARISON: [facility] [place] 1[place] SING[place], [place]. . FINDINGS: Left chest port in good stable position and is accessed. Mild vascular crowding and poor inspiratory effort. No definite focal infiltrate or significant effusion. Cardiac contours are satisfactory for p rojection. CONCLUSION: No focal lung disease Electronically signed by: Jorge Alberto Guzman MD 08/15/2018 10:03 AM EST
--- NOTE | 2018-08-15 10:15 | CT ---
EXAM DATE: 08/15/2018 10:08 AM EST AGE/SEX: 63 years / Male INDICATIONS: Altered mental status. CLINICAL DATA: This is the patient's initial encounter. Patient reports that signs and symptoms have been present for 1 day and indicates a pain score of Nonresponsive. MEDICAL/SURGICAL HISTORY: Diabetes. Hypertension. Cardiovascular disease. Stroke . Craniotomy. RADIATION DOSE: 64.63 CTDI (mGy) COMPARISON: [facility] – [place], [place] HEAD W/O CONTRAST, 06/05/2018. . TECHNIQUE: CT of the head without contrast. Using automated exposure control and adjustment of the mA and/or kV according to patient size, radiation dose was kept as low as reasonably achievable to ob tain optimal diagnostic quality images. DICOM format image data is available electronically for revi ew and comparison. 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 Small old lacunar infarc ts in the right basal ganglia. No evidence of intracranial mass or hemorrhage. Nothing to suggest acu te infarction. Patchy chronic appearing areas of mild white matter hypodensity. Previous right tempor al craniotomy. CONCLUSION: No acute intracranial findings . Electronically signed by: Jorge Alberto Guzman MD 08/15/2018 10:13 AM EST
--- NOTE | 2018-08-15 10:26 | CT ---
EXAM DATE: 08/15/2018 10:18 AM EST AGE/SEX: 63 years / Male INDICATIONS: Epigastric abdominal pain, nausea and vomiting. CLINICAL DATA: This is the patient's initial encounter. Patient reports that signs and symptoms have been present for 1 day and indicates a pain score of Nonresponsive. MEDICAL/SURGICAL HISTORY: Diabetes. Hypertension. Cardiovascular disease. Stroke. DVT. None . RADIATION DOSE: 31.16 CTDI (mGy) COMPARISON: [facility] [place], CT ABDOMEN & PELVIS W/O CONTRAST, 03/16/2018. . TECHNIQUE: Multiple contiguous axial images were obtained through the abdomen. Images were obtained using multiple row detector helical technique. Using automated exposure control and adjustment of the mA and/or kV according to patient size, radiation dose was kept as low as reasonably achievable to o btain optimal diagnostic quality images. DICOM format image data is available electronically for rev iew and comparison. FINDINGS: Lower Lungs: The visualized lower lungs are clear. Liver: Stable small hypodensity in the dome of the liver. No evidence of biliary ductal dilatation. R adiodense debris in the dependent gallbladder. Spleen: Homogeneous density without enlargement. Pancreas: Unremarkable without mass or calcification. Kidneys: 1.5 cm hemorrhagic cyst arising exophytically from the lateral midpole region of the left k idney. Right kidney is unremarkable. Adrenal Glands: Unremarkable. Aorta: The aorta and proximal iliac vessels are grossly unremarkable without aneurysmal dilation. Bowel/Mesentery: The bowel loops are grossly unremarkable. The cecum and sigmoid colon have a normal configuration. Abdominal Wall: Intact. Retroperitoneum: No evidence of adenopathy in the retrocrural, para-aortic, or deep pelvic regions. Bladder: Contours are smooth. Reproductive Organs: Prostatic calcifications. No pelvic mass or free fluid. Inguinal: Fat-containing right inguinal hernia. Bony Structures: Unremarkable. CONCLUSION: 1. Radiodense debris or stones in the gallbladder. 2. Stable noncontrast CT appearance of the abdomen and pelvis. Electronically signed by: Jorge Alberto Guzman MD 08/15/2018 10:25 AM EST
[2018-08-15 10:42] LABS: Baso # (Auto) 0.1 th/mm3 (0.0-0.2); Baso % (Auto) 0.7 % (0.0-2.0); Eos # (Auto) 0.1 th/mm3 (0.0-0.4); Eos % (Auto) 0.6 % (0.0-4.0); Hematocrit 35.6 % (39.0-51.0); Hemoglobin 11.2 gm/dL (13.0-17.0); Lymph # (Auto) 1.3 th/mm3 (1.0-4.8); Lymph % (Auto) 13.9 % (9.0-44.0); Mean Corpuscular HGB Conc 31.4 % (32.0-36.0); Mean Corpuscular Hemoglobin 25.8 pg (27.0-34.0); Mean Corpuscular Volume 82.2 fL (80.0-100.0); Mean Platelet Volume 8.6 fL (7.0-11.0); Mono # (Auto) 0.6 th/mm3 (0.0-0.9); Mono % (Auto) 6.5 % (0.0-8.0); Neut # (Auto) 7.3 th/mm3 (1.8-7.7); Neut % (Auto) 78.3 % (16.0-70.0); Platelet Count 264 th/mm3 (150-450); Red Blood Count 4.33 mil/mm3 (4.50-5.90); Red Cell Distribution Width 20.2 % (11.6-17.2); White Blood Count 9.4 th/mm3 (4.0-11.0)
[2018-08-15 11:02] LABS: Alanine Aminotransferase 10 U/L (12-78); Albumin 3.2 g/dL (3.4-5.0); Alcohol 3 mg/dL (0-5); Anion Gap 6 meq/L (5-15); Aspartate Aminotransferase 12 U/L (15-37); Blood Urea Nitrogen 20 mg/dL (7-18); Calcium 8.8 mg/dL (8.5-10.1); Carbon Dioxide 24.9 meq/L (21.0-32.0); Chloride 105 meq/L (98-107); Glomerular Filtration Rate 44 mL/min (>89); Glucose,Random 161 mg/dL (74-106); Lipase 90 U/L (73-393); Potassium 3.8 meq/L (3.5-5.1); Sodium 136 meq/L (136-145)
[2018-08-15 11:12] LABS: Alkaline Phosphatase 55 U/L (45-117); Total Protein 8.2 g/dL (6.4-8.2)
[2018-08-15 11:23] LABS: ABG Base Excess 0.6 mmol/L (-2-2); ABG PCO2 47 mmHg (38-42); ABG PO2 84 mmHg (61-120)
[2018-08-15 11:52] LABS: Bacteria,Urine Occasional /hpf; Bilirubin,Urine Negative (Negative); Clarity,Urine Hazy (Clear); Color,Urine Amber (Yellw/Straw); Glucose,Urine (UA) Negative (Negative); Leukocyte Esterase,Urine Large (Negative); Mucus,Urine Few /lpf (Occasional); Nitrite,Urine Positive (Negative); Specific Gravity,Urine 1.027 (1.002-1.035); Squamous Epithelial Cell,Urine <1 /hpf (0-5)
[2018-08-15] MEDS ORDERED: Sod Chloride 0.9% Inj 1,000 ML IV.SIG SCH (12:15)
[2018-08-15] MEDS ORDERED: Dextrose 50% in Water 50 ML Vial IV.PUSH PRN (12:44)
[2018-08-15] MEDS ORDERED: Bisacodyl 10 MG Supp RECTAL PRN (12:46)
[2018-08-15] MEDS ORDERED: Acetaminophen 325 MG Tablet PO PRN (12:46)
[2018-08-15 12:51] LABS: Amphetamine Screen,Urine Neg (Neg); Barbiturate Screen,Urine Neg (Neg); Cannabinoid Screen,Urine Pos (Neg); Cocaine Screen,Urine Neg (Neg)
[2018-08-15 13:09] LABS: Opiate Screen,Urine Neg (Neg)
[2018-08-15 13:13] LABS: Activated Partial Thrombo Time 31.9 sec (23.4-31.7); INR 1.2 Ratio; Prothrombin Time 11.8 sec (9.8-11.6)
[2018-08-15] MEDS: Sod Chloride 0.9% Inj 1,000 ML IV.CONT SCH (14:18)
--- NOTE | 2018-08-15 14:24 | P.HP ---
History of Present Illness Primary Care Physician: UNKNOWN Chief Complaint: Abdominal pain History of Present Illness: This is a 63-year-old male with a history of COPD, CVA/TIA, coronary artery disease, diabetes mellitus with neuropathy, hyperlipidemia, A. fib on Coumadin and DVT. Patient presented to the emergency room because of not feeling well and epigastric pain starting this morning prior ED notes. While in the emergency department, he was noted to be altered. He was drowsy, arousable with sternal rub. He was given Narcan with no improvement in his mental status. Head CT without acute findings. EKG tracing independently reviewed by me with sinus rhythm with T inversion in V5 and V6. Chest x-ray interval reviewed by me with no acute cardiopulmonary disease. Ammonia level within normal limits. Urine drug screen positive for marijuana. ABG unremarkable pH 7.35 PCO2 47 PO2 84 on 2 L. BUN 20 creatinine 1.59 which is elevated. Abnormal urinalysis with positive nitrite, large leukocyte esterase and WBC of 12. ED physician advised hospitalization for further evaluation and treatment. He also received 1 L fluid hydration and Rocephin 1 g IV x1. When I evaluated patient, he did not wake up when called but when I pinched his left arm he woke up. Oriented to person and place. Denies any complaints including abdominal pain. Abdominal CT w/o acute findings and normal Lipase. Does not remember why he came to the hospital or how he got to the hospital. Discussed with , patient complaining of epigastric pain and was confused. 911 was called and was brought in by EMS Review of Systems All other systems reviewed negative except as stated in HPI PMFSH - History History Provided By: Patient - Medical History Medical History: Medical History (Last Updated 08/15/18 @ 15:07 by Tex Souza MD) DVT (deep venous thrombosis) Depression Diabetes Hypertension Myocardial infarct Stroke - Surgical History Surgical History: Surgical History (Last Updated 08/15/18 @ 15:08 by Tex Souza MD) S/P AKA (above knee amputation) unilateral - Family History Family History: Family History (Last Updated 08/15/18 @ 15:08 by Tex Souza MD) Other Family history of acute myocardial infarction - Social History I have reviewed the patient's Social History: Yes - Tobacco History Second Hand Smoke Exposure: Yes Smoking Status: Refused to answer Tobacco Type: Cigarettes - Alcohol History How Often Do You Have a Drink Containing Alcohol: Unable to Obtain - Substance Use History Substance History: Unable to Obtain - Travel History Recent Travel in the [place] Within the Last 8 Weeks: No Recent Travel Out of the Country Within the Last 8 Weeks: No - Immunization History Tetanus Immunization: Unable to Assess Medications and Allergies Active Medications: Active Medications Acetaminophen (Tylenol) 650 mg PO Q4H PRN PRN Reason: Temp > 100.4 Bisacodyl (Dulcolax Supp) 10 mg RECTAL DAILY PRN PRN Reason: SEVERE CONSITIPATION Dextrose (D50w Vial) 50 ml IV.PUSH UNSCH PRN PRN Reason: PER HYPOGLYCEMIA PROTOCOL Glucagon (Glucagon Inj) 1 mg OTHER PRN PRN PRN Reason: for Hypoglycemia Protocol Ceftriaxone Sodium 1,000 mg/ (Sodium Chloride) 100 mls @ 200 mls/hr IV.SIG Q24H JAMIE Sodium Chloride (Ns Inj) 1,000 mls @ 70 mls/hr IV.CONT .[id number] JAMIE Insulin Aspart (Novolog Insulin Correctional Sugar Inj) 0 unit SQ ACHS JAMIE; Protocol Lactulose (Lactulose Liq) 30 ml PO DAILY PRN PRN Reason: SEVERE CONSITIPATION Ondansetron HCl (Zofran Inj) 4 mg IV.PUSH Q6H PRN PRN Reason: NAUSEA OR VOMITING Senna/Docusate Sodium (Albertina-Colace) 1 tab PO BID JAMIE Sennosides (Senokot) 17.2 mg PO Q12H PRN PRN Reason: Moderate Constipation Sodium Chloride (Ns Flush) 2 ml IV.FLUSH BID JAMIE Sodium Chloride (Ns Flush) 2 ml IV.FLUSH PRN PRN PRN Reason: FLUSH AFTER USING IV ACCESS Allergies Allergy/AdvReac Type Severity Reaction Status Date / Time diatrizoate meglumine Allergy Severe SHOCK Verified 04/17/18 11:34 gadobenic acid Allergy Severe SHOCK Verified 04/17/18 11:34 gadodiamide Allergy Severe SHOCK Verified 04/17/18 11:34 gadoteridol Allergy Severe SHOCK Verified 04/17/18 11:34 iodine Allergy Severe Difficulty Verified 04/17/18 11:34 Breathing iodixanol Allergy Severe SHOCK Verified 04/17/18 11:34 iohexol Allergy Severe SHOCK Verified 04/17/18 11:34 potassium iodide Allergy Severe Difficulty Verified 04/17/18 11:34 Breathing povidone-iodine Allergy Severe Difficulty Verified 04/17/18 11:34 Breathing sodium iodide Allergy Severe Difficulty Verified 04/17/18 11:34 Breathing sodium iodide Allergy Severe Difficulty Verified 04/17/18 11:34 Breathing Sulfa (Sulfonamide Allergy Gastrointestinal Verified 06/05/18 17:26 Antibiotics) Upset MRI PRECAUTION Allergy Severe ANEURSYM Uncoded 04/13/18 12:59 CLIPPING Home Medications Medication Instructions Recorded Confirmed Type albuterol sulfate 0.63 mg INHALATION Q4H 04/13/18 08/15/18 History aspirin [Aspir-81] 81 mg PO DAILY 04/13/18 08/15/18 History diltiazem HCl 240 mg PO DAILY 04/13/18 08/15/18 History insulin glargine 30 unit SUB-Q DAILY 04/13/18 08/15/18 History lisinopril 10 mg PO DAILY 04/13/18 08/15/18 History pantoprazole [Protonix] 20 m PO DAILY 04/13/18 08/15/18 History spironolactone 25 mg PO DAILY 04/13/18 08/15/18 History warfarin [Coumadin] 5 mg PO DAILY 04/13/18 08/15/18 History Exam Vital signs: Vital Signs 08/15/18 09:17 08/15/18 09:23 08/15/18 10:22 Temperature 97.9 F 97.9 F Pulse Rate 85 82 Respiratory Rate 18 16 16 Blood Pressure 135/68 135/68 Pulse Oximetry 95 96 08/15/18 10:28 08/15/18 12:00 08/15/18 14:15 Temperature Pulse Rate 60 59 L Respiratory Rate 18 14 18 Blood Pressure 128/58 L 105/53 L Pulse Oximetry 98 100 Intake & Output 08/14/18 08/15/18 08/15/18 18:59 06:59 18:59 Intake Total 1100 / 1100 Balance 1100 / 1100 Weight 117.934 kg Intake: IV 1100 / 1100 NS Inj 1,000 ML @ 1000 mls/hr 1000 / 1000 IV.SIG BOLUS JAMIE Rx#:[id number] Rocephin Inj 1,000 MG In NS Inj 100 / 100 100 ML @ 200 mls/hr IV.SIG ONCE ONE Rx#:[id number] Narrative: GENERAL: Well-developed, well-nourished in no distress SKIN: Warm and dry. Xerosis with skin cracks venous stasis right lower extremity HEAD: Atraumatic. Normocephalic. EYES: Pupils equal and round. No scleral icterus. No injection or drainage. ENT: No nasal bleeding or discharge. Mucous membranes pink and moist. NECK: Trachea midline. No JVD. CARDIOVASCULAR: Regular rate and rhythm. RESPIRATORY: No accessory muscle use. Clear to auscultation. Breath sounds equal bilaterally. GASTROINTESTINAL: Abdomen soft, non-tender, nondistended. Obese hepatic MUSCULOSKELETAL: Extremities without clubbing, cyanosis, or edema. No obvious deformities. Left AKA NEUROLOGICAL: Awake and alert. No obvious cranial nerve deficits. Motor grossly within normal limits. Five out of 5 muscle strength in the arms and legs. Normal speech. Results - Labs CBC & Chem 7: 08/15/18 09:48 08/15/18 09:48 Labs: Laboratory Results - last 24 hr 08/15/18 08/15/18 08/15/18 09:22 09:48 09:48 WBC 9.4 RBC 4.33 L Hgb 11.2 L Hct 35.6 L MCV 82.2 MCH 25.8 L MCHC 31.4 L RDW 20.2 H Plt Count 264 MPV 8.6 Neut % (Auto) 78.3 H Lymph % (Auto) 13.9 [place] % (Auto) 6.5 Eos % (Auto) 0.6 Baso % (Auto) 0.7 Neut # (Auto) 7.3 Lymph # (Auto) 1.3 [place] # (Auto) 0.6 Eos # (Auto) 0.1 Baso # (Auto) 0.1 WBC Differential . Differential Comment Auto diff final PT INR APTT Puncture Site Patient Temperature O2 Saturation ABG pH ABG pCO2 ABG pO2 ABG HCO3 ABG O2 Content ABG Base Excess ABG Methemoglobin Allan Test Hemoglobin Carboxyhemoglobin O2 Delivery Device Liter Flow Critical Value Sodium 136 Potassium 3.8 Chloride 105 Carbon Dioxide 24.9 Anion Gap 6 BUN 20 H Creatinine 1.59 H Estimated GFR 44 L POC Glucose 159 H Random Glucose 161 H Calcium 8.8 Magnesium 2.0 Total Bilirubin 0.5 AST 12 L ALT 10 L Alkaline Phosphatase 55 Ammonia Troponin I Less than 0.02 L Total Protein 8.2 Albumin 3.2 L Lipase 90 TSH 1.960 Urine Color Urine Clarity Urine pH Ur Specific [place] Urine Protein Urine Glucose (UA) Urine Ketones Urine Occult Blood Urine Nitrate Urine Bilirubin Urine Urobilinogen Ur Leukocyte Esterase Urine RBC Urine WBC Ur Squamous Epith Cells Urine Bacteria Urine Mucus Micro UA Comment Ur Microscopic Review Urine Culture Comments Urine Opiates Screen Ur Barbiturates Screen Ur Amphetamines Screen U Benzodiazepines Scrn Urine Cocaine Screen U Cannabinoids Screen Serum Alcohol 3 08/15/18 08/15/18 08/15/18 11:02 11:09 11:09 WBC RBC Hgb Hct MCV MCH MCHC RDW Plt Count MPV Neut % (Auto) Lymph % (Auto) [place] % (Auto) Eos % (Auto) Baso % (Auto) Neut # (Auto) Lymph # (Auto) [place] # (Auto) Eos # (Auto) Baso # (Auto) WBC Differential Differential Comment PT INR APTT Puncture Site Patient Temperature O2 Saturation ABG pH ABG pCO2 ABG pO2 ABG HCO3 ABG O2 Content ABG Base Excess ABG Methemoglobin Allan Test Hemoglobin Carboxyhemoglobin O2 Delivery Device Liter Flow Critical Value Sodium Potassium Chloride Carbon Dioxide Anion Gap BUN Creatinine Estimated GFR POC Glucose Random Glucose Calcium Magnesium Total Bilirubin AST ALT Alkaline Phosphatase Ammonia 20 Troponin I Total Protein Albumin Lipase TSH Urine Color Becky Urine Clarity Hazy H Urine pH 5.0 Ur Specific [place] 1.027 Urine Protein 30 H Urine Glucose (UA) Negative Urine Ketones Negative Urine Occult Blood Negative Urine Nitrate Positive H Urine Bilirubin Negative Urine Urobilinogen Less than 2 Ur Leukocyte Esterase Large H Urine RBC 2 Urine WBC 12 H Ur Squamous Epith Cells <1 Urine Bacteria Occasional H Urine Mucus Few H Micro UA Comment Cath-culture ind Ur Microscopic Review Not Reportable Urine Culture Comments Cath-cult indicated Urine Opiates Screen Neg Ur Barbiturates Screen Neg Ur Amphetamines Screen Neg U Benzodiazepines Scrn Neg Urine Cocaine Screen Neg U Cannabinoids Screen Pos H Serum Alcohol 08/15/18 08/15/18 11:13 12:30 WBC RBC Hgb Hct MCV MCH MCHC RDW Plt Count MPV Neut % (Auto) Lymph % (Auto) [place] % (Auto) Eos % (Auto) Baso % (Auto) Neut # (Auto) Lymph # (Auto) [place] # (Auto) Eos # (Auto) Baso # (Auto) WBC Differential Differential Comment PT 11.8 H INR 1.2 APTT 31.9 H Puncture Site Right radial Patient Temperature 98.6 O2 Saturation 92 ABG pH 7.35 L ABG pCO2 47 H ABG pO2 84 ABG HCO3 26 ABG O2 Content 14.1 ABG Base Excess 0.6 ABG Methemoglobin 0.6 Allan Test Present Hemoglobin 10.8 L Carboxyhemoglobin 3.2 O2 Delivery Device Nasal cannula Liter Flow 2.00 Critical Value No Sodium Potassium Chloride Carbon Dioxide Anion Gap BUN Creatinine Estimated GFR POC Glucose Random Glucose Calcium Magnesium Total Bilirubin AST ALT Alkaline Phosphatase Ammonia Troponin I Total Protein Albumin Lipase TSH Urine Color Urine Clarity Urine pH Ur Specific [place] Urine Protein Urine Glucose (UA) Urine Ketones Urine Occult Blood Urine Nitrate Urine Bilirubin Urine Urobilinogen Ur Leukocyte Esterase Urine RBC Urine WBC Ur Squamous Epith Cells Urine Bacteria Urine Mucus Micro UA Comment Ur Microscopic Review Urine Culture Comments Urine Opiates Screen Ur Barbiturates Screen Ur Amphetamines Screen U Benzodiazepines Scrn Urine Cocaine Screen U Cannabinoids Screen Serum Alcohol - Imaging Impressions Abdomen/Pelvis CT 08/15/18 09:32 CONCLUSION: 1. Radiodense debris or stones in the gallbladder. 2. Stable noncontrast CT appearance of the abdomen and pelvis. Chest X-Ray 08/15/18 09:32 CONCLUSION: No focal lung disease Head CT 08/15/18 09:37 CONCLUSION: No acute intracranial findings . Caprini VTE Risk Assessment Caprini VTE Risk Assessment: Moderate/High Risk (score >= 2) Caprini Risk Assessment Model: Point Value = 1 Point Value = 2 Point Value = 3 Point Value = 5 Age 41-60 Minor surgery BMI > 25 kg/m2 Swollen legs Varicose veins or History of unexplained or recurrent spontaneous Oral contraceptives or hormone replacement Sepsis (< 1 month) Serious lung disease, including pneumonia (< 1 month) Abnormal pulmonary function Acute myocardial infarction Congestive heart failure (< 1 month) History of inflammatory bowel disease Medical patient at bed rest Age 61-74 Arthroscopic surgery Major open surgery (> 45 min) Laparoscopic surgery (> 45 min) Malignancy Confined to bed (> 72 hours) Immobilizing plaster cast Central venous access Age >= 75 History of VTE Family history of VTE Factor V Leiden Prothrombin [id number] Lupus anticoagulant Anticardiolipin antibodies Elevated serum homocysteine Heparin-induced thrombocytopenia Other congenital or acquired thrombophilia Stroke (< 1 month) Elective arthroplasty Hip, pelvis, or leg fracture Acute spinal cord injury (< 1 month) Prophylaxis Regimen: Total Risk Factor Score Risk Level Prophylaxis Regimen 0-1 Low Early ambulation 2 Moderate Order ONE of the following: *Sequential Compression Device (SCD) *Heparin 5000 units SQ BID 3-4 Higher Order ONE of the following medications: *Heparin 5000 units SQ TID *Enoxaparin/Lovenox 40 mg SQ daily (WT < 150 kg, CrCl > 30 mL/min) *Enoxaparin/Lovenox 30 mg SQ daily (WT < 150 kg, CrCl > 10-29 mL/min) *Enoxaparin/Lovenox 30 mg SQ BID (WT < 150 kg, CrCl > 30 mL/min) AND/OR *Sequential Compression Device (SCD) 5 or more Highest Order ONE of the following medications: *Heparin 5000 units SQ TID (Preferred with Epidurals) *Enoxaparin/Lovenox 40 mg SQ daily (WT < 150 kg, CrCl > 30 mL/min) *Enoxaparin/Lovenox 30 mg SQ daily (WT < 150 kg, CrCl > 10-29 mL/min) *Enoxaparin/Lovenox 30 mg SQ BID (WT < 150 kg, CrCl > 30 mL/min) AND *Sequential Compression Device (SCD) Assessment and Plan - Plan This is a 63-year-old male with a history of COPD, CVA/TIA, coronary artery disease, diabetes mellitus with neuropathy, hyperlipidemia, A. fib on Coumadin and DVT. Patient presented to the emergency room because of not feeling well and epigastric pain starting this morning prior ED notes. While in the emergency department, he was noted to be altered. He was drowsy, arousable with sternal rub. He was given Narcan with no improvement in his mental status. Head CT without acute findings. EKG tracing independently reviewed by me with sinus rhythm with T inversion in V5 and V6. Chest x-ray interval reviewed by me with no acute cardiopulmonary disease. Ammonia level within normal limits. Urine drug screen positive for marijuana. ABG unremarkable pH 7.35 PCO2 47 PO2 84 on 2 L. BUN 20 creatinine 1.59 which is elevated. Abnormal urinalysis with positive nitrite, large leukocyte esterase and WBC of 12. Abdominal pain. Abdominal CT without acute findings. Lipase within normal limits. Patient has abnormal urinalysis. No CVA and abdominal tenderness. Continue IV Rocephin and monitor cultures Encephalopathy. Etiology to be determined, TIA versus CVA versus seizure versus metabolic. Unable to do MRI. This is improved. Neuro checks, seizure precautions and obtain EEG. Monitor on telemetry Acute kidney injury likely secondary to dehydration. CK within normal limits. Received fluid bolus start gentle IV hydration history of diastolic dysfunction Update med list discussed with nursing Discharge Planning: [facility] vs rehab. PT and ST consults
[2018-08-15] MEDS ORDERED: Warfarin Consult Pharmacy OTHER PRN (17:12)
[2018-08-15] MEDS ORDERED: DICLOFENAC SODIUM 2 GM TOPICAL PRN (18:00)
[2018-08-15] MEDS ORDERED: Lidocaine 5% Oint 37 GM Tube TOPICAL PRN (18:00)
[2018-08-15] MEDS: Insulin NovoLOG Aspart Correctional Sugar Inj SQ SCH ×2 (18:14→21:51)
[2018-08-15] MEDS: Enoxaparin Inj 120 MG/0.8 ML Syringe SQ SCH (18:20)
--- NOTE | 2018-08-15 18:42 | MG ---
cc: Fiona Randle MD EEG NUMBER: [id number] REFERRING PHYSICIAN: Tex Souza MD ROOM: F69 Asleep, unresponsive. Photic done with some abnormality at T4 on previous EEG 03/05/2018. CT is negative. Here for not feeling well, epigastric pain, brain surgery aneurysm, seizure history. Given Narcan and Rocephin. DESCRIPTION OF RECORD: Overall, background slow, predominately 2-3 Hz, but a bit of artifact throughout. No appreciable epileptiform features. Photic stimulation without any driving response. IMPRESSION: Moderate slowing of background consistent with encephalopathy. No epileptiform features. Fiona Randle MD DF/rei , 05:37 PM , 05:41 PM
[2018-08-15] MEDS: Senna/Docusate Sodium 8.6/50 MG Tablet PO SCH ×2 (21:47→21:52)
[2018-08-16] MEDS: Sod Chloride 0.9% Inj 1,000 ML IV.CONT SCH (06:18)
[2018-08-16] MEDS: Enoxaparin Inj 120 MG/0.8 ML Syringe SQ SCH (06:18)
[2018-08-16 07:57] LABS: Baso # (Auto) 0.1 th/mm3 (0.0-0.2); Baso % (Auto) 1.5 % (0.0-2.0); Eos # (Auto) 0.2 th/mm3 (0.0-0.4); Eos % (Auto) 2.4 % (0.0-4.0); Hematocrit 32.6 % (39.0-51.0); Hemoglobin 10.1 gm/dL (13.0-17.0); Lymph # (Auto) 1.8 th/mm3 (1.0-4.8); Lymph % (Auto) 23.7 % (9.0-44.0); Mean Corpuscular Hemoglobin 25.2 pg (27.0-34.0); Mean Corpuscular Volume 81.6 fL (80.0-100.0); Mean Platelet Volume 8.3 fL (7.0-11.0); Mono # (Auto) 0.6 th/mm3 (0.0-0.9); Mono % (Auto) 7.9 % (0.0-8.0); Neut # (Auto) 4.8 th/mm3 (1.8-7.7); Neut % (Auto) 64.5 % (16.0-70.0); Platelet Count 242 th/mm3 (150-450); Red Cell Distribution Width 20.3 % (11.6-17.2); White Blood Count 7.5 th/mm3 (4.0-11.0)
[2018-08-16 08:06] LABS: INR 1.3 Ratio; Prothrombin Time 12.7 sec (9.8-11.6)
[2018-08-16 08:08] LABS: Mean Corpuscular HGB Conc 30.8 % (32.0-36.0)
[2018-08-16 08:22] LABS: Anion Gap 5 meq/L (5-15); Blood Urea Nitrogen 15 mg/dL (7-18); Calcium 8.4 mg/dL (8.5-10.1); Chloride 106 meq/L (98-107); Glomerular Filtration Rate Greater Than 89 mL/min (>89); Glucose,Random 102 mg/dL (74-106); Potassium 3.8 meq/L (3.5-5.1); Sodium 140 meq/L (136-145)
[2018-08-16] MEDS ORDERED: Lisinopril 5 MG Tablet PO SCH (09:00)
[2018-08-16] MEDS ORDERED: dilTIAZem CD 240 MG Capsule PO SCH (09:00)
[2018-08-16] MEDS ORDERED: Spironolactone 25 MG Tablet PO SCH (09:00)
[2018-08-16] MEDS ORDERED: Insulin Detemir Inj 1,000 UNIT/10 ML Vial SQ SCH (09:00)
[2018-08-16] MEDS ORDERED: Folic Acid 1 MG Tablet PO SCH (09:00)
[2018-08-16] MEDS ORDERED: Ferrous Sulfate 325 MG Tablet PO SCH (09:00)
[2018-08-16] MEDS ORDERED: Pantoprazole Sodium 20 MG DR Tablet PO SCH (09:00)
[2018-08-16] MEDS: Insulin NovoLOG Aspart Correctional Sugar Inj SQ SCH ×2 (09:03→12:39)
--- NOTE | 2018-08-16 09:37 | P.DS ---
Date of admission: 08/15/18 13:00 Primary care physician: UNKNOWN Attending physician on discharge: Farideh Yuan Anticipated date of discharge: 08/16/18 Brief History from admission: This is a 63-year-old male with a history of COPD, CVA/TIA, coronary artery disease, diabetes mellitus with neuropathy, hyperlipidemia, A. fib on Coumadin and DVT. Patient presented to the emergency room because of not feeling well and epigastric pain starting this morning prior ED notes. While in the emergency department, he was noted to be altered. He was drowsy, arousable with sternal rub. He was given Narcan with no improvement in his mental status. Head CT without acute findings. EKG tracing independently reviewed by me with sinus rhythm with T inversion in V5 and V6. Chest x-ray interval reviewed by me with no acute cardiopulmonary disease. Ammonia level within normal limits. Urine drug screen positive for marijuana. ABG unremarkable pH 7.35 PCO2 47 PO2 84 on 2 L. BUN 20 creatinine 1.59 which is elevated. Abnormal urinalysis with positive nitrite, large leukocyte esterase and WBC of 12. ED physician advised hospitalization for further evaluation and treatment. He also received 1 L fluid hydration and Rocephin 1 g IV x1. When I evaluated patient, he did not wake up when called but when I pinched his left arm he woke up. Oriented to person and place. Denies any complaints including abdominal pain. Abdominal CT w/o acute findings and normal Lipase. Does not remember why he came to the hospital or how he got to the hospital. Discussed with , patient complaining of epigastric pain and was confused. 911 was called and was brought in by EMS Patient update on day of discharge: Patient reports feeling back to baseline. He states he is thinking clearly and his abdominal pain and vomiting has subsided. He ate his entire breakfast with no issues. Complains of chronic RLE pain. Otherwise feels ready to go home. *Pt has sulfa on allergy list with rxn as GI upset but when asked he states he takes Bactrim "all the time" with no issues. However, he complains of severe diarrhea with Cipro. DS: Diagnosis - Discharge Diagnosis (1) Encephalopathy Status: Acute (2) UTI (urinary tract infection) Status: Acute DS: Medications - Discharge Medications Prescriptions: sulfamethoxazole-trimethoprim [Bactrim DS] 1 tab PO Q12H #14 tab DS: Summary Hospital Course: 63-year-old male with a history of COPD on O2 at night, CVA/TIA, CAD, DM with neuropathy and peripheral vascular disease, HLD, AFIB and history of DVT anticoagulated on Coumadin admitted to observation on 08/15 for altered mental status, abdominal pain, and vomiting. CT head negative for acute process and EEG showed encephalopathy. U/A notable for nitrites and leukocyte esterase and chemistry remarkable for DOMONIQUE with GFR 44. UDS + for marijuana. He was treated with Rocephin and IV fluids with normalization of his renal and mental function. He was discharged in stable condition on 08/16 with a seven day course of Bactrim with final urine culture results still pending. Will plan on contacting the patient should his culture result in any resistance to Bactrim. - Time Spent with Patient Total time spent providing and/or coordinating discharge services: Less than 30 minutes - Quality: VTE Deep Vein Thrombosis/Pulmonary Embolism Present on Admission: Yes Exam Vital signs: Vital Signs 08/15/18 10:22 08/15/18 10:28 08/15/18 12:00 Temperature Pulse Rate 60 59 L Respiratory Rate 16 18 14 Blood Pressure 128/58 L 105/53 L Pulse Oximetry 98 100 08/15/18 14:15 08/15/18 15:54 08/15/18 19:43 Temperature 97.6 F Pulse Rate 60 62 Respiratory Rate 18 16 17 Blood Pressure 127/74 Pulse Oximetry 100 99 08/15/18 20:00 08/15/18 23:16 08/16/18 04:00 Temperature 98.9 F 97.7 F Pulse Rate 65 67 68 Respiratory Rate 18 16 18 Blood Pressure 137/68 142/69 H Pulse Oximetry 99 98 98 08/16/18 04:16 08/16/18 07:41 08/16/18 08:36 Temperature 98.3 F Pulse Rate 62 74 Respiratory Rate 16 18 Blood Pressure 136/62 Pulse Oximetry 98 91 L Intake & Output 08/15/18 08/16/18 08/16/18 18:59 06:59 18:59 Intake Total 1100 / 1100 1720 / 1720 Output Total 300 / 300 250 / 250 Balance 800 / 800 1470 / 1470 Weight 117.934 kg 118.23 kg Intake: IV 1100 / 1100 1000 / 1000 NS Inj 1,000 ML @ 70 mls/hr IV. 1000 / 1000 CONT .[id number] JAMIE Rx#:[id number] NS Inj 1,000 ML @ 1000 mls/hr 1000 / 1000 IV.SIG BOLUS JAMIE Rx#:[id number] Rocephin Inj 1,000 MG In NS Inj 100 / 100 100 ML @ 200 mls/hr IV.SIG ONCE ONE Rx#:[id number] Oral 720 / 720 Output: Urine 250 / 250 Urine Amount (Catheter) 300 / 300 Indwelling Urethral Catheter 300 / 300 Other: Post Void Residual 283 # Voids 3 Date of Last Bowel Movement 09/14/18 Weight On Admission 117.934 kg Narrative: GENERAL: WN, WD obese male resting in bed in NAD. SKIN: Warm and dry. Port L upper chest with no surrounding erythema, warmth, or drainage. HEENT: AT/NC. Pupils equal and round. MMM. HEART: IRR no m/r/g. LUNGS: CTAB without wheezes or crackles. ABDOMEN: +BS, soft, NT, ND. EXTREMITIES: RLE with chronic skin thickening, edema, and brawny color changes. LLE amputated. NEURO: Awake and alert. Nonfocal. Oriented x 3. PSYCH: Appropriate mood and affect. Results Procedures completed during hospitalization: None Completed studies during hospitalization: EEG showing encephalopathy. No epileptiform features. Labs on day of discharge: Labs from last 24 hours 08/16/18 08/16/18 08/16/18 07:40 07:40 07:40 WBC 7.5 RBC 4.00 L Hgb 10.1 L Hct 32.6 L MCV 81.6 MCH 25.2 L MCHC 30.8 L RDW 20.3 H Plt Count 242 MPV 8.3 Neut % (Auto) 64.5 Lymph % (Auto) 23.7 [place] % (Auto) 7.9 Eos % (Auto) 2.4 Baso % (Auto) 1.5 Neut # (Auto) 4.8 Lymph # (Auto) 1.8 [place] # (Auto) 0.6 Eos # (Auto) 0.2 Baso # (Auto) 0.1 WBC Differential . Differential Comment Auto diff final PT 12.7 H INR 1.3 APTT Puncture Site Patient Temperature O2 Saturation ABG pH ABG pCO2 ABG pO2 ABG HCO3 ABG O2 Content ABG Base Excess ABG Methemoglobin Allan Test Hemoglobin Carboxyhemoglobin O2 Delivery Device Liter Flow Critical Value Sodium 140 Potassium 3.8 Chloride 106 Carbon Dioxide 29.0 Anion Gap 5 BUN 15 Creatinine 0.74 Estimated GFR Greater than 89 POC Glucose Random Glucose 102 Calcium 8.4 L Magnesium Total Bilirubin AST ALT Alkaline Phosphatase Ammonia Total Creatine Kinase Troponin I Total Protein Albumin Lipase TSH Urine Color Urine Clarity Urine pH Ur Specific [place] Urine Protein Urine Glucose (UA) Urine Ketones Urine Occult Blood Urine Nitrate Urine Bilirubin Urine Urobilinogen Ur Leukocyte Esterase Urine RBC Urine WBC Ur Squamous Epith Cells Urine Bacteria Urine Mucus Micro UA Comment Ur Microscopic Review Urine Culture Comments Urine Opiates Screen Ur Barbiturates Screen Ur Amphetamines Screen U Benzodiazepines Scrn Urine Cocaine Screen U Cannabinoids Screen Serum Alcohol 08/15/18 08/15/18 08/15/18 21:50 18:10 12:30 WBC RBC Hgb Hct MCV MCH MCHC RDW Plt Count MPV Neut % (Auto) Lymph % (Auto) [place] % (Auto) Eos % (Auto) Baso % (Auto) Neut # (Auto) Lymph # (Auto) [place] # (Auto) Eos # (Auto) Baso # (Auto) WBC Differential Differential Comment PT 11.8 H INR 1.2 APTT 31.9 H Puncture Site Patient Temperature O2 Saturation ABG pH ABG pCO2 ABG pO2 ABG HCO3 ABG O2 Content ABG Base Excess ABG Methemoglobin Allan Test Hemoglobin Carboxyhemoglobin O2 Delivery Device Liter Flow Critical Value Sodium Potassium Chloride Carbon Dioxide Anion Gap BUN Creatinine Estimated GFR POC Glucose 112 H 116 H Random Glucose Calcium Magnesium Total Bilirubin AST ALT Alkaline Phosphatase Ammonia Total Creatine Kinase Troponin I Total Protein Albumin Lipase TSH Urine Color Urine Clarity Urine pH Ur Specific [place] Urine Protein Urine Glucose (UA) Urine Ketones Urine Occult Blood Urine Nitrate Urine Bilirubin Urine Urobilinogen Ur Leukocyte Esterase Urine RBC Urine WBC Ur Squamous Epith Cells Urine Bacteria Urine Mucus Micro UA Comment Ur Microscopic Review Urine Culture Comments Urine Opiates Screen Ur Barbiturates Screen Ur Amphetamines Screen U Benzodiazepines Scrn Urine Cocaine Screen U Cannabinoids Screen Serum Alcohol 08/15/18 08/15/18 08/15/18 11:13 11:09 11:09 WBC RBC Hgb Hct MCV MCH MCHC RDW Plt Count MPV Neut % (Auto) Lymph % (Auto) [place] % (Auto) Eos % (Auto) Baso % (Auto) Neut # (Auto) Lymph # (Auto) [place] # (Auto) Eos # (Auto) Baso # (Auto) WBC Differential Differential Comment PT INR APTT Puncture Site Right radial Patient Temperature 98.6 O2 Saturation 92 ABG pH 7.35 L ABG pCO2 47 H ABG pO2 84 ABG HCO3 26 ABG O2 Content 14.1 ABG Base Excess 0.6 ABG Methemoglobin 0.6 Allan Test Present Hemoglobin 10.8 L Carboxyhemoglobin 3.2 O2 Delivery Device Nasal cannula Liter Flow 2.00 Critical Value No Sodium Potassium Chloride Carbon Dioxide Anion Gap BUN Creatinine Estimated GFR POC Glucose Random Glucose Calcium Magnesium Total Bilirubin AST ALT Alkaline Phosphatase Ammonia Total Creatine Kinase Troponin I Total Protein Albumin Lipase TSH Urine Color Becky Urine Clarity Hazy H Urine pH 5.0 Ur Specific [place] 1.027 Urine Protein 30 H Urine Glucose (UA) Negative Urine Ketones Negative Urine Occult Blood Negative Urine Nitrate Positive H Urine Bilirubin Negative Urine Urobilinogen Less than 2 Ur Leukocyte Esterase Large H Urine RBC 2 Urine WBC 12 H Ur Squamous Epith Cells <1 Urine Bacteria Occasional H Urine Mucus Few H Micro UA Comment Cath-culture ind Ur Microscopic Review Not Reportable Urine Culture Comments Cath-cult indicated Urine Opiates Screen Neg Ur Barbiturates Screen Neg Ur Amphetamines Screen Neg U Benzodiazepines Scrn Neg Urine Cocaine Screen Neg U Cannabinoids Screen Pos H Serum Alcohol 08/15/18 08/15/18 08/15/18 11:02 09:48 09:48 WBC RBC Hgb Hct MCV MCH MCHC RDW Plt Count MPV Neut % (Auto) Lymph % (Auto) [place] % (Auto) Eos % (Auto) Baso % (Auto) Neut # (Auto) Lymph # (Auto) [place] # (Auto) Eos # (Auto) Baso # (Auto) WBC Differential Differential Comment PT INR APTT Puncture Site Patient Temperature O2 Saturation ABG pH ABG pCO2 ABG pO2 ABG HCO3 ABG O2 Content ABG Base Excess ABG Methemoglobin Allan Test Hemoglobin Carboxyhemoglobin O2 Delivery Device Liter Flow Critical Value Sodium 136 Potassium 3.8 Chloride 105 Carbon Dioxide 24.9 Anion Gap 6 BUN 20 H Creatinine 1.59 H Estimated GFR 44 L POC Glucose Random Glucose 161 H Calcium 8.8 Magnesium 2.0 Total Bilirubin 0.5 AST 12 L ALT 10 L Alkaline Phosphatase 55 Ammonia 20 Total Creatine Kinase 48 Troponin I Less than 0.02 L Total Protein 8.2 Albumin 3.2 L Lipase 90 TSH 1.960 Urine Color Urine Clarity Urine pH Ur Specific [place] Urine Protein Urine Glucose (UA) Urine Ketones Urine Occult Blood Urine Nitrate Urine Bilirubin Urine Urobilinogen Ur Leukocyte Esterase Urine RBC Urine WBC Ur Squamous Epith Cells Urine Bacteria Urine Mucus Micro UA Comment Ur Microscopic Review Urine Culture Comments Urine Opiates Screen Ur Barbiturates Screen Ur Amphetamines Screen U Benzodiazepines Scrn Urine Cocaine Screen U Cannabinoids Screen Serum Alcohol 3 08/15/18 09:48 WBC 9.4 RBC 4.33 L Hgb 11.2 L Hct 35.6 L MCV 82.2 MCH 25.8 L MCHC 31.4 L RDW 20.2 H Plt Count 264 MPV 8.6 Neut % (Auto) 78.3 H Lymph % (Auto) 13.9 [place] % (Auto) 6.5 Eos % (Auto) 0.6 Baso % (Auto) 0.7 Neut # (Auto) 7.3 Lymph # (Auto) 1.3 [place] # (Auto) 0.6 Eos # (Auto) 0.1 Baso # (Auto) 0.1 WBC Differential . Differential Comment Auto diff final PT INR APTT Puncture Site Patient Temperature O2 Saturation ABG pH ABG pCO2 ABG pO2 ABG HCO3 ABG O2 Content ABG Base Excess ABG Methemoglobin Allan Test Hemoglobin Carboxyhemoglobin O2 Delivery Device Liter Flow Critical Value Sodium Potassium Chloride Carbon Dioxide Anion Gap BUN Creatinine Estimated GFR POC Glucose Random Glucose Calcium Magnesium Total Bilirubin AST ALT Alkaline Phosphatase Ammonia Total Creatine Kinase Troponin I Total Protein Albumin Lipase TSH Urine Color Urine Clarity Urine pH Ur Specific [place] Urine Protein Urine Glucose (UA) Urine Ketones Urine Occult Blood Urine Nitrate Urine Bilirubin Urine Urobilinogen Ur Leukocyte Esterase Urine RBC Urine WBC Ur Squamous Epith Cells Urine Bacteria Urine Mucus Micro UA Comment Ur Microscopic Review Urine Culture Comments Urine Opiates Screen Ur Barbiturates Screen Ur Amphetamines Screen U Benzodiazepines Scrn Urine Cocaine Screen U Cannabinoids Screen Serum Alcohol - Impressions Abdomen/Pelvis CT 08/15/18 09:32 CONCLUSION: 1. Radiodense debris or stones in the gallbladder. 2. Stable noncontrast CT appearance of the abdomen and pelvis. Chest X-Ray 08/15/18 09:32 CONCLUSION: No focal lung disease Head CT 08/15/18 09:37 CONCLUSION: No acute intracranial findings . Discharge Plan - Discharge Disposition Patient Disposition: 01 Discharge Home - Discharge Condition Condition: Stable - Discharge Order Discharge Orders: Discharge Order (Routine); Ordered 08/16/18 Ordered By: Farideh Yuan - Discharge Details Anticipated Discharge Date: 08/16/18 - Physicians Team Primary Care Provider: UNKNOWN, Attending Provider: Farideh Yuan Other Providers: Minh Wilkinson
[2018-08-16] MEDS: Senna/Docusate Sodium 8.6/50 MG Tablet PO SCH (09:49)
--- NOTE | 2018-08-16 13:26 | ECG ---
Date Performed: 08/15/2018 Time Performed: 09:31:17 PTAGE: 63 years EKG: Sinus rhythm NONSPECIFIC T-WAVE ABNORMALITY BORDERLINE ECG PREVIOUS TRACING : 04/17/2018 11.34 Compared to previous tracing, diffuese T-wave changes are n ew.Cannot rule out ischemia. DOCTOR: Bg Curiel Interpretating Date/Time 08/16/2018 13:25:48
[2018-08-16 14:47] VITALS: O2SAT 93
[2018-08-16 16:20] VITALS: BP 140/68; PULSE 72; RESP 20; TEMP 98
--- NOTE | 2018-08-17 14:05 | P.PNADD ---
Addendum to Inpatient Note Reason for Addendum: Additional Documentation Additional information: Final urine culture growing E. coli resistant to Bactrim which is what the patient was sent out on, sensitive to Augmentin. Called patient and spoke with as patient was sleeping. She informed me the patient was doing well. Mental status was normal, and he was overall doing well. He had picked up the Bactrim and was taking it as prescribed; she states she will go to [facility] on [address] to bean picker the new prescription. Called in Augmentin 875 mg PO BID x 14 days.
== END 2018-08-16 18:35 | disposition home or self-care (01) ==
LOC: NEPC 09:10 → NEDA 09:10 → NEPFCDU 13:23
PROVIDERS: ADMIT Family Medicine; ATTEND Family Medicine